=== PATIENT | male | born 1980 | race Hispanic/Latino ===

== ENCOUNTER 2017-10-09 03:27 | Emergency (ER) | payer OTHER, SELFPAY ==
[2017-10-09 03:42] VITALS: BMI 28.8
--- NOTE | 2017-10-09 04:03 | ED PDOC ---
Arrival/HPI - General Chief Complaint: Back Pain Time Seen by Provider: 10/09/17 03:28 Historian: Patient - History of Present Illness Narrative History of Present Illness (Text): 10/09/17 03:54 37 year old male, whose past medical history includes chronic neck and lower back pain, presents complaining of chronic back pain that radiates to the shoulder and neck. Patient takes Oxycodone, Methadone, and Morphine which is prescribed to him every 2 weeks. Patient states he fell 3 days ago. pt staets "he was getting out of bed, and "slid into wall" Patient denies any fever, chills, chest pain, shortness of breath, nausea, vomiting, diarrhea, urinary symptoms, headache, dizziness, or any other complaints. 10/09/17 04:52 Symptom Onset: Gradual Symptom Course: Unchanged Activities at Onset: Light Context: Home Past Medical History - Provider Review Nursing Documentation Reviewed: Yes - Tetanus Immunization Tetanus Immunization: Unknown - Cardiac Hx Cardiac Disorders: No - Pulmonary Hx Respiratory Disorders: No - Neurological Hx Neurological Disorder: Yes Other/Comment: NUMBNESS AND TINGLING SENSATION - HEENT Hx HEENT Disorder: No - Renal Hx Renal Disorder: No - Endocrine/Metabolic Hx Endocrine Disorders: No - Hematological/Oncological Hx Blood Disorders: No - Integumentary Hx Dermatological Disorder: No - Musculoskeletal/Rheumatological Hx Arthritis: Yes - Gastrointestinal Hx Gastrointestinal Disorders: Yes Other/Comment: ACID REFLUX - Genitourinary/Gynecological Hx Genitourinary Disorders: No - Psychiatric Hx Psychophysiologic Disorder: Yes Hx Depression: Yes Hx Substance Use: Yes - Surgical History Other/Comment: NECK SURGERY - Anesthesia Hx Anesthesia: Yes - Suicidal Assessment Feels Threatened In Home Enviroment: No Family/Social History - Physician Review Nursing Documentation Reviewed: Yes Family/Social History: No Known Family HX Smoking Status: Heavy Smoker > 10 Cigarettes Daily Hx Alcohol Use: No Hx Substance Use: Yes Allergies/Home Meds Allergies/Adverse Reactions: Allergies erythromycin base Allergy (Verified 10/09/17 03:48) ITCHING duloxetine HCl [From Cymbalta] Adverse Reaction (Verified 10/09/17 03:48) RASH Home Medications: Home Meds Medication Instructions Recorded Confirmed ALPRAZolam [Xanax] 2 mg PO BID 03/10/15 10/09/17 Methadone Hydrochloride [Methadone] 80 mg PO TID 03/10/15 10/09/17 Morphine Sulfate [Ms Contin] 100 mg PO Q12 03/10/15 10/09/17 Oxycodone Hydrochloride [Oxycodone] 30 mg PO Q6 03/10/15 10/09/17 Morphine Sulfate [Alexandra] 100 mg PO BID 12/17/15 10/09/17 Review of Systems - Physician Review All systems were reviewed & negative as marked: Yes - Review of Systems Constitutional: absent: Fevers, Other (Chills) Respiratory: absent: SOB Cardiovascular: absent: Chest Pain Gastrointestinal: absent: Abdominal Pain, Diarrhea, Nausea, Vomiting Genitourinary Male: absent: Dysuria, Frequency, Hematuria Musculoskeletal: Back Pain, Neck Pain, Other (Shoulder pain) Neurological: absent: Headache, Dizziness Physical Exam Vital Signs Reviewed: Yes Vital Signs Temp Pulse Resp BP Pulse Ox 10/09/17 05:16 99.5 F 99 H 17 138/82 99 10/09/17 04:22 99.7 F H 108 H 18 139/71 100 Temperature: Afebrile Blood Pressure: Normal Pulse: Tachycardic Respiratory Rate: Normal Appearance: Positive for: Well-Appearing, Non-Toxic, Comfortable Pain Distress: None Mental Status: Positive for: Alert and Oriented X 3 - Systems Exam Head: Present: Atraumatic, Normocephalic Pupils: Present: PERRL Extroacular Muscles: Present: EOMI Conjunctiva: Present: Normal Mouth: Present: Moist Mucous Membranes Neck: Present: Normal Range of Motion Respiratory/Chest: Present: Clear to Auscultation, Good Air Exchange. No: Respiratory Distress, Accessory Muscle Use Cardiovascular: Present: Regular Rate and Rhythm, Normal S1, S2. No: Murmurs Abdomen: No: Tenderness, Distention, Peritoneal Signs Back: Present: Normal Inspection, Paraspinal Tenderness, Other (healed scar to midline back). No: Midline Tenderness Upper Extremity: Present: Normal Inspection. No: Cyanosis, Edema Lower Extremity: Present: Normal Inspection. No: Edema Neurological: Present: GCS=15, CN II-XII Intact, Speech Normal, Other ((+)left leg weakness, (+)baseline) Skin: Present: Warm, Dry, Normal Color. No: Rashes Psychiatric: Present: Alert, Oriented x 3, Normal Insight, Normal Concentration Medical Decision Making ED Course and Treatment: 10/09/17 03:50 Impression: 37 year old male presents complaining of chronic back pain that radiates to the shoulders and neck. ?fall, minimal injury, no indication for any imaging, as pt states "he slid into wall" Plan: -- Toradol -- Reassess and disposition Prior Visits: Notes and results from previous visits were reviewed. Progress Notes: njrx reviewd: numours narcotic rx. pt treated with toradol im. noted low grade temp. pt denies any complaints, cough, sore throat, cardiopulm, abdominal pain, n/v/d, urinary changes. declines any eval for low grade temp. advised strict return precautions. pt reports ho of chronic leg paralysis. 10/09/17 04:53 10/04/2017 1 10/04/2017 OXYCODONE HCL 30 MG TABLET 60.0 15 MA MERRITT [id number] JOSEY ([id number]) 0 180.0 MME Private [place] 10/04/2017 1 10/04/2017 METHADONE HCL 10 MG TABLET 120.0 15 MA MERRITT [id number] JOSEY ([id number]) 0 240.0 MME [place] 10/04/2017 1 09/22/2017 DEXTROAMP-AMPHETAMIN 20 MG TAB 60.0 30 PA HRI [id number] JOSEY ([phone]) 0 Private Pay [place] 10/04/2017 1 09/22/2017 DIAZEPAM 10 MG TABLET 60.0 30 PA HRI [id number] JOSEY ([phone]) 0 Private Pay [place] 09/20/2017 1 09/20/2017 OXYCODONE HCL 30 MG TABLET 60.0 15 MA MERRITT [id number] JOSEY ([id number]) 0 180.0 MME [place] 09/20/2017 1 09/20/2017 METHADONE HCL 10 MG TABLET 120.0 15 MA MERRITT [id number] JOSEY ([id number]) 0 240.0 MME [place] 09/06/2017 1 09/06/2017 DIAZEPAM 10 MG TABLET 60.0 30 PA HRI [id number] JOSEY ([phone]) 0 Private Pay [place] 09/06/2017 1 09/06/2017 DEXTROAMP-AMPHETAMIN 20 MG TAB 60.0 30 PA HRI [id number] JOSEY ([phone]) 0 Private Pay [place] 08/22/2017 1 08/22/2017 OXYCODONE HCL 30 MG TABLET 84.0 21 MA MERRITT [id number] JOSEY ([phone]) 0 180.0 [facility] [place] 08/22/2017 1 08/22/2017 METHADONE HCL 10 MG TABLET 168.0 21 MA MERRITT [id number] JOSEY ([phone]) 0 240.0 MME [place] 08/16/2017 1 08/16/2017 OXYCODONE HCL 30 MG TABLET 60.0 15 MA MERRITT [id number] JOSEY ([phone]) 0 180.0 MME [place] 08/16/2017 1 08/16/2017 METHADONE HCL 10 MG TABLET 120.0 15 MA MERRITT [id number] JOSEY ([phone]) 0 240.0 MME [place] 08/12/2017 1 08/12/2017 DEXTROAMP-AMPHETAMIN 20 MG TAB 60.0 30 PA HRI [id number] JOSEY ([phone]) 0 Private Pay [place] 08/12/2017 1 08/12/2017 DIAZEPAM 10 MG TABLET 60.0 30 PA HRI [id number] JOSEY ([phone]) 0 Private Pay [place] 08/02/2017 1 08/02/2017 OXYCODONE HCL 30 MG TABLET 60.0 15 MA MERRITT [id number] JOSEY ([phone]) 0 180.0 MME [place] 08/02/2017 1 08/02/2017 METHADONE HCL 10 MG TABLET 120.0 15 MA MERRITT [id number] JOSEY ([phone]) 0 240.0 MME [place] 06/28/2017 1 06/28/2017 DEXTROAMP-AMPHETAMIN 20 MG TAB 60.0 30 PA HRI [id number] JOSEY ([phone]) 0 Private Pay [place] 06/21/2017 1 06/21/2017 MORPHINE SULF ER 60 MG TABLET 30.0 15 MA MERRITT [id number] JOSEY ([id number]) 0 120.0 MME Private [place] 06/21/2017 1 06/21/2017 OXYCODONE HCL 30 MG TABLET 60.0 15 MA MERRITT [id number] JOSEY ([phone]) 0 180.0 MME Private [place] 06/21/2017 1 06/21/2017 METHADONE HCL 10 MG TABLET 120.0 15 MA MERRITT [id number] JOSEY ([phone]) 0 240.0 MME Private [place] 10/09/17 05:08 10/09/17 06:44 - Medication Orders Current Medication Orders: Discontinued Medications Ketorolac Tromethamine (Toradol) 30 mg IM STAT STA Stop: 10/09/17 03:54 Last Admin: 10/09/17 04:07 Dose: 30 mg MAR Pain Assessment Document 10/09/17 04:07 IT (Rec: 10/09/17 04:07 IT [id number]) Pain Reassessment Is this a pain reassessment? No Sleep Is patient sleeping during reassessment? No Presence of Pain Presence of Pain Yes Pain Scale Used Pain Scale Used Numeric IM Administration Charges Document 10/09/17 04:07 IT (Rec: 10/09/17 04:07 IT [id number]) Injection Site MAR Injection Site Right Deltoid Charges for Administration # of IM Administrations 1 - Scribe Statement The provider has reviewed the documentation as recorded by the Francheska Sousa Provider Scribe Attestation: All medical record entries made by the Scribe were at my direction and personally dictated by me. I have reviewed the chart and agree that the record accurately reflects my personal performance of the history, physical exam, medical decision making, and the department course for this patient. I have also personally directed, reviewed, and agree with the discharge instructions and disposition. Disposition/Present on Arrival - Present on Arrival Any Indicators Present on Arrival: No History of DVT/PE: No History of Uncontrolled Diabetes: No Urinary Catheter: No History of Decub. Ulcer: No History Surgical Site Infection Following: None - Disposition Have Diagnosis and Disposition been Completed?: Yes Diagnosis: Back pain Disposition: HOME/ ROUTINE Disposition Time: 04:00 Condition: STABLE Discharge Instructions (ExitCare): Upper Back Pain Additional Instructions: return to er with worsening symptoms or concenrs. Referrals: [facility] [Outside] - Follow up with primary [facility] [Outside] - Follow up with primary Forms: [employer] (Japanese)
[2017-10-09 05:17] VITALS: BP 138/82; PULSE 99; RESP 17; TEMP 99.5; O2SAT 99
== END 2017-10-09 05:17 | disposition home or self-care (01) ==
LOC: ED 03:27
DX: M54.5 Low back pain (principal); F17.210 Nicotine dependence, cigarettes, uncomplicated
CPT/HCPCS: 96372; 99282; J1885

== ENCOUNTER 2017-11-05 23:30 | Inpatient (IN) | payer MEDICAID, OTHER ==
[2017-11-05 23:37] VITALS: BMI 32.5
[2017-11-06] MEDS ORDERED: Sodium Chloride 0.9% 1,000 ML IV STA
[2017-11-06 00:17] LABS: BASO # 0.02 K/mm3 (0.0-2.0); BASO % 0.3 % (0.0-3.0); EOS % 0.3 % (1.5-5.0); GRAN # 5.1 (1.4-6.5); GRAN % 68.3 % (50.0-68.0); HEMOGLOBIN 14.1 g/dL (14.0-18.0); LYMPH # 1.8 (1.2-3.4); LYMPH % 23.6 % (22.0-35.0); MEAN CELL VOLUME 83.5 fl (80.0-105.0); MEAN CORPUSCULAR HEMOGLOBIN 28.4 pg (25.0-35.0); MEAN PLATELET VOLUME 9.2 fl (7.0-11.0); MONO # 0.6 (0.1-0.6); MONO % 7.5 % (1.0-6.0); RBC 4.97 10^6/uL (3.5-6.1); RED CELL DISTRIBUTION WIDTH 13.6 % (11.5-14.5); WHITE BLOOD COUNT 7.5 10^3/ul (4.5-11.0)
[2017-11-06 00:25] LABS: BLOOD UREA NITROGEN 12 mg/dL (7-21); CALCIUM 10.5 mg/dL (8.4-10.5); GFR NON-AFRICAN AMERICAN > 60
--- NOTE | 2017-11-06 00:32 | ED PDOC ---
Arrival/HPI - General Chief Complaint: Psychiatric Evaluation Time Seen by Provider: 11/05/17 23:36 Historian: Patient - History of Present Illness Narrative History of Present Illness (Text): 11/06/17 00:00 37 year old male, whose past medical history includes chronic neck and lower back pain, presents to the emergency department complaining of visual hallucinations for the past few days. As per mother, patient is "talking out of his head". Patient is oriented x3 but will say things like "Look over there she' s behind you. Look out she's about to hurt you" or be found talking to his clothes on the floor. Patient denies taking any drugs, any illicit drug use, or any alcohol use. Patient is taking Methadone. Mother states he has degenerative disc disease and had back surgery several months ago and still having back pain and left leg weakness. Patient is complaining of headache, but denies any fever , chills, chest pain, shortness of breath, nausea, vomiting, diarrhea, urinary symptoms, neck pain, dizziness, suicidal/homicidal Ideation, auditory hallucinations, or any other complaints. PMD: Dr. Gasca Time/Duration: Other (few days) Symptom Onset: Sudden Symptom Course: Unchanged Activities at Onset: Light Context: Home Past Medical History - Provider Review Nursing Documentation Reviewed: Yes - Tetanus Immunization Tetanus Immunization: Unknown - Cardiac Hx Cardiac Disorders: No - Pulmonary Hx Respiratory Disorders: No - Neurological Hx Neurological Disorder: Yes Other/Comment: NUMBNESS AND TINGLING SENSATION - HEENT Hx HEENT Disorder: No - Renal Hx Renal Disorder: No - Endocrine/Metabolic Hx Endocrine Disorders: No - Hematological/Oncological Hx Blood Disorders: No - Integumentary Hx Dermatological Disorder: No - Musculoskeletal/Rheumatological Hx Arthritis: Yes - Gastrointestinal Hx Gastrointestinal Disorders: Yes Other/Comment: ACID REFLUX - Genitourinary/Gynecological Hx Genitourinary Disorders: No - Psychiatric Hx Psychophysiologic Disorder: Yes Hx Depression: Yes Hx Substance Use: Yes - Surgical History Other/Comment: NECK SURGERY - Anesthesia Hx Anesthesia: Yes - Suicidal Assessment Feels Threatened In Home Enviroment: No Family/Social History - Physician Review Nursing Documentation Reviewed: Yes Family/Social History: No Known Family HX Smoking Status: Heavy Smoker > 10 Cigarettes Daily Hx Alcohol Use: No Hx Substance Use: Yes Allergies/Home Meds Allergies/Adverse Reactions: Allergies erythromycin base Allergy (Verified 11/05/17 23:35) ITCHING duloxetine HCl [From Cymbalta] Adverse Reaction (Verified 11/05/17 23:35) RASH Home Medications: Home Meds Medication Instructions Recorded Confirmed ALPRAZolam [Xanax] 2 mg PO BID 03/10/15 11/05/17 Methadone Hydrochloride [Methadone] 80 mg PO TID 03/10/15 11/05/17 Morphine Sulfate [Ms Contin] 100 mg PO Q12 03/10/15 11/05/17 Oxycodone Hydrochloride [Oxycodone] 30 mg PO Q6 03/10/15 11/05/17 Morphine Sulfate [Alexandra] 100 mg PO BID 12/17/15 11/05/17 Review of Systems - Physician Review All systems were reviewed & negative as marked: Yes - Review of Systems Constitutional: absent: Fevers, Other (Chills) Respiratory: absent: SOB Cardiovascular: absent: Chest Pain Gastrointestinal: absent: Abdominal Pain, Diarrhea, Nausea, Vomiting Genitourinary Male: absent: Dysuria, Frequency, Hematuria Musculoskeletal: Back Pain. absent: Neck Pain Neurological: Headache, Other (Left leg weakness). absent: Dizziness Psychiatric: Other ((+) visual hallucinations (+) auditory hallucinations). absent: Suicidal Ideation (homicidal ideation) Physical Exam Vital Signs Reviewed: Yes Vital Signs Temp Pulse Resp BP Pulse Ox 11/06/17 18:10 97.2 F L 95 H 20 144/100 H 98 11/06/17 16:10 98 F 98 H 20 138/95 H 96 11/06/17 13:50 98 F 96 H 20 144/96 H 97 11/06/17 11:45 100 H 20 138/100 H 96 11/06/17 10:00 106 H 20 142/96 H 96 11/06/17 07:22 98.2 F 104 H 18 138/100 H 98 11/06/17 06:54 99 H 18 142/100 H 99 11/06/17 05:30 103 H 18 98 11/06/17 03:30 105 H 18 97 11/06/17 01:30 106 H 18 98 11/05/17 23:45 98.6 F 11/05/17 23:41 135 H 16 158/127 H 99 Temperature: Afebrile Blood Pressure: Hypertensive Pulse: Tachycardic Respiratory Rate: Normal Appearance: Positive for: Well-Appearing, Non-Toxic, Comfortable Pain Distress: None Mental Status: Positive for: Alert and Oriented X 3 (bu does say nonsense things ) - Systems Exam Head: Present: Atraumatic, Normocephalic Pupils: Present: PERRL Extroacular Muscles: Present: EOMI Conjunctiva: Present: Normal Mouth: Present: Moist Mucous Membranes Neck: Present: Normal Range of Motion Respiratory/Chest: Present: Clear to Auscultation, Good Air Exchange. No: Respiratory Distress, Accessory Muscle Use Cardiovascular: Present: Tachycardic. No: Murmurs Abdomen: Present: Tenderness (mild diffuse tenderness). No: Distention, Peritoneal Signs Back: Present: Normal Inspection, Other (Well healed surgical scar at the midline thorasic spine with no surrounding signs of infection) Upper Extremity: Present: Normal Inspection, Other (5/5 strength ). No: Cyanosis, Edema Lower Extremity: Present: Normal Inspection, Other (4/5 strength on left leg). No: Edema Neurological: Present: GCS=15, CN II-XII Intact, Speech Normal Skin: Present: Warm, Dry, Normal Color. No: Rashes Psychiatric: Present: Alert, Oriented x 3, Normal Insight, Normal Concentration Medical Decision Making ED Course and Treatment: 11/06/17 00:00 Impression: 37 year old male presents for evaluation of visual hallucinations that began a few days ago. Plan: -- CT Head w/o contrast -- Labs -- IV Fluids -- EKG -- Reassess and disposition Prior Visits: Notes and results from previous visits were reviewed. Progress Notes: EKG shows Sinus tachycardia at 131 BPM with QRS normal, QTC normal, Normal axis. Interpreted by me. 11/06/17 04:57 PES seen and evaluated patient. Patient will be screened in [address] head done and was unremarkable. - Lab Interpretations Lab Results: 11/06/17 00:00 11/06/17 00:00 Lab Results 11/06/17 03:00: Urine Color Yellow, Urine Appearance Clear, Urine pH 6.0, Ur Specific [place] 1.020, Urine Protein Negative, Urine Glucose (UA) Negative, Urine Ketones Trace H, Urine Blood Negative, Urine Nitrate Negative, Urine Bilirubin Negative, Urine Urobilinogen 0.2, Ur Leukocyte Esterase Negative 11/06/17 03:00: Urine Opiates Screen Positive H, Urine Methadone Screen Positive H, Ur Barbiturates Screen Negative, Ur Phencyclidine Scrn Negative, Ur Amphetamines Screen Negative, U Benzodiazepines Scrn Positive H, U Oth Cocaine Metabols Negative, U Cannabinoids Screen Negative 11/06/17 00:00: Alcohol, Quantitative < 10 11/06/17 00:00: Sodium 142, Potassium 3.4 L, Chloride 93 L, Carbon Dioxide 31, Anion Gap 21 H, BUN 12, Creatinine 0.7 L, Est GFR ( Amer) > 60, Est GFR ( Non-Af Amer) > 60, Random Glucose 105, Calcium 10.5 11/06/17 00:00: WBC 7.5, RBC 4.97, Hgb 14.1, Hct 41.5 L, MCV 83.5, MCH 28.4, MCHC 34.0, RDW 13.6, Plt Count 275, MPV 9.2, Gran % 68.3 H, Lymph % (Auto) 23.6 , [place] % (Auto) 7.5 H, Eos % (Auto) 0.3 L, Baso % (Auto) 0.3, Gran # 5.10, Lymph # (Auto) 1.8, [place] # (Auto) 0.6, Eos # (Auto) 0.0, Baso # (Auto) 0.02 I have reviewed the lab results: Yes - RAD Interpretation Narrative RAD Interpretations (Text): CT Head Without Intravenous Contrast EXAM DATE/TIME: 11/06/2017 12:00 AM CLINICAL HISTORY: 37 years old, male; Signs and symptoms; Altered mental status/memory loss; Patient HX: AMS TECHNIQUE: Axial computed tomography images of the head/brain without intravenous contrast. All CT scans at this facility use at least one of these dose optimization techniques: automated exposure control; mA and/or kV adjustment per patient size (includes targeted exams where dose is matched to clinical indication); or iterative reconstruction. Coronal and sagittal reformatted images were created and reviewed. COMPARISON: No relevant prior studies available. FINDINGS: Brain: Normal. No hemorrhage. No significant white matter disease. No edema. Ventricles: Normal. No ventriculomegaly. Bones/joints: Normal. No acute fracture. Sinuses: There is trace mucoperiosteal thickening in the maxillary sinuses, consistent with chronic sinusitis. Mastoid air cells: Normal as visualized. No mastoid effusion. Soft tissues: Normal. IMPRESSION: No evidence of an acute intracranial abnormality. Thank you for allowing us to participate in the care of your patient. Dictated and Authenticated by: Misa Anderson MD 11/06/2017 6:26 AM Eastern Time ([place] & [place]) Radiology Orders: 11/06/17 00:00 HEAD W/O CONTRAST [CT] Stat - EKG Interpretation Interpreted by ED Physician: Yes Type: 12 lead EKG - Medication Orders Current Medication Orders: Docusate Sodium (Colace) 100 mg PO BID BOBBY Last Admin: 11/06/17 18:24 Dose: Haloperidol Lactate (Haldol) 2 mg IVP Q6 PRN; Protocol PRN Reason: Agitation Lorazepam (Ativan) 2 mg IVP Q4H PRN; Protocol PRN Reason: Anxiety Last Admin: 11/06/17 18:04 Dose: 2 mg IVP Administration Document 11/06/17 18:04 SRE (Rec: 11/06/17 18:05 SRE [id number]) Charges for Administration # of IVP Administrations 1 Polyethylene Glycol (Miralax) 17 gm PO BID BOBBY Discontinued Medications Docusate Sodium (Colace) 100 mg PO STAT STA Stop: 11/06/17 17:38 Last Admin: 11/06/17 18:05 Dose: 100 mg Last Bowel Movement Document 11/06/17 18:05 SRE (Rec: 11/06/17 18:05 SRE [id number]) Last Bowel Movement Last Bowel Movement 11/04/17 Haloperidol Lactate (Haldol) 3 mg IM STAT STA PRN Reason: Protocol Stop: 11/06/17 07:41 Last Admin: 11/06/17 08:16 Dose: 3 mg IM Administration Charges Document 11/06/17 08:16 SRE (Rec: 11/06/17 08:16 SRE [id number]) Injection Site MAR Injection Site Left Deltoid Charges for Administration # of IM Administrations 1 Sodium Chloride (Sodium Chloride 0.9%) 1,000 mls @ 999 mls/hr IV .Q1H1M STA Stop: 11/06/17 01:00 Last Admin: 11/06/17 00:10 Dose: 999 mls/hr eMAR Start Stop Document 11/06/17 00:10 JOL (Rec: 11/06/17 03:08 JOL [id number]) Intravenous Solution Start Date 11/06/17 Start Time 00:10 End Date 11/06/17 End time 01:11 Total Infusion Time 61 Ketorolac Tromethamine (Toradol) 30 mg IVP STAT STA Stop: 11/06/17 04:49 Last Admin: 11/06/17 04:59 Dose: 30 mg MAR Pain Assessment Document 11/06/17 04:59 JOL (Rec: 11/06/17 04:59 JOL [id number]) Pain Reassessment Is this a pain reassessment? No Sleep Is patient sleeping during reassessment? No Presence of Pain Presence of Pain Yes Pain Scale Used Pain Scale Used Numeric Location Pain Location Body Site Back Description Pain Behavior Moaning Crying Irritability Restlessness Facial Grimacing Screaming Aggravating Factors ADL's Changing Position IVP Administration Document 11/06/17 04:59 JOL (Rec: 11/06/17 04:59 JOL [id number]) Charges for Administration # of IVP Administrations 1 Lorazepam (Ativan) 2 mg IVP ONCE ONE PRN Reason: Protocol Stop: 11/06/17 01:20 Last Admin: 11/06/17 01:05 Dose: 2 mg IVP Administration Document 11/06/17 01:05 JOL (Rec: 11/06/17 03:07 [id number]) Charges for Administration # of IVP Administrations 1 Lorazepam (Ativan) 1 mg IM ONCE ONE PRN Reason: Protocol Stop: 11/06/17 07:41 Last Admin: 11/06/17 08:15 Dose: 1 mg IM Administration Charges Document 11/06/17 08:15 SRE (Rec: 11/06/17 08:16 SRE [id number]) Injection Site MAR Injection Site Right Gluteus Az Charges for Administration # of IM Administrations 1 Polyethylene Glycol (Miralax) 17 gm PO STAT STA Stop: 11/06/17 17:38 Last Admin: 11/06/17 19:00 Dose: 17 gm Potassium Chloride (K-Dur 20 Meq Er Tab) 40 meq PO STAT STA Stop: 11/06/17 17:42 Last Admin: 11/06/17 18:05 Dose: 40 meq - Transfer of Care Patient signed out to Dr:: Imm Other: Pending psych screen - Scribe Statement The provider has reviewed the documentation as recorded by the Scribe Arielle Sousa Provider Scribe Attestation: All medical record entries made by the Scribe were at my direction and personally dictated by me. I have reviewed the chart and agree that the record accurately reflects my personal performance of the history, physical exam, medical decision making, and the department course for this patient. I have also personally directed, reviewed, and agree with the discharge instructions and disposition. Disposition/Present on Arrival - Present on Arrival Any Indicators Present on Arrival: No History of DVT/PE: No History of Uncontrolled Diabetes: No Urinary Catheter: No History of Decub. Ulcer: No History Surgical Site Infection Following: None - Disposition Have Diagnosis and Disposition been Completed?: Yes Diagnosis: Altered mental status Disposition: HOSPITALIZED Disposition Time: 07:00 (Signed out due to shift change) Patient Problems: Current Active Problems Problem Status Onset Altered mental status Acute Condition: FAIR
[2017-11-06 03:32] LABS: URINE BILIRUBIN NEGATIVE (NEGATIVE); URINE BLOOD NEGATIVE (NEGATIVE); URINE GLUCOSE (UA) NEGATIVE (NEGATIVE); URINE LEUKOCYTE ESTERASE NEGATIVE Leu/uL (NEGATIVE); URINE PROTEIN NEGATIVE mg/dL (<30 mg/dL); URINE UROBILINOGEN 0.2 E.U./dL (<1 E.U./dL)
[2017-11-06 03:34] LABS: BARBITURATES, UR NEGATIVE (NEGATIVE); BENZODIAZEPINES, UR POSITIVE (NEGATIVE); OPIATES, UR POSITIVE (NEGATIVE); PHENCYCLIDINE, UR NEGATIVE (NEGATIVE)
[2017-11-06 06:11] LABS: URINE APPEARANCE CLEAR (CLEAR); URINE COLOR YELLOW (YELLOW)
--- NOTE | 2017-11-06 08:23 | CT ---
Date of service: 11/06/2017 PROCEDURE: CT HEAD WITHOUT CONTRAST. HISTORY: altered mental status COMPARISON: None available. TECHNIQUE: Axial computed tomography images were obtained through the head/brain without intravenous contrast. Radiation dose: Total exam DLP = 1083.02 mGy-cm. This CT exam was performed using one or more of the following dose reduction techniques: Automated exposure control, adjustment of the mA and/or kV according to patient size, and/or use of iterative reconstruction technique. FINDINGS: HEMORRHAGE: No intracranial hemorrhage. BRAIN: No mass effect or edema. No atrophy or chronic microvascular ischemic changes. VENTRICLES: No hydrocephalus. CALVARIUM: Unremarkable. PARANASAL SINUSES: Trace mucoperiosteal thickening of the maxillary sinuses consistent with chronic sinusitis. MASTOID AIR CELLS: Unremarkable as visualized. No inflammatory changes. OTHER FINDINGS: None. IMPRESSION: No acute intracranial pathology identified. Preliminary impression was provided by virtual radiologic.
--- NOTE | 2017-11-06 16:26 | ED PDOC ---
Physical Exam - Physical Exam Narrative Physical Exam (Text): Signed out to me at change of shift pending psych eval. Psych and [facility] screen[place] evaluated patient and recommending medical admission for altered mental status. Vital Signs Temp Pulse Resp BP Pulse Ox 11/06/17 16:10 98 F 98 H 20 138/95 H 96 11/06/17 13:50 98 F 96 H 20 144/96 H 97 11/06/17 11:45 100 H 20 138/100 H 96 11/06/17 10:00 106 H 20 142/96 H 96 11/06/17 07:22 98.2 F 104 H 18 138/100 H 98 11/06/17 06:54 99 H 18 142/100 H 99 11/06/17 05:30 103 H 18 98 11/06/17 03:30 105 H 18 97 11/06/17 01:30 106 H 18 98 11/05/17 23:45 98.6 F 11/05/17 23:41 135 H 16 158/127 H 99 Medical Decision Making - Lab Interpretations Lab Results: 11/06/17 00:00 11/06/17 00:00 Lab Results 11/06/17 03:00: Urine Color Yellow, Urine Appearance Clear, Urine pH 6.0, Ur Specific Hallam 1.020, Urine Protein Negative, Urine Glucose (UA) Negative, Urine Ketones Trace H, Urine Blood Negative, Urine Nitrate Negative, Urine Bilirubin Negative, Urine Urobilinogen 0.2, Ur Leukocyte Esterase Negative 11/06/17 03:00: Urine Opiates Screen Positive H, Urine Methadone Screen Positive H, Ur Barbiturates Screen Negative, Ur Phencyclidine Scrn Negative, Ur Amphetamines Screen Negative, U Benzodiazepines Scrn Positive H, U Oth Cocaine Metabols Negative, U Cannabinoids Screen Negative 11/06/17 00:00: Alcohol, Quantitative < 10 11/06/17 00:00: Sodium 142, Potassium 3.4 L, Chloride 93 L, Carbon Dioxide 31, Anion Gap 21 H, BUN 12, Creatinine 0.7 L, Est GFR ( Amer) > 60, Est GFR ( Non-Af Amer) > 60, Random Glucose 105, Calcium 10.5 11/06/17 00:00: WBC 7.5, RBC 4.97, Hgb 14.1, Hct 41.5 L, MCV 83.5, MCH 28.4, MCHC 34.0, RDW 13.6, Plt Count 275, MPV 9.2, Gran % 68.3 H, Lymph % (Auto) 23.6 , [place] % (Auto) 7.5 H, Eos % (Auto) 0.3 L, Baso % (Auto) 0.3, Gran # 5.10, Lymph # (Auto) 1.8, [place] # (Auto) 0.6, Eos # (Auto) 0.0, Baso # (Auto) 0.02 - RAD Interpretation Radiology Orders: 11/06/17 00:00 HEAD W/O CONTRAST [CT] Stat - Medication Orders Current Medication Orders: Discontinued Medications Haloperidol Lactate (Haldol) 3 mg IM STAT STA PRN Reason: Protocol Stop: 11/06/17 07:41 Last Admin: 11/06/17 08:16 Dose: 3 mg IM Administration Charges Document 11/06/17 08:16 SRE (Rec: 11/06/17 08:16 SRE [id number]) Injection Site MAR Injection Site Left Deltoid Charges for Administration # of IM Administrations 1 Sodium Chloride (Sodium Chloride 0.9%) 1,000 mls @ 999 mls/hr IV .Q1H1M STA Stop: 11/06/17 01:00 Last Admin: 11/06/17 00:10 Dose: 999 mls/hr eMAR Start Stop Document 11/06/17 00:10 JOL (Rec: 11/06/17 03:08 [facility] [id number] Intravenous Solution Start Date 11/06/17 Start Time 00:10 End Date 11/06/17 End time 01:11 Total Infusion Time 61 Ketorolac Tromethamine (Toradol) 30 mg IVP STAT STA Stop: 11/06/17 04:49 Last Admin: 11/06/17 04:59 Dose: 30 mg MAR Pain Assessment Document 11/06/17 04:59 JOL (Rec: 11/06/17 04:59 JOL [facility] [id number]) Pain Reassessment Is this a pain reassessment? No Sleep Is patient sleeping during reassessment? No Presence of Pain Presence of Pain Yes Pain Scale Used Pain Scale Used Numeric Location Pain Location Body Site Back Description Pain Behavior Moaning Crying Irritability Restlessness Facial Grimacing Screaming Aggravating Factors ADL's Changing Position IVP Administration Document 11/06/17 04:59 JOL (Rec: 11/06/17 04:59 JOL [facility] [id number]) Charges for Administration # of IVP Administrations 1 Lorazepam (Ativan) 2 mg IVP ONCE ONE PRN Reason: Protocol Stop: 11/06/17 01:20 Last Admin: 11/06/17 01:05 Dose: 2 mg IVP Administration Document 11/06/17 01:05 JOL (Rec: 11/06/17 03:07 JOL [facility] [id number]) Charges for Administration # of IVP Administrations 1 Lorazepam (Ativan) 1 mg IM ONCE ONE PRN Reason: Protocol Stop: 11/06/17 07:41 Last Admin: 11/06/17 08:15 Dose: 1 mg IM Administration Charges Document 11/06/17 08:15 SRE (Rec: 11/06/17 08:16 SRE [id number]) Injection Site MAR Injection Site Right Gluteus Az Charges for Administration # of IM Administrations 1 Disposition/Present on Arrival - Present on Arrival Any Indicators Present on Arrival: No History of DVT/PE: No History of Uncontrolled Diabetes: No Urinary Catheter: No History of Decub. Ulcer: No History Surgical Site Infection Following: None - Disposition Have Diagnosis and Disposition been Completed?: Yes Diagnosis: Altered mental status Disposition: HOSPITALIZED Disposition Time: 16:26 Patient Plan: Admission Condition: FAIR Referrals: Butch Gasca MD [Primary Care Provider] - Follow up with primary Forms: goBramble (German)
[2017-11-06] MEDS ORDERED: POLYETHYLENE GLYCOL 3350 17 GM/Dose PACKET PO STA (17:37)
[2017-11-06] MEDS ORDERED: Potassium Chloride 20 mEq ER Tab PO STA (17:41)
--- NOTE | 2017-11-06 18:16 | CP.PCM.HP ---
<Butch Pittman - Last Filed: 11/06/17 19:50> History of Present Illness - History of Present Illness History of Present Illness: Butch Pittman PGY2 IM H&P for Dr. Clinton cc: visual hallucinations Mr. Haro is a 37 year old male with a PMH of cervical radiculopathy w/ herniated disc, cervical spondylosis w/ myelopathy, thoracic spondylosis and depression who was brought in to the ED accompanied with his mother for a 2 week intermittent period of agitation, visual hallucinations, screaming, and "acting weird." HPI was offered by the mother, as patient is altered. She states that for the past 2 weeks, he's had intermittent periods of screaming, agitation and visual hallucinations where he talks to people not there. Per mother, he sits in his room and minimally ambulates with assistance of rollator ; she also states that his room has been smelling of urine lately. She admits there's a chance that he took more or less of his medications. She states that he takes Oxycodone and Ms Contin from Dr. Lopez (pain MD) in [place] and no longer takes Xanax (which he used to take for his depression). 12-pt ROS could not be obtained due to AMS. In ED, patient was screened by [facility] [place], but was not accepted, and they recommended medical admission. Patient was given Ativan and Haldol in ED. When seen, he is not agitated and is alert but not oriented. The patient admits to seeing dogs around him. PMH: as above PSH: anterior cervical discectomy and fusion of C6-C7 (03/2015). Partial vertebrectomy of C6-C7, discectomy of C6-C7 and interbody fusion of C6-C7 w/ PEEK and bone, plating and instrucmention from C6-7 (03/2015). And T2-4 thoracic laminectomy w/ posterolateral fusion (12/2015) Meds: needs to be checked Allergies: Erythromycin SHx: per mother, former heavy tobacco smoker, currently uses vaporizer; denies EtOH and recreational drugs. 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, former shipyard work Present on Admission - Present on Admission Any Indicators Present on Admission: No Review of Systems - Review of Systems All systems: reviewed and no additional remarkable complaints except (as per HPI ) Past Patient History - Tetanus Immunizations Tetanus Immunization: Unknown - Past Medical History & Family History Past Medical History?: Yes - Past Social History Smoking Status: Heavy Smoker > 10 Cigarettes Daily Alcohol: None Drugs: Denies Home Situation {Lives}: With Family - CARDIAC Hx Cardiac Disorders: No - PULMONARY Hx Respiratory Disorders: No - NEUROLOGICAL Hx Neurological Disorder: Yes (cervical and thoracic radiculopathy) - HEENT Hx HEENT Problems: No - RENAL Hx Chronic Kidney Disease: No - ENDOCRINE/METABOLIC Hx Endocrine Disorders: No - HEMATOLOGICAL/ONCOLOGICAL Hx Blood Disorders: No - INTEGUMENTARY Hx Dermatological Problems: No - MUSCULOSKELETAL/RHEUMATOLOGICAL Hx Arthritis: Yes - GASTROINTESTINAL Hx Gastrointestinal Disorders: No Other/Comment: ACID REFLUX - GENITOURINARY/GYNECOLOGICAL Hx Genitourinary Disorders: No - PSYCHIATRIC Hx Psychophysiologic Disorder: Yes Hx Depression: Yes Hx Substance Use: Yes - SURGICAL HISTORY Hx Orthopedic Surgery: Yes (3 orthopedic sxs noted in HPI) - ANESTHESIA Hx Anesthesia: Yes Meds Allergies/Adverse Reactions: Allergies Allergy/AdvReac Type Severity Reaction Status Date / Time erythromycin base Allergy ITCHING Verified 11/05/17 23:35 duloxetine HCl AdvReac RASH Verified 11/05/17 23:35 [From Cymbalta] Physical Exam - Constitutional Appears: Non-toxic, No Acute Distress, Unkempt, Confused - Head Exam Head Exam: ATRAUMATIC, NORMAL INSPECTION - Eye Exam Eye Exam: Normal appearance. absent: PERRL Pupil Exam: Mydriatic - ENT Exam ENT Exam: Mucous Membranes Dry - Neck Exam Neck exam: Positive for: Normal Inspection, Tenderness. Negative for: Meningismus - Respiratory Exam Respiratory Exam: NORMAL BREATHING PATTERN. absent: Rales, Rhonchi, Wheezes - Cardiovascular Exam Cardiovascular Exam: RRR, +S1, +S2 - GI/Abdominal Exam GI & Abdominal Exam: Guarding, Hypoactive Bowel Sounds, Soft, Tenderness. absent: Rebound, Rigid - Extremities Exam Additional comments: multiple bites on right leg and scrotal area - Back Exam Back exam: absent: NORMAL INSPECTION (midline thoracic scar) - Neurological Exam Neurological exam: Altered Additional comments: not oriented to place or time - Expanded Neurological Exam Expanded Cranial nerves: Nystagmus: Normal, Tongue Deviation: Normal Neuro motor strength exam: Left Upper Extremity: 5, Right Upper Extremity: 5, Left Lower Extremity: 4, Right Lower Extremity: 5 - Psychiatric Exam Psychiatric exam: Normal Mood - Skin Skin Exam: Warm Results - Vital Signs Recent Vital Signs: Last Vital Signs Temp 98 F 11/06/17 16:10 Pulse 98 H 11/06/17 16:10 Resp 20 11/06/17 16:10 BP 138/95 H 11/06/17 16:10 Pulse Ox 96 11/06/17 16:10 - Labs Result Diagrams: 11/06/17 00:00 11/06/17 18:03 Assessment & Plan - Assessment and Plan (Free Text) Assessment: 37 year old male with a PMH of cervical radiculopathy w/ herniated disc, cervical spondylosis w/ myelopathy, thoracic spondylosis and depression who was brought in to the ED accompanied with his mother for a 2 week worsening delerium , likely 2/2 polypharmacy with multiple opioid medications. will need to rule out infectious or metabolic causes. Plan: 1. Acute delerium - TSH ordered - drug screen was positive for opiates, methadone and benzos; these are his prescribed meds - Ativan and Haldol PRN - holding home pain meds to avoid over-medication - fall risk - Neurology consulted, recs appreciated - Psych consulted, recs appreciated - CXR ordered - blood and urine cultures ordered - bladder scan ordered 2. Constipation - abdominal XR ordered to r/o obstruction - coalce and miralax ordered - monitor for BMs 3. Hypokalemia - repleted 3. PPX - pepcid for GI ppx - SCDs for DVT ppx Case was reviewed and discussed with attending, Dr. Clinton <Denia Clinton - Last Filed: 11/07/17 11:49> Results - Vital Signs Recent Vital Signs: Last Vital Signs Temp 98.2 F 11/06/17 22:00 Pulse 105 H 11/06/17 22:00 Resp 20 11/06/17 22:00 BP 135/94 H 11/06/17 22:00 Pulse Ox 100 11/06/17 22:00 - Labs Result Diagrams: 11/07/17 06:30 11/07/17 06:30 Labs: Laboratory Results - last 24 hr 11/06/17 11/06/17 11/07/17 18:03 18:03 06:30 WBC 6.6 RBC 4.69 Hgb 12.9 L Hct 39.7 L MCV 84.6 MCH 27.5 MCHC 32.5 RDW 13.9 Plt Count 247 MPV 9.3 Sodium 141 Potassium 3.3 L Chloride 95 L Carbon Dioxide 32 Anion Gap 17 BUN 9 Creatinine 0.6 L Est GFR ( Amer) > 60 Est GFR (Non-Af Amer) > 60 Random Glucose 98 Calcium 9.7 Phosphorus 4.1 Magnesium 2.0 Total Bilirubin 0.4 AST 24 ALT 22 Alkaline Phosphatase 58 Total Protein 8.1 Albumin 4.1 Globulin 4.0 Albumin/Globulin Ratio 1.0 L Free T4 TSH 3rd Generation 0.42 L 11/07/17 11/07/17 06:30 06:30 WBC RBC Hgb Hct MCV MCH MCHC RDW Plt Count MPV Sodium 145 Potassium 3.8 Chloride 99 Carbon Dioxide 29 Anion Gap 21 H BUN 8 Creatinine 0.6 L Est GFR ( Amer) > 60 Est GFR (Non-Af Amer) > 60 Random Glucose 95 Calcium 9.9 Phosphorus 4.1 Magnesium 2.1 Total Bilirubin 0.6 AST 25 ALT 20 Alkaline Phosphatase 59 Total Protein 8.5 H Albumin 4.3 Globulin 4.3 Albumin/Globulin Ratio 1.0 L Free T4 2.66 H TSH 3rd Generation 0.45 L Attending/Attestation - Attestation I have personally seen and examined this patient.: Yes I have fully participated in the care of the patient.: Yes I have reviewed all pertinent clinical information: Yes Notes (Text): Patient seen and examined by me at 5:15PM with resident 11/06/17. Case including HPI, physical exam, and assessment and plan discussed with resident. Agree with above with following additions/corrections. Patient is a 37 year old male with past medical history that is significant for cervical radiculopathy with herniated disc, cervical spondylosis with myelopathy , thoracic spondylosis, and depression that presented to the emergency room with visual hallucinations. Patient altered and history taken from mother. Per mother, patient has been "acting weird" for the past 2 weeks. She states that he has been having hallucinations. She states he has progressively been getting worse over the past 2 weeks. She is unsure if he has been taking his chronic pain medications appropriately. She is unsure if he has taken too many or if he has not been taking the correct dose and may be withdrawing. Mother was unable to provide any other history. Unable to obtain review of systems from patient as patient is altered and hallucinating. Patient appears to be having conversations with people that are not present. Family History: Mom is alive and has chronic back pain and disc issues. Unsure of father's history. Physical exam: General: Awake and alert lying in bed in no acute distress HEENT: Normocephalic atraumatic. Pupils equal reactive. No scleral icterus. Oropharynx is pink. Positive dry mucous membranes. Poor dentition. No pharyngeal erythema or exudate appreciated. Neck is supple. Hearing grossly intact. Ears and nose externally unremarkable Cardiovascular: Normal rhythm. Normal S1, S2. No murmurs, rubs, or gallops appreciated Pulmonary: Normal respiratory effort. No rhonchi, rales or wheezing appreciated. Gastrointestinal: Soft, nondistended. Positive generalized abdominal tenderness. Positive bowel sounds all 4 quadrants, no guarding. Musculoskeletal: Moves all extremities, no calf tenderness, no edema appreciated. Central nervous system: Awake and alert. Hallucinating. Dermatologic: Skin warm and dry, positive healing wounds on right thigh. Positive well healed scar on back. Assessment and plan: Patient is a 37 year old male with past medical history that is significant for cervical radiculopathy with herniated disc, cervical spondylosis with myelopathy, thoracic spondylosis, and depression that presented to the emergency room with visual hallucinations. 1. Acute delirium. Likely secondary to chronic pain medication use. DIRECTOR BUSINESS DEVELOPMENT checked. Patient regularly uses oxycodone and methadone. Rule out infection. UA negative. Will check blood cultures and chest xray. Drug screen positive for opiates, methadone, and benzos. Neurology consulted, follow up recommendations. Psychiatry consulted, follow up recommendations. [place] [facility] [place] did not meet criteria for involuntary psychiatric commitment. Head CT per radiologist showed no acute intracranial pathology. Placed on ativan and haldol prn. Pain medications held for now. 2. Constipation. Will get abdominal xray. Placed on colace and miralax. Patient on chronic pain medications. Monitor for bowel movements 3. Hypokalemia. Replete potassium. Follow up repeat labs in AM. 4. Chronic pain. Patient's pain medications held for now as patient is acutely altered. Case was discussed in detail with the patient's mother at bedside regarding current diagnosis and treatment plan.
[2017-11-06 18:35] LABS: ALBUMIN 4.1 g/dL (3.0-4.8); ALT/SGPT 22 U/L (7-56); AST/SGOT 24 U/L (17-59); BLOOD UREA NITROGEN 9 mg/dL (7-21); CALCIUM 9.7 mg/dL (8.4-10.5); GFR NON-AFRICAN AMERICAN > 60
[2017-11-06] MEDS: POLYETHYLENE GLYCOL 3350 17 GM/Dose PACKET PO SCH (19:11)
--- NOTE | 2017-11-07 05:33 | CARD ---
APPROVED REPORT Date of service: 11/05/2017 EKG Measurement Heart [id number] <Conclusion> Sinus tachycardia RSR' or QR pattern in V1 suggests right ventricular conduction delay ST & T wave abnormality, consider anterior ischemia Abnormal ECG
[2017-11-07 07:22] LABS: HEMOGLOBIN 12.9 g/dL (14.0-18.0); MEAN CELL VOLUME 84.6 fl (80.0-105.0); MEAN CORPUSCULAR HEMOGLOBIN 27.5 pg (25.0-35.0); MEAN CORPUSCULAR HGB CONC 32.5 g/dl (31.0-37.0); MEAN PLATELET VOLUME 9.3 fl (7.0-11.0); RBC 4.69 10^6/uL (3.5-6.1); RED CELL DISTRIBUTION WIDTH 13.9 % (11.5-14.5); WHITE BLOOD COUNT 6.6 10^3/ul (4.5-11.0)
[2017-11-07 07:51] LABS: ALBUMIN 4.3 g/dL (3.0-4.8); ALT/SGPT 20 U/L (7-56); AST/SGOT 25 U/L (17-59); BLOOD UREA NITROGEN 8 mg/dL (7-21); CALCIUM 9.9 mg/dL (8.4-10.5); GFR NON-AFRICAN AMERICAN > 60
[2017-11-07 07:53] LABS: FREE T4 2.66 ng/dL (0.78-2.19)
[2017-11-07] MEDS: POLYETHYLENE GLYCOL 3350 17 GM/Dose PACKET PO SCH ×2 (09:34→17:16)
[2017-11-07] MEDS: Nystatin 100,000 Units/gm Topical Pow(15 gm) TOP SCH ×2 (11:00→17:13)
--- NOTE | 2017-11-07 16:07 | CP.PCM.PN ---
<RubinVeronica eldridgebrett - Last Filed: 11/07/17 15:57> Subjective - Date & Time of Evaluation Date of Evaluation: 11/07/17 Time of Evaluation: 15:57 - Subjective Subjective: Scott Cedeno, PGY-1 Progress Note for Hospitalist Service Patient seen and examined at bedside this morning. No acute events overnight. Currently receiving 1:1 sitter. Continues to be altered and does not respond to questioning appropriately. Offers no new complaints at this time. Objective - Vital Signs/Intake and Output Vital Signs (last 24 hours): Temp Pulse Resp BP Pulse Ox 97.7 F 119 H 18 176/116 H 97 11/07/17 15:31 11/07/17 15:31 11/07/17 15:31 11/07/17 15:31 11/07/17 15:31 - Medications Medications: Current Medications Docusate Sodium (Colace) 100 mg PO BID [facility] Last Admin: 11/07/17 09:34 Dose: 100 mg Famotidine (Pepcid) 20 mg PO 1000 [facility] Last Admin: 11/07/17 09:34 Dose: 20 mg Haloperidol Lactate (Haldol) 4 mg IM Q6 PRN; Protocol PRN Reason: Agitation Lorazepam (Ativan) 1 mg PO Q8 [facility] PRN Reason: Protocol Last Admin: 11/07/17 14:34 Dose: 1 mg Lorazepam (Ativan) 1 mg PO Q6H PRN; Protocol PRN Reason: Agitation Nystatin (Nystop Topical Powder) 0 gm TOP BID [facility] Ondansetron HCl (Zofran Inj) 4 mg IVP Q4H PRN PRN Reason: Nausea/Vomiting Polyethylene Glycol (Miralax) 17 gm PO BID [facility] Last Admin: 11/07/17 09:34 Dose: 17 gm Quetiapine Fumarate (Seroquel) 25 mg PO BID [facility] PRN Reason: Protocol Quetiapine Fumarate (Seroquel) 50 mg PO HS [facility] PRN Reason: Protocol - Labs Labs: 11/07/17 06:30 11/07/17 06:30 - Constitutional Appears: No Acute Distress - Head Exam Head Exam: ATRAUMATIC, NORMOCEPHALIC - Eye Exam Eye Exam: EOMI Pupil Exam: PERRL - Respiratory Exam Respiratory Exam: Clear to Ausculation Bilateral. absent: Respiratory Distress - Cardiovascular Exam Cardiovascular Exam: REGULAR RHYTHM, +S1, +S2 - GI/Abdominal Exam GI & Abdominal Exam: Normal Bowel Sounds. absent: Guarding, Rigid - Extremities Exam Extremities Exam: Normal Inspection. absent: Calf Tenderness - Back Exam Additional comments: surgical midline cervical/thoracic scar noted on back - Neurological Exam Neurological Exam: Alert, Altered, Awake. absent: Oriented x3 - Skin Skin Exam: Normal Color, Warm Assessment and Plan - Assessment and Plan (Free Text) Assessment: 37 year old male with a PMH of cervical radiculopathy w/ herniated disc, cervical spondylosis w/ myelopathy, thoracic spondylosis and depression under hospital management for acute delirium. Currently suspect delirium 2/2 to chronic opiate usage. Will monitor for mental changes. Agitation improved from yesterday but continues to be altered. Currently on 1:1 sitter. Plan: Acute delerium -consider opiate etiology. Chronic back pain with multiple cervical/thoracic laminectomies with long chain beamer opiate use -R/O infectious vs metabolic -WBC WNL and electrolytes WNL at this time -Elevated T4 with decreased TSH; suspect hyperthyroidism. Not previously diagnosed -drug screen in ED was positive for opiates, methadone and benzos; meds are confirmed as being prescribed -holding home pain meds to avoid further worsening of delirium -moderate fall risk precautions -blood and urine cultures pending -bladder scan pending -Head CT on 11/06: no acute intracranial pathology -CXR pending final read -on seroquel, ativan -haloperidol prn -PT eval -Neurology on consult, Dr. Pretty -Psych on consult, Dr. Lynne Constipation -abdominal xray ordered to rule out obstruction; pending final read -continue coalce and miralax -patient altered, does not admit to abdominal pain at this time -last bowel movement on 11/06 at 18:05 -regular diet Hypokalemia -repleted on 11/06 -3.8 today WNL PPX with SCD and pepcid Patient seen and discussed with attending, Dr. Greer <Jomar Greer - Last Filed: 11/08/17 07:37> Objective - Vital Signs/Intake and Output Vital Signs (last 24 hours): Temp Pulse Resp BP Pulse Ox 98.3 F 97 H 20 164/113 H 97 11/08/17 06:00 11/08/17 06:00 11/08/17 06:00 11/08/17 06:00 11/08/17 06:00 - Medications Medications: Current Medications Docusate Sodium (Colace Liquid) 100 mg PO TID [facility] Famotidine (Pepcid) 20 mg PO 1000 [facility] Last Admin: 11/07/17 09:34 Dose: 20 mg Haloperidol Lactate (Haldol) 4 mg IM Q6 PRN; Protocol PRN Reason: Agitation Lorazepam (Ativan) 1 mg PO Q8 [facility] PRN Reason: Protocol Last Admin: 11/08/17 05:34 Dose: 1 mg Lorazepam (Ativan) 1 mg PO Q6H PRN; Protocol PRN Reason: Agitation Nystatin (Nystop Topical Powder) 0 gm TOP BID [facility] Last Admin: 11/07/17 17:13 Dose: 1 applic Ondansetron HCl (Zofran Inj) 4 mg IVP Q4H PRN PRN Reason: Nausea/Vomiting Polyethylene Glycol (Miralax) 17 gm PO BID [facility] Last Admin: 11/07/17 17:16 Dose: 17 gm Propranolol HCl (Inderal) 10 mg PO TID [facility] Quetiapine Fumarate (Seroquel) 25 mg PO BID [facility] PRN Reason: Protocol Last Admin: 11/07/17 17:11 Dose: 25 mg Quetiapine Fumarate (Seroquel) 50 mg PO HS [facility] PRN Reason: Protocol Last Admin: 11/07/17 21:47 Dose: 50 mg - Labs Labs: 11/07/17 06:30 11/07/17 06:30 Attending/Attestation - Attestation I have personally seen and examined this patient.: Yes I have fully participated in the care of the patient.: Yes I have reviewed all pertinent clinical information, including history, physical exam and plan: Yes Notes (Text): 11/08/17 07:23 Attending note; Patient seen and examined with resident. Patient is alert and awake. Not able to answer questions. Patient talks incoherently at times. Not able to get any history. One-to-one by the bedside. Not in any acute distress. Had breakfast this morning. No nausea or vomiting noted. Moving his upper extremities well. Patient is a 37 year old male with past medical history that is significant for cervical radiculopathy with herniated disc, cervical spondylosis with myelopathy , thoracic spondylosis, and depression/anxiety presented to the emergency room with visual hallucinations. 1. Acute delirium. Polypharmacy Likely secondary to chronic pain medication use. FIBERGLASS CONTAINER WINDING OPERATOR checked. Patient regularly uses oxycodone and methadone. Most likely mental status changes secondary to polypharmacy and psychiatric issues. Infectious cause is less likely. UA negative. Will check blood cultures. Chest x-ray preliminarily did not show any acute infiltrate. Drug screen positive for opiates, methadone, and benzos. Neurology evaluation requested.Head CT per radiologist showed no acute intracranial pathology. Psychiatry evaluation appreciated. Started on Ativan and Haldol. [place] [facility] [place] and did not meet criteria for involuntary psychiatric commitment. 2. Constipation. Placed on colace and miralax. Mostly secondary to chronic pain medications. Monitor for bowel movements. Patient is tolerating diet. No nausea or vomiting noted. 3. mild hyperthyroidism; will start propranolol. case discussed with psychiatrist in detail. Continue one-to-one. Patient needs close psychiatric follow-up as outpatient. Upon discharge patient will follow up with PMD .
--- NOTE | 2017-11-07 17:09 | CP.PCM.CON ---
History of Present Illness - History of Present Illness History of Present Illness: Neurology Consultation Note: Mr. Haro is a 37-year-old man with a past medical history of cervical radiculopathy w/ herniated disc, cervical spondylosis w/ myelopathy, thoracic spondylosis and depression, who is on multiple opiates and benzos, and was brought in to the ED accompanied with his mother for a 2 week intermittent period of agitation, visual hallucinations, screaming, and "acting weird." Urine toxicology was positive for methadone, opiates and benzos. Neurology was consulted for altered mental status. CT scan of the head did not show any concerning findings. Review of Systems - Review of Systems All systems: reviewed and no additional remarkable complaints except Past Patient History - Tetanus Immunizations Tetanus Immunization: Unknown - Past Medical History & Family History Past Medical History?: Yes - Past Social History Smoking Status: Never Smoked - CARDIAC Hx Cardiac Disorders: No - PULMONARY Hx Respiratory Disorders: No - NEUROLOGICAL Hx Neurological Disorder: Yes (cervical and thoracic radiculopathy) - HEENT Hx HEENT Problems: No - RENAL Hx Chronic Kidney Disease: No - ENDOCRINE/METABOLIC Hx Endocrine Disorders: No - HEMATOLOGICAL/ONCOLOGICAL Hx Blood Disorders: No - INTEGUMENTARY Hx Dermatological Problems: No - MUSCULOSKELETAL/RHEUMATOLOGICAL Hx Falls: No - GASTROINTESTINAL Hx Gastrointestinal Disorders: No Hx Gastroesophageal Reflux: Yes Other/Comment: ACID REFLUX - GENITOURINARY/GYNECOLOGICAL Hx Genitourinary Disorders: No - PSYCHIATRIC Hx Psychophysiologic Disorder: Yes Hx Depression: Yes Hx Substance Use: No - SURGICAL HISTORY Hx Orthopedic Surgery: Yes (3 orthopedic sxs noted in HPI) - ANESTHESIA Hx Anesthesia: Yes Meds Allergies/Adverse Reactions: Allergies Allergy/AdvReac Type Severity Reaction Status Date / Time erythromycin base Allergy ITCHING Verified 11/05/17 23:35 duloxetine HCl AdvReac RASH Verified 11/05/17 23:35 [From Cymbalta] - Medications Medications: Current Medications Docusate Sodium (Colace) 100 mg PO BID [facility] Last Admin: 11/07/17 09:34 Dose: 100 mg Famotidine (Pepcid) 20 mg PO 1000 [facility] Last Admin: 11/07/17 09:34 Dose: 20 mg Haloperidol Lactate (Haldol) 4 mg IM Q6 PRN; Protocol PRN Reason: Agitation Lorazepam (Ativan) 1 mg PO Q8 [facility] PRN Reason: Protocol Last Admin: 11/07/17 14:34 Dose: 1 mg Lorazepam (Ativan) 1 mg PO Q6H PRN; Protocol PRN Reason: Agitation Nystatin (Nystop Topical Powder) 0 gm TOP BID [facility] Ondansetron HCl (Zofran Inj) 4 mg IVP Q4H PRN PRN Reason: Nausea/Vomiting Polyethylene Glycol (Miralax) 17 gm PO BID [facility] Last Admin: 11/07/17 09:34 Dose: 17 gm Quetiapine Fumarate (Seroquel) 25 mg PO BID [facility] PRN Reason: Protocol Quetiapine Fumarate (Seroquel) 50 mg PO HS [facility] PRN Reason: Protocol Physical Exam - Neurological Exam Neurological exam: Alert, Altered, CN II-XII Intact, Normal Gait, Reflexes Normal Additional comments: No focal weakness or sensory changes. Confused, but follows commands intermittently. Results - Vital Signs Recent Vital Signs: Last Vital Signs Temp 97.7 F 11/07/17 15:31 Pulse 119 H 11/07/17 15:31 Resp 18 11/07/17 15:31 BP 176/116 H 11/07/17 15:31 Pulse Ox 97 11/07/17 15:31 - Labs Result Diagrams: 11/07/17 06:30 11/07/17 06:30 Labs: Laboratory Results - last 24 hr 11/06/17 11/06/17 11/07/17 18:03 18:03 06:30 WBC 6.6 RBC 4.69 Hgb 12.9 L Hct 39.7 L MCV 84.6 MCH 27.5 MCHC 32.5 RDW 13.9 Plt Count 247 MPV 9.3 Sodium 141 Potassium 3.3 L Chloride 95 L Carbon Dioxide 32 Anion Gap 17 BUN 9 Creatinine 0.6 L Est GFR ( Amer) > 60 Est GFR (Non-Af Amer) > 60 Random Glucose 98 Calcium 9.7 Phosphorus 4.1 Magnesium 2.0 Total Bilirubin 0.4 AST 24 ALT 22 Alkaline Phosphatase 58 Total Protein 8.1 Albumin 4.1 Globulin 4.0 Albumin/Globulin Ratio 1.0 L Free T4 TSH 3rd Generation 0.42 L 11/07/17 11/07/17 06:30 06:30 WBC RBC Hgb Hct MCV MCH MCHC RDW Plt Count MPV Sodium 145 Potassium 3.8 Chloride 99 Carbon Dioxide 29 Anion Gap 21 H BUN 8 Creatinine 0.6 L Est GFR ( Amer) > 60 Est GFR (Non-Af Amer) > 60 Random Glucose 95 Calcium 9.9 Phosphorus 4.1 Magnesium 2.1 Total Bilirubin 0.6 AST 25 ALT 20 Alkaline Phosphatase 59 Total Protein 8.5 H Albumin 4.3 Globulin 4.3 Albumin/Globulin Ratio 1.0 L Free T4 2.66 H TSH 3rd Generation 0.45 L Assessment & Plan (1) Toxic metabolic encephalopathy Assessment and Plan: Likely due to polypharmacy and combination of opiates and benzos which have a long half life. Pain management consultation is recommended as is psychiatric evaluation. Since the symptoms have been ongoing for several weeks and CT scan of the head is normal. The underlying cause is unlikely to be intracranial. Meningoencephalitis is also unlikely when there is no white count or fever. Status: Acute
--- NOTE | 2017-11-07 22:42 | CON ---
Copied To: Petey Lynne MD Attending MD: Petey Lynne MD DATE: 11/07/2017 HISTORY OF PRESENT ILLNESS: Patient is an [place]- 37-year-old male with a recent psychiatric history of depression and anxiety, no psychiatric hospitalizations or suicide attempts, who is brought in by his mother, Enma Haro, to the ER on Tuesday morning, as patient has become increasingly disorganized and bizarre over the past 2 to 3 weeks. I have to refer to ER report as well as inpatient H and P, as patient is a very poor historian due to his disorganized thought process. First it is worth noting that patient is prescribed opiates by his pain management doctor who is Dr. Barney Lopez, phone #[phone]. Review of [facility] indicates that patient was prescribed on 11/01/2017 oxycodone 30 mg tablets of quantity of 60 tablets as was methadone 10 mg tablets of quantity of 120 tablets. This is supposed to be a 15-day supply. Patient was given the supply just 14 days prior on 10/18/2017 as well as 10/04/2017. Patient was also filled a prescription by Dr. Chavez for Adderall 20 mg b.i.d. and Valium 10 mg b.i.d. He was given 60 tablets of each medications at that time and also started on Wellbutrin. Patient's mother in the ER indicated that patient has been increasingly disorganized, delusional, and bizarre since Adderall, valium and Wellbutrin were started for him by Dr. Chavez on 10/04/2017. Though this occurred approximately once a month ago. Patient's mother had taken away patient's prescriptions by Dr. Chavez, as she felt that they had contributed to his disorganization. Nonetheless, patient was still illogical and nonsensical intermittently in the weeks following. Notes indicate that patient would intermittently be nonsensical and irrelevant; however, would return back to normal and coherent. Mother felt alarmed however on Tuesday, as patient was actively hallucinating with tactile visual auditory hallucinations during my assessing him, and was generally incoherent thereafter. She was brought into the ER to be evaluated. It is worth noting that the patient's UDS was only positive for benzodiazepines, opiates, and methadone. It is also worth noting that patient's mother indicated that she took away patient's prescription provided by Dr. Chavez. Hence, his UDS should not have been positive for benzos, unless they were given in the ER prior to obtaining UDS. I interviewed patient at bedside in the ER as well as on the medical floor and he continues to appear completely psychotic, hallucinating, mildly agitated and illogical with very acute periods of incoherency. [facility] was called for screening; however, did not accept patient in the ER for involuntary transfer because patient was considered to be medical in nature. Patient still cannot have a productive interview with this provider. He does not know where he is. He does not know the current month of the year. He can answer few questions regarding his history; however, he is a very poor historian and requires continued monitoring until the etiology of the current symptoms can be determined. PSYCHIATRIC HISTORY: Patient recently followed up with Dr. Chavez on 09/22/2017 and was prescribed Adderall 20 mg p.o. b.i.d. and Valium 10 mg p.o. b.i.d. as well as Wellbutrin. These medications were filled on 09/24/2017. Patient has no history of suicide attempts; however, patient did indicate to his mother that he wanted to kill himself and asked for a gun because of suicidal thoughts prior to meeting with Dr. Chavez. Patient initially wanted to see Dr. Chavez because of depression secondary to neck pain and nonstop headaches. Family at that time had removed the gun from patient's possession, and patient no longer has access to it. SOCIAL HISTORY: Patient indicates that he is not . He has no children. He used to work. He also indicated that he graduated high school and college; however, he could not tell me which college he went to. He started rambling nonsensically, could not tell me what his major is, but rambling nonsensically. Patient indicates that he lives with his mother. Throughout the course of our conversation, patient was actively hallucinating, changes thoughts, feeling people burning him, etc. etc. Off note, patient has been provided with methadone 10 mg tablets 120 of these tablets to be taken in the course of 15 days and oxycodone 30 mg tablets of quantity of 60 of these tablets to be taken in 15 days by his pain management doctor, Dr. Lopez. CURRENT MEDICATIONS: Include Haldol 4 mg IM every 6 p.r.n., and 2 mg IV every 4 p.r.n. and 1 mg IV every 6 p.r.n. IMPRESSION: Delirium, unknown etiology. Patient clearly is dealing with polypharmacy here and further to other process going on, which might be contributing to delirium, and medicine will have to work that up. Major depressive disorder by history, anxiety disorder by history. RECOMMENDATIONS: 1. I will continue Haldol and Ativan p.r.n. 2. I will also put Seroquel standing to help with patient's hallucinations and agitation and lability on the unit, as well as disorganization. 3. Psychiatry will continue to follow the patient daily. Patient will be next seen by Dr. Issa on 11/08/2017. Lastly, it is worth noting that although mother indicated that patient has seen Dr. Chavez for depression and was prescribed Adderall, Wellbutrin and Valium recently, which she felt contributed to his psychosis, it is worth noting that the patient has been prescribed Ritalin by Dr. Chavez since at least 03/2017, and Adderall since 05/2017, Valium as well, and patient clearly has been on a combination of amphetamines, benzos and high doses of opiates at least in the last 6 months. Petey Lynne MD
[2017-11-08 07:26] LABS: MEAN CELL VOLUME 85.2 fl (80.0-105.0); MEAN CORPUSCULAR HEMOGLOBIN 28.3 pg (25.0-35.0); MEAN CORPUSCULAR HGB CONC 33.2 g/dl (31.0-37.0); MEAN PLATELET VOLUME 9.3 fl (7.0-11.0); RBC 4.59 10^6/uL (3.5-6.1); WHITE BLOOD COUNT 9.9 10^3/ul (4.5-11.0)
[2017-11-08 07:59] LABS: ALB/GLOB RATIO 1.1 (1.1-1.8); ALBUMIN 4.2 g/dL (3.0-4.8); ALT/SGPT 23 U/L (7-56); AST/SGOT 19 U/L (17-59); BLOOD UREA NITROGEN 10 mg/dL (7-21); CALCIUM 9.6 mg/dL (8.4-10.5); GFR NON-AFRICAN AMERICAN > 60
--- NOTE | 2017-11-08 09:11 | CP.PCM.PN ---
<Mercedes Dubon - Last Filed: 11/08/17 14:41> Subjective - Date & Time of Evaluation Date of Evaluation: 11/08/17 Time of Evaluation: 10:30 - Subjective Subjective: PGY-1 Mercedes Dubon D.O. Neurology progress note for Dr. Pretty's service: Patient is seen and examined this morning. He is sleeping and able to be aroused. He is oriented x2 (not to place, states we're in a club). He is able to follow simple commands. He frequently needs to be asked questions more than once before providing an answer. No gross motor deficits noted. He is complaining of neck and back pain, which is chronic. He denies MINOR. Patient is re-examined this afternoon. He is more awake and readily answers questions and follows commands. He is alert and now oriented x3. Objective - Vital Signs/Intake and Output Vital Signs (last 24 hours): Temp Pulse Resp BP Pulse Ox 98.3 F 97 H 20 164/113 H 97 11/08/17 08:28 11/08/17 08:28 11/08/17 08:28 11/08/17 08:28 11/08/17 08:28 - Medications Medications: Current Medications Docusate Sodium (Colace Liquid) 100 mg PO TID [facility] Famotidine (Pepcid) 20 mg PO 1000 [facility] Last Admin: 11/07/17 09:34 Dose: 20 mg Haloperidol Lactate (Haldol) 4 mg IM Q6 PRN; Protocol PRN Reason: Agitation Potassium Chloride (Potassium Chloride 10 Meq/100 Ml) 10 meq in 100 mls @ 50 mls/hr IVPB ONCE ONE Stop: 11/08/17 10:28 Lorazepam (Ativan) 1 mg PO Q8 [facility] PRN Reason: Protocol Last Admin: 11/08/17 05:34 Dose: 1 mg Lorazepam (Ativan) 1 mg PO Q6H PRN; Protocol PRN Reason: Agitation Nystatin (Nystop Topical Powder) 0 gm TOP BID [facility] Last Admin: 11/07/17 17:13 Dose: 1 applic Ondansetron HCl (Zofran Inj) 4 mg IVP Q4H PRN PRN Reason: Nausea/Vomiting Polyethylene Glycol (Miralax) 17 gm PO BID [facility] Last Admin: 11/07/17 17:16 Dose: 17 gm Propranolol HCl (Inderal) 10 mg PO TID [facility] Quetiapine Fumarate (Seroquel) 25 mg PO BID [facility] PRN Reason: Protocol Last Admin: 11/07/17 17:11 Dose: 25 mg Quetiapine Fumarate (Seroquel) 50 mg PO HS [facility] PRN Reason: Protocol Last Admin: 11/07/17 21:47 Dose: 50 mg - Labs Labs: 11/08/17 07:00 11/08/17 07:00 - Constitutional Appears: Non-toxic, No Acute Distress - Head Exam Head Exam: ATRAUMATIC, NORMAL INSPECTION, NORMOCEPHALIC - Eye Exam Eye Exam: EOMI, Normal appearance, PERRL - ENT Exam ENT Exam: Mucous Membranes Moist, Normal Exam - Neck Exam Neck Exam: Normal Inspection - Respiratory Exam Respiratory Exam: NORMAL BREATHING PATTERN - Cardiovascular Exam Cardiovascular Exam: REGULAR RHYTHM, +S1, +S2 - Rectal Exam Rectal Exam: Deferred - Extremities Exam Extremities Exam: Normal Inspection - Neurological Exam Neurological Exam: Alert, Awake, CN II-XII Intact, Oriented x3 Neuro motor strength exam: Left Upper Extremity: 5, Right Upper Extremity: 5, Left Lower Extremity: 5, Right Lower Extremity: 5 Additional comments: mental status improving - Psychiatric Exam Psychiatric exam: Flat Affect - Skin Skin Exam: Dry, Normal Color, Warm Assessment and Plan - Assessment and Plan (Free Text) Assessment: Patient is a 37 yo male with a history of depression and multiple back surgeries who was brought in by his mother for agitation and reported visual hallucinations. Patient is reportedly taking oxycodone, Vicodin, methadone, Fioricet, and Valium, which were all positive in UDS. Also recently discontinued Adderall and Wellbutrin. CT head negative for acute pathology. Suspect symptoms due to polypharmacy and/or psychiatric disorder. Plan: AMS, improving-suspect 2/2 polypharmacy and/or psychiatric disorder ( schizophrenia spectrum, drug-induced psychosis, etc.), patient improving with discontinuation of multiple drugs - 1:1 observation and fall precautions - CT head: no acute pathology - UDS positive for benzo, opiates, methadone (pt reported has Rx for all 3) - BAL <10 - UA negative - TSH 0.45 and T4 2.66- recommend correcting hyperthyroidism - Correct electrolyte abnormalities as needed - Recommend discontinuation of unnecessary drugs, especailly psychotropic agents (ie. stimulants, benzos, opiates) - Currently on Ativan 1 mg PO TID, Seroquel 25 mg PO BID and 50 mg PO QHS, propranolol 10 mg PO TID - Haldol and Ativan PRN for agitation - Recommend psychiatry and pain management consults Case discussed with attending, Dr. Pretty. <Emir Pretty - Last Filed: 11/19/17 13:29> Objective - Vital Signs/Intake and Output Vital Signs (last 24 hours): Temp Pulse Resp BP Pulse Ox 99.4 F 100 H 20 140/92 H 98 11/19/17 06:00 11/19/17 09:18 11/19/17 06:00 11/19/17 09:19 11/19/17 06:00 Intake and Output: 11/19/17 11/19/17 06:59 18:59 Intake Total 240 Output Total 1100 Balance -860 - Medications Medications: Current Medications Acetaminophen (Tylenol 325mg Tab) 650 mg PO Q4H PRN PRN Reason: Fever >100.4 F Last Admin: 11/19/17 04:58 Dose: 650 mg Amlodipine Besylate (Norvasc) 10 mg PO DAILY [facility] Last Admin: 11/19/17 09:19 Dose: 10 mg Docusate Sodium (Colace Liquid) 100 mg PO TID [facility] Last Admin: 11/19/17 09:17 Dose: 100 mg Doxycycline Hyclate (Doryx) 100 mg PO Q12 [facility] PRN Reason: Protocol Stop: 11/24/17 22:01 Last Admin: 11/19/17 09:19 Dose: 100 mg Enoxaparin Sodium (Lovenox) 40 mg SC DAILY [facility] PRN Reason: Protocol Last Admin: 11/19/17 09:18 Dose: 40 mg Famotidine (Pepcid) 20 mg PO 1000 [facility] Last Admin: 11/19/17 09:19 Dose: 20 mg Haloperidol Lactate (Haldol) 4 mg IM Q6 PRN; Protocol PRN Reason: Agitation Meropenem (Merrem Iv 1 Gm Premix) 50 mls @ 100 mls/hr IVPB Q8 [facility] PRN Reason: Protocol Stop: 11/24/17 22:01 Last Admin: 11/19/17 04:59 Dose: 100 mls/hr Vancomycin HCl (Vancomycin 1gm) 1 gm in 250 mls @ 167 mls/hr IVPB Q12H [facility] PRN Reason: Protocol Stop: 11/24/17 20:31 Last Admin: 11/19/17 09:17 Dose: 167 mls/hr Acyclovir 750 mg/ Sodium (Chloride) 100 mls @ 100 mls/hr IV Q8 [facility] PRN Reason: Protocol Stop: 11/24/17 22:01 Last Admin: 11/19/17 08:04 Dose: 100 mls/hr Sodium Chloride (Sodium Chloride 0.9%) 1,000 mls @ 100 mls/hr IV .Q10H [facility] Stop: 11/20/17 07:59 Ibuprofen (Motrin Tab) 400 mg PO Q6H PRN PRN Reason: Pain, moderate (4-7) Last Admin: 11/19/17 04:58 Dose: 400 mg Lisinopril (Zestril) 20 mg PO BID [facility] Last Admin: 11/19/17 09:19 Dose: 20 mg Lorazepam (Ativan) 1 mg PO Q6H PRN; Protocol PRN Reason: Agitation Last Admin: 11/12/17 18:13 Dose: 1 mg Lorazepam (Ativan) 1 mg PO Q12 [facility] PRN Reason: Protocol Last Admin: 11/19/17 09:19 Dose: 1 mg Methimazole (Tapazole) 10 mg PO TID [facility] Last Admin: 11/19/17 09:17 Dose: 10 mg Nystatin (Nystop Topical Powder) 0 gm TOP BID [facility] Last Admin: 11/19/17 09:20 Dose: 1 applic Ondansetron HCl (Zofran Inj) 4 mg IVP Q4H PRN PRN Reason: Nausea/Vomiting Last Admin: 11/18/17 20:08 Dose: 4 mg Oxycodone HCl (Oxycodone Immediate Release Tab) 30 mg PO Q6 [facility] Last Admin: 11/19/17 09:18 Dose: 30 mg Polyethylene Glycol (Miralax) 17 gm PO BID PRN PRN Reason: Constipation Last Admin: 11/18/17 11:59 Dose: 17 gm Propranolol HCl (Inderal) 10 mg PO TID [facility] Last Admin: 11/19/17 09:18 Dose: 10 mg Quetiapine Fumarate (Seroquel) 12.5 mg PO [facility] PRN; Protocol PRN Reason: disorganized thoughts/psychosi - Labs Labs: 11/19/17 07:00 11/19/17 07:00 Assessment and Plan (1) Toxic metabolic encephalopathy Status: Acute Attending/Attestation - Attestation I have personally seen and examined this patient.: Yes I have fully participated in the care of the patient.: Yes I have reviewed all pertinent clinical information, including history, physical exam and plan: Yes Notes (Text): 11/19/17 13:28 On my exam, the patient's neurological and mental status are improved. I agree with the remaining assessment and plan.
[2017-11-08] MEDS: POLYETHYLENE GLYCOL 3350 17 GM/Dose PACKET PO SCH ×2 (11:15→18:09)
--- NOTE | 2017-11-08 12:59 | RAD ---
Date of service: 11/07/2017 PROCEDURE: CHEST RADIOGRAPH, 1 VIEW HISTORY: r/o pneumonia COMPARISON: None available FINDINGS: LUNGS: Clear. PLEURA: No pneumothorax or pleural fluid seen. CARDIOVASCULAR: Normal. OSSEOUS STRUCTURES: No significant abnormalities. VISUALIZED UPPER ABDOMEN: Normal. OTHER FINDINGS: None. IMPRESSION: No active disease.
--- NOTE | 2017-11-08 13:05 | RAD ---
Date of service: 11/07/2017 HISTORY: constipation, r/o obstruction COMPARISON: No prior. FINDINGS: BOWEL: No evidence of bowel obstruction. There is moderate retained feces in the descending and rectosigmoid colon. Possible constipation. The no other abnormal bowel loops are identified. No masses or abnormal calcifications. No hepatic or splenic enlargement. BONES: Normal. OTHER FINDINGS: None. IMPRESSION: Mild retained feces. Otherwise unremarkable.
--- NOTE | 2017-11-08 16:10 | CP.PCM.PN ---
<Scott Cedeno - Last Filed: 11/08/17 16:07> Subjective - Date & Time of Evaluation Date of Evaluation: 11/08/17 Time of Evaluation: 16:07 - Subjective Subjective: Scott Cedeno, PGY-1 Progress Note for Hospitalist Service Patient seen and examined at bedside this morning. No acute events reported overnight. Patient continues to be altered upon examination but appears less agitated today. Offers no new complaints at this time. Objective - Vital Signs/Intake and Output Vital Signs (last 24 hours): Temp Pulse Resp BP Pulse Ox 99 F 82 18 161/115 H 98 11/08/17 14:00 11/08/17 14:35 11/08/17 14:00 11/08/17 14:35 11/08/17 14:00 - Medications Medications: Current Medications Docusate Sodium (Colace Liquid) 100 mg PO TID [facility] Last Admin: 11/08/17 14:38 Dose: Not Given Famotidine (Pepcid) 20 mg PO 1000 [facility] Last Admin: 11/08/17 11:14 Dose: 20 mg Haloperidol Lactate (Haldol) 4 mg IM Q6 PRN; Protocol PRN Reason: Agitation Lisinopril (Zestril) 5 mg PO DAILY [facility] Lorazepam (Ativan) 1 mg PO Q8 [facility] PRN Reason: Protocol Last Admin: 11/08/17 14:39 Dose: Not Given Lorazepam (Ativan) 1 mg PO Q6H PRN; Protocol PRN Reason: Agitation Nystatin (Nystop Topical Powder) 0 gm TOP BID [facility] Last Admin: 11/07/17 17:13 Dose: 1 applic Ondansetron HCl (Zofran Inj) 4 mg IVP Q4H PRN PRN Reason: Nausea/Vomiting Polyethylene Glycol (Miralax) 17 gm PO BID [facility] Last Admin: 11/08/17 11:15 Dose: 17 gm Propranolol HCl (Inderal) 10 mg PO TID [facility] Last Admin: 11/08/17 14:35 Dose: 10 mg Quetiapine Fumarate (Seroquel) 25 mg PO BID [facility] PRN Reason: Protocol Last Admin: 11/08/17 11:14 Dose: Not Given Quetiapine Fumarate (Seroquel) 50 mg PO HS [facility] PRN Reason: Protocol Last Admin: 11/07/17 21:47 Dose: 50 mg - Labs Labs: 11/08/17 07:00 11/08/17 07:00 - Constitutional Appears: No Acute Distress - Head Exam Head Exam: ATRAUMATIC, NORMAL INSPECTION - Eye Exam Eye Exam: EOMI Pupil Exam: PERRL - Respiratory Exam Respiratory Exam: Clear to Ausculation Bilateral. absent: Respiratory Distress - Cardiovascular Exam Cardiovascular Exam: REGULAR RHYTHM, +S1, +S2 - GI/Abdominal Exam GI & Abdominal Exam: Normal Bowel Sounds. absent: Firm, Guarding - Extremities Exam Extremities Exam: Normal Inspection. absent: Calf Tenderness - Back Exam Additional comments: surgical midline cervical/thoracic scar noted on back - Neurological Exam Neurological Exam: Alert, Altered. absent: Oriented x3 - Skin Skin Exam: Normal Color, Warm Assessment and Plan - Assessment and Plan (Free Text) Assessment: 37 year old male with a PMH of cervical radiculopathy w/ herniated disc, cervical spondylosis w/ myelopathy, thoracic spondylosis and depression under hospital management for acute delirium. Currently suspect delirium 2/2 to chronic opiate usage. Patient's behavioral status is improving; is alert to person and year. Currently on 1:1 sitter. Patient seen previously by Dr. Rosa. 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 Pain consultation is recommended. Unlikely intracranial or meningoencephalitis process -per psych, continue haldol and ativan prn. Continue seroquel for agitation -history of chronic back pain with multiple cervical/thoracic laminectomies with penitentiary opiate use -unlikely infectious metabolic etiology at this time given afebrile, WBC WNL and electrolytes WNL -drug screen in ED was positive for opiates, methadone and benzos; meds are confirmed as being prescribed -holding home pain meds to avoid further worsening of delirium -moderate fall risk precautions -urine culture shows multiple species, possible contamination -blood culture negative after one day -Head CT on 11/06: no acute intracranial pathology -on seroquel, ativan prn, haloperidol prn -PT eval -1:1 sitter -Neurology on consult, Dr. Pretty -Psych on consult, Dr. Lynne Possible Hyperthyroidism -Elevated T4 with decreased TSH; suspect hyperthyroidism; not previously diagnosed -on propranolol 10mg TID -Endo on consult, Dr. Mccauley Hypertension -elevated blood pressure today, most recent of 161/115 -lisinopril 5mg -will monitor Constipation -abdominal xray shows mild retained feces -will continue coalce and miralax at this time -patient altered, denies abdominal pain -regular diet Hypokalemia -3.5 today -will monitor PPX with SCD and pepcid Patient seen and discussed with attending, Dr. Greer <Jomar Greer - Last Filed: 11/09/17 14:58> Objective - Vital Signs/Intake and Output Vital Signs (last 24 hours): Temp Pulse Resp BP Pulse Ox 98.6 F 85 20 163/121 H 96 11/09/17 06:00 11/09/17 06:22 11/09/17 06:00 11/09/17 06:22 11/09/17 06:00 Intake and Output: 11/09/17 11/09/17 06:59 18:59 Intake Total 240 Balance 240 - Medications Medications: Current Medications Docusate Sodium (Colace Liquid) 100 mg PO TID [facility] Last Admin: 11/09/17 10:43 Dose: Not Given Famotidine (Pepcid) 20 mg PO 1000 [facility] Last Admin: 11/09/17 10:45 Dose: 20 mg Haloperidol Lactate (Haldol) 4 mg IM Q6 PRN; Protocol PRN Reason: Agitation Lisinopril (Zestril) 10 mg PO DAILY [facility] Lorazepam (Ativan) 1 mg PO Q8 [facility] PRN Reason: Protocol Last Admin: 11/09/17 06:23 Dose: Not Given Lorazepam (Ativan) 1 mg PO Q6H PRN; Protocol PRN Reason: Agitation Methimazole (Tapazole) 5 mg PO BID [facility] Nystatin (Nystop Topical Powder) 0 gm TOP BID [facility] Last Admin: 11/09/17 10:45 Dose: 1 applic Ondansetron HCl (Zofran Inj) 4 mg IVP Q4H PRN PRN Reason: Nausea/Vomiting Polyethylene Glycol (Miralax) 17 gm PO BID [facility] Last Admin: 11/09/17 10:44 Dose: Not Given Propranolol HCl (Inderal) 10 mg PO TID [facility] Last Admin: 11/09/17 10:44 Dose: 10 mg Quetiapine Fumarate (Seroquel) 25 mg PO BID [facility] PRN Reason: Protocol Last Admin: 11/09/17 10:45 Dose: 25 mg Quetiapine Fumarate (Seroquel) 50 mg PO HS [facility] PRN Reason: Protocol Last Admin: 11/08/17 22:56 Dose: Not Given - Labs Labs: 11/08/17 07:00 11/09/17 06:15 Attending/Attestation - Attestation I have personally seen and examined this patient.: Yes I have fully participated in the care of the patient.: Yes I have reviewed all pertinent clinical information, including history, physical exam and plan: Yes Notes (Text): 11/09/17 14:55 Attending note; Patient seen and examined with resident. Patient is alert and awake. able to answer a few questions. the patient knows he lives in [place] with his mother. Patient is a 37 year old male with past medical history that is significant for cervical radiculopathy with herniated disc, cervical spondylosis with myelopathy , thoracic spondylosis, and depression/anxiety presented to the emergency room with confusion and hallucinations. 1. Acute delirium. Polypharmacy Likely secondary to chronic pain medication use. MACHINE PACKER checked. Patient regularly uses oxycodone and methadone. Most likely mental status changes secondary to polypharmacy and psychiatric issues. Infectious cause is less likely. UA negative. urine culture, blood culture is negative. Chest x-ray preliminarily did not show any acute infiltrate. Drug screen positive for opiates, methadone, and benzos. Neurology evaluation appreciated. Head CT is negative for acute intracranial pathology. Psychiatry evaluation appreciated. Started on Ativan and Haldol. Patient screened by [facility] in the ER and did not meet criteria for involuntary psychiatric commitment. 2. Constipation. Placed on colace and miralax.had one bowel movement today. Mostly secondary to chronic pain medications. Patient is tolerating diet. No nausea or vomiting noted. 3. mild hyperthyroidism; will start propranolol. endocrinology evaluation requested. case discussed with psychiatrist in detail. Continue one-to-one. Patient needs close psychiatric follow-up as outpatient. Upon discharge patient will follow up with PMD . 11/09/17 14:57 11/09/17 14:58
[2017-11-08] MEDS: Nystatin 100,000 Units/gm Topical Pow(15 gm) TOP SCH ×2 (16:19→17:54)
--- NOTE | 2017-11-08 20:49 | PN ---
Copied To: Taylor Issa MD Attending MD: Taylor Issa MD DATE: 11/08/2017 FOLLOWUP NOTE SUBJECTIVE: The patient was seen and examined, discussed with the medical team, Dr. Greer as well as nursing staff. Dr. Lynne's notes are reviewed as well. Shortly, the patient is a 37-year-old male with recent psychiatric history of depression and anxiety. No history of psychiatric admissions in the past. The patient obviously had polypharmacy. The patient was on painkillers including oxycodone as well as methadone. The patient was recently prescribed Adderall as well as Valium as well as Wellbutrin. Since 10/2017, the patient was progressively worsening in his mental status, was confused, disoriented as well as bizarre. Dr. Lynne has impression that the patient had delirium of unknown etiology. The patient also had polypharmacy, it might be contributing to delirium. As per history, the patient had major depressive disorder as well as anxiety disorder. This repairer typewriter attempted to speak to the patient, but the patient was falling asleep. The patient appears to be a very poor and unreliable historian due to his mental status. As per nursing report, the patient is not having any agitation or aggression, but at the same time, the patient is very lethargic. This repairer typewriter reviewed vital signs. Temperature is 98.3, pulse is 82, blood pressure is very elevated at 161/115, respirations are 20, oxygen saturation is 97. Medications are reviewed. The patient is on Colace liquid, Pepcid. The patient is on Ativan 1 mg every 8 hours as scheduled, but dose was held because of lethargy. The patient is on Inderal, MiraLax, Zofran, Seroquel 25 mg twice a day as well as 50 mg at the nighttime was initiated by Dr. Lynne, I agree with that. Labs were reviewed. Hemoglobin and hematocrit 13 and 39.1. Chemistry reviewed. Potassium 3.5, creatinine 0.7, T4 is 2.66 and TSH is 0.45. Urinalysis showed ketone trace. Toxicology showed opioids, methadone as well as benzodiazepines. Microbiology: No growth. For short interaction, this repairer typewriter attempted to ask what pharmacy the patient is filling medications, the patient opened his eyes, the patient said [facility]. This repairer typewriter Googled the name of the pharmacy, but there is no such pharmacy listed. The patient also said that [facility], but obviously, the patient is confused and this statement is very questionable. MENTAL STATUS EXAMINATION: As this repairer typewriter described above, the patient is lethargic, was able to open his eyes, but falling back asleep. A very poor and unreliable historian. As per history, the patient was confused, disoriented, and bizarre. Insight and judgment seemed to be very limited to impaired. Impulses are not predictable. IMPRESSION: I agree with Dr. Lynne, polypharmacy as well as delirium were of unknown etiology, most likely it is a combination of thyroid problems as well as polypharmacy as well as hypertension, most likely it is a combination of the multiple factors. PLAN: Continue Seroquel. Continue current medication and management. I discussed with Dr. Greer. We will follow up on this patient. If the patient meets criteria for psych admission, we will definitely do offer admission. Thank you very much for letting me participate in the care of your patient. Should you have any questions, give me a call back. Taylor Issa MD
[2017-11-09 07:30] LABS: FREE T4 2.17 ng/dL (0.78-2.19); T4 13.8 ug/dL (5.5-11.0)
[2017-11-09 07:36] LABS: ALB/GLOB RATIO 1.1 (1.1-1.8); ALBUMIN 4.3 g/dL (3.0-4.8); ALT/SGPT 25 U/L (7-56); AST/SGOT 24 U/L (17-59); BLOOD UREA NITROGEN 11 mg/dL (7-21); CALCIUM 9.7 mg/dL (8.4-10.5); GFR NON-AFRICAN AMERICAN > 60
--- NOTE | 2017-11-09 08:08 | CON ---
Copied To: Ashley Mccauley MD Attending MD: Ashley Mccauley MD DATE: 11/08/2017 ENDOCRINOLOGY CONSULT LOCATION: In room 567. HISTORY OF PRESENT ILLNESS: This is a 37-year-old male with known history of anxiety and depression and also chronic pain syndrome, on heavy dosing of narcotic analgesics on the outpatient who presented here with altered mental status and progressively worsening agitation and verbal and physical behavioral changes with visual hallucination and is being referred now for evaluation of abnormal thyroid function studies. PAST MEDICAL HISTORY: History of multiple cervical and vertebral procedures to include a prior anterior cervical diskectomy and fusion followed by another partial vertebrectomy in C6 and C7 with subsequent fusion procedures and plate insertion in the same area. She also had a subsequent thoracic laminectomy with posterolateral fusion also in 2016. She has significant history of cervical and thoracic disc herniations with cervical spondylosis with myelopathy as noted. She also has chronic anxiety and depression with underlying schizoaffective disorder. FAMILY HISTORY: Positive for hypertension and heart disease. SOCIAL HISTORY: The patient has nicotine dependence with chronic chemical dependence, on narcotic analgesics for pain relief. REVIEW OF SYSTEMS: As mentioned above. History was taken from the mother. He has had recent bouts of generalized body weakness with hypersomnolence and lethargy interspersed with agitation and behavioral changes. Also admits to occasional precordial chest pain with episodic shortness of breath. His oral intake has been variable with nausea, dyspepsia and habitual constipation. PHYSICAL EXAMINATION: GENERAL: This is an average built male in no apparent distress. VITAL SIGNS: With a blood pressure of 140/80, pulse of 70 beats per minute and regular, temperature 98, respirations 20, height is 6 feet, weight is 240 pounds. HEENT: Head is normocephalic. Eyes anicteric with pink conjunctivae. Funduscopy is not possible at this time. Ears, nose and throat otherwise normal. NECK: Supple. Thyroid gland is normal in size. No carotid bruits or cervical adenopathy. CARDIOPULMONARY: Some adynamic precordium. S1, S2 is rapid and regular. LUNGS: Clear to auscultation. ABDOMEN: Flat, soft with positive bowel sounds. EXTREMITIES: No peripheral edema. Pulses are +2 bilaterally. LABORATORY DATA: His thyroid studies showed a free T4 of 2.66 with a TSH of 0.45. Chemistries: BUN of 10, sodium 142, potassium 3.5, chloride 98, CO2 29, glucose 112 and creatinine 0.7. ASSESSMENT: This is a 37-year-old male presenting here with altered mental status, agitation and behavioral disturbances with also concomitant abnormal thyroid studies and the possibility of subclinical hyperthyroidism with superimposed acute sick euthyroid syndrome has to be excluded at this time. PLAN OF MANAGEMENT: We will obtain a comprehensive thyroid hormonal profile to include a thyroxine or total T4 level which will determine the degree of hyperthyroidism if at all present. We will obtain serial chemistries and supplement accordingly as needed. We will also obtain a thyroid stimulating immunoglobulin to confirm and/or indicate the presence of thyroid autoimmunity. We will follow and advise accordingly as needed. We will hold off thyroid pharmacotherapy pending the repeat thyroid studies to make sure we are not missing any subclinical hyperthyroxinemia as noted thereof. We will follow. Ashley Mccauley MD
--- NOTE | 2017-11-09 09:14 | CP.PCM.PN ---
Subjective - Date & Time of Evaluation Date of Evaluation: 11/09/17 Time of Evaluation: 10:45 - Subjective Subjective: PGY-1 Mercedes Dubon D.O. Neurology progress note for Dr. Levy's service: Patient is seen and examined this morning. Patient is asleep. He is easily awoken and more responsive to questioning than yesterday. He is oriented x3. He is complaining of a MINOR and being hungry and tired. He speaks with his eyes closed through most of the exam. Objective - Vital Signs/Intake and Output Vital Signs (last 24 hours): Temp Pulse Resp BP Pulse Ox 98.6 F 85 20 163/121 H 96 11/09/17 06:00 11/09/17 06:22 11/09/17 06:00 11/09/17 06:22 11/09/17 06:00 Intake and Output: 11/09/17 11/09/17 06:59 18:59 Intake Total 240 Balance 240 - Medications Medications: Current Medications Docusate Sodium (Colace Liquid) 100 mg PO TID [facility] Last Admin: 11/08/17 18:10 Dose: Not Given Famotidine (Pepcid) 20 mg PO 1000 [facility] Last Admin: 11/08/17 11:14 Dose: 20 mg Haloperidol Lactate (Haldol) 4 mg IM Q6 PRN; Protocol PRN Reason: Agitation Lisinopril (Zestril) 5 mg PO DAILY [facility] Last Admin: 11/09/17 06:22 Dose: 5 mg Lorazepam (Ativan) 1 mg PO Q8 [facility] PRN Reason: Protocol Last Admin: 11/09/17 06:23 Dose: Not Given Lorazepam (Ativan) 1 mg PO Q6H PRN; Protocol PRN Reason: Agitation Nystatin (Nystop Topical Powder) 0 gm TOP BID [facility] Last Admin: 11/08/17 17:54 Dose: 1 applic Ondansetron HCl (Zofran Inj) 4 mg IVP Q4H PRN PRN Reason: Nausea/Vomiting Polyethylene Glycol (Miralax) 17 gm PO BID [facility] Last Admin: 11/08/17 18:09 Dose: 17 gm Propranolol HCl (Inderal) 10 mg PO TID [facility] Last Admin: 11/08/17 18:09 Dose: 10 mg Quetiapine Fumarate (Seroquel) 25 mg PO BID [facility] PRN Reason: Protocol Last Admin: 11/08/17 18:10 Dose: Not Given Quetiapine Fumarate (Seroquel) 50 mg PO HS [facility] PRN Reason: Protocol Last Admin: 11/08/17 22:56 Dose: Not Given - Labs Labs: 11/08/17 07:00 11/09/17 06:15 - Constitutional Appears: Non-toxic, No Acute Distress - Head Exam Head Exam: ATRAUMATIC, NORMAL INSPECTION, NORMOCEPHALIC - Eye Exam Eye Exam: EOMI, Normal appearance - ENT Exam ENT Exam: Mucous Membranes Moist - Neck Exam Neck Exam: Normal Inspection - Respiratory Exam Respiratory Exam: NORMAL BREATHING PATTERN - Rectal Exam Rectal Exam: Deferred - Neurological Exam Neurological Exam: Alert, Awake, CN II-XII Intact, Oriented x3 Neuro motor strength exam: Left Upper Extremity: 5, Right Upper Extremity: 5, Left Lower Extremity: 5, Right Lower Extremity: 5 - Psychiatric Exam Psychiatric exam: Flat Affect - Skin Skin Exam: Dry, Normal Color, Warm Assessment and Plan - Assessment and Plan (Free Text) Assessment: Patient is a 37 yo male with a history of depression and multiple back surgeries who was brought in by his mother for agitation and reported visual hallucinations. Patient is reportedly taking oxycodone, Vicodin, methadone, Fioricet, and Valium, which were all positive in UDS. Also recently discontinued Adderall and Wellbutrin. CT head negative for acute pathology. Suspect symptoms due to polypharmacy and/or hyperthyroidism and/or psychiatric disorder. Plan: AMS, improving-suspect 2/2 polypharmacy +/- thyroid dysfunction +/- psychiatric disorder (schizophrenia spectrum, drug-induced psychosis, etc.), patient improving with discontinuation of multiple drugs - 1:1 observation and fall precautions - CT head: no acute pathology - UDS positive for benzo, opiates, methadone (pt reported has Rx for all 3) - BAL <10 - UA negative - Correct electrolyte abnormalities as needed - Recommend discontinuation of unnecessary drugs, especially psychotropic agents (ie. stimulants, benzos, opiates) - Currently on Ativan 1 mg PO TID, Seroquel 25 mg PO BID and 50 mg PO QHS, propranolol 10 mg PO TID - Haldol and Ativan PRN for agitation- not required during this admission - Psychiatry consulted- addition of Seroquel - Recommend pain management consult - PT/OT- rec FREDRICK Hyperthyroidism- not on treatment - Management per primary team and endocrinology - TSH low (0.08), thyroxine elevated (13.8) Neurology will sign off case at this time. Please re-consult if necessary. Case discussed with attending, Dr. Levy.
[2017-11-09] MEDS: POLYETHYLENE GLYCOL 3350 17 GM/Dose PACKET PO SCH ×2 (10:44→18:23)
[2017-11-09] MEDS: Nystatin 100,000 Units/gm Topical Pow(15 gm) TOP SCH ×2 (10:45→18:23)
--- NOTE | 2017-11-09 14:08 | CP.PCM.PN ---
<Scott Cedeno - Last Filed: 11/09/17 14:05> Subjective - Date & Time of Evaluation Date of Evaluation: 11/09/17 Time of Evaluation: 14:05 - Subjective Subjective: Scott Cedeno, PGY-1 Progress Note for Hospitalist Service Patient seen and examined at bedside this morning. No acute events overnight. Offers no new complaints at this time. Mentation is improved from yesterday, responds to questions. Objective - Vital Signs/Intake and Output Vital Signs (last 24 hours): Temp Pulse Resp BP Pulse Ox 98.6 F 85 20 163/121 H 96 11/09/17 06:00 11/09/17 06:22 11/09/17 06:00 11/09/17 06:22 11/09/17 06:00 Intake and Output: 11/09/17 11/09/17 06:59 18:59 Intake Total 240 Balance 240 - Medications Medications: Current Medications Docusate Sodium (Colace Liquid) 100 mg PO TID [facility] Last Admin: 11/09/17 10:43 Dose: Not Given Famotidine (Pepcid) 20 mg PO 1000 [facility] Last Admin: 11/09/17 10:45 Dose: 20 mg Haloperidol Lactate (Haldol) 4 mg IM Q6 PRN; Protocol PRN Reason: Agitation Lisinopril (Zestril) 5 mg PO DAILY [facility] Last Admin: 11/09/17 10:43 Dose: Not Given Lorazepam (Ativan) 1 mg PO Q8 [facility] PRN Reason: Protocol Last Admin: 11/09/17 06:23 Dose: Not Given Lorazepam (Ativan) 1 mg PO Q6H PRN; Protocol PRN Reason: Agitation Methimazole (Tapazole) 5 mg PO BID [facility] Nystatin (Nystop Topical Powder) 0 gm TOP BID [facility] Last Admin: 11/09/17 10:45 Dose: 1 applic Ondansetron HCl (Zofran Inj) 4 mg IVP Q4H PRN PRN Reason: Nausea/Vomiting Polyethylene Glycol (Miralax) 17 gm PO BID [facility] Last Admin: 11/09/17 10:44 Dose: Not Given Propranolol HCl (Inderal) 10 mg PO TID [facility] Last Admin: 11/09/17 10:44 Dose: 10 mg Quetiapine Fumarate (Seroquel) 25 mg PO BID [facility] PRN Reason: Protocol Last Admin: 11/09/17 10:45 Dose: 25 mg Quetiapine Fumarate (Seroquel) 50 mg PO HS [facility] PRN Reason: Protocol Last Admin: 11/08/17 22:56 Dose: Not Given - Labs Labs: 11/08/17 07:00 11/09/17 06:15 - Constitutional Appears: No Acute Distress - Head Exam Head Exam: ATRAUMATIC, NORMAL INSPECTION - Eye Exam Eye Exam: EOMI Pupil Exam: PERRL - Respiratory Exam Respiratory Exam: Clear to Ausculation Bilateral. absent: Respiratory Distress - Cardiovascular Exam Cardiovascular Exam: REGULAR RHYTHM, +S1, +S2 - GI/Abdominal Exam GI & Abdominal Exam: Normal Bowel Sounds. absent: Firm, Guarding - Extremities Exam Extremities Exam: Normal Inspection. absent: Calf Tenderness Additional comments: right leg circular erythematous lesions noted - Neurological Exam Neurological Exam: Alert, Altered Neuro motor strength exam: Left Lower Extremity: 3, Right Lower Extremity: 5 - Skin Skin Exam: Normal Color, Warm Assessment and Plan - Assessment and Plan (Free Text) Assessment: 37 year old male with a PMH of cervical radiculopathy w/ herniated disc, cervical spondylosis w/ myelopathy, thoracic spondylosis and depression under hospital management for acute delirium. Currently suspect delirium 2/2 to chronic opiate usage. Patient's mentation is improved today. Is responding to questions appropriately. Currently on 1:1 sitter. Patient seen previously by Dr. Rosa. Increased lisinopril to 10mg. Plan: Acute delerium from skilled nursing opiate use -mentation is improving today, will continue to monitor mental status -per neurology, AMS likely 2/2 opiates, benzos which have extended half life. Pain consultation is recommended. Unlikely intracranial or meningoencephalitis process -per psych, continue haldol and ativan prn. Not needed overnight -Continue seroquel for agitation -history of chronic back pain with multiple cervical/thoracic laminectomies with intermediate project manager opiate use -unlikely infectious metabolic etiology at this time given afebrile, WBC WNL and electrolytes WNL -drug screen in ED was positive for opiates, methadone and benzos; meds are confirmed as being prescribed -holding home pain meds to avoid further worsening of delirium -moderate fall risk precautions -urine culture shows multiple species, possible contamination -blood culture negative after one day -Head CT on 11/06: no acute intracranial pathology -on seroquel, ativan prn, haloperidol prn -PT eval -currently on AVASYS -Neurology on consult, Dr. Pretty -Psych on consult, Dr. Lynne Possible Hyperthyroidism -Elevated T4 with decreased TSH; suspect hyperthyroidism; not previously diagnosed -on propranolol 10mg TID -per endo, thyroid antibodies are pending -Endo on consult, Dr. Mccauley Hypertension -elevated blood pressure today, most recent of 163/121 -increased lisinopril to 10mg, propanolol 10mg TID -will monitor Constipation -abdominal xray shows mild retained feces -will continue coalce liquid and miralax at this time -patient continues to be altered, denies abdominal pain -regular diet Hypokalemia -3.8 today WNL -will monitor PPX with SCD and pepcid Patient seen and discussed with attending, Dr. Greer <Jomar Greer - Last Filed: 11/09/17 15:02> Objective - Vital Signs/Intake and Output Vital Signs (last 24 hours): Temp Pulse Resp BP Pulse Ox 98.6 F 85 20 163/121 H 96 11/09/17 06:00 11/09/17 06:22 11/09/17 06:00 11/09/17 06:22 11/09/17 06:00 Intake and Output: 11/09/17 11/09/17 06:59 18:59 Intake Total 240 Balance 240 - Medications Medications: Current Medications Docusate Sodium (Colace Liquid) 100 mg PO TID [facility] Last Admin: 11/09/17 10:43 Dose: Not Given Famotidine (Pepcid) 20 mg PO 1000 [facility] Last Admin: 11/09/17 10:45 Dose: 20 mg Haloperidol Lactate (Haldol) 4 mg IM Q6 PRN; Protocol PRN Reason: Agitation Lisinopril (Zestril) 10 mg PO DAILY [facility] Lorazepam (Ativan) 1 mg PO Q8 [facility] PRN Reason: Protocol Last Admin: 11/09/17 06:23 Dose: Not Given Lorazepam (Ativan) 1 mg PO Q6H PRN; Protocol PRN Reason: Agitation Methimazole (Tapazole) 5 mg PO BID [facility] Nystatin (Nystop Topical Powder) 0 gm TOP BID [facility] Last Admin: 11/09/17 10:45 Dose: 1 applic Ondansetron HCl (Zofran Inj) 4 mg IVP Q4H PRN PRN Reason: Nausea/Vomiting Polyethylene Glycol (Miralax) 17 gm PO BID [facility] Last Admin: 11/09/17 10:44 Dose: Not Given Propranolol HCl (Inderal) 10 mg PO TID [facility] Last Admin: 11/09/17 10:44 Dose: 10 mg Quetiapine Fumarate (Seroquel) 25 mg PO BID [facility] PRN Reason: Protocol Last Admin: 11/09/17 10:45 Dose: 25 mg Quetiapine Fumarate (Seroquel) 50 mg PO HS [facility] PRN Reason: Protocol Last Admin: 11/08/17 22:56 Dose: Not Given - Labs Labs: 11/08/17 07:00 11/09/17 06:15 Attending/Attestation - Attestation I have personally seen and examined this patient.: Yes I have fully participated in the care of the patient.: Yes I have reviewed all pertinent clinical information, including history, physical exam and plan: Yes Notes (Text): 11/09/17 14:59 Attending note; Patient seen and examined with resident. Patient is alert and awake. does not want to answer questions. Trying to rest. the patient knows he lives in [place] with his mother. not in any acute distress. Still with episodes of confusion. Patient is a 37 year old male with past medical history that is significant for cervical radiculopathy with herniated disc, cervical spondylosis with myelopathy , thoracic spondylosis, and depression/anxiety presented to the emergency room with confusion and hallucinations. 1. Acute delirium. Polypharmacy. slowly resolving. Likely secondary to chronic pain medication use. Patient regularly uses oxycodone and methadone. Most likely mental status changes secondary to polypharmacy and psychiatric issues. No infectious cause identified. UA negative. urine culture, blood culture is negative. Chest x-ray preliminarily did not show any acute infiltrate. Drug screen positive for opiates, methadone, and benzos. Neurology evaluation appreciated. Head CT is negative for acute intracranial pathology. Psychiatry evaluation appreciated. Started on Ativan, Seroquel and Haldol. 2. Constipation. Resolved. on colace and miralax.had one bowel movement yesterday. Mostly secondary to chronic pain medications. Patient is tolerating diet. No nausea or vomiting noted. 3. mild hyperthyroidism; will start propranolol. endocrinology evaluation appreciated. Started on methimazole. 4. Hypertension; continue lisinopril. PT evaluation appreciated. Subacute rehabilitation versus home recommended. Patient has poor motivation to do physical therapy. 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 Upon discharge patient will follow up with PMD .
--- NOTE | 2017-11-09 15:48 | PN ---
Copied To: Ashley Mccauley MD Attending MD: Ashley Mccauley MD DATE: 11/09/2017 ENDOCRINOLOGY FOLLOWUP NOTE LOCATION: In room 567. SUBJECTIVE: This is a 37-year-old male with recent admission for behavioral disturbances and now being followed closely for metabolic management. LABORATORY DATA: His repeat thyroid studies today shows T4 of 13.8 mcg/dL with a TSH of 0.08 and a free T4 of 2.17. His chemistry shows a BUN of 11. Sodium 136, potassium 3.8, chloride 95, CO2 of 28. Glucose 111. Creatinine 0.7. ASSESSMENT: This is a 37-year-old male with early hyperthyroidism noted not only clinically, but also biochemically with elevated thyroxine values and suppressed TSH as noted and most likely related to underlying autoimmune thyroiditis. Ashley Mccauley MD
[2017-11-09] MEDS: methIMAzole 5 MG TAB PO SCH (18:25)
--- NOTE | 2017-11-10 02:42 | PN ---
Copied To: Taylor Issa MD Attending MD: Taylor Issa MD DATE: 11/09/2017 SUBJECTIVE: The patient was seen initially by Dr. Lynne, this scientific technical writer took over. The patient obviously is in delirium stage due to polypharmacy and due to medical issues. The patient still has elevated blood pressure. This scientific technical writer attempted to speak to the patient. The patient appears to be very confused. He does not know where he is. The patient was keep repeating, "I am in dipping, I am in dipping". The patient then pointed something on the floor. This scientific technical writer to help him and had difficulty to express what he is seeing, obviously appears to be psychotic and responding to internal stimuli. As per nursing staff, the patient does not have any aggressive or agitated behavior, but the patient appears to be very confused and lethargic. Vital signs seems to be stable. Temperature 98.6, pulse is 85, blood pressure 163/121, respirations 20 and oxygen saturation is 96. Medications reviewed. The patient is on Colace liquid, but the patient refused to take Pepcid. Haldol is as needed for agitation; the patient was not agitated, did not require any IMs. There is still Ativan p.r.n.; the patient did not require that. Ativan 1 mg p.o. every 8 hours scheduled. The patient is on methimazole, nystatin, Zofran, MiraLax, Inderal, Seroquel 25 mg twice a day, 2 doses were held because the patient was lethargic, also evening dose of Seroquel will be on hold because the patient was lethargic. This scientific technical writer checked the lab work, seems to be within normal limits, but hemoglobin is 13, 39.1 hematocrit. Chemistry reviewed. T4 is 13.8, TSH is 0.08. Urinalysis showed ketone trace. Toxicology positive for opiate, methadone as well as benzodiazepines. Microbiology, no growth in the in the blood. Urine showed multiple species most likely contamination. The patient was seen by downstream biomanufacturing technician, Dr. Mccauley. As per Dr. Mccauley's evaluation, the patient with early hyperthyroidism noted not only clinically but also biochemically with elevated thyroxine value and suppressed TSH is noted and most likely related to underlying autoimmune thyroiditis. MENTAL STATUS EXAMINATION: Not possible to have meaningful conversation because of the mental status. The patient appeared to be internally preoccupied, actively hallucinating during the interview. The patient does not know where he is, alternating with falling asleep and lethargy. Insight and judgment seems to be very poor. Impulses are unpredictable. IMPRESSION: Most likely, the patient has multifactorial delirium, polypharmacy as well as substance abuse as well as medical issues and the hyperthyroidism. PLAN: Continue current management. Continue current medications. P.r.n. medications are in the computer. Meds were confirmed by Dr. Lynne. We will follow up and advise accordingly. Discussed with Dr. Greer today. Should you have any questions, give me a call back. Taylor Issa MD
[2017-11-10 07:52] LABS: BASO # 0.01 K/mm3 (0.0-2.0); BASO % 0.1 % (0.0-3.0); EOS % 0.2 % (1.5-5.0); GRAN # 7.92 (1.4-6.5); GRAN % 70.9 % (50.0-68.0); HEMOGLOBIN 13.1 g/dL (14.0-18.0); LYMPH # 2.5 (1.2-3.4); LYMPH % 22.3 % (22.0-35.0); MEAN CELL VOLUME 83.8 fl (80.0-105.0); MEAN CORPUSCULAR HEMOGLOBIN 27.9 pg (25.0-35.0); MEAN CORPUSCULAR HGB CONC 33.3 g/dl (31.0-37.0); MEAN PLATELET VOLUME 9.5 fl (7.0-11.0); MONO # 0.7 (0.1-0.6); MONO % 6.5 % (1.0-6.0); RBC 4.69 10^6/uL (3.5-6.1); RED CELL DISTRIBUTION WIDTH 13.8 % (11.5-14.5); WHITE BLOOD COUNT 11.2 10^3/ul (4.5-11.0)
[2017-11-10 08:07] LABS: ALBUMIN 4.2 g/dL (3.0-4.8); ALT/SGPT 30 U/L (7-56); AST/SGOT 30 U/L (17-59); BLOOD UREA NITROGEN 13 mg/dL (7-21); CALCIUM 9.7 mg/dL (8.4-10.5); GFR NON-AFRICAN AMERICAN > 60
[2017-11-10 08:36] LABS: T4 12.7 ug/dL (5.5-11.0)
[2017-11-10] MEDS: POLYETHYLENE GLYCOL 3350 17 GM/Dose PACKET PO SCH ×2 (10:02→17:36)
[2017-11-10] MEDS: Nystatin 100,000 Units/gm Topical Pow(15 gm) TOP SCH ×2 (10:02→17:39)
[2017-11-10] MEDS: methIMAzole 5 MG TAB PO SCH ×2 (10:03→17:40)
--- NOTE | 2017-11-10 13:35 | PN ---
DATE: 11/10/2017 FOLLOWUP NOTE SUBJECTIVE: Shortly, the patient is 37-year-old male, history of questionable polysubstance abuse and dependence. The patient was admitted on the medical site status post altered mental status. The patient has episodes of confusion and the patient does not make sense. The patient was seen by this engineering technical writer and Dr. Lynne since the time of admission. Please see initial note for more detailed information on 11/07. Since that time, the patient has episodes of lethargy. The patient is confused, not able to participate in interview. Today, the patient was saying to call his parents and be harsh on them because he wants have them up. The patient also has episodes of visual hallucinations. The patient moaning something incoherently. PHYSICAL EXAMINATION: VITAL SIGNS: Seems to be stable, but the patient still has elevated blood pressure. Yesterday, the patient had spike of fever, low grade 100.4. Today, pulse is 96, blood pressure 160/110, respirations 18, oxygen saturation is 97%. MEDICATIONS: Reviewed. The patient is on Ativan 1 mg every 6 hours schedule, MiraLax, Inderal, Seroquel 25 mg twice a day and 50 mg at the nighttime. LABORATORY DATA: Reviewed. The patient has leukocytosis today at 11.2, hemoglobin 13, hematocrit 39.3. Chemistry reviewed. The patient has hyperthyroidism, also was seen by toy parts former supervisor. Urinalysis was positive for opiates, methadone, and benzodiazepines, obviously polypharmacy. MENTAL STATUS EXAMINATION: As this engineering technical writer described above, the patient has episodes of confusion, very lethargic, has episodes of visual hallucinations, moaning something, and the patient is still in hyperactive delirium stage. IMPRESSION: Polypharmacy and delirium due to multiple drugs as well as the medical issues. PLAN: Continue current management. Seroquel as ordered. We will follow up and advise accordingly. Thank you very much for letting me participate in care of your patient. Taylor Issa MD
--- NOTE | 2017-11-10 15:09 | CP.PCM.PN ---
<Scott Cedeno - Last Filed: 11/10/17 14:56> Subjective - Date & Time of Evaluation Date of Evaluation: 11/10/17 Time of Evaluation: 14:56 - Subjective Subjective: Scott Cedeno, PGY-1 Progress Note for Hospitalist Service Patient seen and examined at bedside this morning. No acute events noted overnight. Offers no new complaints today. Patient continues to be lethargic and altered. May consider decreasing seroquel and ativan. Objective - Vital Signs/Intake and Output Vital Signs (last 24 hours): Temp Pulse Resp BP Pulse Ox 98.9 F 96 H 18 163/112 H 97 11/10/17 06:00 11/10/17 06:00 11/10/17 06:00 11/10/17 14:55 11/10/17 06:00 - Medications Medications: Current Medications Docusate Sodium (Colace Liquid) 100 mg PO TID [facility] Last Admin: 11/10/17 14:54 Dose: 100 mg Famotidine (Pepcid) 20 mg PO 1000 [facility] Last Admin: 11/10/17 10:02 Dose: 20 mg Haloperidol Lactate (Haldol) 4 mg IM Q6 PRN; Protocol PRN Reason: Agitation Lisinopril (Zestril) 10 mg PO DAILY [facility] Last Admin: 11/10/17 10:03 Dose: 10 mg Lorazepam (Ativan) 1 mg PO Q8 [facility] PRN Reason: Protocol Last Admin: 11/10/17 14:55 Dose: Not Given Lorazepam (Ativan) 1 mg PO Q6H PRN; Protocol PRN Reason: Agitation Methimazole (Tapazole) 5 mg PO BID [facility] Last Admin: 11/10/17 10:03 Dose: 5 mg Nystatin (Nystop Topical Powder) 0 gm TOP BID [facility] Last Admin: 11/10/17 10:02 Dose: 1 applic Ondansetron HCl (Zofran Inj) 4 mg IVP Q4H PRN PRN Reason: Nausea/Vomiting Polyethylene Glycol (Miralax) 17 gm PO BID [facility] Last Admin: 11/10/17 10:02 Dose: 17 gm Propranolol HCl (Inderal) 10 mg PO TID [facility] Last Admin: 11/10/17 14:55 Dose: 10 mg Quetiapine Fumarate (Seroquel) 25 mg PO BID [facility] PRN Reason: Protocol Last Admin: 11/10/17 10:02 Dose: 25 mg Quetiapine Fumarate (Seroquel) 50 mg PO HS [facility] PRN Reason: Protocol Last Admin: 11/09/17 21:56 Dose: 50 mg - Labs Labs: 11/10/17 07:30 11/10/17 07:00 - Constitutional Appears: Confused - Head Exam Head Exam: ATRAUMATIC, NORMAL INSPECTION - Eye Exam Eye Exam: EOMI Pupil Exam: PERRL - Respiratory Exam Respiratory Exam: Clear to Ausculation Bilateral. absent: Respiratory Distress - Cardiovascular Exam Cardiovascular Exam: REGULAR RHYTHM, +S1, +S2 - GI/Abdominal Exam GI & Abdominal Exam: Normal Bowel Sounds. absent: Guarding, Rigid - Extremities Exam Extremities Exam: Normal Inspection. absent: Calf Tenderness - Neurological Exam Neurological Exam: Alert, Altered Neuro motor strength exam: Left Lower Extremity: 3, Right Lower Extremity: 5 - Skin Skin Exam: Normal Color, Warm Assessment and Plan - Assessment and Plan (Free Text) Assessment: 37 year old male with a PMH of cervical radiculopathy w/ herniated disc, cervical spondylosis w/ myelopathy, thoracic spondylosis and depression under hospital management for acute delirium. Currently suspect delirium 2/2 to chronic opiate usage. Patient is lethargic and altered today. Alert to time place and person but not time. Plan: Acute delerium from group home opiate use -continues to be lethargic and drowsy; will consider decreasing seroquel and ativan -per neurology, AMS likely 2/2 opiates, benzos which have extended half life. Pain consultation is recommended. Unlikely intracranial or meningoencephalitis process. 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 Lynne Autoimmune thyroiditis -Elevated T4 with decreased TSH -on propranolol and methimazole -Endo on consult, Dr. Mccauley Hypertension -elevated blood pressure today, most recent of 163/112 -lisinopril to 10mg, propanolol 10mg TID, amlodipine 5mg -will monitor Constipation -abdominal xray shows mild retained feces -will continue coalce liquid and miralax at this time -patient continues to be altered, denies abdominal pain -regular diet Hypokalemia -3.9 today WNL -will monitor PPX with SCD and pepcid Patient seen and discussed with attending, Dr. Greer <Jomar Greer - Last Filed: 11/11/17 08:48> Objective - Vital Signs/Intake and Output Vital Signs (last 24 hours): Temp Pulse Resp BP Pulse Ox 98.2 F 93 H 20 141/99 H 97 11/11/17 06:00 11/11/17 06:00 11/11/17 06:00 11/11/17 06:00 11/11/17 06:00 Intake and Output: 11/11/17 11/11/17 06:59 18:59 Intake Total 240 Balance 240 - Medications Medications: Current Medications Amlodipine Besylate (Norvasc) 5 mg PO DAILY [facility] Last Admin: 11/10/17 17:36 Dose: 5 mg Docusate Sodium (Colace Liquid) 100 mg PO TID [facility] Last Admin: 11/10/17 17:35 Dose: 100 mg Famotidine (Pepcid) 20 mg PO 1000 [facility] Last Admin: 11/10/17 10:02 Dose: 20 mg Haloperidol Lactate (Haldol) 4 mg IM Q6 PRN; Protocol PRN Reason: Agitation Lisinopril (Zestril) 10 mg PO DAILY [facility] Last Admin: 11/10/17 10:03 Dose: 10 mg Lorazepam (Ativan) 1 mg PO Q8 [facility] PRN Reason: Protocol Last Admin: 11/10/17 14:55 Dose: Not Given Lorazepam (Ativan) 1 mg PO Q6H PRN; Protocol PRN Reason: Agitation Methimazole (Tapazole) 5 mg PO BID [facility] Last Admin: 11/10/17 17:40 Dose: 5 mg Nystatin (Nystop Topical Powder) 0 gm TOP BID [facility] Last Admin: 11/10/17 17:39 Dose: 1 applic Ondansetron HCl (Zofran Inj) 4 mg IVP Q4H PRN PRN Reason: Nausea/Vomiting Polyethylene Glycol (Miralax) 17 gm PO BID [facility] Last Admin: 11/10/17 17:36 Dose: 17 gm Propranolol HCl (Inderal) 10 mg PO TID [facility] Last Admin: 11/10/17 17:35 Dose: 10 mg Quetiapine Fumarate (Seroquel) 25 mg PO BID [facility] PRN Reason: Protocol Last Admin: 11/10/17 19:03 Dose: Not Given Quetiapine Fumarate (Seroquel) 50 mg PO HS [facility] PRN Reason: Protocol Last Admin: 11/10/17 21:30 Dose: 50 mg - Labs Labs: 11/11/17 06:30 11/11/17 06:30 Attending/Attestation - Attestation I have personally seen and examined this patient.: Yes I have fully participated in the care of the patient.: Yes I have reviewed all pertinent clinical information, including history, physical exam and plan: Yes Notes (Text): 11/11/17 08:46 Attending note; Patient seen and examined with resident. Patient is alert and awake. able to answer only few questions. the patient knows he lives in [place] with his mother. not in any acute distress. on AVYS monitor system. Needs assistance with meals. Patient is a 37 year old male with past medical history that is significant for cervical radiculopathy with herniated disc, cervical spondylosis with myelopathy , thoracic spondylosis, and depression/anxiety presented to the emergency room with confusion and hallucinations. 1. Acute delirium. Polypharmacy. slowly resolving. Likely secondary to chronic pain medication use. Patient regularly uses oxycodone and methadone. Most likely mental status changes secondary to polypharmacy and psychiatric issues. No infectious cause identified. UA negative. urine culture, blood culture is negative. Chest x-ray preliminarily did not show any acute infiltrate. Drug screen positive for opiates, methadone, and benzos. Neurology evaluation appreciated. Head CT is negative for acute intracranial pathology. Psychiatry evaluation appreciated. Started on Ativan, Seroquel and Haldol. Adjust medications per psychiatrist. 2.hyperthyroidism; will start propranolol. endocrinology evaluation appreciated. Started on methimazole. 4. Hypertension; continue lisinopril and Norvasc. Continue propranolol. Tachycardia is resolving. PT evaluation appreciated. Subacute rehabilitation versus home recommended. Patient has poor motivation to do physical therapy. 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 Upon discharge patient will follow up with PMD .
--- NOTE | 2017-11-10 18:09 | PN ---
DATE: 11/10/2017 ENDO FOLLOWUP NOTE LOCATION: In room 567. SUBJECTIVE: This is a 37-year-old male with recent behavioral disturbances with underlying anxiety and depression and recent opioid dependence and is now being followed closely for metabolic management. His latest chemistry showed a BUN of 13, sodium 137, potassium 3.9, chloride 95, CO2 of 29, glucose 113 and creatinine 0.7. His latest thyroid study showed a T4 of 12.7 with a TSH of 0.22. So at this time, we will continue his low-dose medical therapy with Tapazole to be given as 5 mg b.i.d. after meals as ordered. We will obtain serial thyroid studies and titrate his dose regimen accordingly. We will follow. Ashley Mccauley MD
[2017-11-11 07:18] LABS: BASO # 0.01 K/mm3 (0.0-2.0); BASO % 0.1 % (0.0-3.0); GRAN # 10.24 (1.4-6.5); GRAN % 77.5 % (50.0-68.0); HEMOGLOBIN 13.9 g/dL (14.0-18.0); LYMPH # 2.1 (1.2-3.4); LYMPH % 15.8 % (22.0-35.0); MEAN CELL VOLUME 84.3 fl (80.0-105.0); MEAN CORPUSCULAR HEMOGLOBIN 28.7 pg (25.0-35.0); MEAN PLATELET VOLUME 9.8 fl (7.0-11.0); MONO # 0.9 (0.1-0.6); MONO % 6.6 % (1.0-6.0); RBC 4.85 10^6/uL (3.5-6.1); RED CELL DISTRIBUTION WIDTH 13.8 % (11.5-14.5); WHITE BLOOD COUNT 13.2 10^3/ul (4.5-11.0)
[2017-11-11 07:34] LABS: ALBUMIN 4.3 g/dL (3.0-4.8); ALT/SGPT 46 U/L (7-56); AST/SGOT 36 U/L (17-59); BLOOD UREA NITROGEN 14 mg/dL (7-21); CALCIUM 9.6 mg/dL (8.4-10.5); GFR NON-AFRICAN AMERICAN > 60
[2017-11-11] MEDS: methIMAzole 5 MG TAB PO SCH ×2 (09:07→19:08)
[2017-11-11] MEDS: POLYETHYLENE GLYCOL 3350 17 GM/Dose PACKET PO SCH ×2 (09:09→19:08)
[2017-11-11] MEDS: Nystatin 100,000 Units/gm Topical Pow(15 gm) TOP SCH ×2 (09:11→19:08)
--- NOTE | 2017-11-11 13:34 | CP.PCM.PN ---
<Scott Cedeno - Last Filed: 11/11/17 17:43> Subjective - Date & Time of Evaluation Date of Evaluation: 11/11/17 Time of Evaluation: 13:30 - Subjective Subjective: Scott Cedeno, PGY-1 Progress Note for Hospitalist Service Patient seen and examined at bedside this morning. No acute events noted overnight. Patient is responding to questions and interaction is improved from yesterday. P.T working with patient. Offers no new complaints today. Objective - Vital Signs/Intake and Output Vital Signs (last 24 hours): Temp Pulse Resp BP Pulse Ox 98.2 F 93 H 20 144/98 H 97 11/11/17 06:00 11/11/17 06:00 11/11/17 06:00 11/11/17 09:09 11/11/17 06:00 Intake and Output: 11/11/17 11/11/17 06:59 18:59 Intake Total 240 Balance 240 - Medications Medications: Current Medications Amlodipine Besylate (Norvasc) 5 mg PO DAILY [facility] Last Admin: 11/11/17 09:09 Dose: 5 mg Docusate Sodium (Colace Liquid) 100 mg PO TID [facility] Last Admin: 11/11/17 09:09 Dose: 100 mg Famotidine (Pepcid) 20 mg PO 1000 [facility] Last Admin: 11/11/17 09:06 Dose: 20 mg Haloperidol Lactate (Haldol) 4 mg IM Q6 PRN; Protocol PRN Reason: Agitation Lisinopril (Zestril) 10 mg PO DAILY [facility] Last Admin: 11/11/17 09:07 Dose: 10 mg Lorazepam (Ativan) 1 mg PO Q8 [facility] PRN Reason: Protocol Last Admin: 11/11/17 13:03 Dose: Not Given Lorazepam (Ativan) 1 mg PO Q6H PRN; Protocol PRN Reason: Agitation Last Admin: 11/11/17 09:07 Dose: 1 mg Methimazole (Tapazole) 5 mg PO BID [facility] Last Admin: 11/11/17 09:07 Dose: 5 mg Nystatin (Nystop Topical Powder) 0 gm TOP BID [facility] Last Admin: 11/11/17 09:11 Dose: 1 applic Ondansetron HCl (Zofran Inj) 4 mg IVP Q4H PRN PRN Reason: Nausea/Vomiting Polyethylene Glycol (Miralax) 17 gm PO BID [facility] Last Admin: 11/11/17 09:09 Dose: 17 gm Propranolol HCl (Inderal) 10 mg PO TID [facility] Last Admin: 11/11/17 09:08 Dose: 10 mg Quetiapine Fumarate (Seroquel) 25 mg PO BID [facility] PRN Reason: Protocol Last Admin: 11/11/17 09:08 Dose: 25 mg Quetiapine Fumarate (Seroquel) 50 mg PO HS [facility] PRN Reason: Protocol Last Admin: 11/10/17 21:30 Dose: 50 mg - Labs Labs: 11/11/17 06:30 11/11/17 06:30 - Constitutional Appears: No Acute Distress - Head Exam Head Exam: ATRAUMATIC, NORMAL INSPECTION - Eye Exam Eye Exam: EOMI Pupil Exam: PERRL - ENT Exam ENT Exam: Mucous Membranes Moist - Respiratory Exam Respiratory Exam: Clear to Ausculation Bilateral. absent: Respiratory Distress - Cardiovascular Exam Cardiovascular Exam: REGULAR RHYTHM, +S1, +S2 - GI/Abdominal Exam GI & Abdominal Exam: Normal Bowel Sounds. absent: Guarding, Rigid - Extremities Exam Extremities Exam: Normal Inspection. absent: Calf Tenderness - Back Exam Additional comments: surgical scar note on midline from previous cervical/thoracic laminectomies - Neurological Exam Neurological Exam: Alert, Altered, Awake Neuro motor strength exam: Left Lower Extremity: 4, Right Lower Extremity: 5 - Skin Skin Exam: Normal Color, Warm Assessment and Plan - Assessment and Plan (Free Text) Assessment: 37 year old male with a PMH of cervical radiculopathy w/ herniated disc, cervical spondylosis w/ myelopathy, thoracic spondylosis and depression under hospital management for acute delirium. Currently suspect delirium 2/2 to chronic opiate usage. Patient is responding to questions and communicating in complete sentences. Improving mentation. Awaiting P.T. recommendations - patient has difficulty with ambulating. May need subacute rehab. Plan: Delirium- improving -P.T attempted to help patient out of bed today, patient has difficulty with standing up -patient is altered but has improving behavorial status. Responding to questions. -will discuss with psych if psych meds need to be adjusted -per neurology, AMS likely 2/2 opiates, benzos which have extended half life. Pain consultation is recommended. Unlikely intracranial or meningoencephalitis process. Neuro signed off case -per psych, will continue to observe with medical managements -history of chronic back pain with multiple cervical/thoracic laminectomies with retirement opiate use -unlikely infectious metabolic etiology at this time given afebrile, WBC WNL and electrolytes WNL -drug screen in ED was positive for opiates, methadone and benzos; meds are confirmed as being prescribed -holding pain meds to avoid further worsening of delirium -fall risk precautions -urine culture shows multiple species, possible contamination -blood culture negative thus far -Head CT on 11/06: no acute intracranial pathology -on seroquel, ativan prn, haloperidol prn -currently on AVASYS -Psych on consult, Dr. Lynne Autoimmune thyroiditis -Elevated T4 with decreased TSH -on propranolol and methimazole -Endo on consult, Dr. Mccauley Hypokalemia -3.3 today, repleted -will monitor Hypertension - resolved -most recent of -continue lisinopril to 10mg, propanolol 10mg TID, amlodipine 5mg -will monitor Constipation -abdominal xray shows mild retained feces -will continue coalce liquid and miralax -patient continues to be altered, denies abdominal pain at this time -regular diet PPX with SCD and pepcid Patient seen and discussed with attending, Dr. Greer <Jomar Greer - Last Filed: 11/12/17 13:32> Objective - Vital Signs/Intake and Output Vital Signs (last 24 hours): Temp Pulse Resp BP Pulse Ox 98.2 F 105 H 18 142/100 H 95 11/12/17 07:44 11/12/17 07:44 11/12/17 07:44 11/12/17 09:57 11/12/17 07:44 Intake and Output: 11/12/17 11/12/17 06:59 18:59 Intake Total 0 Balance 0 - Medications Medications: Current Medications Amlodipine Besylate (Norvasc) 5 mg PO DAILY [facility] Last Admin: 11/12/17 09:57 Dose: 5 mg Docusate Sodium (Colace Liquid) 100 mg PO TID [facility] Last Admin: 11/12/17 09:59 Dose: 100 mg Enoxaparin Sodium (Lovenox) 40 mg SC DAILY [facility] PRN Reason: Protocol Famotidine (Pepcid) 20 mg PO 1000 [facility] Last Admin: 11/12/17 09:56 Dose: 20 mg Haloperidol Lactate (Haldol) 4 mg IM Q6 PRN; Protocol PRN Reason: Agitation Lisinopril (Zestril) 10 mg PO DAILY [facility] Last Admin: 11/12/17 09:57 Dose: 10 mg Lorazepam (Ativan) 1 mg PO Q6H PRN; Protocol PRN Reason: Agitation Last Admin: 11/11/17 09:07 Dose: 1 mg Lorazepam (Ativan) 1 mg PO Q12 [facility] PRN Reason: Protocol Last Admin: 11/12/17 09:59 Dose: Not Given Methimazole (Tapazole) 5 mg PO BID [facility] Last Admin: 11/12/17 09:57 Dose: 5 mg Nystatin (Nystop Topical Powder) 0 gm TOP BID [facility] Last Admin: 11/12/17 10:00 Dose: 1 applic Ondansetron HCl (Zofran Inj) 4 mg IVP Q4H PRN PRN Reason: Nausea/Vomiting Polyethylene Glycol (Miralax) 17 gm PO BID [facility] Last Admin: 11/12/17 09:59 Dose: 17 gm Propranolol HCl (Inderal) 10 mg PO TID [facility] Last Admin: 11/12/17 09:57 Dose: 10 mg Quetiapine Fumarate (Seroquel) 25 mg PO HS [facility] PRN Reason: Protocol Last Admin: 11/11/17 22:01 Dose: 25 mg Quetiapine Fumarate (Seroquel) 25 mg PO DAILY [facility] PRN Reason: Protocol - Labs Labs: 11/12/17 07:30 11/12/17 07:30 Attending/Attestation - Attestation I have personally seen and examined this patient.: Yes I have fully participated in the care of the patient.: Yes I have reviewed all pertinent clinical information, including history, physical exam and plan: Yes Notes (Text): 11/12/17 13:28 Attending note; Patient seen and examined with resident. Patient is alert and awake. able to answer only few questions. the patient knows he lives in [place] with his mother. not in any acute distress. on AVYS monitor system. Needs assistance with meals. Patient is a 37 year old male with past medical history that is significant for cervical radiculopathy with herniated disc, cervical spondylosis with myelopathy , thoracic spondylosis, and depression/anxiety presented to the emergency room with confusion and hallucinations. 1. Acute delirium. Polypharmacy.slowly resolving. still with episodes of hallucinations. Most likely mental status changes secondary to polypharmacy and psychiatric issues. No infectious cause identified. UA negative. urine culture, blood culture is negative. Chest x-ray preliminarily did not show any acute infiltrate. Drug screen positive for opiates, methadone, and benzos. Neurology evaluation appreciated. Head CT is negative for acute intracranial pathology. Psychiatry evaluation appreciated. Started on Ativan, Seroquel and Haldol. Adjust medications per psychiatrist. 2.hyperthyroidism; on propranolol and methimazole. endocrinology evaluation appreciated. 3.Hypertension; continue lisinopril , Norvasc and propranolol. PT evaluation appreciated. Subacute rehabilitation versus home recommended. case discussed with mother in detail. Patient has poor motivation to do physical therapy Secondary to fluctuating mental status and agitation. We will follow up with psychiatrist closely. community center worker evaluation appreciated. Upon discharge patient will follow up with PMD . 11/12/17 13:30 11/12/17 13:31
--- NOTE | 2017-11-11 21:11 | PN ---
DATE: 11/11/2017 SUBJECTIVE: The patient was followed up today. The patient presented the same way. The patient is absolutely disorganized, does not make any sense. The patient feels that he is at home. The patient observed playing with his poops. The patient is having episodes of confusion, but there is no agitation. The patient seems to be in hypoactive delirium. No meaningful conversation possible as of now. Vital signs reviewed. Temperature 97.7, pulse is 91, blood pressure 150/105, respiration 26 and saturations 97. Medications reviewed; Norvasc, Colace, Pepcid. The patient is on Haldol 4 mg IM every 6 hours p.r.n., lisinopril, Ativan 1 mg every 6 hours p.r.n., most recent was today. Ativan will be decreased to 1 mg p.o. every 12 hours scheduled. The patient is on methimazole, nystatin, Zofran, MiraLax, Inderal. The patient was on Seroquel 25 mg twice a day and 50 mg at the nighttime, it will be decreased to 25 mg three times a day because patient's primary team is raising concerns about the patient's lethargy. Labs reviewed. The patient still has WBC cells elevated and it is increasing, today is 13.2; hemoglobin is 13.9; hematocrit 40. Chemistry reviewed. Most recent T4 is 12.7, TSH is a 0.22. Urinalysis reviewed. Toxicology reviewed. MENTAL STATUS EXAMINATION: As this repairer typewriter described above. The patient is absolutely confused. The patient does not know where he is. The patient was observed playing with his poops. The patient is grimacing and no meaningful conversation is possible. Insight and judgment seems to be impaired. Impulses are unpredictable. IMPRESSION: Most likely the patient is in hypoactive delirium stage due to medical condition. The patient was found to have hyperthyroidism. The patient has polypharmacy. The patient was on multiple pain killers, benzodiazepines. The patient also was prescribed stimulants. PLAN: Decrease dose of Seroquel. Ativan was decreased. The patient has no capacity to sign himself in. The patient is in delirium stage. Dr. Lnyne will follow up on this patient over the weekend. Should you have any questions, give me a call back. Case was discussed in details with Dr. Greer today. Thank you very much. Taylor Issa MD [facility] # [id number]
[2017-11-12 08:20] LABS: BASO # 0.02 K/mm3 (0.0-2.0); BASO % 0.2 % (0.0-3.0); EOS % 0.1 % (1.5-5.0); GRAN # 6.83 (1.4-6.5); GRAN % 65.4 % (50.0-68.0); HEMOGLOBIN 14.5 g/dL (14.0-18.0); LYMPH # 2.8 (1.2-3.4); LYMPH % 26.6 % (22.0-35.0); MEAN CELL VOLUME 83.2 fl (80.0-105.0); MEAN CORPUSCULAR HEMOGLOBIN 28.3 pg (25.0-35.0); MEAN PLATELET VOLUME 9.7 fl (7.0-11.0); MONO # 0.8 (0.1-0.6); MONO % 7.7 % (1.0-6.0); RBC 5.13 10^6/uL (3.5-6.1); RED CELL DISTRIBUTION WIDTH 13.6 % (11.5-14.5); WHITE BLOOD COUNT 10.4 10^3/ul (4.5-11.0)
[2017-11-12 08:34] LABS: ALBUMIN 4.4 g/dL (3.0-4.8); ALT/SGPT 70 U/L (7-56); AST/SGOT 45 U/L (17-59); BLOOD UREA NITROGEN 13 mg/dL (7-21); CALCIUM 9.8 mg/dL (8.4-10.5); GFR NON-AFRICAN AMERICAN > 60
[2017-11-12] MEDS: methIMAzole 5 MG TAB PO SCH ×2 (09:57→18:15)
[2017-11-12] MEDS: POLYETHYLENE GLYCOL 3350 17 GM/Dose PACKET PO SCH ×2 (09:59→18:16)
[2017-11-12] MEDS: Nystatin 100,000 Units/gm Topical Pow(15 gm) TOP SCH ×2 (10:00→18:17)
--- NOTE | 2017-11-12 14:58 | CP.PCM.PN ---
<Alfonzo Mclean - Last Filed: 11/12/17 16:21> Subjective - Date & Time of Evaluation Date of Evaluation: 11/12/17 Time of Evaluation: 07:00 - Subjective Subjective: Alfonzo Mclean PGY1 Medicine Progress Note for Dr. Greer Patient was seen and examined at bedside this morning. Patient is a poor historian, could not obtain an appropriate review of systems. Patient is still lethargic and altered. No acute events overnight. Objective - Vital Signs/Intake and Output Vital Signs (last 24 hours): Temp Pulse Resp BP Pulse Ox 98.2 F 105 H 18 142/100 H 95 11/12/17 07:44 11/12/17 07:44 11/12/17 07:44 11/12/17 09:57 11/12/17 07:44 Intake and Output: 11/12/17 11/12/17 06:59 18:59 Intake Total 0 Balance 0 - Medications Medications: Current Medications Amlodipine Besylate (Norvasc) 10 mg PO DAILY [facility] Docusate Sodium (Colace Liquid) 100 mg PO TID [facility] Last Admin: 11/12/17 09:59 Dose: 100 mg Enoxaparin Sodium (Lovenox) 40 mg SC DAILY [facility] PRN Reason: Protocol Famotidine (Pepcid) 20 mg PO 1000 [facility] Last Admin: 11/12/17 09:56 Dose: 20 mg Haloperidol Lactate (Haldol) 4 mg IM Q6 PRN; Protocol PRN Reason: Agitation Lisinopril (Zestril) 10 mg PO DAILY [facility] Last Admin: 11/12/17 09:57 Dose: 10 mg Lorazepam (Ativan) 1 mg PO Q6H PRN; Protocol PRN Reason: Agitation Last Admin: 11/11/17 09:07 Dose: 1 mg Lorazepam (Ativan) 1 mg PO Q12 [facility] PRN Reason: Protocol Last Admin: 11/12/17 09:59 Dose: Not Given Methimazole (Tapazole) 5 mg PO BID [facility] Last Admin: 11/12/17 09:57 Dose: 5 mg Nystatin (Nystop Topical Powder) 0 gm TOP BID [facility] Last Admin: 11/12/17 10:00 Dose: 1 applic Ondansetron HCl (Zofran Inj) 4 mg IVP Q4H PRN PRN Reason: Nausea/Vomiting Polyethylene Glycol (Miralax) 17 gm PO BID [facility] Last Admin: 11/12/17 09:59 Dose: 17 gm Propranolol HCl (Inderal) 10 mg PO TID [facility] Last Admin: 11/12/17 09:57 Dose: 10 mg Quetiapine Fumarate (Seroquel) 25 mg PO HS [facility] PRN Reason: Protocol Last Admin: 11/11/17 22:01 Dose: 25 mg Quetiapine Fumarate (Seroquel) 25 mg PO DAILY [facility] PRN Reason: Protocol - Labs Labs: 11/12/17 07:30 11/12/17 07:30 - Head Exam Head Exam: ATRAUMATIC, NORMAL INSPECTION, NORMOCEPHALIC - Eye Exam Eye Exam: EOMI, PERRL - ENT Exam ENT Exam: Mucous Membranes Moist, Normal Exam - Neck Exam Neck Exam: Full ROM, Normal Inspection. absent: Lymphadenopathy - Respiratory Exam Respiratory Exam: Clear to Ausculation Bilateral, NORMAL BREATHING PATTERN. absent: Rales, Rhonchi, Wheezes - Cardiovascular Exam Cardiovascular Exam: REGULAR RHYTHM, +S1, +S2. absent: Murmur - GI/Abdominal Exam GI & Abdominal Exam: Soft, Normal Bowel Sounds. absent: Tenderness - Neurological Exam Neurological Exam: Alert, Awake. absent: Oriented x3 (AAOx1) - Skin Skin Exam: Dry, Intact, Normal Color, Warm Assessment and Plan - Assessment and Plan (Free Text) Assessment: Patient is a 37 year old male with a PMH of cervical radiculopathy w/ herniated disc, cervical spondylosis w/ myelopathy, thoracic spondylosis and depression under hospital management for acute delirium. Currently suspect delirium 2/2 to chronic opiate usage. Patient is lethargic and altered today. AAOx1 today. Continue to monitor on the floor. Plan: Acute Delerium 2/2 Chronic Opiate Use -continues to be lethargic and drowsy; AAOx1 -AMS likely 2/2 opiates, benzos which have extended half life. -Psych recs appreciated, decrease seroquel dose and decrease ativan dose. Patient lacks capacity. -Blood cx negative x2 -history of chronic back pain with multiple cervical/thoracic laminectomies with terminal clerk opiate use -unlikely infectious metabolic etiology at this time given afebrile, WBC WNL and electrolytes WNL -drug screen in ED was positive for opiates, methadone and benzos; meds are confirmed as being prescribed -holding home pain meds to avoid further worsening of delirium -moderate fall risk precautions -urine culture shows multiple species, possible contamination -blood culture negative thus far -Head CT on 11/06: no acute intracranial pathology -on seroquel, ativan prn, haloperidol prn -per PT, refusing to participate in PT -currently on AVASYS for monitoring -Psych on consult, Dr. Lynne -Neuro signed off case Autoimmune thyroiditis -Elevated T4 with decreased TSH -on propranolol and methimazole -Endo on consult, Dr. Mccauley Hypertension - improving -BP today is 142/100 -c/w lisinopril to 10mg, propanolol 10mg TID, amlodipine 5mg -will monitor Constipation 2/2 Chronic Opiate Use -abdominal xray shows mild retained feces -will continue coalce liquid and miralax at this time -patient continues to be altered, denies abdominal pain -regular diet Hypokalemia - improving -3.5 today -will monitor PPX with Lovenox and pepcid Case was discussed and reviewed with attending, Dr. Greer <Jomar Greer - Last Filed: 11/12/17 18:44> Objective - Vital Signs/Intake and Output Vital Signs (last 24 hours): Temp Pulse Resp BP Pulse Ox 99.2 F 116 H 20 151/106 H 99 11/12/17 14:11 11/12/17 14:11 11/12/17 14:11 11/12/17 18:14 11/12/17 14:11 Intake and Output: 11/12/17 11/12/17 06:59 18:59 Intake Total 0 Balance 0 - Medications Medications: Current Medications Amlodipine Besylate (Norvasc) 10 mg PO DAILY [facility] Docusate Sodium (Colace Liquid) 100 mg PO TID [facility] Last Admin: 11/12/17 18:15 Dose: 100 mg Enoxaparin Sodium (Lovenox) 40 mg SC DAILY [facility] PRN Reason: Protocol Last Admin: 11/12/17 15:33 Dose: 40 mg Famotidine (Pepcid) 20 mg PO 1000 [facility] Last Admin: 11/12/17 09:56 Dose: 20 mg Haloperidol Lactate (Haldol) 4 mg IM Q6 PRN; Protocol PRN Reason: Agitation Lisinopril (Zestril) 10 mg PO DAILY [facility] Last Admin: 11/12/17 09:57 Dose: 10 mg Lorazepam (Ativan) 1 mg PO Q6H PRN; Protocol PRN Reason: Agitation Last Admin: 11/12/17 18:13 Dose: 1 mg Lorazepam (Ativan) 1 mg PO Q12 [facility] PRN Reason: Protocol Last Admin: 11/12/17 09:59 Dose: Not Given Methimazole (Tapazole) 5 mg PO BID [facility] Last Admin: 11/12/17 18:15 Dose: 5 mg Nystatin (Nystop Topical Powder) 0 gm TOP BID [facility] Last Admin: 11/12/17 18:17 Dose: 1 applic Ondansetron HCl (Zofran Inj) 4 mg IVP Q4H PRN PRN Reason: Nausea/Vomiting Polyethylene Glycol (Miralax) 17 gm PO BID [facility] Last Admin: 11/12/17 18:16 Dose: 17 gm Propranolol HCl (Inderal) 10 mg PO TID [facility] Last Admin: 11/12/17 18:14 Dose: 10 mg Quetiapine Fumarate (Seroquel) 25 mg PO HS [facility] PRN Reason: Protocol Last Admin: 11/11/17 22:01 Dose: 25 mg Quetiapine Fumarate (Seroquel) 25 mg PO DAILY [facility] PRN Reason: Protocol - Labs Labs: 11/12/17 07:30 11/12/17 07:30 Attending/Attestation - Attestation I have personally seen and examined this patient.: Yes I have fully participated in the care of the patient.: Yes I have reviewed all pertinent clinical information, including history, physical exam and plan: Yes Notes (Text): 11/12/17 18:42 Attending note; Patient seen and examined with resident. Patient is alert and awake. not in any acute distress. still confused on and off with hallucinations. Patient is a 37 year old male with past medical history that is significant for cervical radiculopathy with herniated disc, cervical spondylosis with myelopathy , thoracic spondylosis, and depression/anxiety presented to the emergency room with confusion and hallucinations. 1. Acute delirium. Polypharmacy.slowly resolving. still with episodes of hallucinations. Most likely mental status changes secondary to polypharmacy and psychiatric issues. No infectious cause identified. UA negative. urine culture, blood culture is negative. Chest x-ray preliminarily did not show any acute infiltrate. Drug screen positive for opiates, methadone, and benzos. Neurology evaluation appreciated. Head CT is negative for acute intracranial pathology. Psychiatry evaluation appreciated. Started on Ativan, Seroquel and Haldol. Adjust medications per psychiatrist. 2.hyperthyroidism; on propranolol and methimazole. endocrinology evaluation appreciated. 3.Hypertension; continue lisinopril , Norvasc and propranolol. PT evaluation appreciated. Subacute rehabilitation versus home recommended. case discussed with mother in detail. Patient has poor motivation to do physical therapy Secondary to fluctuating mental status and agitation. We will follow up with psychiatrist closely. rescue worker evaluation appreciated. Upon discharge patient will follow up with PMD .
[2017-11-12] MEDS: Enoxaparin 40 mg Syringe SC SCH (15:33)
--- NOTE | 2017-11-12 22:25 | CON ---
DATE: 11/12/2017 HISTORY OF PRESENT ILLNESS: The patient is a 37-year-old white male who has been followed by Psychiatry due to likely delirium. I am familiar with patient's presentation and his progress in the unit and I have also reviewed Dr. Issa's notes as well as staff notes. I attempted to interview the patient at bedside this morning, however he is very sedated and would not respond to my questioning, however notes have indicated that patient has been disorganized nonsensical, disoriented and difficult to engage in a meaningful interview. He has been taking his medications. However, he does not have much insight into why he is taking them or his current circumstances. His impulses continue to remain unpredictable. Vital signs reviewed by this provider as well as labs. RELEVANT PSYCHIATRIC MEDICATIONS: Include Haldol 4 mg IM every 6 hours p.r.n. Patient has not received this dose recently, Ativan 1 mg p.o. every 6 hours. This patient is taking one dose yesterday at 09:00 a.m. or 07:00 a.m., 1 mg p.o. every 12 hours scheduled of Ativan, Seroquel 25 mg p.o. b.i.d. and 25 mg at bedtime. IMPRESSION: I agree with Dr. Issa as above. Patient does appear to be delirious and delirium, it can take weeks to resolve even after has been treated. Psychiatry will continue to follow up and monitor his progress at this time. He was sedated at the time of my interview and I will decrease the Seroquel to just 25 mg a.m. and at bedtime hopefully he will be more alert for my visit tomorrow morning. Petey Lynne MD
[2017-11-13 07:56] LABS: BASO # 0.01 K/mm3 (0.0-2.0); BASO % 0.1 % (0.0-3.0); EOS % 0.2 % (1.5-5.0); GRAN # 7.78 (1.4-6.5); GRAN % 65.6 % (50.0-68.0); LYMPH # 3.2 (1.2-3.4); LYMPH % 27.2 % (22.0-35.0); MEAN CELL VOLUME 83.9 fl (80.0-105.0); MEAN CORPUSCULAR HEMOGLOBIN 28.1 pg (25.0-35.0); MEAN CORPUSCULAR HGB CONC 33.5 g/dl (31.0-37.0); MEAN PLATELET VOLUME 9.7 fl (7.0-11.0); MONO # 0.8 (0.1-0.6); MONO % 6.9 % (1.0-6.0); RBC 4.98 10^6/uL (3.5-6.1); RED CELL DISTRIBUTION WIDTH 13.9 % (11.5-14.5); WHITE BLOOD COUNT 11.9 10^3/ul (4.5-11.0)
[2017-11-13 08:27] LABS: ALBUMIN 4.3 g/dL (3.0-4.8); ALT/SGPT 84 U/L (7-56); AST/SGOT 48 U/L (17-59); BLOOD UREA NITROGEN 13 mg/dL (7-21); CALCIUM 9.8 mg/dL (8.4-10.5); GFR NON-AFRICAN AMERICAN > 60
[2017-11-13] MEDS: methIMAzole 5 MG TAB PO SCH ×2 (09:38→17:33)
[2017-11-13] MEDS: Enoxaparin 40 mg Syringe SC SCH (09:40)
[2017-11-13] MEDS: POLYETHYLENE GLYCOL 3350 17 GM/Dose PACKET PO SCH ×2 (09:41→17:32)
[2017-11-13] MEDS: Nystatin 100,000 Units/gm Topical Pow(15 gm) TOP SCH (09:41)
[2017-11-13] MEDS ORDERED: Potassium Chloride 20 mEq ER Tab PO STA (10:43)
--- NOTE | 2017-11-13 11:49 | CP.PCM.PCO ---
Addendum Addendum: Attempted to interview patient again this morning at bedside. He is continues to be sedated and could not be roused despite turning on the lights and repeating his name loudly. Patient did open his eyes a few times but fell back to sleep. I reviewed nursing notes and spoke with nursing. Patient's behavior seems to be less overtly psychotic. There were no reports of active hallucinations on the unit though patient remains disoriented and confused. No agitation noted and he has been complying with medications. I will further decrease Seroquel to 12.5 mg po AMHS to ensure he is more alert for tomorrow's bedside evaluation with Dr. Issa. 11/13/17 11:50
--- NOTE | 2017-11-13 12:21 | CP.PCM.PN ---
<Alfonzo Mclean - Last Filed: 11/13/17 14:12> Subjective - Date & Time of Evaluation Date of Evaluation: 11/13/17 Time of Evaluation: 07:00 - Subjective Subjective: Alfonzo Mclean PGY1 Medicine Progress Note for Dr. Greer Patient was seen and examined at bedside this morning. Patient is a poor historian, could not obtain an appropriate review of systems. Patient is still lethargic and altered. No acute events overnight. Pending evaluation by psych. Patient was febrile overnight, with a Tmax 100.9. Objective - Vital Signs/Intake and Output Vital Signs (last 24 hours): Temp Pulse Resp BP Pulse Ox 98.3 F 93 H 20 130/80 98 11/13/17 06:00 11/13/17 06:00 11/13/17 06:00 11/13/17 09:40 11/13/17 06:00 Intake and Output: 11/13/17 11/13/17 06:59 18:59 Intake Total 540 Balance 540 - Medications Medications: Current Medications Amlodipine Besylate (Norvasc) 10 mg PO DAILY [facility] Last Admin: 11/13/17 09:40 Dose: 10 mg Docusate Sodium (Colace Liquid) 100 mg PO TID [facility] Last Admin: 11/13/17 09:40 Dose: 100 mg Enoxaparin Sodium (Lovenox) 40 mg SC DAILY [facility] PRN Reason: Protocol Last Admin: 11/13/17 09:40 Dose: 40 mg Famotidine (Pepcid) 20 mg PO 1000 [facility] Last Admin: 11/13/17 09:40 Dose: 20 mg Haloperidol Lactate (Haldol) 4 mg IM Q6 PRN; Protocol PRN Reason: Agitation Lisinopril (Zestril) 10 mg PO DAILY [facility] Last Admin: 11/13/17 09:38 Dose: 10 mg Lorazepam (Ativan) 1 mg PO Q6H PRN; Protocol PRN Reason: Agitation Last Admin: 11/12/17 18:13 Dose: 1 mg Lorazepam (Ativan) 1 mg PO Q12 [facility] PRN Reason: Protocol Last Admin: 11/13/17 09:40 Dose: 1 mg Methimazole (Tapazole) 5 mg PO BID [facility] Last Admin: 11/13/17 09:38 Dose: 5 mg Nystatin (Nystop Topical Powder) 0 gm TOP BID [facility] Last Admin: 11/13/17 09:41 Dose: 1 applic Ondansetron HCl (Zofran Inj) 4 mg IVP Q4H PRN PRN Reason: Nausea/Vomiting Polyethylene Glycol (Miralax) 17 gm PO BID [facility] Last Admin: 11/13/17 09:41 Dose: 17 gm Propranolol HCl (Inderal) 10 mg PO TID [facility] Last Admin: 11/13/17 09:39 Dose: 10 mg Quetiapine Fumarate (Seroquel) 12.5 mg PO AMHS [facility] PRN Reason: Protocol - Labs Labs: 11/13/17 07:00 11/13/17 07:00 - Constitutional Appears: Well - Head Exam Head Exam: ATRAUMATIC, NORMAL INSPECTION, NORMOCEPHALIC - Eye Exam Eye Exam: EOMI, Normal appearance, PERRL Pupil Exam: NORMAL ACCOMODATION, PERRL - ENT Exam ENT Exam: Mucous Membranes Moist, Normal Exam - Respiratory Exam Respiratory Exam: Clear to Ausculation Bilateral. absent: Rales, Rhonchi, Wheezes - Cardiovascular Exam Cardiovascular Exam: REGULAR RHYTHM, +S1, +S2. absent: Murmur - GI/Abdominal Exam GI & Abdominal Exam: Soft, Normal Bowel Sounds. absent: Tenderness - Back Exam Back Exam: NORMAL INSPECTION - Neurological Exam Neurological Exam: Awake. absent: Oriented x3 - Skin Skin Exam: Dry, Intact, Normal Color, Warm Assessment and Plan - Assessment and Plan (Free Text) Assessment: Patient is a 37 year old male with a PMH of cervical radiculopathy w/ herniated disc, cervical spondylosis w/ myelopathy, thoracic spondylosis and depression under hospital management for acute delirium. Currently suspect delirium 2/2 to chronic opiate usage. Patient continues to be lethargic and altered. Continue to monitor on the floor. Plan: Acute Delerium 2/2 Chronic Opiate Use -continues to be lethargic and drowsy -AMS likely 2/2 opiates, benzos which have extended half life. -Psych recs appreciated, decrease seroquel dose and decrease ativan dose. Patient lacks capacity. 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 Lynne -Neuro signed off case SIRS criteria met - sepsis rule out -Febrile overnight (Tmax 100.9) -wbc 11.9 -CXR, blood cx, urine cx ordered Hypokalemia -3.2 today -Repleted with Potassium Chloride 40 meq PO -f/u repeat K Hyperthyroidism -c/w propranolol and methimazole -Elevated T4 with decreased TSH -Endo on consult, Dr. Mccauley Constipation 2/2 Chronic Opiate Use -abdominal xray shows mild retained feces -c/w coalce liquid and miralax at this time -patient continues to be altered, denies abdominal pain -regular diet HTN -Normotensive -c/w lisinopril to 10mg, propanolol 10mg TID, amlodipine 5mg -will monitor DVT ppx: Lovenox GI ppx: pepcid Dispo: continue to monitor patient on the floor. Case was discussed and reviewed with attending, Dr. Greer <Jomar Greer - Last Filed: 11/13/17 15:35> Objective - Vital Signs/Intake and Output Vital Signs (last 24 hours): Temp Pulse Resp BP Pulse Ox 98.8 F 102 H 18 130/87 97 11/13/17 15:26 11/13/17 15:26 11/13/17 15:26 11/13/17 15:26 11/13/17 15:26 Intake and Output: 11/13/17 11/13/17 06:59 18:59 Intake Total 540 Balance 540 - Medications Medications: Current Medications Amlodipine Besylate (Norvasc) 10 mg PO DAILY [facility] Last Admin: 11/13/17 09:40 Dose: 10 mg Docusate Sodium (Colace Liquid) 100 mg PO TID [facility] Last Admin: 11/13/17 14:09 Dose: 100 mg Enoxaparin Sodium (Lovenox) 40 mg SC DAILY [facility] PRN Reason: Protocol Last Admin: 11/13/17 09:40 Dose: 40 mg Famotidine (Pepcid) 20 mg PO 1000 [facility] Last Admin: 11/13/17 09:40 Dose: 20 mg Haloperidol Lactate (Haldol) 4 mg IM Q6 PRN; Protocol PRN Reason: Agitation Lisinopril (Zestril) 10 mg PO DAILY [facility] Last Admin: 11/13/17 09:38 Dose: 10 mg Lorazepam (Ativan) 1 mg PO Q6H PRN; Protocol PRN Reason: Agitation Last Admin: 11/12/17 18:13 Dose: 1 mg Lorazepam (Ativan) 1 mg PO Q12 [facility] PRN Reason: Protocol Last Admin: 11/13/17 09:40 Dose: 1 mg Methimazole (Tapazole) 5 mg PO BID [facility] Last Admin: 11/13/17 09:38 Dose: 5 mg Nystatin (Nystop Topical Powder) 0 gm TOP BID [facility] Last Admin: 11/13/17 09:41 Dose: 1 applic Ondansetron HCl (Zofran Inj) 4 mg IVP Q4H PRN PRN Reason: Nausea/Vomiting Polyethylene Glycol (Miralax) 17 gm PO BID [facility] Last Admin: 11/13/17 09:41 Dose: 17 gm Propranolol HCl (Inderal) 10 mg PO TID [facility] Last Admin: 11/13/17 14:09 Dose: 10 mg Quetiapine Fumarate (Seroquel) 12.5 mg PO AMHS [facility] PRN Reason: Protocol - Labs Labs: 11/13/17 07:00 11/13/17 07:00 Attending/Attestation - Attestation I have personally seen and examined this patient.: Yes I have fully participated in the care of the patient.: Yes I have reviewed all pertinent clinical information, including history, physical exam and plan: Yes Notes (Text): Attending note; Patient seen and examined with resident. Patient is alert and awake. patient was sleepy this morning. medication adjusted by psychiatrist. Patient is a 37 year old male with past medical history that is significant for cervical radiculopathy with herniated disc, cervical spondylosis with myelopathy , thoracic spondylosis, and depression/anxiety presented to the emergency room with confusion and hallucinations. 1. Acute delirium. Polypharmacy.slowly resolving. Most likely mental status changes secondary to polypharmacy and psychiatric issues.Psychiatry evaluation appreciated. on Ativan, Seroquel and Haldol. Adjust medications per psychiatrist today. 2.low-grade temperature; repeat chest x-rays negative. Blood culture, urine Culture ordered.No infectious cause identified. previous cultures have been negative. 3.hyperthyroidism; on propranolol and methimazole. endocrinology evaluation appreciated. 4.Hypertension; continue lisinopril , Norvasc and propranolol. PT evaluation appreciated. Subacute rehabilitation versus home recommended. case discussed with mother in detail. Patient has poor motivation to do physical therapy Secondary to fluctuating mental status and agitation. harm reduction worker evaluation appreciated. Upon discharge patient will follow up with PMD .
--- NOTE | 2017-11-13 13:59 | RAD ---
Date of service: 11/13/2017 HISTORY: fever, r/o PNA COMPARISON: Portable chest 11/07/2017. FINDINGS: LUNGS: No active pulmonary disease. PLEURA: No significant pleural effusion identified, no pneumothorax apparent. CARDIOVASCULAR: Normal. OSSEOUS STRUCTURES: No significant abnormalities. VISUALIZED UPPER ABDOMEN: Normal. OTHER FINDINGS: Cervical spinal hardware reiterated incidentally. IMPRESSION: No interval acute cardiopulmonary disease appreciated.
[2017-11-14 06:42] LABS: BASO # 0.01 K/mm3 (0.0-2.0); BASO % 0.1 % (0.0-3.0); EOS % 0.2 % (1.5-5.0); GRAN # 8.62 (1.4-6.5); GRAN % 73.8 % (50.0-68.0); HEMOGLOBIN 14.1 g/dL (14.0-18.0); LYMPH % 17.5 % (22.0-35.0); MEAN CELL VOLUME 83.5 fl (80.0-105.0); MEAN CORPUSCULAR HEMOGLOBIN 28.4 pg (25.0-35.0); MEAN CORPUSCULAR HGB CONC 34.1 g/dl (31.0-37.0); MEAN PLATELET VOLUME 9.7 fl (7.0-11.0); MONO % 8.4 % (1.0-6.0); RBC 4.96 10^6/uL (3.5-6.1); RED CELL DISTRIBUTION WIDTH 13.7 % (11.5-14.5); WHITE BLOOD COUNT 11.7 10^3/ul (4.5-11.0)
[2017-11-14 06:57] LABS: ALBUMIN 4.4 g/dL (3.0-4.8); ALT/SGPT 98 U/L (7-56); AST/SGOT 53 U/L (17-59); BLOOD UREA NITROGEN 12 mg/dL (7-21); CALCIUM 9.6 mg/dL (8.4-10.5); GFR NON-AFRICAN AMERICAN > 60
[2017-11-14 07:43] LABS: T4 17.1 ug/dL (5.5-11.0)
[2017-11-14] MEDS: methIMAzole 5 MG TAB PO SCH ×2 (10:16→18:06)
[2017-11-14] MEDS: POLYETHYLENE GLYCOL 3350 17 GM/Dose PACKET PO SCH ×2 (10:18→18:08)
[2017-11-14] MEDS: Enoxaparin 40 mg Syringe SC SCH (10:18)
[2017-11-14] MEDS: Nystatin 100,000 Units/gm Topical Pow(15 gm) TOP SCH ×2 (10:30→18:34)
--- NOTE | 2017-11-14 12:04 | CP.PCM.PN ---
<Alfonzo Mclean - Last Filed: 11/14/17 17:32> Subjective - Date & Time of Evaluation Date of Evaluation: 11/14/17 Time of Evaluation: 07:00 - Subjective Subjective: Alfonzo Mclean, PGY1 Medicine Progress Note for Dr. Clinton. Patient was seen and examined at bedside this morning. Patient is a poor historian. ROS was not obtained since patient was not answering questions adequately. Patient also appeared to have some hallucinations. No changes overnight. BP was noted to be elevated overnight. SBP ranges in the 130s with highest noted to be 160. Patient No fevers overnight. Objective - Vital Signs/Intake and Output Vital Signs (last 24 hours): Temp Pulse Resp BP Pulse Ox 98.1 F 130 H 20 137/95 H 100 11/14/17 06:00 11/14/17 10:17 11/14/17 06:00 11/14/17 10:17 11/14/17 06:00 Intake and Output: 11/14/17 11/14/17 06:59 18:59 Intake Total 360 Balance 360 - Medications Medications: Current Medications Amlodipine Besylate (Norvasc) 10 mg PO DAILY [facility] Last Admin: 11/14/17 10:17 Dose: Not Given Docusate Sodium (Colace Liquid) 100 mg PO TID [facility] Last Admin: 11/14/17 10:17 Dose: Not Given Enoxaparin Sodium (Lovenox) 40 mg SC DAILY [facility] PRN Reason: Protocol Last Admin: 11/14/17 10:18 Dose: 40 mg Famotidine (Pepcid) 20 mg PO 1000 [facility] Last Admin: 11/14/17 10:16 Dose: Not Given Haloperidol Lactate (Haldol) 4 mg IM Q6 PRN; Protocol PRN Reason: Agitation Ibuprofen (Motrin Tab) 400 mg PO Q6H PRN PRN Reason: Pain, moderate (4-7) Last Admin: 11/13/17 18:40 Dose: 400 mg Lisinopril (Zestril) 10 mg PO BID [facility] Lorazepam (Ativan) 1 mg PO Q6H PRN; Protocol PRN Reason: Agitation Last Admin: 11/12/17 18:13 Dose: 1 mg Lorazepam (Ativan) 1 mg PO Q12 [facility] PRN Reason: Protocol Last Admin: 11/14/17 10:29 Dose: Not Given Methimazole (Tapazole) 5 mg PO BID [facility] Last Admin: 11/14/17 10:16 Dose: Not Given Nystatin (Nystop Topical Powder) 0 gm TOP BID [facility] Last Admin: 11/14/17 10:30 Dose: Not Given Ondansetron HCl (Zofran Inj) 4 mg IVP Q4H PRN PRN Reason: Nausea/Vomiting Polyethylene Glycol (Miralax) 17 gm PO BID [facility] Last Admin: 11/14/17 10:18 Dose: Not Given Propranolol HCl (Inderal) 10 mg PO TID [facility] Last Admin: 11/14/17 10:16 Dose: Not Given Quetiapine Fumarate (Seroquel) 12.5 mg PO AMHS [facility] PRN Reason: Protocol - Labs Labs: 11/14/17 06:15 11/14/17 06:15 - Constitutional Appears: Confused - Head Exam Head Exam: ATRAUMATIC, NORMAL INSPECTION, NORMOCEPHALIC - Eye Exam Eye Exam: EOMI, Normal appearance, PERRL - ENT Exam ENT Exam: Mucous Membranes Moist, Normal Exam - Neck Exam Neck Exam: Full ROM, Normal Inspection. absent: Lymphadenopathy - Respiratory Exam Respiratory Exam: Clear to Ausculation Bilateral, NORMAL BREATHING PATTERN. absent: Rales, Rhonchi, Wheezes - Cardiovascular Exam Cardiovascular Exam: REGULAR RHYTHM, +S1, +S2. absent: Murmur - GI/Abdominal Exam GI & Abdominal Exam: Soft, Normal Bowel Sounds. absent: Tenderness - Extremities Exam Extremities Exam: Full ROM, Normal Capillary Refill, Normal Inspection. absent : Joint Swelling, Pedal Edema - Back Exam Back Exam: NORMAL INSPECTION - Neurological Exam Neurological Exam: Awake. absent: Oriented x3 - Skin Skin Exam: Dry, Intact, Normal Color, Warm Assessment and Plan - Assessment and Plan (Free Text) Assessment: Patient is a 37 year old male with a PMH of cervical radiculopathy w/ herniated disc, cervical spondylosis w/ myelopathy, thoracic spondylosis and depression under hospital management for acute delirium. Currently suspect delirium 2/2 to chronic opiate usage. Patient continues to be lethargic and altered. Continue to monitor on the floor. Plan: Acute Delerium 2/2 Chronic Opiate Use -Patient continues to have episodes of delerium. -AMS likely 2/2 opiates, benzos which have extended half life. -Psych recs appreciated, decrease seroquel dose and decrease ativan dose. Patient lacks capacity. -history of chronic back pain with multiple cervical/thoracic laminectomies with snf opiate use -drug screen in ED was positive for opiates, methadone and benzos; meds are confirmed as being prescribed -moderate fall risk precautions -blood culture negative thus far -Head CT on 11/06: no acute intracranial pathology -currently on AVASYS for monitoring -Psych on consult, Dr. Lynne -Neuro signed off case SIRS criteria met - sepsis rule out -No fevers overnight. -wbc 11.7 -CXR: negative for active cardiopulmonary disease. -f/u blood cx -f/u urine cx -ordered UA HTN -BP elevated 130s SBP with an episode at SBP 160 -adjusted to zestril 20 mg PO BID -c/w propanolol and amlodipine -will monitor Hyperthyroidism -T4 17, TSH .09 on repeat labs (prior T4/TSH was 12.7/.22) -f/u endocrine recommendations -c/w propranolol and methimazole Hypokalemia - resolved -3.7 -Repleted with Potassium Chloride 40 meq PO Constipation / Chronic Opiate Use -abdominal xray shows mild retained feces -c/w coalce liquid and miralax at this time -patient continues to be altered, denies abdominal pain -regular diet DVT ppx: Lovenox GI ppx: pepcid Dispo: continue to monitor patient on the floor. Case was discussed and reviewed with attending, Dr. Clinton. <Denia Clinton - Last Filed: 11/15/17 17:51> Objective - Vital Signs/Intake and Output Vital Signs (last 24 hours): Temp Pulse Resp BP Pulse Ox 101.6 F H 106 H 18 129/91 H 95 11/15/17 15:09 11/15/17 14:00 11/15/17 14:00 11/15/17 14:00 11/15/17 14:00 - Medications Medications: Current Medications Acetaminophen (Tylenol 325mg Tab) 650 mg PO Q4H PRN PRN Reason: Fever >100.4 F Last Admin: 11/15/17 15:09 Dose: 650 mg Amlodipine Besylate (Norvasc) 10 mg PO DAILY [facility] Last Admin: 11/15/17 10:08 Dose: 10 mg Docusate Sodium (Colace Liquid) 100 mg PO TID [facility] Last Admin: 11/15/17 15:10 Dose: 100 mg Enoxaparin Sodium (Lovenox) 40 mg SC DAILY [facility] PRN Reason: Protocol Last Admin: 11/15/17 10:09 Dose: 40 mg Famotidine (Pepcid) 20 mg PO 1000 [facility] Last Admin: 11/15/17 10:08 Dose: 20 mg Haloperidol Lactate (Haldol) 4 mg IM Q6 PRN; Protocol PRN Reason: Agitation Ibuprofen (Motrin Tab) 400 mg PO Q6H PRN PRN Reason: Pain, moderate (4-7) Last Admin: 11/13/17 18:40 Dose: 400 mg Lisinopril (Zestril) 20 mg PO BID [facility] Last Admin: 11/15/17 10:08 Dose: 20 mg Lorazepam (Ativan) 1 mg PO Q6H PRN; Protocol PRN Reason: Agitation Last Admin: 11/12/17 18:13 Dose: 1 mg Lorazepam (Ativan) 1 mg PO Q12 [facility] PRN Reason: Protocol Last Admin: 11/15/17 10:10 Dose: Not Given Methimazole (Tapazole) 5 mg PO BID [facility] Last Admin: 11/15/17 10:10 Dose: 5 mg Nystatin (Nystop Topical Powder) 0 gm TOP BID [facility] Last Admin: 11/14/17 18:34 Dose: Not Given Ondansetron HCl (Zofran Inj) 4 mg IVP Q4H PRN PRN Reason: Nausea/Vomiting Polyethylene Glycol (Miralax) 17 gm PO BID [facility] Last Admin: 11/15/17 10:09 Dose: 17 gm Propranolol HCl (Inderal) 10 mg PO TID [facility] Last Admin: 11/15/17 15:10 Dose: 10 mg Quetiapine Fumarate (Seroquel) 12.5 mg PO [facility] PRN; Protocol PRN Reason: disorganized thoughts/psychosi - Labs Labs: 11/15/17 06:15 11/15/17 06:15 Attending/Attestation - Attestation I have personally seen and examined this patient.: Yes I have fully participated in the care of the patient.: Yes I have reviewed all pertinent clinical information, including history, physical exam and plan: Yes Notes (Text): Patient seen and examined by me at 10:25AM on 11/14/17 with resident. Case including HPI, physical exam, and assessment and plan discussed with resident. Agree with above with following additions/corrections. Patient is a 37 year old male with past medical history that is significant for cervical radiculopathy with herniated disc, cervical spondylosis with myelopathy , thoracic spondylosis, and depression that presented to the emergency room with visual hallucinations. Patient was hallucinations. Patient not answering questions appropriately. Unable to obtain review of systems from patient. Patient is afebrile. No acute issues overnight per patient's nurse. Physical exam: General: Awake and alert lying in bed in no acute distress HEENT: Normocephalic atraumatic. Pupils equal reactive. No scleral icterus. Oropharynx is pink and moist. Poor dentition. Neck is supple. Cardiovascular: Normal rhythm. Normal S1, S2. No murmurs, rubs, or gallops appreciated Pulmonary: Normal respiratory effort. Auscultating anteriorly as patient would not sit up. No rhonchi, rales or wheezing appreciated. Gastrointestinal: Soft, nondistended. Nontender. Positive bowel sounds all 4 quadrants, no guarding. Musculoskeletal: Moves all extremities, no calf tenderness, no edema appreciated. Central nervous system: Awake and alert. Hallucinating. Dermatologic: Skin warm and dry. Positive well healed scar on back. Assessment and plan: Patient is a 37 year old male with past medical history that is significant for cervical radiculopathy with herniated disc, cervical spondylosis with myelopathy, thoracic spondylosis, and depression that presented to the emergency room with visual hallucinations. 1. Acute delirium. Likely secondary to chronic opioid use and polypharmacy. Still with hallucinations. Urine culture with probable contamination. Blood culture with no growth. Repeat urine and blood cultures ordered. Chest x-ray on 11/13/2017 shows no interval cardiopulmonary disease appreciated. Psychiatrist following, recommendations appreciated. Continue scheduled Ativan 1 mg by mouth every 12 hours. Continue Seroquel. Continue Haldol and Ativan and is needed. Continue Avasys monitoring. Continue supportive care. 2. Low-grade temperature. Chest x-ray shows no interval cardiopulmonary disease. Blood and urine cultures pending. Patient one isolated elevated temp. No infectious cause identified thus far. Continue to monitor. 3. Leukocytosis. May be reactive. No signs of infection identified. Continue to monitor. 4. Hyperthyroidism. Endocrinology following, recommendations appreciated. Continue propranolol and methimazole. 5. Essential hypertension. Continue lisinopril, Norvasc, and propanolol. 6. Constipation. Continue Colace and MiraLAX. 7. Hypokalemia. Resolved. Continue to monitor.
--- NOTE | 2017-11-14 12:26 | CP.PCM.PN ---
Subjective - Date & Time of Evaluation Date of Evaluation: 11/14/17 Time of Evaluation: 12:11 - Subjective Subjective: PGY 1 Progress Note for: Dr. Mccauley Pt was seen and examined this morning at bedside. Pt denies any symptoms of tachycardia, tremors, restlessness, diarrhea, palpitations or weight loss. He denies any acute symptoms at this time. Objective - Vital Signs/Intake and Output Vital Signs (last 24 hours): Temp Pulse Resp BP Pulse Ox 98.1 F 130 H 20 137/95 H 100 11/14/17 06:00 11/14/17 10:17 11/14/17 06:00 11/14/17 10:17 11/14/17 06:00 Intake and Output: 11/14/17 11/14/17 06:59 18:59 Intake Total 360 Balance 360 - Medications Medications: Current Medications Amlodipine Besylate (Norvasc) 10 mg PO DAILY [facility] Last Admin: 11/14/17 10:17 Dose: Not Given Docusate Sodium (Colace Liquid) 100 mg PO TID [facility] Last Admin: 11/14/17 10:17 Dose: Not Given Enoxaparin Sodium (Lovenox) 40 mg SC DAILY [facility] PRN Reason: Protocol Last Admin: 11/14/17 10:18 Dose: 40 mg Famotidine (Pepcid) 20 mg PO 1000 [facility] Last Admin: 11/14/17 10:16 Dose: Not Given Haloperidol Lactate (Haldol) 4 mg IM Q6 PRN; Protocol PRN Reason: Agitation Ibuprofen (Motrin Tab) 400 mg PO Q6H PRN PRN Reason: Pain, moderate (4-7) Last Admin: 11/13/17 18:40 Dose: 400 mg Lisinopril (Zestril) 10 mg PO BID [facility] Lorazepam (Ativan) 1 mg PO Q6H PRN; Protocol PRN Reason: Agitation Last Admin: 11/12/17 18:13 Dose: 1 mg Lorazepam (Ativan) 1 mg PO Q12 [facility] PRN Reason: Protocol Last Admin: 11/14/17 10:29 Dose: Not Given Methimazole (Tapazole) 5 mg PO BID [facility] Last Admin: 11/14/17 10:16 Dose: Not Given Nystatin (Nystop Topical Powder) 0 gm TOP BID [facility] Last Admin: 09/10/18 10:30 Dose: Not Given Ondansetron HCl (Zofran Inj) 4 mg IVP Q4H PRN PRN Reason: Nausea/Vomiting Polyethylene Glycol (Miralax) 17 gm PO BID [facility] Last Admin: 11/14/17 10:18 Dose: Not Given Propranolol HCl (Inderal) 10 mg PO TID [facility] Last Admin: 11/14/17 10:16 Dose: Not Given Quetiapine Fumarate (Seroquel) 12.5 mg PO AMHS [facility] PRN Reason: Protocol - Labs Labs: 11/14/17 06:15 11/14/17 06:15 Assessment and Plan - Assessment and Plan (Free Text) Assessment: Pt is a 37 yo M with pmhx of cervical radiculopathy w/herniated disk, cervical spondylosis w/ myelopathy and depression who we are seeing for newly diagnosed hyperthyroidism. Pt is currently on methimazole 5 BID, we will continue the current plan and continue to follow his thyroid studies, titrating the dosage of medication as needed.
--- NOTE | 2017-11-14 19:09 | PN ---
DATE: 11/14/2017 FOLLOWUP NOTE SUBJECTIVE: The patient was followed up today. The patient presented to be sedated. When the patient opened his eyes, talking nonsense. The patient is talking that he is in [place] today. The patient is giving only one-word answers. The patient also presented to be actively hallucinating, responding to internal stimuli. Vital signs seems to be stable. Temperature 97.6, pulse is 111, blood pressure is better controlled 128/89, respirations 20, oxygen saturation is 95. Medications reviewed. The patient is on Norvasc, but the patient was refusing to take Norvasc. The patient is on Colace, Lovenox, Pepcid. The patient refused to take Pepcid. The patient is on Haldol as needed; Motrin; Zestril; Ativan 1 mg p.o. every 6 hours p.r.n., last dose was 11/12/2017; Ativan 1 mg p.o. every 12 hours. The patient was too sedated to get Ativan. The patient is on Tapazole, nystatin, Zofran, MiraLax, propranolol, Seroquel 12.5 mg twice a day, which was decreased by Dr. Lynne, agree with that. Labs reviewed. The patient still has leukocytosis 11.7 today. Chemistry reviewed. T4 today 17.1 and TSH is 0.09, which is low. Microbiology reviewed. No growth. MENTAL STATUS EXAMINATION: The patient presented to be sedated. When wakes up, talks nonsense. The patient is disoriented, things that he is in [place]. Intermittent eye contact. When the patient opened his eyes, he is actively hallucinating and responding to internal stimuli. Thought process is disorganized as well as his speech. Thought content, patient is psychotic, disorganized. Insight and judgment seems to be impaired. Impulses are unpredictable. IMPRESSION: The patient is still in delirium stage. Differential diagnosis is polypharmacy, also the patient has hyperthyroidism. The patient still has leukocytosis as well as multifactorial delirium, but it is hypoactive. PLAN: Continue current medication. Continue current management. The patient does not have a capacity to sign himself into the Psychiatric Inpatient Unit. The patient requires further hospitalization and stabilization, family involvement. Collaterals need to be obtained from the family. Thank you very much for letting me participate in the care of your patient. Taylor Issa MD
[2017-11-15 07:11] LABS: BASO # 0.01 K/mm3 (0.0-2.0); BASO % 0.1 % (0.0-3.0); EOS % 0.1 % (1.5-5.0); GRAN # 10.66 (1.4-6.5); GRAN % 75.4 % (50.0-68.0); HEMOGLOBIN 13.6 g/dL (14.0-18.0); LYMPH # 2.5 (1.2-3.4); LYMPH % 17.4 % (22.0-35.0); MEAN CELL VOLUME 85.1 fl (80.0-105.0); MEAN CORPUSCULAR HEMOGLOBIN 28.2 pg (25.0-35.0); MEAN CORPUSCULAR HGB CONC 33.2 g/dl (31.0-37.0); RBC 4.82 10^6/uL (3.5-6.1); WHITE BLOOD COUNT 14.1 10^3/ul (4.5-11.0)
[2017-11-15 07:12] LABS: ALBUMIN 4.2 g/dL (3.0-4.8); ALT/SGPT 152 U/L (7-56); AST/SGOT 68 U/L (17-59); BLOOD UREA NITROGEN 18 mg/dL (7-21); CALCIUM 9.7 mg/dL (8.4-10.5); GFR NON-AFRICAN AMERICAN > 60
[2017-11-15] MEDS: POLYETHYLENE GLYCOL 3350 17 GM/Dose PACKET PO SCH ×2 (10:09→19:45)
[2017-11-15] MEDS: Enoxaparin 40 mg Syringe SC SCH (10:09)
[2017-11-15] MEDS: methIMAzole 5 MG TAB PO SCH ×2 (10:10→19:45)
[2017-11-15 15:22] LABS: TSI <89 % baseline (<140)
[2017-11-15 16:26] LABS: URINE BILIRUBIN NEGATIVE (NEGATIVE); URINE BLOOD NEGATIVE (NEGATIVE); URINE GLUCOSE (UA) NEGATIVE (NEGATIVE); URINE LEUKOCYTE ESTERASE NEGATIVE Leu/uL (NEGATIVE); URINE PROTEIN TRACE mg/dL (<30 mg/dL)
[2017-11-15 16:27] LABS: URINE APPEARANCE CLEAR (CLEAR); URINE COLOR DARK YELLOW (YELLOW)
[2017-11-15 16:53] LABS: URINE BACTERIA NEG (NEG); URINE RBC 0 - 2 /hpf (0-2); URINE WBC NEGATIVE /hpf (0-6)
[2017-11-15] MEDS: Nystatin 100,000 Units/gm Topical Pow(15 gm) TOP SCH (19:45)
--- NOTE | 2017-11-15 20:28 | CARD ---
APPROVED REPORT Date of service: 11/15/2017 EKG Measurement Heart [id number] ID [id number] <Conclusion> Sinus tachycardia Nonspecific ST abnormality Abnormal ECG
--- NOTE | 2017-11-15 21:38 | CP.PCM.PN ---
<Alfonzo Mclean - Last Filed: 11/15/17 21:31> Subjective - Date & Time of Evaluation Date of Evaluation: 11/15/17 Time of Evaluation: 07:00 - Subjective Subjective: Alfonzo Mclean PGY1 Medicine Progress Note for Dr. Clinton Patient seen and examined at bedside this morning. Patient is AAOx2 to person and time. Patient is lethargic at times and not answering to ROS questions appropriately. No overnight changes. Vital signs stable. Objective - Vital Signs/Intake and Output Vital Signs (last 24 hours): Temp Pulse Resp BP Pulse Ox 98.7 F 94 H 18 115/76 95 11/15/17 16:30 11/15/17 18:00 11/15/17 14:00 11/15/17 18:00 11/15/17 14:00 - Medications Medications: Current Medications Acetaminophen (Tylenol 325mg Tab) 650 mg PO Q4H PRN PRN Reason: Fever >100.4 F Last Admin: 11/15/17 15:09 Dose: 650 mg Amlodipine Besylate (Norvasc) 10 mg PO DAILY [facility] Last Admin: 11/15/17 10:08 Dose: 10 mg Docusate Sodium (Colace Liquid) 100 mg PO TID [facility] Last Admin: 11/15/17 19:45 Dose: Not Given Doxycycline Hyclate (Doryx) 100 mg PO Q12 [facility] PRN Reason: Protocol Stop: 11/24/17 22:01 Enoxaparin Sodium (Lovenox) 40 mg SC DAILY [facility] PRN Reason: Protocol Last Admin: 11/15/17 10:09 Dose: 40 mg Famotidine (Pepcid) 20 mg PO 1000 [facility] Last Admin: 11/15/17 10:08 Dose: 20 mg Haloperidol Lactate (Haldol) 4 mg IM Q6 PRN; Protocol PRN Reason: Agitation Meropenem (Merrem Iv 1 Gm Premix) 50 mls @ 100 mls/hr IVPB Q8 [facility] PRN Reason: Protocol Stop: 11/24/17 22:01 Vancomycin HCl (Vancomycin 1gm) 1 gm in 250 mls @ 167 mls/hr IVPB Q12H [facility] PRN Reason: Protocol Stop: 11/24/17 20:31 Acyclovir 750 mg/ Sodium (Chloride) 100 mls @ 100 mls/hr IV Q8 [facility] PRN Reason: Protocol Stop: 11/24/17 22:01 Ibuprofen (Motrin Tab) 400 mg PO Q6H PRN PRN Reason: Pain, moderate (4-7) Last Admin: 11/13/17 18:40 Dose: 400 mg Lisinopril (Zestril) 20 mg PO BID [facility] Last Admin: 11/15/17 10:08 Dose: 20 mg Lorazepam (Ativan) 1 mg PO Q6H PRN; Protocol PRN Reason: Agitation Last Admin: 11/12/17 18:13 Dose: 1 mg Lorazepam (Ativan) 1 mg PO Q12 [facility] PRN Reason: Protocol Last Admin: 11/15/17 10:10 Dose: Not Given Methimazole (Tapazole) 5 mg PO BID [facility] Last Admin: 11/15/17 19:45 Dose: 5 mg Nystatin (Nystop Topical Powder) 0 gm TOP BID [facility] Last Admin: 11/15/17 19:45 Dose: 1 applic Ondansetron HCl (Zofran Inj) 4 mg IVP Q4H PRN PRN Reason: Nausea/Vomiting Polyethylene Glycol (Miralax) 17 gm PO BID [facility] Last Admin: 11/15/17 19:45 Dose: Not Given Propranolol HCl (Inderal) 10 mg PO TID [facility] Last Admin: 11/15/17 19:45 Dose: 10 mg Quetiapine Fumarate (Seroquel) 12.5 mg PO [facility] PRN; Protocol PRN Reason: disorganized thoughts/psychosi - Labs Labs: 11/15/17 06:15 11/15/17 06:15 - Constitutional Appears: Confused - Head Exam Head Exam: ATRAUMATIC, NORMAL INSPECTION, NORMOCEPHALIC - Eye Exam Eye Exam: EOMI, Normal appearance, PERRL - ENT Exam ENT Exam: Mucous Membranes Moist, Normal Exam - Neck Exam Neck Exam: Full ROM, Normal Inspection. absent: Lymphadenopathy - Respiratory Exam Respiratory Exam: Clear to Ausculation Bilateral, NORMAL BREATHING PATTERN. absent: Rales, Rhonchi, Wheezes - Cardiovascular Exam Cardiovascular Exam: REGULAR RHYTHM, +S1, +S2. absent: Murmur - GI/Abdominal Exam GI & Abdominal Exam: Soft, Normal Bowel Sounds. absent: Tenderness - Extremities Exam Extremities Exam: Full ROM, Normal Capillary Refill, Normal Inspection. absent : Joint Swelling, Pedal Edema - Skin Skin Exam: Dry, Intact, Normal Color, Warm Assessment and Plan - Assessment and Plan (Free Text) Assessment: Patient is a 37 year old male with a PMH of cervical radiculopathy w/ herniated disc, cervical spondylosis w/ myelopathy, thoracic spondylosis and depression under hospital management for acute delirium. Currently suspect delirium 2/2 to chronic opiate usage. Patient continues to be lethargic and altered. Continue to monitor on the floor. Plan: Acute Delerium 2/2 Chronic Opiate Use -Patient continues to have episodes of delerium. -AMS likely 2/2 opiates, benzos which have extended half life. -Psych recs appreciated, decrease seroquel dose and decrease ativan dose. Patient lacks capacity. -history of chronic back pain with multiple cervical/thoracic laminectomies with exterminator termite opiate use -drug screen in ED was positive for opiates, methadone and benzos; meds are confirmed as being prescribed -moderate fall risk precautions -blood culture negative thus far -Head CT on 11/06: no acute intracranial pathology -currently on AVASYS for monitoring -Psych on consult, Dr. Lynne -Neuro signed off case Transaminitis - AST/ALT trending upwards; 68/152 - continue to monitor SIRS criteria met - sepsis rule out -wbc 14.1 today from 11.7 with tachycardia -ordered ekg -Blood cx negative x1 -Straight cath to obtain Urine Cx and UA -No fevers overnight. -CXR: negative for active cardiopulmonary disease. HTN -BP normotensive -adjusted to zestril 20 mg PO BID -c/w propanolol and amlodipine -will monitor Hyperthyroidism -T4 17, TSH .09 on repeat labs (prior T4/TSH was 12.7/.22) -f/u endocrine recommendations -c/w propranolol and methimazole Hypokalemia - resolved -3.7 -Repleted with Potassium Chloride 40 meq PO Constipation 2/2 Chronic Opiate Use -abdominal xray shows mild retained feces -c/w coalce liquid and miralax at this time -patient continues to be altered, denies abdominal pain -regular diet DVT ppx: Lovenox GI ppx: pepcid Dispo: continue to monitor patient on the floor. Case was discussed and reviewed with attending, Dr. Clinton. <Denia Clinton - Last Filed: 11/16/17 17:00> Objective - Vital Signs/Intake and Output Vital Signs (last 24 hours): Temp Pulse Resp BP Pulse Ox 97.4 F L 97 H 20 142/90 99 11/16/17 06:00 11/16/17 13:51 11/16/17 06:00 11/16/17 13:51 11/16/17 06:00 Intake and Output: 11/16/17 11/16/17 06:59 18:59 Intake Total 120 Balance 120 - Medications Medications: Current Medications Acetaminophen (Tylenol 325mg Tab) 650 mg PO Q4H PRN PRN Reason: Fever >100.4 F Last Admin: 11/15/17 15:09 Dose: 650 mg Amlodipine Besylate (Norvasc) 10 mg PO DAILY [facility] Last Admin: 11/16/17 10:31 Dose: 10 mg Docusate Sodium (Colace Liquid) 100 mg PO TID [facility] Last Admin: 11/16/17 13:51 Dose: 100 mg Doxycycline Hyclate (Doryx) 100 mg PO Q12 [facility] PRN Reason: Protocol Stop: 11/24/17 22:01 Last Admin: 11/16/17 10:30 Dose: 100 mg Enoxaparin Sodium (Lovenox) 40 mg SC DAILY [facility] PRN Reason: Protocol Last Admin: 11/16/17 10:31 Dose: 40 mg Famotidine (Pepcid) 20 mg PO 1000 [facility] Last Admin: 11/16/17 10:31 Dose: 20 mg Haloperidol Lactate (Haldol) 4 mg IM Q6 PRN; Protocol PRN Reason: Agitation Meropenem (Merrem Iv 1 Gm Premix) 50 mls @ 100 mls/hr IVPB Q8 [facility] PRN Reason: Protocol Stop: 11/24/17 22:01 Last Admin: 11/16/17 13:51 Dose: 100 mls/hr Vancomycin HCl (Vancomycin 1gm) 1 gm in 250 mls @ 167 mls/hr IVPB Q12H [facility] PRN Reason: Protocol Stop: 11/24/17 20:31 Last Admin: 11/16/17 08:24 Dose: 167 mls/hr Acyclovir 750 mg/ Sodium (Chloride) 100 mls @ 100 mls/hr IV Q8 [facility] PRN Reason: Protocol Stop: 11/24/17 22:01 Last Admin: 11/16/17 13:29 Dose: 100 mls/hr Ibuprofen (Motrin Tab) 400 mg PO Q6H PRN PRN Reason: Pain, moderate (4-7) Last Admin: 11/13/17 18:40 Dose: 400 mg Lisinopril (Zestril) 20 mg PO BID [facility] Last Admin: 11/16/17 10:34 Dose: 20 mg Lorazepam (Ativan) 1 mg PO Q6H PRN; Protocol PRN Reason: Agitation Last Admin: 11/12/17 18:13 Dose: 1 mg Lorazepam (Ativan) 1 mg PO Q12 [facility] PRN Reason: Protocol Last Admin: 11/16/17 10:29 Dose: 1 mg Methimazole (Tapazole) 10 mg PO TID [facility] Last Admin: 11/16/17 13:53 Dose: 10 mg Nystatin (Nystop Topical Powder) 0 gm TOP BID [facility] Last Admin: 11/16/17 10:36 Dose: 1 applic Ondansetron HCl (Zofran Inj) 4 mg IVP Q4H PRN PRN Reason: Nausea/Vomiting Oxycodone/Acetaminophen (Percocet 5/325 Mg Tab) 1 tab PO Q6H PRN PRN Reason: Pain, severe (8-10) Stop: 11/19/17 16:58 Polyethylene Glycol (Miralax) 17 gm PO BID PRN PRN Reason: Constipation Propranolol HCl (Inderal) 10 mg PO TID [facility] Last Admin: 11/16/17 13:51 Dose: 10 mg Quetiapine Fumarate (Seroquel) 12.5 mg PO [facility] PRN; Protocol PRN Reason: disorganized thoughts/psychosi - Labs Labs: 11/16/17 06:30 11/16/17 06:30 Attending/Attestation - Attestation I have personally seen and examined this patient.: Yes I have fully participated in the care of the patient.: Yes I have reviewed all pertinent clinical information, including history, physical exam and plan: Yes Notes (Text): Patient seen and examined by me at 11:25AM with resident on 11/15/17 . Case including HPI, physical exam, and assessment and plan discussed with resident. Agree with above with following additions/corrections. Patient is a 37 year old male with past medical history that is significant for cervical radiculopathy with herniated disc, cervical spondylosis with myelopathy , thoracic spondylosis, and depression that presented to the emergency room with visual hallucinations. Patient is AAOx2 today. Patient still not answering all questions appropriately. Patient states that he is feeling ok. Denies any pain. No chest pain. No shortness of breath. No nausea, vomiting, or abdominal pain. Patient did have a bowel movement. Unable to obtain any other review of systems from patient. No acute issues overnight per patient's nurse. Physical exam: General: Awake and alert sitting up in bed in no acute distress HEENT: Normocephalic atraumatic. Pupils equal reactive. No scleral icterus. Oropharynx is pink and moist. Poor dentition. Neck is supple. Cardiovascular: Normal rhythm. Normal S1, S2. No murmurs, rubs, or gallops appreciated Pulmonary: Normal respiratory effort. No rhonchi, rales or wheezing appreciated. Gastrointestinal: Soft, nondistended. Mild generalized tenderness with deep palpation. Positive bowel sounds all 4 quadrants, no guarding. Musculoskeletal: Moves all extremities, no calf tenderness, no edema appreciated. Central nervous system: Awake and alert. Oriented x2 today. Dermatologic: Skin warm and dry. Positive well healed scar on back. Assessment and plan: Patient is a 37 year old male with past medical history that is significant for cervical radiculopathy with herniated disc, cervical spondylosis with myelopathy, thoracic spondylosis, and depression that presented to the emergency room with visual hallucinations. 1. Fever. Unclear etiology. Blood cultures negative. Urinalysis negative for infection. Chest xray with no active disease. Will order CT abd/pelvis to rule out infection. Will order bilateral lower extremity venous dopplers to rule out DVT. Will consult ID. 2. Acute delirium. Likely secondary to chronic opioid use and polypharmacy. May be secondary to unlcear underlying infection. Waxes and wanes. Urinalysis negative for infection. Blood culture with no growth. Repeat urine and blood cultures with no growth. Chest x-ray on 11/13/2017 shows no interval cardiopulmonary disease appreciated. Psychiatrist following, recommendations appreciated. Continue scheduled Ativan 1 mg by mouth every 12 hours. Continue Seroquel. Continue Haldol and Ativan and is needed. Continue Avasys monitoring. Continue supportive care. Follow up CT abd/pelvis. 3. Leukocytosis. May be reactive vs possible underlying infection. Follow up CT abd/pelvis. ID consulted, follow up recommendations. Continue to monitor. 4. Hyperthyroidism. Endocrinology following, recommendations appreciated. Continue propranolol and methimazole. 5. Essential hypertension. Continue lisinopril, Norvasc, and propanolol. 6. Constipation. Continue Colace and MiraLAX. Patient is having bowel movement. 7. Hypokalemia. Resolved. Continue to monitor.
[2017-11-15] MEDS: Vancomycin 1gm in NS 250ml 1 GM/250 ML BAG IVPB SCH (23:25)
[2017-11-15] MEDS: Meropenem IV 1 gm in NS 50 ML IVPB SCH (23:25)
[2017-11-16] MEDS: Meropenem IV 1 gm in NS 50 ML IVPB SCH ×3 (05:49→21:26)
[2017-11-16] MEDS ORDERED: Barium Sulfate Susp 2.1% w/v, 2.0% w/w 450 mL Bottle PO ONE (06:29)
[2017-11-16 07:12] LABS: BASO # 0.01 K/mm3 (0.0-2.0); BASO % 0.1 % (0.0-3.0); EOS % 0.1 % (1.5-5.0); GRAN # 11.35 (1.4-6.5); GRAN % 75.9 % (50.0-68.0); HEMOGLOBIN 13.2 g/dL (14.0-18.0); LYMPH # 2.4 (1.2-3.4); LYMPH % 16.1 % (22.0-35.0); MEAN CELL VOLUME 85.2 fl (80.0-105.0); MEAN CORPUSCULAR HEMOGLOBIN 28.3 pg (25.0-35.0); MEAN CORPUSCULAR HGB CONC 33.2 g/dl (31.0-37.0); MEAN PLATELET VOLUME 10.3 fl (7.0-11.0); MONO # 1.2 (0.1-0.6); MONO % 7.8 % (1.0-6.0); RBC 4.66 10^6/uL (3.5-6.1); WHITE BLOOD COUNT 14.9 10^3/ul (4.5-11.0)
[2017-11-16 07:21] LABS: ALBUMIN 4.1 g/dL (3.0-4.8); ALT/SGPT 180 U/L (7-56); AST/SGOT 67 U/L (17-59); BLOOD UREA NITROGEN 17 mg/dL (7-21); CALCIUM 9.4 mg/dL (8.4-10.5); GFR NON-AFRICAN AMERICAN > 60
--- NOTE | 2017-11-16 07:41 | CON ---
DATE: 11/15/2017 LOCATION: The patient is seen in room 563, bed 1. CHIEF COMPLAINT: Infectious Disease consultation requested because of a fever. HISTORY OF PRESENT ILLNESS: This is a 37-year-old male with the history of gastroesophageal reflux disease and orthopedic surgeries in the past, history of back pain, cervical and thoracic radiculopathy and history of depression who was admitted through the emergency room on 11/06/2017 and was seen by in the emergency room who stated the patient was confused and patient's mother had stated the patient had been confused and been hallucinating, this was on the 2nd. Patient had been afebrile. On the 11/09/2017, patient had a temperature of 100.4 and again on 11/12/2017, patient had temperature of 100.9, today had temperature of 101.6. Infectious Disease consultation requested. Patient has been noted throughout the notes that the patient had been confused on and off. At this time, he knows who he is, he knows he is in the hospital, although he cannot name the hospital. He states he has been having headaches. He did have the headaches at home. He has been having headaches on along, it is the matter of fact on admission in the emergency room. He had told ER staff that he was having headaches. He had a CAT scan of the head on the admission, which was reported to be negative, read by Dr. Ailyn Mccrary. He denies any chest pain, shortness of breath or cough. No abdominal pain or diarrhea although he is sitting in a pool of stool, watery diarrhea at this time and again his mental status is to be questioned. PAST MEDICAL HISTORY: As stated with cervical radiculopathy, herniated disc myelopathy, depression. PAST SURGICAL HISTORY: Significant for orthopedic surgery. ALLERGIES: PATIENT IS ALLERGIC TO ERYTHROMYCIN, AND DULOXETINE. PHYSICAL EXAMINATION: GENERAL: He is in bed, appearing disheveled, confused. VITAL SIGNS: Temperature of 101.6, blood pressure is 129/90, heart rate of 106, respiratory rate of 20. Patient is oxygenating well on room air. HEENT: Unremarkable. NECK: Supple. LUNGS: Have decreased breath sounds. HEART: Normal S1, S2. ABDOMEN: Soft, nontender. LABORATORY EXAMINATION: Reveals a white count of 11,900, hemoglobin of 14, patient's white count was up to 13,000. Chemistries reveals a BUN of 18, creatinine of 0.8. Urinalysis is noted. Toxicology reveals the patient's opiates screen is positive, methadone screen is positive, benzodiazepine screen is positive. Microbiology reveals the blood cultures are negative. Urine cultures, mixed organism. DIAGNOSTIC DATA: Imaging shows the patient had a chest x-ray on the 9 and no active disease. Patient also had chest x-ray on the 3rd, day after admission, which was reported as no active disease. Patient had abdominal x-rays, which reveals retained feces, as the patient had complained of constipation. Patient had a CAT scan of the head, which was negative. Consultations are reviewed. Dr. Levy, neurologist who saw the patient on the 11/09/2017 and states that the patient is a 37-year-old with history of depression, multiple neck surgeries, brought in by his mother because of agitation, reported visual hallucination, taken oxycodone, methadone and with negative CAT scan, had suspect symptoms to polypharmacy, hyperthyroidism, psychiatric disorder and acute change in mental status. Recommend to stop the polypharmacy in Dr. Levy's note and Neurology signed off at that time, that was on the 11/09/2017. Patient did have a temperature of 100.4 on 11/09/2017. Dr. Vazquez's note is reviewed. Dr. Lynne's note is reviewed. ASSESSMENT AND PLAN: This is a 37-year-old male with cervical adenopathy and herniated disc, admitted with change in mental status, has been having intermittent fevers, intermittent leukocytosis and confusion, #1 is systemic inflammatory response syndrome, must rule out central nervous system causes such as herpes encephalitis and viral meningitis. I doubt viral meningitis, however; and must rule out aspiration pneumonia versus gastrointestinal pathology with elevated liver function tests. We will start the patient on vancomycin, meropenem, acyclovir and doxycycline. Pending repeat blood cultures, urine cultures, sputum cultures, stool for Clostridium difficile. We will request an human immunodeficiency virus fourth generation and the patient was a polysubstance abuse, hepatitis panel. Recommend an MRI of the head. I also recommend a spinal tap and CAT scan of the chest and abdomen and pelvis. We will make further recommendations upon the availability of MRI of the head and spinal tap evaluation. We will make further recommendations. Arias Aviles MD [facility] # [id number]
--- NOTE | 2017-11-16 08:17 | PN ---
DATE: 11/15/2017 SUBJECTIVE: The patient was followed up. The patient still presents to be disorganized. The patient is lethargic, was able to open his eyes, but close them back again. The patient was not having meaningful conversation today. No improvement with the patient's presentation. PHYSICAL EXAMINATION: VITAL SIGNS: Seems to be stable, but temperature is low grade fever of 101, pulse is 108, blood pressure 117/64, respirations 18, oxygen saturation is 96%. MEDICATIONS: Reviewed. In regards of the psychotropic medications, this designer/writer will hold Seroquel and we will give medication only as needed for psychosis. LABORATORY DATA: Labs reviewed. WBC cells climbing up 14.1 today. Coagulation reviewed. Chemistry reviewed. Toxicology reviewed. In regards of the chemistry, T4 is 17.1 and TSH is 0.09. MENTAL STATUS EXAMINATION: Was not able to assess. The patient is very confused, opening his eyes and closing them back again, mumbling something incoherently. IMPRESSION: Most likely, the patient is in hypoactive delirium. PLAN: Continue current management. This designer/writer switched Seroquel to as-needed only. We will follow up on this patient every other day. Should you have any questions, give me a call back. Thank you very much. Taylor Issa MD
[2017-11-16] MEDS: Vancomycin 1gm in NS 250ml 1 GM/250 ML BAG IVPB SCH ×2 (08:24→23:16)
--- NOTE | 2017-11-16 09:05 | CP.PCM.PN ---
<Alfonzo Mclean - Last Filed: 11/16/17 14:33> Subjective - Date & Time of Evaluation Date of Evaluation: 11/16/17 Time of Evaluation: 07:00 - Subjective Subjective: Alfonzo Mclean PGY1 Medicine Progress Note for Dr. Clinton Patient was seen and examined at bedside this morning. Patient was AAOx2 (person , time). Patient has ongoing pain in the abdomen. He is a poor historian, could not obtain an appropriate ROS. No fevers overnight. Last fever (Temp 101.6) was yesterday afternoon at 3 pm. As per nursing staff, patient had large bowel movement yesterday. Objective - Vital Signs/Intake and Output Vital Signs (last 24 hours): Temp Pulse Resp BP Pulse Ox 97.6 F 81 20 120/78 97 11/15/17 22:37 11/15/17 22:37 11/15/17 22:37 11/15/17 22:37 11/15/17 22:37 Intake and Output: 11/16/17 11/16/17 06:59 18:59 Intake Total 120 Balance 120 - Medications Medications: Current Medications Acetaminophen (Tylenol 325mg Tab) 650 mg PO Q4H PRN PRN Reason: Fever >100.4 F Last Admin: 11/15/17 15:09 Dose: 650 mg Amlodipine Besylate (Norvasc) 10 mg PO DAILY [facility] Last Admin: 11/15/17 10:08 Dose: 10 mg Docusate Sodium (Colace Liquid) 100 mg PO TID [facility] Last Admin: 11/15/17 19:45 Dose: Not Given Doxycycline Hyclate (Doryx) 100 mg PO Q12 [facility] PRN Reason: Protocol Stop: 11/24/17 22:01 Last Admin: 11/15/17 23:25 Dose: Not Given Enoxaparin Sodium (Lovenox) 40 mg SC DAILY [facility] PRN Reason: Protocol Last Admin: 11/15/17 10:09 Dose: 40 mg Famotidine (Pepcid) 20 mg PO 1000 [facility] Last Admin: 11/15/17 10:08 Dose: 20 mg Haloperidol Lactate (Haldol) 4 mg IM Q6 PRN; Protocol PRN Reason: Agitation Meropenem (Merrem Iv 1 Gm Premix) 50 mls @ 100 mls/hr IVPB Q8 [facility] PRN Reason: Protocol Stop: 11/24/17 22:01 Last Admin: 11/16/17 05:49 Dose: 100 mls/hr Vancomycin HCl (Vancomycin 1gm) 1 gm in 250 mls @ 167 mls/hr IVPB Q12H [facility] PRN Reason: Protocol Stop: 11/24/17 20:31 Last Admin: 11/16/17 08:24 Dose: 167 mls/hr Acyclovir 750 mg/ Sodium (Chloride) 100 mls @ 100 mls/hr IV Q8 [facility] PRN Reason: Protocol Stop: 11/24/17 22:01 Last Admin: 11/16/17 05:45 Dose: 100 mls/hr Ibuprofen (Motrin Tab) 400 mg PO Q6H PRN PRN Reason: Pain, moderate (4-7) Last Admin: 11/13/17 18:40 Dose: 400 mg Lisinopril (Zestril) 20 mg PO BID [facility] Last Admin: 11/15/17 10:08 Dose: 20 mg Lorazepam (Ativan) 1 mg PO Q6H PRN; Protocol PRN Reason: Agitation Last Admin: 11/12/17 18:13 Dose: 1 mg Lorazepam (Ativan) 1 mg PO Q12 [facility] PRN Reason: Protocol Last Admin: 11/15/17 23:25 Dose: Not Given Methimazole (Tapazole) 10 mg PO TID [facility] Nystatin (Nystop Topical Powder) 0 gm TOP BID [facility] Last Admin: 11/15/17 19:45 Dose: 1 applic Ondansetron HCl (Zofran Inj) 4 mg IVP Q4H PRN PRN Reason: Nausea/Vomiting Polyethylene Glycol (Miralax) 17 gm PO BID [facility] Last Admin: 11/15/17 19:45 Dose: Not Given Propranolol HCl (Inderal) 10 mg PO TID [facility] Last Admin: 11/15/17 19:45 Dose: 10 mg Quetiapine Fumarate (Seroquel) 12.5 mg PO [facility] PRN; Protocol PRN Reason: disorganized thoughts/psychosi - Labs Labs: 11/16/17 06:30 11/16/17 06:30 - Constitutional Appears: Well, No Acute Distress, Confused - Head Exam Head Exam: ATRAUMATIC, NORMAL INSPECTION, NORMOCEPHALIC - Eye Exam Eye Exam: EOMI, Normal appearance, PERRL Pupil Exam: NORMAL ACCOMODATION, PERRL - ENT Exam ENT Exam: Mucous Membranes Moist, Normal Exam - Neck Exam Neck Exam: Full ROM, Normal Inspection. absent: Lymphadenopathy - Respiratory Exam Respiratory Exam: Clear to Ausculation Bilateral, NORMAL BREATHING PATTERN. absent: Rales, Rhonchi, Wheezes - Cardiovascular Exam Cardiovascular Exam: Tachycardia, +S1, +S2. absent: Murmur - GI/Abdominal Exam GI & Abdominal Exam: Soft, Tenderness (Tenderness to deep palpation of abdomen. ), Normal Bowel Sounds. absent: Guarding, Rigid - Extremities Exam Extremities Exam: Full ROM, Normal Capillary Refill, Normal Inspection. absent : Joint Swelling, Pedal Edema - Neurological Exam Neurological Exam: Alert, Awake. absent: Oriented x3 (Oriented x2 (person and time)) - Skin Skin Exam: Dry, Intact, Normal Color, Warm Assessment and Plan - Assessment and Plan (Free Text) Assessment: Patient is a 37 year old male with a PMHx of cervical radiculopathy w/ herniated disc, cervical spondylosis w/ myelopathy, thoracic spondylosis and depression under hospital management for acute delirium. Currently suspect delirium 2/2 to chronic opiate usage. Patient continues to be lethargic and altered. Continue to monitor on the floor. Plan: Acute Delerium 2/2 Chronic Opiate Use -f/u Brain MRI -AAOx2; spoke to mother, she says that patient is not at his baseline mental status. -Psych recs appreciated. Patient lacks capacity. -AMS likely 2/2 opiates, benzos which have extended half life. -history of chronic back pain with multiple cervical/thoracic laminectomies with penitentiary opiate use -moderate fall risk precautions -blood culture negative thus far -Head CT on 11/06: no acute intracranial pathology -currently on AVASYS for monitoring -Neuro signed off case SIRS criteria met - sepsis rule out -CT Chest/Abd/Pelvis (11/16): no acute intra-abdominal or intra-thoracic findings. Disc degeneration with large osteophytes throughout spine. -Afebrile overnight; as of now, there is still no suspected source -wbc 14.9 today from 14.1 yesterday -US Lower Extremity: prelim reading is negative for DVT -D-dimer negative -Blood cx negative x2 -UA negative -f/u urine cx -EKG (11/15): sinus tachycardia. HR 110. No T wave abnormalities. -CXR (11/13): negative for active cardiopulmonary disease. Transaminitis - AST/ALT trending upwards; 67/180 from 68/152 - continue to monitor HTN -BP normotensive -adjusted to zestril 20 mg PO BID -c/w propanolol and amlodipine -will monitor Hyperthyroidism -Endocrine recs appreciated. -T4 17, TSH .09 on repeat labs (prior T4/TSH was 12.7/.22) -c/w propranolol and methimazole Constipation 2/2 Chronic Opiate Use -Large bowel movement yesterday -c/w coalce and mirilax -regular diet Hypokalemia - resolved -3.7 -Repleted with Potassium Chloride 40 meq PO DVT ppx: Lovenox GI ppx: pepcid Dispo: continue to monitor patient on the floor. Case was discussed and reviewed with attending, Dr. Clinton. <Denia Clinton R - Last Filed: 11/18/17 07:47> Objective - Vital Signs/Intake and Output Vital Signs (last 24 hours): Temp Pulse Resp BP Pulse Ox 100.1 F H 84 20 110/68 96 11/18/17 05:45 11/17/17 23:12 11/17/17 23:12 11/17/17 23:12 11/17/17 23:12 - Medications Medications: Current Medications Acetaminophen (Tylenol 325mg Tab) 650 mg PO Q4H PRN PRN Reason: Fever >100.4 F Last Admin: 11/18/17 05:45 Dose: 650 mg Amlodipine Besylate (Norvasc) 10 mg PO DAILY [facility] Last Admin: 11/17/17 10:33 Dose: 10 mg Docusate Sodium (Colace Liquid) 100 mg PO TID [facility] Last Admin: 11/17/17 18:16 Dose: 100 mg Doxycycline Hyclate (Doryx) 100 mg PO Q12 [facility] PRN Reason: Protocol Stop: 11/24/17 22:01 Last Admin: 11/17/17 21:49 Dose: 100 mg Enoxaparin Sodium (Lovenox) 40 mg SC DAILY [facility] PRN Reason: Protocol Last Admin: 11/17/17 10:32 Dose: 40 mg Famotidine (Pepcid) 20 mg PO 1000 [facility] Last Admin: 11/17/17 10:33 Dose: 20 mg Haloperidol Lactate (Haldol) 4 mg IM Q6 PRN; Protocol PRN Reason: Agitation Meropenem (Merrem Iv 1 Gm Premix) 50 mls @ 100 mls/hr IVPB Q8 [facility] PRN Reason: Protocol Stop: 11/24/17 22:01 Last Admin: 11/18/17 05:05 Dose: 100 mls/hr Vancomycin HCl (Vancomycin 1gm) 1 gm in 250 mls @ 167 mls/hr IVPB Q12H [facility] PRN Reason: Protocol Stop: 11/24/17 20:31 Last Admin: 11/17/17 21:00 Dose: 167 mls/hr Acyclovir 750 mg/ Sodium (Chloride) 100 mls @ 100 mls/hr IV Q8 [facility] PRN Reason: Protocol Stop: 11/24/17 22:01 Last Admin: 11/18/17 05:05 Dose: 100 mls/hr Ibuprofen (Motrin Tab) 400 mg PO Q6H PRN PRN Reason: Pain, moderate (4-7) Last Admin: 11/13/17 18:40 Dose: 400 mg Lisinopril (Zestril) 20 mg PO BID [facility] Last Admin: 11/17/17 18:20 Dose: 20 mg Lorazepam (Ativan) 1 mg PO Q6H PRN; Protocol PRN Reason: Agitation Last Admin: 11/12/17 18:13 Dose: 1 mg Lorazepam (Ativan) 1 mg PO Q12 [facility] PRN Reason: Protocol Last Admin: 11/17/17 21:53 Dose: 1 mg Methimazole (Tapazole) 10 mg PO TID [facility] Last Admin: 11/17/17 18:20 Dose: 10 mg Nystatin (Nystop Topical Powder) 0 gm TOP BID [facility] Last Admin: 11/17/17 10:34 Dose: 1 applic Ondansetron HCl (Zofran Inj) 4 mg IVP Q4H PRN PRN Reason: Nausea/Vomiting Last Admin: 11/17/17 22:23 Dose: 4 mg Oxycodone HCl (Oxycodone Immediate Release Tab) 30 mg PO Q6 [facility] Last Admin: 11/18/17 05:45 Dose: 30 mg Polyethylene Glycol (Miralax) 17 gm PO BID PRN PRN Reason: Constipation Propranolol HCl (Inderal) 10 mg PO TID [facility] Last Admin: 11/17/17 18:18 Dose: 10 mg Quetiapine Fumarate (Seroquel) 12.5 mg PO [facility] PRN; Protocol PRN Reason: disorganized thoughts/psychosi - Labs Labs: 11/18/17 06:15 11/18/17 06:15 Attending/Attestation - Attestation I have personally seen and examined this patient.: Yes I have fully participated in the care of the patient.: Yes I have reviewed all pertinent clinical information, including history, physical exam and plan: Yes Notes (Text): Patient seen and examined by me at 11:30AM with resident on 11/16/17 . Case including HPI, physical exam, and assessment and plan discussed with resident. Agree with above with following additions/corrections. Patient is a 37 year old male with past medical history that is significant for cervical radiculopathy with herniated disc, cervical spondylosis with myelopathy , thoracic spondylosis, and depression that presented to the emergency room with visual hallucinations. Patient is alert and awake. Patient only answers some questions. Patient states that he is feeling ok. Denies any pain. No chest pain. No shortness of breath. No nausea, vomiting, or abdominal pain. Unable to obtain any other review of systems from patient. No acute issues overnight per patient's nurse. Patient is afebrile and having bowel movements. Physical exam: General: Awake and alert sitting up in bed in no acute distress HEENT: Normocephalic atraumatic. Pupils equal reactive. No scleral icterus. Oropharynx is pink and moist. Poor dentition. Neck is supple. Cardiovascular: Normal rhythm. Normal S1, S2. No murmurs, rubs, or gallops appreciated Pulmonary: Normal respiratory effort. No rhonchi, rales or wheezing appreciated. Gastrointestinal: Soft, nondistended. Mild generalized tenderness with deep palpation. Positive bowel sounds all 4 quadrants, no guarding. Musculoskeletal: Moves all extremities, no calf tenderness, no edema appreciated. Central nervous system: Awake and alert. Oriented x2 today. Dermatologic: Skin warm and dry. Positive well healed scar on back. Assessment and plan: Patient is a 37 year old male with past medical history that is significant for cervical radiculopathy with herniated disc, cervical spondylosis with myelopathy, thoracic spondylosis, and depression that presented to the emergency room with visual hallucinations. 1. Fever. Unclear etiology. Blood cultures negative. Urinalysis negative for infection. Chest xray with no active disease. CT chest/abd/pelvis per radiologist shows no acute intra-abdominal or intrathoracic findings; disc degeneration with large osteophytes projecting posteriorly throughout the spine ; the largest osteophyte is seen in the lower cervical spine. MRI brain pending. ID following, recommendations appreciated. Will likely need spinal tap. Patient on vancomycin, meropenem, and acyclovir. Currently afebrile. 2. Acute delirium. Likely secondary to chronic opioid use and polypharmacy. May be secondary to unlcear underlying infection. Waxes and wanes. Urinalysis negative for infection. Blood culture with no growth. Repeat urine and blood cultures with no growth. Chest x-ray on 11/13/2017 shows no interval cardiopulmonary disease appreciated. Psychiatrist following, recommendations appreciated. Continue scheduled Ativan 1 mg by mouth every 12 hours. Continue Seroquel. Continue Haldol and Ativan and is needed. Continue Avasys monitoring. Continue supportive care. CT chest/abdomen/pelvis as above. 3. Leukocytosis. May be reactive vs possible underlying infection. CT chest/ abdomen/pelvis as above. ID consulted, recommendations appreciated. Continue to monitor. 4. Hyperthyroidism. Endocrinology following, recommendations appreciated. Continue propranolol and methimazole. 5. Essential hypertension. Continue lisinopril, Norvasc, and propanolol. 6. Constipation. Continue Colace and MiraLAX. Patient is having bowel movements. 7. Hypokalemia. Resolved. Continue to monitor.
[2017-11-16] MEDS: Enoxaparin 40 mg Syringe SC SCH (10:31)
[2017-11-16] MEDS: POLYETHYLENE GLYCOL 3350 17 GM/Dose PACKET PO SCH (10:31)
[2017-11-16] MEDS: methIMAzole 5 MG TAB PO SCH ×3 (10:32→17:32)
[2017-11-16] MEDS: Nystatin 100,000 Units/gm Topical Pow(15 gm) TOP SCH ×3 (10:35→17:34)
--- NOTE | 2017-11-16 10:47 | CP.PCM.PN ---
Subjective - Date & Time of Evaluation Date of Evaluation: 11/16/17 Time of Evaluation: 10:44 - Subjective Subjective: PGY 1 Progress Note for: Dr. Mccauley Pt was seen and examined this morning at bedside. Pt is a poor historian but at this time he continues to deny symptoms of tachycardia, tremors, restlessness, diarrhea, palpitations or weight loss. He denies any acute complaints at this time. Objective - Vital Signs/Intake and Output Vital Signs (last 24 hours): Temp Pulse Resp BP Pulse Ox 97.4 F L 98 H 20 143/92 H 99 11/16/17 06:00 11/16/17 10:34 11/16/17 06:00 11/16/17 10:34 11/16/17 06:00 Intake and Output: 11/16/17 11/16/17 06:59 18:59 Intake Total 120 Balance 120 - Medications Medications: Current Medications Acetaminophen (Tylenol 325mg Tab) 650 mg PO Q4H PRN PRN Reason: Fever >100.4 F Last Admin: 11/15/17 15:09 Dose: 650 mg Amlodipine Besylate (Norvasc) 10 mg PO DAILY [facility] Last Admin: 11/16/17 10:31 Dose: 10 mg Docusate Sodium (Colace Liquid) 100 mg PO TID [facility] Last Admin: 11/16/17 10:30 Dose: 100 mg Doxycycline Hyclate (Doryx) 100 mg PO Q12 [facility] PRN Reason: Protocol Stop: 11/24/17 22:01 Last Admin: 11/16/17 10:30 Dose: 100 mg Enoxaparin Sodium (Lovenox) 40 mg SC DAILY [facility] PRN Reason: Protocol Last Admin: 11/16/17 10:31 Dose: 40 mg Famotidine (Pepcid) 20 mg PO 1000 [facility] Last Admin: 11/16/17 10:31 Dose: 20 mg Haloperidol Lactate (Haldol) 4 mg IM Q6 PRN; Protocol PRN Reason: Agitation Meropenem (Merrem Iv 1 Gm Premix) 50 mls @ 100 mls/hr IVPB Q8 [facility] PRN Reason: Protocol Stop: 11/24/17 22:01 Last Admin: 11/16/17 05:49 Dose: 100 mls/hr Vancomycin HCl (Vancomycin 1gm) 1 gm in 250 mls @ 167 mls/hr IVPB Q12H [facility] PRN Reason: Protocol Stop: 11/24/17 20:31 Last Admin: 11/16/17 08:24 Dose: 167 mls/hr Acyclovir 750 mg/ Sodium (Chloride) 100 mls @ 100 mls/hr IV Q8 [facility] PRN Reason: Protocol Stop: 11/24/17 22:01 Last Admin: 11/16/17 05:45 Dose: 100 mls/hr Ibuprofen (Motrin Tab) 400 mg PO Q6H PRN PRN Reason: Pain, moderate (4-7) Last Admin: 11/13/17 18:40 Dose: 400 mg Lisinopril (Zestril) 20 mg PO BID [facility] Last Admin: 11/16/17 10:34 Dose: 20 mg Lorazepam (Ativan) 1 mg PO Q6H PRN; Protocol PRN Reason: Agitation Last Admin: 11/12/17 18:13 Dose: 1 mg Lorazepam (Ativan) 1 mg PO Q12 [facility] PRN Reason: Protocol Last Admin: 11/16/17 10:29 Dose: 1 mg Methimazole (Tapazole) 10 mg PO TID [facility] Last Admin: 11/16/17 10:32 Dose: 10 mg Nystatin (Nystop Topical Powder) 0 gm TOP BID [facility] Last Admin: 11/16/17 10:36 Dose: 1 applic Ondansetron HCl (Zofran Inj) 4 mg IVP Q4H PRN PRN Reason: Nausea/Vomiting Polyethylene Glycol (Miralax) 17 gm PO BID [facility] Last Admin: 11/16/17 10:31 Dose: 17 gm Propranolol HCl (Inderal) 10 mg PO TID [facility] Last Admin: 11/16/17 10:30 Dose: 10 mg Quetiapine Fumarate (Seroquel) 12.5 mg PO [facility] PRN; Protocol PRN Reason: disorganized thoughts/psychosi - Labs Labs: 11/16/17 06:30 11/16/17 06:30 - Constitutional Appears: Well, Non-toxic, No Acute Distress - Head Exam Head Exam: ATRAUMATIC, NORMAL INSPECTION, NORMOCEPHALIC - Eye Exam Eye Exam: EOMI, Normal appearance - ENT Exam ENT Exam: Mucous Membranes Moist - Respiratory Exam Respiratory Exam: Clear to Ausculation Bilateral, NORMAL BREATHING PATTERN. absent: Accessory Muscle Use, Rales, Wheezes, Respiratory Distress - Cardiovascular Exam Cardiovascular Exam: Tachycardia (HR 102), REGULAR RHYTHM, +S1, +S2. absent: Gallop, Rubs - GI/Abdominal Exam GI & Abdominal Exam: Soft, Normal Bowel Sounds. absent: Firm, Guarding, Rigid, Tenderness - Extremities Exam Extremities Exam: Normal Capillary Refill, Normal Inspection. absent: Joint Swelling, Tenderness - Psychiatric Exam Psychiatric exam: Agitated - Skin Skin Exam: Dry, Intact, Normal Color, Warm Assessment and Plan - Assessment and Plan (Free Text) Assessment: Pt is a 37 yo M with pmhx of Cervical radiculopathy w/herniated disk, cervical spondylosis w/ myelopahty and depression who we are seeing for newly diagnosed hyperthyroidism. Pt was changed to methimazole 10 TID. - Will assess T4 and TSH in AM to follow progress of hyperthyroidism - Will need to be followed up outpt to continue to titrate and tailor methimazole treatment - Will continue to follow. Discussed with Dr. Garrick Logan PGY1
[2017-11-16 12:30] LABS: HEPATITIS B SURFACE AG Negative (NEGATIVE)
[2017-11-16 12:36] LABS: HEPATITIS A IGM NEGATIVE (NEGATIVE); HEPATITIS B CORE AB NEGATIVE (NEGATIVE)
[2017-11-16 12:47] LABS: HEPATITIS C ANTIBODY NEGATIVE (NEGATIVE)
--- NOTE | 2017-11-16 13:56 | CT ---
Date of service: 11/16/2017 PROCEDURE: CT Chest, Abdomen and Pelvis with intravenous contrast HISTORY: abdominal pain, fever COMPARISON: None available. TECHNIQUE: IV dose administered: 150 cc of Omni 350 Radiation dose: Total exam DLP = 1228 mGy-cm. This CT exam was performed using one or more of the following dose reduction techniques: Automated exposure control, adjustment of the mA and/or kV according to patient size, and/or use of iterative reconstruction technique. FINDINGS: CT CHEST WITH CONTRAST: LUNGS: Clear. No nodule, mass or consolidation. MEDIASTINUM: Unremarkable. Normal caliber aorta and pulmonary arterial trunk. No aortic dissection. Normal size heart. LYMPH NODES: Unremarkable. PLEURA: Unremarkable. No pneumothorax. No pleural fluid. BONES: There is a large right-sided posterior osteophyte in the lower cervical spine the narrows the spinal canal. Additional osteophytes are seen throughout the thoracic spine which narrow the canal. OTHER FINDINGS: None. CT ABDOMEN AND PELVIS: LIVER: Unremarkable. No gross lesion or ductal dilatation. GALLBLADDER AND BILE DUCTS: There is contraction of the gallbladder. PANCREAS: Unremarkable. No gross lesion or ductal dilatation. SPLEEN: Unremarkable. ADRENALS: Unremarkable. No mass. KIDNEYS AND URETERS: Unremarkable. No hydronephrosis. No solid mass. VASCULATURE: Unremarkable. No aortic aneurysm. BOWEL: Unremarkable. No obstruction. No gross mural thickening. APPENDIX: Normal appendix. PERITONEUM: Unremarkable. No free fluid. No free air. LYMPH NODES: Unremarkable. No enlarged lymph nodes. BLADDER: Unremarkable. REPRODUCTIVE: Unremarkable. BONES: No acute fracture. OTHER FINDINGS: None. IMPRESSION: No acute intra-abdominal or intrathoracic findings. Disc degeneration with large osteophytes projecting posteriorly throughout the spine. The largest osteophyte is seen in the lower cervical spine.
--- NOTE | 2017-11-16 16:52 | US ---
HISTORY: Leg pain and swelling. Evaluate for DVT PHYSICIAN(S): Vinny Han MD. TECHNIQUE: Duplex sonography and color-flow Doppler with graded compression were used to evaluate the deep venous systems of both lower extremities. FINDINGS: The visualized deep venous systems of both lower extremities are sonographically normal and compressible. Normal wave forms and augmentation are seen. There is no sonographic evidence for deep venous thrombosis in the visualized segments of both lower extremities. IMPRESSION: No sonographic evidence for deep venous thrombosis in the visualized segments of both lower extremities.
[2017-11-16] MEDS ORDERED: Oxycodone/Acetaminophen 5/325 mg Tab PO PRN (16:57)
--- NOTE | 2017-11-16 17:24 | CP.PCM.PN ---
Subjective - Date & Time of Evaluation Date of Evaluation: 11/16/17 Time of Evaluation: 12:05 - Subjective Subjective: Patient is comfortable in bed, no fevers. Objective - Vital Signs/Intake and Output Vital Signs (last 24 hours): Temp Pulse Resp BP Pulse Ox 97.4 F L 97 H 20 142/90 99 11/16/17 06:00 11/16/17 13:51 11/16/17 06:00 11/16/17 13:51 11/16/17 06:00 Intake and Output: 11/16/17 11/16/17 06:59 18:59 Intake Total 120 Balance 120 - Medications Medications: Current Medications Acetaminophen (Tylenol 325mg Tab) 650 mg PO Q4H PRN PRN Reason: Fever >100.4 F Last Admin: 11/15/17 15:09 Dose: 650 mg Amlodipine Besylate (Norvasc) 10 mg PO DAILY [facility] Last Admin: 11/16/17 10:31 Dose: 10 mg Docusate Sodium (Colace Liquid) 100 mg PO TID [facility] Last Admin: 11/16/17 13:51 Dose: 100 mg Doxycycline Hyclate (Doryx) 100 mg PO Q12 [facility] PRN Reason: Protocol Stop: 11/24/17 22:01 Last Admin: 11/16/17 10:30 Dose: 100 mg Enoxaparin Sodium (Lovenox) 40 mg SC DAILY [facility] PRN Reason: Protocol Last Admin: 11/16/17 10:31 Dose: 40 mg Famotidine (Pepcid) 20 mg PO 1000 [facility] Last Admin: 11/16/17 10:31 Dose: 20 mg Haloperidol Lactate (Haldol) 4 mg IM Q6 PRN; Protocol PRN Reason: Agitation Meropenem (Merrem Iv 1 Gm Premix) 50 mls @ 100 mls/hr IVPB Q8 [facility] PRN Reason: Protocol Stop: 11/24/17 22:01 Last Admin: 11/16/17 13:51 Dose: 100 mls/hr Vancomycin HCl (Vancomycin 1gm) 1 gm in 250 mls @ 167 mls/hr IVPB Q12H [facility] PRN Reason: Protocol Stop: 11/24/17 20:31 Last Admin: 11/16/17 08:24 Dose: 167 mls/hr Acyclovir 750 mg/ Sodium (Chloride) 100 mls @ 100 mls/hr IV Q8 [facility] PRN Reason: Protocol Stop: 11/24/17 22:01 Last Admin: 11/16/17 13:29 Dose: 100 mls/hr Ibuprofen (Motrin Tab) 400 mg PO Q6H PRN PRN Reason: Pain, moderate (4-7) Last Admin: 11/13/17 18:40 Dose: 400 mg Lisinopril (Zestril) 20 mg PO BID [facility] Last Admin: 11/16/17 10:34 Dose: 20 mg Lorazepam (Ativan) 1 mg PO Q6H PRN; Protocol PRN Reason: Agitation Last Admin: 11/12/17 18:13 Dose: 1 mg Lorazepam (Ativan) 1 mg PO Q12 [facility] PRN Reason: Protocol Last Admin: 11/16/17 10:29 Dose: 1 mg Methimazole (Tapazole) 10 mg PO TID [facility] Last Admin: 11/16/17 13:53 Dose: 10 mg Nystatin (Nystop Topical Powder) 0 gm TOP BID [facility] Last Admin: 11/16/17 10:36 Dose: 1 applic Ondansetron HCl (Zofran Inj) 4 mg IVP Q4H PRN PRN Reason: Nausea/Vomiting Oxycodone/Acetaminophen (Percocet 5/325 Mg Tab) 1 tab PO Q6H PRN PRN Reason: Pain, severe (8-10) Stop: 11/19/17 16:58 Polyethylene Glycol (Miralax) 17 gm PO BID PRN PRN Reason: Constipation Propranolol HCl (Inderal) 10 mg PO TID [facility] Last Admin: 11/16/17 13:51 Dose: 10 mg Quetiapine Fumarate (Seroquel) 12.5 mg PO [facility] PRN; Protocol PRN Reason: disorganized thoughts/psychosi - Labs Labs: 11/16/17 06:30 11/16/17 06:30 - Constitutional Appears: Chronically Ill - Head Exam Head Exam: NORMAL INSPECTION - Respiratory Exam Respiratory Exam: Decreased Breath Sounds - Cardiovascular Exam Cardiovascular Exam: +S1, +S2 - GI/Abdominal Exam GI & Abdominal Exam: Soft. absent: Tenderness Assessment and Plan - Assessment and Plan (Free Text) Plan: Assessment severe sepsis with thrombocytopenia due to Enterococcus right sided pyelonephritis seizure disorder CAD HTN COPD significant smoking S/P hernia repair Plan continue Zosyn and will monitor clinically
--- NOTE | 2017-11-16 20:09 | PN ---
DATE: 11/16/2017 SUBJECTIVE: Shortly, the patient was admitted on the medical staff side for evaluation of change in mental status. Urine drug screen was positive for methadone as well as benzodiazepines as well as opioids, but opioids, methadone and benzodiazepines were prescribed to this patient by pain management doctor, Dr. Lopez. The patient still is in delirium stage, not able to provide any history. Yesterday, the patient-s mother Sophie Haro gave a call and asked this newspaper writer to call her back, phone number is [phone]. Collateral information would be crucial for in this case. This newspaper writer called her back. As per mother, the patient had no history of mental illness. The patient had back surgery in 05/2017. The surgery went back not so well. The patient had leakage of his spinal fluid and that is why the patient had surgery again. Surgery was performed by Dr. Humphrey Foster. Since that time, the patient became absolutely disabled. The patient had difficulty to ambulate, had chronic back pain. The patient was seen Dr. Lopez for medication management. The patient was prescribed Cymbalta, methadone and oxycodone. The patient was compliant with the medications and filling medication in [facility]. The patient became depressed after the surgery and after the patient became disabled. For a while, the patient started to see Dr. Blade Rosa, who prescribed the patient Wellbutrin as well as Adderall. The patient's mother said, she did not feel comfortable to give the patient Wellbutrin and Adderall and it was discontinued 2 weeks prior to this hospitalization. The patient never been diagnosed with any mental illness. The patient never been admitted to the psychiatric inpatient unit. The patient never tried to kill himself in the past. The patient-s mother expressed her highest concerns that the patient is not on any pain medication as of now. This newspaper writer passed the message to the medical team, discussed with Dr. Clinton; most likely, the patient will be placed on small dose of pain killers. This newspaper writer reviewed vital signs. Vital signs seems to be stable. Temperature 97; pulse is 97, which is mildly elevated; blood pressure 142/90. Medications reviewed. Tylenol, Norvasc, Colace, the patient is on doxycycline, Lovenox, Pepcid, Haldol as needed, Motrin, Zestril, Ativan 1 mg p.o. every 12 hours schedule, meropenem, the patient also is on Tapazole, nystatin, Zofran, MiraLax, Seroquel only as needed and vancomycin. Labs reviewed. Hematology showed leukocytosis, WBC cells is 14.9. Chemistry reviewed. Urinalysis reviewed. Toxicology reviewed. MENTAL STATUS EXAMINATION: The patient presented to be drowsy. The patient has difficulty to sustain attention. No eye contact. The patient is moaning something. The patient was not able to provide any history, not able to tell how he feels. Thought process cannot be evaluated because of patient's condition. Thought content, the patient has episodes of confusion; hallucinations, which is visual hallucinations, which is related to the medical issues and delirium stage what the patient is currently in. Insight and judgment seems to be impaired as of now. Impulses are unpredictable. IMPRESSION: Most likely, the patient has hypoactive delirium, polypharmacy. The patient also has questionable infection. PLAN: Please see above. The patient never been diagnosed with depression. The patient never diagnosed with any mental illness, most likely the patient is in delirium stage. Seroquel only as needed, Haldol only as needed. Discussed with mother today. This newspaper writer also discussed with the primary team, advised to start pain medication, because the patient has long history of back problems and surgeries. Dr. Preston will follow up on this patient tomorrow. Should you have any questions, give me a call back. Thank you very much for letting me participate in care of your patient. Taylor Issa MD
[2017-11-17 04:18] LABS: PH,URINE 6.5 (4.7-8.0); URINE BILIRUBIN NEGATIVE (NEGATIVE); URINE BLOOD NEGATIVE (NEGATIVE); URINE GLUCOSE (UA) NEGATIVE (NEGATIVE); URINE LEUKOCYTE ESTERASE NEGATIVE Leu/uL (NEGATIVE); URINE PROTEIN TRACE mg/dL (<30 mg/dL)
[2017-11-17 04:29] LABS: URINE APPEARANCE CLEAR (CLEAR); URINE COLOR YELLOW (YELLOW)
[2017-11-17 04:31] LABS: URINE BACTERIA RARE (NEG); URINE RBC 0 - 2 /hpf (0-2); URINE WBC 0 - 2 /hpf (0-6)
[2017-11-17] MEDS: Meropenem IV 1 gm in NS 50 ML IVPB SCH ×3 (05:33→21:49)
[2017-11-17 06:48] LABS: BASO # 0.02 K/mm3 (0.0-2.0); BASO % 0.2 % (0.0-3.0); EOS % 0.1 % (1.5-5.0); GRAN # 8.05 (1.4-6.5); GRAN % 67.9 % (50.0-68.0); HEMOGLOBIN 12.3 g/dL (14.0-18.0); LYMPH # 2.6 (1.2-3.4); LYMPH % 22.3 % (22.0-35.0); MEAN CELL VOLUME 84.9 fl (80.0-105.0); MEAN CORPUSCULAR HEMOGLOBIN 27.7 pg (25.0-35.0); MEAN CORPUSCULAR HGB CONC 32.6 g/dl (31.0-37.0); MEAN PLATELET VOLUME 9.8 fl (7.0-11.0); MONO # 1.1 (0.1-0.6); MONO % 9.5 % (1.0-6.0); RBC 4.44 10^6/uL (3.5-6.1); RED CELL DISTRIBUTION WIDTH 13.8 % (11.5-14.5); WHITE BLOOD COUNT 11.8 10^3/ul (4.5-11.0)
[2017-11-17 07:16] LABS: ALBUMIN 3.6 g/dL (3.0-4.8); ALT/SGPT 180 U/L (7-56); AST/SGOT 56 U/L (17-59); BLOOD UREA NITROGEN 12 mg/dL (7-21); CALCIUM 8.9 mg/dL (8.4-10.5); GFR NON-AFRICAN AMERICAN > 60
[2017-11-17] MEDS: Vancomycin 1gm in NS 250ml 1 GM/250 ML BAG IVPB SCH ×2 (07:55→21:00)
[2017-11-17] MEDS: Enoxaparin 40 mg Syringe SC SCH (10:32)
[2017-11-17] MEDS: methIMAzole 5 MG TAB PO SCH ×3 (10:33→18:20)
[2017-11-17] MEDS: Nystatin 100,000 Units/gm Topical Pow(15 gm) TOP SCH (10:34)
[2017-11-17] MEDS ORDERED: Oxycodone/Acetaminophen 5/325 mg Tab PO SCH (11:30)
[2017-11-17] MEDS: oxyCODONE 30 mg Immediate Release Tab PO SCH ×2 (12:22→18:19)
[2017-11-17] MEDS ORDERED: Gadodiamide 287 MG/ML VIAL (20ML) IV ONE (13:05)
--- NOTE | 2017-11-17 13:43 | MRI ---
Date of service: 11/17/2017 PROCEDURE: MRI BRAIN WITH AND WITHOUT CONTRAST HISTORY: r/o herpes encephalitis COMPARISON: None available. TECHNIQUE: Multiplanar, multisequence MR images of the brain were obtained with and without intravenous contrast enhancement. 20 cc of Omniscan FINDINGS: HEMORRHAGE: None DWI: No evidence of an acute or early subacute infarction. BRAIN PARENCHYMA: No mass,mass effect or edema. No atrophy or chronic microvascular ischemic changes. ENHANCEMENT: No abnormal intracranial enhancement. VENTRICLES: Unremarkable. No hydrocephalus. CRANIUM: Unremarkable. ORBITS: Grossly unremarkable. PARANASAL SINUSES/MASTOIDS: Clear VASCULAR SYSTEM: Skull base flow voids intact. OTHER FINDINGS: None . IMPRESSION: Unremarkable pre and post contrast enhanced MRI of the brain. No evidence of herpes encephalitis
--- NOTE | 2017-11-17 15:56 | PN ---
DATE: 11/17/2017 SUBJECTIVE: The patient is seen earlier this morning in room 563, bed 2. The patient remains confused and his temperature is in a downward trend now and he has been afebrile. PHYSICAL EXAMINATION: VITAL SIGNS: On exam, temperature is 98, blood pressure is 140/90, respiratory rate of 18, heart rate of 97. HEENT: Examination of HEENT is unremarkable. NECK: Supple. LUNGS: Have decreased breath sounds. HEART: Normal S1, S2. ABDOMEN: Soft, nontender. LABORATORY DATA: Laboratory examination reveals a white count of 11,800, hemoglobin of 12. D-dimer is noted. Chemistries reveals a BUN of 12, creatinine of 0.6. Urinalysis is noted. Methadone is positive. Microbiology reveals the repeat blood cultures, urine cultures are negative. Initial blood and urine cultures are negative. The serology reveals the patient's hepatitis profile is negative. HIV is negative. Review of orders reveals the patient to be on meropenem, vancomycin, acyclovir, doxycycline. The patient had a CAT scan of the chest and abdomen, which reveals lungs have no nodules. No consolidation. No masses. No infiltrates. No acute intra-abdominal or intrathoracic findings on the CT of the abdomen. The patient had an MRI of the brain, read by Dr. Reginald Richardson. No evidence of herpes encephalitis, with and without contrast. Unremarkable MRI and ultrasound of the lower extremities. ASSESSMENT AND PLAN: A 37-year-old male seen earlier today. He is still confused with severe sepsis, thrombocytopenia, Enterococcus, right-sided pyelonephritis, seizure disorder, coronary artery disease, hypertension and currently change in mental status. On doxycycline, meropenem, vancomycin, acyclovir. The patient with change in mental status and intermittent leukocytosis and confusions with systemic inflammatory response syndrome. Negative MRI of the head. Negative CAT scan of the chest for pneumonia. Negative CAT scan of the abdomen. Etiology of fever is not clear. Discussed with primary team regarding the need for a spinal tap. We will follow closely with you. The patient did not have Enterococcus. All cultures have been negative. Arias Aviles MD
--- NOTE | 2017-11-17 16:35 | CP.PCM.PN ---
<Alfonzo Mclean - Last Filed: 11/17/17 17:10> Subjective - Date & Time of Evaluation Date of Evaluation: 11/17/17 Time of Evaluation: 07:00 - Subjective Subjective: Alfonzo Mclean PGY1 Medicine Progress Note for Dr. Clinton Patient was seen and examined at bedside this morning. Patient was complaining of abdominal pain. Otherwise, a full 12 point ROS was not obtained since patient was not answering questions appropriately. No overnight changes, no fevers overnight. AAOx2. Patient was later examined during rounds and mentioned that he is still in pain and takes morphine for pain control. Objective - Vital Signs/Intake and Output Vital Signs (last 24 hours): Temp Pulse Resp BP Pulse Ox 98.4 F 119 H 18 119/79 96 11/17/17 06:00 11/17/17 13:53 11/17/17 06:00 11/17/17 13:53 11/17/17 06:00 Intake and Output: 11/17/17 11/17/17 06:59 18:59 Intake Total 540 Output Total 700 Balance -160 - Medications Medications: Current Medications Acetaminophen (Tylenol 325mg Tab) 650 mg PO Q4H PRN PRN Reason: Fever >100.4 F Last Admin: 11/15/17 15:09 Dose: 650 mg Amlodipine Besylate (Norvasc) 10 mg PO DAILY [facility] Last Admin: 11/17/17 10:33 Dose: 10 mg Docusate Sodium (Colace Liquid) 100 mg PO TID [facility] Last Admin: 11/17/17 13:00 Dose: 100 mg Doxycycline Hyclate (Doryx) 100 mg PO Q12 [facility] PRN Reason: Protocol Stop: 11/24/17 22:01 Last Admin: 11/17/17 10:32 Dose: 100 mg Enoxaparin Sodium (Lovenox) 40 mg SC DAILY [facility] PRN Reason: Protocol Last Admin: 11/17/17 10:32 Dose: 40 mg Famotidine (Pepcid) 20 mg PO 1000 [facility] Last Admin: 11/17/17 10:33 Dose: 20 mg Haloperidol Lactate (Haldol) 4 mg IM Q6 PRN; Protocol PRN Reason: Agitation Meropenem (Merrem Iv 1 Gm Premix) 50 mls @ 100 mls/hr IVPB Q8 [facility] PRN Reason: Protocol Stop: 11/24/17 22:01 Last Admin: 11/17/17 13:27 Dose: 100 mls/hr Vancomycin HCl (Vancomycin 1gm) 1 gm in 250 mls @ 167 mls/hr IVPB Q12H [facility] PRN Reason: Protocol Stop: 11/24/17 20:31 Last Admin: 11/17/17 07:55 Dose: 167 mls/hr Acyclovir 750 mg/ Sodium (Chloride) 100 mls @ 100 mls/hr IV Q8 [facility] PRN Reason: Protocol Stop: 11/24/17 22:01 Last Admin: 11/17/17 13:54 Dose: 100 mls/hr Ibuprofen (Motrin Tab) 400 mg PO Q6H PRN PRN Reason: Pain, moderate (4-7) Last Admin: 11/13/17 18:40 Dose: 400 mg Lisinopril (Zestril) 20 mg PO BID [facility] Last Admin: 11/17/17 10:34 Dose: 20 mg Lorazepam (Ativan) 1 mg PO Q6H PRN; Protocol PRN Reason: Agitation Last Admin: 11/12/17 18:13 Dose: 1 mg Lorazepam (Ativan) 1 mg PO Q12 [facility] PRN Reason: Protocol Last Admin: 11/17/17 10:31 Dose: 1 mg Methimazole (Tapazole) 10 mg PO TID [facility] Last Admin: 11/17/17 13:54 Dose: 10 mg Nystatin (Nystop Topical Powder) 0 gm TOP BID [facility] Last Admin: 11/17/17 10:34 Dose: 1 applic Ondansetron HCl (Zofran Inj) 4 mg IVP Q4H PRN PRN Reason: Nausea/Vomiting Oxycodone HCl (Oxycodone Immediate Release Tab) 30 mg PO Q6 [facility] Last Admin: 11/17/17 12:22 Dose: 30 mg Polyethylene Glycol (Miralax) 17 gm PO BID PRN PRN Reason: Constipation Propranolol HCl (Inderal) 10 mg PO TID [facility] Last Admin: 11/17/17 13:53 Dose: 10 mg Quetiapine Fumarate (Seroquel) 12.5 mg PO [facility] PRN; Protocol PRN Reason: disorganized thoughts/psychosi - Labs Labs: 11/17/17 06:15 11/17/17 06:15 - Constitutional Appears: No Acute Distress, Confused - Head Exam Head Exam: ATRAUMATIC, NORMAL INSPECTION, NORMOCEPHALIC - Eye Exam Eye Exam: EOMI, Normal appearance, PERRL - ENT Exam ENT Exam: Mucous Membranes Moist, Normal Exam - Respiratory Exam Respiratory Exam: Clear to Ausculation Bilateral, NORMAL BREATHING PATTERN. absent: Rales, Rhonchi, Wheezes - Cardiovascular Exam Cardiovascular Exam: REGULAR RHYTHM, +S1, +S2. absent: Murmur - GI/Abdominal Exam GI & Abdominal Exam: Soft, Tenderness (Tenderness to deep palpation of abdomen. ). absent: Guarding, Rigid - Extremities Exam Extremities Exam: Full ROM, Normal Capillary Refill, Normal Inspection. absent : Joint Swelling, Pedal Edema, Tenderness - Neurological Exam Neurological Exam: Alert, Awake. absent: Oriented x3 (AAOx2.) - Skin Skin Exam: Dry, Intact, Normal Color, Warm Assessment and Plan - Assessment and Plan (Free Text) Assessment: Patient is a 37 year old male with a PMHx of cervical radiculopathy w/ herniated disc, cervical spondylosis w/ myelopathy, thoracic spondylosis and depression under hospital management for acute delirium. Currently suspect delirium 2/2 to chronic opiate usage. Patient continues to be lethargic and altered. Continue to monitor on the floor. Plan: Acute Delerium 2/2 Chronic Opiate Use -Reconsult Neurology; may need to consider possible Spinal Tap. -Percocet q6 prn for pain control -AAOx2 today; patient mentioned that morphine controls his pain -Psych recs appreciated. Patient lacks capacity. -AMS likely 2/2 opiates, benzos which have extended half life. -history of chronic back pain with multiple cervical/thoracic laminectomies with longwall headgate operator opiate use -moderate fall risk precautions -blood culture negative thus far -Head CT on 11/06: no acute intracranial pathology -currently on AVASYS for monitoring -Neuro signed off case. Plan to reconsult. Transaminitis - AST/ALT 56/180 -CT Chest/Abd/Pelvis (11/16): no acute intra-abdominal or intra-thoracic findings. Disc degeneration with large osteophytes throughout spine. - continue to monitor SIRS criteria met -wbc 11.8 today and afebrile overnight (does not meet sepsis criteria; no source ) -CT Chest/Abd/Pelvis (11/16): no acute findings -US Lower Extremity: prelim reading is negative for DVT -D-dimer negative -Blood cx negative x2 -UA negative -EKG (11/15): sinus tachycardia. HR 110. No T wave abnormalities. -CXR (11/13): negative for active cardiopulmonary disease. HTN -BP normotensive -c/w zestril, propanolol and amlodipine -will monitor Hyperthyroidism -Endocrine recs appreciated. -T4 17, TSH .09 on repeat labs (prior T4/TSH was 12.7/.22) -c/w propranolol and methimazole Constipation 2/2 Chronic Opiate Use -Large bowel movement yesterday -c/w coalce and mirilax -regular diet DVT ppx: Lovenox GI ppx: pepcid Dispo: continue to monitor patient on the floor. Case was discussed and reviewed with attending, Dr. Clinton. <Denia Clinton R - Last Filed: 11/18/17 17:35> Objective - Vital Signs/Intake and Output Vital Signs (last 24 hours): Temp Pulse Resp BP Pulse Ox 101 F H 107 H 20 130/86 100 11/18/17 15:32 11/18/17 15:31 11/18/17 14:00 11/18/17 15:31 11/18/17 14:00 - Medications Medications: Current Medications Acetaminophen (Tylenol 325mg Tab) 650 mg PO Q4H PRN PRN Reason: Fever >100.4 F Last Admin: 11/18/17 15:33 Dose: 650 mg Amlodipine Besylate (Norvasc) 10 mg PO DAILY [facility] Last Admin: 11/18/17 12:05 Dose: 10 mg Docusate Sodium (Colace Liquid) 100 mg PO TID [facility] Last Admin: 11/18/17 12:00 Dose: 100 mg Doxycycline Hyclate (Doryx) 100 mg PO Q12 [facility] PRN Reason: Protocol Stop: 11/24/17 22:01 Last Admin: 11/18/17 12:06 Dose: 100 mg Enoxaparin Sodium (Lovenox) 40 mg SC DAILY [facility] PRN Reason: Protocol Last Admin: 11/18/17 12:00 Dose: 40 mg Famotidine (Pepcid) 20 mg PO 1000 [facility] Last Admin: 11/18/17 12:06 Dose: 20 mg Haloperidol Lactate (Haldol) 4 mg IM Q6 PRN; Protocol PRN Reason: Agitation Meropenem (Merrem Iv 1 Gm Premix) 50 mls @ 100 mls/hr IVPB Q8 [facility] PRN Reason: Protocol Stop: 11/24/17 22:01 Last Admin: 11/18/17 15:29 Dose: 100 mls/hr Vancomycin HCl (Vancomycin 1gm) 1 gm in 250 mls @ 167 mls/hr IVPB Q12H [facility] PRN Reason: Protocol Stop: 11/24/17 20:31 Last Admin: 11/18/17 12:07 Dose: 167 mls/hr Acyclovir 750 mg/ Sodium (Chloride) 100 mls @ 100 mls/hr IV Q8 [facility] PRN Reason: Protocol Stop: 11/24/17 22:01 Last Admin: 11/18/17 16:13 Dose: 100 mls/hr Ibuprofen (Motrin Tab) 400 mg PO Q6H PRN PRN Reason: Pain, moderate (4-7) Last Admin: 11/18/17 15:32 Dose: 400 mg Lisinopril (Zestril) 20 mg PO BID [facility] Last Admin: 11/18/17 12:01 Dose: 20 mg Lorazepam (Ativan) 1 mg PO Q6H PRN; Protocol PRN Reason: Agitation Last Admin: 11/12/17 18:13 Dose: 1 mg Lorazepam (Ativan) 1 mg PO Q12 [facility] PRN Reason: Protocol Last Admin: 11/18/17 13:08 Dose: 1 mg Methimazole (Tapazole) 10 mg PO TID [facility] Last Admin: 11/18/17 15:31 Dose: 10 mg Nystatin (Nystop Topical Powder) 0 gm TOP BID [facility] Last Admin: 11/18/17 11:37 Dose: 1 applic Ondansetron HCl (Zofran Inj) 4 mg IVP Q4H PRN PRN Reason: Nausea/Vomiting Last Admin: 11/17/17 22:23 Dose: 4 mg Oxycodone HCl (Oxycodone Immediate Release Tab) 30 mg PO Q6 [facility] Last Admin: 11/18/17 12:04 Dose: 30 mg Polyethylene Glycol (Miralax) 17 gm PO BID PRN PRN Reason: Constipation Last Admin: 11/18/17 11:59 Dose: 17 gm Propranolol HCl (Inderal) 10 mg PO TID [facility] Last Admin: 11/18/17 15:31 Dose: 10 mg Quetiapine Fumarate (Seroquel) 12.5 mg PO [facility] PRN; Protocol PRN Reason: disorganized thoughts/psychosi - Labs Labs: 11/18/17 06:15 11/18/17 06:15 Attending/Attestation - Attestation I have personally seen and examined this patient.: Yes I have fully participated in the care of the patient.: Yes I have reviewed all pertinent clinical information, including history, physical exam and plan: Yes Notes (Text): Patient seen and examined by me at 11:15AM with resident on 11/17/17 . Case including HPI, physical exam, and assessment and plan discussed with resident. Agree with above with following additions/corrections. Patient is a 37 year old male with past medical history that is significant for cervical radiculopathy with herniated disc, cervical spondylosis with myelopathy , thoracic spondylosis, and depression that presented to the emergency room with visual hallucinations. Patient is alert and awake. Patient answering a few more questions today. States that he is having neck pain. States percocet does not help him for pain and morphine does. He is denying abdominal pain but has tenderness when palpated. No chest pain or shortness of breath. No nausea or vomiting. Unable to obtain any other review of systems from patient. No acute issues overnight per patient's nurse. Patient is afebrile and having bowel movements. Physical exam: General: Awake and alert sitting up in bed in no acute distress HEENT: Normocephalic atraumatic. Pupils equal reactive. No scleral icterus. Oropharynx is pink and moist. Poor dentition. Neck is supple. Cardiovascular: Normal rhythm. Normal S1, S2. No murmurs, rubs, or gallops appreciated Pulmonary: Normal respiratory effort. No rhonchi, rales or wheezing appreciated. Gastrointestinal: Soft, nondistended. Mild generalized tenderness with deep palpation. Positive bowel sounds all 4 quadrants, no guarding. Musculoskeletal: Moves all extremities, no calf tenderness, no edema appreciated. Central nervous system: Awake and alert. Oriented x2. Dermatologic: Skin warm and dry. Positive well healed scar on back. Assessment and plan: Patient is a 37 year old male with past medical history that is significant for cervical radiculopathy with herniated disc, cervical spondylosis with myelopathy, thoracic spondylosis, and depression that presented to the emergency room with visual hallucinations. 1. Fever. Unclear etiology. Afebrile today. Blood cultures negative. Urinalysis negative for infection. Chest xray with no active disease. CT chest/abd/pelvis per radiologist shows no acute intra-abdominal or intrathoracic findings; disc degeneration with large osteophytes projecting posteriorly throughout the spine ; the largest osteophyte is seen in the lower cervical spine. MRI brain pending. ID following, recommendations appreciated. Neurology re-consulted for possible spinal tap. Patient on vancomycin, meropenem, and acyclovir. Currently afebrile. 2. Acute delirium. Likely secondary to chronic opioid use and polypharmacy. May be secondary to unlcear underlying infection. Waxes and wanes. May also have withdrawal. Will restart on patients hoe oxycodone. Urinalysis negative for infection. Blood culture with no growth. Repeat urine and blood cultures with no growth. Chest x-ray on 11/13/2017 shows no interval cardiopulmonary disease appreciated. Psychiatrist following, recommendations appreciated. Continue scheduled Ativan 1 mg by mouth every 12 hours. Continue Seroquel. Continue Haldol and Ativan and as needed. Continue Avasys monitoring. Continue supportive care. CT chest/abdomen/pelvis as above. 3. Leukocytosis. May be reactive vs possible underlying infection. Downtrended. CT chest/abdomen/pelvis as above. ID consulted, recommendations appreciated. Continue to monitor. 4. Hyperthyroidism. Endocrinology following, recommendations appreciated. Continue propranolol and methimazole. 5. Essential hypertension. Continue lisinopril, Norvasc, and propanolol. 6. Constipation. Continue Colace and Miralax. Patient is having bowel movements. 7. Hypokalemia. Resolved. Continue to monitor.
[2017-11-18] MEDS: oxyCODONE 30 mg Immediate Release Tab PO SCH ×4 (00:35→18:30)
[2017-11-18] MEDS: Meropenem IV 1 gm in NS 50 ML IVPB SCH ×3 (05:05→21:39)
[2017-11-18 07:03] LABS: BASO # 0.01 K/mm3 (0.0-2.0); BASO % 0.1 % (0.0-3.0); EOS % 0.2 % (1.5-5.0); GRAN # 8.79 (1.4-6.5); GRAN % 74.3 % (50.0-68.0); HEMOGLOBIN 11.1 g/dL (14.0-18.0); LYMPH # 2.4 (1.2-3.4); LYMPH % 20.7 % (22.0-35.0); MEAN CELL VOLUME 84.9 fl (80.0-105.0); MEAN CORPUSCULAR HEMOGLOBIN 27.4 pg (25.0-35.0); MEAN CORPUSCULAR HGB CONC 32.3 g/dl (31.0-37.0); MEAN PLATELET VOLUME 9.6 fl (7.0-11.0); MONO # 0.6 (0.1-0.6); MONO % 4.7 % (1.0-6.0); RBC 4.05 10^6/uL (3.5-6.1); RED CELL DISTRIBUTION WIDTH 13.6 % (11.5-14.5); WHITE BLOOD COUNT 11.8 10^3/ul (4.5-11.0)
[2017-11-18 07:19] LABS: ALBUMIN 3.4 g/dL (3.0-4.8); ALT/SGPT 158 U/L (7-56); AST/SGOT 49 U/L (17-59); BLOOD UREA NITROGEN 10 mg/dL (7-21); CALCIUM 8.6 mg/dL (8.4-10.5); GFR NON-AFRICAN AMERICAN > 60
[2017-11-18] MEDS: Nystatin 100,000 Units/gm Topical Pow(15 gm) TOP SCH ×2 (11:37→18:31)
[2017-11-18] MEDS: POLYETHYLENE GLYCOL 3350 17 GM/Dose PACKET PO PRN (11:59)
[2017-11-18] MEDS: Enoxaparin 40 mg Syringe SC SCH (12:00)
[2017-11-18] MEDS: methIMAzole 5 MG TAB PO SCH ×3 (12:05→18:29)
[2017-11-18] MEDS: Vancomycin 1gm in NS 250ml 1 GM/250 ML BAG IVPB SCH ×2 (12:07→20:08)
--- NOTE | 2017-11-18 12:31 | PN ---
DATE: 11/18/2017 SUBJECTIVE: Shortly, the patient is a 37-year-old male with multiple medical issues including multiple back surgeries, most recent was in May. The patient was on multiple pain killers including oxycodone as well as methadone. The patient was admitted on the medical side for evaluation of altered mental status. All pain medications were discontinued. Also psychotropic medication, such as Seroquel was started for episodes of confusion. This scientific technical writer was involved into the patient care for altered mental status, episodes of hallucinations and delirium stage. After obtaining collateral information from the patient's mother who is actively involved into the patient care, the patient was on pain medication for years as well as on methadone for his chronic pain. Mother is reported that the patient has never been diagnosed with major depressive disorder, never been admitted to the Psychiatric Inpatient Unit and never been on any psychotropic medication besides Wellbutrin as well as stimulants which was prescribed for short period of time by Dr. Blade Rosa. This scientific technical writer had prolonged conversation with Dr. Clinton the day before yesterday, it was recommended to resume pain medications from this scientific technical writer's impression, the patient was in delirium stage due to combination of the factors, possible withdrawal from the opioids as well as medical issues. Percocet was started four times a day. This scientific technical writer was off yesterday. Today, this scientific technical writer is following up on this patient. The patient presented much better. The patient presented to be alert and oriented. He knows that he is in the hospital. The patient was able to hold the conversation. No episodes of hallucinations. Thought process is more coherent and goal directed. Thought content, the patient has transient confusion, but much better. The patient denied thoughts of killing himself or others. The patient denied any mood symptoms and reported that he feels much better, but complained on the pain. Impulses are well controlled. This scientific technical writer reviewed vital signs. The patient still has low-grade fever, blood pressure is better controlled. In regards of the medications, this scientific technical writer gave Seroquel only as needed. Pain medication was started by medical team. The patient is on antibiotics and these current medication set seems to be improving the patient's mental status. IMPRESSION: Most likely multifactorial delirium. This scientific technical writer could not exclude that the patient was withdrawing from the opioids as well. Please see medical team as well as this scientific technical writer's previous notes for more detailed information. PLAN: Continue pain medication, but the patient reported that Percocet was never working for him. The patient was on methadone as well as on oxycodone. This scientific technical writer was advised for the medical team to call to the Pharmacy and confirm doses or ask for Pain Management consultation. So far, the patient is improving. Mood described as not bad. Affect was more reactive and mood congruent. Delirium is clearing. The patient is off psychotropic medications, only as needed. Continue current management. There is no need for Psychiatry to follow up on this patient because the patient is improving already. In case if the patient's mental status is acutely changed, please do not hesitate to give a call and reconsult. So far, the patient is improving. The patient is not on any imminent danger to self or others. This scientific technical writer will sign off. Should you have any questions, give me a call back. Thank you very much. Taylor Issa MD
--- NOTE | 2017-11-18 16:44 | CP.PCM.PN ---
Subjective - Date & Time of Evaluation Date of Evaluation: 11/18/17 Time of Evaluation: 13:45 - Subjective Subjective: Comfortable but still having occasional headache, still having intermittent fevers, no diarrhea, no nausea. Objective - Vital Signs/Intake and Output Vital Signs (last 24 hours): Temp Pulse Resp BP Pulse Ox 100.1 F H 124 H 20 121/80 98 11/18/17 06:00 11/18/17 12:06 11/18/17 06:00 11/18/17 12:06 11/18/17 06:00 - Medications Medications: Current Medications Acetaminophen (Tylenol 325mg Tab) 650 mg PO Q4H PRN PRN Reason: Fever >100.4 F Last Admin: 11/18/17 05:45 Dose: 650 mg Amlodipine Besylate (Norvasc) 10 mg PO DAILY [facility] Last Admin: 11/18/17 12:05 Dose: 10 mg Docusate Sodium (Colace Liquid) 100 mg PO TID [facility] Last Admin: 11/18/17 12:00 Dose: 100 mg Doxycycline Hyclate (Doryx) 100 mg PO Q12 [facility] PRN Reason: Protocol Stop: 11/24/17 22:01 Last Admin: 11/18/17 12:06 Dose: 100 mg Enoxaparin Sodium (Lovenox) 40 mg SC DAILY [facility] PRN Reason: Protocol Last Admin: 11/18/17 12:00 Dose: 40 mg Famotidine (Pepcid) 20 mg PO 1000 [facility] Last Admin: 11/18/17 12:06 Dose: 20 mg Haloperidol Lactate (Haldol) 4 mg IM Q6 PRN; Protocol PRN Reason: Agitation Meropenem (Merrem Iv 1 Gm Premix) 50 mls @ 100 mls/hr IVPB Q8 [facility] PRN Reason: Protocol Stop: 11/24/17 22:01 Last Admin: 11/18/17 05:05 Dose: 100 mls/hr Vancomycin HCl (Vancomycin 1gm) 1 gm in 250 mls @ 167 mls/hr IVPB Q12H [facility] PRN Reason: Protocol Stop: 11/24/17 20:31 Last Admin: 11/18/17 12:07 Dose: 167 mls/hr Acyclovir 750 mg/ Sodium (Chloride) 100 mls @ 100 mls/hr IV Q8 [facility] PRN Reason: Protocol Stop: 11/24/17 22:01 Last Admin: 11/18/17 05:05 Dose: 100 mls/hr Ibuprofen (Motrin Tab) 400 mg PO Q6H PRN PRN Reason: Pain, moderate (4-7) Last Admin: 11/13/17 18:40 Dose: 400 mg Lisinopril (Zestril) 20 mg PO BID [facility] Last Admin: 11/18/17 12:01 Dose: 20 mg Lorazepam (Ativan) 1 mg PO Q6H PRN; Protocol PRN Reason: Agitation Last Admin: 11/12/17 18:13 Dose: 1 mg Lorazepam (Ativan) 1 mg PO Q12 [facility] PRN Reason: Protocol Last Admin: 11/17/17 21:53 Dose: 1 mg Methimazole (Tapazole) 10 mg PO TID [facility] Last Admin: 11/18/17 12:05 Dose: 10 mg Nystatin (Nystop Topical Powder) 0 gm TOP BID [facility] Last Admin: 11/17/17 10:34 Dose: 1 applic Ondansetron HCl (Zofran Inj) 4 mg IVP Q4H PRN PRN Reason: Nausea/Vomiting Last Admin: 11/17/17 22:23 Dose: 4 mg Oxycodone HCl (Oxycodone Immediate Release Tab) 30 mg PO Q6 [facility] Last Admin: 11/18/17 12:04 Dose: 30 mg Polyethylene Glycol (Miralax) 17 gm PO BID PRN PRN Reason: Constipation Last Admin: 11/18/17 11:59 Dose: 17 gm Propranolol HCl (Inderal) 10 mg PO TID [facility] Last Admin: 11/18/17 12:06 Dose: 10 mg Quetiapine Fumarate (Seroquel) 12.5 mg PO [facility] PRN; Protocol PRN Reason: disorganized thoughts/psychosi - Labs Labs: 11/18/17 06:15 11/18/17 06:15 - Constitutional Appears: Chronically Ill - Head Exam Head Exam: NORMAL INSPECTION - ENT Exam ENT Exam: Mucous Membranes Moist - Neck Exam Neck Exam: absent: Meningismus - Respiratory Exam Respiratory Exam: Decreased Breath Sounds - Cardiovascular Exam Cardiovascular Exam: +S1, +S2 - GI/Abdominal Exam GI & Abdominal Exam: Soft. absent: Tenderness Assessment and Plan - Assessment and Plan (Free Text) Plan: Assessment headache, fever need to rule out meningitis GERD cervical radiculopathy lumbar herniated disc depression Plan MRI brain is negative, will continue Vancomycin, Merrem, Doxycycline and Acyclovir will recommend spinal tap and will await results - Neurology has been consulted will continue to monitor clinically
--- NOTE | 2017-11-18 20:05 | CP.PCM.PN ---
<Alfonzo Mclean - Last Filed: 11/18/17 20:01> Subjective - Date & Time of Evaluation Date of Evaluation: 11/18/17 Time of Evaluation: 07:00 - Subjective Subjective: Alfonzo Mclean PGY1 Medicine Progress Note for Dr. Clinton Patient was seen and examined at bedside this morning. Patient's mental status significantly improved today. He was AAOx3 to person, place, time. Patient said he has neck pain and some pain in his abdomen. He denies cp, sob, n/v/d. No fevers overnight, however, a few minutes prior to interview the patient's temperature was 100.1, as per nurse. Otherwise, vital signs stable. A full 12 point ROS was conducted and unremarkable except as stated above. Objective - Vital Signs/Intake and Output Vital Signs (last 24 hours): Temp Pulse Resp BP Pulse Ox 99.0 F 86 20 130/86 100 11/18/17 16:33 11/18/17 18:30 11/18/17 14:00 11/18/17 18:30 11/18/17 14:00 - Medications Medications: Current Medications Acetaminophen (Tylenol 325mg Tab) 650 mg PO Q4H PRN PRN Reason: Fever >100.4 F Last Admin: 11/18/17 15:33 Dose: 650 mg Amlodipine Besylate (Norvasc) 10 mg PO DAILY [facility] Last Admin: 11/18/17 12:05 Dose: 10 mg Docusate Sodium (Colace Liquid) 100 mg PO TID [facility] Last Admin: 11/18/17 18:29 Dose: 100 mg Doxycycline Hyclate (Doryx) 100 mg PO Q12 [facility] PRN Reason: Protocol Stop: 11/24/17 22:01 Last Admin: 11/18/17 12:06 Dose: 100 mg Enoxaparin Sodium (Lovenox) 40 mg SC DAILY [facility] PRN Reason: Protocol Last Admin: 11/18/17 12:00 Dose: 40 mg Famotidine (Pepcid) 20 mg PO 1000 [facility] Last Admin: 11/18/17 12:06 Dose: 20 mg Haloperidol Lactate (Haldol) 4 mg IM Q6 PRN; Protocol PRN Reason: Agitation Meropenem (Merrem Iv 1 Gm Premix) 50 mls @ 100 mls/hr IVPB Q8 [facility] PRN Reason: Protocol Stop: 11/24/17 22:01 Last Admin: 11/18/17 15:29 Dose: 100 mls/hr Vancomycin HCl (Vancomycin 1gm) 1 gm in 250 mls @ 167 mls/hr IVPB Q12H [facility] PRN Reason: Protocol Stop: 11/24/17 20:31 Last Admin: 11/18/17 12:07 Dose: 167 mls/hr Acyclovir 750 mg/ Sodium (Chloride) 100 mls @ 100 mls/hr IV Q8 [facility] PRN Reason: Protocol Stop: 11/24/17 22:01 Last Admin: 11/18/17 16:13 Dose: 100 mls/hr Ibuprofen (Motrin Tab) 400 mg PO Q6H PRN PRN Reason: Pain, moderate (4-7) Last Admin: 11/18/17 15:32 Dose: 400 mg Lisinopril (Zestril) 20 mg PO BID [facility] Last Admin: 11/18/17 18:29 Dose: 20 mg Lorazepam (Ativan) 1 mg PO Q6H PRN; Protocol PRN Reason: Agitation Last Admin: 11/12/17 18:13 Dose: 1 mg Lorazepam (Ativan) 1 mg PO Q12 [facility] PRN Reason: Protocol Last Admin: 11/18/17 13:08 Dose: 1 mg Methimazole (Tapazole) 10 mg PO TID [facility] Last Admin: 11/18/17 18:29 Dose: 10 mg Nystatin (Nystop Topical Powder) 0 gm TOP BID [facility] Last Admin: 11/18/17 18:31 Dose: 1 applic Ondansetron HCl (Zofran Inj) 4 mg IVP Q4H PRN PRN Reason: Nausea/Vomiting Last Admin: 11/17/17 22:23 Dose: 4 mg Oxycodone HCl (Oxycodone Immediate Release Tab) 30 mg PO Q6 [facility] Last Admin: 11/18/17 18:30 Dose: 30 mg Polyethylene Glycol (Miralax) 17 gm PO BID PRN PRN Reason: Constipation Last Admin: 11/18/17 11:59 Dose: 17 gm Propranolol HCl (Inderal) 10 mg PO TID [facility] Last Admin: 11/18/17 18:30 Dose: 10 mg Quetiapine Fumarate (Seroquel) 12.5 mg PO [facility] PRN; Protocol PRN Reason: disorganized thoughts/psychosi - Labs Labs: 11/18/17 06:15 11/18/17 06:15 - Constitutional Appears: No Acute Distress - Head Exam Head Exam: ATRAUMATIC, NORMAL INSPECTION, NORMOCEPHALIC - Eye Exam Eye Exam: EOMI, Normal appearance, PERRL - ENT Exam ENT Exam: Mucous Membranes Moist, Normal Exam - Neck Exam Neck Exam: Full ROM, Normal Inspection. absent: Lymphadenopathy Additional comments: NO nuchal rigidity noted on exam - Respiratory Exam Respiratory Exam: Clear to Ausculation Bilateral, NORMAL BREATHING PATTERN. absent: Rales, Rhonchi, Wheezes - Cardiovascular Exam Cardiovascular Exam: REGULAR RHYTHM, +S1, +S2. absent: Murmur - GI/Abdominal Exam GI & Abdominal Exam: Soft, Tenderness (Mild tendernesst to deep palpation of abdomen), Normal Bowel Sounds - Extremities Exam Extremities Exam: Full ROM, Normal Capillary Refill, Normal Inspection. absent : Joint Swelling, Pedal Edema - Back Exam Additional comments: Multiple lamenectomy scars noted. - Neurological Exam Neurological Exam: Alert, Awake, Oriented x3 Neuro motor strength exam: Left Upper Extremity: 5, Right Upper Extremity: 5, Left Lower Extremity: 4, Right Lower Extremity: 4 - Skin Skin Exam: Dry, Intact, Normal Color, Warm Assessment and Plan - Assessment and Plan (Free Text) Assessment: Patient is a 37 year old male with a PMHx of cervical radiculopathy w/ herniated disc, cervical spondylosis w/ myelopathy, thoracic spondylosis and depression under hospital management for acute delirium. Currently suspect delirium 2/2 to chronic opiate usage. Patient's delirium has improved. Continue to monitor on the floor. Plan: Acute Delerium 2/2 Chronic Opiate Use - improving -As per neurology, patient may need spinal tap tomorrow. -c/w Percocet q6 prn for pain control -AAOx3 on exam today -Psych recs appreciated. Patient lacks capacity. -AMS likely 2/2 opiates, benzos which have extended half life. -history of chronic back pain with multiple cervical/thoracic laminectomies with senior living opiate use -moderate fall risk precautions -blood culture negative thus far -Head CT on 11/06: no acute intracranial pathology -currently on AVASYS for monitoring -Neuro signed off case. Plan to reconsult. Transaminitis -AST/ALT 49/158 downtrending from 56/180 -CT Chest/Abd/Pelvis (11/16): no acute intra-abdominal or intra-thoracic findings. Disc degeneration with large osteophytes throughout spine. -continue to monitor SIRS criteria met -ID recs apprecaited; c/w doxy, gilma, vanco, and acyclovir -Brain MRI: no evidence of herpes encephalitis -No leukocytosis -CT Chest/Abd/Pelvis (11/16): no acute findings -Blood cx negative x2 -UA negative HTN -BP normotensive -c/w zestril, propanolol and amlodipine -will monitor Hyperthyroidism -Endocrine recs appreciated. -T4 17, TSH .09 on repeat labs (prior T4/TSH was 12.7/.22) -c/w propranolol and methimazole Constipation 2/2 Chronic Opiate Use -Large bowel movement yesterday -c/w coalce and mirilax -regular diet DVT ppx: Lovenox GI ppx: pepcid Dispo: continue to monitor patient on the floor. Improved mental status. Case was discussed and reviewed with attending, Dr. Clinton. <Denia Clinton R - Last Filed: 11/19/17 14:50> Objective - Vital Signs/Intake and Output Vital Signs (last 24 hours): Temp Pulse Resp BP Pulse Ox 99.4 F 100 H 20 140/92 H 98 11/19/17 06:00 11/19/17 09:18 11/19/17 06:00 11/19/17 09:19 11/19/17 06:00 Intake and Output: 11/19/17 11/19/17 06:59 18:59 Intake Total 240 Output Total 1100 Balance -860 - Medications Medications: Current Medications Acetaminophen (Tylenol 325mg Tab) 650 mg PO Q4H PRN PRN Reason: Fever >100.4 F Last Admin: 11/19/17 04:58 Dose: 650 mg Amlodipine Besylate (Norvasc) 10 mg PO DAILY [facility] Last Admin: 11/19/17 09:19 Dose: 10 mg Docusate Sodium (Colace Liquid) 100 mg PO TID [facility] Last Admin: 11/19/17 09:17 Dose: 100 mg Doxycycline Hyclate (Doryx) 100 mg PO Q12 [facility] PRN Reason: Protocol Stop: 09/20/18 22:01 Last Admin: 11/19/17 09:19 Dose: 100 mg Enoxaparin Sodium (Lovenox) 40 mg SC DAILY [facility] PRN Reason: Protocol Last Admin: 11/19/17 09:18 Dose: 40 mg Famotidine (Pepcid) 20 mg PO 1000 [facility] Last Admin: 11/19/17 09:19 Dose: 20 mg Haloperidol Lactate (Haldol) 4 mg IM Q6 PRN; Protocol PRN Reason: Agitation Meropenem (Merrem Iv 1 Gm Premix) 50 mls @ 100 mls/hr IVPB Q8 [facility] PRN Reason: Protocol Stop: 11/24/17 22:01 Last Admin: 11/19/17 04:59 Dose: 100 mls/hr Vancomycin HCl (Vancomycin 1gm) 1 gm in 250 mls @ 167 mls/hr IVPB Q12H [facility] PRN Reason: Protocol Stop: 11/24/17 20:31 Last Admin: 11/19/17 09:17 Dose: 167 mls/hr Acyclovir 750 mg/ Sodium (Chloride) 100 mls @ 100 mls/hr IV Q8 [facility] PRN Reason: Protocol Stop: 11/24/17 22:01 Last Admin: 11/19/17 08:04 Dose: 100 mls/hr Sodium Chloride (Sodium Chloride 0.9%) 1,000 mls @ 100 mls/hr IV .Q10H [facility] Stop: 11/20/17 07:59 Ibuprofen (Motrin Tab) 400 mg PO Q6H PRN PRN Reason: Pain, moderate (4-7) Last Admin: 11/19/17 04:58 Dose: 400 mg Lisinopril (Zestril) 20 mg PO BID [facility] Last Admin: 11/19/17 09:19 Dose: 20 mg Lorazepam (Ativan) 1 mg PO Q6H PRN; Protocol PRN Reason: Agitation Last Admin: 11/12/17 18:13 Dose: 1 mg Lorazepam (Ativan) 1 mg PO Q12 [facility] PRN Reason: Protocol Last Admin: 11/19/17 09:19 Dose: 1 mg Methimazole (Tapazole) 10 mg PO TID [facility] Last Admin: 11/19/17 09:17 Dose: 10 mg Nystatin (Nystop Topical Powder) 0 gm TOP BID [facility] Last Admin: 11/19/17 09:20 Dose: 1 applic Ondansetron HCl (Zofran Inj) 4 mg IVP Q4H PRN PRN Reason: Nausea/Vomiting Last Admin: 11/18/17 20:08 Dose: 4 mg Oxycodone HCl (Oxycodone Immediate Release Tab) 30 mg PO Q6 [facility] Last Admin: 11/19/17 09:18 Dose: 30 mg Polyethylene Glycol (Miralax) 17 gm PO BID PRN PRN Reason: Constipation Last Admin: 11/18/17 11:59 Dose: 17 gm Propranolol HCl (Inderal) 10 mg PO TID [facility] Last Admin: 11/19/17 09:18 Dose: 10 mg Quetiapine Fumarate (Seroquel) 12.5 mg PO [facility] PRN; Protocol PRN Reason: disorganized thoughts/psychosi - Labs Labs: 11/19/17 07:00 11/19/17 07:00 Attending/Attestation - Attestation I have personally seen and examined this patient.: Yes I have fully participated in the care of the patient.: Yes I have reviewed all pertinent clinical information, including history, physical exam and plan: Yes Notes (Text): Patient seen and examined by me at 11:10AM with resident on 11/18/17 . Case including HPI, physical exam, and assessment and plan discussed with resident. Agree with above with following additions/corrections. Patient is a 37 year old male with past medical history that is significant for cervical radiculopathy with herniated disc, cervical spondylosis with myelopathy , thoracic spondylosis, and depression that presented to the emergency room with visual hallucinations. Patient is more lucid today. Continues to complain of neck pain. Oriented to self and place. Also complains of headache. No chest pain or shortness of breath. No nausea or vomiting. No abdominal pain. No dizziness. No dysuria. No acute issues overnight per patient's nurse. Patient is afebrile and having bowel movements. Physical exam: General: Awake and alert sitting up in bed in no acute distress HEENT: Normocephalic atraumatic. Pupils equal reactive. No scleral icterus. Oropharynx is pink and moist. Poor dentition. Neck is supple. Cardiovascular: Normal rhythm. Normal S1, S2. No murmurs, rubs, or gallops appreciated Pulmonary: Normal respiratory effort. No rhonchi, rales or wheezing appreciated. Gastrointestinal: Soft, nondistended. Mild generalized tenderness with deep palpation. Positive bowel sounds all 4 quadrants, no guarding. Musculoskeletal: Moves all extremities, no calf tenderness, no edema appreciated. Central nervous system: Awake and alert. Oriented x2. Dermatologic: Skin warm and dry. Positive well healed scar on back. Assessment and plan: Patient is a 37 year old male with past medical history that is significant for cervical radiculopathy with herniated disc, cervical spondylosis with myelopathy, thoracic spondylosis, and depression that presented to the emergency room with visual hallucinations. 1. Fever. Unclear etiology. Febrile. Blood cultures negative. Urinalysis negative for infection. Chest xray with no active disease. CT chest/abd/pelvis per radiologist shows no acute intra-abdominal or intrathoracic findings; disc degeneration with large osteophytes projecting posteriorly throughout the spine ; the largest osteophyte is seen in the lower cervical spine. MRI brain per radiologist shows unremarkable pre-and postcontrast enhanced MRI of the brain; no evidence of herpes encephalitis. ID following, recommendations appreciated. Neurology following, pending spinal tap. Continue vancomycin, meropenem, and acyclovir. 2. Acute delirium. Likely secondary to chronic opioid use and polypharmacy. May be secondary to unlcear underlying infection. Waxes and wanes. May also have withdrawal. Improved with oxycodone. Urinalysis negative for infection. Blood culture with no growth. Repeat urine and blood cultures with no growth. Chest x-ray on 11/13/2017 shows no interval cardiopulmonary disease appreciated. Psychiatrist following, recommendations appreciated. Continue scheduled Ativan 1 mg by mouth every 12 hours. Continue Seroquel. Continue Haldol and Ativan and as needed. Continue Avasys monitoring. Continue supportive care. CT chest/abdomen/pelvis as above. 3. Leukocytosis. May be reactive vs possible underlying infection. Stable. CT chest/abdomen/pelvis as above. ID consulted, recommendations appreciated. Continue to monitor. 4. Hyperthyroidism. Endocrinology following, recommendations appreciated. Continue propranolol and methimazole. 5. Essential hypertension. Continue lisinopril, Norvasc, and propanolol. 6. Constipation. Continue Colace and Miralax. Patient is having bowel movements. 7. Hypokalemia. Resolved. Continue to monitor. Case discussed in detail with the patient regarding current diagnosis and treatment plan
[2017-11-19] MEDS: oxyCODONE 30 mg Immediate Release Tab PO SCH ×4 (00:07→18:03)
[2017-11-19] MEDS: Meropenem IV 1 gm in NS 50 ML IVPB SCH ×3 (04:59→22:01)
[2017-11-19 08:12] LABS: BASO # 0.01 K/mm3 (0.0-2.0); BASO % 0.1 % (0.0-3.0); EOS # 0.1 (0.0-0.7); EOS % 0.5 % (1.5-5.0); GRAN # 8.5 (1.4-6.5); GRAN % 81.7 % (50.0-68.0); LYMPH # 1.3 (1.2-3.4); LYMPH % 12.5 % (22.0-35.0); MEAN CELL VOLUME 85.4 fl (80.0-105.0); MEAN CORPUSCULAR HEMOGLOBIN 27.7 pg (25.0-35.0); MEAN CORPUSCULAR HGB CONC 32.4 g/dl (31.0-37.0); MEAN PLATELET VOLUME 9.9 fl (7.0-11.0); MONO # 0.5 (0.1-0.6); MONO % 5.2 % (1.0-6.0); RBC 3.97 10^6/uL (3.5-6.1); RED CELL DISTRIBUTION WIDTH 13.7 % (11.5-14.5); WHITE BLOOD COUNT 10.4 10^3/ul (4.5-11.0)
[2017-11-19 08:21] LABS: ALBUMIN 3.4 g/dL (3.0-4.8); ALT/SGPT 135 U/L (7-56); AST/SGOT 38 U/L (17-59); BLOOD UREA NITROGEN 12 mg/dL (7-21); CALCIUM 8.9 mg/dL (8.4-10.5); GFR NON-AFRICAN AMERICAN > 60
[2017-11-19] MEDS: Vancomycin 1gm in NS 250ml 1 GM/250 ML BAG IVPB SCH ×2 (09:17→22:23)
[2017-11-19] MEDS: methIMAzole 5 MG TAB PO SCH ×3 (09:17→18:03)
[2017-11-19] MEDS: Enoxaparin 40 mg Syringe SC SCH (09:18)
[2017-11-19] MEDS: Nystatin 100,000 Units/gm Topical Pow(15 gm) TOP SCH ×2 (09:20→18:06)
[2017-11-19] MEDS ORDERED: Iohexol 350 MG/100 ML VIAL ONE (12:20)
--- NOTE | 2017-11-19 13:34 | PN ---
DATE: 11/19/2017 SUBJECTIVE: The patient is in bed, in no acute distress, nontoxic. PHYSICAL EXAMINATION: VITAL SIGNS: On exam, temperature is 99, T-max is 102.8, respiratory rate of 20, heart rate of 111. HEENT: Examination of HEENT is unremarkable. NECK: Supple. LUNGS: Have decreased breath sounds. HEART: Normal S1, S2. ABDOMEN: Soft. LABORATORY DATA: Laboratory examination reveals a white count of 10,000. Coagulation is noted. Chemistries are noted. Urinalysis is noted. Serology is negative. HIV is negative. Microbiology reveals the urine cultures negative. Blood cultures are negative. ASSESSMENT AND PLAN: A 37-year-old male with headaches, fever, gastroesophageal reflux disease. depression. Continues to have fever. Awaiting for a spinal tap and leukocytosis improved. Negative MRI. Etiology of the fever is unclear with negative CAT scan of the chest, negative CAT scan of the abdomen and negative cultures. We will follow closely with you. Case discussed with PMD regarding the spinal tap. Arias Aviles MD
--- NOTE | 2017-11-19 14:16 | CP.PCM.PN ---
<Norma Mccartney - Last Filed: 11/19/17 14:17> Subjective - Date & Time of Evaluation Date of Evaluation: 11/19/17 Time of Evaluation: 14:13 - Subjective Subjective: Norma Mccartney PGY2 Medicine Progress Note for Dr. Denia Clinton Patient was seen and examined at bedside this morning. Patient's mental status has significantly improved today. He was AAOx3 to person, place, time. Patient complains of neck pain and some pain in his abdomen. Patient's 102.8 overnight. He denies chest pain, nausea, vomiting, or fever. He is not hallucinating at the time of my examination. Objective - Vital Signs/Intake and Output Vital Signs (last 24 hours): Temp Pulse Resp BP Pulse Ox 99.4 F 100 H 20 140/92 H 98 11/19/17 06:00 11/19/17 09:18 11/19/17 06:00 11/19/17 09:19 11/19/17 06:00 Intake and Output: 11/19/17 11/19/17 06:59 18:59 Intake Total 240 Output Total 1100 Balance -860 - Medications Medications: Current Medications Acetaminophen (Tylenol 325mg Tab) 650 mg PO Q4H PRN PRN Reason: Fever >100.4 F Last Admin: 11/19/17 04:58 Dose: 650 mg Amlodipine Besylate (Norvasc) 10 mg PO DAILY [facility] Last Admin: 11/19/17 09:19 Dose: 10 mg Docusate Sodium (Colace Liquid) 100 mg PO TID [facility] Last Admin: 11/19/17 09:17 Dose: 100 mg Doxycycline Hyclate (Doryx) 100 mg PO Q12 [facility] PRN Reason: Protocol Stop: 11/24/17 22:01 Last Admin: 11/19/17 09:19 Dose: 100 mg Enoxaparin Sodium (Lovenox) 40 mg SC DAILY [facility] PRN Reason: Protocol Last Admin: 11/19/17 09:18 Dose: 40 mg Famotidine (Pepcid) 20 mg PO 1000 [facility] Last Admin: 11/19/17 09:19 Dose: 20 mg Haloperidol Lactate (Haldol) 4 mg IM Q6 PRN; Protocol PRN Reason: Agitation Meropenem (Merrem Iv 1 Gm Premix) 50 mls @ 100 mls/hr IVPB Q8 [facility] PRN Reason: Protocol Stop: 11/24/17 22:01 Last Admin: 11/19/17 04:59 Dose: 100 mls/hr Vancomycin HCl (Vancomycin 1gm) 1 gm in 250 mls @ 167 mls/hr IVPB Q12H [facility] PRN Reason: Protocol Stop: 11/24/17 20:31 Last Admin: 11/19/17 09:17 Dose: 167 mls/hr Acyclovir 750 mg/ Sodium (Chloride) 100 mls @ 100 mls/hr IV Q8 [facility] PRN Reason: Protocol Stop: 11/24/17 22:01 Last Admin: 11/19/17 08:04 Dose: 100 mls/hr Sodium Chloride (Sodium Chloride 0.9%) 1,000 mls @ 100 mls/hr IV .Q10H [facility] Stop: 11/20/17 07:59 Ibuprofen (Motrin Tab) 400 mg PO Q6H PRN PRN Reason: Pain, moderate (4-7) Last Admin: 11/19/17 04:58 Dose: 400 mg Lisinopril (Zestril) 20 mg PO BID [facility] Last Admin: 11/19/17 09:19 Dose: 20 mg Lorazepam (Ativan) 1 mg PO Q6H PRN; Protocol PRN Reason: Agitation Last Admin: 11/12/17 18:13 Dose: 1 mg Lorazepam (Ativan) 1 mg PO Q12 [facility] PRN Reason: Protocol Last Admin: 11/19/17 09:19 Dose: 1 mg Methimazole (Tapazole) 10 mg PO TID [facility] Last Admin: 11/19/17 09:17 Dose: 10 mg Nystatin (Nystop Topical Powder) 0 gm TOP BID [facility] Last Admin: 11/19/17 09:20 Dose: 1 applic Ondansetron HCl (Zofran Inj) 4 mg IVP Q4H PRN PRN Reason: Nausea/Vomiting Last Admin: 11/18/17 20:08 Dose: 4 mg Oxycodone HCl (Oxycodone Immediate Release Tab) 30 mg PO Q6 [facility] Last Admin: 11/19/17 09:18 Dose: 30 mg Polyethylene Glycol (Miralax) 17 gm PO BID PRN PRN Reason: Constipation Last Admin: 11/18/17 11:59 Dose: 17 gm Propranolol HCl (Inderal) 10 mg PO TID [facility] Last Admin: 11/19/17 09:18 Dose: 10 mg Quetiapine Fumarate (Seroquel) 12.5 mg PO [facility] PRN; Protocol PRN Reason: disorganized thoughts/psychosi - Labs Labs: 11/19/17 07:00 11/19/17 07:00 - Constitutional Appears: Non-toxic - Head Exam Head Exam: ATRAUMATIC, NORMOCEPHALIC - Eye Exam Eye Exam: EOMI, Normal appearance - ENT Exam ENT Exam: Mucous Membranes Dry - Neck Exam Neck Exam: Normal Inspection - Respiratory Exam Respiratory Exam: Clear to Ausculation Bilateral, NORMAL BREATHING PATTERN. absent: Accessory Muscle Use - Cardiovascular Exam Cardiovascular Exam: Tachycardia, +S1, +S2 - GI/Abdominal Exam GI & Abdominal Exam: Soft, Normal Bowel Sounds - Extremities Exam Extremities Exam: absent: Calf Tenderness - Back Exam Back Exam: absent: CVA tenderness (L), CVA tenderness (R) Additional comments: post-surgical changes noted - Neurological Exam Neurological Exam: Awake, Oriented x3 - Psychiatric Exam Psychiatric exam: Normal Affect, Normal Mood - Skin Skin Exam: Dry, Intact, Normal Color, Warm Assessment and Plan - Assessment and Plan (Free Text) Assessment: Patient is a 37 year old male with a PMHx of cervical radiculopathy w/ herniated disc, cervical spondylosis w/ myelopathy, thoracic spondylosis and depression under hospital management for acute delirium. Currently suspect delirium 2/2 to chronic opiate usage. Patient's delirium has improved. Continue to monitor on the floor. Neurology on board. Patient refused LP today. Computed tomography of cervical, thoracic, and lumbar spine with contrast ordered and the patient was put on NS to avoid kidney injury. Plan: Acute Delerium 2/2 Chronic Opiate Use - improving -As per neurology, patient may need spinal tap tomorrow. -c/w Percocet q6 prn for pain control -AAOx3 on exam today -Psych recs appreciated. Patient lacks capacity. -AMS likely 2/2 opiates, benzos which have extended half life. -history of chronic back pain with multiple cervical/thoracic laminectomies with butcher meat opiate use -moderate fall risk precautions -blood culture negative thus far -Head CT on 11/06: no acute intracranial pathology -currently on AVASYS for monitoring -Neuro signed off case. Plan to reconsult. Transaminitis -CT Chest/Abd/Pelvis (11/16): no acute intra-abdominal or intra-thoracic findings. Disc degeneration with large osteophytes throughout spine. -continue to monitor SIRS criteria met -ID recs apprecaited; c/w doxy, gilma, vanco, and acyclovir -Brain MRI: no evidence of herpes encephalitis -No leukocytosis -CT Chest/Abd/Pelvis (11/16): no acute findings -Blood cx negative x2 -UA negative - HTN -BP normotensive -c/w zestril, propanolol and amlodipine -will monitor Hyperthyroidism -Endocrine recs appreciated. -T4 17, TSH .09 on repeat labs (prior T4/TSH was 12.7/.22) -c/w propranolol and methimazole Constipation 2/2 Chronic Opiate Use -Large bowel movement yesterday -c/w coalce and mirilax -regular diet DVT ppx: Lovenox GI ppx: pepcid Dispo: continue to monitor patient on the floor. Improved mental status. Case was discussed and reviewed with attending, Dr. Clinton. <Denia Clinton R - Last Filed: 11/19/17 15:10> Objective - Vital Signs/Intake and Output Vital Signs (last 24 hours): Temp Pulse Resp BP Pulse Ox 99.8 F H 107 H 17 122/83 97 11/19/17 14:00 11/19/17 14:00 11/19/17 14:00 11/19/17 14:00 11/19/17 14:00 Intake and Output: 11/19/17 11/19/17 06:59 18:59 Intake Total 240 Output Total 1100 Balance -860 - Medications Medications: Current Medications Acetaminophen (Tylenol 325mg Tab) 650 mg PO Q4H PRN PRN Reason: Fever >100.4 F Last Admin: 11/19/17 04:58 Dose: 650 mg Amlodipine Besylate (Norvasc) 10 mg PO DAILY [facility] Last Admin: 11/19/17 09:19 Dose: 10 mg Docusate Sodium (Colace Liquid) 100 mg PO TID [facility] Last Admin: 11/19/17 14:44 Dose: Not Given Doxycycline Hyclate (Doryx) 100 mg PO Q12 [facility] PRN Reason: Protocol Stop: 11/24/17 22:01 Last Admin: 11/19/17 09:19 Dose: 100 mg Enoxaparin Sodium (Lovenox) 40 mg SC DAILY [facility] PRN Reason: Protocol Last Admin: 11/19/17 09:18 Dose: 40 mg Famotidine (Pepcid) 20 mg PO 1000 [facility] Last Admin: 11/19/17 09:19 Dose: 20 mg Haloperidol Lactate (Haldol) 4 mg IM Q6 PRN; Protocol PRN Reason: Agitation Meropenem (Merrem Iv 1 Gm Premix) 50 mls @ 100 mls/hr IVPB Q8 [facility] PRN Reason: Protocol Stop: 11/24/17 22:01 Last Admin: 11/19/17 14:43 Dose: 100 mls/hr Vancomycin HCl (Vancomycin 1gm) 1 gm in 250 mls @ 167 mls/hr IVPB Q12H [facility] PRN Reason: Protocol Stop: 11/24/17 20:31 Last Admin: 11/19/17 09:17 Dose: 167 mls/hr Acyclovir 750 mg/ Sodium (Chloride) 100 mls @ 100 mls/hr IV Q8 [facility] PRN Reason: Protocol Stop: 11/24/17 22:01 Last Admin: 11/19/17 14:42 Dose: 100 mls/hr Sodium Chloride (Sodium Chloride 0.9%) 1,000 mls @ 100 mls/hr IV .Q10H [facility] Stop: 11/20/17 07:59 Ibuprofen (Motrin Tab) 400 mg PO Q6H PRN PRN Reason: Pain, moderate (4-7) Last Admin: 11/19/17 04:58 Dose: 400 mg Lisinopril (Zestril) 20 mg PO BID [facility] Last Admin: 11/19/17 09:19 Dose: 20 mg Lorazepam (Ativan) 1 mg PO Q6H PRN; Protocol PRN Reason: Agitation Last Admin: 11/12/17 18:13 Dose: 1 mg Lorazepam (Ativan) 1 mg PO Q12 [facility] PRN Reason: Protocol Last Admin: 11/19/17 09:19 Dose: 1 mg Methimazole (Tapazole) 10 mg PO TID [facility] Last Admin: 11/19/17 14:43 Dose: 10 mg Nystatin (Nystop Topical Powder) 0 gm TOP BID [facility] Last Admin: 11/19/17 09:20 Dose: 1 applic Ondansetron HCl (Zofran Inj) 4 mg IVP Q4H PRN PRN Reason: Nausea/Vomiting Last Admin: 11/18/17 20:08 Dose: 4 mg Oxycodone HCl (Oxycodone Immediate Release Tab) 30 mg PO Q6 [facility] Last Admin: 11/19/17 14:43 Dose: 30 mg Polyethylene Glycol (Miralax) 17 gm PO BID PRN PRN Reason: Constipation Last Admin: 11/18/17 11:59 Dose: 17 gm Propranolol HCl (Inderal) 10 mg PO TID [facility] Last Admin: 11/19/17 14:43 Dose: 10 mg Quetiapine Fumarate (Seroquel) 12.5 mg PO [facility] PRN; Protocol PRN Reason: disorganized thoughts/psychosi - Labs Labs: 11/19/17 07:00 11/19/17 07:00 Attending/Attestation - Attestation I have personally seen and examined this patient.: Yes I have fully participated in the care of the patient.: Yes I have reviewed all pertinent clinical information, including history, physical exam and plan: Yes Notes (Text): Patient seen and examined by me at 10:30 AM with resident. Case including HPI, physical exam, and assessment and plan discussed with resident. Agree with above with following additions/corrections. Patient is a 37 year old male with past medical history that is significant for cervical radiculopathy with herniated disc, cervical spondylosis with myelopathy , thoracic spondylosis, and depression that presented to the emergency room with visual hallucinations. Patient is awake and alert and answering questions. Oriented to self and place, not time. Still with neck pain and headache. Patient states he has had epidurals in the past and finds them to be to painful. Lumbar puncture discussed with patient, he is refusing. No chest pain or shortness of breath. No nausea or vomiting. No abdominal pain. No dizziness. No dysuria. No acute issues overnight per patient's nurse. Patient is having bowel movements. Patient is again febrile. Physical exam: General: Awake and alert sitting up in bed in no acute distress HEENT: Normocephalic atraumatic. Pupils equal reactive. No scleral icterus. Oropharynx is pink and moist. Poor dentition. Neck is supple. Cardiovascular: Normal rhythm. Normal S1, S2. No murmurs, rubs, or gallops appreciated Pulmonary: Normal respiratory effort. No rhonchi, rales or wheezing appreciated. Gastrointestinal: Soft, nondistended. Mild generalized tenderness with deep palpation. Positive bowel sounds all 4 quadrants, no guarding. Musculoskeletal: Moves all extremities, no calf tenderness, no edema appreciated. Positive cervical spine tenderness. Central nervous system: Awake and alert. Oriented x2. Dermatologic: Skin warm and dry. Positive well healed scar on back. Assessment and plan: Patient is a 37 year old male with past medical history that is significant for cervical radiculopathy with herniated disc, cervical spondylosis with myelopathy, thoracic spondylosis, and depression that presented to the emergency room with visual hallucinations. 1. Fever. Unclear etiology. Continues to have intermittent fevers. ID following , recommendations appreciated. Neurology following, patient now refusing spinal tap. Will get CT of cervical/thoracic/lumbar spine to rule out any other source of infection. Continue vancomycin, meropenem, and acyclovir. Blood cultures negative. Urinalysis negative for infection. Chest xray with no active disease. CT chest/abd/pelvis per radiologist shows no acute intra-abdominal or intrathoracic findings; disc degeneration with large osteophytes projecting posteriorly throughout the spine; the largest osteophyte is seen in the lower cervical spine. MRI brain per radiologist shows unremarkable pre-and postcontrast enhanced MRI of the brain; no evidence of herpes encephalitis. 2. Acute delirium. Likely secondary to chronic opioid use and polypharmacy. May be secondary to unlcear underlying infection. Waxes and wanes. May also have withdrawal. Continues to improve with restarting of oxycodone. Urinalysis negative for infection. Blood culture with no growth. Repeat urine and blood cultures with no growth. Chest x-ray on 11/13/2017 shows no interval cardiopulmonary disease appreciated. Psychiatrist following, recommendations appreciated. Continue scheduled Ativan 1 mg by mouth every 12 hours. Continue Seroquel. Continue Haldol and Ativan and as needed. Continue Avasys monitoring. Continue supportive care. CT chest/abdomen/pelvis as above. 3. Leukocytosis. May be reactive vs possible underlying infection. Resolved today. CT chest/abdomen/pelvis as above. ID consulted, recommendations appreciated. Continue to monitor. 4. Hyperthyroidism. Endocrinology following, recommendations appreciated. Continue propranolol and methimazole. 5. Essential hypertension. Continue lisinopril, Norvasc, and propanolol. 6. Constipation. Continue Colace and Miralax. Patient is having bowel movements. 7. Hypokalemia. Resolved. Continue to monitor. Case discussed in detail with the patient regarding current diagnosis and treatment plan
[2017-11-19] MEDS ORDERED: Bisacodyl 5mg EC Tab PO ONE (15:48)
--- NOTE | 2017-11-19 16:13 | CT ---
Date of service: 11/19/2017 PROCEDURE: CT Lumbar Spine without contrast HISTORY: r/o abscess, fever COMPARISON: None available. TECHNIQUE: Axial computed tomography images were obtained of the lumbar spine without the use of intravenous contrast. Coronal and sagittal reformatted images were created and reviewed. Radiation dose: Total exam DLP = 1928 mGy-cm. This CT exam was performed using one or more of the following dose reduction techniques: Automated exposure control, adjustment of the mA and/or kV according to patient size, and/or use of iterative reconstruction technique. FINDINGS: VERTEBRAE: Unremarkable. No fracture. Normal alignment. DISCS/SPINAL CANAL/NEURAL FORAMINA: L1-2: Unremarkable. L2-3: Unremarkable. L3-4: There is a moderate size central osteophyte at L3-4 measuring 8 x 13 mm. Mild central stenosis L4-5: Small central osteophyte at L4-5 without stenosis L5-S1: Unremarkable. PARASPINAL SOFT TISSUES: Unremarkable. OTHER FINDINGS: None. IMPRESSION: Central osteophytes at L3-4 and L4-5. No evidence of discitis or osteomyelitis. No evidence of abscess
[2017-11-19] MEDS: Sodium Chloride 0.9% 1,000 ML IV SCH (16:20)
--- NOTE | 2017-11-19 16:28 | CT ---
Date of service: 11/19/2017 PROCEDURE: CT Thoracic Spine with contrast HISTORY: fever, hx of surgery, r/o infection COMPARISON: None available. TECHNIQUE: Axial computed tomography images were obtained of the thoracic spine were obtained, following administration of intravenous iodinated contrast. Coronal and sagittal reformatted images were created and reviewed. Intravenous contrast dose: 100 cc of Omni 350 Radiation dose: Total exam DLP = 1305 mGy-cm. This CT exam was performed using one or more of the following dose reduction techniques: Automated exposure control, adjustment of the mA and/or kV according to patient size, and/or use of iterative reconstruction technique. FINDINGS: VERTEBRAE: Unremarkable. No fracture. Normal alignment. DISCS/SPINAL CANAL/NEURAL FORAMINA: Multiple posterior osteophytes are seen throughout the thoracic spine. The largest osteophytes are seen at T4-5 and T5-6 as well as T9-10. There is mild to moderate stenosis at these levels. There is no evidence of disc space infection or osteomyelitis. PARASPINAL SOFT TISSUES: Unremarkable. ENHANCEMENT: No abnormal enhancement. OTHER FINDINGS: Unremarkable. IMPRESSION: Multiple posterior osteophytes are seen throughout the thoracic spine. The largest osteophytes are seen at T4-5 and T5-6 as well as T9-10. There is mild to moderate stenosis at these levels. There is no evidence of disc space infection or osteomyelitis.
--- NOTE | 2017-11-19 16:36 | CT ---
Date of service: 11/19/2017 PROCEDURE: CT Cervical Spine with contrast HISTORY: rule out abscess COMPARISON: None available. TECHNIQUE: Axial computed tomography images were obtained of the cervical spine without the use of intravenous contrast. Coronal and sagittal reformatted images were created and reviewed. 100 cc of Omni 350 Radiation dose: Total exam DLP = 820 mGy-cm. This CT exam was performed using one or more of the following dose reduction techniques: Automated exposure control, adjustment of the mA and/or kV according to patient size, and/or use of iterative reconstruction technique. FINDINGS: VERTEBRAE: No fracture. Normal alignment. No destructive bony lesion. DISCS/SPINAL CANAL/NEURAL FORAMINA: There is a large uncovertebral osteophyte on the right side at C4-5 producing severe foraminal stenosis. There is also moderate to severe stenosis on the left and moderate central stenosis. There is a pattern of heavy ossification of the posterior longitudinal ligament consistent with OPAL. There is a large central osteophyte at C5-6. There is a large right-sided paracentral osteophyte at C6-7. There has been previous fusion at C6-7. A smaller osteophyte is seen to the right of midline at C7-T1. PARASPINAL SOFT TISSUES: Unremarkable. OTHER FINDINGS: None. IMPRESSION: Large central osteophytes and opacification of the longitudinal ligament in the lower cervical spine with severe spinal stenosis. No evidence of abscess or osteomyelitis
[2017-11-20] MEDS: oxyCODONE 30 mg Immediate Release Tab PO SCH ×4 (01:05→17:18)
[2017-11-20] MEDS: Meropenem IV 1 gm in NS 50 ML IVPB SCH ×3 (06:12→21:38)
[2017-11-20] MEDS: Sodium Chloride 0.9% 1,000 ML IV SCH (06:36)
[2017-11-20 07:29] LABS: ALBUMIN 3.2 g/dL (3.0-4.8); ALT/SGPT 119 U/L (7-56); AST/SGOT 34 U/L (17-59); BLOOD UREA NITROGEN 9 mg/dL (7-21); GFR NON-AFRICAN AMERICAN > 60
--- NOTE | 2017-11-20 09:58 | CP.PCM.PN ---
<Norma Mccartney - Last Filed: 11/20/17 13:50> Subjective - Date & Time of Evaluation Date of Evaluation: 11/20/17 Time of Evaluation: 09:58 - Subjective Subjective: Norma Mccartney, PGY2 Medicine Progress Note for Dr. Denia Clinton Patient was seen and examined at bedside this morning. Patient's mental status has significantly improved and he shows no signs of hallucinations. He was AAOx3 to person, place, time. He was resting comfortably at the time of examination. He was afebrile overnight. He denies chest pain, nausea, vomiting, or fever. Nurse reports he passed a BM on Tuesday. Objective - Vital Signs/Intake and Output Vital Signs (last 24 hours): Temp Pulse Resp BP Pulse Ox 98.6 F 100 H 18 131/87 96 11/20/17 06:00 11/20/17 06:00 11/20/17 06:00 11/20/17 06:00 11/20/17 06:00 Intake and Output: 11/20/17 11/20/17 06:59 18:59 Intake Total 1200 Output Total 1500 Balance -300 - Medications Medications: Current Medications Acetaminophen (Tylenol 325mg Tab) 650 mg PO Q4H PRN PRN Reason: Fever >100.4 F Last Admin: 11/19/17 04:58 Dose: 650 mg Amlodipine Besylate (Norvasc) 10 mg PO DAILY [facility] Last Admin: 11/19/17 09:19 Dose: 10 mg Docusate Sodium (Colace) 100 mg PO TID [facility] Last Admin: 11/19/17 18:02 Dose: 100 mg Doxycycline Hyclate (Doryx) 100 mg PO Q12 [facility] PRN Reason: Protocol Stop: 11/24/17 22:01 Last Admin: 11/19/17 22:02 Dose: 100 mg Enoxaparin Sodium (Lovenox) 40 mg SC DAILY [facility] PRN Reason: Protocol Last Admin: 11/19/17 09:18 Dose: 40 mg Famotidine (Pepcid) 20 mg PO 1000 [facility] Last Admin: 11/19/17 09:19 Dose: 20 mg Haloperidol Lactate (Haldol) 4 mg IM Q6 PRN; Protocol PRN Reason: Agitation Meropenem (Merrem Iv 1 Gm Premix) 50 mls @ 100 mls/hr IVPB Q8 [facility] PRN Reason: Protocol Stop: 11/24/17 22:01 Last Admin: 11/20/17 06:12 Dose: 100 mls/hr Vancomycin HCl (Vancomycin 1gm) 1 gm in 250 mls @ 167 mls/hr IVPB Q12H [facility] PRN Reason: Protocol Stop: 11/24/17 20:31 Last Admin: 11/19/17 22:23 Dose: 167 mls/hr Acyclovir 750 mg/ Sodium (Chloride) 100 mls @ 100 mls/hr IV Q8 [facility] PRN Reason: Protocol Stop: 11/24/17 22:01 Last Admin: 11/20/17 06:18 Dose: 100 mls/hr Ibuprofen (Motrin Tab) 400 mg PO Q6H PRN PRN Reason: Pain, moderate (4-7) Last Admin: 11/19/17 04:58 Dose: 400 mg Lisinopril (Zestril) 20 mg PO BID [facility] Last Admin: 11/19/17 18:02 Dose: 20 mg Lorazepam (Ativan) 1 mg PO Q6H PRN; Protocol PRN Reason: Agitation Last Admin: 11/12/17 18:13 Dose: 1 mg Lorazepam (Ativan) 1 mg PO Q12 [facility] PRN Reason: Protocol Last Admin: 11/19/17 22:01 Dose: 1 mg Methimazole (Tapazole) 10 mg PO TID [facility] Last Admin: 11/19/17 18:03 Dose: 10 mg Nystatin (Nystop Topical Powder) 0 gm TOP BID [facility] Last Admin: 11/19/17 18:06 Dose: 1 applic Ondansetron HCl (Zofran Inj) 4 mg IVP Q4H PRN PRN Reason: Nausea/Vomiting Last Admin: 11/18/17 20:08 Dose: 4 mg Oxycodone HCl (Oxycodone Immediate Release Tab) 30 mg PO Q6 [facility] Last Admin: 11/20/17 06:16 Dose: 30 mg Polyethylene Glycol (Miralax) 17 gm PO BID PRN PRN Reason: Constipation Last Admin: 11/18/17 11:59 Dose: 17 gm Propranolol HCl (Inderal) 10 mg PO TID [facility] Last Admin: 11/19/17 18:02 Dose: 10 mg Quetiapine Fumarate (Seroquel) 12.5 mg PO [facility] PRN; Protocol PRN Reason: disorganized thoughts/psychosi - Labs Labs: 11/19/17 07:00 11/20/17 06:30 - Constitutional Appears: Non-toxic, No Acute Distress - Head Exam Head Exam: ATRAUMATIC, NORMOCEPHALIC - Eye Exam Eye Exam: EOMI, Normal appearance - ENT Exam ENT Exam: Mucous Membranes Dry - Respiratory Exam Respiratory Exam: Clear to Ausculation Bilateral. absent: Accessory Muscle Use - Cardiovascular Exam Cardiovascular Exam: RRR, +S1, +S2 - GI/Abdominal Exam GI & Abdominal Exam: Soft, Normal Bowel Sounds - Extremities Exam Extremities Exam: Normal Inspection. absent: Calf Tenderness - Neurological Exam Neurological Exam: Alert, Oriented x3 Additional comments: sleepy but arousable - Psychiatric Exam Psychiatric exam: Normal Affect, Normal Mood - Skin Skin Exam: Dry, Intact, Normal Color, Warm Assessment and Plan - Assessment and Plan (Free Text) Assessment: Patient is a 37 year old male with a PMHx of cervical radiculopathy w/ herniated disc, cervical spondylosis w/ myelopathy, thoracic spondylosis and depression under hospital management for acute delirium. Currently suspect delirium 2/2 to chronic opiate usage. Patient's delirium has improved. Continue to monitor on the floor. Neurology on board. Patient refused LP today. Computed tomography of cervical, thoracic, and lumbar spine with contrast showed osteophytes/chronic changes but no evidence of abscess or infection. Neurology and ID following. Patient mental status has improved Acute Delerium 2/2 Chronic Opiate Use - improving -As per neurology, patient may need spinal tap tomorrow. -c/w Percocet q6 prn for pain control -AAOx3 on exam today -Psych recs appreciated. Patient lacks capacity. -AMS likely 2/2 opiates, benzos which have extended half life. 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 Disc degeneration with large osteophytes throughout spine. -continue to monitor SIRS criteria met -ID recs apprecaited; c/w doxy, gilma, vanco, and acyclovir -Brain MRI: no evidence of herpes encephalitis -No leukocytosis -CT Chest/Abd/Pelvis (11/16): no acute findings -Blood cx negative x2 -UA negative - HTN -BP normotensive -c/w zestril, propanolol and amlodipine -will monitor Hyperthyroidism -Endocrine recs appreciated. -T4 17, TSH .09 on repeat labs (prior T4/TSH was 12.7/.22) -c/w propranolol and methimazole Constipation 2/2 Chronic Opiate Use -Large bowel movement yesterday -c/w coalce and mirilax -regular diet DVT ppx: Lovenox GI ppx: pepcid Dispo: continue to monitor patient on the floor. Improved mental status. Case was discussed and reviewed with attending, Dr. Clinton. <Denia Clinton R - Last Filed: 11/24/17 12:10> Objective - Vital Signs/Intake and Output Vital Signs (last 24 hours): Temp Pulse Resp BP Pulse Ox 98.7 F 106 H 20 132/87 98 11/24/17 06:00 11/24/17 11:26 11/24/17 06:00 11/24/17 11:26 11/24/17 06:00 Intake and Output: 11/24/17 11/24/17 06:59 18:59 Intake Total 480 Output Total 200 Balance 280 - Medications Medications: Current Medications Acetaminophen (Tylenol 325mg Tab) 650 mg PO Q4H PRN PRN Reason: Fever >100.4 F Last Admin: 11/23/17 18:10 Dose: 650 mg Amlodipine Besylate (Norvasc) 10 mg PO DAILY [facility] Last Admin: 11/24/17 11:23 Dose: 10 mg Docusate Sodium (Colace) 100 mg PO TID [facility] Last Admin: 11/24/17 11:25 Dose: 100 mg Enoxaparin Sodium (Lovenox) 40 mg SC DAILY [facility] PRN Reason: Protocol Last Admin: 11/24/17 11:26 Dose: 40 mg Famotidine (Pepcid) 20 mg PO 1000 [facility] Last Admin: 11/24/17 11:25 Dose: 20 mg Haloperidol Lactate (Haldol) 4 mg IM Q6 PRN; Protocol PRN Reason: Agitation Ibuprofen (Motrin Tab) 400 mg PO Q6H PRN PRN Reason: Pain, moderate (4-7) Last Admin: 11/19/17 04:58 Dose: 400 mg Lisinopril (Zestril) 20 mg PO BID [facility] Last Admin: 11/24/17 11:25 Dose: 20 mg Lorazepam (Ativan) 1 mg PO Q6H PRN; Protocol PRN Reason: Agitation Last Admin: 11/21/17 16:06 Dose: 1 mg Lorazepam (Ativan) 1 mg PO Q12 [facility] PRN Reason: Protocol Last Admin: 11/24/17 11:25 Dose: 1 mg Methimazole (Tapazole) 10 mg PO TID [facility] Last Admin: 11/24/17 11:24 Dose: 10 mg Nystatin (Nystop Topical Powder) 0 gm TOP BID [facility] Last Admin: 11/24/17 11:29 Dose: 1 applic Oxycodone HCl (Oxycodone Immediate Release Tab) 30 mg PO Q6 [facility] Last Admin: 11/24/17 05:07 Dose: 30 mg Polyethylene Glycol (Miralax) 17 gm PO BID PRN PRN Reason: Constipation Last Admin: 11/24/17 11:22 Dose: 17 gm Propranolol HCl (Inderal) 20 mg PO TID [facility] Last Admin: 11/24/17 11:26 Dose: 20 mg Quetiapine Fumarate (Seroquel) 12.5 mg PO [facility] PRN; Protocol PRN Reason: disorganized thoughts/psychosi - Labs Labs: 11/24/17 06:20 11/24/17 06:20 Attending/Attestation - Attestation I have personally seen and examined this patient.: Yes I have fully participated in the care of the patient.: Yes I have reviewed all pertinent clinical information, including history, physical exam and plan: Yes Notes (Text): Patient seen and examined by me at 10:40 AM with resident 11/20/17. Case including HPI, physical exam, and assessment and plan discussed with resident. Agree with above with following additions/corrections. Patient is a 37 year old male with past medical history that is significant for cervical radiculopathy with herniated disc, cervical spondylosis with myelopathy , thoracic spondylosis, and depression that presented to the emergency room with visual hallucinations. Patient states he is feeling ok. He is currently denying any pain. Currently denying neck pain. Lumbar puncture again discussed with patient, he is adamantly refusing. No chest pain or shortness of breath. No nausea or vomiting. No abdominal pain. No dizziness. No dysuria. No acute issues overnight per patient's nurse. Per nurse, last bowel movement was 11/18/17. Patient afebrile today. Physical exam: General: Awake and alert sitting up in bed in no acute distress HEENT: Normocephalic atraumatic. Pupils equal reactive. No scleral icterus. Oropharynx is pink and moist. Poor dentition. Neck is supple. Cardiovascular: Normal rhythm. Normal S1, S2. No murmurs, rubs, or gallops appreciated Pulmonary: Normal respiratory effort. No rhonchi, rales or wheezing appreciated. Gastrointestinal: Soft, nondistended. Mild generalized tenderness with deep palpation. Positive bowel sounds all 4 quadrants, no guarding. Musculoskeletal: Moves all extremities, no calf tenderness, no edema appreciated. Positive cervical spine tenderness. Central nervous system: Awake and alert. Oriented x2. Dermatologic: Skin warm and dry. Positive well healed scar on back. Assessment and plan: Patient is a 37 year old male with past medical history that is significant for cervical radiculopathy with herniated disc, cervical spondylosis with myelopathy, thoracic spondylosis, and depression that presented to the emergency room with visual hallucinations. 1. Fever. Unclear etiology. Continues to have intermittent fevers. ID following , recommendations appreciated. Neurology following, patient now refusing spinal tap. Continue vancomycin, meropenem, and acyclovir. Blood cultures negative. Urinalysis negative for infection. CT cervical spine per radiologist shows large central osteophytes and opacification of the longitudinal ligament in the lower cervical spine with severe spinal stenosis, no evidence of abscess or osteomyelitis. CT thoracic spine shows multiple posterior osteophytes seen throughout the thoracic spine, largest osteophytes are seen at T4-T5 T5-T6 as well as T9-T10, mild to moderate stenosis at these levels, no evidence of disc space infection or osteomyelitis. CT lumbar spine per radiologist shows central osteophytes L3-L4 and L4-L5, no evidence of discitis or osteomyelitis, no evidence of abscess. Chest xray with no active disease. Will consult neurosurgery, follow up recommendations. CT chest/abd/pelvis per radiologist shows no acute intra-abdominal or intrathoracic findings; disc degeneration with large osteophytes projecting posteriorly throughout the spine; the largest osteophyte is seen in the lower cervical spine. MRI brain per radiologist shows unremarkable pre-and postcontrast enhanced MRI of the brain; no evidence of herpes encephalitis. 2. Acute delirium. Likely secondary to chronic opioid use and polypharmacy. May be secondary to unlcear underlying infection. Waxes and wanes. May also have withdrawal. Continues to improve with the restart of oxycodone. Urinalysis negative for infection. Blood culture with no growth. Repeat urine and blood cultures with no growth. Chest x-ray on 11/13/2017 shows no interval cardiopulmonary disease appreciated. Psychiatrist following, recommendations appreciated. Continue scheduled Ativan 1 mg by mouth every 12 hours. Continue Seroquel. Continue Haldol and Ativan and as needed. Continue Avasys monitoring. Continue supportive care. 3. Leukocytosis. May be reactive vs possible underlying infection. Resolved. ID consulted, recommendations appreciated. Continue to monitor. 4. Hyperthyroidism. Endocrinology following, recommendations appreciated. Continue propranolol and methimazole. 5. Essential hypertension. Continue lisinopril, Norvasc, and propanolol. 6. Constipation. Continue Colace and Miralax. Monitor for bowel movement. 7. Hypokalemia. Resolved. Continue to monitor. Case discussed in detail with the patient regarding current diagnosis and treatment plan
[2017-11-20] MEDS: Vancomycin 1gm in NS 250ml 1 GM/250 ML BAG IVPB SCH ×2 (10:33→20:50)
[2017-11-20] MEDS: Enoxaparin 40 mg Syringe SC SCH (10:34)
[2017-11-20] MEDS: POLYETHYLENE GLYCOL 3350 17 GM/Dose PACKET PO PRN (10:34)
[2017-11-20] MEDS: Nystatin 100,000 Units/gm Topical Pow(15 gm) TOP SCH ×2 (10:37→18:11)
[2017-11-20] MEDS: methIMAzole 5 MG TAB PO SCH ×3 (11:01→17:18)
--- NOTE | 2017-11-20 15:15 | PN ---
DATE: 11/20/2017 SUBJECTIVE: The patient is in bed, in no acute distress, afebrile now for almost 24 hours. PHYSICAL EXAMINATION: VITAL SIGNS: On exam, temperature is 98, blood pressure is 130/80, respiratory rate of 20, heart rate of 100. HEENT: Examination of HEENT is unremarkable. NECK: Supple. LUNGS: Have decreased breath sounds. HEART: Normal S1, S2. ABDOMEN: Soft. LABORATORY DATA: Laboratory examination reveals the white count is down to 10,000. Chemistries are noted. Procalcitonin is 0.05. Urinalysis is noted. Toxicology is reviewed. Benzodiazepines noted. Serology: HIV is negative and hepatitis is negative. Microbiology reveals the blood cultures and urine cultures are negative. The patient had a CAT scan of the lumbar spine, thoracic spine and cervical spine. No evidence of diskitis or osteomyelitis. No evidence of abscess on the lumbar spine and the thoracic spine. Mild to moderate stenosis. No evidence of disk space or osteomyelitis infection in cervical spine with unremarkable for any abscess or osteomyelitis. Microbiology reveals all the cultures are negative. Review of orders reveals the patient to be on doxycycline, meropenem, vancomycin and acyclovir. ASSESSMENT AND PLAN: A 37-year-old male who is confused, fevers. Negative CAT scan of the spine. Negative CAT scan of the chest. Negative CAT scan of the abdomen. Negative MRI of the head. Leukocytosis is resolved. Confusion and fevers have not been explained. I am awaiting for a spinal tap. Arias Aviles MD
[2017-11-21] MEDS: Meropenem IV 1 gm in NS 50 ML IVPB SCH ×3 (05:01→22:47)
[2017-11-21] MEDS: oxyCODONE 30 mg Immediate Release Tab PO SCH ×5 (05:02→18:31)
[2017-11-21 07:35] LABS: FREE T4 1.85 ng/dL (0.78-2.19); T4 13.5 ug/dL (5.5-11.0)
--- NOTE | 2017-11-21 08:32 | CP.PCM.PN ---
<VicenteEvie mckeon - Last Filed: 11/21/17 15:04> Subjective - Date & Time of Evaluation Date of Evaluation: 11/21/17 Time of Evaluation: 08:32 - Subjective Subjective: [id number] ID Progress note for Dr. Rosario Patient seen and examined at bedside. Patient was ao x 3 but drowsy. He complained of a 4/10 frontal headache and neck pain. He had a low grade temp overnight 100.3F. Patient reported he was also having abdominal discomfort and a decreased appetite but denied any nausea, vomiting, changes in bowel/bladder habits. He is bedbound at home and has a paralyzed LLE but could not explain for how long or why. Other ROS negative unless otherwise stated. Objective - Vital Signs/Intake and Output Vital Signs (last 24 hours): Temp Pulse Resp BP Pulse Ox 98.9 F 117 H 20 131/86 96 11/21/17 07:54 11/21/17 07:54 11/21/17 07:54 11/21/17 07:54 11/21/17 07:54 Intake and Output: 11/21/17 11/21/17 06:59 18:59 Intake Total 600 Output Total 450 Balance 150 - Medications Medications: Current Medications Acetaminophen (Tylenol 325mg Tab) 650 mg PO Q4H PRN PRN Reason: Fever >100.4 F Last Admin: 11/20/17 17:37 Dose: 650 mg Amlodipine Besylate (Norvasc) 10 mg PO DAILY [facility] Last Admin: 11/20/17 10:35 Dose: 10 mg Docusate Sodium (Colace) 100 mg PO TID [facility] Last Admin: 11/20/17 17:17 Dose: 100 mg Doxycycline Hyclate (Doryx) 100 mg PO Q12 [facility] PRN Reason: Protocol Stop: 11/24/17 22:01 Last Admin: 11/20/17 21:39 Dose: 100 mg Enoxaparin Sodium (Lovenox) 40 mg SC DAILY [facility] PRN Reason: Protocol Last Admin: 11/20/17 10:34 Dose: 40 mg Famotidine (Pepcid) 20 mg PO 1000 [facility] Last Admin: 11/20/17 10:34 Dose: 20 mg Haloperidol Lactate (Haldol) 4 mg IM Q6 PRN; Protocol PRN Reason: Agitation Meropenem (Merrem Iv 1 Gm Premix) 50 mls @ 100 mls/hr IVPB Q8 [facility] PRN Reason: Protocol Stop: 11/24/17 22:01 Last Admin: 11/21/17 05:01 Dose: 100 mls/hr Vancomycin HCl (Vancomycin 1gm) 1 gm in 250 mls @ 167 mls/hr IVPB Q12H [facility] PRN Reason: Protocol Stop: 11/24/17 20:31 Last Admin: 11/20/17 20:50 Dose: 167 mls/hr Acyclovir 750 mg/ Sodium (Chloride) 100 mls @ 100 mls/hr IV Q8 [facility] PRN Reason: Protocol Stop: 11/24/17 22:01 Last Admin: 11/21/17 05:02 Dose: 100 mls/hr Ibuprofen (Motrin Tab) 400 mg PO Q6H PRN PRN Reason: Pain, moderate (4-7) Last Admin: 11/19/17 04:58 Dose: 400 mg Lisinopril (Zestril) 20 mg PO BID [facility] Last Admin: 11/20/17 17:18 Dose: 20 mg Lorazepam (Ativan) 1 mg PO Q6H PRN; Protocol PRN Reason: Agitation Last Admin: 11/12/17 18:13 Dose: 1 mg Lorazepam (Ativan) 1 mg PO Q12 [facility] PRN Reason: Protocol Last Admin: 11/20/17 10:34 Dose: 1 mg Methimazole (Tapazole) 10 mg PO TID [facility] Last Admin: 11/20/17 17:18 Dose: 10 mg Nystatin (Nystop Topical Powder) 0 gm TOP BID [facility] Last Admin: 11/20/17 18:11 Dose: 1 applic Ondansetron HCl (Zofran Inj) 4 mg IVP Q4H PRN PRN Reason: Nausea/Vomiting Last Admin: 11/18/17 20:08 Dose: 4 mg Oxycodone HCl (Oxycodone Immediate Release Tab) 30 mg PO Q6 [facility] Last Admin: 11/21/17 05:15 Dose: 30 mg Polyethylene Glycol (Miralax) 17 gm PO BID PRN PRN Reason: Constipation Last Admin: 11/20/17 10:34 Dose: 17 gm Propranolol HCl (Inderal) 10 mg PO TID [facility] Last Admin: 11/20/17 17:18 Dose: 10 mg Quetiapine Fumarate (Seroquel) 12.5 mg PO [facility] PRN; Protocol PRN Reason: disorganized thoughts/psychosi - Labs Labs: 11/19/17 07:00 11/20/17 06:30 - Constitutional Appears: Non-toxic, Unkempt, Chronically Ill - Head Exam Head Exam: ATRAUMATIC, NORMOCEPHALIC - Eye Exam Eye Exam: EOMI, Normal appearance. absent: Conjunctival injection, Scleral icterus - ENT Exam ENT Exam: Mucous Membranes Dry - Neck Exam Additional comments: decreased neck flexion secondary to pain - Respiratory Exam Respiratory Exam: NORMAL BREATHING PATTERN. absent: Accessory Muscle Use, Respiratory Distress - Cardiovascular Exam Cardiovascular Exam: +S1, +S2 - GI/Abdominal Exam GI & Abdominal Exam: Soft, Normal Bowel Sounds. absent: Firm, Guarding - Rectal Exam Rectal Exam: Deferred - Extremities Exam Extremities Exam: absent: Pedal Edema - Neurological Exam Neurological Exam: Alert, Awake, Oriented x3 - Psychiatric Exam Psychiatric exam: Flat Affect - Skin Skin Exam: Dry, Intact Assessment and Plan - Assessment and Plan (Free Text) Assessment: 37 yo male PMHx cervical radiculopathy w/ herniated disc, cervical spondylosis w / myelopathy, thoracic spondylosis and depression under hospital management for acute delirium. ID consulted for fever of unknown origin Plan: -concern for viral meningits vs drug fever -continue Abx regimen Vancomycin, Merrem, Doxycycline, and Acyclovir -f/u neuro reccs -MRI brain: unremarkable -dopplers negative 11/15 f/u dopplers ordered 11/21 -f/u blood cultures x 2 ordered 11/21 blood cultures x 2 on 11/15 and 11/07 and blood culture x 1 on 11/13 negative urine culture 11/06, 11/15, and 11/17 negative -suspect delirium 2/2 to chronic opiate use -CT cervical/thoracic/lumbar has no evidence of abscess/infx process -CT Chest/Abd/Pelvis 11/16: no acute intra-abdominal or intra-thoracic findings. Disc degeneration with large osteophytes throughout spine -continue management as per primary Discussed with Dr. Abraham Zhang PGY3 <Gonzalo Rosario - Last Filed: 11/21/17 15:50> Objective - Vital Signs/Intake and Output Vital Signs (last 24 hours): Temp Pulse Resp BP Pulse Ox 98 F 137 H 20 153/104 H 99 11/21/17 14:24 11/21/17 15:27 11/21/17 14:24 11/21/17 15:27 11/21/17 14:24 Intake and Output: 11/21/17 11/21/17 06:59 18:59 Intake Total 600 720 Output Total 450 200 Balance 150 520 - Medications Medications: Current Medications Acetaminophen (Tylenol 325mg Tab) 650 mg PO Q4H PRN PRN Reason: Fever >100.4 F Last Admin: 11/20/17 17:37 Dose: 650 mg Amlodipine Besylate (Norvasc) 10 mg PO DAILY [facility] Last Admin: 11/21/17 11:54 Dose: Not Given Docusate Sodium (Colace) 100 mg PO TID [facility] Last Admin: 11/21/17 15:28 Dose: 100 mg Doxycycline Hyclate (Doryx) 100 mg PO Q12 [facility] PRN Reason: Protocol Stop: 11/24/17 22:01 Last Admin: 11/21/17 11:53 Dose: Not Given Enoxaparin Sodium (Lovenox) 40 mg SC DAILY [facility] PRN Reason: Protocol Last Admin: 11/21/17 11:43 Dose: 40 mg Famotidine (Pepcid) 20 mg PO 1000 [facility] Last Admin: 11/21/17 11:54 Dose: Not Given Haloperidol Lactate (Haldol) 4 mg IM Q6 PRN; Protocol PRN Reason: Agitation Meropenem (Merrem Iv 1 Gm Premix) 50 mls @ 100 mls/hr IVPB Q8 [facility] PRN Reason: Protocol Stop: 11/24/17 22:01 Last Admin: 11/21/17 05:01 Dose: 100 mls/hr Vancomycin HCl (Vancomycin 1gm) 1 gm in 250 mls @ 167 mls/hr IVPB Q12H [facility] PRN Reason: Protocol Stop: 11/24/17 20:31 Last Admin: 11/21/17 11:45 Dose: 167 mls/hr Acyclovir 750 mg/ Sodium (Chloride) 100 mls @ 100 mls/hr IV Q8 [facility] PRN Reason: Protocol Stop: 11/24/17 22:01 Last Admin: 11/21/17 15:40 Dose: 100 mls/hr Ibuprofen (Motrin Tab) 400 mg PO Q6H PRN PRN Reason: Pain, moderate (4-7) Last Admin: 11/19/17 04:58 Dose: 400 mg Lisinopril (Zestril) 20 mg PO BID [facility] Last Admin: 11/21/17 11:55 Dose: Not Given Lorazepam (Ativan) 1 mg PO Q6H PRN; Protocol PRN Reason: Agitation Last Admin: 11/12/17 18:13 Dose: 1 mg Lorazepam (Ativan) 1 mg PO Q12 [facility] PRN Reason: Protocol Last Admin: 11/21/17 11:43 Dose: 1 mg Methimazole (Tapazole) 10 mg PO TID [facility] Last Admin: 11/21/17 15:27 Dose: 10 mg Nystatin (Nystop Topical Powder) 0 gm TOP BID [facility] Last Admin: 11/21/17 11:54 Dose: Not Given Ondansetron HCl (Zofran Inj) 4 mg IVP Q4H PRN PRN Reason: Nausea/Vomiting Last Admin: 11/18/17 20:08 Dose: 4 mg Oxycodone HCl (Oxycodone Immediate Release Tab) 30 mg PO Q6 [facility] Last Admin: 11/21/17 14:39 Dose: 30 mg Polyethylene Glycol (Miralax) 17 gm PO BID PRN PRN Reason: Constipation Last Admin: 11/20/17 10:34 Dose: 17 gm Propranolol HCl (Inderal) 10 mg PO TID [facility] Last Admin: 11/21/17 15:27 Dose: 10 mg Quetiapine Fumarate (Seroquel) 12.5 mg PO [facility] PRN; Protocol PRN Reason: disorganized thoughts/psychosi - Labs Labs: 11/19/17 07:00 11/20/17 06:30 Assessment and Plan - Assessment and Plan (Free Text) Plan: Infectious diseases attending physician addendum Patient discussed with ophthalmic medical assistant. I have reviewed the pertinent clinical information. I agree with the above findings, assessment and plan and in addition: Assessment headache, fever need to rule out meningitis GERD cervical radiculopathy lumbar herniated disc depression Plan MRI brain is negative, will continue Vancomycin, Merrem, Doxycycline and Acyclovir for now and repeat cultures will recommend spinal tap and will await results - Neurology has been re- consulted will get doppler U/S as well of lower extremities will continue to monitor clinically
[2017-11-21] MEDS: Enoxaparin 40 mg Syringe SC SCH (11:43)
[2017-11-21] MEDS: Vancomycin 1gm in NS 250ml 1 GM/250 ML BAG IVPB SCH ×2 (11:45→20:46)
[2017-11-21] MEDS: Nystatin 100,000 Units/gm Topical Pow(15 gm) TOP SCH ×2 (11:54→18:34)
[2017-11-21] MEDS: methIMAzole 5 MG TAB PO SCH ×3 (11:55→18:32)
--- NOTE | 2017-11-21 17:47 | CP.PCM.PN ---
<Alfonzo Mclean - Last Filed: 11/21/17 17:44> Subjective - Date & Time of Evaluation Date of Evaluation: 11/21/17 Time of Evaluation: 07:00 - Subjective Subjective: Alfonzo Mclean PGY1 Medicine Progress Note for Dr. Greer Patient was seen and examined at bedside this morning. Patient is still c/o neck pain. Denies chest pain, sob, n/v/d. Patient is now at his baseline mental status. No fevers overnight. No overnight changes. A full 12 point ROS was conducted and unremarkable except as stated above. Objective - Vital Signs/Intake and Output Vital Signs (last 24 hours): Temp Pulse Resp BP Pulse Ox 98 F 116 H 20 140/101 H 95 11/21/17 14:24 11/21/17 16:35 11/21/17 14:24 11/21/17 16:35 11/21/17 16:35 Intake and Output: 11/21/17 11/21/17 06:59 18:59 Intake Total 600 720 Output Total 450 200 Balance 150 520 - Medications Medications: Current Medications Acetaminophen (Tylenol 325mg Tab) 650 mg PO Q4H PRN PRN Reason: Fever >100.4 F Last Admin: 11/20/17 17:37 Dose: 650 mg Amlodipine Besylate (Norvasc) 10 mg PO DAILY [facility] Last Admin: 11/21/17 11:54 Dose: Not Given Docusate Sodium (Colace) 100 mg PO TID [facility] Last Admin: 11/21/17 15:28 Dose: 100 mg Doxycycline Hyclate (Doryx) 100 mg PO Q12 [facility] PRN Reason: Protocol Stop: 11/24/17 22:01 Last Admin: 11/21/17 11:53 Dose: Not Given Enoxaparin Sodium (Lovenox) 40 mg SC DAILY [facility] PRN Reason: Protocol Last Admin: 11/21/17 11:43 Dose: 40 mg Famotidine (Pepcid) 20 mg PO 1000 [facility] Last Admin: 11/21/17 11:54 Dose: Not Given Haloperidol Lactate (Haldol) 4 mg IM Q6 PRN; Protocol PRN Reason: Agitation Meropenem (Merrem Iv 1 Gm Premix) 50 mls @ 100 mls/hr IVPB Q8 [facility] PRN Reason: Protocol Stop: 11/24/17 22:01 Last Admin: 11/21/17 15:53 Dose: 100 mls/hr Vancomycin HCl (Vancomycin 1gm) 1 gm in 250 mls @ 167 mls/hr IVPB Q12H [facility] PRN Reason: Protocol Stop: 11/24/17 20:31 Last Admin: 11/21/17 11:45 Dose: 167 mls/hr Acyclovir 750 mg/ Sodium (Chloride) 100 mls @ 100 mls/hr IV Q8 [facility] PRN Reason: Protocol Stop: 11/24/17 22:01 Last Admin: 11/21/17 15:40 Dose: 100 mls/hr Ibuprofen (Motrin Tab) 400 mg PO Q6H PRN PRN Reason: Pain, moderate (4-7) Last Admin: 11/19/17 04:58 Dose: 400 mg Lisinopril (Zestril) 20 mg PO BID [facility] Last Admin: 11/21/17 11:55 Dose: Not Given Lorazepam (Ativan) 1 mg PO Q6H PRN; Protocol PRN Reason: Agitation Last Admin: 11/21/17 16:06 Dose: 1 mg Lorazepam (Ativan) 1 mg PO Q12 [facility] PRN Reason: Protocol Last Admin: 11/21/17 11:43 Dose: 1 mg Methimazole (Tapazole) 10 mg PO TID [facility] Last Admin: 11/21/17 15:27 Dose: 10 mg Nystatin (Nystop Topical Powder) 0 gm TOP BID [facility] Last Admin: 11/21/17 11:54 Dose: Not Given Ondansetron HCl (Zofran Inj) 4 mg IVP Q4H PRN PRN Reason: Nausea/Vomiting Last Admin: 11/18/17 20:08 Dose: 4 mg Oxycodone HCl (Oxycodone Immediate Release Tab) 30 mg PO Q6 [facility] Last Admin: 11/21/17 14:39 Dose: 30 mg Polyethylene Glycol (Miralax) 17 gm PO BID PRN PRN Reason: Constipation Last Admin: 11/20/17 10:34 Dose: 17 gm Propranolol HCl (Inderal) 10 mg PO TID [facility] Last Admin: 11/21/17 15:27 Dose: 10 mg Quetiapine Fumarate (Seroquel) 12.5 mg PO [facility] PRN; Protocol PRN Reason: disorganized thoughts/psychosi - Labs Labs: 11/19/17 07:00 11/20/17 06:30 - Constitutional Appears: No Acute Distress - Head Exam Head Exam: ATRAUMATIC, NORMAL INSPECTION, NORMOCEPHALIC - Eye Exam Eye Exam: EOMI, Normal appearance, PERRL Pupil Exam: NORMAL ACCOMODATION, PERRL - ENT Exam ENT Exam: Mucous Membranes Moist, Normal Exam - Neck Exam Neck Exam: Full ROM - Respiratory Exam Respiratory Exam: Clear to Ausculation Bilateral, NORMAL BREATHING PATTERN. absent: Rales, Rhonchi, Wheezes - Cardiovascular Exam Cardiovascular Exam: REGULAR RHYTHM, +S1, +S2. absent: Murmur - GI/Abdominal Exam GI & Abdominal Exam: Soft, Normal Bowel Sounds. absent: Tenderness - Extremities Exam Extremities Exam: Normal Capillary Refill. absent: Joint Swelling, Pedal Edema Additional comments: Atrophy noted at the lower extremities due to increased immobility. - Back Exam Back Exam: NORMAL INSPECTION - Neurological Exam Neurological Exam: Alert, Awake, Oriented x3 Neuro motor strength exam: Left Upper Extremity: 5, Right Upper Extremity: 5, Left Lower Extremity: 4, Right Lower Extremity: 4 - Skin Skin Exam: Dry, Intact, Normal Color, Warm Assessment and Plan - Assessment and Plan (Free Text) Assessment: Patient is a 37 year old male with a PMHx of cervical radiculopathy w/ herniated disc, cervical spondylosis w/ myelopathy, thoracic spondylosis and depression under hospital management for acute delirium. Currently suspect delirium 2/2 to chronic opiate usage. Patient's delirium has improved. Continue to monitor on the floor. Plan: Acute Delerium 2/2 Chronic Opiate Use - improved -Patient refused lumbar puncture. -c/w Percocet q6 prn for pain control -AAOx3 on exam (baseline mental status) -Psych recs appreciated. Patient lacks capacity. -AMS likely 2/2 opiates, benzos which have extended half life. -history of chronic back pain with multiple cervical/thoracic laminectomies with chcf opiate use -moderate fall risk precautions -blood culture negative thus far -Head CT on 11/06: no acute intracranial pathology -currently on AVASYS for monitoring -Neuro signed off case. Recs appreciated. Transaminitis -CT Chest/Abd/Pelvis (11/16): no acute intra-abdominal or intra-thoracic findings. Disc degeneration with large osteophytes throughout spine. -continue to monitor SIRS criteria met -ID recs apprecaited; c/w doxy, gilma, vanco, and acyclovir -Brain MRI: no evidence of herpes encephalitis -No leukocytosis -CT Chest/Abd/Pelvis (11/16): no acute findings -Blood cx negative x2 -UA negative HTN -BP normotensive -c/w zestril, propanolol and amlodipine -will monitor Hyperthyroidism -Endocrine recs appreciated. -T4 17, TSH .09 on repeat labs (prior T4/TSH was 12.7/.22) -c/w propranolol and methimazole Constipation 2/2 Chronic Opiate Use -Large bowel movement yesterday -c/w coalce and mirilax -regular diet DVT ppx: Lovenox GI ppx: pepcid PT: Please get the patient out of bed. Dispo: continue to monitor patient on the floor. Improved mental status. Patient needs physical therapy. Case was discussed and reviewed with Attending Physician, Dr. Greer. <Jomar Greer - Last Filed: 11/22/17 19:04> Objective - Vital Signs/Intake and Output Vital Signs (last 24 hours): Temp Pulse Resp BP Pulse Ox 99.2 F 101 H 20 139/94 H 100 11/22/17 14:00 11/22/17 14:00 11/22/17 14:00 11/22/17 14:00 11/22/17 14:00 Intake and Output: 11/22/17 11/22/17 06:59 18:59 Intake Total 240 720 Output Total 300 Balance 240 420 - Medications Medications: Current Medications Acetaminophen (Tylenol 325mg Tab) 650 mg PO Q4H PRN PRN Reason: Fever >100.4 F Last Admin: 11/20/17 17:37 Dose: 650 mg Amlodipine Besylate (Norvasc) 10 mg PO DAILY [facility] Last Admin: 11/22/17 10:36 Dose: 10 mg Docusate Sodium (Colace) 100 mg PO TID [facility] Last Admin: 11/22/17 13:03 Dose: Not Given Enoxaparin Sodium (Lovenox) 40 mg SC DAILY [facility] PRN Reason: Protocol Last Admin: 11/22/17 10:36 Dose: 40 mg Famotidine (Pepcid) 20 mg PO 1000 [facility] Last Admin: 11/22/17 10:37 Dose: 20 mg Haloperidol Lactate (Haldol) 4 mg IM Q6 PRN; Protocol PRN Reason: Agitation Ibuprofen (Motrin Tab) 400 mg PO Q6H PRN PRN Reason: Pain, moderate (4-7) Last Admin: 11/19/17 04:58 Dose: 400 mg Lisinopril (Zestril) 20 mg PO BID [facility] Last Admin: 11/22/17 10:36 Dose: 20 mg Lorazepam (Ativan) 1 mg PO Q6H PRN; Protocol PRN Reason: Agitation Last Admin: 11/21/17 16:06 Dose: 1 mg Lorazepam (Ativan) 1 mg PO Q12 [facility] PRN Reason: Protocol Last Admin: 11/22/17 10:36 Dose: 1 mg Methimazole (Tapazole) 10 mg PO TID [facility] Last Admin: 11/22/17 18:00 Dose: 10 mg Nystatin (Nystop Topical Powder) 0 gm TOP BID [facility] Last Admin: 11/22/17 18:01 Dose: Not Given Oxycodone HCl (Oxycodone Immediate Release Tab) 30 mg PO Q6 [facility] Last Admin: 11/22/17 18:00 Dose: 30 mg Polyethylene Glycol (Miralax) 17 gm PO BID PRN PRN Reason: Constipation Last Admin: 11/20/17 10:34 Dose: 17 gm Propranolol HCl (Inderal) 20 mg PO TID [facility] Last Admin: 11/22/17 18:00 Dose: 20 mg Quetiapine Fumarate (Seroquel) 12.5 mg PO [facility] PRN; Protocol PRN Reason: disorganized thoughts/psychosi - Labs Labs: 11/22/17 08:00 11/22/17 08:00 Attending/Attestation - Attestation I have personally seen and examined this patient.: Yes I have fully participated in the care of the patient.: Yes I have reviewed all pertinent clinical information, including history, physical exam and plan: Yes Notes (Text): 11/22/17 18:57 attending note; Patient seen and examined with resident. Patient is a 37 year old male with past medical history that is significant for cervical radiculopathy with herniated disc, cervical spondylosis with myelopathy , thoracic spondylosis, and depression that presented to the emergency room with visual hallucinations. 1. Fever; patient has low-grade temperature. patient is more alert and awake. Oriented to place and time. Patient refused spinal tap multiple times. Less likely meningitis. Neurology evaluation appreciated. CT of cervical/thoracic/lumbar spine is Negative for osteomyelitis. Treated with IVvancomycin, meropenem, and acyclovir. Blood cultures negative. Urinalysis negative for infection. Chest xray with no active disease. CT chest/abd/pelvis per radiologist shows no acute intra- abdominal or intrathoracic findings; disc degeneration with large osteophytes projecting posteriorly throughout the spine; the largest osteophyte is seen in the lower cervical spine. MRI brain shows unremarkable pre-and postcontrast enhanced MRI of the brain; no evidence of herpes encephalitis. we will follow-up with infectious disease. 2. Acute delirium. Likely secondary to chronic opioid use and polypharmacy. Continues to improve with restarting of oxycodone. psychiatric evaluation appreciated. Continue Ativan 1 mg by mouth every 12 hours. Continue Haldol and Ativan and as needed. 3. Leukocytosis. resolved. CT chest/abdomen/pelvis is negative. 4. Hyperthyroidism. Endocrinology following, recommendations appreciated. Continue propranolol and methimazole. 5. Essential hypertension. Continue lisinopril, Norvasc, and propanolol. 6. Constipation. Continue Colace and Miralax. Patient is having bowel movements. Case discussed in detail with the patient regarding current diagnosis and treatment plan 11/22/17 19:03 11/22/17 19:04
--- NOTE | 2017-11-21 18:24 | US ---
HISTORY: Leg pain and swelling. Evaluate for DVT PHYSICIAN(S): Vinny Han MD. TECHNIQUE: Duplex sonography and color-flow Doppler with graded compression were used to evaluate the deep venous systems of both lower extremities. The exam is limited by body habitus andedema FINDINGS: The visualized deep venous systems of both lower extremities are sonographically normal and compressible. Normal wave forms and augmentation are seen. There is no sonographic evidence for deep venous thrombosis in the visualized segments of both lower extremities. IMPRESSION: No sonographic evidence for deep venous thrombosis in the visualized segments of both lower extremities.
[2017-11-22] MEDS: oxyCODONE 30 mg Immediate Release Tab PO SCH ×5 (00:11→23:46)
[2017-11-22] MEDS: Meropenem IV 1 gm in NS 50 ML IVPB SCH (05:23)
[2017-11-22 08:23] LABS: HEMOGLOBIN 11.9 g/dL (14.0-18.0); MEAN CELL VOLUME 84.8 fl (80.0-105.0); MEAN CORPUSCULAR HEMOGLOBIN 27.7 pg (25.0-35.0); MEAN CORPUSCULAR HGB CONC 32.7 g/dl (31.0-37.0); MEAN PLATELET VOLUME 9.2 fl (7.0-11.0); RBC 4.29 10^6/uL (3.5-6.1); RED CELL DISTRIBUTION WIDTH 13.5 % (11.5-14.5); WHITE BLOOD COUNT 7.6 10^3/ul (4.5-11.0)
[2017-11-22] MEDS: Vancomycin 1gm in NS 250ml 1 GM/250 ML BAG IVPB SCH (08:27)
[2017-11-22 08:38] LABS: ALBUMIN 3.8 g/dL (3.0-4.8); ALT/SGPT 127 U/L (7-56); AST/SGOT 36 U/L (17-59); BLOOD UREA NITROGEN 8 mg/dL (7-21); CALCIUM 9.5 mg/dL (8.4-10.5); GFR NON-AFRICAN AMERICAN > 60
[2017-11-22] MEDS: Enoxaparin 40 mg Syringe SC SCH (10:36)
[2017-11-22] MEDS: methIMAzole 5 MG TAB PO SCH ×3 (10:37→18:00)
[2017-11-22] MEDS: Nystatin 100,000 Units/gm Topical Pow(15 gm) TOP SCH ×2 (12:01→18:01)
--- NOTE | 2017-11-22 13:28 | CP.PCM.PN ---
Subjective - Date & Time of Evaluation Date of Evaluation: 11/22/17 Time of Evaluation: 13:25 - Subjective Subjective: PGY 1 Progress Note for: Dr. Mccauley Pt was seen and examined this morning at bedside. Pt denies any acute overnight events. He also denies any palpitations, chest pain, agitation, restlessness, weight loss, diarrhea, or heat intolerance at this time. He denies any other acute complaints. Objective - Vital Signs/Intake and Output Vital Signs (last 24 hours): Temp Pulse Resp BP Pulse Ox 98 F 100 H 20 120/60 96 11/22/17 06:00 11/22/17 06:00 11/22/17 06:00 11/22/17 10:36 11/22/17 06:00 Intake and Output: 11/22/17 11/22/17 06:59 18:59 Intake Total 240 Balance 240 - Medications Medications: Current Medications Acetaminophen (Tylenol 325mg Tab) 650 mg PO Q4H PRN PRN Reason: Fever >100.4 F Last Admin: 11/20/17 17:37 Dose: 650 mg Amlodipine Besylate (Norvasc) 10 mg PO DAILY [facility] Last Admin: 11/22/17 10:36 Dose: 10 mg Docusate Sodium (Colace) 100 mg PO TID [facility] Last Admin: 11/22/17 13:03 Dose: Not Given Enoxaparin Sodium (Lovenox) 40 mg SC DAILY [facility] PRN Reason: Protocol Last Admin: 11/22/17 10:36 Dose: 40 mg Famotidine (Pepcid) 20 mg PO 1000 [facility] Last Admin: 11/22/17 10:37 Dose: 20 mg Haloperidol Lactate (Haldol) 4 mg IM Q6 PRN; Protocol PRN Reason: Agitation Ibuprofen (Motrin Tab) 400 mg PO Q6H PRN PRN Reason: Pain, moderate (4-7) Last Admin: 11/19/17 04:58 Dose: 400 mg Lisinopril (Zestril) 20 mg PO BID [facility] Last Admin: 11/22/17 10:36 Dose: 20 mg Lorazepam (Ativan) 1 mg PO Q6H PRN; Protocol PRN Reason: Agitation Last Admin: 11/21/17 16:06 Dose: 1 mg Lorazepam (Ativan) 1 mg PO Q12 [facility] PRN Reason: Protocol Last Admin: 11/22/17 10:36 Dose: 1 mg Methimazole (Tapazole) 10 mg PO TID [facility] Last Admin: 11/22/17 13:04 Dose: 10 mg Nystatin (Nystop Topical Powder) 0 gm TOP BID [facility] Last Admin: 11/22/17 12:01 Dose: Not Given Oxycodone HCl (Oxycodone Immediate Release Tab) 30 mg PO Q6 [facility] Last Admin: 11/22/17 13:04 Dose: 30 mg Polyethylene Glycol (Miralax) 17 gm PO BID PRN PRN Reason: Constipation Last Admin: 11/20/17 10:34 Dose: 17 gm Propranolol HCl (Inderal) 20 mg PO TID [facility] Last Admin: 11/22/17 13:04 Dose: 20 mg Quetiapine Fumarate (Seroquel) 12.5 mg PO [facility] PRN; Protocol PRN Reason: disorganized thoughts/psychosi - Labs Labs: 11/22/17 08:00 11/22/17 08:00 - Constitutional Appears: Well, Non-toxic, No Acute Distress - Head Exam Head Exam: ATRAUMATIC, NORMAL INSPECTION, NORMOCEPHALIC - Eye Exam Eye Exam: EOMI, Normal appearance Pupil Exam: NORMAL ACCOMODATION - ENT Exam ENT Exam: Mucous Membranes Moist - Respiratory Exam Respiratory Exam: Clear to Ausculation Bilateral, NORMAL BREATHING PATTERN. absent: Accessory Muscle Use, Rhonchi, Wheezes, Respiratory Distress - Cardiovascular Exam Cardiovascular Exam: Tachycardia (HR I noted to be at 102. ), REGULAR RHYTHM, + S1, +S2. absent: Gallop, Rubs - GI/Abdominal Exam GI & Abdominal Exam: Soft, Normal Bowel Sounds. absent: Guarding, Rigid, Tenderness - Extremities Exam Extremities Exam: Normal Inspection. absent: Pedal Edema - Neurological Exam Neurological Exam: Alert, Awake, Oriented x3 - Psychiatric Exam Psychiatric exam: Normal Affect, Normal Mood - Skin Skin Exam: Dry, Intact, Normal Color, Warm Assessment and Plan - Assessment and Plan (Free Text) Assessment: Pt is a 37 yo M with pmhx of Cervical radiculopathy w/herniated disk, cervical spondylosis w/ myelopahty and depression who we are seeing for newly diagnosed hyperthyroidism. Pt is currently on methimazole 10 TID, and propanolol 10 TID. - Recent T4 and TSH labs have been showing improvement and appropriate response to the medication regiment that the pt is currently on - Can be D/Christiano on methimazole 10mg PO QD - Will need to be followed up as a outpt to continue to titrate and monitor hyperthyroidism - Can repeat T4 and TSH in 1 month with outpt doctor to help monitor treatment efficacy - Will continue to follow. Discussed with Dr. Garrick Logan PGY 1
--- NOTE | 2017-11-22 15:13 | CP.PCM.PN ---
<Alfonzo Mclean - Last Filed: 11/22/17 15:20> Subjective - Date & Time of Evaluation Date of Evaluation: 11/22/17 Time of Evaluation: 07:00 - Subjective Subjective: Alfonzo Mclean, PGY1 Medicine Progress Note for Dr. Greer Patient was seen and examined at bedside this morning. No fevers overnight. No overnight changes. Vital signs stable. Patient is AAOx3. Still complains of neck pain but it has improved. Denies cp, sob, abdominal pain, n/v/d. Patient claims to have been seen by Physical Therapy but there was no record on the EMR. PT will be re-consulted. Patient encouraged to get out of bed; he has worsening muscle atrophy. A full 12 point ROS was conducted and unremarkable except as stated above. Objective - Vital Signs/Intake and Output Vital Signs (last 24 hours): Temp Pulse Resp BP Pulse Ox 99.2 F 100 H 20 139/94 H 100 11/22/17 14:00 11/22/17 06:00 11/22/17 14:00 11/22/17 14:00 11/22/17 14:00 Intake and Output: 11/22/17 11/22/17 06:59 18:59 Intake Total 240 720 Output Total 300 Balance 240 420 - Medications Medications: Current Medications Acetaminophen (Tylenol 325mg Tab) 650 mg PO Q4H PRN PRN Reason: Fever >100.4 F Last Admin: 11/20/17 17:37 Dose: 650 mg Amlodipine Besylate (Norvasc) 10 mg PO DAILY [facility] Last Admin: 11/22/17 10:36 Dose: 10 mg Docusate Sodium (Colace) 100 mg PO TID [facility] Last Admin: 11/22/17 13:03 Dose: Not Given Enoxaparin Sodium (Lovenox) 40 mg SC DAILY [facility] PRN Reason: Protocol Last Admin: 11/22/17 10:36 Dose: 40 mg Famotidine (Pepcid) 20 mg PO 1000 [facility] Last Admin: 11/22/17 10:37 Dose: 20 mg Haloperidol Lactate (Haldol) 4 mg IM Q6 PRN; Protocol PRN Reason: Agitation Ibuprofen (Motrin Tab) 400 mg PO Q6H PRN PRN Reason: Pain, moderate (4-7) Last Admin: 11/19/17 04:58 Dose: 400 mg Lisinopril (Zestril) 20 mg PO BID [facility] Last Admin: 11/22/17 10:36 Dose: 20 mg Lorazepam (Ativan) 1 mg PO Q6H PRN; Protocol PRN Reason: Agitation Last Admin: 11/21/17 16:06 Dose: 1 mg Lorazepam (Ativan) 1 mg PO Q12 [facility] PRN Reason: Protocol Last Admin: 11/22/17 10:36 Dose: 1 mg Methimazole (Tapazole) 10 mg PO TID [facility] Last Admin: 11/22/17 13:04 Dose: 10 mg Nystatin (Nystop Topical Powder) 0 gm TOP BID [facility] Last Admin: 11/22/17 12:01 Dose: Not Given Oxycodone HCl (Oxycodone Immediate Release Tab) 30 mg PO Q6 [facility] Last Admin: 11/22/17 13:04 Dose: 30 mg Polyethylene Glycol (Miralax) 17 gm PO BID PRN PRN Reason: Constipation Last Admin: 11/20/17 10:34 Dose: 17 gm Propranolol HCl (Inderal) 20 mg PO TID [facility] Last Admin: 11/22/17 13:04 Dose: 20 mg Quetiapine Fumarate (Seroquel) 12.5 mg PO [facility] PRN; Protocol PRN Reason: disorganized thoughts/psychosi - Labs Labs: 11/22/17 08:00 11/22/17 08:00 - Constitutional Appears: No Acute Distress - Head Exam Head Exam: ATRAUMATIC, NORMAL INSPECTION, NORMOCEPHALIC - Eye Exam Eye Exam: EOMI, Normal appearance, PERRL Pupil Exam: NORMAL ACCOMODATION, PERRL - ENT Exam ENT Exam: Mucous Membranes Moist, Normal Exam - Neck Exam Neck Exam: Full ROM, Normal Inspection. absent: Lymphadenopathy - Respiratory Exam Respiratory Exam: Clear to Ausculation Bilateral, NORMAL BREATHING PATTERN. absent: Rales, Rhonchi, Wheezes - Cardiovascular Exam Cardiovascular Exam: REGULAR RHYTHM, +S1, +S2. absent: Murmur - GI/Abdominal Exam GI & Abdominal Exam: Soft, Normal Bowel Sounds. absent: Tenderness - Extremities Exam Extremities Exam: Full ROM, Normal Capillary Refill, Normal Inspection. absent : Joint Swelling, Pedal Edema - Back Exam Back Exam: NORMAL INSPECTION - Neurological Exam Neurological Exam: Alert, Awake, Oriented x3 Neuro motor strength exam: Left Upper Extremity: 5, Right Upper Extremity: 5, Left Lower Extremity: 4, Right Lower Extremity: 4 - Skin Skin Exam: Dry, Intact, Normal Color, Warm Assessment and Plan - Assessment and Plan (Free Text) Assessment: Patient is a 37 year old male with a PMHx of cervical radiculopathy w/ herniated disc, cervical spondylosis w/ myelopathy, thoracic spondylosis and depression under hospital management for acute delirium. Currently suspect delirium 2/2 to chronic opiate usage. Patient's delirium has improved and he is now at baseline mental status. Continue to monitor on the floor. Plan: Acute Delerium 2/2 Chronic Opiate Use - improved -Patient refused lumbar puncture. As per neuro, patient may not need LP since he has low suspicion for meningitis. -c/w Percocet q6 prn for pain control -AAOx3 on exam (baseline mental status) -Psych recs appreciated. Patient lacks capacity. -AMS likely 2/2 opiates, benzos which have extended half life. -history of chronic back pain with multiple cervical/thoracic laminectomies with intermodal customer service opiate use -moderate fall risk precautions -blood culture negative thus far -Head CT on 11/06: no acute intracranial pathology -currently on [facility]ASYS for monitoring -Neuro signed off case. Recs appreciated. Transaminitis -AST/ALT is 36/127 today -CT Chest/Abd/Pelvis (11/16): no acute intra-abdominal or intra-thoracic findings. Disc degeneration with large osteophytes throughout spine. -continue to monitor SIRS criteria met - no source of infection -As per ID, recommended removal of peripheral line as it may be a site of infection. Patient may be switched to PO meds. -ID recs appreciated. No antibiotics at this time. -Brain MRI: no evidence of herpes encephalitis -No leukocytosis -CT Chest/Abd/Pelvis (11/16): no acute findings -Blood Cx negative x2 -UA negative -UCx negative HTN -BP normotensive -c/w zestril, propanolol and amlodipine -will monitor Hyperthyroidism -Endocrine recs appreciated. -T4 17, TSH .09 on repeat labs (prior T4/TSH was 12.7/.22) -c/w propranolol and methimazole Constipation 2/2 Chronic Opiate Use -Large bowel movement yesterday -c/w coalce and mirilax -regular diet DVT ppx: Lovenox GI ppx: pepcid PT: Reconsulted. Please get the patient out of bed. Dispo: continue to monitor patient on the floor. Pending physical therapy. Case was discussed and reviewed with Attending Physician, Dr. Greer. <Jomar Greer - Last Filed: 11/24/17 16:59> Objective - Vital Signs/Intake and Output Vital Signs (last 24 hours): Temp Pulse Resp BP Pulse Ox 100.8 F H 113 H 20 117/79 97 11/24/17 14:00 11/24/17 15:09 11/24/17 14:00 11/24/17 15:09 11/24/17 14:00 Intake and Output: 11/24/17 11/24/17 06:59 18:59 Intake Total 480 Output Total 200 Balance 280 - Medications Medications: Current Medications Acetaminophen (Tylenol 325mg Tab) 650 mg PO Q4H PRN PRN Reason: Fever >100.4 F Last Admin: 11/23/17 18:10 Dose: 650 mg Amlodipine Besylate (Norvasc) 10 mg PO DAILY [facility] Last Admin: 11/24/17 11:23 Dose: 10 mg Docusate Sodium (Colace) 100 mg PO TID [facility] Last Admin: 11/24/17 15:10 Dose: 100 mg Enoxaparin Sodium (Lovenox) 40 mg SC DAILY [facility] PRN Reason: Protocol Last Admin: 11/24/17 11:26 Dose: 40 mg Famotidine (Pepcid) 20 mg PO 1000 [facility] Last Admin: 11/24/17 11:25 Dose: 20 mg Haloperidol Lactate (Haldol) 4 mg IM Q6 PRN; Protocol PRN Reason: Agitation Ibuprofen (Motrin Tab) 400 mg PO Q6H PRN PRN Reason: Pain, moderate (4-7) Last Admin: 11/19/17 04:58 Dose: 400 mg Lisinopril (Zestril) 20 mg PO BID [facility] Last Admin: 11/24/17 11:25 Dose: 20 mg Lorazepam (Ativan) 1 mg PO Q6H PRN; Protocol PRN Reason: Agitation Last Admin: 11/21/17 16:06 Dose: 1 mg Lorazepam (Ativan) 1 mg PO Q12 [facility] PRN Reason: Protocol Last Admin: 11/24/17 11:25 Dose: 1 mg Methimazole (Tapazole) 10 mg PO TID [facility] Last Admin: 11/24/17 15:12 Dose: 10 mg Nystatin (Nystop Topical Powder) 0 gm TOP BID [facility] Last Admin: 11/24/17 11:29 Dose: 1 applic Oxycodone HCl (Oxycodone Immediate Release Tab) 30 mg PO Q6 [facility] Last Admin: 11/24/17 12:39 Dose: 30 mg Polyethylene Glycol (Miralax) 17 gm PO BID PRN PRN Reason: Constipation Last Admin: 11/24/17 11:22 Dose: 17 gm Propranolol HCl (Inderal) 20 mg PO TID [facility] Last Admin: 11/24/17 15:09 Dose: 20 mg Quetiapine Fumarate (Seroquel) 12.5 mg PO [facility] PRN; Protocol PRN Reason: disorganized thoughts/psychosi - Labs Labs: 11/24/17 06:20 11/24/17 06:20 Attending/Attestation - Attestation I have personally seen and examined this patient.: Yes I have fully participated in the care of the patient.: Yes I have reviewed all pertinent clinical information, including history, physical exam and plan: Yes Notes (Text): 11/24/17 16:56 attending note; Patient seen and examined with resident. Patient is a 37 year old male with past medical history that is significant for cervical radiculopathy with herniated disc, cervical spondylosis with myelopathy , thoracic spondylosis, and depression that presented to the emergency room with visual hallucinations. 1. Fever; resolved. secondary to right hand phlebitis. Improved significantly. patient is more alert and awake. Oriented to place and time. Right upper extremity ultrasound ordered. Patient refused spinal tap multiple times. Less likely meningitis. Neurology evaluation appreciated. CT of cervical/thoracic/lumbar spine is Negative for osteomyelitis. Treated with IVvancomycin, meropenem, and acyclovir. Currently off antibiotics. Blood, urine culture is negative. Chest xray with no active disease. CT chest/ abd/pelvisshows no acute intra-abdominal or intrathoracic findings; disc degeneration with large osteophytes projecting posteriorly throughout the spine ; the largest osteophyte is seen in the lower cervical spine. MRI brain shows unremarkable pre-and postcontrast enhanced MRI of the brain; no evidence of herpes encephalitis. we will follow-up with infectious disease. 2. Acute delirium. Likely secondary to chronic opioid use and polypharmacy. Continues to improve with restarting of oxycodone. psychiatric evaluation appreciated. Continue Ativan 1 mg every 12 hours. Continue Haldol and Ativan and as needed. 3. Leukocytosis. resolved. CT chest/abdomen/pelvis is negative. 4. Hyperthyroidism. Endocrinology following, recommendations appreciated. Continue propranolol and methimazole. 5. Essential hypertension. Continue lisinopril, Norvasc, and propanolol. Physical therapy evaluation requested. Patient is currently agreeing to do therapy. Case discussed in detail with the patient regarding current diagnosis and treatment plan 11/24/17 16:58
--- NOTE | 2017-11-22 15:48 | PN ---
DATE: 11/22/2017 ENDO FOLLOWUP NOTE LOCATION: In room 563. SUBJECTIVE: This is a 37-year-old male with recent overt hyperthyroidism, currently tolerating the higher dose of medical therapy as given. His dizziness and generalized weakness have subsided at this time. The repeat chemistry showed a BUN of 8, sodium 138, potassium 3.9, chloride 97, CO2 of 31, glucose 131 and creatinine 0.4. His repeat thyroid study showed a T4 or thyroxine level of 13.5 mcg/dL with a TSH of 0.17. So at this time, we will continue the Tapazole given at a higher dose of 10 mg p.o. t.i.d. after meals as ordered. I would continue the same dose regimen when inpatient at this time. However, upon discharge, I would recommend a lower dosing of Tapazole given as 10 mg once daily as ordered. We will obtain serial chemistries and supplement accordingly as needed. We will follow. Ashley Mccauley MD
--- NOTE | 2017-11-22 18:27 | PN ---
DATE: 11/22/2017 SUBJECTIVE: The patient is in bed, in no acute distress, nontoxic. PHYSICAL EXAMINATION: VITAL SIGNS: Temperature is 99, blood pressure is 130/90, respiratory rate of 16. HEENT: Examination of HEENT is unremarkable. NECK: Supple. LUNGS: Have decreased breath sounds. HEART: Normal S1, S2. ABDOMEN: Soft, nontender. LABORATORY DATA: Laboratory examination reveals a white count of 7.6, hemoglobin of 11. The chemistries are noted. Urinalysis is noted. Microbiology reveals the blood cultures are negative. Urine cultures are negative. ASSESSMENT AND PLAN: A 37-year-old male who is seen earlier this morning. Actually, today, the patient's mental status, he knows who he is, he knows his name, he knows where he is. He denies any headaches at this point. He knows what year it is. The patient who has intermittent fevers. On his right hand where the IV site was, there is edema and few blisters. IV site was removed. I believe that maybe the cause of his fevers. I recommended removing all his IVs. We will discontinue the antibiotics and follow. His white count is normalized. We will discontinue the antibiotics and follow. Follow the fever curve. I recommended discontinuation of the IV to minimize development of the IV site infection. I think the last fever was from his right hand. Arias Aviles MD
--- NOTE | 2017-11-23 00:03 | CP.PCM.PN ---
<Alen Arroyo - Last Filed: 11/22/17 23:56> Subjective - Date & Time of Evaluation Date of Evaluation: 11/22/17 Time of Evaluation: 14:00 - Subjective Subjective: PGY-2 neurology progress note for Dr Pretty No acute events noted overnight. Patient stated he has pain in his neck and back. Patient is now at his baseline mental status. He is bedbound at home and has a paralyzed LLE but could not explain for how long or why. Other ROS negative unless otherwise stated. Objective - Vital Signs/Intake and Output Vital Signs (last 24 hours): Temp Pulse Resp BP Pulse Ox 103 F H 104 H 20 151/80 H 96 11/22/17 22:09 11/22/17 22:09 11/22/17 22:09 11/22/17 22:09 11/22/17 22:09 Intake and Output: 11/22/17 11/23/17 18:59 06:59 Intake Total 720 240 Output Total 300 Balance 420 240 - Medications Medications: Current Medications Acetaminophen (Tylenol 325mg Tab) 650 mg PO Q4H PRN PRN Reason: Fever >100.4 F Last Admin: 11/22/17 21:52 Dose: 650 mg Amlodipine Besylate (Norvasc) 10 mg PO DAILY [facility] Last Admin: 11/22/17 10:36 Dose: 10 mg Docusate Sodium (Colace) 100 mg PO TID [facility] Last Admin: 11/22/17 13:03 Dose: Not Given Enoxaparin Sodium (Lovenox) 40 mg SC DAILY [facility] PRN Reason: Protocol Last Admin: 11/22/17 10:36 Dose: 40 mg Famotidine (Pepcid) 20 mg PO 1000 [facility] Last Admin: 11/22/17 10:37 Dose: 20 mg Haloperidol Lactate (Haldol) 4 mg IM Q6 PRN; Protocol PRN Reason: Agitation Ibuprofen (Motrin Tab) 400 mg PO Q6H PRN PRN Reason: Pain, moderate (4-7) Last Admin: 11/19/17 04:58 Dose: 400 mg Lisinopril (Zestril) 20 mg PO BID [facility] Last Admin: 11/22/17 10:36 Dose: 20 mg Lorazepam (Ativan) 1 mg PO Q6H PRN; Protocol PRN Reason: Agitation Last Admin: 11/21/17 16:06 Dose: 1 mg Lorazepam (Ativan) 1 mg PO Q12 [facility] PRN Reason: Protocol Last Admin: 11/22/17 21:52 Dose: 1 mg Methimazole (Tapazole) 10 mg PO TID [facility] Last Admin: 11/22/17 18:00 Dose: 10 mg Nystatin (Nystop Topical Powder) 0 gm TOP BID [facility] Last Admin: 11/22/17 18:01 Dose: Not Given Oxycodone HCl (Oxycodone Immediate Release Tab) 30 mg PO Q6 [facility] Last Admin: 11/22/17 23:46 Dose: 30 mg Polyethylene Glycol (Miralax) 17 gm PO BID PRN PRN Reason: Constipation Last Admin: 11/20/17 10:34 Dose: 17 gm Propranolol HCl (Inderal) 20 mg PO TID [facility] Last Admin: 11/22/17 18:00 Dose: 20 mg Quetiapine Fumarate (Seroquel) 12.5 mg PO [facility] PRN; Protocol PRN Reason: disorganized thoughts/psychosi - Labs Labs: 11/22/17 08:00 11/22/17 08:00 Assessment and Plan - Assessment and Plan (Free Text) Plan: Patient is a 37 yo male with a history of depression and multiple back surgeries who was brought in by his mother for agitation and reported visual hallucinations. Patient is reportedly taking oxycodone, Vicodin, methadone, Fioricet, and Valium, which were all positive in [facility]. Also recently discontinued Adderall and Wellbutrin. CT head negative for acute pathology. Suspect symptoms due to polypharmacy and/or psychiatric disorder. Acute Delerium 2/2 Chronic Opiate Use - improved - 2/2 polypharmacy and/or psychiatric disorder (schizophrenia spectrum, drug- induced psychosis, etc.), patient improving with discontinuation of multiple drugs - Will consider ketamine (which can reset NMDA receptors for pain) and IV methadone - both can help patient with opioid dependency - Recommend discontinuation of unnecessary drugs, especially psychotropic agents (ie. stimulants, benzos, opiates) - Fever likely 2/2 to drug fever - Currently on ativan 1mg po q12h and 1mg po q6h prn - Currently on haldol 4mg im q6h prn for agitation - Continue propranolol 20mg po tid - Recommend psychiatry and pain management consults - Patient refuses lumbar puncture and LP in this patient might not be possible due to spinal fusion Case discussed with attending, Dr. Pretty. <Emir Pretty - Last Filed: 11/24/17 17:31> Objective - Vital Signs/Intake and Output Vital Signs (last 24 hours): Temp Pulse Resp BP Pulse Ox 100.8 F H 113 H 20 117/79 97 11/24/17 14:00 11/24/17 15:09 11/24/17 14:00 11/24/17 15:09 11/24/17 14:00 Intake and Output: 11/24/17 11/24/17 06:59 18:59 Intake Total 480 Output Total 200 Balance 280 - Medications Medications: Current Medications Acetaminophen (Tylenol 325mg Tab) 650 mg PO Q4H PRN PRN Reason: Fever >100.4 F Last Admin: 11/23/17 18:10 Dose: 650 mg Amlodipine Besylate (Norvasc) 10 mg PO DAILY [facility] Last Admin: 11/24/17 11:23 Dose: 10 mg Docusate Sodium (Colace) 100 mg PO TID [facility] Last Admin: 11/24/17 15:10 Dose: 100 mg Enoxaparin Sodium (Lovenox) 40 mg SC DAILY [facility] PRN Reason: Protocol Last Admin: 11/24/17 11:26 Dose: 40 mg Famotidine (Pepcid) 20 mg PO 1000 [facility] Last Admin: 11/24/17 11:25 Dose: 20 mg Haloperidol Lactate (Haldol) 4 mg IM Q6 PRN; Protocol PRN Reason: Agitation Ibuprofen (Motrin Tab) 400 mg PO Q6H PRN PRN Reason: Pain, moderate (4-7) Last Admin: 11/19/17 04:58 Dose: 400 mg Lisinopril (Zestril) 20 mg PO BID [facility] Last Admin: 11/24/17 11:25 Dose: 20 mg Lorazepam (Ativan) 1 mg PO Q6H PRN; Protocol PRN Reason: Agitation Last Admin: 11/21/17 16:06 Dose: 1 mg Lorazepam (Ativan) 1 mg PO Q12 [facility] PRN Reason: Protocol Last Admin: 11/24/17 11:25 Dose: 1 mg Methimazole (Tapazole) 10 mg PO TID [facility] Last Admin: 11/24/17 15:12 Dose: 10 mg Nystatin (Nystop Topical Powder) 0 gm TOP BID [facility] Last Admin: 11/24/17 11:29 Dose: 1 applic Oxycodone HCl (Oxycodone Immediate Release Tab) 30 mg PO Q6 [facility] Last Admin: 11/24/17 12:39 Dose: 30 mg Polyethylene Glycol (Miralax) 17 gm PO BID PRN PRN Reason: Constipation Last Admin: 11/24/17 11:22 Dose: 17 gm Propranolol HCl (Inderal) 20 mg PO TID [facility] Last Admin: 11/24/17 15:09 Dose: 20 mg Quetiapine Fumarate (Seroquel) 12.5 mg PO [facility] PRN; Protocol PRN Reason: disorganized thoughts/psychosi - Labs Labs: 11/24/17 06:20 11/24/17 06:20 Assessment and Plan (1) Toxic metabolic encephalopathy Status: Acute Attending/Attestation - Attestation I have personally seen and examined this patient.: Yes I have fully participated in the care of the patient.: Yes I have reviewed all pertinent clinical information, including history, physical exam and plan: Yes Notes (Text): 11/24/17 17:31 I agree with the assessment and plan. The patient continues to exhibit psychiatric and behavioral changes. He is unlikely to have encephalitis.
[2017-11-23] MEDS: oxyCODONE 30 mg Immediate Release Tab PO SCH ×2 (05:28→15:53)
[2017-11-23 07:07] LABS: HEMOGLOBIN 11.3 g/dL (14.0-18.0); MEAN CELL VOLUME 85.7 fl (80.0-105.0); MEAN CORPUSCULAR HEMOGLOBIN 27.9 pg (25.0-35.0); MEAN CORPUSCULAR HGB CONC 32.6 g/dl (31.0-37.0); RBC 4.05 10^6/uL (3.5-6.1); RED CELL DISTRIBUTION WIDTH 13.6 % (11.5-14.5); WHITE BLOOD COUNT 9.5 10^3/ul (4.5-11.0)
[2017-11-23 07:32] LABS: ALBUMIN 3.7 g/dL (3.0-4.8); ALT/SGPT 117 U/L (7-56); AST/SGOT 39 U/L (17-59); BLOOD UREA NITROGEN 13 mg/dL (7-21); CALCIUM 9.5 mg/dL (8.4-10.5); GFR NON-AFRICAN AMERICAN > 60
--- NOTE | 2017-11-23 08:10 | CP.PCM.PN ---
<Evie Zhang - Last Filed: 11/23/17 11:12> Subjective - Date & Time of Evaluation Date of Evaluation: 11/23/17 Time of Evaluation: 08:20 - Subjective Subjective: [id number] ID Progress note for Dr. Rosario Patient seen and examined at bedside. Nursing reported patient's mentation had improved and he had no acute events overnight. Patient was ao x 3 but not cooperative with interview. He Objective - Vital Signs/Intake and Output Vital Signs (last 24 hours): Temp Pulse Resp BP Pulse Ox 98.6 F 100 H 20 149/90 97 11/23/17 06:00 11/23/17 06:00 11/23/17 06:00 11/23/17 06:00 11/23/17 06:00 Intake and Output: 11/23/17 11/23/17 06:59 18:59 Intake Total 240 Balance 240 - Medications Medications: Current Medications Acetaminophen (Tylenol 325mg Tab) 650 mg PO Q4H PRN PRN Reason: Fever >100.4 F Last Admin: 11/22/17 21:52 Dose: 650 mg Amlodipine Besylate (Norvasc) 10 mg PO DAILY [facility] Last Admin: 11/22/17 10:36 Dose: 10 mg Docusate Sodium (Colace) 100 mg PO TID [facility] Last Admin: 11/22/17 13:03 Dose: Not Given Enoxaparin Sodium (Lovenox) 40 mg SC DAILY [facility] PRN Reason: Protocol Last Admin: 11/22/17 10:36 Dose: 40 mg Famotidine (Pepcid) 20 mg PO 1000 [facility] Last Admin: 11/22/17 10:37 Dose: 20 mg Haloperidol Lactate (Haldol) 4 mg IM Q6 PRN; Protocol PRN Reason: Agitation Ibuprofen (Motrin Tab) 400 mg PO Q6H PRN PRN Reason: Pain, moderate (4-7) Last Admin: 11/19/17 04:58 Dose: 400 mg Lisinopril (Zestril) 20 mg PO BID [facility] Last Admin: 11/22/17 10:36 Dose: 20 mg Lorazepam (Ativan) 1 mg PO Q6H PRN; Protocol PRN Reason: Agitation Last Admin: 11/21/17 16:06 Dose: 1 mg Lorazepam (Ativan) 1 mg PO Q12 [facility] PRN Reason: Protocol Last Admin: 11/22/17 21:52 Dose: 1 mg Methimazole (Tapazole) 10 mg PO TID [facility] Last Admin: 11/22/17 18:00 Dose: 10 mg Nystatin (Nystop Topical Powder) 0 gm TOP BID [facility] Last Admin: 11/22/17 18:01 Dose: Not Given Oxycodone HCl (Oxycodone Immediate Release Tab) 30 mg PO Q6 [facility] Last Admin: 11/23/17 05:28 Dose: 30 mg Polyethylene Glycol (Miralax) 17 gm PO BID PRN PRN Reason: Constipation Last Admin: 11/20/17 10:34 Dose: 17 gm Propranolol HCl (Inderal) 20 mg PO TID [facility] Last Admin: 11/22/17 18:00 Dose: 20 mg Quetiapine Fumarate (Seroquel) 12.5 mg PO [facility] PRN; Protocol PRN Reason: disorganized thoughts/psychosi - Labs Labs: 11/23/17 06:30 11/23/17 06:30 Assessment and Plan - Assessment and Plan (Free Text) Assessment: 37 yo male PMHx cervical radiculopathy w/ herniated disc, cervical spondylosis w / myelopathy, thoracic spondylosis and depression under hospital management for acute delirium. ID consulted for fever of unknown origin Plan: -MRI brain: unremarkable -dopplers negative 11/15 f/u dopplers ordered 11/21 -f/u blood cultures x 2 ordered 11/21 blood cultures x 2 on 11/15 and 11/07 and blood culture x 1 on 11/13 negative urine culture 11/06, 11/15, and 11/17 negative -suspect delirium 2/2 to chronic opiate use -CT cervical/thoracic/lumbar has no evidence of abscess/infx process -CT Chest/Abd/Pelvis 11/16: no acute intra-abdominal or intra-thoracic findings. Disc degeneration with large osteophytes throughout spine -continue management as per primary Discussed with Dr. Abraham Zhang PGY3 <Gonzalo Rosario - Last Filed: 11/23/17 14:36> Objective - Vital Signs/Intake and Output Vital Signs (last 24 hours): Temp Pulse Resp BP Pulse Ox 98.6 F 100 H 20 149/90 97 11/23/17 06:00 11/23/17 06:00 11/23/17 06:00 11/23/17 09:06 11/23/17 06:00 Intake and Output: 11/23/17 11/23/17 06:59 18:59 Intake Total 240 Balance 240 - Medications Medications: Current Medications Acetaminophen (Tylenol 325mg Tab) 650 mg PO Q4H PRN PRN Reason: Fever >100.4 F Last Admin: 11/22/17 21:52 Dose: 650 mg Amlodipine Besylate (Norvasc) 10 mg PO DAILY [facility] Last Admin: 11/23/17 09:06 Dose: 10 mg Docusate Sodium (Colace) 100 mg PO TID [facility] Last Admin: 11/23/17 09:05 Dose: 100 mg Enoxaparin Sodium (Lovenox) 40 mg SC DAILY [facility] PRN Reason: Protocol Last Admin: 11/23/17 09:17 Dose: Not Given Famotidine (Pepcid) 20 mg PO 1000 [facility] Last Admin: 11/23/17 09:07 Dose: 20 mg Haloperidol Lactate (Haldol) 4 mg IM Q6 PRN; Protocol PRN Reason: Agitation Ibuprofen (Motrin Tab) 400 mg PO Q6H PRN PRN Reason: Pain, moderate (4-7) Last Admin: 11/19/17 04:58 Dose: 400 mg Lisinopril (Zestril) 20 mg PO BID [facility] Last Admin: 11/23/17 09:07 Dose: 20 mg Lorazepam (Ativan) 1 mg PO Q6H PRN; Protocol PRN Reason: Agitation Last Admin: 11/21/17 16:06 Dose: 1 mg Lorazepam (Ativan) 1 mg PO Q12 [facility] PRN Reason: Protocol Last Admin: 11/23/17 09:07 Dose: 1 mg Methimazole (Tapazole) 10 mg PO TID [facility] Last Admin: 11/23/17 09:05 Dose: 10 mg Nystatin (Nystop Topical Powder) 0 gm TOP BID [facility] Last Admin: 11/22/17 18:01 Dose: Not Given Oxycodone HCl (Oxycodone Immediate Release Tab) 30 mg PO Q6 [facility] Last Admin: 11/23/17 05:28 Dose: 30 mg Polyethylene Glycol (Miralax) 17 gm PO BID PRN PRN Reason: Constipation Last Admin: 11/20/17 10:34 Dose: 17 gm Propranolol HCl (Inderal) 20 mg PO TID [facility] Last Admin: 11/23/17 09:07 Dose: 20 mg Quetiapine Fumarate (Seroquel) 12.5 mg PO [facility] PRN; Protocol PRN Reason: disorganized thoughts/psychosi - Labs Labs: 11/23/17 06:30 11/23/17 06:30 Assessment and Plan - Assessment and Plan (Free Text) Plan: Infectious diseases attending physician addendum Patient discussed with medical device assembler. I have reviewed the pertinent clinical information. I agree with the above findings, assessment and plan and in addition: Assessment headache, resolved fevers might be due to superficial thrombophlebitis from peripheral IV line and hyperthyroidism GERD cervical radiculopathy lumbar herniated disc depression Plan MRI brain is negative doppler U/S as well of lower extremities are negative peripheral IV line has been removed will continue to monitor off antibiotics patient had apparent fever last night but did not have other symptoms associated with it - will continue to monitor temperatures and will repeat septic work up if fever recurs will continue to monitor clinically
[2017-11-23] MEDS: methIMAzole 5 MG TAB PO SCH ×2 (09:05→15:53)
[2017-11-23] MEDS: Enoxaparin 40 mg Syringe SC SCH ×2 (09:05→09:17)
[2017-11-23] MEDS: Nystatin 100,000 Units/gm Topical Pow(15 gm) TOP SCH ×2 (10:00→18:12)
--- NOTE | 2017-11-23 15:41 | CP.PCM.PN ---
<Alfonzo Mclean - Last Filed: 11/23/17 15:37> Subjective - Date & Time of Evaluation Date of Evaluation: 11/23/17 Time of Evaluation: 07:00 - Subjective Subjective: Alfonzo Mclean, PGY1 Medicine Progress Note for Dr. Greer Patient was seen and examined at bedside this morning. Patient spiked a fever ( Tmax 103) last night at 10 pm. Patient is currently at a temp of 98.4 this morning. Today, patient denied subjective fever, chills, chest pain, shortness of breath, n/v/d. No other overnight changes. A full 12 point ROS was conducted and unremarkable except as stated above. Objective - Vital Signs/Intake and Output Vital Signs (last 24 hours): Temp Pulse Resp BP Pulse Ox 99.5 F 116 H 20 135/65 98 11/23/17 14:00 11/23/17 14:00 11/23/17 14:00 11/23/17 14:00 11/23/17 14:00 Intake and Output: 11/23/17 11/23/17 06:59 18:59 Intake Total 240 Balance 240 - Medications Medications: Current Medications Acetaminophen (Tylenol 325mg Tab) 650 mg PO Q4H PRN PRN Reason: Fever >100.4 F Last Admin: 11/22/17 21:52 Dose: 650 mg Amlodipine Besylate (Norvasc) 10 mg PO DAILY [facility] Last Admin: 11/23/17 09:06 Dose: 10 mg Docusate Sodium (Colace) 100 mg PO TID [facility] Last Admin: 11/23/17 09:05 Dose: 100 mg Enoxaparin Sodium (Lovenox) 40 mg SC DAILY [facility] PRN Reason: Protocol Last Admin: 11/23/17 09:17 Dose: Not Given Famotidine (Pepcid) 20 mg PO 1000 [facility] Last Admin: 11/23/17 09:07 Dose: 20 mg Haloperidol Lactate (Haldol) 4 mg IM Q6 PRN; Protocol PRN Reason: Agitation Ibuprofen (Motrin Tab) 400 mg PO Q6H PRN PRN Reason: Pain, moderate (4-7) Last Admin: 11/19/17 04:58 Dose: 400 mg Lisinopril (Zestril) 20 mg PO BID [facility] Last Admin: 11/23/17 09:07 Dose: 20 mg Lorazepam (Ativan) 1 mg PO Q6H PRN; Protocol PRN Reason: Agitation Last Admin: 11/21/17 16:06 Dose: 1 mg Lorazepam (Ativan) 1 mg PO Q12 [facility] PRN Reason: Protocol Last Admin: 11/23/17 09:07 Dose: 1 mg Methimazole (Tapazole) 10 mg PO TID [facility] Last Admin: 11/23/17 09:05 Dose: 10 mg Nystatin (Nystop Topical Powder) 0 gm TOP BID [facility] Last Admin: 11/22/17 18:01 Dose: Not Given Oxycodone HCl (Oxycodone Immediate Release Tab) 30 mg PO Q6 [facility] Last Admin: 11/23/17 05:28 Dose: 30 mg Polyethylene Glycol (Miralax) 17 gm PO BID PRN PRN Reason: Constipation Last Admin: 11/20/17 10:34 Dose: 17 gm Propranolol HCl (Inderal) 20 mg PO TID [facility] Last Admin: 11/23/17 09:07 Dose: 20 mg Quetiapine Fumarate (Seroquel) 12.5 mg PO [facility] PRN; Protocol PRN Reason: disorganized thoughts/psychosi - Labs Labs: 11/23/17 06:30 11/23/17 06:30 - Constitutional Appears: No Acute Distress - Head Exam Head Exam: ATRAUMATIC, NORMAL INSPECTION, NORMOCEPHALIC - Eye Exam Eye Exam: EOMI, Normal appearance, PERRL Pupil Exam: NORMAL ACCOMODATION, PERRL - ENT Exam ENT Exam: Mucous Membranes Moist, Normal Exam - Neck Exam Neck Exam: Full ROM Additional comments: No nuchal rigidity. - Respiratory Exam Respiratory Exam: Clear to Ausculation Bilateral, NORMAL BREATHING PATTERN. absent: Rales, Rhonchi, Wheezes - Cardiovascular Exam Cardiovascular Exam: REGULAR RHYTHM, +S1, +S2. absent: Murmur - GI/Abdominal Exam GI & Abdominal Exam: Soft, Normal Bowel Sounds. absent: Tenderness - Extremities Exam Extremities Exam: absent: Full ROM, Tenderness Additional comments: Significant muscle atrophy of the lower ext. Blisters on the right upper hand due to IV insertions. - Neurological Exam Neurological Exam: Alert, Awake, Oriented x3 Neuro motor strength exam: Left Upper Extremity: 5, Right Upper Extremity: 5, Left Lower Extremity: 4, Right Lower Extremity: 4 - Psychiatric Exam Psychiatric exam: Normal Mood - Skin Skin Exam: Dry, Intact, Normal Color, Warm Assessment and Plan - Assessment and Plan (Free Text) Assessment: Patient is a 37 year old male with a PMHx of cervical radiculopathy w/ herniated disc, cervical spondylosis w/ myelopathy, thoracic spondylosis and depression under hospital management for acute delirium. Currently suspect delirium 2/2 to chronic opiate usage. Patient's delirium has improved and he is now at baseline mental status. Continue to monitor on the floor. Patient has mod -severe muscle atrophy due to prolonged hospital stay, requires physical therapy. Plan: Fevers of undetermined origin -Currently afebrile on interview -Tmax 103 on 11/22 overnight; f/u repeat blood cx -Spoke to ID, fevers may also be associated with patients hyperthyroidism -Blistering noted at the upper extremities, f/u venous doppler of upper ext -As per ID, recommended removal of peripheral line as it may be a site of infection. Patient is switched to PO meds. -Currently, patient has no source of infection -Brain MRI: no evidence of herpes encephalitis -No leukocytosis -CT Chest/Abd/Pelvis (11/16): no acute findings -Blood Cx negative x2 -UA negative -UCx negative Muscle Atrophy - Lower extremity weakness related to bed immobility and multiple spinal surgeries - Physical Therapy was re-consulted. Please get the patient out of bed. - Encourage patient to get out of bed Acute Delerium 2/2 Chronic Opiate Use - improved -Psych re-consulted, f/u recs. Possible depression and underlying mood disorder. -Patient refused lumbar puncture. As per neuro, patient may not need LP since he has low suspicion for meningitis. -AAOx3 on exam (baseline mental status) -c/w Percocet q6 prn for pain control -AMS likely 2/2 opiates, benzos which have extended half life. -history of chronic back pain with multiple cervical/thoracic laminectomies with group home opiate use -moderate fall risk precautions -blood culture negative thus far -Head CT on 11/06: no acute intracranial pathology -currently on [facility]AS[facility] for monitoring -Neuro signed off case. Recs appreciated. Transaminitis -AST/ALT is 36/127 (11/22) -CT Chest/Abd/Pelvis (11/16): no acute intra-abdominal or intra-thoracic findings. Disc degeneration with large osteophytes throughout spine. -continue to monitor Hyperthyroidism -Endocrine recs appreciated. -T4 17, TSH .09 on repeat labs (prior T4/TSH was 12.7/.22) -c/w propranolol and methimazole HTN -BP normotensive -c/w zestril, propanolol and amlodipine -will monitor Constipation 2/2 Chronic Opiate Use - resolved -Normal bowel movements -c/w coalce and mirilax -regular diet DVT ppx: Lovenox GI ppx: pepcid Dispo: continue to monitor patient on the floor. Pending physical therapy. Case was discussed and reviewed with Dr. Greer. <Jomar Greer - Last Filed: 11/24/17 17:01> Objective - Vital Signs/Intake and Output Vital Signs (last 24 hours): Temp Pulse Resp BP Pulse Ox 100.8 F H 113 H 20 117/79 97 11/24/17 14:00 11/24/17 15:09 11/24/17 14:00 11/24/17 15:09 11/24/17 14:00 Intake and Output: 11/24/17 11/24/17 06:59 18:59 Intake Total 480 Output Total 200 Balance 280 - Medications Medications: Current Medications Acetaminophen (Tylenol 325mg Tab) 650 mg PO Q4H PRN PRN Reason: Fever >100.4 F Last Admin: 11/23/17 18:10 Dose: 650 mg Amlodipine Besylate (Norvasc) 10 mg PO DAILY [facility] Last Admin: 11/24/17 11:23 Dose: 10 mg Docusate Sodium (Colace) 100 mg PO TID [facility] Last Admin: 11/24/17 15:10 Dose: 100 mg Enoxaparin Sodium (Lovenox) 40 mg SC DAILY [facility] PRN Reason: Protocol Last Admin: 11/24/17 11:26 Dose: 40 mg Famotidine (Pepcid) 20 mg PO 1000 [facility] Last Admin: 11/24/17 11:25 Dose: 20 mg Haloperidol Lactate (Haldol) 4 mg IM Q6 PRN; Protocol PRN Reason: Agitation Ibuprofen (Motrin Tab) 400 mg PO Q6H PRN PRN Reason: Pain, moderate (4-7) Last Admin: 11/19/17 04:58 Dose: 400 mg Lisinopril (Zestril) 20 mg PO BID [facility] Last Admin: 11/24/17 11:25 Dose: 20 mg Lorazepam (Ativan) 1 mg PO Q6H PRN; Protocol PRN Reason: Agitation Last Admin: 11/21/17 16:06 Dose: 1 mg Lorazepam (Ativan) 1 mg PO Q12 [facility] PRN Reason: Protocol Last Admin: 11/24/17 11:25 Dose: 1 mg Methimazole (Tapazole) 10 mg PO TID [facility] Last Admin: 11/24/17 15:12 Dose: 10 mg Nystatin (Nystop Topical Powder) 0 gm TOP BID [facility] Last Admin: 11/24/17 11:29 Dose: 1 applic Oxycodone HCl (Oxycodone Immediate Release Tab) 30 mg PO Q6 [facility] Last Admin: 11/24/17 12:39 Dose: 30 mg Polyethylene Glycol (Miralax) 17 gm PO BID PRN PRN Reason: Constipation Last Admin: 11/24/17 11:22 Dose: 17 gm Propranolol HCl (Inderal) 20 mg PO TID [facility] Last Admin: 11/24/17 15:09 Dose: 20 mg Quetiapine Fumarate (Seroquel) 12.5 mg PO [facility] PRN; Protocol PRN Reason: disorganized thoughts/psychosi - Labs Labs: 11/24/17 06:20 11/24/17 06:20 Attending/Attestation - Attestation I have personally seen and examined this patient.: Yes I have fully participated in the care of the patient.: Yes I have reviewed all pertinent clinical information, including history, physical exam and plan: Yes Notes (Text): 11/24/17 16:59 attending note; Patient seen and examined with resident. Patient is a 37 year old male with past medical history that is significant for cervical radiculopathy with herniated disc, cervical spondylosis with myelopathy , thoracic spondylosis, and depression that presented to the emergency room with visual hallucinations. 1. Fever; resolved. secondary to right hand phlebitis. Improved significantly. patient is more alert and awake. Oriented to place and time. Right upper extremity ultrasound ordered. Currently patient has no peripheral IV. Patient refused spinal tap multiple times. Less likely meningitis. Neurology evaluation appreciated. CT of cervical/thoracic/lumbar spine is Negative for osteomyelitis. Treated with IVvancomycin, meropenem, and acyclovir. Currently off antibiotics. Repeat blood culture is negative. Blood, urine culture is negative. Chest xray with no active disease. CT chest/ abd/pelvisshows no acute intra-abdominal or intrathoracic findings; disc degeneration with large osteophytes projecting posteriorly throughout the spine ; the largest osteophyte is seen in the lower cervical spine. MRI brain shows unremarkable pre-and postcontrast enhanced MRI of the brain; no evidence of herpes encephalitis. we will follow-up with infectious disease. 2. Acute delirium. Likely secondary to chronic opioid use and polypharmacy. Continues to improve with restarting of oxycodone. psychiatric evaluation appreciated. Continue Ativan 1 mg every 12 hours. Continue Haldol and Ativan and as needed. 3. Leukocytosis. resolved. CT chest/abdomen/pelvis is negative. 4. Hyperthyroidism. Endocrinology following, recommendations appreciated. Continue propranolol and methimazole. 5. Essential hypertension. Continue lisinopril, Norvasc, and propanolol. Physical therapy evaluation requested. Patient is currently agreeing to do therapy. Case discussed in detail with the patient regarding current diagnosis and treatment plan
--- NOTE | 2017-11-23 15:59 | PN ---
DATE: 11/23/2017 ENDO FOLLOWUP NOTE LOCATION: In room 563. SUBJECTIVE: This is a 37-year-old male with recent overt hyperthyroidism, currently tolerating the high-dose medical therapy as given. His repeat chemistry showed a BUN of 13, sodium 132, potassium 3.6, chloride 92, CO2 of 34, glucose 120 and creatinine 0.4. The repeat thyroid study showed a T4 of 13.5 with a TSH of 0.17. So at this time, we will continue the Tapazole given as 10 mg p.o. t.i.d. after meals as ordered. We will obtain serial thyroid studies and titrate his dose regimen accordingly. We will also obtain serial chemistries and supplement accordingly as needed. We will follow. Ashley Mccauley MD
--- NOTE | 2017-11-23 19:48 | US ---
HISTORY: Arm pain and swelling. Evaluate for deep venous thrombosis. PHYSICIAN(S): Vinny Han MD. FINDINGS: The exam is limited. The visualized internal jugular veins are sonographically normal and compressible. No evidence of obstruction or thrombus this is seen. The visualized segments of the subclavian veins are patent with normal waveforms. No sonographic evidence of obstruction or thrombosis is seen. The visualized deep venous systems of both upper extremities proximally are sonographically normal and compressible. IMPRESSION: 1. No sonographic evidence for deep venous thrombosis in the visualized segments of both upper strategies.
[2017-11-24] MEDS: oxyCODONE 30 mg Immediate Release Tab PO SCH ×4 (05:07→23:52)
[2017-11-24 07:06] LABS: HEMOGLOBIN 12.8 g/dL (14.0-18.0); MEAN CELL VOLUME 85.8 fl (80.0-105.0); MEAN CORPUSCULAR HEMOGLOBIN 28.3 pg (25.0-35.0); MEAN PLATELET VOLUME 9.1 fl (7.0-11.0); RBC 4.52 10^6/uL (3.5-6.1); RED CELL DISTRIBUTION WIDTH 14.1 % (11.5-14.5)
[2017-11-24 07:18] LABS: ALT/SGPT 108 U/L (7-56); AST/SGOT 39 U/L (17-59); BLOOD UREA NITROGEN 14 mg/dL (7-21); CALCIUM 9.4 mg/dL (8.4-10.5); GFR NON-AFRICAN AMERICAN > 60
--- NOTE | 2017-11-24 08:14 | CP.PCM.PN ---
<Porter Zhangima - Last Filed: 11/24/17 11:16> Subjective - Date & Time of Evaluation Date of Evaluation: 11/24/17 Time of Evaluation: 09:11 - Subjective Subjective: [id number] ID Progress note for Dr. Rsoario Patient seen and examined at bedside. Nursing reported no acute events overnight. Patient was afebrile overnight and VSS. Patient's mentation has improved and is at baseline. He is AO x 3 but uncooperative with interview. Complete ROS unobtainable Objective - Vital Signs/Intake and Output Vital Signs (last 24 hours): Temp Pulse Resp BP Pulse Ox 98.7 F 106 H 20 133/87 133 H 11/24/17 06:00 11/24/17 06:00 11/24/17 06:00 11/24/17 06:00 11/24/17 06:00 Intake and Output: 11/24/17 11/24/17 06:59 18:59 Intake Total 480 Output Total 200 Balance 280 - Medications Medications: Current Medications Acetaminophen (Tylenol 325mg Tab) 650 mg PO Q4H PRN PRN Reason: Fever >100.4 F Last Admin: 11/23/17 18:10 Dose: 650 mg Amlodipine Besylate (Norvasc) 10 mg PO DAILY [facility] Last Admin: 11/23/17 09:06 Dose: 10 mg Docusate Sodium (Colace) 100 mg PO TID [facility] Last Admin: 11/23/17 18:11 Dose: 100 mg Enoxaparin Sodium (Lovenox) 40 mg SC DAILY [facility] PRN Reason: Protocol Last Admin: 11/23/17 09:17 Dose: Not Given Famotidine (Pepcid) 20 mg PO 1000 [facility] Last Admin: 11/23/17 09:07 Dose: 20 mg Haloperidol Lactate (Haldol) 4 mg IM Q6 PRN; Protocol PRN Reason: Agitation Ibuprofen (Motrin Tab) 400 mg PO Q6H PRN PRN Reason: Pain, moderate (4-7) Last Admin: 11/19/17 04:58 Dose: 400 mg Lisinopril (Zestril) 20 mg PO BID [facility] Last Admin: 11/23/17 18:11 Dose: 20 mg Lorazepam (Ativan) 1 mg PO Q6H PRN; Protocol PRN Reason: Agitation Last Admin: 11/21/17 16:06 Dose: 1 mg Lorazepam (Ativan) 1 mg PO Q12 [facility] PRN Reason: Protocol Last Admin: 11/23/17 21:43 Dose: 1 mg Methimazole (Tapazole) 10 mg PO TID [facility] Last Admin: 11/23/17 15:53 Dose: 10 mg Nystatin (Nystop Topical Powder) 0 gm TOP BID [facility] Last Admin: 11/23/17 18:12 Dose: Not Given Oxycodone HCl (Oxycodone Immediate Release Tab) 30 mg PO Q6 [facility] Last Admin: 11/24/17 05:07 Dose: 30 mg Polyethylene Glycol (Miralax) 17 gm PO BID PRN PRN Reason: Constipation Last Admin: 11/20/17 10:34 Dose: 17 gm Propranolol HCl (Inderal) 20 mg PO TID [facility] Last Admin: 11/23/17 18:11 Dose: 20 mg Quetiapine Fumarate (Seroquel) 12.5 mg PO [facility] PRN; Protocol PRN Reason: disorganized thoughts/psychosi - Labs Labs: 11/24/17 06:20 11/24/17 06:20 - Constitutional Appears: No Acute Distress, Chronically Ill - Head Exam Head Exam: ATRAUMATIC, NORMOCEPHALIC - Eye Exam Eye Exam: EOMI, Normal appearance. absent: Conjunctival injection, Scleral icterus - ENT Exam ENT Exam: Mucous Membranes Moist - Neck Exam Additional comments: decreased cervical flexion - Respiratory Exam Respiratory Exam: NORMAL BREATHING PATTERN. absent: Accessory Muscle Use, Rales , Rhonchi, Wheezes, Respiratory Distress - Cardiovascular Exam Cardiovascular Exam: Tachycardia, +S1, +S2 - GI/Abdominal Exam GI & Abdominal Exam: Soft, Normal Bowel Sounds. absent: Firm, Guarding, Rigid, Tenderness - Rectal Exam Rectal Exam: Deferred - Extremities Exam Extremities Exam: absent: Pedal Edema Additional comments: atrophy LE b/l - Neurological Exam Neurological Exam: Alert, Awake, Oriented x3 - Psychiatric Exam Psychiatric exam: Flat Affect - Skin Skin Exam: Dry, Intact Assessment and Plan - Assessment and Plan (Free Text) Assessment: 37 yo male PMHx cervical radiculopathy w/ herniated disc, cervical spondylosis w / myelopathy, thoracic spondylosis and depression under hospital management for acute delirium. ID consulted for fever of unknown origin Plan: -leukocytosis resolved -Hep panel and HIV negative -peripheral lines removed and patient on PO medications -elevated temp and tachycardia likely secondary to hyperthyroidism -MRI brain: unremarkable -dopplers negative 11/15 repeat dopplers b/l UE and LE negative 11/21 -Blood cultures x 2 on 11/21 prelim negative blood cultures x 2 on 11/15 and 11/07 and blood culture x 1 on 11/13 negative urine culture 11/06, 11/15, and 11/17 negative MRSA nares negative 11/22 -CT cervical/thoracic/lumbar has no evidence of abscess/infx process -CT Chest/Abd/Pelvis 11/16: no acute intra-abdominal or intra-thoracic findings. Disc degeneration with large osteophytes throughout spine -refusing spinal tap -continue to monitor off antibiotics -continue management as per primary Discussed with Dr. Abraham Zhang PGY3 <Gonzalo Rosario - Last Filed: 11/24/17 17:26> Objective - Vital Signs/Intake and Output Vital Signs (last 24 hours): Temp Pulse Resp BP Pulse Ox 100.8 F H 113 H 20 117/79 97 11/24/17 14:00 11/24/17 15:09 11/24/17 14:00 11/24/17 15:09 11/24/17 14:00 Intake and Output: 11/24/17 11/24/17 06:59 18:59 Intake Total 480 Output Total 200 Balance 280 - Medications Medications: Current Medications Acetaminophen (Tylenol 325mg Tab) 650 mg PO Q4H PRN PRN Reason: Fever >100.4 F Last Admin: 11/23/17 18:10 Dose: 650 mg Amlodipine Besylate (Norvasc) 10 mg PO DAILY [facility] Last Admin: 11/24/17 11:23 Dose: 10 mg Docusate Sodium (Colace) 100 mg PO TID [facility] Last Admin: 11/24/17 15:10 Dose: 100 mg Enoxaparin Sodium (Lovenox) 40 mg SC DAILY [facility] PRN Reason: Protocol Last Admin: 11/24/17 11:26 Dose: 40 mg Famotidine (Pepcid) 20 mg PO 1000 [facility] Last Admin: 11/24/17 11:25 Dose: 20 mg Haloperidol Lactate (Haldol) 4 mg IM Q6 PRN; Protocol PRN Reason: Agitation Ibuprofen (Motrin Tab) 400 mg PO Q6H PRN PRN Reason: Pain, moderate (4-7) Last Admin: 11/19/17 04:58 Dose: 400 mg Lisinopril (Zestril) 20 mg PO BID [facility] Last Admin: 11/24/17 11:25 Dose: 20 mg Lorazepam (Ativan) 1 mg PO Q6H PRN; Protocol PRN Reason: Agitation Last Admin: 11/21/17 16:06 Dose: 1 mg Lorazepam (Ativan) 1 mg PO Q12 [facility] PRN Reason: Protocol Last Admin: 11/24/17 11:25 Dose: 1 mg Methimazole (Tapazole) 10 mg PO TID [facility] Last Admin: 11/24/17 15:12 Dose: 10 mg Nystatin (Nystop Topical Powder) 0 gm TOP BID [facility] Last Admin: 11/24/17 11:29 Dose: 1 applic Oxycodone HCl (Oxycodone Immediate Release Tab) 30 mg PO Q6 [facility] Last Admin: 11/24/17 12:39 Dose: 30 mg Polyethylene Glycol (Miralax) 17 gm PO BID PRN PRN Reason: Constipation Last Admin: 11/24/17 11:22 Dose: 17 gm Propranolol HCl (Inderal) 20 mg PO TID [facility] Last Admin: 11/24/17 15:09 Dose: 20 mg Quetiapine Fumarate (Seroquel) 12.5 mg PO [facility] PRN; Protocol PRN Reason: disorganized thoughts/psychosi - Labs Labs: 11/24/17 06:20 11/24/17 06:20 Assessment and Plan - Assessment and Plan (Free Text) Plan: Infectious diseases attending physician addendum Patient discussed with medical research associate. I have reviewed the pertinent clinical information. I agree with the above findings, assessment and plan and in addition: Assessment headache, resolved fevers might be due to superficial thrombophlebitis from peripheral IV line and hyperthyroidism, currently resolved GERD cervical radiculopathy lumbar herniated disc depression Plan MRI brain is negative doppler U/S as well of lower extremities are negative peripheral IV line has been removed will continue to monitor off antibiotics will continue to monitor clinically
[2017-11-24] MEDS ORDERED: Potassium Chloride 40 mEq/30 ml LIQ UD PO ONE (11:20)
[2017-11-24] MEDS: POLYETHYLENE GLYCOL 3350 17 GM/Dose PACKET PO PRN (11:22)
[2017-11-24] MEDS: methIMAzole 5 MG TAB PO SCH ×3 (11:24→18:41)
[2017-11-24] MEDS: Enoxaparin 40 mg Syringe SC SCH (11:26)
[2017-11-24] MEDS: Nystatin 100,000 Units/gm Topical Pow(15 gm) TOP SCH ×2 (11:29→18:42)
--- NOTE | 2017-11-24 16:12 | CP.PCM.PN ---
<Alfonzo Mclean - Last Filed: 11/24/17 16:09> Subjective - Date & Time of Evaluation Date of Evaluation: 11/24/17 Time of Evaluation: 07:00 - Subjective Subjective: Alfonzo Mclean, PGY1 Medicine Progress Note for Dr. Greer Patient was seen and examined at bedside this morning. Patient was seen receiving therapy with PT during time of interview, sitting out of bed. Patient mentioned that he would be more comfortable if his mother was present during PT sessions and she could help him. Medical team was made aware, mother was called later after interview and she said that she will be present early tomorrow morning. Otherwise, patient denied chest pain, sob, abdominal pain, n/v/d, bowel /bladder changes. No fevers overnight. Vital signs are stable. A full 12 point ROS was conducted and unremarkable except as stated above. Objective - Vital Signs/Intake and Output Vital Signs (last 24 hours): Temp Pulse Resp BP Pulse Ox 100.8 F H 113 H 20 117/79 97 11/24/17 14:00 11/24/17 15:09 11/24/17 14:00 11/24/17 15:09 11/24/17 14:00 Intake and Output: 11/24/17 11/24/17 06:59 18:59 Intake Total 480 Output Total 200 Balance 280 - Medications Medications: Current Medications Acetaminophen (Tylenol 325mg Tab) 650 mg PO Q4H PRN PRN Reason: Fever >100.4 F Last Admin: 11/23/17 18:10 Dose: 650 mg Amlodipine Besylate (Norvasc) 10 mg PO DAILY [facility] Last Admin: 11/24/17 11:23 Dose: 10 mg Docusate Sodium (Colace) 100 mg PO TID [facility] Last Admin: 11/24/17 15:10 Dose: 100 mg Enoxaparin Sodium (Lovenox) 40 mg SC DAILY [facility] PRN Reason: Protocol Last Admin: 11/24/17 11:26 Dose: 40 mg Famotidine (Pepcid) 20 mg PO 1000 [facility] Last Admin: 11/24/17 11:25 Dose: 20 mg Haloperidol Lactate (Haldol) 4 mg IM Q6 PRN; Protocol PRN Reason: Agitation Ibuprofen (Motrin Tab) 400 mg PO Q6H PRN PRN Reason: Pain, moderate (4-7) Last Admin: 11/19/17 04:58 Dose: 400 mg Lisinopril (Zestril) 20 mg PO BID [facility] Last Admin: 11/24/17 11:25 Dose: 20 mg Lorazepam (Ativan) 1 mg PO Q6H PRN; Protocol PRN Reason: Agitation Last Admin: 11/21/17 16:06 Dose: 1 mg Lorazepam (Ativan) 1 mg PO Q12 [facility] PRN Reason: Protocol Last Admin: 11/24/17 11:25 Dose: 1 mg Methimazole (Tapazole) 10 mg PO TID [facility] Last Admin: 11/24/17 15:12 Dose: 10 mg Nystatin (Nystop Topical Powder) 0 gm TOP BID [facility] Last Admin: 11/24/17 11:29 Dose: 1 applic Oxycodone HCl (Oxycodone Immediate Release Tab) 30 mg PO Q6 [facility] Last Admin: 11/24/17 12:39 Dose: 30 mg Polyethylene Glycol (Miralax) 17 gm PO BID PRN PRN Reason: Constipation Last Admin: 11/24/17 11:22 Dose: 17 gm Propranolol HCl (Inderal) 20 mg PO TID [facility] Last Admin: 11/24/17 15:09 Dose: 20 mg Quetiapine Fumarate (Seroquel) 12.5 mg PO [facility] PRN; Protocol PRN Reason: disorganized thoughts/psychosi - Labs Labs: 11/24/17 06:20 11/24/17 06:20 - Constitutional Appears: No Acute Distress - Head Exam Head Exam: ATRAUMATIC, NORMAL INSPECTION, NORMOCEPHALIC - Eye Exam Eye Exam: EOMI, Normal appearance, PERRL - ENT Exam ENT Exam: Mucous Membranes Moist, Normal Exam - Neck Exam Neck Exam: Full ROM, Normal Inspection. absent: Lymphadenopathy - Respiratory Exam Respiratory Exam: Clear to Ausculation Bilateral, NORMAL BREATHING PATTERN. absent: Rales, Rhonchi, Wheezes, Respiratory Distress - Cardiovascular Exam Cardiovascular Exam: REGULAR RHYTHM, +S1, +S2. absent: Murmur - GI/Abdominal Exam GI & Abdominal Exam: Soft, Normal Bowel Sounds. absent: Tenderness - Extremities Exam Extremities Exam: Full ROM, Normal Capillary Refill. absent: Joint Swelling, Pedal Edema Additional comments: Muscle atrophy of the bilateral lower extremities. - Neurological Exam Neurological Exam: Alert, Awake, CN II-XII Intact, Oriented x3 Neuro motor strength exam: Left Upper Extremity: 5, Right Upper Extremity: 5, Left Lower Extremity: 4, Right Lower Extremity: 4 - Skin Skin Exam: Dry, Intact, Normal Color, Warm Assessment and Plan - Assessment and Plan (Free Text) Assessment: Patient is a 37 year old male with a PMHx of cervical radiculopathy w/ herniated disc, cervical spondylosis w/ myelopathy, thoracic spondylosis and depression under hospital management for acute delirium. Admitted for delirium 2 /2 to chronic opiate usage, which has resolved and he is now at baseline mental status. Continue to monitor on the floor. Patient has mod-severe muscle atrophy due to prolonged hospital stay, requires physical therapy. Plan: Muscle Atrophy 2/2 Immobility and Multiple Spinal Surgeries - Lower extremity weakness; c/w PT to get patient out of bed - Patient wants mother to be present for PT sessions and to help him with exercises; mother (Sophie) was contacted on 11/24, she will be present tomorrow morning. - Physical Therapy was re-consulted. Fevers of undetermined origin -Currently afebrile with no leukocytosis -Tmax 103 on 11/22 overnight; No infectious source at this time -Spoke to ID, fevers may also be associated with patients hyperthyroidism -Blistering noted at the upper extremities, vnous doppler of upper ext was negative for DVT -Peripheral line was removed. Patient is on PO meds. -Brain MRI: no evidence of herpes encephalitis -CT Chest/Abd/Pelvis (11/16): no acute findings -Blood Cx negative x2 -UA negative -UCx negative Acute Delerium 2/2 Chronic Opiate Use - improved -Psych re-consulted, f/u recs. -AAOx3 on exam (baseline mental status) -Patient refused lumbar puncture. As per neuro, patient may not need LP since he has low suspicion for meningitis. -c/w Percocet q6 prn for pain control -AMS likely 2/2 opiates, benzos which have extended half life. -Hx of chronic back pain with multiple cervical/thoracic laminectomies with termite treater opiate use -Head CT on 11/06: no acute intracranial pathology -Neuro signed off case. Recs appreciated. Transaminitis - improving -AST/ALT is 39/108 -CT Chest/Abd/Pelvis (11/16): no acute intra-abdominal or intra-thoracic findings. Disc degeneration with large osteophytes throughout spine. Hyperthyroidism -c/w propranolol and methimazole -Endocrine recs appreciated. -T4 17, TSH .09 on repeat labs (prior T4/TSH was 12.7/.22) HTN -BP normotensive -c/w zestril, propanolol and amlodipine DVT ppx: Lovenox GI ppx: pepcid Dispo: continue to monitor patient on the floor. Continue with Physical Therapy. Case was discussed and reviewed with Dr. Greer. <Jomar Greer - Last Filed: 11/24/17 17:05> Objective - Vital Signs/Intake and Output Vital Signs (last 24 hours): Temp Pulse Resp BP Pulse Ox 100.8 F H 113 H 20 117/79 97 11/24/17 14:00 11/24/17 15:09 11/24/17 14:00 11/24/17 15:09 11/24/17 14:00 Intake and Output: 11/24/17 11/24/17 06:59 18:59 Intake Total 480 Output Total 200 Balance 280 - Medications Medications: Current Medications Acetaminophen (Tylenol 325mg Tab) 650 mg PO Q4H PRN PRN Reason: Fever >100.4 F Last Admin: 11/23/17 18:10 Dose: 650 mg Amlodipine Besylate (Norvasc) 10 mg PO DAILY [facility] Last Admin: 11/24/17 11:23 Dose: 10 mg Docusate Sodium (Colace) 100 mg PO TID [facility] Last Admin: 11/24/17 15:10 Dose: 100 mg Enoxaparin Sodium (Lovenox) 40 mg SC DAILY [facility] PRN Reason: Protocol Last Admin: 11/24/17 11:26 Dose: 40 mg Famotidine (Pepcid) 20 mg PO 1000 [facility] Last Admin: 11/24/17 11:25 Dose: 20 mg Haloperidol Lactate (Haldol) 4 mg IM Q6 PRN; Protocol PRN Reason: Agitation Ibuprofen (Motrin Tab) 400 mg PO Q6H PRN PRN Reason: Pain, moderate (4-7) Last Admin: 11/19/17 04:58 Dose: 400 mg Lisinopril (Zestril) 20 mg PO BID [facility] Last Admin: 11/24/17 11:25 Dose: 20 mg Lorazepam (Ativan) 1 mg PO Q6H PRN; Protocol PRN Reason: Agitation Last Admin: 11/21/17 16:06 Dose: 1 mg Lorazepam (Ativan) 1 mg PO Q12 [facility] PRN Reason: Protocol Last Admin: 11/24/17 11:25 Dose: 1 mg Methimazole (Tapazole) 10 mg PO TID [facility] Last Admin: 11/24/17 15:12 Dose: 10 mg Nystatin (Nystop Topical Powder) 0 gm TOP BID [facility] Last Admin: 11/24/17 11:29 Dose: 1 applic Oxycodone HCl (Oxycodone Immediate Release Tab) 30 mg PO Q6 [facility] Last Admin: 11/24/17 12:39 Dose: 30 mg Polyethylene Glycol (Miralax) 17 gm PO BID PRN PRN Reason: Constipation Last Admin: 11/24/17 11:22 Dose: 17 gm Propranolol HCl (Inderal) 20 mg PO TID [facility] Last Admin: 11/24/17 15:09 Dose: 20 mg Quetiapine Fumarate (Seroquel) 12.5 mg PO [facility] PRN; Protocol PRN Reason: disorganized thoughts/psychosi - Labs Labs: 11/24/17 06:20 11/24/17 06:20 Attending/Attestation - Attestation I have personally seen and examined this patient.: Yes I have fully participated in the care of the patient.: Yes I have reviewed all pertinent clinical information, including history, physical exam and plan: Yes Notes (Text): 11/24/17 17:01 attending note; Patient seen and examined with resident. Patient is getting physical therapy. Able to sit and stand up with assistance. Patient is a 37 year old male with past medical history that is significant for cervical radiculopathy with herniated disc, cervical spondylosis with myelopathy , thoracic spondylosis, and depression that presented to the emergency room with visual hallucinations. 1. Fever; resolved. secondary to right hand phlebitis. Improved significantly. patient is more alert and awake. Oriented to place and time. Right upper extremity ultrasound is negative for DVT. Currently patient has no peripheral IV. Currently off antibiotics. Blood, urine culture is negative. Chest xray with no active disease. CT chest/ abd/pelvisshows no acute intra-abdominal or intrathoracic findings; disc degeneration with large osteophytes projecting posteriorly throughout the spine ; the largest osteophyte is seen in the lower cervical spine. MRI brain shows unremarkable pre-and postcontrast enhanced MRI of the brain; no evidence of herpes encephalitis. Fever and maybe possibly due to hypothyroidism. 2. Acute delirium. Likely secondary to chronic opioid use and polypharmacy. Continues to improve with restarting of oxycodone. psychiatric evaluation appreciated. 3. Leukocytosis. resolved. CT chest/abdomen/pelvis is negative. 4. Hyperthyroidism. Endocrinology following, recommendations appreciated. Continue propranolol and methimazole. 5. Essential hypertension. Continue lisinopril, Norvasc, and propanolol. Physical therapy evaluation appreciated. Case discussed with patient's mother in detail. Case discussed with case packer and sealer in detail. Patient has no benefits for subacute rehabilitation placement. Patient is educated to do physical therapy. Patient's mother will be present tomorrow to encourage the patient to get PT inhouse. Case discussed in detail with the patient regarding current diagnosis and treatment plan
--- NOTE | 2017-11-24 20:52 | PN ---
DATE: 11/24/2017 SUBJECTIVE: Medical team asked this chief underwriter to reconsult. This chief underwriter evaluated the patient in the past. Sign off on 11/18/2017 because the patient was improving. This chief underwriter's impression was that the patient had delirium. The patient was not participating in physical therapy. Had episodes of confusion, that is why medical team called for reconsult because of possible depressive symptoms which contributed to the patient's presentation. The patient was delirious, the patient is very poor and unreliable historian, laying down with eyes closed and moaning. The patient answers were not related to the questions which was asked. The patient was saying that he always feels depressed, but denied any thoughts of killing himself. The patient then became mute and did not want to continue the interview. VITAL SIGNS: Seems to be stable, but the patient had a fever of 100.8 today and pulse is 113, blood pressure 117/79, respiration 20, oxygen saturation is 97. MEDICATIONS: Reviewed. The patient is on Tylenol, Norvasc, Colace, Lovenox, Pepcid, Haldol 4 mg IM every 6 hours p.r.n. for agitation. The patient did not get any of the Haldol, lisinopril, Ativan 1 mg p.o. every 6 hours p.r.n. Most recent was on 11/21/2017, Ativan 1 mg every 12 hours schedule. The patient is on Tapazole, nystatin, oxycodone, MiraLax, Inderal, Seroquel 12.5 mg as needed. The patient did not require that. LABORATORY DATA: Reviewed from today. Hemoglobin 12.8, hematocrit 38.8. Coagulation reviewed. Chemistry reviewed. The patient had potassium 3.4. Urinalysis reviewed. TSH most recent was 13.5 on 11/21/2017. Serology was negative. MENTAL STATUS EXAMINATION: This chief underwriter described above. The patient has episodes of confusion. The patient was laying down and moaning. "Mood always feel depressed." Affect was flat and not reactive. Thought process, concrete. Sometimes it is circumstantial. Thought content, the patient denied any thoughts of killing himself, but presented to be confused at times and has episodes of change in mental status. Insight and judgment seems to be very limited to impaired. Impulses are well controlled as of now. IMPRESSION: Most likely the patient is in delirium stage, which is related to the medical issues, chronic back pain. As per history, the patient has polypharmacy. The patient's TSH level was elevated. Also could contribute to the patient's presentation. At the same time, as per family report, the patient has history of major depressive disorder versus mood disorder due to general medical condition after back surgery. PLAN: Continue current management. Continue current medications. This chief underwriter would like to advise medical team to ask for reconsult for endocrinology. From this chief underwriter's impression, medical issues come first and the patient's presentation is not consistent with major depressive disorder. Most likely the patient has delirium, rule out mood disorder due to general medical condition or delirium stage. Family should be involved. Please see this chief underwriter's previous notes for more detailed information. This chief underwriter can follow up on this patient every other day. Should you have any questions give me a call back. Thank you very much for letting me participate in the care of your patient. Taylor Issa MD [facility]
[2017-11-25] MEDS: oxyCODONE 30 mg Immediate Release Tab PO SCH ×5 (05:28→20:03)
[2017-11-25 07:11] LABS: HEMOGLOBIN 11.8 g/dL (14.0-18.0); MEAN CELL VOLUME 87.5 fl (80.0-105.0); MEAN CORPUSCULAR HEMOGLOBIN 27.9 pg (25.0-35.0); MEAN CORPUSCULAR HGB CONC 31.9 g/dl (31.0-37.0); MEAN PLATELET VOLUME 8.9 fl (7.0-11.0); RBC 4.23 10^6/uL (3.5-6.1); RED CELL DISTRIBUTION WIDTH 14.5 % (11.5-14.5); WHITE BLOOD COUNT 8.9 10^3/ul (4.5-11.0)
[2017-11-25 07:32] LABS: ALBUMIN 3.8 g/dL (3.0-4.8); ALT/SGPT 91 U/L (7-56); AST/SGOT 30 U/L (17-59); BLOOD UREA NITROGEN 12 mg/dL (7-21); CALCIUM 9.8 mg/dL (8.4-10.5); GFR NON-AFRICAN AMERICAN > 60
[2017-11-25 07:37] LABS: FREE T4 2.04 ng/dL (0.78-2.19); T4 11.9 ug/dL (5.5-11.0)
--- NOTE | 2017-11-25 08:03 | CP.PCM.PN ---
<Evie Zhang - Last Filed: 11/25/17 14:27> Subjective - Date & Time of Evaluation Date of Evaluation: 11/25/17 Time of Evaluation: 08:20 - Subjective Subjective: [id number] ID Progress note for Dr. Rosario Patient seen and examined at bedside. Nursing reported patient had low grade temp 100.8F overnight. Patient was also delirious as per nursing and grabbing things in the air. This AM he was uncooperative with interview and exam. Objective - Vital Signs/Intake and Output Vital Signs (last 24 hours): Temp Pulse Resp BP Pulse Ox 99.3 F 105 H 18 132/76 96 11/24/17 22:58 11/24/17 22:58 11/24/17 22:58 11/24/17 22:58 11/24/17 22:58 Intake and Output: 11/25/17 11/25/17 06:59 18:59 Intake Total 360 Balance 360 - Medications Medications: Current Medications Acetaminophen (Tylenol 325mg Tab) 650 mg PO Q4H PRN PRN Reason: Fever >100.4 F Last Admin: 11/23/17 18:10 Dose: 650 mg Amlodipine Besylate (Norvasc) 10 mg PO DAILY [facility] Last Admin: 11/24/17 11:23 Dose: 10 mg Docusate Sodium (Colace) 100 mg PO TID [facility] Last Admin: 11/24/17 18:38 Dose: 100 mg Enoxaparin Sodium (Lovenox) 40 mg SC DAILY [facility] PRN Reason: Protocol Last Admin: 11/24/17 11:26 Dose: 40 mg Famotidine (Pepcid) 20 mg PO 1000 [facility] Last Admin: 11/24/17 11:25 Dose: 20 mg Haloperidol Lactate (Haldol) 4 mg IM Q6 PRN; Protocol PRN Reason: Agitation Ibuprofen (Motrin Tab) 400 mg PO Q6H PRN PRN Reason: Pain, moderate (4-7) Last Admin: 11/19/17 04:58 Dose: 400 mg Lisinopril (Zestril) 20 mg PO BID [facility] Last Admin: 11/24/17 18:43 Dose: 20 mg Lorazepam (Ativan) 1 mg PO Q6H PRN; Protocol PRN Reason: Agitation Last Admin: 11/21/17 16:06 Dose: 1 mg Lorazepam (Ativan) 1 mg PO Q12 [facility] PRN Reason: Protocol Last Admin: 11/24/17 21:45 Dose: 1 mg Methimazole (Tapazole) 10 mg PO TID [facility] Last Admin: 11/24/17 18:41 Dose: 10 mg Nystatin (Nystop Topical Powder) 0 gm TOP BID [facility] Last Admin: 11/24/17 18:42 Dose: 1 applic Oxycodone HCl (Oxycodone Immediate Release Tab) 30 mg PO Q6 [facility] Last Admin: 11/25/17 05:33 Dose: Not Given Polyethylene Glycol (Miralax) 17 gm PO BID PRN PRN Reason: Constipation Last Admin: 11/24/17 11:22 Dose: 17 gm Propranolol HCl (Inderal) 20 mg PO TID [facility] Last Admin: 11/24/17 18:44 Dose: 20 mg Quetiapine Fumarate (Seroquel) 12.5 mg PO [facility] PRN; Protocol PRN Reason: disorganized thoughts/psychosi - Labs Labs: 11/25/17 06:30 11/25/17 06:30 - Constitutional Appears: No Acute Distress, Chronically Ill - Head Exam Head Exam: ATRAUMATIC, NORMAL INSPECTION, NORMOCEPHALIC - Eye Exam Eye Exam: Normal appearance. absent: Conjunctival injection, Scleral icterus - ENT Exam ENT Exam: Mucous Membranes Moist - Respiratory Exam Respiratory Exam: NORMAL BREATHING PATTERN. absent: Accessory Muscle Use, Respiratory Distress - Cardiovascular Exam Cardiovascular Exam: Tachycardia, +S1, +S2 - GI/Abdominal Exam GI & Abdominal Exam: Soft. absent: Tenderness - Rectal Exam Rectal Exam: Deferred - Extremities Exam Additional comments: atrophy LE b/l - Neurological Exam Neurological Exam: Alert, Awake - Psychiatric Exam Psychiatric exam: Flat Affect - Skin Skin Exam: Dry, Intact Assessment and Plan - Assessment and Plan (Free Text) Assessment: 37 yo male PMHx cervical radiculopathy w/ herniated disc, cervical spondylosis w / myelopathy, thoracic spondylosis and depression under hospital management for acute delirium. ID consulted for fever of unknown origin Plan: -MRI brain: unremarkable -dopplers negative LE 11/15 negative dopplers LE 11/21 negative dopplers UE 11/23 -prelim negative blood cultures x 2 blood cultures x 2 on 11/15 and 11/07 and blood culture x 1 on 11/13 negative urine culture 11/06, 11/15, and 11/17 negative -suspect delirium 2/2 to chronic opiate use -CT cervical/thoracic/lumbar has no evidence of abscess/infx process -CT Chest/Abd/Pelvis 11/16: no acute intra-abdominal or intra-thoracic findings. Disc degeneration with large osteophytes throughout spine -if patient has another temp > 100.4F nursing instructed to do following septic workup at the time of temp: CBC, blood cx, urine cx, sputum cx, procal, CXR -continue management as per primary Discussed with Dr. Abraham Zhang PGY3 <Gonzalo Rosario - Last Filed: 11/25/17 15:58> Objective - Vital Signs/Intake and Output Vital Signs (last 24 hours): Temp Pulse Resp BP Pulse Ox 98.7 F 118 H 20 152/112 H 100 11/25/17 14:00 11/25/17 14:55 11/25/17 14:00 11/25/17 14:55 11/25/17 14:00 Intake and Output: 11/25/17 11/25/17 06:59 18:59 Intake Total 360 Balance 360 - Medications Medications: Current Medications Acetaminophen (Tylenol 325mg Tab) 650 mg PO Q4H PRN PRN Reason: Fever >100.4 F Last Admin: 11/23/17 18:10 Dose: 650 mg Amlodipine Besylate (Norvasc) 10 mg PO DAILY [facility] Last Admin: 11/25/17 10:58 Dose: 10 mg Docusate Sodium (Colace) 100 mg PO TID [facility] Last Admin: 11/25/17 14:55 Dose: 100 mg Enoxaparin Sodium (Lovenox) 40 mg SC DAILY [facility] PRN Reason: Protocol Last Admin: 11/25/17 10:58 Dose: 40 mg Famotidine (Pepcid) 20 mg PO 1000 [facility] Last Admin: 11/25/17 11:01 Dose: 20 mg Haloperidol Lactate (Haldol) 4 mg IM Q6 PRN; Protocol PRN Reason: Agitation Ibuprofen (Motrin Tab) 400 mg PO Q6H PRN PRN Reason: Pain, moderate (4-7) Last Admin: 11/19/17 04:58 Dose: 400 mg Lisinopril (Zestril) 20 mg PO BID [facility] Last Admin: 11/25/17 10:59 Dose: 20 mg Lorazepam (Ativan) 1 mg PO Q6H PRN; Protocol PRN Reason: Agitation Last Admin: 11/21/17 16:06 Dose: 1 mg Lorazepam (Ativan) 1 mg PO Q12 [facility] PRN Reason: Protocol Last Admin: 11/25/17 11:01 Dose: 1 mg Methimazole (Tapazole) 10 mg PO TID [facility] Last Admin: 11/25/17 14:55 Dose: 10 mg Nystatin (Nystop Topical Powder) 0 gm TOP BID [facility] Last Admin: 11/25/17 15:14 Dose: 1 applic Oxycodone HCl (Oxycodone Immediate Release Tab) 30 mg PO Q6 [facility] Last Admin: 11/25/17 15:13 Dose: 30 mg Polyethylene Glycol (Miralax) 17 gm PO BID PRN PRN Reason: Constipation Last Admin: 11/25/17 10:57 Dose: 17 gm Propranolol HCl (Inderal) 20 mg PO TID [facility] Last Admin: 11/25/17 14:55 Dose: 20 mg Quetiapine Fumarate (Seroquel) 12.5 mg PO [facility] PRN; Protocol PRN Reason: disorganized thoughts/psychosi - Labs Labs: 11/25/17 06:30 11/25/17 06:30 Assessment and Plan - Assessment and Plan (Free Text) Plan: Infectious diseases attending physician addendum Patient discussed with medical reimbursement manager. I have reviewed the pertinent clinical information. I agree with the above findings, assessment and plan and in addition: Assessment headache, resolved fevers might be due to superficial thrombophlebitis from peripheral IV line and hyperthyroidism probable delirium from medication use GERD cervical radiculopathy lumbar herniated disc depression Plan MRI brain is negative doppler U/S as well of lower extremities are negative peripheral IV line has been removed will continue to monitor off antibiotics - patient had low grade fever and will monitor and repeat septic work up if it recurs will continue to monitor clinically follow up further recommendations of Neurology and Psych
[2017-11-25] MEDS: POLYETHYLENE GLYCOL 3350 17 GM/Dose PACKET PO PRN (10:57)
[2017-11-25] MEDS: Enoxaparin 40 mg Syringe SC SCH (10:58)
[2017-11-25] MEDS: methIMAzole 5 MG TAB PO SCH ×3 (11:01→18:20)
--- NOTE | 2017-11-25 14:22 | CP.PCM.PN ---
<Alfonzo Mclean - Last Filed: 11/25/17 14:17> Subjective - Date & Time of Evaluation Date of Evaluation: 11/25/17 Time of Evaluation: 07:00 - Subjective Subjective: Alfonzo Mclean, PGY1 Medicine Progress Note for Dr. Greer Patient was seen and examined at bedside this morning. Patient said that his mother came by earlier to drop off food for him and to help him with getting out of bed. However, his mother was not present at bedside during time of interview. Nursing staff informed me that no family member was present at bedside for the patient. Otherwise, patient spiked a fever at 2 pm yesterday, Tmax 100.8. Patient is currently afebrile overnight. He denies cp, sob, abdominal pain, n/v/d. Again, the patient was stressed the importance of continuing with PT; patient verbalized understanding. A full 12 point ROS was conducted and unremarkable except as stated above. Objective - Vital Signs/Intake and Output Vital Signs (last 24 hours): Temp Pulse Resp BP Pulse Ox 98.2 F 100 H 20 137/80 100 11/25/17 06:00 11/25/17 11:00 11/25/17 06:00 11/25/17 11:00 11/25/17 06:00 Intake and Output: 11/25/17 11/25/17 06:59 18:59 Intake Total 360 Balance 360 - Medications Medications: Current Medications Acetaminophen (Tylenol 325mg Tab) 650 mg PO Q4H PRN PRN Reason: Fever >100.4 F Last Admin: 11/23/17 18:10 Dose: 650 mg Amlodipine Besylate (Norvasc) 10 mg PO DAILY [facility] Last Admin: 11/25/17 10:58 Dose: 10 mg Docusate Sodium (Colace) 100 mg PO TID [facility] Last Admin: 11/25/17 10:59 Dose: 100 mg Enoxaparin Sodium (Lovenox) 40 mg SC DAILY [facility] PRN Reason: Protocol Last Admin: 11/25/17 10:58 Dose: 40 mg Famotidine (Pepcid) 20 mg PO 1000 [facility] Last Admin: 11/25/17 11:01 Dose: 20 mg Haloperidol Lactate (Haldol) 4 mg IM Q6 PRN; Protocol PRN Reason: Agitation Ibuprofen (Motrin Tab) 400 mg PO Q6H PRN PRN Reason: Pain, moderate (4-7) Last Admin: 11/19/17 04:58 Dose: 400 mg Lisinopril (Zestril) 20 mg PO BID [facility] Last Admin: 11/25/17 10:59 Dose: 20 mg Lorazepam (Ativan) 1 mg PO Q6H PRN; Protocol PRN Reason: Agitation Last Admin: 11/21/17 16:06 Dose: 1 mg Lorazepam (Ativan) 1 mg PO Q12 [facility] PRN Reason: Protocol Last Admin: 11/25/17 11:01 Dose: 1 mg Methimazole (Tapazole) 10 mg PO TID [facility] Last Admin: 11/25/17 11:01 Dose: 10 mg Nystatin (Nystop Topical Powder) 0 gm TOP BID [facility] Last Admin: 11/24/17 18:42 Dose: 1 applic Oxycodone HCl (Oxycodone Immediate Release Tab) 30 mg PO Q6 [facility] Last Admin: 11/25/17 05:33 Dose: Not Given Polyethylene Glycol (Miralax) 17 gm PO BID PRN PRN Reason: Constipation Last Admin: 11/25/17 10:57 Dose: 17 gm Propranolol HCl (Inderal) 20 mg PO TID [facility] Last Admin: 11/25/17 11:00 Dose: 20 mg Quetiapine Fumarate (Seroquel) 12.5 mg PO [facility] PRN; Protocol PRN Reason: disorganized thoughts/psychosi - Labs Labs: 11/25/17 06:30 11/25/17 06:30 - Constitutional Appears: No Acute Distress - Head Exam Head Exam: ATRAUMATIC - Eye Exam Eye Exam: EOMI, Normal appearance, PERRL - ENT Exam ENT Exam: Mucous Membranes Moist, Normal Exam - Neck Exam Neck Exam: Full ROM, Normal Inspection. absent: Lymphadenopathy - Respiratory Exam Respiratory Exam: Clear to Ausculation Bilateral, NORMAL BREATHING PATTERN. absent: Rhonchi, Wheezes, Respiratory Distress - Cardiovascular Exam Cardiovascular Exam: REGULAR RHYTHM, +S1, +S2. absent: Murmur - GI/Abdominal Exam GI & Abdominal Exam: Soft, Normal Bowel Sounds. absent: Tenderness - Extremities Exam Extremities Exam: Full ROM, Normal Capillary Refill. absent: Joint Swelling, Pedal Edema - Neurological Exam Neurological Exam: Alert, Awake, Oriented x3 Neuro motor strength exam: Left Upper Extremity: 5, Right Upper Extremity: 5, Left Lower Extremity: 4, Right Lower Extremity: 4 - Psychiatric Exam Psychiatric exam: Normal Mood. absent: Agitated - Skin Skin Exam: Dry, Intact, Normal Color, Warm Assessment and Plan - Assessment and Plan (Free Text) Assessment: Patient is a 37 year old male with a PMHx of cervical radiculopathy w/ herniated disc, cervical spondylosis w/ myelopathy, thoracic spondylosis and depression under hospital management for acute delirium. Admitted for delirium 2 /2 to chronic opiate usage, which has resolved and he is now at baseline mental status. Patient has spiked fevers during hospital course possibly due to R-hand phlebitis versus hyperthyroidism. Also, patient has mod-severe muscle atrophy due to prolonged hospital stay, requiring physical therapy. Plan: Fevers Possibly due to R-hand Phlebitis vs Hyperthyroidism -Last fever on 11/24: Temp 100.8 -Informed nursing staff (as per ID recommendations) to obtain Blood Cx, UCx, Sputum Cx, CXR, and prolactin for any fever at 100.4 or greater -R-hand phlebitis was noted on physical exam, may be possible source of fevers -Spoke to ID, fevers may also be associated with patients hyperthyroidism -Peripheral line was removed. Patient is on PO meds. -Brain MRI: no evidence of herpes encephalitis -CT Chest/Abd/Pelvis (11/16): no acute findings -Blood Cx negative x2, UA negative, UCx negative Muscle Atrophy 2/2 Immobility and Multiple Spinal Surgeries - Lower extremity weakness; c/w PT to get patient out of bed - Patient's mother (Sophie) was not present for PT sessions this morning. Will follow up to see if she is present tomorrow. - Consider family meeting with patient's mother - Physical Therapy was re-consulted. Acute Delerium 2/2 Chronic Opiate Use - improved -Psych re-consulted, recs appreciated. Plan is to c/w current management. History is not consistent with depression. -AAOx3 on exam (baseline mental status) -Patient refused lumbar puncture. As per neuro, patient may not need LP since he has low suspicion for meningitis. -c/w Percocet q6 prn for pain control -AMS likely 2/2 opiates, benzos which have extended half life. -Hx of chronic back pain with multiple cervical/thoracic laminectomies with extermination supervisor opiate use -Neuro signed off case. Recs appreciated. Transaminitis - improving -AST/ALT is 30/ -CT Chest/Abd/Pelvis (11/16): no acute intra-abdominal or intra-thoracic findings. Disc degeneration with large osteophytes throughout spine. Hyperthyroidism -c/w propranolol and methimazole -Endocrine recs appreciated. -T4 17, TSH .09 on repeat labs (prior T4/TSH was 12.7/.22) HTN -BP normotensive -c/w zestril, propanolol and amlodipine DVT ppx: Lovenox GI ppx: pepcid Dispo: continue to monitor patient on the floor. Continue with Physical Therapy. Consider family meeting with patient's mother. Case was discussed and reviewed with Dr. Greer. <Jomar Greer - Last Filed: 11/26/17 14:38> Objective - Vital Signs/Intake and Output Vital Signs (last 24 hours): Temp Pulse Resp BP Pulse Ox 98.4 F 116 H 20 124/61 97 11/25/17 22:09 11/26/17 11:01 11/25/17 22:00 11/26/17 11:02 11/25/17 22:00 Intake and Output: 11/26/17 11/26/17 06:59 18:59 Intake Total 240 Balance 240 - Medications Medications: Current Medications Acetaminophen (Tylenol 325mg Tab) 650 mg PO Q4H PRN PRN Reason: Fever >100.4 F Last Admin: 11/25/17 21:09 Dose: 650 mg Amlodipine Besylate (Norvasc) 10 mg PO DAILY [facility] Last Admin: 11/26/17 11:02 Dose: 10 mg Docusate Sodium (Colace) 100 mg PO TID [facility] Last Admin: 11/26/17 10:54 Dose: 100 mg Enoxaparin Sodium (Lovenox) 40 mg SC DAILY [facility] PRN Reason: Protocol Last Admin: 11/26/17 10:52 Dose: 40 mg Famotidine (Pepcid) 20 mg PO 1000 [facility] Last Admin: 11/26/17 10:53 Dose: 20 mg Haloperidol Lactate (Haldol) 4 mg IM Q6 PRN; Protocol PRN Reason: Agitation Meropenem (Merrem Iv 1 Gm Premix) 50 mls @ 100 mls/hr IVPB Q8 [facility] PRN Reason: Protocol Last Admin: 11/26/17 13:56 Dose: 100 mls/hr Vancomycin HCl (Vancomycin 1gm) 1 gm in 250 mls @ 167 mls/hr IVPB Q12H [facility] PRN Reason: Protocol Last Admin: 11/26/17 11:03 Dose: 167 mls/hr Ibuprofen (Motrin Tab) 400 mg PO Q6H PRN PRN Reason: Pain, moderate (4-7) Last Admin: 11/19/17 04:58 Dose: 400 mg Lisinopril (Zestril) 20 mg PO BID [facility] Last Admin: 11/26/17 11:01 Dose: 20 mg Lorazepam (Ativan) 1 mg PO Q6H PRN; Protocol PRN Reason: Agitation Last Admin: 11/21/17 16:06 Dose: 1 mg Lorazepam (Ativan) 1 mg PO Q12 [facility] PRN Reason: Protocol Last Admin: 11/26/17 10:53 Dose: 1 mg Methimazole (Tapazole) 10 mg PO TID [facility] Last Admin: 11/26/17 10:54 Dose: 10 mg Nystatin (Nystop Topical Powder) 0 gm TOP BID [facility] Last Admin: 11/26/17 11:07 Dose: 1 applic Oxycodone HCl (Oxycodone Immediate Release Tab) 30 mg PO Q6 [facility] Last Admin: 11/26/17 13:54 Dose: 30 mg Polyethylene Glycol (Miralax) 17 gm PO BID PRN PRN Reason: Constipation Last Admin: 11/26/17 10:51 Dose: 17 gm Propranolol HCl (Inderal) 20 mg PO TID [facility] Last Admin: 11/26/17 11:01 Dose: 20 mg Risperidone (Risperdal Tab) 0.5 mg PO BID [facility] PRN Reason: Protocol Last Admin: 11/26/17 10:53 Dose: 0.5 mg Risperidone (Risperdal Tab) 0.5 mg PO HS [facility] PRN Reason: Protocol Last Admin: 11/25/17 23:14 Dose: 0.5 mg - Labs Labs: 11/26/17 06:00 11/26/17 06:00 Attending/Attestation - Attestation I have personally seen and examined this patient.: Yes I have fully participated in the care of the patient.: Yes I have reviewed all pertinent clinical information, including history, physical exam and plan: Yes Notes (Text): 11/26/17 14:34 attending note; Patient seen and examined with resident. Patient is alert and awake. Nursing staff stated that episodes of confusion. Tolerating diet. No diarrhea noted. Low-grade temperature yesterday. Currently fever free. Patient is a 37 year old male with past medical history that is significant for cervical radiculopathy with herniated disc, cervical spondylosis with myelopathy , thoracic spondylosis, and depression that presented to the emergency room with visual hallucinations. 1. Fever; resolved. secondary to right hand phlebitis. Improved significantly. patient is more alert and awake. Oriented to place and time. Right upper extremity ultrasound is negative for DVT. Currently patient has no peripheral IV. Currently off antibiotics. Blood, urine culture is negative. Chest xray with no active disease. CT chest/ abd/pelvisshows no acute intra-abdominal or intrathoracic findings; disc degeneration with large osteophytes projecting posteriorly throughout the spine ; the largest osteophyte is seen in the lower cervical spine. MRI brain shows unremarkable pre-and postcontrast enhanced MRI of the brain; no evidence of herpes encephalitis. Fever and maybe possibly due to hypothyroidism. Monitor for fevers. We will do pancultures if patient spikes again. 2. Acute delirium. Likely secondary to chronic opioid use and polypharmacy. Continues to improve with restarting of oxycodone. psychiatric evaluation appreciated. Episodes of delirium. 3. Leukocytosis. resolved. CT chest/abdomen/pelvis is negative. 4. Hyperthyroidism. Endocrinology following, recommendations appreciated. Continue propranolol and methimazole. 5. Essential hypertension. Continue lisinopril, Norvasc, and propanolol. Case discussed with rehabilitation caseworker in detail. Patient has no benefits for subacute rehabilitation placement. Case discussed in detail with the patient regarding current diagnosis and treatment plan. 11/26/17 14:37
[2017-11-25] MEDS: Nystatin 100,000 Units/gm Topical Pow(15 gm) TOP SCH ×2 (15:14→18:27)
--- NOTE | 2017-11-25 17:43 | CP.PCM.PCO ---
Addendum Addendum: 11/25/17 17:42 GIOVANNI Santiago approached this sba underwriter, reported pt had episode that pt was catching something in the air, visual hallucinations are most of the times related to the delirium. risperdal po started
[2017-11-25] MEDS: Meropenem IV 1 gm in NS 50 ML IVPB SCH (23:12)
[2017-11-25] MEDS: Vancomycin 1gm in NS 250ml 1 GM/250 ML BAG IVPB SCH (23:13)
[2017-11-26] MEDS: oxyCODONE 30 mg Immediate Release Tab PO SCH ×4 (00:01→18:25)
[2017-11-26 07:16] LABS: HEMOGLOBIN 11.2 g/dL (14.0-18.0); MEAN CELL VOLUME 87.9 fl (80.0-105.0); MEAN CORPUSCULAR HEMOGLOBIN 28.3 pg (25.0-35.0); MEAN CORPUSCULAR HGB CONC 32.2 g/dl (31.0-37.0); MEAN PLATELET VOLUME 8.9 fl (7.0-11.0); RBC 3.96 10^6/uL (3.5-6.1); RED CELL DISTRIBUTION WIDTH 14.7 % (11.5-14.5); WHITE BLOOD COUNT 11.7 10^3/ul (4.5-11.0)
[2017-11-26 07:34] LABS: ALB/GLOB RATIO 0.9 (1.1-1.8); ALBUMIN 3.6 g/dL (3.0-4.8); ALT/SGPT 91 U/L (7-56); AST/SGOT 32 U/L (17-59); BLOOD UREA NITROGEN 16 mg/dL (7-21); CALCIUM 9.5 mg/dL (8.4-10.5); GFR NON-AFRICAN AMERICAN > 60
[2017-11-26 09:49] LABS: URINE BILIRUBIN NEGATIVE (NEGATIVE); URINE BLOOD NEGATIVE (NEGATIVE); URINE GLUCOSE (UA) NEGATIVE (NEGATIVE); URINE LEUKOCYTE ESTERASE NEGATIVE Leu/uL (NEGATIVE); URINE PROTEIN TRACE mg/dL (<30 mg/dL)
[2017-11-26 09:53] LABS: URINE APPEARANCE CLEAR (CLEAR); URINE COLOR YELLOW (YELLOW)
[2017-11-26 09:56] LABS: URINE EPITHELIAL CELLS 0 - 2 /hpf (0-5); URINE RBC 0 - 2 /hpf (0-2); URINE WBC 0 - 2 /hpf (0-6)
[2017-11-26] MEDS: POLYETHYLENE GLYCOL 3350 17 GM/Dose PACKET PO PRN (10:51)
[2017-11-26] MEDS: Enoxaparin 40 mg Syringe SC SCH (10:52)
[2017-11-26] MEDS: methIMAzole 5 MG TAB PO SCH ×3 (10:54→18:21)
[2017-11-26] MEDS: Vancomycin 1gm in NS 250ml 1 GM/250 ML BAG IVPB SCH ×2 (11:03→22:46)
[2017-11-26] MEDS: Nystatin 100,000 Units/gm Topical Pow(15 gm) TOP SCH ×2 (11:07→18:23)
--- NOTE | 2017-11-26 12:46 | CP.PCM.PN ---
<Alfonzo Mclean - Last Filed: 11/26/17 15:26> Subjective - Date & Time of Evaluation Date of Evaluation: 11/26/17 Time of Evaluation: 07:00 - Subjective Subjective: Alfonzo Mclean, PGY1 Medicine Progress Note for Dr. Greer Patient was seen and examined at bedside this morning. Last night patient had a temp of Tmax 103. It was documented and nursing staff obtained a septic workup. This morning patient was afebrile. Last night, nursing staff noted that patient may be having some visual hallucinations. Psych recommended starting risperdal. This morning during interview, patient is AAOx3 to person, place, and time. He is at his baseline mental status. Patient's mother was not present during time of interview. Patient denies cp, sob, abdominal pain, n/v/d. Patient still has weakness in his legs due to his muscle atrophy and was encouraged to continue participating with physical therapy. A full 12 point ROS was conducted and unremarkable except as stated above. Objective - Vital Signs/Intake and Output Vital Signs (last 24 hours): Temp Pulse Resp BP Pulse Ox 98.4 F 116 H 20 124/61 97 11/25/17 22:09 11/26/17 11:01 11/25/17 22:00 11/26/17 11:02 11/25/17 22:00 Intake and Output: 11/26/17 11/26/17 06:59 18:59 Intake Total 240 Balance 240 - Medications Medications: Current Medications Acetaminophen (Tylenol 325mg Tab) 650 mg PO Q4H PRN PRN Reason: Fever >100.4 F Last Admin: 11/25/17 21:09 Dose: 650 mg Amlodipine Besylate (Norvasc) 10 mg PO DAILY [facility] Last Admin: 11/26/17 11:02 Dose: 10 mg Docusate Sodium (Colace) 100 mg PO TID [facility] Last Admin: 11/26/17 10:54 Dose: 100 mg Enoxaparin Sodium (Lovenox) 40 mg SC DAILY [facility] PRN Reason: Protocol Last Admin: 11/26/17 10:52 Dose: 40 mg Famotidine (Pepcid) 20 mg PO 1000 [facility] Last Admin: 11/26/17 10:53 Dose: 20 mg Haloperidol Lactate (Haldol) 4 mg IM Q6 PRN; Protocol PRN Reason: Agitation Meropenem (Merrem Iv 1 Gm Premix) 50 mls @ 100 mls/hr IVPB Q8 [facility] PRN Reason: Protocol Last Admin: 11/25/17 23:12 Dose: 100 mls/hr Vancomycin HCl (Vancomycin 1gm) 1 gm in 250 mls @ 167 mls/hr IVPB Q12H [facility] PRN Reason: Protocol Last Admin: 11/26/17 11:03 Dose: 167 mls/hr Ibuprofen (Motrin Tab) 400 mg PO Q6H PRN PRN Reason: Pain, moderate (4-7) Last Admin: 11/19/17 04:58 Dose: 400 mg Lisinopril (Zestril) 20 mg PO BID [facility] Last Admin: 11/26/17 11:01 Dose: 20 mg Lorazepam (Ativan) 1 mg PO Q6H PRN; Protocol PRN Reason: Agitation Last Admin: 11/21/17 16:06 Dose: 1 mg Lorazepam (Ativan) 1 mg PO Q12 [facility] PRN Reason: Protocol Last Admin: 11/26/17 10:53 Dose: 1 mg Methimazole (Tapazole) 10 mg PO TID [facility] Last Admin: 11/26/17 10:54 Dose: 10 mg Nystatin (Nystop Topical Powder) 0 gm TOP BID [facility] Last Admin: 11/26/17 11:07 Dose: 1 applic Oxycodone HCl (Oxycodone Immediate Release Tab) 30 mg PO Q6 [facility] Last Admin: 11/26/17 06:00 Dose: 30 mg Polyethylene Glycol (Miralax) 17 gm PO BID PRN PRN Reason: Constipation Last Admin: 11/26/17 10:51 Dose: 17 gm Propranolol HCl (Inderal) 20 mg PO TID [facility] Last Admin: 11/26/17 11:01 Dose: 20 mg Risperidone (Risperdal Tab) 0.5 mg PO BID [facility] PRN Reason: Protocol Last Admin: 11/26/17 10:53 Dose: 0.5 mg Risperidone (Risperdal Tab) 0.5 mg PO HS [facility] PRN Reason: Protocol Last Admin: 11/25/17 23:14 Dose: 0.5 mg - Labs Labs: 11/26/17 06:00 11/26/17 06:00 - Constitutional Appears: No Acute Distress - Head Exam Head Exam: ATRAUMATIC, NORMAL INSPECTION, NORMOCEPHALIC - Eye Exam Eye Exam: EOMI, Normal appearance, PERRL - ENT Exam ENT Exam: Mucous Membranes Moist, Normal Exam, TM's Normal Bilaterally Additional comments: No drainage noted from ears. - Neck Exam Neck Exam: Full ROM, Normal Inspection. absent: Lymphadenopathy - Respiratory Exam Respiratory Exam: Clear to Ausculation Bilateral, NORMAL BREATHING PATTERN. absent: Decreased Breath Sounds, Rales, Rhonchi, Wheezes, Respiratory Distress - Cardiovascular Exam Cardiovascular Exam: REGULAR RHYTHM, +S1, +S2. absent: Murmur - GI/Abdominal Exam GI & Abdominal Exam: Soft, Normal Bowel Sounds. absent: Tenderness - Extremities Exam Extremities Exam: Full ROM, Normal Capillary Refill, Normal Inspection. absent : Joint Swelling, Pedal Edema - Back Exam Back Exam: NORMAL INSPECTION - Neurological Exam Neurological Exam: Alert, Awake, Oriented x3 Neuro motor strength exam: Left Upper Extremity: 5, Right Upper Extremity: 5, Left Lower Extremity: 4, Right Lower Extremity: 4 - Psychiatric Exam Psychiatric exam: Normal Affect, Normal Mood - Skin Skin Exam: Dry, Intact, Normal Color, Warm Assessment and Plan - Assessment and Plan (Free Text) Assessment: Patient is a 37 year old male with a PMHx of cervical radiculopathy w/ herniated disc, cervical spondylosis w/ myelopathy, thoracic spondylosis and depression under hospital management for acute delirium. Admitted for delirium 2 /2 to chronic opiate usage, which has resolved and he is now at baseline mental status. Patient has spiked fevers during hospital course possibly due to R-hand phlebitis versus hyperthyroidism. Also, patient has mod-severe muscle atrophy due to prolonged hospital stay, requiring physical therapy. Plan: Fevers Possibly due to R-hand Phlebitis vs Hyperthyroidism -Last fever on 11/25: Temp 103. Afebrile this morning. -ID started patient on gilma and vanco -Please f/u Blood Cx, UCx, Sputum Cx, CXR, and prolactin for any fever at 100.4 or greater. Nursing staff made aware. -Brain MR (913): no evidence of herpes encephalitis -CT Chest/Abd/Pelvis (11/16): no acute findings -Blood Cx negative x2, UA negative, UCx negative Muscle Atrophy 2/2 Immobility and Multiple Spinal Surgeries - c/w PT - Patient is making progress but but still has weakness - Consider family meeting with patient's mother and to encourage patient to ambulate and participate with PT Acute Delerium 2/2 Chronic Opiate Use - improved -AAOx3 on exam (baseline mental status) -As per psych, not consistent with depression. Risperdal started by psych. -Patient refused lumbar puncture. As per neuro, patient may not need LP. Due to multiple spinal surgeries, LP may also be difficult. -c/w Percocet q6 prn for pain control -AMS likely 2/2 opiates, benzos which have extended half life. -Hx of chronic back pain with multiple cervical/thoracic laminectomies with assisted opiate use -Neuro signed off case. Recs appreciated. Hyperthyroidism -c/w propranolol and methimazole -Endocrine recs appreciated. -T4 11.9, TSH 0.42 Transaminitis - improving -AST/ALT is 32/91 HTN -BP normotensive -c/w zestril, propanolol and amlodipine DVT ppx: Lovenox GI ppx: pepcid Dispo: continue to monitor patient on the floor. Continue with Physical Therapy. Consider family meeting with patient's mother. Case was discussed and reviewed with Dr. Greer. <Jomar Greer - Last Filed: 11/27/17 17:39> Objective - Vital Signs/Intake and Output Vital Signs (last 24 hours): Temp Pulse Resp BP Pulse Ox 98.6 F 91 H 16 105/72 95 11/27/17 15:47 11/27/17 15:47 11/27/17 15:47 11/27/17 15:47 11/27/17 15:47 Intake and Output: 11/27/17 11/27/17 06:59 18:59 Intake Total 480 100 Output Total 0 Balance 480 100 - Medications Medications: Current Medications Acetaminophen (Tylenol 325mg Tab) 650 mg PO Q4H PRN PRN Reason: Fever >100.4 F Last Admin: 11/25/17 21:09 Dose: 650 mg Amlodipine Besylate (Norvasc) 10 mg PO DAILY [facility] Last Admin: 11/26/17 11:02 Dose: 10 mg Docusate Sodium (Colace) 100 mg PO TID [facility] Last Admin: 11/27/17 15:11 Dose: 100 mg Enoxaparin Sodium (Lovenox) 40 mg SC DAILY [facility] PRN Reason: Protocol Last Admin: 11/27/17 11:25 Dose: 40 mg Famotidine (Pepcid) 20 mg PO 1000 [facility] Last Admin: 11/27/17 11:29 Dose: 20 mg Meropenem (Merrem Iv 1 Gm Premix) 50 mls @ 100 mls/hr IVPB Q8 [facility] PRN Reason: Protocol Last Admin: 11/27/17 15:10 Dose: 100 mls/hr Vancomycin HCl (Vancomycin 1gm) 1 gm in 250 mls @ 167 mls/hr IVPB Q12H [facility] PRN Reason: Protocol Last Admin: 11/27/17 11:25 Dose: 167 mls/hr Ibuprofen (Motrin Tab) 400 mg PO Q6H PRN PRN Reason: Pain, moderate (4-7) Last Admin: 11/19/17 04:58 Dose: 400 mg Lisinopril (Zestril) 20 mg PO BID [facility] Last Admin: 11/26/17 18:22 Dose: 20 mg Lorazepam (Ativan) 1 mg PO Q6H PRN; Protocol PRN Reason: Agitation Last Admin: 11/21/17 16:06 Dose: 1 mg Methimazole (Tapazole) 10 mg PO DAILY [facility] Last Admin: 11/27/17 11:27 Dose: 10 mg Nystatin (Nystop Topical Powder) 0 gm TOP BID [facility] Last Admin: 11/27/17 11:30 Dose: 1 applic Oxycodone HCl (Oxycodone Immediate Release Tab) 30 mg PO Q6 PRN PRN Reason: Pain, severe (8-10) Last Admin: 11/27/17 11:31 Dose: 30 mg Polyethylene Glycol (Miralax) 17 gm PO BID PRN PRN Reason: Constipation Last Admin: 11/26/17 10:51 Dose: 17 gm Propranolol HCl (Inderal) 20 mg PO TID [facility] Last Admin: 11/27/17 15:11 Dose: 20 mg Risperidone (Risperdal Tab) 0.5 mg PO BID [facility] PRN Reason: Protocol Last Admin: 11/27/17 11:27 Dose: 0.5 mg Risperidone (Risperdal Tab) 0.5 mg PO HS [facility] PRN Reason: Protocol Last Admin: 11/26/17 21:35 Dose: 0.5 mg - Labs Labs: 11/27/17 06:00 11/27/17 06:00 Attending/Attestation - Attestation I have personally seen and examined this patient.: Yes I have fully participated in the care of the patient.: Yes I have reviewed all pertinent clinical information, including history, physical exam and plan: Yes Notes (Text): 11/27/17 17:36 attending note; Patient seen and examined with resident. Patient is alert and awake. able to answer questions correctly. Complaining of left lower extremity pain. Patient had MAXIMUM TEMPERATURE of 103 last night .Currently fever free. Patient is a 37 year old male with past medical history that is significant for cervical radiculopathy with herniated disc, cervical spondylosis with myelopathy , thoracic spondylosis, and depression that presented to the emergency room with visual hallucinations. 1. Fever; resolved. secondary to right hand phlebitis. Improved significantly. patient is more alert and awake. Oriented to place and time. Right upper extremity ultrasound is negative for DVT. Started on IV vancomycin and meropenem. ID evaluation appreciated. Repeat chest x-ray negative. Repeat blood culture, urine culture, sputum culture negative. Fever and maybe possibly due to hyperthyroidism/ Drug fever. 2. Acute delirium. resolving. Likely secondary to chronic opioid use and polypharmacy. Continues to improve with restarting of oxycodone. psychiatric evaluation appreciated. 3. Hyperthyroidism. Endocrinology following, recommendations appreciated. Continue propranolol and methimazole. 4. Essential hypertension. Continue lisinopril, Norvasc, and propanolol. Case discussed in detail with the patient regarding current diagnosis and treatment plan. 11/27/17 17:37 11/27/17 17:38
--- NOTE | 2017-11-26 13:00 | RAD ---
Date of service: 11/25/2017 HISTORY: rule out pneumonia COMPARISON: 11/13/2017 FINDINGS: LUNGS: No active pulmonary disease. PLEURA: No significant pleural effusion identified, no pneumothorax apparent. CARDIOVASCULAR: Normal. OSSEOUS STRUCTURES: No significant abnormalities. VISUALIZED UPPER ABDOMEN: Normal. OTHER FINDINGS: None. IMPRESSION: No active disease.
[2017-11-26] MEDS: Meropenem IV 1 gm in NS 50 ML IVPB SCH ×3 (13:56→22:55)
--- NOTE | 2017-11-26 14:48 | PN ---
DATE: 11/26/2017 SUBJECTIVE: The patient is in bed in no acute distress, nontoxic. PHYSICAL EXAMINATION: VITAL SIGNS: Temperature is 98, blood pressure is 120/60, respiratory rate of 18. HEENT: Examination is unremarkable. NECK: Supple. HEART: Normal S1, S2. LUNGS: Have decreased breath sounds. ABDOMEN: Soft. DATA: Laboratory examination reveals a white count of 11,700, hemoglobin of 11. Chemistry reveals a BUN of 16, creatinine of 0.5. Urinalysis is noted and serology is negative. Microbiology is reviewed. ASSESSMENT AND PLAN: This is a 37-year-old male seen earlier in 3, bed 2 with cervical adenopathy, herniated disk, cervical spondylosis, myelopathy, currently with temperature of 103, tachycardia with SIRS, systemic inflammatory response syndrome, repeat culture is pending with meropenem day #2 and vancomycin day #2. This patient has never had a spinal tap. Arias Aviles MD
--- NOTE | 2017-11-26 17:07 | PN ---
DATE: 11/26/2017 SUBJECTIVE: Yesterday, the patient had spike of fever 103. The patient was very confused, had visual hallucinations. This advertising copywriter advised to have delirium workup. Discussed with attending Dr. Greer. This advertising copywriter initiated Risperdal yesterday. The patient was followed up today. Patient presented more alert, was able to hold conversation for few minutes and after that, the patient had fallen asleep, but there is some improvement to compare with yesterday. As per nursing report, the patient was having waxing and waning presentation most likely which correlates with diagnosis of delirium. VITAL SIGNS: Reviewed today is temperature 98.4, pulse is 116, blood pressure 124/61. MEDICATIONS: Reviewed. Tylenol, Norvasc, Colace, Lovenox, Pepcid, Haldol as needed. The patient did not get any of the Haldol. The patient is on Motrin, lisinopril, Ativan, meropenem, methimazole. nystatin, oxycodone, MiraLax, Inderal, Risperdal 25 mg twice a day and 0.5 mg at the nighttime and vancomycin. LABORATORY DTA: Reviewed. Most recent was from today. WBC cells 1.7. Chemistry reviewed. Labs reviewed. MENTAL STATUS EXAMINATION: The patient presents with waxing and waning mental status, intermittent eye contact. Speech was incoherent at times. The patient knows that he is in the hospital, but does not know what is the name of the hospital. The patient at times confabulates. Mood described not bad. Affect was constricted. Thought process concrete, at times circumstantial. Thought content, the patient has episodes of hallucinations, which majority of time is visual, when this advertising copywriter asked what hallucinations he has, the patient replied "stupid shit". The patient was not able to elaborate further. Insight and judgment limited. Impulses are unpredictable. IMPRESSION: Delirium stage. This advertising copywriter is not sure about the etiology. The patient has chronic back pain, history of being on multiple pain medications as well as psychotropic medications for depression. PLAN: Continue current management. Continue current medications. Delirium workup was suggested, but it is up to the medical team. We will follow up on this patient every other day. This advertising copywriter initiated Risperdal for the patient, will continue that. Should you have any questions, give me a call back. Thank you very much. Taylor Issa MD
[2017-11-27] MEDS: oxyCODONE 30 mg Immediate Release Tab PO SCH ×2 (00:03→05:37)
[2017-11-27] MEDS ORDERED: Metoprolol 1 mg/ml Inj IVP ONE (00:58)
[2017-11-27] MEDS: Meropenem IV 1 gm in NS 50 ML IVPB SCH ×3 (05:38→21:52)
[2017-11-27 06:54] LABS: HEMOGLOBIN 10.2 g/dL (14.0-18.0); MEAN CELL VOLUME 88.8 fl (80.0-105.0); MEAN CORPUSCULAR HEMOGLOBIN 27.8 pg (25.0-35.0); MEAN CORPUSCULAR HGB CONC 31.3 g/dl (31.0-37.0); MEAN PLATELET VOLUME 8.8 fl (7.0-11.0); RBC 3.67 10^6/uL (3.5-6.1); RED CELL DISTRIBUTION WIDTH 14.9 % (11.5-14.5); WHITE BLOOD COUNT 7.9 10^3/ul (4.5-11.0)
[2017-11-27 07:17] LABS: ALB/GLOB RATIO 0.9 (1.1-1.8); ALBUMIN 3.1 g/dL (3.0-4.8); ALT/SGPT 79 U/L (7-56); AST/SGOT 31 U/L (17-59); BLOOD UREA NITROGEN 11 mg/dL (7-21); CALCIUM 8.9 mg/dL (8.4-10.5); GFR NON-AFRICAN AMERICAN > 60
[2017-11-27] MEDS: Enoxaparin 40 mg Syringe SC SCH (11:25)
[2017-11-27] MEDS: Vancomycin 1gm in NS 250ml 1 GM/250 ML BAG IVPB SCH ×2 (11:25→22:51)
[2017-11-27] MEDS: methIMAzole 5 MG TAB PO SCH (11:27)
[2017-11-27] MEDS: Nystatin 100,000 Units/gm Topical Pow(15 gm) TOP SCH ×2 (11:30→18:15)
[2017-11-27] MEDS: oxyCODONE 30 mg Immediate Release Tab PO PRN ×2 (11:31→21:57)
--- NOTE | 2017-11-27 12:48 | CP.PCM.PN ---
<Alfonzo Mclean - Last Filed: 11/27/17 12:38> Subjective - Date & Time of Evaluation Date of Evaluation: 11/27/17 Time of Evaluation: 08:00 - Subjective Subjective: Alfonzo Mclean PGY1 Medicine Progress Note for Dr. Greer Patient was seen and examined at bedside this morning. No fevers overnight. Last night, patient was having difficulty voiding (383 cc residual volume on bladder scan) and nursing staff was told to straight cath; however, patient's mother was present at the time and encouraged the patient to successfully void. Yesterday afternoon, patient's blood pressure was also lower than usual (SBP 90s ), however, BP normalized afterwards. Today, vital signs are stable. Patient is at baseline mental status. Denies cp, sob, abdominal pain, n/v/d, dysuria. A full 12 point ROS was conducted and unremarkable except as stated above. Objective - Vital Signs/Intake and Output Vital Signs (last 24 hours): Temp Pulse Resp BP Pulse Ox 98.8 F 111 H 18 116/74 97 11/27/17 08:02 11/27/17 11:26 11/27/17 08:02 11/27/17 11:26 11/27/17 08:02 Intake and Output: 11/27/17 11/27/17 06:59 18:59 Intake Total 480 0 Output Total 0 Balance 480 0 - Medications Medications: Current Medications Acetaminophen (Tylenol 325mg Tab) 650 mg PO Q4H PRN PRN Reason: Fever >100.4 F Last Admin: 11/25/17 21:09 Dose: 650 mg Amlodipine Besylate (Norvasc) 10 mg PO DAILY [facility] Last Admin: 11/26/17 11:02 Dose: 10 mg Docusate Sodium (Colace) 100 mg PO TID [facility] Last Admin: 11/27/17 11:26 Dose: 100 mg Enoxaparin Sodium (Lovenox) 40 mg SC DAILY [facility] PRN Reason: Protocol Last Admin: 11/27/17 11:25 Dose: 40 mg Famotidine (Pepcid) 20 mg PO 1000 [facility] Last Admin: 11/27/17 11:29 Dose: 20 mg Haloperidol Lactate (Haldol) 4 mg IM Q6 PRN; Protocol PRN Reason: Agitation Meropenem (Merrem Iv 1 Gm Premix) 50 mls @ 100 mls/hr IVPB Q8 [facility] PRN Reason: Protocol Last Admin: 11/27/17 05:38 Dose: 100 mls/hr Vancomycin HCl (Vancomycin 1gm) 1 gm in 250 mls @ 167 mls/hr IVPB Q12H [facility] PRN Reason: Protocol Last Admin: 11/27/17 11:25 Dose: 167 mls/hr Ibuprofen (Motrin Tab) 400 mg PO Q6H PRN PRN Reason: Pain, moderate (4-7) Last Admin: 11/19/17 04:58 Dose: 400 mg Lisinopril (Zestril) 20 mg PO BID [facility] Last Admin: 11/26/17 18:22 Dose: 20 mg Lorazepam (Ativan) 1 mg PO Q6H PRN; Protocol PRN Reason: Agitation Last Admin: 11/21/17 16:06 Dose: 1 mg Methimazole (Tapazole) 10 mg PO DAILY [facility] Last Admin: 11/27/17 11:27 Dose: 10 mg Nystatin (Nystop Topical Powder) 0 gm TOP BID [facility] Last Admin: 11/27/17 11:30 Dose: 1 applic Oxycodone HCl (Oxycodone Immediate Release Tab) 30 mg PO Q6 PRN PRN Reason: Pain, severe (8-10) Last Admin: 11/27/17 11:31 Dose: 30 mg Polyethylene Glycol (Miralax) 17 gm PO BID PRN PRN Reason: Constipation Last Admin: 11/26/17 10:51 Dose: 17 gm Propranolol HCl (Inderal) 20 mg PO TID [facility] Last Admin: 11/27/17 11:26 Dose: 20 mg Risperidone (Risperdal Tab) 0.5 mg PO BID [facility] PRN Reason: Protocol Last Admin: 11/27/17 11:27 Dose: 0.5 mg Risperidone (Risperdal Tab) 0.5 mg PO HS [facility] PRN Reason: Protocol Last Admin: 11/26/17 21:35 Dose: 0.5 mg - Labs Labs: 11/27/17 06:00 11/27/17 06:00 - Constitutional Appears: No Acute Distress - Head Exam Head Exam: ATRAUMATIC, NORMAL INSPECTION, NORMOCEPHALIC - Eye Exam Eye Exam: EOMI, Normal appearance, PERRL Pupil Exam: NORMAL ACCOMODATION, PERRL - ENT Exam ENT Exam: Mucous Membranes Moist, Normal Exam - Neck Exam Neck Exam: Full ROM, Normal Inspection. absent: Lymphadenopathy - Respiratory Exam Respiratory Exam: Clear to Ausculation Bilateral, NORMAL BREATHING PATTERN. absent: Rales, Rhonchi, Wheezes - Cardiovascular Exam Cardiovascular Exam: REGULAR RHYTHM, +S1, +S2. absent: Murmur - GI/Abdominal Exam GI & Abdominal Exam: Soft, Tenderness (Mild tenderness to deep palpation of abdmen. Unchanged from prior exam. ), Normal Bowel Sounds. absent: Rigid - Extremities Exam Extremities Exam: Normal Capillary Refill. absent: Joint Swelling, Pedal Edema - Back Exam Back Exam: NORMAL INSPECTION - Neurological Exam Neurological Exam: Alert, Awake, Oriented x3 Neuro motor strength exam: Left Upper Extremity: 5, Right Upper Extremity: 5, Left Lower Extremity: 4, Right Lower Extremity: 4 - Psychiatric Exam Psychiatric exam: Normal Affect, Normal Mood - Skin Skin Exam: Dry, Intact, Normal Color, Warm Assessment and Plan - Assessment and Plan (Free Text) Assessment: Patient is a 37 year old male with a PMHx of cervical radiculopathy w/ herniated disc, cervical spondylosis w/ myelopathy, thoracic spondylosis and depression under hospital management for acute delirium. Admitted for delirium 2 /2 to chronic opiate usage, which has resolved and he is now at baseline mental status. Patient has spiked fevers during hospital course possibly due to R-hand phlebitis versus hyperthyroidism. Also, patient has mod-severe muscle atrophy due to prolonged hospital stay, requiring physical therapy. Plan: Fevers Possibly due to R-hand Phlebitis vs Hyperthyroidism -Currently afebrile (Last fever was on 11/25 with Tmax 103) -UCx negative; UA negative -Sputum Cx negative -Blood Cx negative x2 -RPR negative -Procal negative -c/w gilma and vanco -CXR (11/25): no active disease -ID consulted, recs appreciated. Muscle Atrophy 2/2 Immobility and Multiple Spinal Surgeries - c/w PT - Patient is making progress but but still has weakness - Consider family meeting with patient's mother and to encourage patient to ambulate and participate with PT Episode of Hypotension - asymptomatic; resolved -Currently normotensive -SBP noted to be in 90s; patient asymptomatic -Hold [facility] for now Acute Delerium 2/2 Chronic Opiate Use - improved -AAOx3 on exam (baseline mental status) -switched to oxycodone prn -As per psych, not consistent with depression. Risperdal started by psych. -Patient refused lumbar puncture. As per neuro, patient may not need LP. Due to multiple spinal surgeries, LP may also be difficult. -AMS likely 2/2 opiates, benzos which have extended half life. -Hx of chronic back pain with multiple cervical/thoracic laminectomies with fpc opiate use -Neuro signed off case. Recs appreciated. Hyperthyroidism -c/w propranolol and methimazole -Endocrine recs appreciated. -T4 11.9, TSH 0.42 Transaminitis - improving -AST/ALT is 31/79 (downtrending) DVT ppx: Lovenox GI ppx: pepcid Dispo: continue to monitor patient on the floor. Continue with Physical Therapy. Consider family meeting with patient's mother. Case was discussed and reviewed with Dr. Greer. <Jomar Greer - Last Filed: 11/27/17 17:40> Objective - Vital Signs/Intake and Output Vital Signs (last 24 hours): Temp Pulse Resp BP Pulse Ox 98.6 F 91 H 16 105/72 95 11/27/17 15:47 11/27/17 15:47 11/27/17 15:47 11/27/17 15:47 11/27/17 15:47 Intake and Output: 11/27/17 11/27/17 06:59 18:59 Intake Total 480 100 Output Total 0 Balance 480 100 - Medications Medications: Current Medications Acetaminophen (Tylenol 325mg Tab) 650 mg PO Q4H PRN PRN Reason: Fever >100.4 F Last Admin: 11/25/17 21:09 Dose: 650 mg Amlodipine Besylate (Norvasc) 10 mg PO DAILY [facility] Last Admin: 11/26/17 11:02 Dose: 10 mg Docusate Sodium (Colace) 100 mg PO TID [facility] Last Admin: 11/27/17 15:11 Dose: 100 mg Enoxaparin Sodium (Lovenox) 40 mg SC DAILY [facility] PRN Reason: Protocol Last Admin: 11/27/17 11:25 Dose: 40 mg Famotidine (Pepcid) 20 mg PO 1000 [facility] Last Admin: 11/27/17 11:29 Dose: 20 mg Meropenem (Merrem Iv 1 Gm Premix) 50 mls @ 100 mls/hr IVPB Q8 [facility] PRN Reason: Protocol Last Admin: 11/27/17 15:10 Dose: 100 mls/hr Vancomycin HCl (Vancomycin 1gm) 1 gm in 250 mls @ 167 mls/hr IVPB Q12H [facility] PRN Reason: Protocol Last Admin: 11/27/17 11:25 Dose: 167 mls/hr Ibuprofen (Motrin Tab) 400 mg PO Q6H PRN PRN Reason: Pain, moderate (4-7) Last Admin: 11/19/17 04:58 Dose: 400 mg Lisinopril (Zestril) 20 mg PO BID [facility] Last Admin: 11/26/17 18:22 Dose: 20 mg Lorazepam (Ativan) 1 mg PO Q6H PRN; Protocol PRN Reason: Agitation Last Admin: 11/21/17 16:06 Dose: 1 mg Methimazole (Tapazole) 10 mg PO DAILY [facility] Last Admin: 11/27/17 11:27 Dose: 10 mg Nystatin (Nystop Topical Powder) 0 gm TOP BID [facility] Last Admin: 11/27/17 11:30 Dose: 1 applic Oxycodone HCl (Oxycodone Immediate Release Tab) 30 mg PO Q6 PRN PRN Reason: Pain, severe (8-10) Last Admin: 11/27/17 11:31 Dose: 30 mg Polyethylene Glycol (Miralax) 17 gm PO BID PRN PRN Reason: Constipation Last Admin: 11/26/17 10:51 Dose: 17 gm Propranolol HCl (Inderal) 20 mg PO TID [facility] Last Admin: 11/27/17 15:11 Dose: 20 mg Risperidone (Risperdal Tab) 0.5 mg PO BID [facility] PRN Reason: Protocol Last Admin: 11/27/17 11:27 Dose: 0.5 mg Risperidone (Risperdal Tab) 0.5 mg PO HS [facility] PRN Reason: Protocol Last Admin: 11/26/17 21:35 Dose: 0.5 mg - Labs Labs: 11/27/17 06:00 11/27/17 06:00 Attending/Attestation - Attestation I have personally seen and examined this patient.: Yes I have fully participated in the care of the patient.: Yes I have reviewed all pertinent clinical information, including history, physical exam and plan: Yes Notes (Text): 11/27/17 17:40 attending note; Patient seen and examined with resident and ID attending. Patient is alert and awake. able to answer questions correctly. Patient is afebrile and nontoxic. Patient is a 37 year old male with past medical history that is significant for cervical radiculopathy with herniated disc, cervical spondylosis with myelopathy , thoracic spondylosis, and depression that presented to the emergency room with visual hallucinations. 1. Fever; resolved. secondary to right hand phlebitis. Improved significantly. patient is more alert and awake. Oriented to place and time. Right upper extremity ultrasound is negative for DVT. Started on IV vancomycin and meropenem. ID evaluation appreciated. Repeat chest x-ray negative. Repeat blood culture, urine culture, sputum culture negative. Fever and maybe possibly due to hyperthyroidism/ Drug fever. 2. Acute delirium. resolving. Likely secondary to chronic opioid use and polypharmacy. Continues to improve with restarting of oxycodone. psychiatric evaluation appreciated. 3. Hyperthyroidism. Endocrinology following, recommendations appreciated. Continue propranolol and methimazole. 4. Essential hypertension. Continue lisinopril, Norvasc, and propanolol. Will discuss with case packer and sealer for discharge planning. Case discussed in detail with the patient regarding current diagnosis and treatment plan.
--- NOTE | 2017-11-27 17:43 | PN ---
DATE: 11/27/2017 SUBJECTIVE: The patient seen early this morning. He is awake and alert. He appears to be at baseline. He did have a temperature of 103 on 11/25/2017. Currently, he has been afebrile. PHYSICAL EXAMINATION: VITAL SIGNS: On exam, temperature is 98, blood pressure is 106/70, respiratory rate of 18. HEENT: Examination of HEENT is unremarkable. NECK: Supple. LUNGS: Have decreased breath sounds. HEART: Normal S1, S2. ABDOMEN: Soft, nontender. LABORATORY DATA: Laboratory examination reveals a white count of 7.9, hemoglobin of 10, platelets of 274. The patient's chemistries are noted. T4 is 11.9. Urinalysis is noted and toxicology is noted. Serology is reviewed. Microbiology reveals the urine cultures negative. Sputum culture is negative. All blood cultures have been negative. Currently, the patient is on meropenem and vancomycin. note is reviewed from yesterday. Unable to open this morning's note. The patient has been in the hospital since 11/05/2017. ASSESSMENT AND PLAN: A 37-year-old male who had a long hospital stay with cervical adenopathy, herniated disk, cervical spondylitis, myelopathy, did have systemic inflammatory response syndrome, on day #3 of vancomycin and meropenem at this point. The patient by definition has fever of unknown origin and has since been had significant workup in the hospital over a week. Had CAT scans, which were negative. Spinal tap has not been done. Bone marrow has not been done. CAT scan of the chest is negative. CAT scan of the abdomen is negative. Drug fever is a possibility. We will also order an echocardiogram to rule out endocarditis, culture negative endocarditis, although no real clinical evidence other than the intermittent fever and if the fever persists, will need a bone marrow aspiration and cultures and spinal tap is although at this point most likely will be negative. We will order an echocardiogram in this patient with persistent fever intermittently and on and off since admission. A vasculitis workup should be done, sedimentation rate and C-reactive protein, procalcitonin and JACI screen. Case discussed with primary medical doctor this morning. Sedimentation rate, C-reactive protein, procalcitonin, JACI workup. Arias Aviles MD [facility] # [id number]
[2017-11-28] MEDS: oxyCODONE 30 mg Immediate Release Tab PO PRN ×3 (03:35→23:53)
[2017-11-28] MEDS: Meropenem IV 1 gm in NS 50 ML IVPB SCH ×3 (05:46→21:30)
[2017-11-28 07:02] LABS: HEMOGLOBIN 10.4 g/dL (14.0-18.0); MEAN CELL VOLUME 86.5 fl (80.0-105.0); MEAN CORPUSCULAR HGB CONC 32.4 g/dl (31.0-37.0); MEAN PLATELET VOLUME 8.8 fl (7.0-11.0); RBC 3.71 10^6/uL (3.5-6.1); RED CELL DISTRIBUTION WIDTH 14.2 % (11.5-14.5); WHITE BLOOD COUNT 9.8 10^3/ul (4.5-11.0)
[2017-11-28 07:16] LABS: ALB/GLOB RATIO 0.9 (1.1-1.8); ALBUMIN 3.4 g/dL (3.0-4.8); ALT/SGPT 91 U/L (7-56); AST/SGOT 37 U/L (17-59); BLOOD UREA NITROGEN 9 mg/dL (7-21); CALCIUM 8.8 mg/dL (8.4-10.5); GFR NON-AFRICAN AMERICAN > 60
[2017-11-28] MEDS ORDERED: Potassium Chloride 20 mEq ER Tab PO ONE (08:55)
[2017-11-28] MEDS: methIMAzole 5 MG TAB PO SCH (09:39)
[2017-11-28] MEDS: Enoxaparin 40 mg Syringe SC SCH (09:39)
[2017-11-28] MEDS: Vancomycin 1gm in NS 250ml 1 GM/250 ML BAG IVPB SCH ×2 (09:39→22:12)
[2017-11-28] MEDS: Nystatin 100,000 Units/gm Topical Pow(15 gm) TOP SCH ×2 (10:00→17:59)
--- NOTE | 2017-11-28 10:29 | CP.PCM.PN ---
<Shira Jara - Last Filed: 11/28/17 13:33> Subjective - Date & Time of Evaluation Date of Evaluation: 11/28/17 Time of Evaluation: 09:15 - Subjective Subjective: PGY-3 ID progress note for Dr Rosario No overnight acute events. Patient remains afebrile since 11/25/17. Patient appears disheveled. Denies nausea, vomiting or diarrhea. no fever or chills. Objective - Vital Signs/Intake and Output Vital Signs (last 24 hours): Temp Pulse Resp BP Pulse Ox 98.3 F 97 H 18 150/99 H 98 11/27/17 21:19 11/27/17 21:19 11/27/17 21:19 11/28/17 09:40 11/27/17 21:19 Intake and Output: 11/28/17 11/28/17 06:59 18:59 Intake Total 240 Balance 240 - Medications Medications: Current Medications Acetaminophen (Tylenol 325mg Tab) 650 mg PO Q4H PRN PRN Reason: Fever >100.4 F Last Admin: 11/25/17 21:09 Dose: 650 mg Amlodipine Besylate (Norvasc) 10 mg PO DAILY [facility] Last Admin: 11/26/17 11:02 Dose: 10 mg Docusate Sodium (Colace) 100 mg PO TID [facility] Last Admin: 11/28/17 09:39 Dose: 100 mg Enoxaparin Sodium (Lovenox) 40 mg SC DAILY [facility] PRN Reason: Protocol Last Admin: 11/28/17 09:39 Dose: 40 mg Famotidine (Pepcid) 20 mg PO 1000 [facility] Last Admin: 11/28/17 09:39 Dose: 20 mg Meropenem (Merrem Iv 1 Gm Premix) 50 mls @ 100 mls/hr IVPB Q8 [facility] PRN Reason: Protocol Last Admin: 11/28/17 05:46 Dose: 100 mls/hr Vancomycin HCl (Vancomycin 1gm) 1 gm in 250 mls @ 167 mls/hr IVPB Q12H [facility] PRN Reason: Protocol Last Admin: 11/28/17 09:39 Dose: 167 mls/hr Ibuprofen (Motrin Tab) 400 mg PO Q6H PRN PRN Reason: Pain, moderate (4-7) Last Admin: 11/19/17 04:58 Dose: 400 mg Lisinopril (Zestril) 20 mg PO BID [facility] Last Admin: 11/26/17 18:22 Dose: 20 mg Lorazepam (Ativan) 1 mg PO Q6H PRN; Protocol PRN Reason: Agitation Last Admin: 11/28/17 05:53 Dose: 1 mg Methimazole (Tapazole) 10 mg PO DAILY [facility] Last Admin: 11/28/17 09:39 Dose: 10 mg Nystatin (Nystop Topical Powder) 0 gm TOP BID [facility] Last Admin: 11/27/17 18:15 Dose: 1 applic Oxycodone HCl (Oxycodone Immediate Release Tab) 30 mg PO Q6 PRN PRN Reason: Pain, severe (8-10) Last Admin: 11/28/17 09:40 Dose: 30 mg Polyethylene Glycol (Miralax) 17 gm PO BID PRN PRN Reason: Constipation Last Admin: 11/26/17 10:51 Dose: 17 gm Propranolol HCl (Inderal) 20 mg PO TID [facility] Last Admin: 11/28/17 09:40 Dose: 20 mg Risperidone (Risperdal Tab) 0.5 mg PO BID [facility] PRN Reason: Protocol Last Admin: 11/28/17 09:40 Dose: 0.5 mg Risperidone (Risperdal Tab) 0.5 mg PO HS [facility] PRN Reason: Protocol Last Admin: 11/26/17 21:35 Dose: 0.5 mg - Labs Labs: 11/28/17 06:30 11/28/17 06:30 - Constitutional Appears: No Acute Distress, Older Than Stated Age - Head Exam Head Exam: NORMAL INSPECTION - Eye Exam Eye Exam: Normal appearance - ENT Exam ENT Exam: Mucous Membranes Moist - Respiratory Exam Respiratory Exam: Clear to Ausculation Bilateral, NORMAL BREATHING PATTERN. absent: Rales, Rhonchi, Wheezes, Respiratory Distress, Stridor - Cardiovascular Exam Cardiovascular Exam: REGULAR RHYTHM, RRR, +S1, +S2. absent: Murmur - GI/Abdominal Exam GI & Abdominal Exam: Soft, Normal Bowel Sounds. absent: Distended, Firm, Guarding, Rigid, Tenderness - Neurological Exam Neurological Exam: Awake, Oriented x3 - Psychiatric Exam Psychiatric exam: Depressed, Flat Affect - Skin Skin Exam: Diaphoretic, Warm Additional comments: + multiple scratches on the right forearm and right thigh Assessment and Plan - Assessment and Plan (Free Text) Assessment: 37 y/o with SIRS - possibly fever of unknown origin, sepsis was ruled out, no fever since Hyperthyroidism Delirium- resolved Depression Transaminitis Herniated disc cervical spondylosis Myelopathy Plan: On merrem day# 3. No leukocytosis, multiple blood cultures, and urine cultures with no growth with low procal, thus less likely bacterial infection. HIV negative, normal hep panel, and negative RPR. Echo ordered to rule out endocarditis. Autoimmune work up including lupus, and ANCA sent. MRI of the brain was done and ruled out herpes encephalitis CT chest abdomen and pelvis with no intra-abdominal infections or adenopathies noted. mental status improved, and no fever for almost 4 days. If fever returns, repeat septic work up, and perform lumbar puncture and bone bone biopsy. Continue medical and psych management as per primary and psych. Patient seen, examined and case discussed with Dr. Rosario. <Gonzalo Rosario - Last Filed: 11/28/17 22:31> Objective - Vital Signs/Intake and Output Vital Signs (last 24 hours): Temp Pulse Resp BP Pulse Ox 98.6 F 94 H 20 123/89 96 11/28/17 14:00 11/28/17 17:58 11/28/17 14:00 11/28/17 17:58 11/28/17 14:00 Intake and Output: 11/28/17 11/29/17 18:59 06:59 Intake Total 400 Output Total 0 Balance 400 - Medications Medications: Current Medications Amlodipine Besylate (Norvasc) 10 mg PO DAILY [facility] Last Admin: 11/26/17 11:02 Dose: 10 mg Docusate Sodium (Colace) 100 mg PO TID [facility] Last Admin: 11/28/17 17:58 Dose: 100 mg Enoxaparin Sodium (Lovenox) 40 mg SC DAILY [facility] PRN Reason: Protocol Last Admin: 11/28/17 09:39 Dose: 40 mg Famotidine (Pepcid) 20 mg PO 1000 [facility] Last Admin: 11/28/17 09:39 Dose: 20 mg Meropenem (Merrem Iv 1 Gm Premix) 50 mls @ 100 mls/hr IVPB Q8 [facility] PRN Reason: Protocol Last Admin: 11/28/17 21:30 Dose: 100 mls/hr Vancomycin HCl (Vancomycin 1gm) 1 gm in 250 mls @ 167 mls/hr IVPB Q12H [facility] PRN Reason: Protocol Last Admin: 11/28/17 22:12 Dose: 167 mls/hr Ibuprofen (Motrin Tab) 600 mg PO Q6H PRN PRN Reason: mild pain or fever >100.4 Lisinopril (Zestril) 20 mg PO BID [facility] Last Admin: 11/26/17 18:22 Dose: 20 mg Lorazepam (Ativan) 0.5 mg IVP BID PRN; Protocol PRN Reason: Agitation Methimazole (Tapazole) 10 mg PO DAILY [facility] Last Admin: 11/28/17 09:39 Dose: 10 mg Nystatin (Nystop Topical Powder) 0 gm TOP BID [facility] Last Admin: 11/28/17 17:59 Dose: 1 applic Oxycodone HCl (Oxycodone Immediate Release Tab) 30 mg PO Q6 PRN PRN Reason: Pain, severe (8-10) Last Admin: 11/28/17 09:40 Dose: 30 mg Polyethylene Glycol (Miralax) 17 gm PO BID PRN PRN Reason: Constipation Last Admin: 11/26/17 10:51 Dose: 17 gm Propranolol HCl (Inderal) 20 mg PO TID [facility] Last Admin: 11/28/17 17:58 Dose: 20 mg Risperidone (Risperdal Tab) 0.5 mg PO BID [facility] PRN Reason: Protocol Last Admin: 11/28/17 17:59 Dose: 0.5 mg Risperidone (Risperdal Tab) 0.5 mg PO HS [facility] PRN Reason: Protocol Last Admin: 11/28/17 21:30 Dose: 0.5 mg - Labs Labs: 11/28/17 06:30 11/28/17 06:30 Assessment and Plan - Assessment and Plan (Free Text) Plan: Infectious diseases attending physician addendum Patient discussed with medical sales associate. I have reviewed the pertinent clinical information. I agree with the above findings, assessment and plan and in addition: Assessment headache, resolved fevers might be due to superficial thrombophlebitis from peripheral IV line and hyperthyroidism, might be fever of unknown origin probable delirium from medication use GERD cervical radiculopathy lumbar herniated disc depression Plan MRI brain is negative doppler U/S as well of lower extremities are negative peripheral IV line has been removed will continue Merrem and Vancomycin - repeat cultures have been negative, and if patient develops fever again, should consider bone marrow biopsy and lumbar puncture follow up further recommendations of Neurology and Psych
--- NOTE | 2017-11-28 13:46 | CP.PCM.PN ---
<Mercedes Dubon - Last Filed: 11/28/17 13:42> Subjective - Date & Time of Evaluation Date of Evaluation: 11/28/17 Time of Evaluation: 10:45 - Subjective Subjective: PGY-1 Mercedes Dubon D.O. medicine progress note for Dr. Clinton's service: Patient was seen and examined this morning. No over night events reported. Patient is not in acute distress. His only complaint is chronic back pain. He is awake, alert, and oriented x3. When asked if he will work with PT today, patient responds "I guess." He is still not consenting to a lumbar puncture. Patient speaks with his eyes closed for most of the conversation. Objective - Vital Signs/Intake and Output Vital Signs (last 24 hours): Temp Pulse Resp BP Pulse Ox 98.6 F 90 20 150/99 H 98 11/28/17 06:00 11/28/17 06:00 11/28/17 06:00 11/28/17 09:40 11/28/17 06:00 Intake and Output: 11/28/17 11/28/17 06:59 18:59 Intake Total 240 Balance 240 - Medications Medications: Current Medications Acetaminophen (Tylenol 325mg Tab) 650 mg PO Q4H PRN PRN Reason: Fever >100.4 F Last Admin: 11/25/17 21:09 Dose: 650 mg Amlodipine Besylate (Norvasc) 10 mg PO DAILY [facility] Last Admin: 11/26/17 11:02 Dose: 10 mg Docusate Sodium (Colace) 100 mg PO TID [facility] Last Admin: 11/28/17 09:39 Dose: 100 mg Enoxaparin Sodium (Lovenox) 40 mg SC DAILY [facility] PRN Reason: Protocol Last Admin: 11/28/17 09:39 Dose: 40 mg Famotidine (Pepcid) 20 mg PO 1000 [facility] Last Admin: 11/28/17 09:39 Dose: 20 mg Meropenem (Merrem Iv 1 Gm Premix) 50 mls @ 100 mls/hr IVPB Q8 [facility] PRN Reason: Protocol Last Admin: 11/28/17 05:46 Dose: 100 mls/hr Vancomycin HCl (Vancomycin 1gm) 1 gm in 250 mls @ 167 mls/hr IVPB Q12H [facility] PRN Reason: Protocol Last Admin: 11/28/17 09:39 Dose: 167 mls/hr Ibuprofen (Motrin Tab) 400 mg PO Q6H PRN PRN Reason: Pain, moderate (4-7) Last Admin: 11/19/17 04:58 Dose: 400 mg Lisinopril (Zestril) 20 mg PO BID [facility] Last Admin: 11/26/17 18:22 Dose: 20 mg Lorazepam (Ativan) 1 mg PO Q6H PRN; Protocol PRN Reason: Agitation Last Admin: 11/28/17 05:53 Dose: 1 mg Methimazole (Tapazole) 10 mg PO DAILY [facility] Last Admin: 11/28/17 09:39 Dose: 10 mg Nystatin (Nystop Topical Powder) 0 gm TOP BID [facility] Last Admin: 11/27/17 18:15 Dose: 1 applic Oxycodone HCl (Oxycodone Immediate Release Tab) 30 mg PO Q6 PRN PRN Reason: Pain, severe (8-10) Last Admin: 11/28/17 09:40 Dose: 30 mg Polyethylene Glycol (Miralax) 17 gm PO BID PRN PRN Reason: Constipation Last Admin: 11/26/17 10:51 Dose: 17 gm Propranolol HCl (Inderal) 20 mg PO TID [facility] Last Admin: 11/28/17 09:40 Dose: 20 mg Risperidone (Risperdal Tab) 0.5 mg PO BID [facility] PRN Reason: Protocol Last Admin: 11/28/17 09:40 Dose: 0.5 mg Risperidone (Risperdal Tab) 0.5 mg PO HS [facility] PRN Reason: Protocol Last Admin: 11/26/17 21:35 Dose: 0.5 mg - Labs Labs: 11/28/17 06:30 11/28/17 06:30 - Constitutional Appears: Non-toxic, No Acute Distress, Unkempt - Head Exam Head Exam: ATRAUMATIC, NORMAL INSPECTION - Eye Exam Eye Exam: EOMI, Normal appearance - ENT Exam ENT Exam: Mucous Membranes Moist, Normal Exam - Neck Exam Neck Exam: Tenderness - Respiratory Exam Respiratory Exam: Clear to Ausculation Bilateral, NORMAL BREATHING PATTERN - Cardiovascular Exam Cardiovascular Exam: Tachycardia, REGULAR RHYTHM, +S1, +S2. absent: Murmur - GI/Abdominal Exam GI & Abdominal Exam: Soft, Tenderness (mild, improved), Normal Bowel Sounds - Rectal Exam Rectal Exam: Deferred - Extremities Exam Extremities Exam: absent: Pedal Edema, Tenderness Additional comments: muscle atrophy of b/l LEs - Back Exam Back Exam: tenderness Additional comments: midline vertical surgical scar, well-healed - Neurological Exam Neurological Exam: Alert, Awake, CN II-XII Intact, Oriented x3. absent: Normal Gait - Psychiatric Exam Psychiatric exam: Flat Affect - Skin Skin Exam: Dry, Intact, Normal Color, Warm Assessment and Plan - Assessment and Plan (Free Text) Assessment: Patient is a 37 year old male with a PMH of cervical radiculopathy w/ herniated disc, cervical spondylosis w/ myelopathy, thoracic spondylosis s/p extensive spinal surgeries, and depression vs schizophrenia spectrum under hospital management for AMS. Admitted for delirium 2/2 to polypharmacy, including chronic multiple opiates usage, which has resolved and he is now at baseline mental status. Patient has spiked fevers during hospital course possible due to hyperthyroidism; ruled out infectious causes except patient not consenting to LP. Also, patient has mod-severe muscle atrophy due to prolonged hospital stay, requiring physical therapy. 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 - Last fever was on 11/25 103 F - Will obtain rectal temperature for future oral temperatures >100.4 - Urine Cx negative (11/26) - Sputum Cx negative (11/25) - Blood Cx negative x2 (11/25) - LE Dopplers (11/23): no DVT - CXR (11/25): no active disease - RPR negative - Procal <0.05 - No leukocytosis - Echo pending- r/o endocarditis - Lupus panel pending - Motrin 600 mg PO Q6H PRN - Meropenem 1 g IV Q8H (started 11/25) - Vancomycin 1 g IV Q12H (started 11/25) - ID consulted (Abraham) Muscle atrophy- 2/2 Immobility and Multiple Spinal Surgeries - Encourage OOB to chair with assistance - PT- poor progress, patient putting in minimal effort - Discussed with patient's mother to encourage patient to ambulate and participate with PT Chronic back pain - Motrin 600 mg PO Q6H PRN - Oxycodone 30 mg PO Q6H PRN - Colace 100 mg PO TID - Miralax 17 g PO BID PRN - Encourage OOB to chair - PT- poor progress, patient putting in minimal effort AMS, resolved- delirium due to polypharmacy/multiple opiates, underlying psychiatric disorder (schizophrenia spectrum vs depression) - Discontinued opiates, benzos, stimulants - Only restarted oxycodone 30 mg PO Q6H PRN - Risperdal 0.5 mg PO BID, 0.5 mg PO QHS - Ativan 0.5 mg PO BID PRN agitation- taper - Neurology consulted (Sukhwinder)- signed off, pt refused LP - Psychiatry consulted (Taylor)- add Risperdal Hyperthyroidism - 11/25 T4 11.9, TSH 0.42 - Propranolol 20 mg PO TID - Methimazole 10 mg PO daily - Endocrinology consulted (Cam) HTN- presently well controlled - Propranolol 20 mg PO TID - Lisinopril 20 mg PO BID - Norvasc 10 mg PO daily Transaminitis, stable- AST 37, ALT 91 - Monitor daily - Avoid hepatotoxic medications IVF: not indicated Diet: regular GI ppx: Pepcid 20 mg PO daily VTE ppx: Lovenox 40 mg SC daily Code status: full code Dispo: Continue with Physical Therapy- rec FREDRICK. F/u work-up for fevers. Case discussed with attending, Dr. Clinton. <Denia Clinton R - Last Filed: 11/29/17 17:03> Objective - Vital Signs/Intake and Output Vital Signs (last 24 hours): Temp Pulse Resp BP Pulse Ox 98.8 F 148 H 20 151/101 H 97 11/29/17 06:00 11/29/17 13:00 11/29/17 06:00 11/29/17 13:00 11/29/17 06:00 Intake and Output: 11/29/17 11/29/17 06:59 18:59 Intake Total 400 240 Output Total 0 Balance 400 240 - Medications Medications: Current Medications Amlodipine Besylate (Norvasc) 10 mg PO DAILY [facility] Last Admin: 11/26/17 11:02 Dose: 10 mg Docusate Sodium (Colace) 100 mg PO TID [facility] Last Admin: 11/29/17 14:37 Dose: Not Given Enoxaparin Sodium (Lovenox) 40 mg SC DAILY [facility]; Protocol Last Admin: 11/29/17 10:16 Dose: 40 mg Famotidine (Pepcid) 20 mg PO 1000 [facility] Last Admin: 11/29/17 10:17 Dose: 20 mg Meropenem (Merrem Iv 1 Gm Premix) 50 mls @ 100 mls/hr IVPB Q8 [facility]; Protocol Last Admin: 11/28/17 21:30 Dose: 100 mls/hr Vancomycin HCl (Vancomycin 1gm) 1 gm in 250 mls @ 167 mls/hr IVPB Q12H [facility]; Protocol Last Admin: 11/29/17 10:16 Dose: 167 mls/hr Ibuprofen (Motrin Tab) 600 mg PO Q6H PRN PRN Reason: mild pain or fever >100.4 Lisinopril (Zestril) 20 mg PO BID [facility] Last Admin: 11/26/17 18:22 Dose: 20 mg Methimazole (Tapazole) 10 mg PO DAILY [facility] Last Admin: 11/29/17 10:17 Dose: 10 mg Nystatin (Nystop Topical Powder) 0 gm TOP BID [facility] Last Admin: 11/29/17 10:17 Dose: 1 applic Oxycodone HCl (Oxycodone Immediate Release Tab) 30 mg PO Q6 PRN PRN Reason: Pain, severe (8-10) Last Admin: 11/29/17 10:17 Dose: 30 mg Propranolol HCl (Inderal) 20 mg PO TID [facility] Last Admin: 11/29/17 14:38 Dose: Not Given Risperidone (Risperdal Tab) 0.5 mg PO BID [facility]; Protocol Last Admin: 11/29/17 10:17 Dose: 0.5 mg Risperidone (Risperdal Tab) 0.5 mg PO HS [facility]; Protocol Last Admin: 11/28/17 21:30 Dose: 0.5 mg - Labs Labs: 11/29/17 06:20 11/29/17 06:20 Attending/Attestation - Attestation I have personally seen and examined this patient.: Yes I have fully participated in the care of the patient.: Yes I have reviewed all pertinent clinical information, including history, physical exam and plan: Yes Notes (Text): Patient seen and examined by me at 12:15 PM with resident 11/28/17. Case in cluding HPI, physical exam, and assessment and plan discussed with resident. Agree with above with following additions/corrections. Patient is a 37 year old male with past medical history that is significant for cervical radiculopathy with herniated disc, cervical spondylosis with myelopathy, thoracic spondylosis, and depression that presented to the emergency room with visual hallucinations. Patient states he is feeling ok. Complains of neck and back pain. Discussed lumbar puncture with patient. She is adamantly refusing. Patient is denying any nausea, vomiting, or abdominal pain. No chest pain or shortness of breath. No headaches or dizziness. Patient is afebrile today. Patient is having bowel movements. Physical exam: General: Awake and alert sitting up in bed in no acute distress HEENT: Normocephalic atraumatic. Pupils equal reactive. No scleral icterus. Oropharynx is pink and moist. Poor dentition. Neck is supple. Cardiovascular: Normal rhythm. Normal S1, S2. No murmurs, rubs, or gallops appreciated Pulmonary: Normal respiratory effort. No rhonchi, rales or wheezing appreciated. Gastrointestinal: Soft, nondistended. Nontender. Positive bowel sounds all 4 quadrants, no guarding. Musculoskeletal: Moves all extremities, no calf tenderness, no edema appreciated. Positive cervical spine tenderness. Central nervous system: Awake and alert. Oriented x2. Dermatologic: Skin warm and dry. Positive well healed scar on back. Assessment and plan: Patient is a 37 year old male with past medical history that is significant for cervical radiculopathy with herniated disc, cervical spondylosis with myelopathy, thoracic spondylosis, and depression that presented to the emergency room with visual hallucinations. 1. Fever. Unclear etiology. Continues to have intermittent fevers. ID following, recommendations appreciated. Continue vancomycin, meropenem, and acyclovir. Blood cultures with no growth. Urine cultures with no growth. Patient refusing lumbar puncture. MRI brain negative for infection. CT abdomen/pelvis/chest negative for infection. Upper and lower extremity venous Dopplers negative for DVT. Chest x-ray negative for infection. RPR nonreactive. Leukocytosis resolved. May be secondary to hyperthyroidism. 2. Acute delirium. Likely secondary to chronic opioid use and polypharmacy. May be secondary to unlcear underlying infection. Waxes and wanes. Improved. Co ntinue Ativan as needed. Continue Risperdal. Continue oxycodone. 3. Leukocytosis. Resolved. Continue to monitor. 4. Hyperthyroidism. Endocrinology following, recommendations appreciated. Continue propranolol and methimazole. 5. Essential hypertension. Continue lisinopril, Norvasc, and propanolol. 6. Constipation. Continue Colace and Miralax. 7. Hypokalemia. We'll replace. Follow up repeat labs in a.m. Case discussed in detail with the patient regarding current diagnosis and treatment plan.
--- NOTE | 2017-11-28 21:02 | PN ---
Copied To: Taylor Issa MD Attending MD: Taylor Issa MD DATE: 11/28/2017 FOLLOWUP NOTE SUBJECTIVE: The patient was followed up today. There is no change to the patient's presentation. Last time, the patient had fever that was on . Discussed with Dr. Clinton today. There is no source of infection. The patient refused to have spinal tap. Besides that, there is no agitation, no aggression, no aggressive behavior. PHYSICAL EXAMINATION: VITAL SIGNS: Reviewed today. The patient's temperature is 98.6, blood pressure 113/75, respirations 20, oxygen saturation of 96%. MEDICATIONS: Reviewed. Norvasc, Colace, Lovenox, Pepcid, Motrin, Zestril, Ativan p.r.n., meropenem, Tapazole, nystatin, oxycodone, MiraLax, Inderal, Risperdal, and vancomycin. LABORATORY DATA: Reviewed. Most recent was from today. Hemoglobin and hematocrit 10.4 and 32.1. ESR 18 which is elevated. MENTAL STATUS EXAMINATION: The patient appears to be sleepy, easily arousable, no agitation or aggression. The patient reports feeling better. Affect was flat. No eye contact. Speech was underproductive, low volume. Mood described as depressed. Affect was flat. Thought process concrete. Thought content: The patient denied visual, auditory, or tactile hallucinations, but the patient has episodes of visual hallucinations, catching something in the ear. Insight and judgment seem to be limited. Impulses are well controlled. IMPRESSION: Most likely, the patient had delirium stage. The patient is slowly improving. PLAN: Continue current management. Continue current medication. Ativan will be tapered down. Risperdal should be continued. Medical team is not sure what causing the patient to have spike of fever. Physical therapy recommended. Meanwhile, there is no acute psychosis. This television script writer will see the patient every other day or as needed. The patient not in any imminent danger to self or others. Should you have any questions, give me a call back. Taylor Issa MD [facility] # [phone]
--- NOTE | 2017-11-29 06:19 | CP.PCM.PN ---
<Mercedes Dubon - Last Filed: 11/29/17 18:40> Subjective - Date & Time of Evaluation Date of Evaluation: 11/29/17 Time of Evaluation: 07:20 - Subjective Subjective: PGY-1 Mercedes Dubon D.O. medicine progress note for Dr. Clinton's service: Patient was seen and examined this morning. Nursing reports that patient was retaining fluid yesterday and was straight cathed. Later in the night, the patient was incontinent of urine. Patient denied pain. He did not respond when asked about PT. Patient was re-examined in the afternoon when he was noted to have increased HR in the 160s. Patient was staring at the ceiling. He was able to be re-directed with raised voice and shaking of his arm. When asked what patient was looking at, he responded "that." When asked how many people were in the room, he responded, "a lot" (note only the patient and this automatic typewriter inspector were in the room). He was able to respond to other questions fairly appropriately with one word answers, but he would go back to staring at the ceiling. EKG demonstrated sinus tachycardia. CTA did not show large PE. Patient was give a total of 15 mg Lopressor IVP to decrease HR. Rectal temperature was 102.7. Patient was transferred to remote telemetry. Objective - Vital Signs/Intake and Output Vital Signs (last 24 hours): Temp Pulse Resp BP Pulse Ox 98.6 F 94 H 20 123/89 96 11/28/17 14:00 11/28/17 17:58 11/28/17 14:00 11/28/17 17:58 11/28/17 14:00 Intake and Output: 11/28/17 11/29/17 18:59 06:59 Intake Total 400 Output Total 0 Balance 400 - Medications Medications: Current Medications Amlodipine Besylate (Norvasc) 10 mg PO DAILY [facility] Last Admin: 11/26/17 11:02 Dose: 10 mg Docusate Sodium (Colace) 100 mg PO TID [facility] Last Admin: 11/28/17 17:58 Dose: 100 mg Enoxaparin Sodium (Lovenox) 40 mg SC DAILY [facility]; Protocol Last Admin: 11/28/17 09:39 Dose: 40 mg Famotidine (Pepcid) 20 mg PO 1000 [facility] Last Admin: 11/28/17 09:39 Dose: 20 mg Meropenem (Merrem Iv 1 Gm Premix) 50 mls @ 100 mls/hr IVPB Q8 [facility]; Protocol Last Admin: 11/28/17 21:30 Dose: 100 mls/hr Vancomycin HCl (Vancomycin 1gm) 1 gm in 250 mls @ 167 mls/hr IVPB Q12H [facility], [facility]; Protocol Last Admin: 11/28/17 22:12 Dose: 167 mls/hr Ibuprofen (Motrin Tab) 600 mg PO Q6H PRN PRN Reason: mild pain or fever >100.4 Lisinopril (Zestril) 20 mg PO BID [facility] Last Admin: 11/26/17 18:22 Dose: 20 mg Lorazepam (Ativan) 0.5 mg IVP BID PRN; Protocol PRN Reason: Agitation Methimazole (Tapazole) 10 mg PO DAILY [facility] Last Admin: 11/28/17 09:39 Dose: 10 mg Nystatin (Nystop Topical Powder) 0 gm TOP BID [facility] Last Admin: 11/28/17 17:59 Dose: 1 applic Oxycodone HCl (Oxycodone Immediate Release Tab) 30 mg PO Q6 PRN PRN Reason: Pain, severe (8-10) Last Admin: 11/28/17 23:53 Dose: 30 mg Polyethylene Glycol (Miralax) 17 gm PO BID PRN PRN Reason: Constipation Last Admin: 11/26/17 10:51 Dose: 17 gm Propranolol HCl (Inderal) 20 mg PO TID [facility] Last Admin: 11/28/17 17:58 Dose: 20 mg Risperidone (Risperdal Tab) 0.5 mg PO BID [facility]; Protocol Last Admin: 11/28/17 17:59 Dose: 0.5 mg Risperidone (Risperdal Tab) 0.5 mg PO HS [facility]; Protocol Last Admin: 11/28/17 21:30 Dose: 0.5 mg - Labs Labs: 11/28/17 06:30 11/28/17 06:30 - Constitutional Appears: No Acute Distress, Unkempt, Confused - Head Exam Head Exam: ATRAUMATIC, NORMAL INSPECTION - Eye Exam Eye Exam: EOMI, Normal appearance, PERRL - ENT Exam ENT Exam: Mucous Membranes Moist, Normal Exam - Neck Exam Neck Exam: Normal Inspection - Respiratory Exam Respiratory Exam: Clear to Ausculation Bilateral, NORMAL BREATHING PATTERN - Cardiovascular Exam Cardiovascular Exam: Tachycardia, REGULAR RHYTHM - GI/Abdominal Exam GI & Abdominal Exam: Soft, Normal Bowel Sounds. absent: Tenderness - Rectal Exam Rectal Exam: Deferred - Extremities Exam Additional comments: muscle atrophy of b/l LEs - Back Exam Additional comments: midline vertical surgical scar, well-healed - Neurological Exam Neurological Exam: Alert, Awake, Oriented x3 - Psychiatric Exam Psychiatric exam: Flat Affect - Skin Skin Exam: Dry, Intact, Normal Color, Warm Assessment and Plan - Assessment and Plan (Free Text) Assessment: Patient is a 37 year old male with a PMH of cervical radiculopathy w/ herniated disc, cervical spondylosis w/ myelopathy, thoracic spondylosis s/p extensive spinal surgeries, and depression vs schizophrenia spectrum under hospital [facility] for [facility]. Admitted for delirium 2/2 to polypharmacy, including chronic multiple opiates usage, which has resolved and he is now at baseline mental status. Patient has spiked fevers during hospital course possible due to hyperthyroidism; ruled out infectious causes except patient not consenting to LP. Also, patient has mod-severe muscle atrophy due to prolonged hospital stay, requiring physical therapy. Patient developed increased sinus tachycardia and was transferred to [facility] on 11/29. Will repeat sepsis work-up and thyroid studies. Patient also noted to intermittently have auditory and visual hallucinations- observed to be responding to internal stimuli. Plan: Fevers- suspect 2/2 hyperthyroidism vs central vs [employer]IST[employer] GENER[employer]GER infection/meningitis - Last fever was on 11/25 103 F - Will obtain rectal temperature for future oral temperatures >100.4 - Urine Cx negative (11/26) - Sputum Cx negative (11/25) - Blood Cx negative x2 (11/25) - LE Dopplers (11/23): no DVT - CXR (11/25): no active disease - RPR negative - HIV negative - Procal <0.05 - No leukocytosis - Echo: no vegetations seen but limited study with poor visualization - Lupus panel pending - Motrin 600 mg PO Q6H PRN - Meropenem 1 g IV Q8H (started 11/25) - Vancomycin 1 g IV Q12H (started 11/25) - ID consulted (Abraham) Delirium, intermittent- initially suspected 2/2 to polypharmacy/multiple opiates, underlying psychiatric disorder (schizophrenia spectrum vs depression), patient continues to intermittently hallucinate, so cause is likely multifactorial (thyroid, fevers) - Discontinued opiates, benzos, stimulants - Only restarted oxycodone 30 mg PO Q6H PRN - Risperdal 0.5 mg PO BID, 0.5 mg PO QHS - Discontinued Ativan - Neurology consulted (Sukhwinder)- signed off, pt refused LP - Psychiatry consulted (Taylor)- add Risperdal Sinus tachycardia- 2/2 to hyperthyroidism, fevers - 11/29 HR 160s- given Lopressor 5 mg IVP x3, improved to 110s - EKG: no ST changes - CTA: Cannot rule out segmental/subsegmental pulmonary artery embolism. No large central pulmonary embolism. - Monitor on remote telemetry Hyperthyroidism - 11/25 T4 11.9, TSH 0.42 - Propranolol 20 mg PO TID - Methimazole 10 mg PO daily - Endocrinology consulted (Garrick) Muscle atrophy- 2/2 Immobility and Multiple Spinal Surgeries - Encourage OOB to chair with assistance - PT- poor progress, patient putting in minimal effort - Discussed with patient's mother to encourage patient to ambulate and participate with PT Chronic back pain - Motrin 600 mg PO Q6H PRN - Oxycodone 30 mg PO Q6H PRN - Colace 100 mg PO TID - Miralax 17 g PO BID PRN - Encourage OOB to chair - PT- poor progress, patient putting in minimal effort HTN- presently well controlled - Propranolol 20 mg PO TID - Lisinopril 20 mg PO BID - Norvasc 10 mg PO daily Transaminitis, stable- AST 37, ALT 91 - Monitor daily - Avoid hepatotoxic medications IVF: not indicated Diet: regular GI ppx: Pepcid 20 mg PO daily VTE ppx: Lovenox 40 mg SC daily Code status: full code Dispo: Continue with Physical Therapy- rec FREDRICK. F/u work-up for fevers. Case discussed with attending, Dr. Clinton. <Denia Clinton - Last Filed: 11/30/17 15:49> Objective - Vital Signs/Intake and Output Vital Signs (last 24 hours): Temp Pulse Resp BP Pulse Ox 97.8 F 115 H 19 137/99 H 97 11/30/17 08:04 11/30/17 10:53 11/30/17 08:04 11/30/17 10:53 11/30/17 08:04 Intake and Output: 11/30/17 11/30/17 06:59 18:59 Intake Total 690 Output Total 825 Balance -135 - Medications Medications: Current Medications Amlodipine Besylate (Norvasc) 10 mg PO DAILY [facility] Last Admin: 11/30/17 10:53 Dose: 10 mg Docusate Sodium (Colace) 100 mg PO TID [facility] Last Admin: 11/30/17 15:17 Dose: Not Given Enoxaparin Sodium (Lovenox) 110 mg SC Q12 [facility]; Protocol Famotidine (Pepcid) 20 mg PO 1000 BOBBY Last Admin: 11/30/17 10:51 Dose: 20 mg Meropenem (Merrem Iv 1 Gm Premix) 50 mls @ 100 mls/hr IVPB Q8 [facility]; Protocol Last Admin: 11/30/17 15:18 Dose: Not Given Vancomycin HCl (Vancomycin 1gm) 1 gm in 250 mls @ 167 mls/hr IVPB Q12H [facility]; Protocol Last Admin: 11/30/17 10:53 Dose: 167 mls/hr Ibuprofen (Motrin Tab) 600 mg PO Q6H PRN PRN Reason: mild pain or fever >100.4 Lisinopril (Zestril) 20 mg PO BID [facility] Last Admin: 11/30/17 10:53 Dose: 20 mg Methimazole (Tapazole) 10 mg PO DAILY [facility] Last Admin: 11/30/17 10:51 Dose: 10 mg Nystatin (Nystop Topical Powder) 0 gm TOP BID [facility] Last Admin: 11/30/17 10:54 Dose: 1 applic Oxycodone HCl (Oxycodone Immediate Release Tab) 30 mg PO Q6 PRN PRN Reason: Pain, severe (8-10) Last Admin: 11/30/17 05:28 Dose: 30 mg Propranolol HCl (Inderal) 20 mg PO TID [facility] Last Admin: 11/30/17 15:18 Dose: Not Given Risperidone (Risperdal Tab) 0.5 mg PO BID [facility]; Protocol Last Admin: 11/30/17 10:52 Dose: 0.5 mg Risperidone (Risperdal Tab) 0.5 mg PO HS [facility]; Protocol Last Admin: 11/29/17 21:08 Dose: 0.5 mg - Labs Labs: 11/30/17 06:00 11/30/17 06:00 Attending/Attestation - Attestation I have personally seen and examined this patient.: Yes I have fully participated in the care of the patient.: Yes I have reviewed all pertinent clinical information, including history, physical exam and plan: Yes Notes (Text): Patient seen and examined by me at 2:40 PM with resident 11/29/17. Case including HPI, physical exam, and assessment and plan discussed with resident. Agree with above with following additions/corrections. Patient is a 37 year old male with past medical history that is significant for cervical radiculopathy with herniated disc, cervical spondylosis with myelopathy, thoracic spondylosis, and depression that presented to the emergency room with visual hallucinations. Patient states he is feeling ok. Patient is not answering to many questions today. Appears to be hallucinating. Not answering questions appropriately. Patie nt found to be febrile and tachycardic Physical exam: General: Awake and alert sitting up in bed in no acute distress HEENT: Normocephalic atraumatic. Pupils equal reactive. No scleral icterus. Oropharynx is pink and moist. Poor dentition. Neck is supple. Cardiovascular: Tachycardic S1, S2. No murmurs, rubs, or gallops appreciated Pulmonary: Normal respiratory effort. No rhonchi, rales or wheezing appreciated. Gastrointestinal: Soft, nondistended. Nontender. Positive bowel sounds all 4 quadrants, no guarding. Musculoskeletal: Moves all extremities, no calf tenderness, no edema appreciated. Positive cervical spine tenderness. Central nervous system: Awake and alert. Confused, hallucinating Dermatologic: Skin warm and dry. Positive well healed scar on back. Assessment and plan: Patient is a 37 year old male with past medical history that is significant for cervical radiculopathy with herniated disc, cervical spondylosis with myelopathy, thoracic spondylosis, and depression that presented to the emergency room with visual hallucinations. 1. Fever. Unclear etiology. Continues to have intermittent fevers. ID following, recommendations appreciated. Will hathaway culture again. Continue vancomycin and meropenem. Blood cultures with no growth. Urine cultures with no growth. Patient refusing lumbar puncture. MRI brain negative for infection. CT abdomen/pelvis/chest negative for infection. Upper and lower extremity venous Dopplers negative for DVT. Chest x-ray negative for infection. RPR nonreactive. Leukocytosis resolved. May be secondary to hyperthyroidism. 2. Tachycarida. Likely secondary to fever. Follow up CTA chest. Follow up serial troponins. Transfer to telemetry. 3. Acute delirium. Likely secondary to chronic opioid use and polypharmacy. May be secondary to unlcear underlying infection. Waxes and wanes. Continue Ativan as needed. Continue Risperdal. Continue oxycodone. 4. Leukocytosis. Resolved. Continue to monitor. 5. Hyperthyroidism. Endocrinology following, recommendations appreciated. Continue propranolol and methimazole. 6. Essential hypertension. Continue lisinopril, Norvasc, and propanolol. 7. Constipation. Continue Colace and Miralax. 8. Hypokalemia. Resolved. Continue to monitor. Case discussed in detail with the patient regarding current diagnosis and treatment plan.
--- NOTE | 2017-11-29 06:52 | CP.PCM.PN ---
<Shira Jara - Last Filed: 11/29/17 15:19> Subjective - Date & Time of Evaluation Date of Evaluation: 11/29/17 Time of Evaluation: 09:00 - Subjective Subjective: PGY-3 ID resident progress note for Dr Rosario. Patient remains stable. No fever overnight. Patient became more confused this afternoon, HR os 160, CT angio was done and could not rule out PE. Rectal TEMP was 102.8, repeat sepsis work up was sent. Objective - Vital Signs/Intake and Output Vital Signs (last 24 hours): Temp Pulse Resp BP Pulse Ox 98.6 F 94 H 20 123/89 96 11/28/17 14:00 11/28/17 17:58 11/28/17 14:00 11/28/17 17:58 11/28/17 14:00 Intake and Output: 11/28/17 11/29/17 18:59 06:59 Intake Total 400 Output Total 0 Balance 400 - Medications Medications: Current Medications Amlodipine Besylate (Norvasc) 10 mg PO DAILY [facility] Last Admin: 11/26/17 11:02 Dose: 10 mg Docusate Sodium (Colace) 100 mg PO TID [facility] Last Admin: 11/28/17 17:58 Dose: 100 mg Enoxaparin Sodium (Lovenox) 40 mg SC DAILY [facility]; Protocol Last Admin: 11/28/17 09:39 Dose: 40 mg Famotidine (Pepcid) 20 mg PO 1000 BOBBY Last Admin: 11/28/17 09:39 Dose: 20 mg Meropenem (Merrem Iv 1 Gm Premix) 50 mls @ 100 mls/hr IVPB Q8 [facility]; Protocol Last Admin: 11/28/17 21:30 Dose: 100 mls/hr Vancomycin HCl (Vancomycin 1gm) 1 gm in 250 mls @ 167 mls/hr IVPB Q12H [facility]; Protocol Last Admin: 11/28/17 22:12 Dose: 167 mls/hr Ibuprofen (Motrin Tab) 600 mg PO Q6H PRN PRN Reason: mild pain or fever >100.4 Lisinopril (Zestril) 20 mg PO BID [facility] Last Admin: 11/26/17 18:22 Dose: 20 mg Lorazepam (Ativan) 0.5 mg IVP BID PRN; Protocol PRN Reason: Agitation Methimazole (Tapazole) 10 mg PO DAILY [facility] Last Admin: 11/28/17 09:39 Dose: 10 mg Nystatin (Nystop Topical Powder) 0 gm TOP BID [facility] Last Admin: 11/28/17 17:59 Dose: 1 applic Oxycodone HCl (Oxycodone Immediate Release Tab) 30 mg PO Q6 PRN PRN Reason: Pain, severe (8-10) Last Admin: 11/28/17 23:53 Dose: 30 mg Polyethylene Glycol (Miralax) 17 gm PO BID PRN PRN Reason: Constipation Last Admin: 11/26/17 10:51 Dose: 17 gm Propranolol HCl (Inderal) 20 mg PO TID [facility] Last Admin: 11/28/17 17:58 Dose: 20 mg Risperidone (Risperdal Tab) 0.5 mg PO BID [facility]; Protocol Last Admin: 11/28/17 17:59 Dose: 0.5 mg Risperidone (Risperdal Tab) 0.5 mg PO HS [facility]; Protocol Last Admin: 11/28/17 21:30 Dose: 0.5 mg - Labs Labs: 11/28/17 06:30 11/28/17 06:30 - Constitutional Appears: In Acute Distress (mild distress), Older Than Stated Age, Confused, Chronically Ill - Head Exam Head Exam: ATRAUMATIC, NORMAL INSPECTION, NORMOCEPHALIC - Eye Exam Eye Exam: Normal appearance - ENT Exam ENT Exam: Mucous Membranes Moist - Neck Exam Neck Exam: Normal Inspection, Tenderness - Respiratory Exam Respiratory Exam: Clear to Ausculation Bilateral, NORMAL BREATHING PATTERN. absent: Rales, Rhonchi, Wheezes, Respiratory Distress, Stridor - Cardiovascular Exam Cardiovascular Exam: Tachycardia, +S1, +S2. absent: Gallop, Rubs, Murmur - GI/Abdominal Exam GI & Abdominal Exam: Soft, Normal Bowel Sounds. absent: Distended, Firm, Guarding, Rigid, Tenderness - Extremities Exam Extremities Exam: Normal Inspection. absent: Pedal Edema - Neurological Exam Neurological Exam: Awake Additional comments: Waxing and waning mental status, at times incoherent. - Psychiatric Exam Psychiatric exam: Anxious - Skin Skin Exam: Normal Color, Warm Additional comments: brusing on the left upper extremity and right thigh. Assessment and Plan - Assessment and Plan (Free Text) Assessment: 37 y/o with: SIRS - possibly fever of unknown origin, sepsis was ruled out, tmax of 102.8, this evening autoimmune work up pending including vasculitis, and lupus, quatiferon gold sent, CT angio done to rule out PE, DVT ruled out, HIV was ruled out with 4th generation test, DVT ruled out. Hyperthyroidism and drug fever are another possibilities. Controlled substance use including opiate, methadone and benzo Delirium- resolved Depression Transaminitis Herniated disc cervical spondylosis Myelopathy Plan: Patient with tmax of 102.8, sepsis work up sent including blood and urine cultures. Patient was also tachycardeic, thus CT angio was done, however cannot rule out PE. On merrem and vancomycin day# 4. No leukocytosis, multiple blood cultures, and urine cultures with no growth with low procal, thus less likely bacterial infection. HIV negative, normal hep panel, and negative RPR. Echo ordered to rule out endocarditis, pending. Autoimmune work up including lupus, and ANCA sent. Quantiferon gold sent to rule pe MRI of the brain was done and ruled out herpes encephalitis CT chest abdomen and pelvis with no intra-abdominal infections or adenopathies noted. No history of indwelling hardwares, no recent surgery, Discussed with the medical team, patient need to undergo lumbar puncture to rule out other causes of encephalitis and Bone marrow biopsy to rule out hematologic malignancies. Patient seen, examined and case discussed with Dr. Rosario. <Gonzalo Rosario - Last Filed: 11/29/17 20:38> Objective - Vital Signs/Intake and Output Vital Signs (last 24 hours): Temp Pulse Resp BP Pulse Ox 97.8 F 145 H 19 154/105 H 97 11/29/17 17:03 11/29/17 19:28 11/29/17 17:03 11/29/17 18:40 11/29/17 17:03 Intake and Output: 11/29/17 11/30/17 18:59 06:59 Intake Total 240 120 Output Total 200 Balance 240 -80 - Medications Medications: Current Medications Amlodipine Besylate (Norvasc) 10 mg PO DAILY [facility] Last Admin: 11/26/17 11:02 Dose: 10 mg Docusate Sodium (Colace) 100 mg PO TID [facility] Last Admin: 11/29/17 18:40 Dose: 100 mg Enoxaparin Sodium (Lovenox) 40 mg SC DAILY [facility]; Protocol Last Admin: 11/29/17 10:16 Dose: 40 mg Famotidine (Pepcid) 20 mg PO 1000 [facility]OBBY Last Admin: 11/29/17 10:17 Dose: 20 mg Meropenem (Merrem Iv 1 Gm Premix) 50 mls @ 100 mls/hr IVPB Q8 [facility]; Protocol Last Admin: 11/28/17 21:30 Dose: 100 mls/hr Vancomycin HCl (Vancomycin 1gm) 1 gm in 250 mls @ 167 mls/hr IVPB Q12H [facility]; Protocol Last Admin: 11/29/17 10:16 Dose: 167 mls/hr Ibuprofen (Motrin Tab) 600 mg PO Q6H PRN PRN Reason: mild pain or fever >100.4 Lisinopril (Zestril) 20 mg PO BID [facility] Last Admin: 11/26/17 18:22 Dose: 20 mg Methimazole (Tapazole) 10 mg PO DAILY [facility] Last Admin: 11/29/17 10:17 Dose: 10 mg Nystatin (Nystop Topical Powder) 0 gm TOP BID [facility] Last Admin: 11/29/17 18:35 Dose: 1 applic Oxycodone HCl (Oxycodone Immediate Release Tab) 30 mg PO Q6 PRN PRN Reason: Pain, severe (8-10) Last Admin: 11/29/17 10:17 Dose: 30 mg Propranolol HCl (Inderal) 20 mg PO TID [facility] Last Admin: 11/29/17 18:40 Dose: 20 mg Risperidone (Risperdal Tab) 0.5 mg PO BID [facility]; Protocol Last Admin: 11/29/17 18:40 Dose: 0.5 mg Risperidone (Risperdal Tab) 0.5 mg PO HS [facility]; Protocol Last Admin: 11/28/17 21:30 Dose: 0.5 mg - Labs Labs: 11/29/17 06:20 11/29/17 06:20 Assessment and Plan - Assessment and Plan (Free Text) Plan: Infectious diseases attending physician addendum Patient discussed with medical cost consultant. I have reviewed the pertinent clinical information. I agree with the above findings, assessment and plan and in a ddition: Assessment fever of unknown origin hyperthyroidism probable delirium from medication use GERD cervical radiculopathy lumbar herniated disc depression Plan MRI brain is negative doppler U/S as well of lower extremities are negative peripheral IV line has been removed will continue Merrem and Vancomycin - repeat cultures have been negative - recommend bone marrow biopsy and lumbar puncture follow up Quantiferon TB test follow up further recommendations of Neurology and Psych
[2017-11-29 06:59] LABS: BASO # 0.01 K/mm3 (0.0-2.0); BASO % 0.1 % (0.0-3.0); EOS % 0.1 % (1.5-5.0); GRAN # 6.34 (1.4-6.5); GRAN % 77.7 % (50.0-68.0); LYMPH # 1.2 (1.2-3.4); MEAN CELL VOLUME 89.3 fl (80.0-105.0); MEAN CORPUSCULAR HEMOGLOBIN 28.1 pg (25.0-35.0); MEAN CORPUSCULAR HGB CONC 31.5 g/dl (31.0-37.0); MEAN PLATELET VOLUME 8.8 fl (7.0-11.0); MONO # 0.6 (0.1-0.6); MONO % 7.1 % (1.0-6.0); RBC 3.91 10^6/uL (3.5-6.1); WHITE BLOOD COUNT 8.2 10^3/ul (4.5-11.0)
[2017-11-29 07:14] LABS: ALB/GLOB RATIO 0.9 (1.1-1.8); ALBUMIN 3.5 g/dL (3.0-4.8); ALT/SGPT 83 U/L (7-56); AST/SGOT 33 U/L (17-59); BLOOD UREA NITROGEN 13 mg/dL (7-21); CALCIUM 9.1 mg/dL (8.4-10.5); GFR NON-AFRICAN AMERICAN > 60
[2017-11-29] MEDS: Enoxaparin 40 mg Syringe SC SCH (10:16)
[2017-11-29] MEDS: Vancomycin 1gm in NS 250ml 1 GM/250 ML BAG IVPB SCH ×2 (10:16→21:09)
[2017-11-29] MEDS: Nystatin 100,000 Units/gm Topical Pow(15 gm) TOP SCH ×2 (10:17→18:35)
[2017-11-29] MEDS: oxyCODONE 30 mg Immediate Release Tab PO PRN (10:17)
[2017-11-29] MEDS: methIMAzole 5 MG TAB PO SCH (10:17)
[2017-11-29] MEDS ORDERED: Metoprolol 1 mg/ml Inj IVP STA ×2 (12:29→14:55)
[2017-11-29] MEDS ORDERED: Iohexol 350 MG/100 ML VIAL ONE (12:48)
[2017-11-29] MEDS: Metoprolol 1 mg/ml Inj IVP ONE ×2 (13:00→14:38)
--- NOTE | 2017-11-29 13:34 | CARD ---
APPROVED REPORT Date of service: 11/29/2017 EKG Measurement Heart [id number] [id number] <Conclusion> Sinus tachycardia with short NH PRWP, probably due to lead positioning. Prolonged QTc
[2017-11-29 14:24] LABS: PH,URINE 8.5 (4.7-8.0); URINE BILIRUBIN NEGATIVE (NEGATIVE); URINE BLOOD NEGATIVE (NEGATIVE); URINE GLUCOSE (UA) NEGATIVE (NEGATIVE); URINE LEUKOCYTE ESTERASE NEGATIVE Leu/uL (NEGATIVE); URINE PROTEIN 30 mg/dL (<30 mg/dL)
[2017-11-29 14:28] LABS: URINE APPEARANCE SL CLOUDY (CLEAR); URINE COLOR YELLOW (YELLOW)
--- NOTE | 2017-11-29 14:28 | CT ---
Date of service: 11/29/2017 PROCEDURE: CT Chest with contrast (Pulmonary Angiogram) HISTORY: Tachy; R/O PE COMPARISON: 11/16/2017 TECHNIQUE: Axial computed tomography images were obtained of the chest in the pulmonary arterial phase of enhancement. Coronal and sagittal reformatted images were created and reviewed. Intravenous contrast dose: 100 mL Omnipaque 350 Radiation dose: Total exam DLP = 549.65 mGy-cm. This CT exam was performed using one or more of the following dose reduction techniques: Automated exposure control, adjustment of the mA and/or kV according to patient size, and/or use of iterative reconstruction technique. FINDINGS: PULMONARY ARTERIES: Technically limited examination. Poor venous access peripherally. Limited injection flow rate. Poor opacification of segmental/subsegmental pulmonary artery branches. No large central pulmonary embolus identified. AORTA: No acute findings. No thoracic aortic aneurysm. LUNGS: Unremarkable. No nodule, mass or pulmonary consolidation. PLEURAL SPACES: Unremarkable. No effusion or pneumothorax. HEART: Unremarkable. No cardiomegaly. No significant pericardial effusion. LYMPH NODES: No lymphadenopathy. BONES, CHEST WALL: No fracture. Incidentally noted bilateral gynecomastia. OTHER FINDINGS: Unremarkable. IMPRESSION: Technically limited examination. Cannot rule out segmental/subsegmental pulmonary artery embolism. No large central pulmonary embolism. Incidentally noted bilateral gynecomastia.
[2017-11-29 14:37] LABS: URINE BACTERIA MANY (NEG); URINE RBC 0 - 2 /hpf (0-2); URINE WBC 0 - 2 /hpf (0-6)
[2017-11-29 14:38] LABS: URINE AMORPHOUS SEDIMENT MODERATE; URINE EPITHELIAL CELLS 0 - 2 /hpf (0-5)
[2017-11-29 16:08] LABS: VENOUS BLOOD GAS BASE EXCESS 8.1 mmol/L (0.0-2.0); VENOUS BLOOD GAS PO2 83 mm/Hg (30-55); VENOUS BLOOD PH 7.58 (7.32-7.43)
--- NOTE | 2017-11-29 18:00 | CARD ---
APPROVED REPORT Date of service: 11/29/2017 EXAM: Two-dimensional and M-mode echocardiogram with Doppler and color Doppler. INDICATION FUO/PERSISTENT FEVER 2D DIMENSIONS Left Atrium (2D)4.0 (1.6-4.0cm)IVSd1.1 (0.7-1.1cm) LVDd3.8 (3.9-5.9cm)PWd1.1 (0.7-1.1cm) LVDs2.6 (2.5-4.0cm)FS (%) 30.3 % LVEF (%)58.4 (>50%) M-Mode DIMENSIONS Aortic Root3.20 (2.2-3.7cm)Aortic Cusp Exc.2.00 (1.5-2.0cm) Aortic Valve AoV Peak Tmlyqlyz091.0cm/Uzair Peak GR.11mmHg Mitral Valve E/A ratio0.0 TDI E/Lateral E'0.0E/Medial E'0.0 Pulmonary Valve PV Peak Jgywlmvq247.0cm/sPV Peak Grad.9mmHg Tricuspid Valve TR Peak [id number] [id number] Peak Gr.9mmHg [id number] LEFT VENTRICLE The left ventricle is normal size. There is normal left ventricular wall thickness. The left ventricular function is normal. The left ventricular ejection fraction is within the normal range. There is normal LV segmental wall motion. RIGHT VENTRICLE The right ventricle is normal size. The right ventricular systolic function is normal. ATRIA The left atrium size is normal. The right atrium size is normal. The interatrial septum is intact with no evidence for an atrial septal defect. AORTIC VALVE The aortic valve is thickened but opens well. MITRAL VALVE The mitral valve is normal in structure. TRICUSPID VALVE The tricuspid valve is normal in structure. There is mild tricuspid regurgitation. PULMONIC VALVE The pulmonic valve is not well visualized. GREAT VESSELS The aortic root is normal in size. The IVC is normal in size and collapses >50% with inspiration. PERICARDIAL EFFUSION There is no pleural effusion. There is no pericardial effusion. <Conclusion> Technically limited study. Chamber sizes are within normal limits. Normal LV systolic function. Mild TR. No vegetations seen, but not all valves optimally visualized. If suspicion for endocarditis is high, consider [facility] imaging.
[2017-11-29] MEDS: Meropenem IV 1 gm in NS 50 ML IVPB SCH (21:08)
[2017-11-30] MEDS: Meropenem IV 1 gm in NS 50 ML IVPB SCH ×3 (05:15→21:35)
[2017-11-30] MEDS: oxyCODONE 30 mg Immediate Release Tab PO PRN ×3 (05:28→22:17)
[2017-11-30 06:40] LABS: BASO # 0.01 K/mm3 (0.0-2.0); BASO % 0.1 % (0.0-3.0); EOS % 0.1 % (1.5-5.0); GRAN # 5.51 (1.4-6.5); HEMOGLOBIN 10.4 g/dL (14.0-18.0); LYMPH # 1.4 (1.2-3.4); LYMPH % 18.7 % (22.0-35.0); MEAN CELL VOLUME 89.2 fl (80.0-105.0); MEAN CORPUSCULAR HEMOGLOBIN 28.2 pg (25.0-35.0); MEAN CORPUSCULAR HGB CONC 31.6 g/dl (31.0-37.0); MEAN PLATELET VOLUME 8.8 fl (7.0-11.0); MONO # 0.5 (0.1-0.6); MONO % 7.1 % (1.0-6.0); RBC 3.69 10^6/uL (3.5-6.1); RED CELL DISTRIBUTION WIDTH 15.2 % (11.5-14.5); WHITE BLOOD COUNT 7.5 10^3/ul (4.5-11.0)
[2017-11-30 06:53] LABS: ALB/GLOB RATIO 0.9 (1.1-1.8); ALBUMIN 3.4 g/dL (3.0-4.8); ALT/SGPT 79 U/L (7-56); AST/SGOT 24 U/L (17-59); BLOOD UREA NITROGEN 14 mg/dL (7-21); CALCIUM 9.3 mg/dL (8.4-10.5); GFR NON-AFRICAN AMERICAN > 60
[2017-11-30 07:00] LABS: FREE T4 1.68 ng/dL (0.78-2.19); T4 10.6 ug/dL (5.5-11.0)
--- NOTE | 2017-11-30 08:25 | CP.PCM.PN ---
<Mercedes Dubon - Last Filed: 11/30/17 17:13> Subjective - Date & Time of Evaluation Date of Evaluation: 11/30/17 Time of Evaluation: 07:30 - Subjective Subjective: PGY-1 Mercedes Dubon D.O. medicine progress note for Dr. Clinton's service: Patient was seen and examined this morning. Patient is much more alert. He does not recall what occurred yesterday. He makes good contact. He is now consenting to a lumbar puncture to investigate why he is continuing to become febrile. He would like more information before consenting to a bone marrow biopsy. Objective - Vital Signs/Intake and Output Vital Signs (last 24 hours): Temp Pulse Resp BP Pulse Ox 98.7 F 113 H 20 138/96 H 96 11/30/17 00:00 11/30/17 05:52 11/30/17 00:00 11/30/17 00:00 11/30/17 00:00 Intake and Output: 11/30/17 11/30/17 06:59 18:59 Intake Total 690 Output Total 825 Balance -135 - Medications Medications: Current Medications Amlodipine Besylate (Norvasc) 10 mg PO DAILY [facility] Last Admin: 11/26/17 11:02 Dose: 10 mg Docusate Sodium (Colace) 100 mg PO TID [facility] Last Admin: 11/29/17 18:40 Dose: 100 mg Enoxaparin Sodium (Lovenox) 40 mg SC DAILY [facility]; Protocol Last Admin: 11/29/17 10:16 Dose: 40 mg Famotidine (Pepcid) 20 mg PO 1000 [facility] Last Admin: 11/29/17 10:17 Dose: 20 mg Meropenem (Merrem Iv 1 Gm Premix) 50 mls @ 100 mls/hr IVPB Q8 [facility]; Protocol Last Admin: 11/30/17 05:15 Dose: 100 mls/hr Vancomycin HCl (Vancomycin 1gm) 1 gm in 250 mls @ 167 mls/hr IVPB Q12H [facility]; Protocol Last Admin: 11/29/17 21:09 Dose: 167 mls/hr Ibuprofen (Motrin Tab) 600 mg PO Q6H PRN PRN Reason: mild pain or fever >100.4 Lisinopril (Zestril) 20 mg PO BID [facility] Last Admin: 11/26/17 18:22 Dose: 20 mg Methimazole (Tapazole) 10 mg PO DAILY [facility] Last Admin: 11/29/17 10:17 Dose: 10 mg Nystatin (Nystop Topical Powder) 0 gm TOP BID [facility] Last Admin: 11/29/17 18:35 Dose: 1 applic Oxycodone HCl (Oxycodone Immediate Release Tab) 30 mg PO Q6 PRN PRN Reason: Pain, severe (8-10) Last Admin: 11/30/17 05:28 Dose: 30 mg Propranolol HCl (Inderal) 20 mg PO TID [facility] Last Admin: 11/29/17 18:40 Dose: 20 mg Risperidone (Risperdal Tab) 0.5 mg PO BID [facility]; Protocol Last Admin: 11/29/17 18:40 Dose: 0.5 mg Risperidone (Risperdal Tab) 0.5 mg PO HS [facility]; Protocol Last Admin: 11/29/17 21:08 Dose: 0.5 mg - Labs Labs: 11/30/17 06:00 11/30/17 06:00 - Constitutional Appears: Non-toxic, No Acute Distress - Head Exam Head Exam: ATRAUMATIC, NORMAL INSPECTION - Eye Exam Eye Exam: EOMI, Normal appearance - ENT Exam ENT Exam: Mucous Membranes Moist, Normal Exam - Neck Exam Neck Exam: Normal Inspection, Tenderness - Respiratory Exam Respiratory Exam: Clear to Ausculation Bilateral, NORMAL BREATHING PATTERN Additional comments: 2L O2 via NC - Cardiovascular Exam Cardiovascular Exam: Tachycardia, REGULAR RHYTHM, +S1, +S2. absent: Murmur - GI/Abdominal Exam GI & Abdominal Exam: Soft, Normal Bowel Sounds. absent: Tenderness - Rectal Exam Rectal Exam: Deferred - Extremities Exam Extremities Exam: absent: Pedal Edema Additional comments: atrophied - Back Exam Back Exam: paraspinal tenderness Additional comments: well-healed vertical midline surgical scar - Neurological Exam Neurological Exam: Alert, Awake, CN II-XII Intact, Oriented x3. absent: Normal Gait - Psychiatric Exam Psychiatric exam: Flat Affect, Normal Mood - Skin Skin Exam: Dry, Intact, Normal Color, Warm Assessment and Plan - Assessment and Plan (Free Text) Assessment: Patient is a 37 year old male with a PMH of cervical radiculopathy w/ herniated disc, cervical spondylosis w/ myelopathy, thoracic spondylosis s/p extensive spinal surgeries, and depression vs schizophrenia spectrum under hospital [facility] for AMS. Admitted for delirium 2/2 to polypharmacy, including chronic multiple opiates usage, which has resolved and he is now at baseline mental status. Patient has spiked fevers during hospital course possible due to hyperthyroidism; ruled out infectious causes except patient not consenting to LP. Also, patient has mod-severe muscle atrophy due to prolonged hospital stay, requiring physical therapy. Patient developed increased sinus tachycardia and was transferred to remote [facility] on 11/29. Will repeat sepsis work-up and thyroid studies. Patient also noted to intermittently have auditory and visual hallucinations- observed to be responding to internal stimuli. Patient seems to have a blank stare and become altered with each fever. His mental status resolves when afebrile. Plan: Fevers- suspect 2/2 hyperthyroidism vs central vs [employer] infection/meningitis - Last fever was on 11/29 102.7 F - Will obtain rectal temperature for future oral temperatures >100.4 - Urine Cx negative (11/26) - Sputum Cx negative (11/25) - Blood Cx negative x2 (11/25) - LE Dopplers (11/23): no DVT - CXR (11/25): no active disease - RPR negative - HIV negative - JACI negative - TB quantiferon negative - Procal <0.05 - No leukocytosis - Echo: EF 58%, no vegetations seen but limited study with poor visualization of valves - Motrin 600 mg PO Q6H PRN - Meropenem 1 g IV Q8H (started 11/25) - Vancomycin 1 g IV Q12H (started 11/25) - ID consulted (Abraham) - Hematology/oncology consulted (Rachel) Delirium, intermittent- initially suspected 2/2 to polypharmacy/multiple opiates, underlying psychiatric disorder (schizophrenia spectrum vs depression), patient continues to intermittently hallucinate, so cause is likely multifactorial (thyroid, fevers) - Discontinued opiates, benzos, stimulants - Only restarted oxycodone 30 mg PO Q6H PRN - Risperdal 0.5 mg PO BID, 0.5 mg PO QHS - Discontinued Ativan - Neurology consulted (Sukhwinder/Cam)- will attempt LP tomorrow - Psychiatry consulted (Taylor)- added scheduled Risperdal Sinus tachycardia- 2/2 to hyperthyroidism, fevers, ?PE - 11/29 HR 160s- given Lopressor 5 mg IVP x3, improved to 110s - EKG: no ST changes - CTA chest: Cannot rule out segmental/subsegmental pulmonary artery embolism. No large central pulmonary embolism. - V/Q scan: no PE - Monitor on remote telemetry - [facility] Hyperthyroidism - Propranolol 20 mg PO TID - Methimazole 10 mg PO daily - Endocrinology consulted ([facility]) Muscle atrophy- 2/2 Immobility and Multiple Spinal Surgeries - Encourage OOB to chair with assistance - PT- poor progress, patient putting in minimal effort - Discussed with patient's mother to encourage patient to ambulate and participate with PT Chronic back pain- s/p multiple back surgeries in 2016 - Motrin 600 mg PO Q6H PRN - Oxycodone 30 mg PO Q6H PRN - Colace 100 mg PO TID - Miralax 17 g PO BID PRN - Encourage OOB to chair - PT- poor progress, patient putting in minimal effort HTN- presently well controlled - Propranolol 20 mg PO TID - Lisinopril 20 mg PO BID - Norvasc 10 mg PO daily Transaminitis, stable - Monitor daily - Avoid hepatotoxic medications IVF: not indicated Diet: regular GI ppx: Pepcid 20 mg PO daily VTE ppx: Lovenox 40 mg SC daily Code status: full code Dispo: Continue with Physical Therapy- rec FREDRICK. Continue work-up for fevers. Case discussed with attending, Dr. Clinton. <Denia Clinton - Last Filed: 12/01/17 16:17> Objective - Vital Signs/Intake and Output Vital Signs (last 24 hours): Temp Pulse Resp BP Pulse Ox 100.4 F H 99 H 22 139/93 H 96 12/01/17 06:00 12/01/17 14:59 12/01/17 06:00 12/01/17 14:59 12/01/17 06:00 Intake and Output: 12/01/17 12/01/17 06:59 18:59 Intake Total 240 Output Total 700 Balance -460 - Medications Medications: Current Medications Amlodipine Besylate (Norvasc) 10 mg PO DAILY [facility] Last Admin: 12/01/17 09:33 Dose: 10 mg Docusate Sodium (Colace) 100 mg PO TID [facility] Last Admin: 12/01/17 15:00 Dose: Not Given Enoxaparin Sodium (Lovenox) 40 mg SC DAILY [facility]; Protocol Last Admin: 12/01/17 09:32 Dose: 40 mg Famotidine (Pepcid) 20 mg PO 1000 [facility] Last Admin: 12/01/17 09:33 Dose: 20 mg Meropenem (Merrem Iv 1 Gm Premix) 50 mls @ 100 mls/hr IVPB Q8 [facility]; Protocol Last Admin: 12/01/17 15:01 Dose: 100 mls/hr Vancomycin HCl (Vancomycin 1gm) 1 gm in 250 mls @ 167 mls/hr IVPB Q12H [facility]; Protocol Last Admin: 12/01/17 09:35 Dose: 167 mls/hr Ibuprofen (Motrin Tab) 600 mg PO Q6H PRN PRN Reason: mild pain or fever >100.4 Last Admin: 12/01/17 05:49 Dose: 600 mg Lisinopril (Zestril) 20 mg PO BID [facility] Last Admin: 12/01/17 09:33 Dose: 20 mg Methimazole (Tapazole) 10 mg PO DAILY [facility] Last Admin: 12/01/17 09:33 Dose: 10 mg Nystatin (Nystop Topical Powder) 0 gm TOP BID [facility] Last Admin: 11/30/17 19:10 Dose: Not Given Oxycodone HCl (Oxycodone Immediate Release Tab) 30 mg PO Q6 PRN PRN Reason: Pain, severe (8-10) Last Admin: 12/01/17 03:44 Dose: 30 mg Propranolol HCl (Inderal) 20 mg PO TID [facility] Last Admin: 12/01/17 14:59 Dose: 20 mg Risperidone (Risperdal Tab) 0.5 mg PO BID [facility]; Protocol Last Admin: 12/01/17 09:33 Dose: 0.5 mg Risperidone (Risperdal Tab) 0.5 mg PO HS [facility]; Protocol Last Admin: 11/30/17 21:35 Dose: 0.5 mg - Labs Labs: 12/01/17 07:00 12/01/17 07:00 Attending/Attestation - Attestation I have personally seen and examined this patient.: Yes I have fully participated in the care of the patient.: Yes I have reviewed all pertinent clinical information, including history, physical exam and plan: Yes Notes (Text): Patient seen and examined by me at 10:50AM with resident 11/30/17. Case including HPI, physical exam, and assessment and plan discussed with resident. Agree with above with following additions/corrections. Patient is a 37 year old male with past medical history that is significant for cervical radiculopathy with herniated disc, cervical spondylosis with myelopathy, thoracic spondylosis, and depression that presented to the emergency room with visual hallucinations. Patient states he is feeling ok. Patient is more awake and alert today. States he is having pain but is unable to state where pain is. Patient is agreeing to lumbar puncture. Afebrile so far today. Denies any chest pain or shortness of breath. No headaches or dizziness. No dysuria. No nausea, vomiting, or abdominal pain. Physical exam: General: Awake and alert sitting up in bed in no acute distress HEENT: Normocephalic atraumatic. Pupils equal reactive. No scleral icterus. Oropharynx is pink and moist. Poor dentition. Neck is supple. Cardiovascular: Tachycardic S1, S2. No murmurs, rubs, or gallops appreciated Pulmonary: Normal respiratory effort. No rhonchi, rales or wheezing appreciated. Gastrointestinal: Soft, nondistended. Nontender. Positive bowel sounds all 4 quadrants, no guarding. Musculoskeletal: Moves all extremities, no calf tenderness, no edema appreciated. Positive cervical spine tenderness. Central nervous system: Awake and alert. Oriented x2. Dermatologic: Skin warm and dry. Positive well healed scar on back. Assessment and plan: Patient is a 37 year old male with past medical history that is significant for cervical radiculopathy with herniated disc, cervical spondylosis with myelopathy, thoracic spondylosis, and depression that presented to the emergency room with visual hallucinations. 1. Fever. Unclear etiology. Has intermittent fevers. ID following, recommendations appreciated. UA with no infection. Continue vancomycin and meropenem. Blood cultures with no growth. Urine cultures with no growth. Patient now agreeing to spinal tap, will discuss with neurology. MRI brain negative for infection. CT abdomen/pelvis/chest negative for infection. Upper and lower extremity venous Dopplers negative for DVT. Chest x-ray negative for infection. RPR nonreactive. Leukocytosis resolved. 2. Tachycarida. Likely secondary to fever and hyperthyroidism. CTA chest per radiologist shows technically limited examination, cannot rule out segmental/subsegmental pulmonary artery embolism, no large central pulmonary embolism, incidentally noted bilateral gynecomastia. Troponins is within normal limits. Cardiology consulted, recommendations appreciated. Patient placed on therapeutic Lovenox for now. Follow-up VQ scan. 3. Sinus positive on bus driver/monitor. Cardiology consulted, recommendations appreciated. 2-D echo per mud boss shows technically limited study, chamber sizes are within normal limits, normal LV systolic function, mild TR, no vegetations seen but not all valves optimally visualized. Continue to monitor on telemetry. 4. Acute delirium. Appears to be secondary to fevers. Waxes and wanes. Continue Ativan as needed. Continue Risperdal. Continue oxycodone. 5. Leukocytosis. Resolved. Continue to monitor. 6. Hyperthyroidism. Endocrinology following, recommendations appreciated. Continue propranolol and methimazole. 7. Essential hypertension. Continue lisinopril, Norvasc, and propanolol. 8. Constipation. Continue Colace and Miralax. 9. Hypokalemia. Resolved. Continue to monitor. Case discussed in detail with the patient regarding current diagnosis and treatment plan.
[2017-11-30 09:23] LABS: IRON 46 ug/dL (45-180)
[2017-11-30 09:33] LABS: % IRON SATURATION 16 % (20-55); TOTAL IRON BINDING CAPACITY 281 ug/dL (261-462)
[2017-11-30 10:23] LABS: ARTERIAL BLOOD GAS HCO3 31.9 mmol/L (21-28); ARTERIAL BLOOD GAS HEMOGLOBIN 10.6 g/dL (11.7-17.4); ARTERIAL BLOOD GAS O2 CAPACITY 14.8 mL/dl (16-24); ARTERIAL BLOOD GAS O2 CONTENT 14.7 ML/dl (15-23); ARTERIAL BLOOD GAS O2 SAT 99.4 % (95-98); ARTERIAL BLOOD GAS PCO2 40 mm/Hg (35-45); ARTERIAL BLOOD GAS PH 7.51 (7.35-7.45); ARTERIAL BLOOD GAS TCO2 33.1 mmol.L (22-28)
[2017-11-30] MEDS: Enoxaparin 40 mg Syringe SC SCH (10:51)
[2017-11-30] MEDS: methIMAzole 5 MG TAB PO SCH (10:51)
[2017-11-30] MEDS: Vancomycin 1gm in NS 250ml 1 GM/250 ML BAG IVPB SCH ×2 (10:53→21:36)
[2017-11-30] MEDS: Nystatin 100,000 Units/gm Topical Pow(15 gm) TOP SCH ×2 (10:54→19:10)
--- NOTE | 2017-11-30 13:03 | CON ---
DATE: 11/30/2017HISTORY OF PRESENT ILLNESS: The patient is a 37-year-old male, who has a history of chronic low back pain, status post spinal surgery in the past, who lives with his mother, who was brought in because of visual hallucinations. The patient was on methadone and drug screen was positive for methadone, opiates and benzodiazepines. Today, the patient was noted to be in sinus tachycardia and had 2, then another 2 second pauses. The patient denies any chest pain or palpitation or dizziness. SOCIAL HISTORY: Former smoker. He lives with his mom. MEDICATIONS: Colace 100 mg t.i.d., Inderal 20 mg t.i.d., Lovenox 40 mg subcutaneously once a day, meropenem 1 g intravenously every 8 hours, ibuprofen 600 mg every 6 hours p.r.n. for moderate pain, Norvasc 10 mg once a day, Lasix 20 mg once a day, oxycodone 30 mg p.o. every 6 hours p.r.n., ,vancomycin 1 g intravenously every 12 hours, Zestril 20 mg twice a day, Tapazole 10 mg once a day. PAST MEDICAL HISTORY: Chronic low back pain and lower spinal surgery. Hyperthyroidism. PHYSICAL EXAMINATION: GENERAL: The patient is a young middle-aged male, who is sedated, does not appear to be in any distress. VITAL SIGNS: Blood pressure , heart rate 115, temperature 97.8, respirations 19. HEENT: Normocephalic. CHEST: Clear. HEART: S1 and S2 regular. EXTREMITIES: No edema. LABORATORY DATA: Today's hemoglobin and hematocrit 10.4 and 32.9. White count and platelet count are within normal limit. Today's SMA-7 is within normal limits except for glucose of 113 and creatinine 0.4. Troponin less than 0.01. Sodium 137, potassium 4.9, chloride 108, CO2 of 20, glucose 126, BUN 3. TSH level is 0.15, which is below normal. JACI screen is negative. Yesterday's EKG revealed sinus tachycardia with short [place] interval at rate of 155. Prolonged QTc interval. Echocardiography study revealed normal chamber size, normal left ventricular systolic function. No vegetation seen. Chest CT angio, technically limited study. Cannot rule out segmental/subsegmental pulmonary emboli. No large central pulmonary embolus. Venous Doppler of lower extremity was done twice on 11/21/2017 and 11/23/2017 and was negative. Brain MRI, unremarkable pre and post contrast enhanced MRI of the brain. ASSESSMENT: 1. Sinus tachycardia. 2. Questionable pulmonary embolism. 3. Altered mental status on admission. 4. Hyperthyroidism. RECOMMENDATIONS: Continue current Colace, Inderal, subcutaneous Lovenox, IV meropenem, Norvasc 10 mg once a day, Pepcid 20 mg once a day, Tapazole 10 mg once a day, vancomycin 1 g intravenously every 12 hours, Zestril 20 mg twice a day. We can either repeat CT angio study or ventilation perfusion scan and start the patient on therapeutic regimen of subcutaneous Lovenox if there is no contraindication. Stiven Sierra MD
[2017-11-30 13:08] LABS: FOLATE 6.1 ng/mL
--- NOTE | 2017-11-30 15:36 | NM ---
Date of service: 11/30/2017 COMPARISON: 11/29/2017. CT pulmonary angiogram. 11/25/2017 single-view chest TECHNIQUE: 30.0 mCi technetium 99-m DTPA aerosol. 2.3 mCI technetium 99-m MAA administered intravenously. FINDINGS: VENTILATION COMPONENT: Normal. PERFUSION COMPONENT: Normal. IMPRESSION: Negative ventilation perfusion scan for pulmonary embolism.
[2017-11-30] MEDS ORDERED: Enoxaparin 120 mg Syringe SC SCH (22:00)
--- NOTE | 2017-12-01 00:30 | PN ---
DATE: 11/30/2017 SUBJECTIVE: Patient seen earlier this morning. PHYSICAL EXAMINATION: VITAL SIGNS: His temperature is 97, his last temperature was 103 on ; the blood pressure is 125/80; respiratory rate 20. HEENT: Unremarkable. NECK: Supple. LUNGS: Have decreased breath sounds. HEART: Normal S1 and S2. ABDOMEN: Soft. LABORATORY EXAMINATION: Reveals a white count of 7.5, BUN of 14, creatinine of 0.4. Urinalysis is noted and microbiology is noted. Immunology is noted. JACI screen is negative and serology is negative. Microbiology, no growth. Review of orders reveals the patient to be on meropenem and vancomycin. ASSESSMENT AND PLAN: This is a 37-year-old male with systemic inflammatory response syndrome, fever of unknown origin, workup in progress. Autoimmune workup pending. Delirium is resolved; depression. Currently on vancomycin and meropenem. We will follow with final culture results. Patient also had a lung scan today, nuclear scan, which is negative for pulmonary embolism. Had a CT of the chest yesterday. We will follow with you. Arias Aviles MD
[2017-12-01 01:21] LABS: ANCA SCREEN NEGATIVE (NEGATIVE)
[2017-12-01] MEDS: oxyCODONE 30 mg Immediate Release Tab PO PRN (03:44)
[2017-12-01] MEDS: Meropenem IV 1 gm in NS 50 ML IVPB SCH ×4 (05:50→21:41)
[2017-12-01] MEDS ORDERED: Labetalol 5 mg/ml Inj 20ML IV ONE (06:00)
[2017-12-01 07:30] LABS: BASO # 0.01 K/mm3 (0.0-2.0); BASO % 0.1 % (0.0-3.0); GRAN # 8.1 (1.4-6.5); GRAN % 77.3 % (50.0-68.0); HEMOGLOBIN 10.2 g/dL (14.0-18.0); LYMPH # 1.4 (1.2-3.4); LYMPH % 13.2 % (22.0-35.0); MEAN CELL VOLUME 88.4 fl (80.0-105.0); MEAN CORPUSCULAR HEMOGLOBIN 28.3 pg (25.0-35.0); MEAN PLATELET VOLUME 8.7 fl (7.0-11.0); MONO % 9.4 % (1.0-6.0); RBC 3.61 10^6/uL (3.5-6.1); RED CELL DISTRIBUTION WIDTH 14.9 % (11.5-14.5); WHITE BLOOD COUNT 10.5 10^3/ul (4.5-11.0)
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
[2017-12-01 07:41] LABS: ALB/GLOB RATIO 0.9 (1.1-1.8); ALBUMIN 3.3 g/dL (3.0-4.8); ALT/SGPT 69 U/L (7-56); AST/SGOT 22 U/L (17-59); BLOOD UREA NITROGEN 12 mg/dL (7-21); CALCIUM 8.8 mg/dL (8.4-10.5); GFR NON-AFRICAN AMERICAN > 60
[2017-12-01] MEDS ORDERED: Potassium Chloride 20 mEq ER Tab PO ONE (08:00)
[2017-12-01] MEDS: Enoxaparin 40 mg Syringe SC SCH (09:32)
[2017-12-01] MEDS: methIMAzole 5 MG TAB PO SCH (09:33)
[2017-12-01] MEDS: Vancomycin 1gm in NS 250ml 1 GM/250 ML BAG IVPB SCH ×2 (09:35→21:41)
--- NOTE | 2017-12-01 11:06 | CP.PCM.CON ---
<Butch Pittman - Last Filed: 12/01/17 20:11> History of Present Illness - History of Present Illness History of Present Illness: Butch Pittman PGY2 Heme/Onc Consult Note for Dr. Ramos Mr. Haro is a 37 year old male with a PMH of cervical radiculopathy w/ sheldon iated disc, cervical spondylosis w/ myelopathy, thoracic spondylosis and depression who was admitted for acute delerium and visual hallucinations. Since time of admission, the patient has remained altered, which could be his baseline, but with episodes of spiking fevers. Infectious causes have been ruled out by the ID team, and further workup is pending to rule out rheumatoid and neurologic causes. Patient has been on antibiotics since time of admission, but blood and urine cultures have been negative multiple times. Heme/Onc is consulted for a bone marrow biopsy. 12-pt ROS was attempted but limited due to patient's inappropriate answers, the following information was obtained from chart. PMH: as above PSH: anterior cervical discectomy and fusion of C6-C7 (03/2015). Partial vertebrectomy of C6-C7, discectomy of C6-C7 and interbody fusion of C6-C7 w/ PEEK and bone, plating and instrucmention from C6-7 (03/2015). And T2-4 thoracic laminectomy w/ posterolateral fusion (12/2015) Meds: as per MAR Allergies: Erythromycin SHx: per natanael, former heavy tobacco smoker, currently uses vaporizer; denies EtOH and recreational drugs. 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, former shipyard work Review of Systems - Review of Systems Systems not reviewed;Unavailable: Altered Mental Status Past Patient History - Tetanus Immunizations Tetanus Immunization: Unknown - Past Medical History & Family History Past Medical History?: Yes - Past Social History Smoking Status: Never Smoked Alcohol: None Drugs: Opiates, Prescription medications Home Situation {Lives}: With Family - CARDIAC Hx Cardiac Disorders: No - PULMONARY Hx Respiratory Disorders: No - NEUROLOGICAL Hx Neurological Disorder: Yes (cervical and thoracic radiculopathy) - HEENT Hx HEENT Problems: No - RENAL Hx Chronic Kidney Disease: No - ENDOCRINE/METABOLIC Hx Endocrine Disorders: No - HEMATOLOGICAL/ONCOLOGICAL Hx Blood Disorders: No - INTEGUMENTARY Hx Dermatological Problems: No - MUSCULOSKELETAL/RHEUMATOLOGICAL Hx Back Pain: Yes Hx Degenerative Joint Disease: Yes Hx Falls: No Hx Herniated Disk: Yes - GASTROINTESTINAL Hx Gastrointestinal Disorders: No Hx Gastroesophageal Reflux: Yes Other/Comment: ACID REFLUX - GENITOURINARY/GYNECOLOGICAL Hx Genitourinary Disorders: No - PSYCHIATRIC Hx Psychophysiologic Disorder: Yes Hx Depression: Yes Hx Substance Use: No - SURGICAL HISTORY Hx Orthopedic Surgery: Yes (3 orthopedic sxs noted in HPI) - ANESTHESIA Hx Anesthesia: Yes Meds Allergies/Adverse Reactions: Allergies Allergy/AdvReac Type Severity Reaction Status Date / Time erythromycin base Allergy ITCHING Verified 11/05/17 23:35 duloxetine HCl AdvReac RASH Verified 11/05/17 23:35 [From Cymbalta] - Medications Medications: Current Medications Amlodipine Besylate (Norvasc) 10 mg PO DAILY [facility] Last Admin: 12/01/17 09:33 Dose: 10 mg Docusate Sodium (Colace) 100 mg PO TID [facility] Last Admin: 12/01/17 09:31 Dose: 100 mg Enoxaparin Sodium (Lovenox) 40 mg SC DAILY [facility]; Protocol Last Admin: 12/01/17 09:32 Dose: 40 mg Famotidine (Pepcid) 20 mg PO 1000 [facility] Last Admin: 12/01/17 09:33 Dose: 20 mg Meropenem (Merrem Iv 1 Gm Premix) 50 mls @ 100 mls/hr IVPB Q8 [facility]; Protocol Last Admin: 12/01/17 05:50 Dose: 100 mls/hr Vancomycin HCl (Vancomycin 1gm) 1 gm in 250 mls @ 167 mls/hr IVPB Q12H [facility]; Protocol Last Admin: 12/01/17 09:35 Dose: 167 mls/hr Ibuprofen (Motrin Tab) 600 mg PO Q6H PRN PRN Reason: mild pain or fever >100.4 Last Admin: 12/01/17 05:49 Dose: 600 mg Lisinopril (Zestril) 20 mg PO BID [facility] Last Admin: 12/01/17 09:33 Dose: 20 mg Methimazole (Tapazole) 10 mg PO DAILY [facility] Last Admin: 12/01/17 09:33 Dose: 10 mg Nystatin (Nystop Topical Powder) 0 gm TOP BID [facility] Last Admin: 11/30/17 19:10 Dose: Not Given Oxycodone HCl (Oxycodone Immediate Release Tab) 30 mg PO Q6 PRN PRN Reason: Pain, severe (8-10) Last Admin: 12/01/17 03:44 Dose: 30 mg Propranolol HCl (Inderal) 20 mg PO TID [facility] Last Admin: 12/01/17 09:32 Dose: 20 mg Risperidone (Risperdal Tab) 0.5 mg PO BID [facility]; Protocol Last Admin: 12/01/17 09:33 Dose: 0.5 mg Risperidone (Risperdal Tab) 0.5 mg PO HS [facility]; Protocol Last Admin: 11/30/17 21:35 Dose: 0.5 mg Physical Exam - Constitutional Appears: Non-toxic, No Acute Distress, Unkempt - Head Exam Head Exam: ATRAUMATIC, NORMAL INSPECTION - Eye Exam Eye Exam: Nystagmus (both vertical and horizontal ) - ENT Exam ENT Exam: Mucous Membranes Moist - Neck Exam Neck exam: Positive for: Normal Inspection - Respiratory Exam Respiratory Exam: NORMAL BREATHING PATTERN. absent: Rales, Rhonchi, Wheezes - Cardiovascular Exam Cardiovascular Exam: Tachycardia, +S1, +S2 - GI/Abdominal Exam GI & Abdominal Exam: Normal Bowel Sounds, Soft. absent: Distended, Tenderness - Extremities Exam Extremities exam: Positive for: normal inspection. Negative for: pedal edema - Back Exam Back exam: NORMAL INSPECTION - Neurological Exam Neurological exam: Altered, CN II-XII Intact - Skin Skin Exam: Normal Color, Warm Results - Vital Signs Recent Vital Signs: Last Vital Signs Temp 100.4 F H 12/01/17 06:00 Pulse 102 H 12/01/17 09:32 Resp 22 12/01/17 06:00 BP 139/93 H 12/01/17 09:33 Pulse Ox 96 12/01/17 06:00 - Labs Result Diagrams: 12/01/17 07:00 12/01/17 07:00 Labs: Laboratory Results - last 24 hr 11/28/17 11/28/17 11/30/17 12:04 12:30 06:00 WBC RBC Hgb Hct MCV MCH MCHC RDW Plt Count MPV Gran % Lymph % (Auto) Upton % (Auto) Eos % (Auto) Baso % (Auto) Gran # Lymph # (Auto) [place]pton # (Auto) Eos # (Auto) Baso # (Auto) Sodium Potassium Chloride Carbon Dioxide Anion Gap BUN Creatinine Est GFR ( Amer) Est GFR (Non-Af Amer) Random Glucose Calcium Phosphorus Magnesium Transferrin Ferritin Total Bilirubin AST ALT Alkaline Phosphatase Total Protein Albumin Globulin Albumin/Globulin Ratio Vitamin B12 Folate Free T3 pg/mL ANCA Screen Negative c-ANCA Titer TNP Proteinase 3 (PR3) <1.0 p-ANCA Titer TNP Atypical p-ANCA Titer TNP Myeloperoxidase Ab <1.0 Lyme Disease Screen <0.90 TB Test (QFT) Nil 0.09 TB Test Mitogen - Nil 3.55 TB Test TB - Nil <0.00 TB Test (QFT) Negative 11/30/17 11/30/17 11/30/17 06:00 08:37 08:37 WBC RBC Hgb Hct MCV MCH MCHC RDW Plt Count MPV Gran % Lymph % (Auto) Upton % (Auto) Eos % (Auto) Baso % (Auto) Gran # Lymph # (Auto) [place]pton # (Auto) Eos # (Auto) Baso # (Auto) Sodium Potassium Chloride Carbon Dioxide Anion Gap BUN Creatinine Est GFR ( Amer) Est GFR (Non-Af Amer) Random Glucose Calcium Phosphorus Magnesium Transferrin 202.43 L Ferritin 154.0 Total Bilirubin AST ALT Alkaline Phosphatase Total Protein Albumin Globulin Albumin/Globulin Ratio Vitamin B12 438 Folate 6.1 Free T3 pg/mL 2.56 L ANCA Screen c-ANCA Titer Proteinase 3 (PR3) p-ANCA Titer Atypical p-ANCA Titer Myeloperoxidase Ab Lyme Disease Screen TB Test (QFT) Nil TB Test Mitogen - Nil TB Test TB - Nil TB Test (QFT) 12/01/17 12/01/17 07:00 07:00 WBC 10.5 D RBC 3.61 Hgb 10.2 L Hct 31.9 L MCV 88.4 MCH 28.3 MCHC 32.0 RDW 14.9 H Plt Count 257 MPV 8.7 Gran % 77.3 H Lymph % (Auto) 13.2 L Upton % (Auto) 9.4 H Eos % (Auto) 0.0 L Baso % (Auto) 0.1 Gran # 8.10 H Lymph # (Auto) 1.4 Upton # (Auto) 1.0 H Eos # (Auto) 0.0 Baso # (Auto) 0.01 Sodium 136 Potassium 3.4 L Chloride 97 L Carbon Dioxide 29 Anion Gap 14 BUN 12 Creatinine 0.4 L Est GFR ( Amer) > 60 Est GFR (Non-Af Amer) > 60 Random Glucose 126 H Calcium 8.8 Phosphorus 3.6 Magnesium 1.9 Transferrin Ferritin Total Bilirubin 0.3 AST 22 ALT 69 H Alkaline Phosphatase 59 Total Protein 6.8 Albumin 3.3 Globulin 3.5 Albumin/Globulin Ratio 0.9 L Vitamin B12 Folate Free T3 pg/mL ANCA Screen c-ANCA Titer Proteinase 3 (PR3) p-ANCA Titer Atypical p-ANCA Titer Myeloperoxidase Ab Lyme Disease Screen TB Test (QFT) Nil TB Test Mitogen - Nil TB Test TB - Nil TB Test (QFT) Assessment & Plan - Assessment and Plan (Free Text) Assessment: 37 year old male with a PMH of cervical radiculopathy w/ herniated disc, cervical spondylosis w/ myelopathy, thoracic spondylosis and depression admitted for acute delerium, found to have episodes of spiking fevers. Infectious, metabolic, rheumatologic, neurologic and psych causes are being worked up by medical team and specialists. Heme/Onc consulted for bone marrow biopsy to investigate fever of unknown origin to r/o possibly malignancy. Plan: - Bone marrow biopsy planned for Tuesday12/05/17 in the afternoon - On Tuesday, patient can have normal breakfast and lunch then be switched to [facility] - Continue to medically optimize patient - Will continue to follow patient while in hospital - Further recs per Dr. Ramos Case was reviewed and discussed with attending, Dr. Rachel Pittman PGY2 <Silvia Ramos P - Last Filed: 12/01/17 23:02> Meds - Medications Medications: Current Medications Amlodipine Besylate (Norvasc) 10 mg PO DAILY [facility] Last Admin: 12/01/17 09:33 Dose: 10 mg Docusate Sodium (Colace) 100 mg PO BID [facility] Enoxaparin Sodium (Lovenox) 40 mg SC DAILY [facility]; Protocol Last Admin: 12/01/17 09:32 Dose: 40 mg Famotidine (Pepcid) 20 mg PO 1000 [facility] Last Admin: 12/01/17 09:33 Dose: 20 mg Meropenem (Merrem Iv 1 Gm Premix) 50 mls @ 100 mls/hr IVPB Q8 [facility]; Protocol Last Admin: 12/01/17 21:41 Dose: 100 mls/hr Vancomycin HCl (Vancomycin 1gm) 1 gm in 250 mls @ 167 mls/hr IVPB Q12H [facility]; P rotocol Last Admin: 12/01/17 21:41 Dose: 167 mls/hr Ibuprofen (Motrin Tab) 600 mg PO Q6H PRN PRN Reason: mild pain or fever >100.4 Last Admin: 12/01/17 05:49 Dose: 600 mg Lisinopril (Zestril) 20 mg PO BID [facility] Last Admin: 12/01/17 17:57 Dose: 20 mg Methimazole (Tapazole) 10 mg PO DAILY [facility] Last Admin: 12/01/17 09:33 Dose: 10 mg Nystatin (Nystop Topical Powder) 0 gm TOP BID [facility] Last Admin: 11/30/17 19:10 Dose: Not Given Oxycodone HCl (Oxycodone Immediate Release Tab) 30 mg PO Q6 PRN PRN Reason: Pain, severe (8-10) Last Admin: 12/01/17 03:44 Dose: 30 mg Propranolol HCl (Inderal) 20 mg PO TID [facility] Last Admin: 12/01/17 17:58 Dose: 20 mg Risperidone (Risperdal Tab) 0.5 mg PO BID [facility]; Protocol Last Admin: 12/01/17 17:57 Dose: 0.5 mg Risperidone (Risperdal Tab) 0.5 mg PO HS [facility]; Protocol Last Admin: 12/01/17 21:42 Dose: 0.5 mg Results - Vital Signs Recent Vital Signs: Last Vital Signs Temp 98.2 F 12/01/17 17:41 Pulse 91 H 12/01/17 18:00 Resp 19 12/01/17 17:41 BP 120/79 12/01/17 17:57 Pulse Ox 95 12/01/17 17:41 - Labs Result Diagrams: 12/01/17 07:00 12/01/17 07:00 Labs: Laboratory Results - last 24 hr 11/28/17 11/30/17 12/01/17 12:30 06:00 07:00 WBC 10.5 D RBC 3.61 Hgb 10.2 L Hct 31.9 L MCV 88.4 MCH 28.3 MCHC 32.0 RDW 14.9 H Plt Count 257 MPV 8.7 Gran % 77.3 H Lymph % (Auto) 13.2 L Upton % (Auto) 9.4 H Eos % (Auto) 0.0 L Baso % (Auto) 0.1 Gran # 8.10 H Lymph # (Auto) 1.4 Upton # (Auto) 1.0 H Eos # (Auto) 0.0 Baso # (Auto) 0.01 Sodium Potassium Chloride Carbon Dioxide Anion Gap BUN Creatinine Est GFR ( Amer) Est GFR (Non-Af Amer) Random Glucose Calcium Phosphorus Magnesium Total Bilirubin AST ALT Alkaline Phosphatase Total Protein Albumin Globulin Albumin/Globulin Ratio ANCA Screen Negative Proteinase 3 (PR3) <1.0 Myeloperoxidase Ab <1.0 Lyme Disease Screen <0.90 Lyme IgG 18 kDa Band Nonreactive Lyme IgG 23 kDa Band Nonreactive Lyme IgG 28 kDa Band Nonreactive Lyme IgG 30 kDa Band Nonreactive Lyme IgG 39 kDa Band Nonreactive Lyme IgG 41 kDa Band Nonreactive Lyme IgG 45 kDa Band Nonreactive Lyme IgG 58 kDa Band Nonreactive Lyme IgG 66 kDa Band Reactive H Lyme IgG 93 kDa Band Nonreactive Lyme IgG W Blot Interp Negative Lyme IgM 23 kDa Band Nonreactive Lyme IgM 39 kDa Band Nonreactive Lyme IgM 41 kDa Band Nonreactive Lyme IgM W Blot Interp Negative CMV IgG Ab <0.60 CMV IgM Ab <30.00 12/01/17 07:00 WBC RBC Hgb Hct MCV MCH MCHC RDW Plt Count MPV Gran % Lymph % (Auto) [place] % (Auto) Eos % (Auto) Baso % (Auto) Gran # Lymph # (Auto) [place]pton # (Auto) Eos # (Auto) Baso # (Auto) Sodium 136 Potassium 3.4 L Chloride 97 L Carbon Dioxide 29 Anion Gap 14 BUN 12 Creatinine 0.4 L Est GFR ( Amer) > 60 Est GFR (Non-Af Amer) > 60 Random Glucose 126 H Calcium 8.8 Phosphorus 3.6 Magnesium 1.9 Total Bilirubin 0.3 AST 22 ALT 69 H Alkaline Phosphatase 59 Total Protein 6.8 Albumin 3.3 Globulin 3.5 Albumin/Globulin Ratio 0.9 L ANCA Screen Proteinase 3 (PR3) Myeloperoxidase Ab Lyme Disease Screen Lyme IgG 18 kDa Band Lyme IgG 23 kDa Band Lyme IgG 28 kDa Band Lyme IgG 30 kDa Band Lyme IgG 39 kDa Band Lyme IgG 41 kDa Band Lyme IgG 45 kDa Band Lyme IgG 58 kDa Band Lyme IgG 66 kDa Band Lyme IgG 93 kDa Band Lyme IgG W Blot Interp Lyme IgM 23 kDa Band Lyme IgM 39 kDa Band Lyme IgM 41 kDa Band Lyme IgM W Blot Interp CMV IgG Ab CMV IgM Ab Attending/Attestation - Attestation I have personally seen and examined this patient.: Yes I have fully participated in the care of the patient.: Yes I have reviewed all pertinent clinical information: Yes
[2017-12-01 11:29] LABS: 23 KD (IGG) BAND Nonreactive
--- NOTE | 2017-12-01 23:33 | PN ---
DATE: 12/01/2017 SUBJECTIVE: Patient denies any chest pain. He was able to have his breakfast today. PHYSICAL EXAMINATION: VITAL SIGNS: Blood pressure 120/79, heart rate 95, temperature 98.2, respirations 19. HEENT: Normocephalic. CHEST: Clear. HEART: S1 and S2 regular. EXTREMITIES: Trace edema. DIAGNOSTIC DATA: A ventilation perfusion lung scan revealed negative V/Q scan for pulmonary embolism. LABORATORY DATA: Sodium 136, potassium 3.4, chloride 97, CO2 29, glucose 126, BUN 12, creatinine 0.4. ASSESSMENT: 1. Sinus tachycardia. 2. Hyperthyroidism. 3. Hypokalemia. 4. Chronic low back pain. RECOMMENDATIONS: Continue Inderal 20 mg three times a day, Lovenox 40 mg subcutaneous once a day, IV meropenem at 1 g every 8 hours, Norvasc at 10 mg once a day, methimazole at 10 mg daily, Zestril 20 mg twice a day. Stiven Sierra MD
--- NOTE | 2017-12-02 01:49 | PN ---
DATE: 12/01/2017 SUBJECTIVE: The patient was seen in bed in room 376. Continuing to have fevers. PHYSICAL EXAMINATION: VITAL SIGNS: Temperature is 98, T-max is 100.4, blood pressure is 120/70, respiratory rate of 18, heart rate of 95. HEENT: Examination of HEENT is unremarkable. NECK: Supple. LUNGS: Have decreased breath sounds. HEART: Normal S1 and S2. ABDOMEN: Soft. LABORATORY DATA: Laboratory examination reveals a white count of 10, hemoglobin of 10. BUN of 12, creatinine of 0.4. Microbiology reveals the blood culture is negative. ASSESSMENT AND PLAN: This is a 37-year-old male with systemic inflammatory response syndrome, fever of unknown origin workup in progress, autoimmune, and currently on vancomycin and meropenem. The patient most likely will need a bone marrow aspiration and biopsy as part of workup of fever of unknown origin workup, and possibly a spinal tap. We will follow with you. Arias Aviles MD
[2017-12-02] MEDS: oxyCODONE 30 mg Immediate Release Tab PO PRN ×2 (04:10→16:39)
--- NOTE | 2017-12-02 06:21 | CP.PCM.PN ---
<Mercedes Dubon - Last Filed: 12/02/17 15:25> Subjective - Date & Time of Evaluation Date of Evaluation: 12/02/17 Time of Evaluation: 07:00 - Subjective Subjective: PGY-1 Mercedes Dubon D.O. medicine progress note for Dr. Clinton's service: Patient was seen and examined this morning. He is awake and alert. No fevers over night. Patient is oriented to person and situation. He thinks we are in [facility]. He verbalizes he has pain throughout his back. He make eye contact and is speaking in coherent sentences. He is agreeable to LP and bone marrow biopsy for fever work-up. Objective - Vital Signs/Intake and Output Vital Signs (last 24 hours): Temp Pulse Resp BP Pulse Ox 98.2 F 105 H 19 120/79 95 12/01/17 17:41 12/02/17 06:00 12/01/17 17:41 12/01/17 17:57 12/01/17 17:41 Intake and Output: 12/01/17 12/02/17 18:59 06:59 Intake Total 900 Output Total 1650 Balance -750 - Medications Medications: Current Medications Amlodipine Besylate (Norvasc) 10 mg PO DAILY [facility] Last Admin: 12/01/17 09:33 Dose: 10 mg Docusate Sodium (Colace) 100 mg PO BID [facility] Enoxaparin Sodium (Lovenox) 40 mg SC DAILY [facility]; Protocol Last Admin: 12/01/17 09:32 Dose: 40 mg Famotidine (Pepcid) 20 mg PO 1000 [facility] Last Admin: 12/01/17 09:33 Dose: 20 mg Meropenem (Merrem Iv 1 Gm Premix) 50 mls @ 100 mls/hr IVPB Q8 [facility]; Protocol Last Admin: 12/01/17 21:41 Dose: 100 mls/hr Vancomycin HCl (Vancomycin 1gm) 1 gm in 250 mls @ 167 mls/hr IVPB Q12H [facility]; P rotocol Last Admin: 12/01/17 21:41 Dose: 167 mls/hr Ibuprofen (Motrin Tab) 600 mg PO Q6H PRN PRN Reason: mild pain or fever >100.4 Last Admin: 12/01/17 05:49 Dose: 600 mg Lisinopril (Zestril) 20 mg PO BID [facility] Last Admin: 12/01/17 17:57 Dose: 20 mg Methimazole (Tapazole) 10 mg PO DAILY [facility] Last Admin: 12/01/17 09:33 Dose: 10 mg Nystatin (Nystop Topical Powder) 0 gm TOP BID [facility] Last Admin: 11/30/17 19:10 Dose: Not Given Oxycodone HCl (Oxycodone Immediate Release Tab) 30 mg PO Q6 PRN PRN Reason: Pain, severe (8-10) Last Admin: 12/02/17 04:10 Dose: 30 mg Propranolol HCl (Inderal) 20 mg PO TID [facility] Last Admin: 12/01/17 17:58 Dose: 20 mg Risperidone (Risperdal Tab) 0.5 mg PO BID [facility]; Protocol Last Admin: 12/01/17 17:57 Dose: 0.5 mg Risperidone (Risperdal Tab) 0.5 mg PO HS [facility]; Protocol Last Admin: 12/01/17 21:42 Dose: 0.5 mg - Labs Labs: 12/01/17 07:00 12/01/17 07:00 - Constitutional Appears: Non-toxic, No Acute Distress, Unkempt - Head Exam Head Exam: ATRAUMATIC, NORMAL INSPECTION - Eye Exam Eye Exam: EOMI, Normal appearance - ENT Exam ENT Exam: Mucous Membranes Moist, Normal Exam - Neck Exam Neck Exam: Normal Inspection - Respiratory Exam Respiratory Exam: Clear to Ausculation Bilateral, NORMAL BREATHING PATTERN. a bsent: Respiratory Distress - Cardiovascular Exam Cardiovascular Exam: Tachycardia, +S1, +S2. absent: Murmur - GI/Abdominal Exam GI & Abdominal Exam: Soft, Normal Bowel Sounds. absent: Tenderness - Rectal Exam Rectal Exam: Deferred - Neurological Exam Neurological Exam: Alert, Awake, CN II-XII Intact. absent: Normal Gait - Psychiatric Exam Psychiatric exam: Flat Affect - Skin Skin Exam: Dry, Intact, Normal Color, Warm Assessment and Plan - Assessment and Plan (Free Text) Assessment: Patient is a 37 year old male with a PMH of cervical radiculopathy w/ herniated disc, cervical spondylosis w/ myelopathy, thoracic spondylosis s/p extensive spinal surgeries, and depression vs schizophrenia spectrum under hospital management for AMS. Admitted for delirium 2/2 to polypharmacy, including chronic multiple opiates usage, which has resolved and he is now at baseline mental status. Patient has spiked fevers during hospital course possible due to hyperthyroidism; ruled out infectious causes except patient not consenting to LP. Also, patient has mod-severe muscle atrophy due to prolonged hospital stay, requiring physical therapy. Patient developed increased sinus tachycardia and was transferred to remote [facility] on 11/29. Will repeat sepsis work-up and thyroid studies. Patient also noted to intermittently have auditory and visual hallucinations- observed to be responding to internal stimuli. Patient seems to have a blank stare and become altered with each fever. His mental status resolve s when afebrile. Plan: Fevers- suspect 2/2 hyperthyroidism vs central vs [employer] infection/meningitis - Last fever was on 12/01 100.4 F, Tmax 103 - Will obtain rectal temperature for future oral temperatures >100.4 - Urine Cx negative (11/29) - Sputum Cx negative (11/25) - Blood Cx negative x2 (11/29) - LE Dopplers (11/23): no DVT - CXR (11/25): no active disease - RPR, HIV, JACI, TB panel, CMV negative - Lyme IgG 66 kDa band reactive- nonspecific - Procal <0.05 - No leukocytosis - Echo: EF 58%, no vegetations seen but limited study with poor visualization of valves - Motrin 600 mg PO Q6H PRN - Discontinue Meropenem - Start Cefepime 1 g IV Q12H (started 12/02) - Vancomycin 1 g IV Q12H (started 11/25) - ID consulted (Abraham) - Hematology/oncology consulted (Rachel)- bone marrow Bx on Tuesday 12/05 Delirium vs Encephalopathy, intermittent- initially suspected 2/2 to polypharmacy/multiple opiates, underlying psychiatric disorder (schizophrenia spectrum vs depression), patient continues to intermittently hallucinate and become disoriented, so cause is likely multifactorial (thyroid, fevers) - MRI w/ and w/o contrast 11/17: unremarkable, no evidence of herpes encephalitis - Discontinued opiates, benzos, stimulants - Only restarted oxycodone 30 mg PO Q6H PRN - Risperdal 0.5 mg PO BID, 0.5 mg PO QHS - Video EEG- seizure activity seen - Start Depakote 1000 mg PO BID - Neurology consulted (Sukhwinder/Cam)- video EEG, will attempt LP Sunday 12/03 - Psychiatry consulted (Taylor)- added scheduled Risperdal Sinus tachycardia- 2/2 to hyperthyroidism, fevers - 11/29 HR 160s- given Lopressor 5 mg IVP x3, improved to 110s - EKG: no ST changes - CTA chest: Cannot rule out segmental/subsegmental pulmonary artery embolism. No large central pulmonary embolism. - V/Q scan: no PE - Monitor on remote telemetry - Cardiology consulted (Mariela) Hyperthyroidism - Propranolol 20 mg PO TID - Methimazole 10 mg PO daily - Endocrinology consulted (Garrick) Muscle atrophy- 2/2 Immobility and Multiple Spinal Surgeries - Encourage OOB to chair with assistance - PT- poor progress, patient putting in minimal effort - Discussed with patient's mother to encourage patient to ambulate and participate with PT Chronic back pain- s/p multiple back surgeries in 2016 - Motrin 600 mg PO Q6H PRN - Oxycodone 30 mg PO Q6H PRN - Colace 100 mg PO BID - Miralax 17 g PO BID PRN - Encourage OOB to chair - PT- poor progress, patient putting in minimal effort HTN- presently well controlled (140s/90s) - Propranolol 20 mg PO TID - Lisinopril 20 mg PO BID - Norvasc 10 mg PO daily Anemia- Hgb 14.1 on admission, now 10 - B12, folate wnl - Iron wnl, TIBC wnl, ferritin wnl, %sat low (16), transferrin low (202.43) - F/u FOBT Transaminitis, stable - Monitor daily - Avoid hepatotoxic medications IVF: not indicated Diet: regular GI ppx: Pepcid 20 mg PO daily VTE ppx: Lovenox 40 mg SC daily Code status: full code Dispo: Continue with Physical Therapy- rec FREDRICK. Continue work-up for fevers and AMS. Case discussed with attending, Dr. Clinton. <Denia Clinton - Last Filed: 12/03/17 15:46> Objective - Vital Signs/Intake and Output Vital Signs (last 24 hours): Temp Pulse Resp BP Pulse Ox 99.1 F 88 16 130/84 100 12/03/17 14:50 12/03/17 15:04 12/03/17 15:04 12/03/17 15:04 12/03/17 15:04 Intake and Output: 12/03/17 12/03/17 06:59 18:59 Intake Total 751 2099 Output Total 3000 Balance 751 -750 - Medications Medications: Current Medications Amlodipine Besylate (Norvasc) 10 mg PO DAILY [facility] Last Admin: 12/03/17 09:38 Dose: Not Given Docusate Sodium (Colace) 100 mg PO BID [facility] Last Admin: 12/03/17 09:37 Dose: Not Given Enoxaparin Sodium (Lovenox) 40 mg SC DAILY [facility]; Protocol Last Admin: 12/03/17 09:49 Dose: 40 mg Famotidine (Pepcid) 20 mg IVP DAILY [facility] Last Admin: 12/03/17 11:50 Dose: 20 mg Vancomycin HCl (Vancomycin 1gm) 1 gm in 250 mls @ 167 mls/hr IVPB Q12H [facility]; Pro tocol Last Admin: 12/03/17 11:50 Dose: 167 mls/hr Cefepime HCl (Maxipime 1gm) 1 gm in 100 mls @ 100 mls/hr IVPB Q12 [facility]; Protocol Last Admin: 12/03/17 09:37 Dose: Not Given Sodium Chloride (Sodium Chloride 0.9%) 1,000 mls @ 100 mls/hr IV .Q10H [facility] Last Admin: 12/02/17 22:00 Dose: 100 mls/hr NOREPINEPHRINE BIT/0.9 % NACL (Levophed 4 Mg/ 250 Ml Ns Premixed) 4 mg in 250 mls @ 112.5 mls/hr IV .Q2H14M PRN; Protocol PRN Reason: TITRATE PER MD ORDER Last Admin: 12/03/17 12:25 Dose: 17 mcg/min, 63.75 mls/hr Cefepime HCl (Maxipime 2gm) 2 gm in 100 mls @ 100 mls/hr IVPB Q8 [facility]; Protocol Stop: 12/08/17 07:46 Last Admin: 12/03/17 13:57 Dose: 100 mls/hr Ampicillin Sodium/Sulbactam (Sodium 3 gm/ Sodium Chloride) 100 mls @ 200 mls/hr IVPB Q6 [facility]; Protocol Last Admin: 12/03/17 13:58 Dose: 200 mls/hr Acyclovir 10 mg/ Sodium (Chloride) 100 mls @ 100 mls/hr IV Q8 [facility]; Protocol Last Admin: 12/03/17 13:57 Dose: 100 mls/hr Ibuprofen (Motrin Tab) 600 mg PO Q6H PRN PRN Reason: mild pain or fever >100.4 Last Admin: 12/01/17 05:49 Dose: 600 mg Lisinopril (Zestril) 20 mg PO BID [facility] Last Admin: 12/03/17 10:00 Dose: Not Given Methimazole (Tapazole) 10 mg PO DAILY [facility] Last Admin: 12/03/17 11:52 Dose: 10 mg Nystatin (Nystop Topical Powder) 0 gm TOP BID [facility] Last Admin: 12/03/17 10:06 Dose: 1 applic Oseltamivir Phosphate (Tamiflu Cap) 75 mg PO BID [facility]; Protocol Stop: 12/08/17 07:57 Last Admin: 12/03/17 11:51 Dose: 75 mg Risperidone (Risperdal Tab) 0.5 mg PO BID [facility]; Protocol Last Admin: 12/03/17 10:30 Dose: Not Given Risperidone (Risperdal Tab) 0.5 mg PO HS [facility]; Protocol Last Admin: 12/02/17 21:50 Dose: Not Given Valproate Sodium (Depakene Oral Soln) 600 mg PO TID [facility] Last Admin: 12/03/17 13:57 Dose: 600 mg Valproate Sodium (Depakene Oral Soln) 600 mg PO ONCE [facility] Last Admin: 12/03/17 10:35 Dose: 600 mg - Labs Labs: 12/03/17 05:00 12/03/17 05:00 Attending/Attestation - Attestation I have personally seen and examined this patient.: Yes I have fully participated in the care of the patient.: Yes I have reviewed all pertinent clinical information, including history, physical exam and plan: Yes Notes (Text): Patient seen and examined by me at 11:55AM with resident 12/02/17. Case including HPI, physical exam, and assessment and plan discussed with resident. Agree with above with following additions/corrections. Patient is a 37 year old male with past medical history that is significant for cervical radiculopathy with herniated disc, cervical spondylosis with myelopathy, thoracic spondylosis, and depression that presented to the emergency room with visual hallucinations. Patient with some confusion. States he feels ok but has pain. He states he does not know where the pain is. Patient afebrile since yesterday morning. Patient is denying any nausea, vomiting, or abdominal pain. He denies any chest pain or shortness of breath. No headaches or dizziness. Physical exam: General: Awake and alert lying in bed in no acute distress HEENT: Normocephalic atraumatic. Pupils equal reactive. No scleral icterus. Oropharynx is pink and moist. Poor dentition. Neck is supple. Cardiovascular: Tachycardic S1, S2. No murmurs, rubs, or gallops appreciated Pulmonary: Normal respiratory effort. No rhonchi, rales or wheezing appreciated. Gastrointestinal: Soft, nondistended. Nontender. Positive bowel sounds all 4 quadrants, no guarding. Musculoskeletal: Moves all extremities, no calf tenderness, no edema appreciated. Central nervous system: Awake and alert. Dermatologic: Skin warm and dry. Positive well healed scar on back. Assessment and plan: Patient is a 37 year old male with past medical history that is significant for cervical radiculopathy with herniated disc, cervical spondylosis with myelopathy, thoracic spondylosis, and depression that presented to the emergency room with visual hallucinations. 1. Fever. Unclear etiology. Continues with intermittent fevers. Last fever yesterday morning. ID following, recommendations appreciated. UA with no infection. Continue vancomycin and meropenem. Blood cultures with no growth. Urine cultures with no growth. Consent not provided my mother for lumbar puncture as mother would like to be here for procedure. Plan for lumbar puncture tomorrow and bone marrow biopsy on 12/05/17. MRI brain negative for infection. CT abdomen/pelvis/chest negative for infection. Upper and lower extremity venous Dopplers negative for DVT. Chest x-ray negative for infection. RPR nonreactive. Leukocytosis resolved. 2. Tachycardia. Likely secondary to fever and hyperthyroidism. CTA chest per radiologist shows technically limited examination, cannot rule out s egmental/subsegmental pulmonary artery embolism, no large central pulmonary embolism, incidentally noted bilateral gynecomastia. Troponins is within normal limits. Cardiology consulted, recommendations appreciated. V/Q low probablity for PE. 3. Sinus positive on edge stripper. Cardiology consulted, recommendations appreciated. 2-D echo per hand mexican food maker shows technically limited study, chamber sizes are within normal limits, normal LV systolic function, mild TR, no vegetations seen but not all valves optimally visualized. Continue to monitor on telemetry. 4. Acute delirium. Appears to be secondary to fevers. Waxes and wanes. Continue Ativan as needed. Continue Risperdal. Continue oxycodone. Patient for lumbar puncture tomorrow. 5. Possible seizure activity. Video EEG per neurologist shows possible subclinical seizures. Patient started on Depakote. 6. Leukocytosis. Resolved. Continue to monitor. 7. Hyperthyroidism. Endocrinology following, recommendations appreciated. Continue propranolol and methimazole. 8. Essential hypertension. Continue lisinopril, Norvasc, and propanolol. 9. Constipation. Continue Colace and Miralax. 10. Hypokalemia. Resolved. Continue to monitor. Case discussed in detail with the patient, neurology, and patient's nurse regarding current diagnosis and treatment plan.
[2017-12-02] MEDS: Meropenem IV 1 gm in NS 50 ML IVPB SCH (06:39)
[2017-12-02 07:16] LABS: EOS % 0.4 % (1.5-5.0); GRAN # 3.54 (1.4-6.5); GRAN % 63.1 % (50.0-68.0); LYMPH # 1.4 (1.2-3.4); LYMPH % 24.5 % (22.0-35.0); MEAN CORPUSCULAR HEMOGLOBIN 28.6 pg (25.0-35.0); MEAN CORPUSCULAR HGB CONC 31.7 g/dl (31.0-37.0); MEAN PLATELET VOLUME 8.8 fl (7.0-11.0); MONO # 0.7 (0.1-0.6); RBC 3.5 10^6/uL (3.5-6.1); RED CELL DISTRIBUTION WIDTH 15.5 % (11.5-14.5); WHITE BLOOD COUNT 5.6 10^3/ul (4.5-11.0)
[2017-12-02 07:34] LABS: ALB/GLOB RATIO 0.9 (1.1-1.8); ALBUMIN 3.2 g/dL (3.0-4.8); ALT/SGPT 59 U/L (7-56); AST/SGOT 48 U/L (17-59); BLOOD UREA NITROGEN 10 mg/dL (7-21); CALCIUM 8.9 mg/dL (8.4-10.5); GFR NON-AFRICAN AMERICAN > 60
--- NOTE | 2017-12-02 08:37 | CP.PCM.PN ---
Addendum entered and electronically signed by Gonzalo Rosario MD 12/03/17 08:05: The patient previously was on IV Acyclovir but MRI brain on 11/17/2017 did not suggest HSV encephalitis (brain MRI done with and without contrast), making HSV encephalitis unlikely. Also awaiting autoimmune work up and may need work up for anti-NMDA receptor encephalitis. Original Note: <Shira Jara - Last Filed: 12/02/17 12:33> Subjective - Date & Time of Evaluation Date of Evaluation: 12/02/17 Time of Evaluation: 09:05 - Subjective Subjective: PGY-3 Resident ID progress note for Dr. Rosario Patient appears more awake and alert this morning. Last fever was yesterday morning, tmax 100.4. Denies abdominal pain, ate breakfast this morning. No nausea, vomiting or diarrhea. Objective - Vital Signs/Intake and Output Vital Signs (last 24 hours): Temp Pulse Resp BP Pulse Ox 98.2 F 105 H 19 120/79 95 12/01/17 17:41 12/02/17 06:00 12/01/17 17:41 12/01/17 17:57 12/01/17 17:41 Intake and Output: 12/02/17 12/02/17 06:59 18:59 Intake Total 900 Output Total 1650 Balance -750 - Medications Medications: Current Medications Amlodipine Besylate (Norvasc) 10 mg PO DAILY [facility] Last Admin: 12/01/17 09:33 Dose: 10 mg Docusate Sodium (Colace) 100 mg PO BID [facility] Enoxaparin Sodium (Lovenox) 40 mg SC DAILY [facility]; Protocol Last Admin: 12/01/17 09:32 Dose: 40 mg Famotidine (Pepcid) 20 mg PO 1000 [facility] Last Admin: 12/01/17 09:33 Dose: 20 mg Meropenem (Merrem Iv 1 Gm Premix) 50 mls @ 100 mls/hr IVPB Q8 [facility]; Protocol Last Admin: 12/02/17 06:39 Dose: 100 mls/hr Vancomycin HCl (Vancomycin 1gm) 1 gm in 250 mls @ 167 mls/hr IVPB Q12H [facility]; Protocol Last Admin: 12/01/17 21:41 Dose: 167 mls/hr Ibuprofen (Motrin Tab) 600 mg PO Q6H PRN PRN Reason: mild pain or fever >100.4 Last Admin: 12/01/17 05:49 Dose: 600 mg Lisinopril (Zestril) 20 mg PO BID [facility] Last Admin: 12/01/17 17:57 Dose: 20 mg Methimazole (Tapazole) 10 mg PO DAILY [facility] Last Admin: 12/01/17 09:33 Dose: 10 mg Nystatin (Nystop Topical Powder) 0 gm TOP BID [facility] Last Admin: 11/30/17 19:10 Dose: Not Given Oxycodone HCl (Oxycodone Immediate Release Tab) 30 mg PO Q6 PRN PRN Reason: Pain, severe (8-10) Last Admin: 12/02/17 04:10 Dose: 30 mg Propranolol HCl (Inderal) 20 mg PO TID [facility] Last Admin: 12/01/17 17:58 Dose: 20 mg Risperidone (Risperdal Tab) 0.5 mg PO BID [facility]; Protocol Last Admin: 12/01/17 17:57 Dose: 0.5 mg Risperidone (Risperdal Tab) 0.5 mg PO HS [facility]; Protocol Last Admin: 12/01/17 21:42 Dose: 0.5 mg - Labs Labs: 12/02/17 06:30 12/02/17 06:30 - Constitutional Appears: No Acute Distress, Older Than Stated Age, Chronically Ill - Head Exam Head Exam: ATRAUMATIC, NORMAL INSPECTION, NORMOCEPHALIC - Eye Exam Eye Exam: Normal appearance - ENT Exam ENT Exam: Mucous Membranes Moist - Neck Exam Neck Exam: Normal Inspection - Respiratory Exam Respiratory Exam: Clear to Ausculation Bilateral, NORMAL BREATHING PATTERN. absent: Rales, Rhonchi, Wheezes, Respiratory Distress, Stridor - Cardiovascular Exam Cardiovascular Exam: Tachycardia, REGULAR RHYTHM, +S1, +S2 - GI/Abdominal Exam GI & Abdominal Exam: Soft, Normal Bowel Sounds. absent: Distended, Firm, Guarding, Rigid, Tenderness - Extremities Exam Extremities Exam: Normal Inspection - Neurological Exam Neurological Exam: Alert, Awake - Psychiatric Exam Psychiatric exam: Flat Affect - Skin Skin Exam: Diaphoretic, Normal Color Additional comments: + Abrasion. Assessment and Plan - Assessment and Plan (Free Text) Assessment: 37 y/o with: SIRS - possibly fever of unknown origin, sepsis was ruled out, tmax of 100.4. Autoimmune work up pending including vasculitis, and lupus, quatiferon gold sent , CT angio done to rule out PE, DVT ruled out, HIV was ruled out with 4th generation test, DVT ruled out. Hyperthyroidism and drug fever are another possibilities. Controlled substance use including opiate, methadone and benzo Delirium- resolved Depression Transaminitis Herniated disc cervical spondylosis Myelopathy Plan: Sepsis ruled out Still tachy, and last fever was yesterday. Patient is being worked up for seizures, on video EEG monitoring R/o emcephalitis- neurology planning to perform Lumbar puncture. Heme onc on board for bone marrow biopsy next week. Patient has been on Merrem and vanco day#8, will stop the merrem due to its risk of lowering seizure treshold. Will start cefepime instead. HIV negative, normal hep panel, and negative RPR. TTE didn't reveal any vegetation. Autoimmune work up including lupus, and ANCA so far negative. TB negative. MRI of the brain was done and ruled out herpes encephalitis CT chest abdomen and pelvis with no intra-abdominal infections or adenopaties noted. No history of indwelling hardwares, no recent surgery. Discussed with neurologist Dr Levy, patient might be having seizures on video EEG, planning to start patient on anti epilectics. Patient seen, examined and case discussed with Dr. Rosario. <Gonzalo Rosario - Last Filed: 12/02/17 18:21> Objective - Vital Signs/Intake and Output Vital Signs (last 24 hours): Temp Pulse Resp BP Pulse Ox 98.6 F 120 H 20 162/98 H 98 12/02/17 17:25 12/02/17 17:25 12/02/17 17:25 12/02/17 17:25 12/02/17 17:25 Intake and Output: 12/02/17 12/02/17 06:59 18:59 Intake Total 900 Output Total 1650 Balance -750 - Medications Medications: Current Medications Amlodipine Besylate (Norvasc) 10 mg PO DAILY [facility] Last Admin: 12/02/17 09:26 Dose: 10 mg Divalproex Sodium (Depakote Dr(*Bid*)) 1,000 mg PO BID [facility] Last Admin: 12/02/17 17:10 Dose: 1,000 mg Docusate Sodium (Colace) 100 mg PO BID [facility] Last Admin: 12/02/17 17:09 Dose: 100 mg Enoxaparin Sodium (Lovenox) 40 mg SC DAILY [facility]; Protocol Last Admin: 12/02/17 09:26 Dose: 40 mg Famotidine (Pepcid) 20 mg PO 1000 [facility] Last Admin: 12/02/17 09:27 Dose: 20 mg Vancomycin HCl (Vancomycin 1gm) 1 gm in 250 mls @ 167 mls/hr IVPB Q12H [facility]; Protocol Last Admin: 12/02/17 09:28 Dose: 167 mls/hr Cefepime HCl (Maxipime 1gm) 1 gm in 100 mls @ 100 mls/hr IVPB Q12 [facility]; Protocol Ibuprofen (Motrin Tab) 600 mg PO Q6H PRN PRN Reason: mild pain or fever >100.4 Last Admin: 12/01/17 05:49 Dose: 600 mg Lisinopril (Zestril) 20 mg PO BID [facility] Last Admin: 12/02/17 17:11 Dose: 20 mg Methimazole (Tapazole) 10 mg PO DAILY [facility] Last Admin: 12/02/17 09:27 Dose: 10 mg Nystatin (Nystop Topical Powder) 0 gm TOP BID [facility] Last Admin: 12/02/17 17:15 Dose: 1 applic Oxycodone HCl (Oxycodone Immediate Release Tab) 30 mg PO Q6 PRN PRN Reason: Pain, severe (8-10) Last Admin: 12/02/17 16:39 Dose: 30 mg Propranolol HCl (Inderal) 20 mg PO TID [facility] Last Admin: 12/02/17 17:10 Dose: 20 mg Risperidone (Risperdal Tab) 0.5 mg PO BID [facility]; Protocol Last Admin: 12/02/17 17:10 Dose: 0.5 mg Risperidone (Risperdal Tab) 0.5 mg PO HS [facility]; Protocol Last Admin: 12/01/17 21:42 Dose: 0.5 mg - Labs Labs: 12/02/17 06:30 12/02/17 06:30 Assessment and Plan - Assessment and Plan (Free Text) Plan: Infectious diseases attending physician addendum Patient discussed with medical insurance coding specialist. I have reviewed the pertinent clinical information. I agree with the above findings, assessment and plan and in addition: Assessment headache, resolved fever of unknown origin probable delirium from medication use R/O encephalitis GERD cervical radiculopathy lumbar herniated disc depression Plan MRI brain is negative will continue Vancomycin and change Merrem to Cefepime (because of suggestion that he might have seizures) - repeat cultures have been negative discussed with Dr. Levy (Neurology) - EEG reviewed and it suggests seizures - we agree that patient will need LP for further testing and we are awaiting consent - will need cell count, protein, VDRL, HSV PCR, CMV PCR, Enterovirus PCR, WNV IgM
[2017-12-02] MEDS: Enoxaparin 40 mg Syringe SC SCH (09:26)
[2017-12-02] MEDS: methIMAzole 5 MG TAB PO SCH (09:27)
[2017-12-02] MEDS: Vancomycin 1gm in NS 250ml 1 GM/250 ML BAG IVPB SCH ×2 (09:28→22:00)
[2017-12-02] MEDS: Nystatin 100,000 Units/gm Topical Pow(15 gm) TOP SCH ×2 (09:31→17:15)
[2017-12-02] MEDS ORDERED: Divalproex 500 mg DR(BID formulation) PO STA (12:11)
--- NOTE | 2017-12-02 14:30 | PN ---
DATE: 12/02/2017 SUBJECTIVE: The patient denies any chest pain. PHYSICAL EXAMINATION VITAL SIGNS: Blood pressure 143/97, heart rate 109, temperature 98.1, respirations 20. HEENT: Normocephalic. CHEST: Diminished breath sounds over the bases. HEART: S1, S2 regular. EXTREMITIES: No edema. LABORATORY DATA: Hemoglobin and hematocrit 10 and 31.5. White count and platelet count are within normal limit. SMA-7: Sodium 137, potassium 3.7, chloride 97, CO2 34, glucose 100. BUN 10, creatinine 0.4. ASSESSMENT: 1. Sinus tachycardia. 2. Hyperthyroidism. 3. Chronic low back pain. 4. hypokalemia. RECOMMENDATIONS: Continue Inderal 20 mg t.i.d., Lovenox 40 mg subcutaneously once a day, IV meropenem at 1 g every 8 hours, Norvasc 10 mg once a day,Tapazole 10 mg once a day, vancomycin 1 g intravenously every 12 hours, Zestril 20 mg twice a day. Stiven Sierra MD
--- NOTE | 2017-12-02 16:00 | CP.PCM.PN ---
Subjective - Date & Time of Evaluation Date of Evaluation: 12/02/17 Time of Evaluation: 15:59 - Subjective Subjective: Amy Kimball, PGY2, Neurology Progress Note for Dr Levy: Patient seen and examined at bedside. No acute events overnight. Patient awake, alert, oriented to self only. Reports back pain, states that he is okay to get an LP today as he wants to get better. Denies headache, nausea, vomiting, abdominal pain. ROS limited due to patient's condition. Objective - Vital Signs/Intake and Output Vital Signs (last 24 hours): Temp Pulse Resp BP Pulse Ox 98.1 F 109 H 20 143/97 H 93 L 12/02/17 06:00 12/02/17 09:28 12/02/17 06:00 12/02/17 09:28 12/02/17 06:00 Intake and Output: 12/02/17 12/02/17 06:59 18:59 Intake Total 900 Output Total 1650 Balance -750 - Medications Medications: Current Medications Amlodipine Besylate (Norvasc) 10 mg PO DAILY [facility] Last Admin: 12/02/17 09:26 Dose: 10 mg Divalproex Sodium (Depakote Dr(*Bid*)) 1,000 mg PO BID [facility] Docusate Sodium (Colace) 100 mg PO BID [facility] Last Admin: 12/02/17 09:25 Dose: 100 mg Enoxaparin Sodium (Lovenox) 40 mg SC DAILY [facility]; Protocol Last Admin: 12/02/17 09:26 Dose: 40 mg Famotidine (Pepcid) 20 mg PO 1000 [facility] Last Admin: 12/02/17 09:27 Dose: 20 mg Vancomycin HCl (Vancomycin 1gm) 1 gm in 250 mls @ 167 mls/hr IVPB Q12H [facility]; Protocol Last Admin: 12/02/17 09:28 Dose: 167 mls/hr Cefepime HCl (Maxipime 1gm) 1 gm in 100 mls @ 100 mls/hr IVPB Q12 [facility]; Protocol Ibuprofen (Motrin Tab) 600 mg PO Q6H PRN PRN Reason: mild pain or fever >100.4 Last Admin: 12/01/17 05:49 Dose: 600 mg Lisinopril (Zestril) 20 mg PO BID [facility] Last Admin: 12/02/17 09:28 Dose: 20 mg Methimazole (Tapazole) 10 mg PO DAILY [facility] Last Admin: 12/02/17 09:27 Dose: 10 mg Nystatin (Nystop Topical Powder) 0 gm TOP BID [facility] Last Admin: 12/02/17 09:31 Dose: 1 applic Oxycodone HCl (Oxycodone Immediate Release Tab) 30 mg PO Q6 PRN PRN Reason: Pain, severe (8-10) Last Admin: 12/02/17 04:10 Dose: 30 mg Propranolol HCl (Inderal) 20 mg PO TID [facility] Last Admin: 12/02/17 14:18 Dose: 20 mg Risperidone (Risperdal Tab) 0.5 mg PO BID [facility]; Protocol Last Admin: 12/02/17 09:27 Dose: 0.5 mg Risperidone (Risperdal Tab) 0.5 mg PO HS [facility]; Protocol Last Admin: 12/01/17 21:42 Dose: 0.5 mg - Labs Labs: 12/02/17 06:30 12/02/17 06:30 - Constitutional Appears: Older Than Stated Age, Confused, Chronically Ill - Head Exam Head Exam: ATRAUMATIC, NORMOCEPHALIC - Eye Exam Eye Exam: EOMI, Nystagmus, PERRL. absent: Conjunctival injection, Scleral icterus Pupil Exam: PERRL. absent: Fixed, Irregular, Unequal - ENT Exam ENT Exam: Mucous Membranes Moist - Neck Exam Additional comments: multiple cervical surgeries in the past, unable to bend neck. - Respiratory Exam Respiratory Exam: Clear to Ausculation Bilateral, NORMAL BREATHING PATTERN. absent: Accessory Muscle Use, Rhonchi, Wheezes, Stridor - Cardiovascular Exam Cardiovascular Exam: RRR, +S1, +S2. absent: Murmur - GI/Abdominal Exam GI & Abdominal Exam: Soft, Normal Bowel Sounds. absent: Guarding, Tenderness, Organomegaly - Extremities Exam Extremities Exam: Normal Inspection. absent: Calf Tenderness, Pedal Edema - Back Exam Additional comments: multiple scars noted in the back - Neurological Exam Neurological Exam: Alert, Awake. absent: Normal Gait, Oriented x3 Neuro motor strength exam: Left Upper Extremity: 3 (likely limited due to being uncooperative with exam), Right Upper Extremity: 3, Left Lower Extremity: 2/1 (decreased strength (baseline as per mom)), Right Lower Extremity: 2/1 Additional comments: Slowed movements - Psychiatric Exam Psychiatric exam: Flat Affect - Skin Skin Exam: Warm Assessment and Plan - Assessment and Plan (Free Text) Assessment: 37 year old male with a PMH of cervical radiculopathy w/ herniated disc, cervical spondylosis w/ myelopathy, thoracic spondylosis and depression, presents for acute delirium, found to have episodes of spiking fevers: - Patient initially refused lumbar puncture. Today, discussed it with patient and his mother over the phone. They are consenting to the procedure. However, mother wants to be present during the LP (states that she cannot come in today before 2 PM). Therefore, unable to perform LP today. Will attempt tomorrow. - EEG showed epilleptiform activity - Patient scheduled for bone marrow biopsy on Tuesday12/05/17. - Started on Depakote 1000 mg PO BID - neuro checks, seizure precautions Case reviewed and discussed with Dr Levy.
[2017-12-02] MEDS: Divalproex 500 mg DR(BID formulation) PO SCH (17:10)
[2017-12-02] MEDS ORDERED: Naloxone 0.4 mg/ml Inj (Adult) ONE ×2 (18:37→18:42)
[2017-12-02] MEDS ORDERED: Naloxone 0.4 mg/ml Inj (Adult) IVP ONE (18:40)
[2017-12-02] MEDS ORDERED: levETIRAcetam 1000mg/100ml NS 100 ML IV ONE (19:25)
--- NOTE | 2017-12-02 19:26 | PCM.RRT ---
<Addy Brown - Last Filed: 12/02/17 19:27> [employer] Nurse Assessment - Situation Date: 12/02/17 Time [employer] was called: 18:33 [employer] Responder Arrival Time: 06:33 [employer] Location:: [address] [place] [address] Room Number: [id number] [employer] Reason for Call: Change in Mental Status [employer] Called By: RN - IV IV Inserted during [employer]ERCIAL [employer]ING [employer]TAIN?: No - Respiratory Oxygen Delivery Method: Nasal Cannula @L/min Oxygen Flow Rate: 3 Received Nebulizer Treatments:: No - Medication Medications Administered During [employer]: Narcan 0.4 Push. Narcan 0.4 Push. Tylenol 650 Suppository - Diagnostic Test Ordered CT Scan: Yes CPR started during COMMERCIAL SHR[employer]ING [employer]TAIN?: No - Vital Signs Vital Sign: Rapid Response Vital Sign Blood Pressure 165/117 Pulse Rate 115 Respiratory Rate 17 Temperature 102.8 F - Finger Stick Blood Glucose Finger Stick Blood Glucose: 163 - Sepsis Screen Part 1 Sepsis Screen Part 1: Temperature over 100.6F - Time [employer] Ended Time [employer] Ended: 18:44 - Vital Signs at end of [employer] Vital Signs at end of [employer]: Rapid Response End Vital Sign Blood Pressure 167/125 - Recommendations Notifications: Attending Physician, Family or Designated Caregiver I.Reason for [employer] - A) Acute Change in Patient: (Select all that apply): Acute change in mental status - Neurological Status (Select all that apply): absent: Alert, Responsive, Oriented, Verbal, Follows Commands, Disoriented, Confused, Lethargic, Aggressive, Weakness Other (Please specify): Patient is non responsive; AMS; possible delirium due to infection - Respiratory Oxygen Delivery Method: Nasal Cannula @L/min Oxygen Flow Rate: 3 - Constitutional Appears: Non-toxic, No Acute Distress - Head Head Exam: NORMAL INSPECTION, NORMOCEPHALIC - Eyes Eye Exam: Normal appearance. absent: Nystagmus, PERRL, Scleral icterus - Respiratory Exam Respiratory Exam: Clear to Ausculation Bilateral, NORMAL BREATHING PATTERN - Cardiovascular Exam Cardiovascular Exam: Tachycardia, REGULAR RHYTHM, +S1, +S2 - GI/Abdominal Exam GI & Abdominal Exam: Soft, Normal Bowel Sounds. absent: Distended, Firm, Guarding, Tenderness - Neurological Exam Neurological Exam: absent: Alert, Awake - Extremities Exam Extremities Exam: Normal Inspection. absent: Calf Tenderness, Pedal Edema Plan - Assessment of Findings&Treatment Plan Rapid Response was called for patient due to acute change in mental status. Patient was nonresponsive during examination. Multiple sternal rubs were performed with patient moaning at times however patient was never verbal. Temperature recorded orally was 100.6 but rectal temperature was 102. Patient had received oxycodone at 4:45. Patient was given 2 rounds of narcan and tylenol 650mg rectally. Patient was then transported to have a head CT. Patient was transferred to ICU for further workup. Neuro was consulted for possible seizure. Patient had video EEG that showed positive seizure activity. Patient will be started on Keppra as per neurology. CBC/CMP labs are ordered for possible electrolyte imbalance. Video EEG will be ordered to rule seizures. <Denia Clinton R - Last Filed: 12/03/17 16:13> [employer] Nurse Assessment - Vital Signs Vital Sign: Rapid Response Vital Sign Blood Pressure 165/117 Pulse Rate 115 Respiratory Rate 17 Temperature 102.8 F - Vital Signs at end of [employer] Vital Signs at end of [employer]: Rapid Response End Vital Sign Blood Pressure 167/125 Attending/Attestation - Attestation I have personally seen and examined this patient.: Yes I have fully participated in the care of the patient.: Yes I have reviewed all pertinent clinical information, including history, physical exam and plan: Yes Notes (Text): Patient seen and examined by me at 6:34PM-8PM with resident 12/02/17. Above discussed with resident. Agree with above with following additions/corrections. Rapid Response was called at 6:33PM for patient having change in mental status. Mother was at bedside. Per mother, patient did speak to her earlier. He then became "flushed" in the face and mother notified nurse. Patient did moan to painful stimuli. Patient had received oxycodone prior. Narcan was given for opiod reversal. Patient did open eyes and move around a little after receiving narcan. Patient was then taken to head CT and was taken to ICU from there. Patient was found to have temp 102.2 and was initially given rectal tylenol. Patient was tachycardic in 110s in ICU (patient's baseline). There was a question of possible seizure at that time. Patient was then given ativan and Keppra per neurologist. Patient resting comfortably. Physical exam: General:Lying in bed in no acute distress HEENT: Normocephalic atraumatic. Pupils sluggish. No scleral icterus. Cardiovascular: Tachycardic S1, S2. No murmurs, rubs, or gallops appreciated Pulmonary: Normal respiratory effort. No rhonchi, rales or wheezing appreciated. Gastrointestinal: Soft, nondistended. Positive bowel sounds all 4 quadrants, no guarding. Central nervous system: Moans to painful stimuli. Lethargic.
[2017-12-02 19:44] LABS: EOS % 0.1 % (1.5-5.0); GRAN # 9.64 (1.4-6.5); GRAN % 85.4 % (50.0-68.0); HEMOGLOBIN 11.2 g/dL (14.0-18.0); LYMPH # 0.9 (1.2-3.4); LYMPH % 7.5 % (22.0-35.0); MEAN CELL VOLUME 86.4 fl (80.0-105.0); MEAN CORPUSCULAR HEMOGLOBIN 29.3 pg (25.0-35.0); MEAN CORPUSCULAR HGB CONC 33.9 g/dl (31.0-37.0); MEAN PLATELET VOLUME 8.7 fl (7.0-11.0); MONO # 0.8 (0.1-0.6); RBC 3.82 10^6/uL (3.5-6.1); WHITE BLOOD COUNT 11.3 10^3/ul (4.5-11.0)
[2017-12-02 19:58] LABS: ALB/GLOB RATIO 0.9 (1.1-1.8); ALBUMIN 3.6 g/dL (3.0-4.8); ALT/SGPT 55 U/L (7-56); AST/SGOT 37 U/L (17-59); BLOOD UREA NITROGEN 12 mg/dL (7-21); CALCIUM 8.5 mg/dL (8.4-10.5); GFR NON-AFRICAN AMERICAN > 60
[2017-12-02 20:03] LABS: ARTERIAL BLOOD GAS HCO3 26.5 mmol/L (21-28); ARTERIAL BLOOD GAS HEMOGLOBIN 10.8 g/dL (11.7-17.4); ARTERIAL BLOOD GAS O2 CAPACITY 15.1 mL/dl (16-24); ARTERIAL BLOOD GAS O2 SAT 99.6 % (95-98); ARTERIAL BLOOD GAS PCO2 34 mm/Hg (35-45); ARTERIAL BLOOD GAS TCO2 27.5 mmol.L (22-28)
[2017-12-02] MEDS ORDERED: Valproate 1,000 MG in Sodium Chloride 0.9% 100 ML IVPB STA (20:14)
--- NOTE | 2017-12-02 20:16 | CP.PCM.PN ---
Subjective - Date & Time of Evaluation Date of Evaluation: 12/01/17 Time of Evaluation: 14:00 - Subjective Subjective: Patient reconsulted for lP and possible meningtis. Chart reviewed and history noted . Mr. Haro appears to be quite encephalopathic, and tangential, not able to answer proverbs, and name or repeat. However, he was able to name 10 animals in the zoo after some prodding. EEG: THus far has been just intermittent generalized slowing. On exam awake but confused, motor: 4/5 bilaterally, sensory: not accurate Gait not tested. dysarthria. Objective - Vital Signs/Intake and Output Vital Signs (last 24 hours): Temp Pulse Resp BP Pulse Ox 98.6 F 118 H 20 162/98 H 98 12/02/17 17:25 12/02/17 18:00 12/02/17 17:25 12/02/17 17:25 12/02/17 17:25 Intake and Output: 12/02/17 12/03/17 18:59 06:59 Intake Total 1110 Output Total 1100 Balance 10 - Medications Medications: Current Medications Amlodipine Besylate (Norvasc) 10 mg PO DAILY [facility] Last Admin: 12/02/17 09:26 Dose: 10 mg Divalproex Sodium (Depakote Dr(*Bid*)) 1,000 mg PO BID [facility] Last Admin: 12/02/17 17:10 Dose: 1,000 mg Docusate Sodium (Colace) 100 mg PO BID [facility] Last Admin: 12/02/17 17:09 Dose: 100 mg Enoxaparin Sodium (Lovenox) 40 mg SC DAILY [facility]; Protocol Last Admin: 12/02/17 09:26 Dose: 40 mg Famotidine (Pepcid) 20 mg PO 1000 [facility] Last Admin: 12/02/17 09:27 Dose: 20 mg Vancomycin HCl (Vancomycin 1gm) 1 gm in 250 mls @ 167 mls/hr IVPB Q12H [facility]; Protocol Last Admin: 12/02/17 09:28 Dose: 167 mls/hr Cefepime HCl (Maxipime 1gm) 1 gm in 100 mls @ 100 mls/hr IVPB Q12 [facility]; Protocol Valproate Sodium 1,000 mg/ (Sodium Chloride) 110 mls @ 100 mls/hr IVPB Q8 [facility] Ibuprofen (Motrin Tab) 600 mg PO Q6H PRN PRN Reason: mild pain or fever >100.4 Last Admin: 12/01/17 05:49 Dose: 600 mg Lisinopril (Zestril) 20 mg PO BID [facility] Last Admin: 12/02/17 17:11 Dose: 20 mg Methimazole (Tapazole) 10 mg PO DAILY [facility] Last Admin: 12/02/17 09:27 Dose: 10 mg Nystatin (Nystop Topical Powder) 0 gm TOP BID [facility] Last Admin: 12/02/17 17:15 Dose: 1 applic Oxycodone HCl (Oxycodone Immediate Release Tab) 30 mg PO Q6 PRN PRN Reason: Pain, severe (8-10) Last Admin: 12/02/17 16:39 Dose: 30 mg Propranolol HCl (Inderal) 20 mg PO TID [facility] Last Admin: 12/02/17 17:10 Dose: 20 mg Risperidone (Risperdal Tab) 0.5 mg PO BID [facility]; Protocol Last Admin: 12/02/17 17:10 Dose: 0.5 mg Risperidone (Risperdal Tab) 0.5 mg PO HS [facility]; Protocol Last Admin: 12/01/17 21:42 Dose: 0.5 mg - Labs Labs: 12/02/17 19:17 12/02/17 19:40 Assessment and Plan - Assessment and Plan (Free Text) Assessment: 37 yr old male who may have viral encephalitis, and benefit from video EEG and LP. However, we need consent from mother to perform this, and he is not amenable.
--- NOTE | 2017-12-02 20:16 | CP.PCM.CON ---
<RehanaAmy - Last Filed: 12/02/17 23:34> History of Present Illness - History of Present Illness History of Present Illness: Amy Kimball, PGY2, ICU Consult Note for Dr Rossi: Reason for consult: seizure activity, status epilepticus 37 year old male with PMH of cervical radiculopathy w/ herniated disc, cervical spondylosis w/ myelopathy, thoracic spondylosis and depression, initially a dmitted to [facility] for acute onset of delirium, visual hallucinations. Patient remains altered through the admission, and was also spiking fevers of 102F. Patient had initially refused lumbar puncture. EEG obtained showed epilleptiform activity. Patient was started on Depakote today 1000 mg PO BID. Patient got morning dose of Depakote 1000 mg so far. Rapid response was called on the patient at 7:19 PM, where patient was unresponsive, eyes rolled back. Patient is on Oxycodone 30 mg PO q6 in the hospital. Patient was given 2 doses of narcan 0.4 mg IV, with some response - eye movement and some hand movements. He was noted to be febrile 102.8 rectal temp, HR 110s. Patient was taken down to CAT scan for a head CT, patient then dropped his HR to 60s with a sinus pause, with eyes rolled backwards again, diaphoretic, with mild accessory muscle use. Patient then taken to ICU for further monitoring. Dr Levy (neurology) consulted. Given Ativan 2 mg IVx1, Keppra 1000 mg IV, Valproic acid 1000 mg IV x1 with cessation of seizure episode. 12 point ROS unobtainable due to patient's condition. PMH: as above PSH: anterior cervical discectomy and fusion of C6-C7 (03/2015). Partial vertebrectomy of C6-C7, discectomy of C6-C7 and interbody fusion of C6-C7 w/ PEEK and bone, plating and instrucmention from C6-7 (03/2015). And T2-4 thoracic laminectomy w/ posterolateral fusion (12/2015) Meds: as per MAY Allergies: Erythromycin SHx: per natanael, former heavy tobacco smoker, currently uses vaporizer; denies EtOH and recreational drugs. 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, former shipyard work Review of Systems - Review of Systems Systems not reviewed;Unavailable: Altered Mental Status Past Patient History - Tetanus Immunizations Tetanus Immunization: Unknown - Past Medical History & Family History Past Medical History?: Yes - Past Social History Smoking Status: Never Smoked Alcohol: None Drugs: Opiates, Prescription medications Home Situation {Lives}: With Family - CARDIAC Hx Cardiac Disorders: No - PULMONARY Hx Respiratory Disorders: No - NEUROLOGICAL Hx Neurological Disorder: Yes (cervical and thoracic radiculopathy) - HEENT Hx HEENT Problems: No - RENAL Hx Chronic Kidney Disease: No - ENDOCRINE/METABOLIC Hx Endocrine Disorders: No - HEMATOLOGICAL/ONCOLOGICAL Hx Blood Disorders: No - INTEGUMENTARY Hx Dermatological Problems: No - MUSCULOSKELETAL/RHEUMATOLOGICAL Hx Back Pain: Yes Hx Degenerative Joint Disease: Yes Hx Falls: No Hx Herniated Disk: Yes - GASTROINTESTINAL Hx Gastrointestinal Disorders: No Hx Gastroesophageal Reflux: Yes Other/Comment: ACID REFLUX - GENITOURINARY/GYNECOLOGICAL Hx Genitourinary Disorders: No - PSYCHIATRIC Hx Psychophysiologic Disorder: Yes Hx Depression: Yes Hx Substance Use: No - SURGICAL HISTORY Hx Orthopedic Surgery: Yes (3 orthopedic sxs noted in HPI) - ANESTHESIA Hx Anesthesia: Yes Meds Allergies/Adverse Reactions: Allergies Allergy/AdvReac Type Severity Reaction Status Date / Time erythromycin base Allergy ITCHING Verified 11/05/17 23:35 duloxetine HCl AdvReac RASH Verified 11/05/17 23:35 [From Cymbalta] - Medications Medications: Current Medications Amlodipine Besylate (Norvasc) 10 mg PO DAILY [facility] Last Admin: 12/02/17 09:26 Dose: 10 mg Divalproex Sodium (Depakote Dr(*Bid*)) 1,000 mg PO BID [facility] Last Admin: 12/02/17 17:10 Dose: 1,000 mg Docusate Sodium (Colace) 100 mg PO BID [facility] Last Admin: 12/02/17 17:09 Dose: 100 mg Enoxaparin Sodium (Lovenox) 40 mg SC DAILY [facility]; Protocol Last Admin: 12/02/17 09:26 Dose: 40 mg Famotidine (Pepcid) 20 mg PO 1000 [facility] Last Admin: 12/02/17 09:27 Dose: 20 mg Vancomycin HCl (Vancomycin 1gm) 1 gm in 250 mls @ 167 mls/hr IVPB Q12H [facility]; Protocol Last Admin: 12/02/17 09:28 Dose: 167 mls/hr Cefepime HCl (Maxipime 1gm) 1 gm in 100 mls @ 100 mls/hr IVPB Q12 [facility]; Protocol Sodium Chloride (Sodium Chloride 0.9%) 1,000 mls @ 100 mls/hr IV .Q10H [facility] Valproate Sodium 1,000 mg/ (Sodium Chloride) 110 mls @ 100 mls/hr IVPB STAT STA Stop: 12/02/17 21:18 Ibuprofen (Motrin Tab) 600 mg PO Q6H PRN PRN Reason: mild pain or fever >100.4 Last Admin: 12/01/17 05:49 Dose: 600 mg Lisinopril (Zestril) 20 mg PO BID [facility] Last Admin: 12/02/17 17:11 Dose: 20 mg Methimazole (Tapazole) 10 mg PO DAILY [facility] Last Admin: 12/02/17 09:27 Dose: 10 mg Nystatin (Nystop Topical Powder) 0 gm TOP BID [facility] Last Admin: 12/02/17 17:15 Dose: 1 applic Oxycodone HCl (Oxycodone Immediate Release Tab) 30 mg PO Q6 PRN PRN Reason: Pain, severe (8-10) Last Admin: 12/02/17 16:39 Dose: 30 mg Propranolol HCl (Inderal) 20 mg PO TID [facility] Last Admin: 12/02/17 17:10 Dose: 20 mg Risperidone (Risperdal Tab) 0.5 mg PO BID [facility]; Protocol Last Admin: 12/02/17 17:10 Dose: 0.5 mg Risperidone (Risperdal Tab) 0.5 mg PO HS [facility]; Protocol Last Admin: 12/01/17 21:42 Dose: 0.5 mg Physical Exam - Constitutional Appears: Toxic Additional comments: eyes rolled back - Head Exam Head Exam: ATRAUMATIC, NORMOCEPHALIC - Eye Exam Additional comments: pupils equal b/l, minimally reactive, + corneal reflex - ENT Exam ENT Exam: Mucous Membranes Moist - Respiratory Exam Respiratory Exam: Clear to Auscultation Bilateral, NORMAL BREATHING PATTERN. absent: Rhonchi, Wheezes, Stridor - Cardiovascular Exam Cardiovascular Exam: Tachycardia, +S1, +S2 - GI/Abdominal Exam GI & Abdominal Exam: Normal Bowel Sounds, Soft. absent: Distended, Organomegaly, Tenderness - Extremities Exam Extremities exam: Positive for: normal inspection. Negative for: calf tend erness, pedal edema - Back Exam Back exam: NORMAL INSPECTION - Neurological Exam Neurological exam: Altered - Skin Skin Exam: Diaphoretic, Normal Color, Warm Results - Vital Signs Recent Vital Signs: Last Vital Signs Temp 98.6 F 12/02/17 17:25 Pulse 118 H 12/02/17 18:00 Resp 20 12/02/17 17:25 BP 162/98 H 12/02/17 17:25 Pulse Ox 98 12/02/17 17:25 - Labs Result Diagrams: 12/02/17 19:17 12/02/17 19:40 Labs: Laboratory Results - last 24 hr 12/02/17 12/02/17 12/02/17 06:30 06:30 18:33 WBC 5.6 D RBC 3.50 Hgb 10.0 L Hct 31.5 L MCV 90.0 MCH 28.6 MCHC 31.7 RDW 15.5 H Plt Count 216 MPV 8.8 Gran % 63.1 Lymph % (Auto) 24.5 Hardy % (Auto) 12.0 H Eos % (Auto) 0.4 L Baso % (Auto) 0.0 Gran # 3.54 Lymph # (Auto) 1.4 Hardy # (Auto) 0.7 H Eos # (Auto) 0.0 Baso # (Auto) 0.00 Sodium 137 Potassium 3.7 Chloride 97 L Carbon Dioxide 34 H Anion Gap 10 BUN 10 Creatinine 0.4 L Est GFR ( Amer) > 60 Est GFR (Non-Af Amer) > 60 POC Glucose (mg/dL) 163 H Random Glucose 100 Calcium 8.9 Phosphorus 4.2 Magnesium 2.1 Total Bilirubin 0.3 AST 48 ALT 59 H Alkaline Phosphatase 58 Total Protein 7.0 Albumin 3.2 Globulin 3.8 Albumin/Globulin Ratio 0.9 L 12/02/17 12/02/17 12/02/17 19:13 19:17 19:40 WBC 11.3 H D RBC 3.82 Hgb 11.2 L Hct 33.0 L MCV 86.4 D MCH 29.3 MCHC 33.9 RDW 15.0 H Plt Count 300 MPV 8.7 Gran % 85.4 H Lymph % (Auto) 7.5 L Hardy % (Auto) 7.0 H Eos % (Auto) 0.1 L Baso % (Auto) 0.0 Gran # 9.64 H Lymph # (Auto) 0.9 L Hardy # (Auto) 0.8 H Eos # (Auto) 0.0 Baso # (Auto) 0.00 Sodium 131 L Potassium 3.8 Chloride 95 L Carbon Dioxide 25 Anion Gap 15 BUN 12 Creatinine 0.4 L Est GFR ( Amer) > 60 Est GFR (Non-Af Amer) > 60 POC Glucose (mg/dL) 139 H Random Glucose 142 H Calcium 8.5 Phosphorus 2.5 Magnesium 1.9 Total Bilirubin 0.5 AST 37 ALT 55 Alkaline Phosphatase 61 Total Protein 7.4 Albumin 3.6 Globulin 3.8 Albumin/Globulin Ratio 0.9 L Assessment & Plan - Assessment and Plan (Free Text) Assessment: 37 year old male with PMH of cervical radiculopathy w/ herniated disc, cervical spondylosis w/ myelopathy, thoracic spondylosis and depression, initially presented to [facility] for acute delirium, admitted to ICU for concern for status epilepticus: Neurology: - responds to sternal rub, + corneal reflexed present b/l - EEG showed epilleptiform activity - Given 2 mg Ativan IV, keppra 1000 mg IV, Depakote 1000 mg IV x1 time doses durin - Started on Depakote 1000 mg PO BID - neuro checks, seizure precautions, aspiration precautions - CT head neg for acute changes - Will give depakote 1000 mg BID for now - Neurology on board. Will f/u recs Resp: - ABG obtained and reviewed: pH 7.50, pCO2 34, pO2 144. HCO3 26.5 on 32% FiO2 - comfortable on NC. - Monitor Cardio: - HR 90s now. - initial trop negx1, EKG f/u read - BP 167/125, given hydralazine 5 mg IV - Maintain MAP>65, avoid hypertensive episodes GI: NPO for now. Pepcid IV Renal: BUN/Cr 12/0.4. Na 131. Cl 95. Started on NS@ 100/hr. Maintain euvolemia, replace lytes. Endo: BG 142 now. Maintain euglycemia. ID: T 102.8, wbc 11.3. Blood cultures, urine cultures neg so far. PPX: pepcid, lovenox sq Case seen and discussed with Dr Rossi. <Kwame Rossi - Last Filed: 12/03/17 03:52> Meds - Medications Medications: Current Medications Amlodipine Besylate (Norvasc) 10 mg PO DAILY [facility] Last Admin: 12/02/17 09:26 Dose: 10 mg Divalproex Sodium (Depakote Dr(*Bid*)) 1,000 mg PO BID [facility] Last Admin: 12/02/17 17:10 Dose: 1,000 mg Docusate Sodium (Colace) 100 mg PO BID [facility] Last Admin: 12/02/17 17:09 Dose: 100 mg Enoxaparin Sodium (Lovenox) 40 mg SC DAILY [facility]; Protocol Last Admin: 12/02/17 09:26 Dose: 40 mg Famotidine (Pepcid) 20 mg IVP DAILY [facility] Vancomycin HCl (Vancomycin 1gm) 1 gm in 250 mls @ 167 mls/hr IVPB Q12H [facility]; Protocol Last Admin: 12/02/17 22:00 Dose: 167 mls/hr Cefepime HCl (Maxipime 1gm) 1 gm in 100 mls @ 100 mls/hr IVPB Q12 [facility]; Protocol Last Admin: 12/02/17 21:25 Dose: 100 mls/hr Sodium Chloride (Sodium Chloride 0.9%) 1,000 mls @ 100 mls/hr IV .Q10H [facility] Last Admin: 12/02/17 22:00 Dose: 100 mls/hr NOREPINEPHRINE BIT/0.9 % NACL (Levophed 4 Mg/ 250 Ml Ns Premixed) 4 mg in 250 mls @ 112.5 mls/hr IV .Q2H14M PRN; Protocol PRN Reason: TITRATE PER MD ORDER Ibuprofen (Motrin Tab) 600 mg PO Q6H PRN PRN Reason: mild pain or fever >100.4 Last Admin: 12/01/17 05:49 Dose: 600 mg Lisinopril (Zestril) 20 mg PO BID [facility] Last Admin: 12/02/17 17:11 Dose: 20 mg Methimazole (Tapazole) 10 mg PO DAILY [facility] Last Admin: 12/02/17 09:27 Dose: 10 mg Nystatin (Nystop Topical Powder) 0 gm TOP BID [facility] Last Admin: 12/02/17 17:15 Dose: 1 applic Risperidone (Risperdal Tab) 0.5 mg PO BID [facility]; Protocol Last Admin: 12/02/17 17:10 Dose: 0.5 mg Risperidone (Risperdal Tab) 0.5 mg PO HS [facility]; Protocol Last Admin: 12/02/17 21:50 Dose: Not Given Results - Vital Signs Recent Vital Signs: Last Vital Signs Temp 98.6 F 12/03/17 01:20 Pulse 110 H 12/03/17 01:20 Resp 15 12/02/17 22:39 BP 93/53 L 12/03/17 01:06 Pulse Ox 97 12/03/17 01:20 - Labs Result Diagrams: 12/02/17 19:17 12/02/17 19:40 Labs: Laboratory Results - last 24 hr 12/02/17 12/02/17 12/02/17 06:30 06:30 18:33 WBC 5.6 D RBC 3.50 Hgb 10.0 L Hct 31.5 L MCV 90.0 MCH 28.6 MCHC 31.7 RDW 15.5 H Plt Count 216 MPV 8.8 Gran % 63.1 Lymph % (Auto) 24.5 Hardy % (Auto) 12.0 H Eos % (Auto) 0.4 L Baso % (Auto) 0.0 Gran # 3.54 Lymph # (Auto) 1.4 Hardy # (Auto) 0.7 H Eos # (Auto) 0.0 Baso # (Auto) 0.00 D-Dimer, Quantitative pCO2 pO2 HCO3 ABG pH ABG Total CO2 ABG O2 Saturation ABG O2 Content ABG Base Excess ABG Hemoglobin ABG Carboxyhemoglobin POC ABG HHb (Measured) ABG Methemoglobin ABG O2 Capacity Hgb O2 Saturation FiO2 Sodium 137 Potassium 3.7 Chloride 97 L Carbon Dioxide 34 H Anion Gap 10 BUN 10 Creatinine 0.4 L Est GFR ( Amer) > 60 Est GFR (Non-Af Amer) > 60 POC Glucose (mg/dL) 163 H Random Glucose 100 Calcium 8.9 Phosphorus 4.2 Magnesium 2.1 Total Bilirubin 0.3 AST 48 ALT 59 H Alkaline Phosphatase 58 Troponin I Total Protein 7.0 Albumin 3.2 Globulin 3.8 Albumin/Globulin Ratio 0.9 L Valproic Acid 12/02/17 12/02/17 12/02/17 19:13 19:17 19:40 WBC 11.3 H D RBC 3.82 Hgb 11.2 L Hct 33.0 L MCV 86.4 D MCH 29.3 MCHC 33.9 RDW 15.0 H Plt Count 300 MPV 8.7 Gran % 85.4 H Lymph % (Auto) 7.5 L Hardy % (Auto) 7.0 H Eos % (Auto) 0.1 L Baso % (Auto) 0.0 Gran # 9.64 H Lymph # (Auto) 0.9 L Hardy # (Auto) 0.8 H Eos # (Auto) 0.0 Baso # (Auto) 0.00 D-Dimer, Quantitative pCO2 pO2 HCO3 ABG pH ABG Total CO2 ABG O2 Saturation ABG O2 Content ABG Base Excess ABG Hemoglobin ABG Carboxyhemoglobin POC ABG HHb (Measured) ABG Methemoglobin ABG O2 Capacity Hgb O2 Saturation FiO2 Sodium 131 L Potassium 3.8 Chloride 95 L Carbon Dioxide 25 Anion Gap 15 BUN 12 Creatinine 0.4 L Est GFR ( Amer) > 60 Est GFR (Non-Af Amer) > 60 POC Glucose (mg/dL) 139 H Random Glucose 142 H Calcium 8.5 Phosphorus 2.5 Magnesium 1.9 Total Bilirubin 0.5 AST 37 ALT 55 Alkaline Phosphatase 61 Troponin I < 0.01 Total Protein 7.4 Albumin 3.6 Globulin 3.8 Albumin/Globulin Ratio 0.9 L Valproic Acid 12/02/17 12/02/17 12/02/17 20:01 22:09 23:25 WBC RBC Hgb Hct MCV MCH MCHC RDW Plt Count MPV Gran % Lymph % (Auto) Hardy % (Auto) Eos % (Auto) Baso % (Auto) Gran # Lymph # (Auto) Hardy # (Auto) Eos # (Auto) Baso # (Auto) D-Dimer, Quantitative 6102 H pCO2 34 L pO2 144.0 H HCO3 26.5 ABG pH 7.50 H ABG Total CO2 27.5 ABG O2 Saturation 99.6 H ABG O2 Content 15.0 ABG Base Excess 3.4 H ABG Hemoglobin 10.8 L ABG Carboxyhemoglobin 1.6 H POC ABG HHb (Measured) 0.4 ABG Methemoglobin 1.4 ABG O2 Capacity 15.1 L Hgb O2 Saturation 96.6 FiO2 32.0 Sodium Potassium Chloride Carbon Dioxide Anion Gap BUN Creatinine Est GFR ( Amer) Est GFR (Non-Af Amer) POC Glucose (mg/dL) 149 H Random Glucose Calcium Phosphorus Magnesium Total Bilirubin AST ALT Alkaline Phosphatase Troponin I Total Protein Albumin Globulin Albumin/Globulin Ratio Valproic Acid 12/02/17 12/02/17 23:25 23:25 WBC RBC Hgb Hct MCV MCH MCHC RDW Plt Count MPV Gran % Lymph % (Auto) Hardy % (Auto) Eos % (Auto) Baso % (Auto) Gran # Lymph # (Auto) Hardy # (Auto) Eos # (Auto) Baso # (Auto) D-Dimer, Quantitative pCO2 pO2 HCO3 ABG pH ABG Total CO2 ABG O2 Saturation ABG O2 Content ABG Base Excess ABG Hemoglobin ABG Carboxyhemoglobin POC ABG HHb (Measured) ABG Methemoglobin ABG O2 Capacity Hgb O2 Saturation FiO2 Sodium Potassium Chloride Carbon Dioxide Anion Gap BUN Creatinine Est GFR ( Amer) Est GFR (Non-Af Amer) POC Glucose (mg/dL) Random Glucose Calcium Phosphorus Magnesium Total Bilirubin AST ALT Alkaline Phosphatase Troponin I < 0.01 Total Protein Albumin Globulin Albumin/Globulin Ratio Valproic Acid 49 L Attending/Attestation - Attestation I have personally seen and examined this patient.: Yes I have fully participated in the care of the patient.: Yes I have reviewed all pertinent clinical information: Yes Notes (Text): 12/03/17 03:52 Agree with above documentation.
[2017-12-02] MEDS: Valproate 1,000 MG in Sodium Chloride 0.9% 100 ML IVPB SCH ×3 (20:25→21:00)
--- NOTE | 2017-12-02 20:30 | PCM.VEEG ---
Video EEG - Procedure Start Date: 12/01/17 Start Time: 19:37 End Date: 12/02/17 End Time: 15:00 Technical Summary: This is a 24 hour video eeg acquired using electrodes placed using the the 10-20 international electrode placement. All electrodes were referenced to A1 A2, and spike detection software was employed. - Interpretation Description of the study: background rhythm: The background was a slow, 6-7 hz background rhythm that at times was not well sustained and admixed with polymorphic delta and theta activity. EEG Finding during wakefulness: 6-7 hz alpha rhythm EEG Finding during sleep: No normal sleep was captured. Interictal non-epileptiform abnormalities: none Ictal epileptiform abnormalities: THere were several events that are interpreted as seizures, starting from the left temporal region, starting as a rhythmic 4 hz delta that becomes admixed with theta and spreads to the right temporal region, and then defervesces. This occurs several times during the record. These are most likely subclinical seizures. - Impression Impression: This is an abnormal awake and sleep 24 hour video eeg. THere are several subclinical electrographic seizures throughout the record and it shows a picture of encephalopathy. Clinical correlation is required. Dr. Van Levy MD, DPN. Epileptology, Neurology
[2017-12-02 21:10] LABS: TROPONIN I < 0.01 ng/mL
[2017-12-02] MEDS: Cefepime 1gm in NS 100ml 1 GM/100 ML BAG IVPB SCH (21:25)
[2017-12-02] MEDS: Sodium Chloride 0.9% 1,000 ML IV SCH (22:00)
[2017-12-02] MEDS ORDERED: NOREPINEPHRINE BIT/0.9 % NACL 4 MG/250 ML BAG IV ONE (22:31)
--- NOTE | 2017-12-02 22:50 | PCM.RRT ---
<ShankarManan - Last Filed: 12/02/17 23:19> CAR SANDER Nurse Assessment - Situation Date: 12/02/17 Time CAR SANDER was called: 18:33 CAR SANDER Responder Arrival Time: 06:33 CAR SANDER Location:: Critical Care Unit Room Number: 128-01 CAR SANDER Reason for Call: Bradycardia CAR SANDER Called By: RN - IV IV Inserted during CAR SANDER?: Yes - Respiratory Oxygen Delivery Method: Nasal Cannula @L/min, Intubated Oxygen Flow Rate: 3 Received Nebulizer Treatments:: No Was the Patient Intubated?: Yes Was the Patient Placed on a Ventilator?: Yes - Ventilator Settings Ventilator Respiratory Rate Settin Ventilator Tidal Volume Settin PEEP: 5 Peak Flow: 17 - Medication Medications Administered During CAR SANDER: Narcan 0.4 Push. Narcan 0.4 Push. Tylenol 650 Suppository - Diagnostic Test Ordered EKG: Yes Chest X-Ray: Yes CT Scan: Yes Other Diagnostic Test Ordered: ECHO - Stat Labs Ordered CAR SANDER Stat Labs Ordered: CBC, BMP, PT/PTT, TROPONIN, LACTIC ACID, ABG CPR started during CAR SANDER?: Yes - Vital Signs Vital Sign: Rapid Response Vital Sign Blood Pressure 165/117 Pulse Rate 115 Respiratory Rate 17 Temperature 102.8 F - Finger Stick Blood Glucose Finger Stick Blood Glucose: 163 - Ja Coma Scale Coma Scale Eye Opening: No response Coma Scale Motor: None Coma Scale Verbal: No response - Sepsis Screen Part 1 Sepsis Screen Part 1: Temperature over 100.6F - Time CAR SANDER Ended Time CAR SANDER Ended: 18:44 - Vital Signs at end of CAR SANDER Vital Signs at end of CAR SANDER: Rapid Response End Vital Sign Blood Pressure 167/125 - Recommendations 5) CAR SANDER Level of Care Recommendations: Remain in current setting (remains in ICU) Notifications: Attending Physician, Family or Designated Caregiver I.Reason for CAR SANDER - A) Acute Change in Patient: (Select all that apply): Acute change in heart rate less than 50 or greater than 120 Subjective: became unresponsive, went into PEA, a code blue was called - Neurological Status (Select all that apply): absent: Follows Commands - Respiratory Oxygen Delivery Method: Intubated Oxygen Flow Rate: 3 - Head Head Exam: ATRAUMATIC, NORMOCEPHALIC - Respiratory Exam Respiratory Exam: Clear to Ausculation Bilateral. absent: Accessory Muscle Use Additional comments: intubated - Cardiovascular Exam Cardiovascular Exam: Tachycardia, +S1, +S2 - GI/Abdominal Exam GI & Abdominal Exam: Soft, Normal Bowel Sounds - Neurological Exam Neurological Exam: Altered Additional exam: pt unresponsive - Extremities Exam Extremities Exam: absent: Pedal Edema Plan - Assessment of Findings&Treatment Plan Pt is a 37 yo male with PMH of back surgeries who presented to the ED with acute delirium. CAR SANDER was called at 7:30PM as pt was unresponsive, found to be seizing, given anti epileptic drugs and transfered to ICU. Code blue #1 At 22:01 pt then had bradycardia, HR 40's given Atropine 0.5 IV x1. Pt had asystole on monitor. ACLS protocol was initiated. After 2 rounds of epi, ROSC but unresponsive, intubated. Code blue #2 At 22:31 pt then had another episode of PEA. ACLS protocol was initiated. After 2 rounds of epi and initiation of levofed gtt, ROSC was achieved, pt still unresponsive. Family at bedside. Cardiology notified, Dr Sierra. <Kwame Rossi - Last Filed: 12/03/17 04:08> CAR SANDER Nurse Assessment - Vital Signs Vital Sign: Rapid Response Vital Sign Blood Pressure 165/117 Pulse Rate 115 Respiratory Rate 17 Temperature 102.8 F - Vital Signs at end of CAR SANDER Vital Signs at end of CAR SANDER: Rapid Response End Vital Sign Blood Pressure 167/125 Attending/Attestation - Attestation I have personally seen and examined this patient.: Yes I have fully participated in the care of the patient.: Yes I have reviewed all pertinent clinical information, including history, physical exam and plan: Yes
[2017-12-02] MEDS: NOREPINEPHRINE BIT/0.9 % NACL 4 MG/250 ML BAG IV PRN (23:30)
--- NOTE | 2017-12-02 23:48 | CP.PCM.PN ---
<Amy Kimball - Last Filed: 12/03/17 00:04> Subjective - Date & Time of Evaluation Date of Evaluation: 12/02/17 Time of Evaluation: 23:42 - Subjective Subjective: Spoke with Dr Sierra after 2 Code Blue. Discussed that patient went into bradycardia, HR 40s, given atropine 0.5 mg IV. Then patient went into PEA, code blue called. Patient's EKG reports communicated. EKG after 1st code blue showed new T wave inversions in Leads II, III, and ST depressions in V2, V3, V4. QTc prolonged at 480 ms. Repeat EKG after 2nd Code blue had no such changes noted, had returned back to his baseline. Less likely cardiac etiology, as per Dr Sierra. Instructed to put an external pacemaker and use atropine for HR<35. Spoke with Dr Levy regarding patient's video EEG. It shows a completely flat line, with very poor prognosis. Will discontinue EEG in the morning, will obtain head CT in AM after EEG is discontinued. Discussed with attending, Dr Rossi. Objective - Vital Signs/Intake and Output Vital Signs (last 24 hours): Temp Pulse Resp BP Pulse Ox 98.6 F 100 H 20 169/102 H 98 12/02/17 17:25 12/02/17 19:40 12/02/17 17:25 12/02/17 19:40 12/02/17 17:25 Intake and Output: 12/02/17 12/03/17 18:59 06:59 Intake Total 1110 Output Total 1100 Balance 10 - Medications Medications: Current Medications Amlodipine Besylate (Norvasc) 10 mg PO DAILY [facility] Last Admin: 12/02/17 09:26 Dose: 10 mg Divalproex Sodium (Depakote Dr(*Bid*)) 1,000 mg PO BID [facility] Last Admin: 12/02/17 17:10 Dose: 1,000 mg Docusate Sodium (Colace) 100 mg PO BID [facility] Last Admin: 12/02/17 17:09 Dose: 100 mg Enoxaparin Sodium (Lovenox) 40 mg SC DAILY [facility]; Protocol Last Admin: 12/02/17 09:26 Dose: 40 mg Famotidine (Pepcid) 20 mg IVP DAILY [facility] Vancomycin HCl (Vancomycin 1gm) 1 gm in 250 mls @ 167 mls/hr IVPB Q12H [facility]; Protocol Last Admin: 12/02/17 22:00 Dose: 167 mls/hr Cefepime HCl (Maxipime 1gm) 1 gm in 100 mls @ 100 mls/hr IVPB Q12 [facility]; Protocol Last Admin: 12/02/17 21:25 Dose: 100 mls/hr Sodium Chloride (Sodium Chloride 0.9%) 1,000 mls @ 100 mls/hr IV .Q10H [facility] Last Admin: 12/02/17 22:00 Dose: 100 mls/hr NOREPINEPHRINE BIT/0.9 % NACL (Levophed 4 Mg/ 250 Ml Ns Premixed) 4 mg in 250 mls @ 112.5 mls/hr IV .Q2H14M PRN; Protocol PRN Reason: TITRATE PER MD ORDER Ibuprofen (Motrin Tab) 600 mg PO Q6H PRN PRN Reason: mild pain or fever >100.4 Last Admin: 12/01/17 05:49 Dose: 600 mg Lisinopril (Zestril) 20 mg PO BID [facility] Last Admin: 12/02/17 17:11 Dose: 20 mg Methimazole (Tapazole) 10 mg PO DAILY [facility] Last Admin: 12/02/17 09:27 Dose: 10 mg Nystatin (Nystop Topical Powder) 0 gm TOP BID [facility] Last Admin: 12/02/17 17:15 Dose: 1 applic Risperidone (Risperdal Tab) 0.5 mg PO BID [facility]; Protocol Last Admin: 12/02/17 17:10 Dose: 0.5 mg Risperidone (Risperdal Tab) 0.5 mg PO HS [facility]; Protocol Last Admin: 12/02/17 21:50 Dose: Not Given - Labs Labs: 12/02/17 19:17 12/02/17 19:40 <Kwame Rossi - Last Filed: 12/03/17 04:02> Objective - Vital Signs/Intake and Output Vital Signs (last 24 hours): Temp Pulse Resp BP Pulse Ox 98.6 F 110 H 15 93/53 L 97 12/03/17 01:20 12/03/17 01:20 12/02/17 22:39 12/03/17 01:06 12/03/17 01:20 Intake and Output: 12/02/17 12/03/17 18:59 06:59 Intake Total 1110 500 Output Total 1100 Balance 10 500 - Medications Medications: Current Medications Amlodipine Besylate (Norvasc) 10 mg PO DAILY [facility] Last Admin: 12/02/17 09:26 Dose: 10 mg Divalproex Sodium (Depakote Dr(*Bid*)) 1,000 mg PO BID [facility] Last Admin: 12/02/17 17:10 Dose: 1,000 mg Docusate Sodium (Colace) 100 mg PO BID [facility] Last Admin: 12/02/17 17:09 Dose: 100 mg Enoxaparin Sodium (Lovenox) 40 mg SC DAILY [facility]; Protocol Last Admin: 12/02/17 09:26 Dose: 40 mg Famotidine (Pepcid) 20 mg IVP DAILY [facility] Vancomycin HCl (Vancomycin 1gm) 1 gm in 250 mls @ 167 mls/hr IVPB Q12H [facility]; Protocol Last Admin: 12/02/17 22:00 Dose: 167 mls/hr Cefepime HCl (Maxipime 1gm) 1 gm in 100 mls @ 100 mls/hr IVPB Q12 [facility]; Protocol Last Admin: 12/02/17 21:25 Dose: 100 mls/hr Sodium Chloride (Sodium Chloride 0.9%) 1,000 mls @ 100 mls/hr IV .Q10H [facility] Last Admin: 12/02/17 22:00 Dose: 100 mls/hr NOREPINEPHRINE BIT/0.9 % NACL (Levophed 4 Mg/ 250 Ml Ns Premixed) 4 mg in 250 mls @ 112.5 mls/hr IV .Q2H14M PRN; Protocol PRN Reason: TITRATE PER MD ORDER Ibuprofen (Motrin Tab) 600 mg PO Q6H PRN PRN Reason: mild pain or fever >100.4 Last Admin: 12/01/17 05:49 Dose: 600 mg Lisinopril (Zestril) 20 mg PO BID [facility] Last Admin: 12/02/17 17:11 Dose: 20 mg Methimazole (Tapazole) 10 mg PO DAILY [facility] Last Admin: 12/02/17 09:27 Dose: 10 mg Nystatin (Nystop Topical Powder) 0 gm TOP BID [facility] Last Admin: 12/02/17 17:15 Dose: 1 applic Risperidone (Risperdal Tab) 0.5 mg PO BID [facility]; Protocol Last Admin: 12/02/17 17:10 Dose: 0.5 mg Risperidone (Risperdal Tab) 0.5 mg PO HS [facility]; Protocol Last Admin: 12/02/17 21:50 Dose: Not Given - Labs Labs: 12/02/17 19:17 12/02/17 19:40 Attending/Attestation - Attestation I have personally seen and examined this patient.: Yes I have fully participated in the care of the patient.: Yes I have reviewed all pertinent clinical information, including history, physical exam and plan: Yes Notes (Text): 12/03/17 03:54 Attended to CODE BLUE promptly. He had bradycardia->asystole. Was intubated with size 7.5 ETT,position was confirmed by direct visualization, CO2 detector, CXR,auscultation. Sinus rhythm, Blood pressure regained. He coded second time, ACLS protocols followed, were successful. He was started on levophed drip. Spoke to , . Spoke to family members after knowing that there was presence of flat line on video EEG. CC time spent was 30 minutes.
[2017-12-03] MEDS: NOREPINEPHRINE BIT/0.9 % NACL 4 MG/250 ML BAG IV PRN ×5 (01:02→23:04)
[2017-12-03] MEDS ORDERED: NOREPINEPHRINE BIT/0.9 % NACL 4 MG/250 ML BAG IV PRN (03:44)
--- NOTE | 2017-12-03 04:05 | PN ---
DATE: 12/02/2017 It was notified by the medical team that the patient arrested twice. The first time the patient was having seizures; however, at that time, he was in sinus risk. Blood pressure was elevated. The patient was taken for CAT scan, and in his way back, the patient became bradycardic, required CPR and IV atropine, and was intubated, admitted to ICU. While the patient on the ventilator, he had another bradyarrhythmic episode that required another resuscitation. The two EKGs that were done post code, the first one revealed sinus risk with ST depression that improved in a subsequent EKG. There was no ventricular tachycardia reported. The patient was briefly hypotensive. Head CT scan report is still pending. EEG report for the study that was performed yesterday revealed an abnormal awake and sleep 24-hour video EEG. There are several subclinical electrographic seizures throughout the report and it shows a picture of encephalopathy. Case was discussed at length with the medical team including Dr. Rossi. The patient will be observed in the ICU on ventilatory support with a standby atropine. An external pacemaker will be applied. EP consult by Dr. Tomi Folye will be obtained as well as a consent from the mother for a possible temporary transvenous pacemaker. In my opinion, the entire bradyarrhythmic events are not primarily cardiac, but they are secondary to other comorbid problems including seizures with subsequent hypoxemia and the possible loading of intravenous Depakote and intravenous Ativan that happened prior to the first bradyarrhythmic arrest and in the meantime, I discontinued Inderal. Stiven Sierra MD
[2017-12-03 04:44] LABS: PH,URINE 7.5 (4.7-8.0); URINE BILIRUBIN NEGATIVE (NEGATIVE); URINE BLOOD NEGATIVE (NEGATIVE); URINE GLUCOSE (UA) NEGATIVE (NEGATIVE); URINE LEUKOCYTE ESTERASE NEGATIVE Leu/uL (NEGATIVE); URINE PROTEIN 30 mg/dL (<30 mg/dL)
[2017-12-03 04:51] LABS: URINE APPEARANCE SLIGHT-CLOUDY (CLEAR)
[2017-12-03 05:04] LABS: URINE AMORPHOUS SEDIMENT MODERATE
[2017-12-03 05:46] LABS: BASO # 0.01 K/mm3 (0.0-2.0); BASO % 0.1 % (0.0-3.0); GRAN # 11.19 (1.4-6.5); GRAN % 79.4 % (50.0-68.0); HEMOGLOBIN 10.8 g/dL (14.0-18.0); LYMPH % 13.8 % (22.0-35.0); MEAN CELL VOLUME 87.9 fl (80.0-105.0); MEAN CORPUSCULAR HEMOGLOBIN 28.3 pg (25.0-35.0); MEAN CORPUSCULAR HGB CONC 32.2 g/dl (31.0-37.0); MEAN PLATELET VOLUME 8.6 fl (7.0-11.0); MONO % 6.7 % (1.0-6.0); RBC 3.81 10^6/uL (3.5-6.1); RED CELL DISTRIBUTION WIDTH 15.5 % (11.5-14.5); WHITE BLOOD COUNT 14.1 10^3/ul (4.5-11.0)
[2017-12-03] MEDS ORDERED: Morphine 2 mg/ml ISec IVP STA (05:48)
[2017-12-03 06:06] LABS: ALB/GLOB RATIO 0.9 (1.1-1.8); ALBUMIN 3.3 g/dL (3.0-4.8); ALT/SGPT 71 U/L (7-56); AST/SGOT 41 U/L (17-59); BLOOD UREA NITROGEN 16 mg/dL (7-21); CALCIUM 9.2 mg/dL (8.4-10.5); GFR NON-AFRICAN AMERICAN > 60
[2017-12-03 06:11] LABS: TROPONIN I 0.04 ng/mL
[2017-12-03 07:41] LABS: ARTERIAL BLOOD GAS HCO3 24.3 mmol/L (21-28); ARTERIAL BLOOD GAS HEMOGLOBIN 9.8 g/dL (11.7-17.4); ARTERIAL BLOOD GAS O2 CAPACITY 13.6 mL/dl (16-24); ARTERIAL BLOOD GAS O2 CONTENT 13.4 ML/dl (15-23); ARTERIAL BLOOD GAS O2 SAT 98.8 % (95-98); ARTERIAL BLOOD GAS PCO2 35 mm/Hg (35-45); ARTERIAL BLOOD GAS PH 7.45 (7.35-7.45); ARTERIAL BLOOD GAS TCO2 25.4 mmol.L (22-28)
[2017-12-03] MEDS: ACYCLOVIR IV SCH ×2 (08:28→13:57)
[2017-12-03] MEDS: SODIUM CHLORIDE 0.9% IV SCH ×2 (08:28→13:57)
[2017-12-03] MEDS: Cefepime IV 2 gm in NS 2 GM/100 ML BAG IVPB SCH ×3 (08:29→22:27)
[2017-12-03] MEDS: Cefepime 1gm in NS 100ml 1 GM/100 ML BAG IVPB SCH (09:37)
[2017-12-03] MEDS: Enoxaparin 40 mg Syringe SC SCH (09:49)
[2017-12-03] MEDS: Divalproex 500 mg DR(BID formulation) PO SCH (09:50)
[2017-12-03] MEDS: Nystatin 100,000 Units/gm Topical Pow(15 gm) TOP SCH ×2 (10:06→17:54)
[2017-12-03] MEDS ORDERED: Valproic Acid 250 mg/5 ml UD Cup PO SCH ×2 (10:15→10:30)
--- NOTE | 2017-12-03 11:39 | CP.PCM.PN ---
Subjective - Date & Time of Evaluation Date of Evaluation: 12/03/17 Time of Evaluation: 10:30 - Subjective Subjective: Noted events overnight. The patient apparently had a seizure episode and the patient went into cardiorespiratory arrest after CT scan of the head was done and was resuscitated. He had another episode, resuscitated and intubated. He is now in the ICU on the ventilator, unresponsive, developed fevers overnight. Objective - Vital Signs/Intake and Output Vital Signs (last 24 hours): Temp Pulse Resp BP Pulse Ox 98.6 F 110 H 15 93/53 L 97 12/03/17 01:20 12/03/17 06:00 12/02/17 22:39 12/03/17 01:06 12/03/17 01:20 Intake and Output: 12/03/17 12/03/17 06:59 18:59 Intake Total 751 1902 Output Total 3000 Balance 751 -1098 - Medications Medications: Current Medications Amlodipine Besylate (Norvasc) 10 mg PO DAILY [facility] Last Admin: 12/02/17 09:26 Dose: 10 mg Divalproex Sodium (Depakote Dr(*Bid*)) 1,000 mg PO BID [facility] Last Admin: 12/02/17 17:10 Dose: 1,000 mg Docusate Sodium (Colace) 100 mg PO BID [facility] Last Admin: 12/02/17 17:09 Dose: 100 mg Enoxaparin Sodium (Lovenox) 40 mg SC DAILY [facility]; Protocol Last Admin: 12/02/17 09:26 Dose: 40 mg Famotidine (Pepcid) 20 mg IVP DAILY [facility] Vancomycin HCl (Vancomycin 1gm) 1 gm in 250 mls @ 167 mls/hr IVPB Q12H [facility]; Protocol Last Admin: 12/02/17 22:00 Dose: 167 mls/hr Cefepime HCl (Maxipime 1gm) 1 gm in 100 mls @ 100 mls/hr IVPB Q12 [facility]; Protocol Last Admin: 12/02/17 21:25 Dose: 100 mls/hr Sodium Chloride (Sodium Chloride 0.9%) 1,000 mls @ 100 mls/hr IV .Q10H [facility] Last Admin: 12/02/17 22:00 Dose: 100 mls/hr NOREPINEPHRINE BIT/0.9 % NACL (Levophed 4 Mg/ 250 Ml Ns Premixed) 4 mg in 250 mls @ 112.5 mls/hr IV .Q2H14M PRN; Protocol PRN Reason: TITRATE PER MD ORDER Last Titration: 12/03/17 08:05 Dose: 9 mcg/min, 33.75 mls/hr Cefepime HCl (Maxipime 2gm) 2 gm in 100 mls @ 100 mls/hr IVPB Q8 [facility]; Protocol Stop: 12/08/17 07:46 Ampicillin Sodium/Sulbactam (Sodium 3 gm/ Sodium Chloride) 100 mls @ 200 mls/hr IVPB Q6 [facility]; Protocol Acyclovir 10 mg/ Sodium (Chloride) 100 mls @ 100 mls/hr IV Q8 [facility]; Protocol Ibuprofen (Motrin Tab) 600 mg PO Q6H PRN PRN Reason: mild pain or fever >100.4 Last Admin: 12/01/17 05:49 Dose: 600 mg Lisinopril (Zestril) 20 mg PO BID [facility] Last Admin: 12/02/17 17:11 Dose: 20 mg Methimazole (Tapazole) 10 mg PO DAILY [facility] Last Admin: 12/02/17 09:27 Dose: 10 mg Nystatin (Nystop Topical Powder) 0 gm TOP BID [facility] Last Admin: 12/02/17 17:15 Dose: 1 applic Oseltamivir Phosphate (Tamiflu Cap) 75 mg PO BID [facility]; Protocol Stop: 12/08/17 07:57 Risperidone (Risperdal Tab) 0.5 mg PO BID [facility]; Protocol Last Admin: 12/02/17 17:10 Dose: 0.5 mg Risperidone (Risperdal Tab) 0.5 mg PO HS [facility]; Protocol Last Admin: 12/02/17 21:50 Dose: Not Given - Labs Labs: 12/03/17 05:00 12/03/17 05:00 - Constitutional Appears: Chronically Ill, Other (intubated, unresponsive) - Head Exam Additional comments: dry dressings over the head are present - ENT Exam Additional comments: ET tube in place - Respiratory Exam Respiratory Exam: Decreased Breath Sounds. absent: Rales - Cardiovascular Exam Cardiovascular Exam: +S1, +S2 - GI/Abdominal Exam GI & Abdominal Exam: Soft. absent: Tenderness Assessment and Plan - Assessment and Plan (Free Text) Plan: Assessment systemic inflammatory response syndrome after cardiorespiratory arrest, now VDRF probably due to seizures, etiology not clear, with fever of unknown origin, unlikely HSV encephalitis given brain MRI 11/17/2017 with contrast did not show temporal lobe lesion or affectation (good sensitivity) and the patient was initially treated empirically for it with Acyclovir; R/O other forms of encephalitis such as autoimmune GERD cervical radiculopathy S/P surgery lumbar herniated disc depression Plan MRI brain with contrast is negative for brain lesions and did not suggest HSV encephalitis; RPR serology is negative will continue Vancomycin and Cefepime - repeat cultures have been negative - we have added Ampicillin because of his current acute status (although it is unlikely Listeria since the presentation is more acute in nature, but given that he is very ill currently, will empirically treat) and we have added Acyclovir again because of the severity of illness (although again it is unlikely as stated above) - we have been treating the patient empirically on antibiotics for meningitis making this unlikely bacterial meningitis (since he has worsened) - repeat blood and urine cx have been sent and will await results; will also get serum Crypt Ag (although fungal disease is less likely since fungal infections are generally very aggressive and as per Dr. Alhaji Clinton, the patient has been having symptoms for more than a month prior to admission) follow up further autoimmune work up discussed with Dr. Levy (Neurology) yesterday - EEG reviewed and it suggests seizures - we have been recommending LP during this admission for further testing - will need cell count, protein, VDRL, HSV PCR (although unlikely), CMV PCR, Enterovirus PCR, WNV IgM, anti-NMDA receptor antibodies - autoimmune disease is in the differential especially since he also has hyperthyroidism - I spoke with Dr. Alhaji Clinton (hospitalist) today who states that the patient, when he was lucid, AAOx3 was refusing lumbar puncture many times - LP was to be attempted this week but logistics apparently precluded the procedure (as per Dr. Clinton) - patient was scheduled for bone marrow biopsy this Tuesday Lyme is also unlikely given that he has no history of travel to wooded areas, was on Doxycycline at the start on this admission and his Lyme serology in the blood is not positive (only showed one band which means this is unlikely Lyme) overall prognosis is poor
[2017-12-03] MEDS: Vancomycin 1gm in NS 250ml 1 GM/250 ML BAG IVPB SCH ×2 (11:50→22:00)
[2017-12-03] MEDS: methIMAzole 5 MG TAB PO SCH (11:52)
--- NOTE | 2017-12-03 12:13 | PN ---
DATE: 12/03/2017 SUBJECTIVE: The patient is unresponsive on the ventilator requiring Levophed to support his blood pressure. The patient has had EEGs and it is shown that there is no brain activities or function. The patient has post code encephalopathy. He is ventilator dependent with FIO2 of 100% and O2 sat is stable. PHYSICAL EXAMINATION: VITAL SIGNS: Note that his temperature is 96.4, his pulse is 84, respirations are 18 and BP is 90/47. SKIN: Warm and dry. HEAD: Atraumatic, normocephalic. Eyes fixed and dilated. Ear, nose and throat seemed to be within normal limits. NECK: His neck is supple. No JVD. No thyroid enlargement or lymph nodes. HEART: Has regular rate and rhythm. Normal S1, S2. LUNGS: Reveal mild rhonchi bilaterally. ABDOMEN: Soft. Decreased bowel sounds. GENITALIA AND RECTAL: Deferred. MUSCULOSKELETAL: No joint deformities. EXTREMITIES: Reveal trace lower extremity edema. NEUROLOGIC: The patient is totally unresponsive on the ventilator. LABORATORY DATA: As far as his laboratories are concerned, his white count is 14.1, hemoglobin is 10.8, hematocrit 33.5 with platelets of 347,000. Arterial blood gas reveals a pH of 7.45, pCO2 of 35, pO2 of 92, that is on 100% FIO2. Sodium is 143, potassium 4, chloride 108, CO2 of 27 with a BUN of 16, creatinine of 0.5 and a glucose of 128. As far as chest x-ray, it is pending. IMPRESSION: The patient initially presented with altered mental status and has a history of cervical radiculopathy with herniated disc, cervical spondylosis with myelopathy and thoracic spondylosis. He also was noted to have depression. The patient was transferred to the Intensive Care Unit with hypotension and bradycardia noted last evening, had code blue called x2 with CPR and at that time was intubated and at present is on ventilator support with O2 saturation of 100%. The patient had possible seizures as well. He has at this point no brain activity and eyes are fixed and dilated with post code encephalopathy. The patient is on Levophed to support his blood pressure and ventilator support with FIO2 of 100%.. As far as our plan, we will continue with ventilator support and we will also continue with Levophed to support his blood pressure. He is getting Depakote as well as cefepime and Pepcid and IV fluids of normal saline. The patient is also getting Tamiflu as well as Unasyn and vancomycin. He is also getting acyclovir. We will continue to support his blood pressure. Note that at this time, the patient's family has refused central line placement and at present he continues to be a full code. We will continue to treat aggressively along with the other consultants and the primary care doctor. Michael Che MD
--- NOTE | 2017-12-03 12:32 | CP.PCM.PN ---
<Angel Mars - Last Filed: 12/03/17 19:12> Subjective - Date & Time of Evaluation Date of Evaluation: 12/03/17 Time of Evaluation: 12:20 - Subjective Subjective: Internal Medicine Progress Note (Hospitalist Service): Virginie PGY2 Patient seen and assessed at bedside in ICU. Patient was noted to have seizure like activity for which an [employer] was called. Patient was then transferred to the ICU for further monitoring. While in the ICU patient had two episodes of PEA for which two Code Blue's were called. Patient was resuscitated and intubated. He is now on the ventilator and unresponsive. Of note, he was also febrile overnight with a Tmax of 102. Further ROS information unobtainable at this time due to patients clinical condition. Objective - Vital Signs/Intake and Output Vital Signs (last 24 hours): Temp Pulse Resp BP Pulse Ox 96.4 F L 86 15 93/39 L 100 12/03/17 09:20 12/03/17 10:00 12/02/17 22:39 12/03/17 10:00 12/03/17 09:20 Intake and Output: 12/03/17 12/03/17 06:59 18:59 Intake Total 751 2043 Output Total 3000 Balance 751 -957 - Medications Medications: Current Medications Amlodipine Besylate (Norvasc) 10 mg PO DAILY [facility] Last Admin: 12/03/17 09:38 Dose: Not Given Docusate Sodium (Colace) 100 mg PO BID [facility] Last Admin: 12/03/17 09:37 Dose: Not Given Enoxaparin Sodium (Lovenox) 40 mg SC DAILY [facility]; Protocol Last Admin: 12/03/17 09:49 Dose: 40 mg Famotidine (Pepcid) 20 mg IVP DAILY [facility] Last Admin: 12/03/17 11:50 Dose: 20 mg Vancomycin HCl (Vancomycin 1gm) 1 gm in 250 mls @ 167 mls/hr IVPB Q12H [facility]; Protocol Last Admin: 12/03/17 11:50 Dose: 167 mls/hr Cefepime HCl (Maxipime 1gm) 1 gm in 100 mls @ 100 mls/hr IVPB Q12 [facility]; Protocol Last Admin: 12/03/17 09:37 Dose: Not Given Sodium Chloride (Sodium Chloride 0.9%) 1,000 mls @ 100 mls/hr IV .Q10H [facility] Last Admin: 12/02/17 22:00 Dose: 100 mls/hr NOREPINEPHRINE BIT/0.9 % NACL (Levophed 4 Mg/ 250 Ml Ns Premixed) 4 mg in 250 mls @ 112.5 mls/hr IV .Q2H14M PRN; Protocol PRN Reason: TITRATE PER MD ORDER Last Titration: 12/03/17 11:35 Dose: 15 mcg/min, 56.25 mls/hr Cefepime HCl (Maxipime 2gm) 2 gm in 100 mls @ 100 mls/hr IVPB Q8 [facility]; Protocol Stop: 12/08/17 07:46 Last Admin: 12/03/17 08:29 Dose: 100 mls/hr Ampicillin Sodium/Sulbactam (Sodium 3 gm/ Sodium Chloride) 100 mls @ 200 mls/hr IVPB Q6 [facility]; Protocol Last Admin: 12/03/17 08:28 Dose: 200 mls/hr Acyclovir 10 mg/ Sodium (Chloride) 100 mls @ 100 mls/hr IV Q8 [facility]; Protocol Last Admin: 12/03/17 08:28 Dose: 100 mls/hr Ibuprofen (Motrin Tab) 600 mg PO Q6H PRN PRN Reason: mild pain or fever >100.4 Last Admin: 12/01/17 05:49 Dose: 600 mg Lisinopril (Zestril) 20 mg PO BID [facility] Last Admin: 12/03/17 10:00 Dose: Not Given Methimazole (Tapazole) 10 mg PO DAILY [facility] Last Admin: 12/03/17 11:52 Dose: 10 mg Nystatin (Nystop Topical Powder) 0 gm TOP BID [facility] Last Admin: 12/03/17 10:06 Dose: 1 applic Oseltamivir Phosphate (Tamiflu Cap) 75 mg PO BID [facility]; Protocol Stop: 12/08/17 07:57 Last Admin: 12/03/17 11:51 Dose: 75 mg Risperidone (Risperdal Tab) 0.5 mg PO BID [facility]; Protocol Last Admin: 12/03/17 10:30 Dose: Not Given Risperidone (Risperdal Tab) 0.5 mg PO HS [facility]; Protocol Last Admin: 12/02/17 21:50 Dose: Not Given Valproate Sodium (Depakene Oral Soln) 600 mg PO TID [facility] Valproate Sodium (Depakene Oral Soln) 600 mg PO ONCE [facility] Last Admin: 12/03/17 10:35 Dose: 600 mg - Labs Labs: 12/03/17 05:00 12/03/17 05:00 - Head Exam Head Exam: ATRAUMATIC, NORMOCEPHALIC - Eye Exam Eye Exam: absent: EOMI, PERRL Pupil Exam: Fixed, Mydriatic. absent: NORMAL ACCOMODATION, PERRL - ENT Exam ENT Exam: Normal External Ear Exam Additional comments: ETT in place - Neck Exam Neck Exam: absent: Lymphadenopathy, Thyromegaly - Respiratory Exam Respiratory Exam: Rhonchi (Mild, diffuse and bilateral). absent: Rales, Wheezes, Stridor, NORMAL BREATHING PATTERN (Mechanical ventilation) - Cardiovascular Exam Cardiovascular Exam: Tachycardia, +S1, +S2 - GI/Abdominal Exam GI & Abdominal Exam: Soft, Hypoactive Bowel Sounds, Normal Bowel Sounds. absent: Distended, Tenderness - Neurological Exam Neurological Exam: absent: Alert, Awake, Oriented x3, Reflexes Normal Additional comments: Unresponsive to tactile, verbal and noxious stimuli Assessment and Plan - Assessment and Plan (Free Text) Assessment: 37 year old male with a past medical history significant for cervical radiculopathy with herniated disc, cervical spondylosis with myelopathy, thoracic spondylosis, and depression that presented with visual hallucinations for one month. Patient is currently intubated on mechanical ventilation after two episode of cardiopulmonary arrest and resuscitation. Plan: 1. Encephalopathy -Video EEG findings reviewed -Brain MRI with and without contrast (11/17) was unremarkable with no evidence of herpes encephalitis -Repeat Brain MRI with and without contrast pending -Echocardiogram showed an EF of 58%, no vegetations seen but limited study with poor visualization of valves -Heme/Oncology, Neurosurgery, Neurology and Psychiatry consulted, all recommendations appreciated 2. Systemic Inflammatory Response Syndrome -Intermittent fevers and tachycardia noted since admission with now new leukoc ytosis -Pancultures negative -Influenza, RPR, HIV, JACI, TB panel, CMV, Lyme serology, and Procalcitonin negative -Continue Acyclovir, Cefepime, Unasyn, Tamiflu, and Vancomycin -ID consulted, all recommendations appreciated 3. Hypotension -S/P two episodes of cardiopulmonary arrest and resuscitation -Continue Levophed -Continue NS at 100mls/hr -Holding all PO antihypertensives -Cardiology and EP consulted, all recommendations appreciated 4. VDRF -Continue mechanical ventilation as ordered -NPO Diet -ICU consulted, all recommendations appreciated 5. History of Seizures -Continue Depakote solution -Neurology consulted, all recommendations appreciated 6. Hyperthyroidism -Continue Tapazole -Endocrinology consulted, all recommendations appreciated 7. HTN -Holding all PO HTN medications at this time GI Prophylaxis: Pepcid DVT Prophylaxis: Lovenox Disposition: Patient is currently full code. Will continue ongoing discussions with patients family regarding patients prognosis and all options. Patient seen and case discussed with attending, Dr. Denia Clinton. <Denia Clinton R - Last Filed: 12/04/17 16:12> Objective - Vital Signs/Intake and Output Vital Signs (last 24 hours): Temp Pulse Resp BP Pulse Ox 96.6 F L 85 16 93/47 L 97 12/04/17 08:45 12/04/17 10:00 12/03/17 15:04 12/04/17 08:45 12/04/17 08:45 Intake and Output: 12/04/17 12/04/17 06:59 18:59 Intake Total 3447 500 Output Total 1500 Balance 1947 500 - Medications Medications: Current Medications Artificial Tears (Artificial Tears Opht Oint) 0 gm OU Q2 PRN PRN Reason: dry eyes Last Admin: 12/04/17 08:06 Dose: 1 applic Docusate Sodium (Colace) 100 mg PO BID [facility] Last Admin: 12/04/17 09:17 Dose: Not Given Enoxaparin Sodium (Lovenox) 40 mg SC DAILY [facility]; Protocol Last Admin: 12/04/17 09:38 Dose: 40 mg Famotidine (Pepcid) 20 mg IVP DAILY [facility] Last Admin: 12/04/17 09:37 Dose: 20 mg Vancomycin HCl (Vancomycin 1gm) 1 gm in 250 mls @ 167 mls/hr IVPB Q12H [facility]; Protocol Last Admin: 12/04/17 09:38 Dose: 167 mls/hr Sodium Chloride (Sodium Chloride 0.9%) 1,000 mls @ 100 mls/hr IV .Q10H [facility] Last Admin: 12/04/17 05:05 Dose: 100 mls/hr NOREPINEPHRINE BIT/0.9 % NACL (Levophed 4 Mg/ 250 Ml Ns Premixed) 4 mg in 250 mls @ 112.5 mls/hr IV .Q2H14M PRN; Protocol PRN Reason: TITRATE PER MD ORDER Last Admin: 12/04/17 14:45 Dose: 21 mcg/min, 78.75 mls/hr Cefepime HCl (Maxipime 2gm) 2 gm in 100 mls @ 100 mls/hr IVPB Q8 [facility]; Protocol Stop: 12/08/17 07:46 Last Admin: 12/04/17 13:20 Dose: 100 mls/hr Ampicillin Sodium/Sulbactam (Sodium 3 gm/ Sodium Chloride) 100 mls @ 200 mls/hr IVPB Q6 [facility]; Protocol Last Admin: 12/04/17 11:30 Dose: 200 mls/hr Acyclovir 1,000 mg/ Sodium (Chloride) 250 mls @ 167 mls/hr IV Q8 [facility]; Protocol Last Admin: 12/04/17 13:21 Dose: 167 mls/hr Vasopressin 20 units/ Sodium (Chloride) 101 mls @ 9.09 mls/hr IV .Q11H7M [facility]; Protocol Last Admin: 12/03/17 21:40 Dose: 0.03 u/min, 9.09 mls/hr Ibuprofen (Motrin Tab) 600 mg PO Q6H PRN PRN Reason: mild pain or fever >100.4 Last Admin: 12/01/17 05:49 Dose: 600 mg Methimazole (Tapazole) 10 mg PO DAILY [facility] Last Admin: 12/04/17 09:37 Dose: 10 mg Nystatin (Nystop Topical Powder) 0 gm TOP BID [facility] Last Admin: 12/04/17 09:40 Dose: 1 applic Oseltamivir Phosphate (Tamiflu Cap) 75 mg PO BID [facility]; Protocol Stop: 12/08/17 07:57 Last Admin: 12/04/17 09:37 Dose: 75 mg Risperidone (Risperdal Tab) 0.5 mg PO BID [facility]; Protocol Last Admin: 12/04/17 09:39 Dose: Not Given Risperidone (Risperdal Tab) 0.5 mg PO HS [facility]; Protocol Last Admin: 12/03/17 21:14 Dose: Not Given Valproate Sodium (Depakene Oral Soln) 600 mg PO TID [facility] Last Admin: 12/04/17 13:22 Dose: 600 mg - Labs Labs: 12/04/17 05:00 12/04/17 05:00 Attending/Attestation - Attestation I have personally seen and examined this patient.: Yes I have fully participated in the care of the patient.: Yes I have reviewed all pertinent clinical information, including history, physical exam and plan: Yes Notes (Text): Patient seen and examined by me at 7:50AM with resident 12/03/17. Case including HPI, physical exam, and assessment and plan discussed with resident. Agree with above with following additions/corrections. Patient is a 37 year old male with past medical history that is significant for cervical radiculopathy with herniated disc, cervical spondylosis with myelopathy, thoracic spondylosis, and depression that presented to the emergency room with visual hallucinations. Overnight events noted. Patient is intubated and unresponsive. No family at bedside. Patient is on pressors. Physical exam: General: Intubated and unresponsive. HEENT: Pupils fixed and dilated. Video EEG in place. Cardiovascular: Normal S1 and S2. No murmurs, rubs, or gallops appreciated Pulmonary: Positive vent sounds throughout Gastrointestinal: Soft, nondistended. Positive bowel sounds all 4 quadrants. Musculoskeletal: No edema appreciated Central Nervous System: Intubated and unresponsive. Dermatologic: Skin warm and dry. Positive well healed scar on back. Assessment and plan: Patient is a 37 year old male with past medical history that is significant for cervical radiculopathy with herniated disc, cervical spondylosis with myelopathy, thoracic spondylosis, and depression that presented to the emergency room with visual hallucinations. 1. Anoxic encephalopathy. S/P code blue x 2. Patient intubated. Patient with no activity on video EEG. Discussed at length with Neuro team and ID team. MRI brain to be done. Continue with pressors. 2. Fever of unknown origin. Febrile yesterday. Now afebrile. ID following, recommendations appreciated. All cultures negative. No signs of infection or cancer on any imaging. Patient has been on antibiotics. Continue with Ampicillin, Acyclovir, Cefepime, and Vancomycin. 3. Tachycardia. Now resolved and patient on pressors. CTA chest per radiologist shows technically limited examination, cannot rule out segmental/subsegmental pulmonary artery embolism, no large central pulmonary embolism, incidentally noted bilateral gynecomastia. Troponins is within normal limits. Cardiology consulted, recommendations appreciated. V/Q low probablity for PE. 5. Possible seizure activity. Video EEG per neurologist showed possible subclinical seizures on 12/02/17. Continue with Depakote. 6. Leukocytosis. Likely reactive. Continue to monitor. 7. Hyperthyroidism. Endocrinology following, recommendations appreciated. Continue propranolol and methimazole. 8. Essential hypertension. Now on pressor. Case discussed in detail with the neurologist, ID, and patient's nurse regarding current diagnosis and treatment plan. Yesterday 12/02/17 after rapid response, case was discussed in detail for approximately 40 minutes with patient's mother, father, and sister. All questions were answered. Case was again discussed with patient's mother, father, and sister this afternoon. All questions were answered. They understand patient's condition is grave.
--- NOTE | 2017-12-03 13:06 | CT ---
Date of service: 12/02/2017 PROCEDURE: CT HEAD WITHOUT CONTRAST. HISTORY: AMS COMPARISON: 11/06/2017. CT head. 11/17/2017 MRI brain TECHNIQUE: Axial computed tomography images were obtained through the head/brain without intravenous contrast. Supplemental Coronal and Sagittal projectections created and reviewed. Radiation dose: Total exam DLP = 1162.45 mGy-cm. This CT exam was performed using one or more of the following dose reduction techniques: Automated exposure control, adjustment of the mA and/or kV according to patient size, and/or use of iterative reconstruction technique. FINDINGS: HEMORRHAGE: No intracranial hemorrhage. BRAIN: No mass effect or edema. No atrophy or chronic microvascular ischemic changes. VENTRICLES: Unremarkable. No hydrocephalus. CALVARIUM: Unremarkable. PARANASAL SINUSES: Unremarkable as visualized. No significant inflammatory changes. MASTOID AIR CELLS: Unremarkable as visualized. No inflammatory changes. OTHER FINDINGS: None. IMPRESSION: No acute intracranial abnormalities. No significant findings to account for the clinical presentation. No significant interval change compared to the prior examination(s). Concordant results (preliminary interpretation) provided by [facility]. Procedure Completed: 18:58 Preliminary Report: Dictated and Authenticated: 19:38. Final Interpretation: 13:04. December 03, 2017.
--- NOTE | 2017-12-03 13:45 | PN ---
DATE: 12/03/2017 FOLLOWUP SUBJECTIVE: The patient is unresponsive. He requiring Levophed infusion at 5 mcg/minute. No reported arrhythmia. PHYSICAL EXAMINATION: VITAL SIGNS: Blood pressure 93/39, heart rate 86, temperature 96.4. The patient is currently in warming blanket. HEENT: No icterus. NECK: No JVD. CHEST: Bilateral rhonchi. HEART: S1 and S2 regular. EXTREMITIES: No edema. LABORATORY DATA: Hemoglobin and hematocrit 10.8 and 33.5, white count 14.1, platelet count 347,000. SMA-7: Sodium 143, potassium 4, chloride 108, CO2 of 27, glucose 128, BUN 16, creatinine 0.5. Total of four troponins were 0.01, 0.01, 0.04 and 0.05. Today's EKG reveals sinus rhythm at rate of 83 with prolonged QT interval. Magnesium level today is 2.3. Yesterday's head CT scan revealed no acute intracranial findings. Today's chest x-ray revealed mild cardiomegaly. ASSESSMENT: 1. Status post . 2. Anoxic encephalopathy. 3. Seizure activity. 4. Hyperthyroidism. 5. Hypotension. RECOMMENDATIONS: Continue current IV acyclovir and IV ampicillin. Continue Depakote at 600 mg t.i.d. via nasogastric tube. Continue Levophed infusion. Continue IV cefepime at 2 g every 8 hours. Discontinue Norvasc. Continue Tapazole at 10 mg once a day, IV vancomycin 1 g intravenously every 12 hours and discontinue Zestril. Overall prognosis is grave. Stiven Sierra MD
[2017-12-03] MEDS: Valproic Acid 250 mg/5 ml UD Cup PO SCH ×2 (13:57→17:42)
--- NOTE | 2017-12-03 14:00 | RAD ---
Date of service: 12/02/2017 HISTORY: intubation, og tube placement COMPARISON: 11/25/2017 FINDINGS: LUNGS: No active pulmonary disease. PLEURA: No significant pleural effusion identified, no pneumothorax apparent. CARDIOVASCULAR: No radiographic findings to suggest acute or significant cardiovascular disease. OSSEOUS STRUCTURES: No significant abnormalities. VISUALIZED UPPER ABDOMEN: Recently placed nasogastric tube identified in satisfactory position in a decompressed stomach. OTHER FINDINGS: None. IMPRESSION: Satisfactory position of nasogastric tube. No active pulmonary disease or significant intrathoracic abnormalities.
--- NOTE | 2017-12-03 14:04 | RAD ---
Date of service: 12/03/2017 HISTORY: Intubated. COMPARISON: December 02, 2017. Study performed 23:44. FINDINGS: LUNGS: No active pulmonary disease. Low lung volumes accentuate pulmonary markings. No discrete infiltrates identified. PLEURA: No significant pleural effusion identified, no pneumothorax apparent. CARDIOVASCULAR: Normal. OSSEOUS STRUCTURES: No significant abnormalities. VISUALIZED UPPER ABDOMEN: Normal. OTHER FINDINGS: Satisfactory position support apparatus including endotracheal tube and recently placed nasogastric tube. IMPRESSION: No active disease. No significant interval change compared to the prior examination(s). Stable position of support apparatus.
[2017-12-03] MEDS ORDERED: Gadodiamide 287 MG/ML VIAL (15ML) IV ONE (15:53)
[2017-12-03] MEDS: Sodium Chloride 0.9% 1,000 ML IV SCH (17:40)
--- NOTE | 2017-12-03 18:27 | MRI ---
Date of service: 12/03/2017 PROCEDURE: MRI BRAIN WITH AND WITHOUT CONTRAST HISTORY: Abnormal video EEG; encephalopathic COMPARISON: Comparison made with prior CT scan brain dated 12/02/2017. TECHNIQUE: Multiplanar, multisequence MR images of the brain were obtained with and without intravenous contrast enhancement. 15 cc Omniscan contrast material injected for this exam FINDINGS: HEMORRHAGE: No acute parenchymal, subarachnoid or extra-axial hemorrhage. DWI: No evidence of an acute or early subacute infarction seen on diffusion imaging. BRAIN PARENCHYMA: Re demonstrated is a curvilinear focus of dark T1 signal in the right frontal lobe that extends from the cortical to near the ventricular surface of the right frontal horn. This lesion exhibits some hemosiderin blooming on gradient echo weighted sequence though no enhancement at this time. This lesion faintly enhanced on the prior exam there does not exhibit contrast enhancement at this time. 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 Note that the possibility thrombosis of venous anomaly not excluded. No additional focal areas of abnormal signal seen throughout the remaining substance of the brain. No evidence to suggest herpes encephalitis. The ventricular and sulcal size are within range of normal for this patient's stated age No enhancing parenchymal nor extra-axial masses or collections. No evidence of unusual meningeal enhancement. No evidence to suggest herpes encephalitis. VENTRICLES: The ventricles appear less dilated compared with prior CT scan and prior MRI. CRANIUM: Unremarkable. ORBITS: Orbits and contents unremarkable. PARANASAL SINUSES/MASTOIDS: Small focal area from polypoid like mucosal thickening within the posterior aspect of the right maxillary antrum felt to be present.. There is of opacification of several left sided mastoid air cells.. VASCULAR SYSTEM: Visualized major vascular flow voids at skull base patent. OTHER FINDINGS: None . IMPRESSION: No enhancing parenchymal nor extra-axial masses or collections seen at this time. There is a curvilinear focus of dark T1 and of very dark T2 seen on gradient echo weighted sequence which is felt to represent a developmental venous anomaly such as a venous angioma however the focus exhibits hemosiderin blooming suggestive of some underlying venous thrombosis. This focus does exhibit mild contrast enhancement on prior study though does not enhance at the present time. There is no evidence of ventricular dilatation when compared to prior CT scan and prior MRI as above. Clinical correlation recommended. No enhancing lesions seen at this time. No evidence to suggest herpes encephalitis. Opacification several left-sided mastoid air cells
[2017-12-04] MEDS ORDERED: Mineral Oil/Petrolatum Opht Oint(3.5 gm) OU PRN (02:59)
--- NOTE | 2017-12-04 03:17 | CP.PCM.PN ---
Subjective - Date & Time of Evaluation Date of Evaluation: 12/03/17 Time of Evaluation: 13:30 - Subjective Subjective: Events overnight noted and patient examined as well VEEG and REEG reviewed and MRI Brain. Patient is off sedation with no brainstem reflexes noted. no dolls eyes, no corneals, no gag. no spontaneous movement no localizing to sternal rub VEEG; shows no normal rhythms. Severely attenuated. Objective - Vital Signs/Intake and Output Vital Signs (last 24 hours): Temp Pulse Resp BP Pulse Ox 96.4 F L 86 15 93/39 L 100 12/03/17 09:20 12/03/17 10:00 12/02/17 22:39 12/03/17 10:00 12/03/17 09:20 Intake and Output: 12/03/17 12/03/17 06:59 18:59 Intake Total 751 2043 Output Total 3000 Balance 751 -437 - Medications Medications: Current Medications Amlodipine Besylate (Norvasc) 10 mg PO DAILY [facility] Last Admin: 12/03/17 09:38 Dose: Not Given Docusate Sodium (Colace) 100 mg PO BID [facility] Last Admin: 12/03/17 09:37 Dose: Not Given Enoxaparin Sodium (Lovenox) 40 mg SC DAILY [facility]; Protocol Last Admin: 12/03/17 09:49 Dose: 40 mg Famotidine (Pepcid) 20 mg IVP DAILY [facility] Last Admin: 12/03/17 11:50 Dose: 20 mg Vancomycin HCl (Vancomycin 1gm) 1 gm in 250 mls @ 167 mls/hr IVPB Q12H [facility]; Protocol Last Admin: 12/03/17 11:50 Dose: 167 mls/hr Cefepime HCl (Maxipime 1gm) 1 gm in 100 mls @ 100 mls/hr IVPB Q12 [facility]; Protocol Last Admin: 12/03/17 09:37 Dose: Not Given Sodium Chloride (Sodium Chloride 0.9%) 1,000 mls @ 100 mls/hr IV .Q10H [facility] Last Admin: 12/02/17 22:00 Dose: 100 mls/hr NOREPINEPHRINE BIT/0.9 % NACL (Levophed 4 Mg/ 250 Ml Ns Premixed) 4 mg in 250 mls @ 112.5 mls/hr IV .Q2H14M PRN; Protocol PRN Reason: TITRATE PER MD ORDER Last Titration: 12/03/17 11:35 Dose: 15 mcg/min, 56.25 mls/hr Cefepime HCl (Maxipime 2gm) 2 gm in 100 mls @ 100 mls/hr IVPB Q8 [facility]; Protocol Stop: 12/08/17 07:46 Last Admin: 12/03/17 08:29 Dose: 100 mls/hr Ampicillin Sodium/Sulbactam (Sodium 3 gm/ Sodium Chloride) 100 mls @ 200 mls/hr IVPB Q6 [facility]; Protocol Last Admin: 12/03/17 08:28 Dose: 200 mls/hr Acyclovir 10 mg/ Sodium (Chloride) 100 mls @ 100 mls/hr IV Q8 [facility]; Protocol Last Admin: 12/03/17 08:28 Dose: 100 mls/hr Ibuprofen (Motrin Tab) 600 mg PO Q6H PRN PRN Reason: mild pain or fever >100.4 Last Admin: 12/01/17 05:49 Dose: 600 mg Lisinopril (Zestril) 20 mg PO BID [facility] Last Admin: 12/03/17 10:00 Dose: Not Given Methimazole (Tapazole) 10 mg PO DAILY [facility] Last Admin: 12/03/17 11:52 Dose: 10 mg Nystatin (Nystop Topical Powder) 0 gm TOP BID [facility] Last Admin: 12/03/17 10:06 Dose: 1 applic Oseltamivir Phosphate (Tamiflu Cap) 75 mg PO BID [facility]; Protocol Stop: 12/08/17 07:57 Last Admin: 12/03/17 11:51 Dose: 75 mg Risperidone (Risperdal Tab) 0.5 mg PO BID [facility]; Protocol Last Admin: 12/03/17 10:30 Dose: Not Given Risperidone (Risperdal Tab) 0.5 mg PO HS [facility]; Protocol Last Admin: 12/02/17 21:50 Dose: Not Given Valproate Sodium (Depakene Oral Soln) 600 mg PO TID [facility] Valproate Sodium (Depakene Oral Soln) 600 mg PO ONCE [facility] Last Admin: 12/03/17 10:35 Dose: 600 mg - Labs Labs: 12/03/17 05:00 12/03/17 05:00 Assessment and Plan - Assessment and Plan (Free Text) Assessment: 37 yr old male now with severe anoxic encephalopathy, poor prognosis. There are no normal rhythms on EEG in last 24 hours, after 2 codes, that most likely resulted in anoxic encephalopathy. Patient was treated for seizures on Tuesday afternoon, and LP was attempted but family requested us to delay procedure as they requested to be bedside. The prior day, on , nov, LP was recommended and advised to patient and family and they were not agreeable at that time. mr. Haro was treated for several weeks with broad spectrum antibiotics for bacterial and viral meningitis, as well as having multiple neuroimaging studies. EEG and MRI did not corroborate findings of bacterial meningiits or herpes encephalitis. Ct abdomen and pelvis has not shown primary carcinoma, or other infectious process. For these reasons, and the cryptogenic nature of his bradycardic episode, bone marrow biopsy as per Dr. Ramos would be advisable. IN addition, we have offered LP to obtains CSF for analysis for possible occult process. At this time, his brain function is minimal. All findings, hospital course and prognosis was discussed with mother Sophie Haro. Thank you Dr. calderon Neurology
[2017-12-04] MEDS: Mineral Oil/Petrolatum Opht Oint(3.5 gm) OU PRN ×3 (03:24→17:27)
[2017-12-04] MEDS: Cefepime IV 2 gm in NS 2 GM/100 ML BAG IVPB SCH ×3 (05:04→21:13)
[2017-12-04] MEDS: Sodium Chloride 0.9% 1,000 ML IV SCH ×2 (05:05→15:35)
[2017-12-04] MEDS: NOREPINEPHRINE BIT/0.9 % NACL 4 MG/250 ML BAG IV PRN ×4 (05:07→18:10)
[2017-12-04 06:18] LABS: BASO # 0.01 K/mm3 (0.0-2.0); BASO % 0.1 % (0.0-3.0); EOS # 0.1 (0.0-0.7); GRAN # 7.19 (1.4-6.5); GRAN % 73.1 % (50.0-68.0); HEMOGLOBIN 9.1 g/dL (14.0-18.0); LYMPH % 20.4 % (22.0-35.0); MEAN CELL VOLUME 90.9 fl (80.0-105.0); MEAN CORPUSCULAR HEMOGLOBIN 28.6 pg (25.0-35.0); MEAN CORPUSCULAR HGB CONC 31.5 g/dl (31.0-37.0); MEAN PLATELET VOLUME 8.6 fl (7.0-11.0); MONO # 0.5 (0.1-0.6); MONO % 5.4 % (1.0-6.0); RBC 3.18 10^6/uL (3.5-6.1); RED CELL DISTRIBUTION WIDTH 16.6 % (11.5-14.5); WHITE BLOOD COUNT 9.8 10^3/ul (4.5-11.0)
[2017-12-04 06:58] LABS: ARTERIAL BLOOD GAS HCO3 22.1 mmol/L (21-28); ARTERIAL BLOOD GAS HEMOGLOBIN 9.7 g/dL (11.7-17.4); ARTERIAL BLOOD GAS O2 CAPACITY 13.5 mL/dl (16-24); ARTERIAL BLOOD GAS O2 CONTENT 13.4 ML/dl (15-23); ARTERIAL BLOOD GAS O2 SAT 99.2 % (95-98); ARTERIAL BLOOD GAS PCO2 34 mm/Hg (35-45); ARTERIAL BLOOD GAS PH 7.42 (7.35-7.45); ARTERIAL BLOOD GAS TCO2 23.1 mmol.L (22-28)
[2017-12-04 07:15] LABS: ALB/GLOB RATIO 0.8 (1.1-1.8); ALBUMIN 2.5 g/dL (3.0-4.8); ALT/SGPT 49 U/L (7-56); AST/SGOT 23 U/L (17-59); BLOOD UREA NITROGEN 18 mg/dL (7-21); CALCIUM 9.1 mg/dL (8.4-10.5); GFR NON-AFRICAN AMERICAN > 60
[2017-12-04] MEDS ORDERED: Potassium Chloride 40 mEq/30 ml LIQ UD NG ONE (07:28)
--- NOTE | 2017-12-04 08:41 | PN ---
DATE: 12/04/2017 PREVENTATIVE MAINTENANCE TECHNICIAN NOTE SUBJECTIVE: The patient is ventilator dependent with FiO2 of 70% and good O2 saturations. We will decrease the FiO2 to 50%. The patient continues to require vasopressin and Levophed to support his blood pressure. MRI was done and Neuro will evaluate the results and explain the results to the family. The patient continues to have no response and eyes continued to be fixed and dilated. PHYSICAL EXAMINATION: VITAL SIGNS: Note that his temperature is 96.4, his pulse is 80, respirations are 18 and BP is 85/39, O2 saturation is 99%. HEENT: Head is atraumatic, normocephalic. Eyes fixed and dilated. NECK: Supple. No JVD. No thyroid enlargement or lymph nodes. HEART: Has regular rate and rhythm. Normal S1, S2. LUNGS: Reveal fairly good breath sounds bilaterally. ABDOMEN: Soft. Decreased bowel sounds. GENITALIA AND RECTAL: Deferred. MUSCULOSKELETAL: No joint deformities. EXTREMITIES: Reveal trace edema. NEUROLOGICALLY: He is totally unresponsive. LABORATORY DATA: As far as his laboratories are concerned, his white count is 9.8, hemoglobin is 9.1, hematocrit 28.9 with platelets of 190,000. Arterial blood gas reveals pH of 7.42, pCO2 of 34, pO2 of 111. The patient's sodium is 150, potassium 2.9, chloride 120 with CO2 of 25, BUN of 18, creatinine of 0.6 and a glucose of 122. The patient's chest x-ray, no significant change and MRI reading will be evaluated by Neuro. IMPRESSION: As far as my impression, patient initially presented with altered mental status and has a history of cervical radiculopathy with herniated discs, cervical spondylosis with myelopathy and thoracic spondylitis. The patient is also known to have history of depression. The patient continues to have hypotension and did have episodes of bradycardia that led to code blue x2 and CPR. At present, the patient is intubated, requiring ventilator support with FiO2 of 70%. The patient had post code encephalopathy and eyes were fixed and dilated. PLAN: We will continue with Levophed and vasopressin to support the blood pressure. MRI will be evaluated by Neuro and explained to patient's family. The patient continues to get Depakote and cefepime as well as Pepcid and IV fluid. He is getting Tamiflu as well as Unasyn and vancomycin along with acyclovir. The patient will get potassium replacement and laboratories will be followed up. We will continue to follow the chest x-ray and an arterial blood gas and continue to decrease the FiO2 as tolerated. Michael Che MD
--- NOTE | 2017-12-04 08:55 | CARD ---
APPROVED REPORT Date of service: 12/03/2017 EKG Measurement Heart [id number] <Conclusion> Normal sinus rhythm RVCD Prolonged QTc
[2017-12-04] MEDS: Valproic Acid 250 mg/5 ml UD Cup PO SCH ×3 (09:37→17:26)
[2017-12-04] MEDS: methIMAzole 5 MG TAB PO SCH (09:37)
[2017-12-04] MEDS: Enoxaparin 40 mg Syringe SC SCH (09:38)
[2017-12-04] MEDS: Vancomycin 1gm in NS 250ml 1 GM/250 ML BAG IVPB SCH ×2 (09:38→21:14)
[2017-12-04] MEDS: Nystatin 100,000 Units/gm Topical Pow(15 gm) TOP SCH ×2 (09:40→17:27)
--- NOTE | 2017-12-04 10:31 | CP.PCM.PN ---
Subjective - Date & Time of Evaluation Date of Evaluation: 12/04/17 Time of Evaluation: 08:45 - Subjective Subjective: Continues to be on the ventilator, now on 2 pressors, no response to stimuli. Currently no fevers. Objective - Vital Signs/Intake and Output Vital Signs (last 24 hours): Temp Pulse Resp BP Pulse Ox 96.4 F L 80 16 85/39 L 99 12/04/17 05:45 12/04/17 05:55 12/03/17 15:04 12/04/17 05:45 12/04/17 05:45 Intake and Output: 12/03/17 12/04/17 18:59 06:59 Intake Total 4092 3447 Output Total 4800 1500 Balance -708 3317 - Medications Medications: Current Medications Amlodipine Besylate (Norvasc) 10 mg PO DAILY [facility] Last Admin: 12/03/17 09:38 Dose: Not Given Artificial Tears (Artificial Tears Opht Oint) 0 gm OU Q2 PRN PRN Reason: dry eyes Last Admin: 12/04/17 03:24 Dose: 1 applic Docusate Sodium (Colace) 100 mg PO BID [facility] Last Admin: 12/03/17 17:07 Dose: Not Given Enoxaparin Sodium (Lovenox) 40 mg SC DAILY [facility]; Protocol Last Admin: 12/03/17 09:49 Dose: 40 mg Famotidine (Pepcid) 20 mg IVP DAILY [facility] Last Admin: 12/03/17 11:50 Dose: 20 mg Vancomycin HCl (Vancomycin 1gm) 1 gm in 250 mls @ 167 mls/hr IVPB Q12H [facility]; Protocol Last Admin: 12/03/17 22:00 Dose: 167 mls/hr Sodium Chloride (Sodium Chloride 0.9%) 1,000 mls @ 100 mls/hr IV .Q10H [facility] Last Admin: 12/04/17 05:05 Dose: 100 mls/hr NOREPINEPHRINE BIT/0.9 % NACL (Levophed 4 Mg/ 250 Ml Ns Premixed) 4 mg in 250 mls @ 112.5 mls/hr IV .Q2H14M PRN; Protocol PRN Reason: TITRATE PER MD ORDER Last Admin: 12/04/17 05:07 Dose: 15 mcg/min, 56.25 mls/hr Cefepime HCl (Maxipime 2gm) 2 gm in 100 mls @ 100 mls/hr IVPB Q8 [facility]; Protocol Stop: 12/08/17 07:46 Last Admin: 12/04/17 05:04 Dose: 100 mls/hr Ampicillin Sodium/Sulbactam (Sodium 3 gm/ Sodium Chloride) 100 mls @ 200 mls/hr IVPB Q6 [facility]; Protocol Last Admin: 12/04/17 05:03 Dose: 200 mls/hr Acyclovir 1,000 mg/ Sodium (Chloride) 250 mls @ 167 mls/hr IV Q8 [facility]; Protocol Last Admin: 12/04/17 05:04 Dose: 167 mls/hr Vasopressin 20 units/ Sodium (Chloride) 101 mls @ 9.09 mls/hr IV .Q11H7M [facility]; Protocol Last Admin: 12/03/17 21:40 Dose: 0.03 u/min, 9.09 mls/hr Ibuprofen (Motrin Tab) 600 mg PO Q6H PRN PRN Reason: mild pain or fever >100.4 Last Admin: 12/01/17 05:49 Dose: 600 mg Lisinopril (Zestril) 20 mg PO BID [facility] Last Admin: 12/03/17 17:44 Dose: Not Given Methimazole (Tapazole) 10 mg PO DAILY [facility] Last Admin: 12/03/17 11:52 Dose: 10 mg Nystatin (Nystop Topical Powder) 0 gm TOP BID [facility] Last Admin: 12/03/17 17:54 Dose: 1 applic Oseltamivir Phosphate (Tamiflu Cap) 75 mg PO BID [facility]; Protocol Stop: 12/08/17 07:57 Last Admin: 12/03/17 17:41 Dose: 75 mg Risperidone (Risperdal Tab) 0.5 mg PO BID [facility]; Protocol Last Admin: 12/03/17 18:22 Dose: Not Given Risperidone (Risperdal Tab) 0.5 mg PO HS [facility]; Protocol Last Admin: 12/03/17 21:14 Dose: Not Given Valproate Sodium (Depakene Oral Soln) 600 mg PO TID [facility] Last Admin: 12/03/17 17:42 Dose: 600 mg - Labs Labs: 12/04/17 05:00 12/03/17 05:00 - Constitutional Appears: Other (intubated, not responsive to stimuli) - ENT Exam Additional comments: ET tube in place - Respiratory Exam Respiratory Exam: Decreased Breath Sounds - Cardiovascular Exam Cardiovascular Exam: +S1, +S2 - GI/Abdominal Exam GI & Abdominal Exam: Soft. absent: Tenderness Assessment and Plan - Assessment and Plan (Free Text) Plan: Assessment systemic inflammatory response syndrome after cardiorespiratory arrest, now VDRF R/O due to seizures, etiology not clear, with fever of unknown origin, unlikely HSV encephalitis given brain MRI 11/17/2017 and 12/03/2017 with contrast that did not show temporal lobe lesion or affectation (good sensitivity, therefore no suggestion of herpes encephalitis) and the patient was initially treated empirically for it with Acyclovir; R/O other forms of encephalitis such as autoimmune GERD cervical radiculopathy S/P surgery lumbar herniated disc depression Plan MRI brain with contrast is negative for brain lesions and did not suggest HSV encephalitis (2 times as outlined above); RPR serology is negative will continue Vancomycin and Cefepime - repeat cultures have been negative - we have added Ampicillin because of his current acute status (although it is unlikely Listeria since the presentation is more acute in nature, but given that he is very ill currently, will empirically treat) and we have added Acyclovir a gain yesterday because of the severity of illness (although again it is unlikely as stated above) - we have been treating the patient empirically on antibiotics for meningitis making this unlikely bacterial meningitis (since he has worsened) - repeat blood and urine cx have been sent and will await results (blood cx negative x 1 day); follow up serum Crypt Ag (although fungal disease is less likely since fungal infections are generally very aggressive and as per Dr. Alhaji Clinton, the patient has been having symptoms for more than a month prior to admission) follow up further autoimmune work up discussed with Dr. Levy (Neurology) yesterday - EEG reviewed and it suggests seizures nut not very specific - we have been recommending LP during this admission for further testing - will need cell count, protein, VDRL, HSV PCR (although unlikely), CMV PCR, Enterovirus PCR, WNV IgM, anti-NMDA receptor a ntibodies - autoimmune disease is in the differential especially since he also has hyperthyroidism - I spoke with Dr. Alhaji Clinton (hospitalist) today who states that the patient, when he was lucid, AAOx3 was refusing lumbar puncture many times - LP was to be attempted this week but consent was not obtained per Dr. Levy - patient was scheduled for bone marrow biopsy tomorrow to look for other etiologies of fever Lyme is also unlikely given that he has no history of travel to wooded areas, was on Doxycycline at the start on this admission and his Lyme serology in the blood is not positive (only showed one band which means this is unlikely Lyme) overall prognosis is grave - I have discussed this with the father and mother of the patient - they do understand that the prognosis is grave and we have treated for possible infection but no proof of infection - also explained that there are many other viruses that may cause encephalitis which have no specific antiviral medicine or cure for them, also many other causes of encephalopathy and encephalitis such as autoimmune diseases
--- NOTE | 2017-12-04 10:36 | RAD ---
Date of service: 12/04/2017 HISTORY: Intubated. COMPARISON: Multiple serial examinations preceding the most recent study: December 03, 2017. FINDINGS: LUNGS: Evolving retrocardiac left lower lobe infiltrate. PLEURA: Left pleural effusion inseparable from left lower lobe infiltrate. CARDIOVASCULAR: No radiographic findings to suggest acute or significant cardiovascular disease. OSSEOUS STRUCTURES: No significant abnormalities. VISUALIZED UPPER ABDOMEN: Normal. OTHER FINDINGS: Stable, satisfactory position ventilatory and nasogastric apparatus. IMPRESSION: Evolving left lower lobe infiltrate/left pleural effusion. Stable position of support apparatus.
[2017-12-04 13:17] LABS: BARBITURATES, UR NEGATIVE (NEGATIVE); BENZODIAZEPINES, UR NEGATIVE (NEGATIVE); OPIATES, UR NEGATIVE (NEGATIVE); PHENCYCLIDINE, UR NEGATIVE (NEGATIVE)
--- NOTE | 2017-12-04 16:24 | CP.PCM.PN ---
<Angel Mars - Last Filed: 12/04/17 16:20> Subjective - Date & Time of Evaluation Date of Evaluation: 12/04/17 Time of Evaluation: 16:20 - Subjective Subjective: Internal Medicine Progress Note (Hospitalist Service): Virginie PGY2 Patient seen and assessed at bedside in ICU. No overnight events noted by nursing staff. Further ROS information unobtainable at this time due to patients clinical condition. Objective - Vital Signs/Intake and Output Vital Signs (last 24 hours): Temp Pulse Resp BP Pulse Ox 96.6 F L 85 16 93/47 L 97 12/04/17 08:45 12/04/17 10:00 12/03/17 15:04 12/04/17 08:45 12/04/17 08:45 Intake and Output: 12/04/17 12/04/17 06:59 18:59 Intake Total 3447 500 Output Total 1500 Balance 1947 500 - Medications Medications: Current Medications Artificial Tears (Artificial Tears Opht Oint) 0 gm OU Q2 PRN PRN Reason: dry eyes Last Admin: 12/04/17 08:06 Dose: 1 applic Docusate Sodium (Colace) 100 mg PO BID [facility] Last Admin: 12/04/17 09:17 Dose: Not Given Enoxaparin Sodium (Lovenox) 40 mg SC DAILY [facility]; Protocol Last Admin: 12/04/17 09:38 Dose: 40 mg Famotidine (Pepcid) 20 mg IVP DAILY [facility] Last Admin: 12/04/17 09:37 Dose: 20 mg Vancomycin HCl (Vancomycin 1gm) 1 gm in 250 mls @ 167 mls/hr IVPB Q12H [facility]; Protocol Last Admin: 12/04/17 09:38 Dose: 167 mls/hr Sodium Chloride (Sodium Chloride 0.9%) 1,000 mls @ 100 mls/hr IV .Q10H [facility] Last Admin: 12/04/17 05:05 Dose: 100 mls/hr NOREPINEPHRINE BIT/0.9 % NACL (Levophed 4 Mg/ 250 Ml Ns Premixed) 4 mg in 250 mls @ 112.5 mls/hr IV .Q2H14M PRN; Protocol PRN Reason: TITRATE PER MD ORDER Last Admin: 12/04/17 14:45 Dose: 21 mcg/min, 78.75 mls/hr Cefepime HCl (Maxipime 2gm) 2 gm in 100 mls @ 100 mls/hr IVPB Q8 [facility]; Protocol Stop: 12/08/17 07:46 Last Admin: 12/04/17 13:20 Dose: 100 mls/hr Ampicillin Sodium/Sulbactam (Sodium 3 gm/ Sodium Chloride) 100 mls @ 200 mls/hr IVPB Q6 [facility]; Protocol Last Admin: 12/04/17 11:30 Dose: 200 mls/hr Acyclovir 1,000 mg/ Sodium (Chloride) 250 mls @ 167 mls/hr IV Q8 [facility]; Protocol Last Admin: 12/04/17 13:21 Dose: 167 mls/hr Vasopressin 20 units/ Sodium (Chloride) 101 mls @ 9.09 mls/hr IV .Q11H7M [facility]; Protocol Last Admin: 12/03/17 21:40 Dose: 0.03 u/min, 9.09 mls/hr Ibuprofen (Motrin Tab) 600 mg PO Q6H PRN PRN Reason: mild pain or fever >100.4 Last Admin: 12/01/17 05:49 Dose: 600 mg Methimazole (Tapazole) 10 mg PO DAILY [facility] Last Admin: 12/04/17 09:37 Dose: 10 mg Nystatin (Nystop Topical Powder) 0 gm TOP BID [facility] Last Admin: 12/04/17 09:40 Dose: 1 applic Oseltamivir Phosphate (Tamiflu Cap) 75 mg PO BID [facility]; Protocol Stop: 12/08/17 07:57 Last Admin: 12/04/17 09:37 Dose: 75 mg Risperidone (Risperdal Tab) 0.5 mg PO BID [facility]; Protocol Last Admin: 12/04/17 09:39 Dose: Not Given Risperidone (Risperdal Tab) 0.5 mg PO HS [facility]; Protocol Last Admin: 12/03/17 21:14 Dose: Not Given Valproate Sodium (Depakene Oral Soln) 600 mg PO TID [facility] Last Admin: 12/04/17 13:22 Dose: 600 mg - Labs Labs: 12/04/17 05:00 12/04/17 05:00 - Constitutional Appears: Other (Unresponsive) - Head Exam Head Exam: ATRAUMATIC, NORMOCEPHALIC - Eye Exam Eye Exam: absent: Conjunctival injection, EOMI, Normal appearance, Nystagmus, Periorbital swelling, Periorbital tenderness, PERRL, Scleral icterus Pupil Exam: Fixed, Mydriatic. absent: Irregular, Miosis, NORMAL ACCOMODATION, PERRL, Unequal Additional comments: Video EEG in place - ENT Exam Additional comments: ETT in place with surrounding soft tissue without clinical signs of infection - Respiratory Exam Additional comments: Mechanical ventilation pattern noted; Ventilator sounds noted throughout - Cardiovascular Exam Cardiovascular Exam: +S1, +S2. absent: Diastolic murmur, Gallop, Rubs, Murmur - GI/Abdominal Exam GI & Abdominal Exam: Soft, Normal Bowel Sounds. absent: Tenderness - Extremities Exam Extremities Exam: absent: Joint Swelling, Pedal Edema - Neurological Exam Additional comments: Intubated and unresponsive - Skin Skin Exam: Dry, Warm Assessment and Plan - Assessment and Plan (Free Text) Assessment: 37 year old male with a past medical history significant for cervical radiculopathy with herniated disc, cervical spondylosis with myelopathy, thoracic spondylosis, and depression that presented with visual hallucinations f or one month. Patient is currently intubated on mechanical ventilation after two episode of cardiopulmonary arrest and resuscitation. Plan: 1. Anoxic Encephalopathy -S/P two code blues and currently intubated and unresponsive -Video EEG showed no brain activity -Repeat Brain MRI with and without contrast showed no enhancing parenchymal nor extra-axial masses or collections, curvilinear focus noted likely representing developmental venous anomaly such as a venous angioma or underlying venous thrombosis, no evidence of ventricular dilatation when compared to prior CT scan and prior MRI, no evidence to suggest herpes encephalitis, and opacification several left-sided mastoid air cells -Brain MRI with and without contrast (11/17) was unremarkable with no evidence of herpes encephalitis -Echocardiogram showed an EF of 58%, no vegetations seen but limited study with poor visualization of valves -Continue Levophed and Vasopressin -Heme/Oncology, Neurosurgery, Neurology and Psychiatry consulted, all recommendations appreciated 2. Fever of Unknown Origin -Pancultures negative -Influenza, RPR, HIV, JACI, TB panel, CMV, Lyme serology, and Procalcitonin negative -Continue Acyclovir, Cefepime, Unasyn, Tamiflu, and Vancomycin -ID consulted, all recommendations appreciated 3. Tachycardia -Resolved -CTA chest per radiologist shows technically limited examination, cannot rule out segmental/subsegmental pulmonary artery embolism, no large central pulmonary embolism, incidentally noted bilateral gynecomastia -V/Q scan showed low probability for PE -Serial troponins within normal limits -Cardiology consulted, all recommendations appreciated 4. History of Seizures -Video EEG per neurologist showed possible subclinical seizures on 12/02/17 -Continue Depakote 5. Leukocytosis -Resolved -Likely secondary to stress 6. Hyperthyroidism -Continue Methimazole -Endocrinology consulted, all recommendations appreciated GI Prophylaxis: Pepcid DVT Prophylaxis: Lovenox Diet: NPO Disposition: Patient is currently full code. Will continue ongoing discussions with patients family regarding patients prognosis and all options. Patient seen and case discussed with attending, Dr. Denia Clinton. <Denia Clinton R - Last Filed: 12/04/17 18:02> Objective - Vital Signs/Intake and Output Vital Signs (last 24 hours): Temp Pulse Resp BP Pulse Ox 98.6 F 95 H 16 97/48 L 99 12/04/17 16:15 12/04/17 16:15 12/03/17 15:04 12/04/17 16:15 12/04/17 16:15 Intake and Output: 12/04/17 12/04/17 06:59 18:59 Intake Total 3447 500 Output Total 1500 Balance 1947 500 - Medications Medications: Current Medications Artificial Tears (Artificial Tears Opht Oint) 0 gm OU Q2 PRN PRN Reason: dry eyes Last Admin: 12/04/17 17:27 Dose: 1 applic Docusate Sodium (Colace) 100 mg PO BID [facility] Last Admin: 12/04/17 17:23 Dose: Not Given Enoxaparin Sodium (Lovenox) 40 mg SC DAILY [facility]; Protocol Last Admin: 12/04/17 09:38 Dose: 40 mg Famotidine (Pepcid) 20 mg IVP DAILY [facility] Last Admin: 12/04/17 09:37 Dose: 20 mg Vancomycin HCl (Vancomycin 1gm) 1 gm in 250 mls @ 167 mls/hr IVPB Q12H [facility]; Protocol Last Admin: 12/04/17 09:38 Dose: 167 mls/hr Sodium Chloride (Sodium Chloride 0.9%) 1,000 mls @ 100 mls/hr IV .Q10H [facility] Last Admin: 12/04/17 15:35 Dose: 100 mls/hr NOREPINEPHRINE BIT/0.9 % NACL (Levophed 4 Mg/ 250 Ml Ns Premixed) 4 mg in 250 mls @ 112.5 mls/hr IV .Q2H14M PRN; Protocol PRN Reason: TITRATE PER MD ORDER Last Admin: 12/04/17 14:45 Dose: 21 mcg/min, 78.75 mls/hr Cefepime HCl (Maxipime 2gm) 2 gm in 100 mls @ 100 mls/hr IVPB Q8 [facility]; Protocol Stop: 12/08/17 07:46 Last Admin: 12/04/17 13:20 Dose: 100 mls/hr Ampicillin Sodium/Sulbactam (Sodium 3 gm/ Sodium Chloride) 100 mls @ 200 mls/hr IVPB Q6 [facility]; Protocol Last Admin: 12/04/17 17:24 Dose: 200 mls/hr Acyclovir 1,000 mg/ Sodium (Chloride) 250 mls @ 167 mls/hr IV Q8 [facility]; Protocol Last Admin: 12/04/17 13:21 Dose: 167 mls/hr Vasopressin 20 units/ Sodium (Chloride) 101 mls @ 9.09 mls/hr IV .Q11H7M [facility]; Protocol Last Admin: 12/03/17 21:40 Dose: 0.03 u/min, 9.09 mls/hr Ibuprofen (Motrin Tab) 600 mg PO Q6H PRN PRN Reason: mild pain or fever >100.4 Last Admin: 12/01/17 05:49 Dose: 600 mg Methimazole (Tapazole) 10 mg PO DAILY [facility] Last Admin: 12/04/17 09:37 Dose: 10 mg Nystatin (Nystop Topical Powder) 0 gm TOP BID [facility] Last Admin: 12/04/17 17:27 Dose: 1 applic Oseltamivir Phosphate (Tamiflu Cap) 75 mg PO BID [facility]; Protocol Stop: 12/08/17 07:57 Last Admin: 12/04/17 17:25 Dose: 75 mg Risperidone (Risperdal Tab) 0.5 mg PO BID [facility]; Protocol Last Admin: 12/04/17 17:23 Dose: Not Given Risperidone (Risperdal Tab) 0.5 mg PO HS [facility]; Protocol Last Admin: 12/03/17 21:14 Dose: Not Given Valproate Sodium (Depakene Oral Soln) 600 mg PO TID [facility] Last Admin: 12/04/17 17:26 Dose: 600 mg - Labs Labs: 12/04/17 05:00 12/04/17 05:00 Attending/Attestation - Attestation I have personally seen and examined this patient.: Yes I have fully participated in the care of the patient.: Yes I have reviewed all pertinent clinical information, including history, physical exam and plan: Yes Notes (Text): Patient seen and examined by me at 8:15 AM with resident 12/03/17. Case including HPI, physical exam, and assessment and plan discussed with resident. Agree with above with following additions/corrections. Patient is a 37 year old male with past medical history that is significant for cervical radiculopathy with herniated disc, cervical spondylosis with myelopathy, thoracic spondylosis, and depression that presented to the emergency room with visual hallucinations. Patient remains is intubated and unresponsive. No family at bedside. Patient remains on pressors. No new issues overnight per nurse. Physical exam: General: Intubated and unresponsive. HEENT: Pupils fixed and dilated. Cardiovascular: Normal S1 and S2. No murmurs, rubs, or gallops appreciated Pulmonary: Positive vent sounds throughout Gastrointestinal: Soft, nondistended. Positive bowel sounds all 4 quadrants. Musculoskeletal: No edema appreciated Central Nervous System: Intubated and unresponsive. Dermatologic: Skin warm and dry. Positive well healed scar on back. Assessment and plan: Patient is a 37 year old male with past medical history that is significant for cervical radiculopathy with herniated disc, cervical spondylosis with myelopathy, thoracic spondylosis, and depression that presented to the emergency room with visual hallucinations. 1. Anoxic encephalopathy. S/P code blue x 2. Patient intubated. Patient with no activity on video EEG. Continue with pressors. MRI brain per radiologist shows no enhancing parenchymal nor extra-axial masses or collections seen at this time; there is a curvilinear focus of dark T1 and of very dark T2 seen on g radient echo weighted sequence which is felt to represent a developmental venous anomaly such as a venous angioma, however the focus exhibits hemosiderin blooming suggestive of some underlying venous thrombosis; this focus does exhibit mild contrast enhancement on prior study done does not enhance at present time; there is no evidence of ventricular dilatation when compared to prior CT scan and prior MRI; no enhancing lesions seen at this time; no evidence to suggest herpes encephalitis; opacification several left sided mastoid air cells. 2. Fever of unknown origin. With periods of hypothermia now. ID following, recommendations appreciated. All cultures negative. No signs of infection or can cer on any imaging. Patient has been on antibiotics. Continue with Ampicillin, Acyclovir, Cefepime, and Vancomycin. Continue with Tamiflu. Discussed at length with mother, does not want Lumbar puncture. 3. Tachycardia. Now resolved and patient on pressors. CTA chest per radiologist shows technically limited examination, cannot rule out segmental/subsegmental pulmonary artery embolism, no large central pulmonary embolism, incidentally noted bilateral gynecomastia. Troponins is within normal limits. Cardiology consulted, recommendations appreciated. V/Q low probablity for PE. 5. Possible seizure activity. Video EEG per neurologist showed possible subclinical seizures on 12/02/17. Continue with Depakote. 6. Leukocytosis. Likely reactive. Resolved Continue to monitor. 7. Hyperthyroidism. Endocrinology following, recommendations appreciated. Continue propranolol and methimazole. 8. Essential hypertension. Now with hypotension and on pressors. Case discussed at length with patient's kind mother Margo Haro from 4PM to 5PM. Mother understands patient's grave condition and is asking patient to be made a DNR. Mother needs more time before withdrawing care. Friends also at bedside. Many stories about patient exchanged by family and friends. All questions answered.
--- NOTE | 2017-12-04 17:41 | PN ---
DATE: 12/04/2017 SUBJECTIVE: The patient is unresponsive and hypotensive, currently on Levophed and vasopressin infusion. No reported bradyarrhythmia. PHYSICAL EXAMINATION: VITAL SIGNS: Blood pressure 93/47, heart rate 84, temperature 96.6, respirations 30. HEENT: No icterus. NECK: No JVD. CHEST: No rales. HEART: S1 and S2 regular. EXTREMITIES: 1+ pitting edema. LABORATORY DATA: Hemoglobin and hematocrit 9.1 and 28.9, white count 9.8, platelet count 190,000. Today's SMA-7: Sodium 150, potassium 2.9, chloride 120, CO2 of 25, glucose 122, BUN 18, creatinine 0.6. Brain MRI, no enhancing parenchymal or extra-axial masses or collection seen at this time. There is a curvilinear focus of dark T1 and of very dark T2 seen on gradient-echo weighted sequence, which is felt to represent development of venous anomaly such as venous angioma; however, the focus exhibits hemosiderin blooming suggestive of some underlying venous thrombosis. This focus does exhibit mild central enhancement on prior study, though does not enhance at the present time. No evidence of ventricular dilatation when compared to prior CT scan and prior MRI. Clinical correlation recommends no enhancing lesions seen at this time. No evidence to suggest herpes encephalitis. Chest x-ray revealed evolving left lower lobe infiltrate/left pleural effusion. ASSESSMENT: 1. Status post bradyarrhythmic arrest. There is no recurrence of sinus bradycardia. 2. Severe anoxic encephalopathy. 3. Hypotension. 4. Hyperthyroidism. RECOMMENDATIONS: Continue current valproate sodium 600 mg t.i.d. Continue IV ampicillin 3 g intravenously every 6 hours, subcutaneous Lovenox 40 mg daily, Tapazole 10 mg daily. Continue IV vancomycin and IV vasopressin. I will discontinue both Norvasc and Zestril. Family refused lumbar tap according to the neurology documentation. Stiven Sierra MD
--- NOTE | 2017-12-05 02:21 | CON ---
DATE: 12/04/2017 INPATIENT ELECTROPHYSIOLOGY CONSULTATION REASON FOR EVALUATION: EP consult is called in regards to: 1. Episode of PEA arrest. 2. Encephalopathy. 3. Cervical radiculopathy. 4. Hypotension. PHYSICIAN REQUESTING CONSULT: Dr. Sierra Thank you very much for this consult. HISTORY OF PRESENT ILLNESS: Mr. Babar Haro is an unfortunate 37-year-old male with past medical history significant for cervical radiculopathy with herniated disc, cervical spondylosis, secondary myelopathy, thoracic spondylosis, depression, who had initially been admitted on 11/06/2017 with hallucinations. The patient's condition had declined since having cervical spine surgery some months ago; at this point, clinical condition has declined to the point where he was requiring mechanical ventilation following 2 episodes of cardiopulmonary arrest, status post resuscitation. Post cardiac arrest, the patient has extremely limited positive findings on neurologic exam. I was asked to see him in regards to episodes of pulseless electrical activity. The patient is seen and examined in the ICU this afternoon. Case was reviewed, discussed with ICU team as well as associates who were at the bedside. In addition to the findings with pulseless electrical activity, the patient has also been intermittently febrile with a T-max of 102 degrees Fahrenheit. The patient remains intubated. PAST MEDICAL HISTORY: As mentioned in the history of present illness. PAST SURGICAL HISTORY: Significant for anterior cervical diskectomy and fusion C6-C7 in 03/2017, partial vertebrectomy in C6 and C7 (C6-C7) in 03/2015, C2 to C4 thoracic laminectomy with posterolateral fusion in 12/2015. ALLERGIES: TO ERYTHROMYCIN. SOCIAL HISTORY: Former heavy tobacco smoker, had been vaping. Denies EtOH or recreational drugs. He had been a shipyard worker. REVIEW OF SYSTEMS: Unable to be obtained secondary to obtunded status. MEDICATIONS: On review of current medications, the patient is on acyclovir 1000 mg in 250 mL at 167 mL per hour, every 8 hours, ampicillin/sulbactam, sodium 3 g in 200 mL IV piggyback every 6 hours, artificial tears, cefepime 2 g every 8 hours that is IV, Lovenox 40 mg subcu daily, Pepcid 20 mg IV daily, ibuprofen 600 mg every 6 hours p.r.n. mild pain and fever, Tapazole 10 mg p.o. daily, norepinephrine at 4 mg in 250 mL at 1.125 mL per hour, nystatin, Tamiflu, risperidone, Valproate Sodium 600 t.i.d., vasopressin. LABORATORY DATA: On review of relevant lab work, the patient has a white count of 9.8. H and H of 9.1 and 28.9. Platelet count of 190. CO2 of 34, pO2 of 111. Sodium of 150, potassium 2.9. BUN and creatinine is 18 and 0.6. ALT and AST is 23 and 49 respectively. Troponin is 0.05. Albumin 2.5, globulin is 3.2. EKG, which is done on 12/03/2017 that is yesterday shows normal sinus rhythm, relatively normal Q-wave duration, does appear to have some elevation of left atrial pressure, which at this point may be consistent with what is called MA interval is 140 milliseconds, nonspecific T wave changes are seen in the inferior leads and there is normal R wave progression, nonspecific ST-T wave changes. QT, QTc is 411 and 486 respectively. There is also evidence of right intraventricular conduction delay with a QRS duration of 86. ASSESSMENT AND PLAN: 1. Pulseless electrical activity, likely secondary to perhaps neurologic phenomenon, possibly seizures causing transient hypoxia and secondary heart rate deceleration, ultimately resulting in pulseless electrical activity. At this point, he did not appear to have any issues with his sinus node or chronotropic abilities, currently his sinus rhythm in the 90s. There is no intervention required from an Electrophysiology standpoint, permanent pacemaker is neither required nor indicated. We would replace potassium or at least confirm a normal potassium at this point. Supportive care is recommended as per the patient/family wishes. 2. Encephalopathy, which at this point likely permanent following 2 pulseless electrical activity arrest. Further workup and management as per Neurology. 3. Cervical radiculopathy for which the patient has had multiple surgeries at this point, may have some degree of autonomic dysfunction secondary to radiculopathy. At this point, we would continue again supportive care. 4. Hypotension, which is at this point requiring 2 pressors, again supportive care. 5. Hypokalemia, again, please do confirm and if low, we would replace. The patient was seen in the ICU. Thank you for allowing me to participate in the care of your patient. Please do not hesitate to call if you have any questions in regards to his care. Your's sincerely, Tomi Foley MD
[2017-12-05 06:24] LABS: ARTERIAL BLOOD GAS HCO3 24.7 mmol/L (21-28); ARTERIAL BLOOD GAS HEMOGLOBIN 8.4 g/dL (11.7-17.4); ARTERIAL BLOOD GAS O2 CAPACITY 11.7 mL/dl (16-24); ARTERIAL BLOOD GAS O2 CONTENT 11.6 ML/dl (15-23); ARTERIAL BLOOD GAS O2 SAT 99.3 % (95-98); ARTERIAL BLOOD GAS PCO2 39 mm/Hg (35-45); ARTERIAL BLOOD GAS PH 7.41 (7.35-7.45); ARTERIAL BLOOD GAS TCO2 25.9 mmol.L (22-28)
--- NOTE | 2017-12-05 06:24 | CP.PCM.PN ---
<Mercedes Dubon - Last Filed: 12/05/17 19:14> Subjective - Date & Time of Evaluation Date of Evaluation: 12/05/17 Time of Evaluation: 07:00 - Subjective Subjective: PGY-1 Mercedes Dubon D.O. medicine progress note for Dr. Greer's service: Patient was seen and examined this morning in the ICU. Patient is intubated and on a ventilator. He is unresponsive to painful stimuli. No gag reflex. His pupils are fixed and dilated. ROS unable to be obtained. Prognosis is very poor. Patient's condition was discussed with mother at bedside. Objective - Vital Signs/Intake and Output Vital Signs (last 24 hours): Temp Pulse Resp BP Pulse Ox 99.3 F 91 H 16 106/45 L 97 12/04/17 20:59 12/05/17 01:51 12/04/17 20:59 12/04/17 21:00 12/04/17 20:59 Intake and Output: 12/04/17 12/05/17 18:59 06:59 Intake Total 3819 Output Total 1300 Balance 2519 - Medications Medications: Current Medications Artificial Tears (Artificial Tears Opht Oint) 0 gm OU Q2 PRN PRN Reason: dry eyes Last Admin: 12/04/17 17:27 Dose: 1 applic Docusate Sodium (Colace) 100 mg PO BID BOBBY Last Admin: 12/04/17 17:23 Dose: Not Given Enoxaparin Sodium (Lovenox) 40 mg SC DAILY [facility]BY; Protocol Last Admin: 12/04/17 09:38 Dose: 40 mg Famotidine (Pepcid) 20 mg IVP DAILY [facility] Last Admin: 12/04/17 09:37 Dose: 20 mg Vancomycin HCl (Vancomycin 1gm) 1 gm in 250 mls @ 167 mls/hr IVPB Q12H [facility]BY; Protocol Last Admin: 12/04/17 21:14 Dose: 167 mls/hr Sodium Chloride (Sodium Chloride 0.9%) 1,000 mls @ 100 mls/hr IV .Q10H [facility]OBBY Last Admin: 12/04/17 15:35 Dose: 100 mls/hr Cefepime HCl (Maxipime 2gm) 2 gm in 100 mls @ 100 mls/hr IVPB Q8 BOBBY; Protocol Stop: 12/08/17 07:46 Last Admin: 12/04/17 21:13 Dose: 100 mls/hr Ampicillin Sodium/Sulbactam (Sodium 3 gm/ Sodium Chloride) 100 mls @ 200 mls/hr IVPB Q6 BOBBY; Protocol Last Admin: 12/04/17 17:24 Dose: 200 mls/hr Acyclovir 1,000 mg/ Sodium (Chloride) 250 mls @ 167 mls/hr IV Q8 [facility]OBBY; Protocol Last Admin: 12/04/17 21:12 Dose: 167 mls/hr Vasopressin 20 units/ Sodium (Chloride) 101 mls @ 9.09 mls/hr IV .Q11H7M [facility]OBBY; Protocol Last Admin: 12/04/17 18:00 Dose: 0.03 u/min, 9.09 mls/hr Norepinephrine Bitartrate 8 mg (/ Sodium Chloride) 258 mls @ 7.74 mls/hr IV .Q24H BOBBY; Protocol Last Admin: 12/04/17 21:12 Dose: 4 mcg/min, 7.74 mls/hr Ibuprofen (Motrin Tab) 600 mg PO Q6H PRN PRN Reason: mild pain or fever >100.4 Last Admin: 12/01/17 05:49 Dose: 600 mg Methimazole (Tapazole) 10 mg PO DAILY BOBYB Last Admin: 12/04/17 09:37 Dose: 10 mg Nystatin (Nystop Topical Powder) 0 gm TOP BID BOBBY Last Admin: 12/04/17 17:27 Dose: 1 applic Oseltamivir Phosphate (Tamiflu Cap) 75 mg PO BID BOBBY; Protocol Stop: 12/08/17 07:57 Last Admin: 12/04/17 17:25 Dose: 75 mg Risperidone (Risperdal Tab) 0.5 mg PO BID BOBBY; Protocol Last Admin: 12/04/17 17:23 Dose: Not Given Risperidone (Risperdal Tab) 0.5 mg PO HS BOBBY; Protocol Last Admin: 12/04/17 22:37 Dose: Not Given Valproate Sodium (Depakene Oral Soln) 600 mg PO TID BOBBY Last Admin: 12/04/17 17:26 Dose: 600 mg - Labs Labs: 12/04/17 05:00 12/04/17 05:00 - Constitutional Appears: No Acute Distress, Unkempt - Head Exam Head Exam: ATRAUMATIC, NORMAL INSPECTION, NORMOCEPHALIC - Eye Exam Eye Exam: absent: EOMI, PERRL Pupil Exam: Fixed - ENT Exam ENT Exam: Mucous Membranes Moist Additional comments: NGT in place endotracheal tube on ventilator - Respiratory Exam Respiratory Exam: Clear to Ausculation Bilateral, NORMAL BREATHING PATTERN (on vent) - Cardiovascular Exam Cardiovascular Exam: REGULAR RHYTHM, +S1, +S2 - GI/Abdominal Exam GI & Abdominal Exam: Soft, Normal Bowel Sounds - Rectal Exam Rectal Exam: Deferred - Extremities Exam Extremities Exam: Normal Inspection. absent: Pedal Edema - Neurological Exam Neurological Exam: absent: Alert, Awake - Skin Skin Exam: Dry, Intact, Normal Color, Warm Assessment and Plan - Assessment and Plan (Free Text) Assessment: Patient is a 37 year old male with a PMH of cervical radiculopathy w/ herniated disc, cervical spondylosis w/ myelopathy, thoracic spondylosis s/p extensive spinal surgeries, and depression vs schizophrenia spectrum under hospital management for AMS. Admitted for delirium 2/2 to polypharmacy, including chronic multiple opiates usage, which has resolved and he is now at baseline mental status. Patient has spiked fevers during hospital course possible due to hyperthyroidism; ruled out infectious causes except patient not consenting to LP. Also, patient has mod-severe muscle atrophy due to prolonged hospital stay, requiring physical therapy. Patient developed increased sinus tachycardia and was transferred to remote tele on 11/29. Patient also noted to intermittently have auditory and visual hallucinations- observed to be responding to internal stimuli. Patient seems to have a blank stare and become altered with each fever. His mental status resolves when afebrile. EEG was abnormal with subclinical seizure activity. On 12/02, ice grinder was called as patient became totally unresponsive with seizure-like activity. He was transferred to ICU. Later that evening, 2 code blues were called. Patient is currently intubated on mechanical ventilation after two episodes of cardiopulmonary arrest and resuscitation. Patient's family subsequently made him DNR. Plan: Anoxic encephalopathy- s/p cardiac arrest x2 - MRI w/ and w/o contrast: unremarkable, no evidence of herpes encephalitis - Discontinued opiates, benzos, stimulants - Brain flow scan pending - Neurology consulted (Levy)- follow-up for further plans Fevers of unknown origin, presently afebrile - Last fever was on 12/02 100.4 F, Tmax 103 - Urine, sputum, blood Cx negative on multiple occasions - LE Dopplers (11/23): no DVT - CXR (11/25): no active disease - RPR, HIV, JACI, TB panel, CMV negative - Procal <0.05 - Echo: EF 58%, no vegetations seen but limited study with poor visualization of valves - Acyclovir 1000 mg IV Q8H - Ampicillin 2 g Q6H - Cefepime 2 g IV Q8H - Vancomycin 1 g IV Q12H - Tamiflu 75 mg via NGT BID - ID consulted (Abraham)- medications as per ID - Hematology/oncology consulted (Rachel)- bone marrow Bx Seizures - Video EEG- seizure activity seen - Depakote 600 mg viz NGT TID - Neurology consulted (Cam) Sinus tachycardia, presently resolved - Continue to monitor vitals - EKG: no ST changes - CTA chest: Cannot rule out segmental/subsegmental pulmonary artery em bolism. No large central pulmonary embolism. - V/Q scan: no PE - Cardiology consulted (Mariela) - EP consulted (Og) Hyperthyroidism - Propranolol 20 mg PO TID- held - Methimazole 10 mg PO daily - Endocrinology consulted (Garrick) HTN- currently hypotension on 2 pressors (vasopressin, norepi) - All antihypertensives held - Continue to monitor vitals IVF: not indicated Diet: NPO GI ppx: Pepcid 20 mg IV daily VTE ppx: Lovenox 40 mg SC daily Code status: DNR Case discussed with attending, Dr. Greer. <Jomar Greer - Last Filed: 12/07/17 15:18> Objective - Vital Signs/Intake and Output Vital Signs (last 24 hours): Temp Pulse Resp BP Pulse Ox 100.2 F H 103 H 22 116/71 96 12/07/17 06:15 12/07/17 06:15 12/06/17 18:35 12/07/17 06:00 12/07/17 06:15 Intake and Output: 12/07/17 12/07/17 06:59 18:59 Intake Total 2255 Output Total 1550 Balance 705 - Medications Medications: Current Medications Artificial Tears (Artificial Tears Opht Oint) 0 gm OU Q2 PRN PRN Reason: dry eyes Last Admin: 12/04/17 17:27 Dose: 1 applic Enoxaparin Sodium (Lovenox) 40 mg SC DAILY BOBBY; Protocol Last Admin: 12/07/17 09:28 Dose: 40 mg Famotidine (Pepcid) 20 mg IVP DAILY [facility] Last Admin: 12/07/17 09:33 Dose: 20 mg Cefepime HCl (Maxipime 2gm) 2 gm in 100 mls @ 100 mls/hr IVPB Q8 BOBBY; Protocol Stop: 12/08/17 07:46 Last Admin: 12/07/17 05:17 Dose: 100 mls/hr Acyclovir 1,000 mg/ Sodium (Chloride) 250 mls @ 167 mls/hr IV Q8 BOBBY; Protocol Last Admin: 12/07/17 14:51 Dose: 167 mls/hr Vasopressin 20 units/ Sodium (Chloride) 101 mls @ 9.09 mls/hr IV .Q11H7M BOBBY; Protocol Last Admin: 12/07/17 03:05 Dose: 0.03 u/min, 9.09 mls/hr Potassium Chloride 20 meq/ (Sodium Chloride) 1,010 mls @ 100 mls/hr IV .Q10H6M [facility]OBBY Last Admin: 12/07/17 02:53 Dose: 100 mls/hr Ampicillin 2 gm/ Sodium (Chloride) 100 mls @ 200 mls/hr IVPB Q6 [facility]OBBY Last Admin: 12/07/17 05:18 Dose: 200 mls/hr NOREPINEPHRINE BIT/0.9 % NACL (Levophed 4 Mg/ 250 Ml Ns Premixed) 4 mg in 250 mls @ 16 mls/hr IV DAILY BOBBY NOREPINEPHRINE BIT/0.9 % NACL (Levophed 4 Mg/ 250 Ml Ns Premixed) 4 mg in 250 mls @ 16 mls/hr IV .EXTRA DOSE ONE Stop: 12/08/17 02:22 Methimazole (Tapazole) 10 mg PO DAILY [facility] Last Admin: 12/07/17 09:45 Dose: 10 mg Oseltamivir Phosphate (Tamiflu Cap) 75 mg PO BID BOBBY; Protocol Stop: 12/08/17 07:57 Last Admin: 12/07/17 09:41 Dose: 75 mg Valproate Sodium (Depakene Oral Soln) 600 mg PO TID [facility] Last Admin: 12/07/17 09:25 Dose: 600 mg - Labs Labs: 12/07/17 05:15 12/07/17 05:15 Attending/Attestation - Attestation I have personally seen and examined this patient.: Yes I have fully participated in the care of the patient.: Yes I have reviewed all pertinent clinical information, including history, physical exam and plan: Yes Notes (Text): 12/07/17 15:05 attending note; Patient seen and examined with resident in ICU. Patient is on ventilator. On pressors. patient's mother, father by the bedside. Patient is a 37 year old male with past medical history that is significant for cervical radiculopathy with herniated disc, cervical spondylosis with myelopathy, thoracic spondylosis, and depression that presented to the emergency room with visual hallucinations. 1. Anoxic encephalopathy. S/P code blue x 2. Patient intubated. no pupillary response. No gag reflex. Patient with no activity on video EEG. Continue with pressors. Had a long discussion with family about the current medical condition and prognosis. 2. Fever of unknown origin. With periods of hypothermia now. ID following, recommendations appreciated. All cultures negative. No signs of infection or cancer on any imaging. Continue with Ampicillin, Acyclovir, Cefepime, and Vancomycin. Continue with Tamiflu. 3. Tachycardia. Now resolved and patient on pressors. CTA chest per radiologist shows technically limited examination, cannot rule out segmental/subsegmental pulmonary artery embolism, no large central pulmonary embolism. Troponins is within normal limits. Cardiology consulted, recommendations appreciated. V/Q low probablity for PE. 4. Possible seizure activity. Video EEG per neurologist showed possible subclinical seizures on 12/02/17. Continue with Depakote. case discussed with neurologist in detail. Will start brain protocol. Brain flow scan ordered. 5. Leukocytosis. resolved. 6. Hyperthyroidism. Continue propranolol and methimazole. case discussed with milk of lime slaker in detail. Case discussed with oncology Dr. Ramos in detail. DR. Ramos talked to patient's mother in detail. Patient is DNR now. 12/07/17 15:14
[2017-12-05 07:19] LABS: BASO # 0.01 K/mm3 (0.0-2.0); BASO % 0.1 % (0.0-3.0); EOS # 0.1 (0.0-0.7); EOS % 1.4 % (1.5-5.0); GRAN # 5.88 (1.4-6.5); GRAN % 72.3 % (50.0-68.0); LYMPH # 1.6 (1.2-3.4); LYMPH % 19.1 % (22.0-35.0); MEAN CORPUSCULAR HEMOGLOBIN 28.7 pg (25.0-35.0); MEAN CORPUSCULAR HGB CONC 31.5 g/dl (31.0-37.0); MEAN PLATELET VOLUME 8.8 fl (7.0-11.0); MONO # 0.6 (0.1-0.6); MONO % 7.1 % (1.0-6.0); RBC 2.79 10^6/uL (3.5-6.1); RED CELL DISTRIBUTION WIDTH 17.2 % (11.5-14.5); WHITE BLOOD COUNT 8.1 10^3/ul (4.5-11.0)
[2017-12-05 07:42] LABS: ALB/GLOB RATIO 0.8 (1.1-1.8); ALBUMIN 2.5 g/dL (3.0-4.8); ALT/SGPT 42 U/L (7-56); AST/SGOT 23 U/L (17-59); BLOOD UREA NITROGEN 7 mg/dL (7-21); CALCIUM 9.3 mg/dL (8.4-10.5); GFR NON-AFRICAN AMERICAN > 60
[2017-12-05] MEDS ORDERED: Potassium Chloride 40 mEq/30 ml LIQ UD NG ONE (08:18)
[2017-12-05] MEDS ORDERED: Magnesium Sulfate 2 gm/50 ml 2 GM/50 ML BAG IVPB ONE (08:39)
--- NOTE | 2017-12-05 08:43 | CARD ---
APPROVED REPORT Date of service: 12/02/2017 EKG Measurement Heart [id number] <Conclusion> Normal sinus rhythm RVCD Q in lll STTW changes c/w ischemia, new Artifact V 5,6
--- NOTE | 2017-12-05 08:43 | RAD ---
Date of service: 12/05/2017 HISTORY: intubated COMPARISON: Portable chest 12/04/2017. FINDINGS: LUNGS: Endotracheal and nasogastric tubes are not significantly changed in position. Dense left basilar opacification persists suggesting airspace disease and/or left pleural effusion of [id number] volume. No interval change. No right-sided airspace disease or pleural effusion. No pneumothorax bilaterally. PLEURA: As above. CARDIOVASCULAR: Stable cardiomediastinal silhouette. No pulmonary vascular congestion identified. OSSEOUS STRUCTURES: No significant abnormalities. VISUALIZED UPPER ABDOMEN: Normal. OTHER FINDINGS: Cervical fusion hardware reiterated. IMPRESSION: Persistent left basilar airspace disease and possible pleural effusion with both likely present. Continued clinical and radiographic monitor advised.
--- NOTE | 2017-12-05 08:45 | CARD ---
APPROVED REPORT Date of service: 12/02/2017 EKG Measurement Heart [id number] <Conclusion> Sinus tachycardia RSR' or QR pattern in V1 suggests right ventricular conduction delay Improved repolarization c/w earlier ECG.
--- NOTE | 2017-12-05 08:49 | PN ---
DATE: 12/04/2017 SUBJECTIVE: Mr. Haro is on the ventilator. He is on two pressors. There is no response to sternal rubs. Pupils are dilated and fixed. There is no corneal. There is no gag. There is no doll eye. There is no spontaneous movement. There is no localization to sternal rub. PHYSICAL EXAMINATION: VITAL SIGNS: Temperature is 98.4, pulse 80, respiratory rate 16, blood pressure 85/39. As noted before, the EEG shows no normal rhythm. There is a bradycardic heart rate noted on EEG. There are no interictal epileptiform discharges. There is no seizure. Neurological exam is mentioned before in the note. NEURO IMAGING: As follows, MRI of the brain shows that there is a curvilinear gradient-echo weighted sequence. The patient was felt to have started development of venous anomaly, which is venous angioma. Of note, there is some suggestion of underlying venous thrombosis. There are no other lesions hemorrhages noted. There is no sign of herniation. There is heparin. IMPRESSION: This is a 37-year-old male status post cardiac arrest x2 on Tuesday. The patient has signs of meningismus and he is on heparin. He does not show any normal rhythms on EEG therefore. PLAN: 1. Brain protocol recommended. 2. Urine drug screen. Of note, there were new track sandoval noted by myself and his nurse as well as other physicians on his right leg that appeared to be 2- to 3-days old, it would be advisable to obtain as possible etiology for a sudden bradycardia and cardiac arrest. 3. Family to decide on further extubation or end of life care. Thank you for this consult. Van Levy MD
[2017-12-05] MEDS: Nystatin 100,000 Units/gm Topical Pow(15 gm) TOP SCH (09:18)
[2017-12-05] MEDS: Valproic Acid 250 mg/5 ml UD Cup PO SCH ×3 (09:19→17:06)
[2017-12-05] MEDS: Enoxaparin 40 mg Syringe SC SCH (09:22)
[2017-12-05] MEDS: methIMAzole 5 MG TAB PO SCH (09:24)
[2017-12-05] MEDS: Vancomycin 1gm in NS 250ml 1 GM/250 ML BAG IVPB SCH (09:26)
--- NOTE | 2017-12-05 12:09 | CP.PCM.CON ---
History of Present Illness - History of Present Illness History of Present Illness: Palliative consult requested by Dr Yu Greer Reason: Goals of care 37 year old male with history of cervical radiculopathy, herniated disc and cervical spondylosis who initially presented o 11/06/17 with agitation, visual hallucinations and other behavioral changes. Toxicology screen was positive for methadones, opiates and benzodiazipines which is prescribed to him. The patient remained altered, also had episodes of spiking high fevers. Seen by ID, has been on antibiotics since admission, blood and urine cultures negative. Neurology also following, initial CT scan of head on 11/06 was negative. MRI of brain 11/16 was unremarkable. On 11/19 CT's of cervical, thoracic and lumbar spine revealed large central osteophytes and opacification of longitudinal ligament in lower cervical spine with severe spinal stenosis, multiple posterior osteophytes throughout thoracic spine,largest are seen T4-T6 and T9/10, moderate stenosis, central osteophytes L3,4 and 5, theres is no evidence of osteomyelitis or abscess throughout. Hem/Onc consulted and bone marrow biopsy was planned to rule out malignancy. On 12/02 patient became unresponsive, appeared to be having seizure activity. COMPUTING CONSULTANT called. He was initially tachycardic but became bradycardic. CT of head negative. Transferred to ICU where he had PEA twice/Code Blue's. 24 hour EEG showed several subclinical electrograhic seizures throughout. MRI of brain 12/03 no enhancing masses, T1/T2 developmental venous anomaly such as venous angioma or underlying thrombus, no evidence of ventricular dilatation, no evidence of herpes encephalitis, opacification of left sided mastoid air cells. He is intubated and remains unresponsive, on vasopressors. GCS 3. Now DNR PMHx: cervical radiculopathy, herniated disc and cervical spondylosis, thoracic spondylosis, depression PSHX: anterior cervical dysectomy and fusion of C6 & C7, partial vertebrectomy and fusion of C6&& with bone, plating and instrucmentation, T2-T4 thoracic laminectomy with posterior lateral fusion. Social History: Former heavy smoker as per chart he denied Etoh or use of recreational drugs. Unemployed, lives with his mother Advance Care Planning: He does not have an Advanced Directive. His mother has made him DNR Family History: Non contributory Review of Systems: Unable to obtain, intubated Past Patient History - Tetanus Immunizations Tetanus Immunization: Unknown - Past Medical History & Family History Past Medical History?: Yes - Past Social History Smoking Status: Never Smoked Alcohol: None Drugs: Opiates, Prescription medications Home Situation {Lives}: With Family - CARDIAC Hx Cardiac Disorders: No - PULMONARY Hx Respiratory Disorders: No - NEUROLOGICAL Hx Neurological Disorder: Yes (cervical and thoracic radiculopathy) - HEENT Hx HEENT Problems: No - RENAL Hx Chronic Kidney Disease: No - ENDOCRINE/METABOLIC Hx Endocrine Disorders: No - HEMATOLOGICAL/ONCOLOGICAL Hx Blood Disorders: No - INTEGUMENTARY Hx Dermatological Problems: No - MUSCULOSKELETAL/RHEUMATOLOGICAL Hx Back Pain: Yes Hx Degenerative Joint Disease: Yes Hx Falls: No Hx Herniated Disk: Yes - GASTROINTESTINAL Hx Gastrointestinal Disorders: No Hx Gastroesophageal Reflux: Yes Other/Comment: ACID REFLUX - GENITOURINARY/GYNECOLOGICAL Hx Genitourinary Disorders: No - PSYCHIATRIC Hx Psychophysiologic Disorder: Yes Hx Depression: Yes Hx Substance Use: No - SURGICAL HISTORY Hx Orthopedic Surgery: Yes (3 orthopedic sxs noted in HPI) - ANESTHESIA Hx Anesthesia: Yes Meds Allergies/Adverse Reactions: Allergies Allergy/AdvReac Type Severity Reaction Status Date / Time erythromycin base Allergy ITCHING Verified 11/05/17 23:35 duloxetine HCl AdvReac RASH Verified 11/05/17 23:35 [From Cymbalta] - Medications Medications: Current Medications Artificial Tears (Artificial Tears Opht Oint) 0 gm OU Q2 PRN PRN Reason: dry eyes Last Admin: 12/04/17 17:27 Dose: 1 applic Docusate Sodium (Colace) 100 mg PO BID [facility] Last Admin: 12/05/17 09:04 Dose: Not Given Enoxaparin Sodium (Lovenox) 40 mg SC DAILY [facility]; Protocol Last Admin: 12/05/17 09:22 Dose: 40 mg Famotidine (Pepcid) 20 mg IVP DAILY [facility] Last Admin: 12/05/17 09:23 Dose: 20 mg Vancomycin HCl (Vancomycin 1gm) 1 gm in 250 mls @ 167 mls/hr IVPB Q12H [facility]; Protocol Last Admin: 12/05/17 09:26 Dose: 167 mls/hr Cefepime HCl (Maxipime 2gm) 2 gm in 100 mls @ 100 mls/hr IVPB Q8 [facility]; Protocol Stop: 12/08/17 07:46 Last Admin: 12/04/17 21:13 Dose: 100 mls/hr Ampicillin Sodium/Sulbactam (Sodium 3 gm/ Sodium Chloride) 100 mls @ 200 mls/hr IVPB Q6 [facility]; Protocol Last Admin: 12/05/17 11:26 Dose: 200 mls/hr Acyclovir 1,000 mg/ Sodium (Chloride) 250 mls @ 167 mls/hr IV Q8 [facility]; Protocol Last Admin: 12/04/17 21:12 Dose: 167 mls/hr Vasopressin 20 units/ Sodium (Chloride) 101 mls @ 9.09 mls/hr IV .Q11H7M [facility]; Protocol Last Admin: 12/04/17 18:00 Dose: 0.03 u/min, 9.09 mls/hr Norepinephrine Bitartrate 8 mg (/ Sodium Chloride) 258 mls @ 7.74 mls/hr IV .Q24H [facility]; Protocol Last Titration: 12/05/17 07:30 Dose: 12 mcg/min, 23.22 mls/hr Potassium Chloride 20 meq/ (Sodium Chloride) 1,010 mls @ 100 mls/hr IV .Q10H6M [facility] Last Admin: 12/05/17 09:24 Dose: 100 mls/hr Ibuprofen (Motrin Tab) 600 mg PO Q6H PRN PRN Reason: mild pain or fever >100.4 Last Admin: 12/01/17 05:49 Dose: 600 mg Methimazole (Tapazole) 10 mg PO DAILY [facility] Last Admin: 12/05/17 09:24 Dose: 10 mg Nystatin (Nystop Topical Powder) 0 gm TOP BID [facility] Last Admin: 12/05/17 09:18 Dose: 1 applic Oseltamivir Phosphate (Tamiflu Cap) 75 mg PO BID [facility]; Protocol Stop: 12/08/17 07:57 Last Admin: 12/05/17 09:24 Dose: 75 mg Risperidone (Risperdal Tab) 0.5 mg PO BID [facility]; Protocol Last Admin: 12/05/17 09:24 Dose: Not Given Risperidone (Risperdal Tab) 0.5 mg PO HS [facility]; Protocol Last Admin: 12/04/17 22:37 Dose: Not Given Valproate Sodium (Depakene Oral Soln) 600 mg PO TID [facility] Last Admin: 12/05/17 09:19 Dose: 600 mg Physical Exam - Constitutional Appears: Chronically Ill - Head Exam Head Exam: NORMOCEPHALIC - Eye Exam Pupil Exam: Fixed - ENT Exam ENT Exam: Mucous Membranes Moist - Respiratory Exam Respiratory Exam: Decreased Breath Sounds - Cardiovascular Exam Cardiovascular Exam: Tachycardia, +S1, +S2 - GI/Abdominal Exam GI & Abdominal Exam: Hypoactive Bowel Sounds, Soft - Extremities Exam Extremities exam: Positive for: pedal pulses present - Skin Skin Exam: Warm - Additional Findings Additional findings: Palliative performance scale rating 10% Results - Vital Signs Recent Vital Signs: Last Vital Signs Temp 97.9 F 12/05/17 08:30 Pulse 85 12/05/17 08:30 Resp 16 12/04/17 20:59 BP 112/64 12/05/17 08:30 Pulse Ox 97 12/05/17 08:30 - Labs Result Diagrams: 12/05/17 06:18 12/05/17 06:18 Labs: Laboratory Results - last 24 hr 12/04/17 12/05/17 12/05/17 12:35 06:00 06:18 WBC 8.1 RBC 2.79 L Hgb 8.0 L Hct 25.4 L MCV 91.0 MCH 28.7 MCHC 31.5 RDW 17.2 H Plt Count 177 MPV 8.8 Gran % 72.3 H Lymph % (Auto) 19.1 L [place] % (Auto) 7.1 H Eos % (Auto) 1.4 L Baso % (Auto) 0.1 Gran # 5.88 Lymph # (Auto) 1.6 [place] # (Auto) 0.6 Eos # (Auto) 0.1 Baso # (Auto) 0.01 pCO2 39 pO2 97.0 HCO3 24.7 ABG pH 7.41 ABG Total CO2 25.9 ABG O2 Saturation 99.3 H ABG O2 Content 11.6 L ABG Base Excess 0.1 ABG Hemoglobin 8.4 L ABG Carboxyhemoglobin 1.9 H POC ABG HHb (Measured) 0.7 ABG Methemoglobin 0.9 ABG O2 Capacity 11.7 L Hgb O2 Saturation 96.5 FiO2 50.0 Sodium Potassium Chloride Carbon Dioxide Anion Gap BUN Creatinine Est GFR ( Amer) Est GFR (Non-Af Amer) Random Glucose Calcium Phosphorus Magnesium Total Bilirubin AST ALT Alkaline Phosphatase Total Protein Albumin Globulin Albumin/Globulin Ratio Urine Opiates Screen Negative Urine Methadone Screen Negative Ur Barbiturates Screen Negative Ur Phencyclidine Scrn Negative Ur Amphetamines Screen Negative U Benzodiazepines Scrn Negative U Oth Cocaine Metabols Negative U Cannabinoids Screen Negative 12/05/17 06:18 WBC RBC Hgb Hct MCV MCH MCHC RDW Plt Count MPV Gran % Lymph % (Auto) [place] % (Auto) Eos % (Auto) Baso % (Auto) Gran # Lymph # (Auto) [place] # (Auto) Eos # (Auto) Baso # (Auto) pCO2 pO2 HCO3 ABG pH ABG Total CO2 ABG O2 Saturation ABG O2 Content ABG Base Excess ABG Hemoglobin ABG Carboxyhemoglobin POC ABG HHb (Measured) ABG Methemoglobin ABG O2 Capacity Hgb O2 Saturation FiO2 Sodium 146 Potassium 3.0 L Chloride 114 H Carbon Dioxide 25 Anion Gap 10 BUN 7 Creatinine 0.5 L Est GFR ( Amer) > 60 Est GFR (Non-Af Amer) > 60 Random Glucose 105 Calcium 9.3 Phosphorus 5.2 H Magnesium 1.5 L Total Bilirubin 0.6 AST 23 ALT 42 Alkaline Phosphatase 66 Total Protein 5.8 Albumin 2.5 L Globulin 3.3 Albumin/Globulin Ratio 0.8 L Urine Opiates Screen Urine Methadone Screen Ur Barbiturates Screen Ur Phencyclidine Scrn Ur Amphetamines Screen U Benzodiazepines Scrn U Oth Cocaine Metabols U Cannabinoids Screen Assessment & Plan - Assessment and Plan (Free Text) Assessment: 37 year old male with history of cervical radiculopathy, herniated disc and cervical spondylosis, thoracic spondylosis, depression who is admitted with fevers of unknown origin, seizure activity, AMS, s/p PEA and Code blue X 2. Intubated no sedation, unresponsive, no reflexes, vasopressors . GCS 3 Intent to meet with mother to discuss goals of care. Mother expected to visit today Plan: Seizures; Continue Depakote, Neurology following Fever of Unknown Origin: ID following, Continue Ampicillin, Cefepime, Vancoymcin and Acyclovir. Hypotension: Continue Levophed and Vasopressin Hyperthyroidism: Continue Tapazole Respiratory Failure: Remains intubated, no spontaneous breaths, Keep SA02 >95% Goals of care and advance care planning
--- NOTE | 2017-12-05 12:55 | CP.PCM.PN ---
<Amy Kimball - Last Filed: 12/05/17 17:21> Subjective - Date & Time of Evaluation Date of Evaluation: 12/05/17 Time of Evaluation: 10:00 - Subjective Subjective: Amy Kimball, PGY2, Neurology Progress Note for Dr Calderon: Patient seen and examined at bedside. No acute events overnight. No fevers. ROS limited due to patient's condition. Objective - Vital Signs/Intake and Output Vital Signs (last 24 hours): Temp Pulse Resp BP Pulse Ox 98.1 F 82 16 110/60 99 12/05/17 12:30 12/05/17 12:30 12/04/17 20:59 12/05/17 12:00 12/05/17 12:30 Intake and Output: 12/05/17 12/05/17 06:59 18:59 Intake Total 1500 8 Output Total 1400 Balance 100 8 - Medications Medications: Current Medications Artificial Tears (Artificial Tears Opht Oint) 0 gm OU Q2 PRN PRN Reason: dry eyes Last Admin: 12/04/17 17:27 Dose: 1 applic Docusate Sodium (Colace) 100 mg PO BID [facility] Last Admin: 12/05/17 09:04 Dose: Not Given Enoxaparin Sodium (Lovenox) 40 mg SC DAILY [facility]; Protocol Last Admin: 12/05/17 09:22 Dose: 40 mg Famotidine (Pepcid) 20 mg IVP DAILY [facility] Last Admin: 12/05/17 09:23 Dose: 20 mg Vancomycin HCl (Vancomycin 1gm) 1 gm in 250 mls @ 167 mls/hr IVPB Q12H [facility]; Protocol Last Admin: 12/05/17 09:26 Dose: 167 mls/hr Cefepime HCl (Maxipime 2gm) 2 gm in 100 mls @ 100 mls/hr IVPB Q8 [facility]; Protocol Stop: 12/08/17 07:46 Last Admin: 12/04/17 21:13 Dose: 100 mls/hr Ampicillin Sodium/Sulbactam (Sodium 3 gm/ Sodium Chloride) 100 mls @ 200 mls/hr IVPB Q6 [facility]; Protocol Last Admin: 12/05/17 11:26 Dose: 200 mls/hr Acyclovir 1,000 mg/ Sodium (Chloride) 250 mls @ 167 mls/hr IV Q8 [facility]; Protocol Last Admin: 12/04/17 21:12 Dose: 167 mls/hr Vasopressin 20 units/ Sodium (Chloride) 101 mls @ 9.09 mls/hr IV .Q11H7M [facility]; Protocol Last Admin: 12/04/17 18:00 Dose: 0.03 u/min, 9.09 mls/hr Norepinephrine Bitartrate 8 mg (/ Sodium Chloride) 258 mls @ 7.74 mls/hr IV .Q24H [facility]; Protocol Last Titration: 12/05/17 07:30 Dose: 12 mcg/min, 23.22 mls/hr Potassium Chloride 20 meq/ (Sodium Chloride) 1,010 mls @ 100 mls/hr IV .Q10H6M [facility] Last Admin: 12/05/17 09:24 Dose: 100 mls/hr Ibuprofen (Motrin Tab) 600 mg PO Q6H PRN PRN Reason: mild pain or fever >100.4 Last Admin: 12/01/17 05:49 Dose: 600 mg Methimazole (Tapazole) 10 mg PO DAILY [facility] Last Admin: 12/05/17 09:24 Dose: 10 mg Nystatin (Nystop Topical Powder) 0 gm TOP BID [facility] Last Admin: 12/05/17 09:18 Dose: 1 applic Oseltamivir Phosphate (Tamiflu Cap) 75 mg PO BID [facility]; Protocol Stop: 12/08/17 07:57 Last Admin: 12/05/17 09:24 Dose: 75 mg Risperidone (Risperdal Tab) 0.5 mg PO BID [facility]; Protocol Last Admin: 12/05/17 09:24 Dose: Not Given Risperidone (Risperdal Tab) 0.5 mg PO HS [facility]; Protocol Last Admin: 12/04/17 22:37 Dose: Not Given Valproate Sodium (Depakene Oral Soln) 600 mg PO TID [facility] Last Admin: 12/05/17 09:19 Dose: 600 mg - Labs Labs: 12/05/17 06:18 12/05/17 06:18 - Constitutional Appears: Toxic - Head Exam Head Exam: ATRAUMATIC, NORMOCEPHALIC - Eye Exam Eye Exam: absent: EOMI, PERRL Pupil Exam: Fixed - ENT Exam ENT Exam: Mucous Membranes Dry - Respiratory Exam Respiratory Exam: Clear to Ausculation Bilateral. absent: Rales, Rhonchi, Wheezes - Cardiovascular Exam Cardiovascular Exam: RRR, +S1, +S2. absent: Murmur - GI/Abdominal Exam GI & Abdominal Exam: Soft, Normal Bowel Sounds - Extremities Exam Extremities Exam: absent: Calf Tenderness, Pedal Edema - Neurological Exam Additional comments: Patient is off sedation with no brainstem reflexes noted. no dolls eyes, no corneals, no gag. no spontaneous movement no localizing to sternal rub - Skin Skin Exam: Pallor Assessment and Plan - Assessment and Plan (Free Text) Assessment: 37 year old male with a PMH of cervical radiculopathy w/ herniated disc, cervical spondylosis w/ myelopathy, thoracic spondylosis and depression, initially presented to [facility] for acute delirium, found to have episodes of spiking fevers. Patient then had 2 epsiodes of code blue, found to be in severe anoxic encephalopathy: - poor prognosis - EEG read shows no normal rhythms - C/w ICU, - On cefepime, ampicillin, acyclovir, tamiflu - On Valproic acid - On Vaso and levo for BP support - DNR currently - Palliative Jessy Paramonte on case, appreciate recs. - will initiate brain protocol. Ordered cerebral brain flow study. will perform apnea test, likely tomorrow. - will hold family meeting tomorrow along with rest of the team. Case discussed with Dr Calderon. <Van Calderon - Last Filed: 12/06/17 12:04> Objective - Vital Signs/Intake and Output Vital Signs (last 24 hours): Temp Pulse Resp BP Pulse Ox 97.2 F L 80 16 115/64 99 12/06/17 07:38 12/06/17 10:00 12/04/17 20:59 12/06/17 07:35 12/06/17 07:35 Intake and Output: 12/06/17 12/06/17 06:59 18:59 Intake Total 2757 80 Output Total 1500 Balance 1257 80 - Medications Medications: Current Medications Artificial Tears (Artificial Tears Opht Oint) 0 gm OU Q2 PRN PRN Reason: dry eyes Last Admin: 12/04/17 17:27 Dose: 1 applic Enoxaparin Sodium (Lovenox) 40 mg SC DAILY [facility]; Protocol Last Admin: 12/06/17 09:13 Dose: 40 mg Famotidine (Pepcid) 20 mg IVP DAILY [facility] Last Admin: 12/06/17 09:13 Dose: 20 mg Cefepime HCl (Maxipime 2gm) 2 gm in 100 mls @ 100 mls/hr IVPB Q8 [facility]; Protocol Stop: 12/08/17 07:46 Last Admin: 12/06/17 05:31 Dose: 100 mls/hr Acyclovir 1,000 mg/ Sodium (Chloride) 250 mls @ 167 mls/hr IV Q8 [facility]; Protocol Last Admin: 12/06/17 05:36 Dose: 167 mls/hr Vasopressin 20 units/ Sodium (Chloride) 101 mls @ 9.09 mls/hr IV .Q11H7M [facility]; Protocol Last Admin: 12/06/17 05:34 Dose: 0.03 u/min, 9.09 mls/hr Norepinephrine Bitartrate 8 mg (/ Sodium Chloride) 258 mls @ 7.74 mls/hr IV .Q24H [facility]; Protocol Last Admin: 12/06/17 09:14 Dose: 11 mcg/min, 21.29 mls/hr Potassium Chloride 20 meq/ (Sodium Chloride) 1,010 mls @ 100 mls/hr IV .Q10H6M [facility] Last Admin: 12/05/17 21:25 Dose: 100 mls/hr Ampicillin 2 gm/ Sodium (Chloride) 100 mls @ 200 mls/hr IVPB Q6 [facility] Last Admin: 12/06/17 05:29 Dose: 200 mls/hr Methimazole (Tapazole) 10 mg PO DAILY [facility] Last Admin: 12/06/17 09:13 Dose: 10 mg Oseltamivir Phosphate (Tamiflu Cap) 75 mg PO BID [facility]; Protocol Stop: 12/08/17 07:57 Last Admin: 12/06/17 09:13 Dose: 75 mg Risperidone (Risperdal Tab) 0.5 mg PO BID [facility]; Protocol Last Admin: 12/06/17 09:14 Dose: Not Given Risperidone (Risperdal Tab) 0.5 mg PO HS [facility]; Protocol Last Admin: 12/05/17 22:15 Dose: Not Given Valproate Sodium (Depakene Oral Soln) 600 mg PO TID [facility] Last Admin: 12/06/17 09:13 Dose: 600 mg - Labs Labs: 12/06/17 05:30 12/06/17 05:30 Assessment and Plan - Assessment and Plan (Free Text) Assessment: All medical record entries made by the resident were at my direction and personally dictated by me. I have reviewed the chart and agree that the record accurately reflects my personal performance of the history, physical exam, medical decision making, and the department course for this patient. I have also personally directed, reviewed, and agree with the discharge instructions and disposition. Addendum: Patient with severe anoxic encephalopathy who will be undergoing brain protocol. At present, EEG is flat with no normal rhythms. MRI brain on tuesday normal with no enhancement. CT l/S spine with samra normal Dr. calderon neurology
--- NOTE | 2017-12-05 13:04 | CP.PCM.PN ---
Subjective - Date & Time of Evaluation Date of Evaluation: 12/05/17 Time of Evaluation: 09:30 - Subjective Subjective: Patient continues to be on the ventilator, twitches a little with deep tactile stimuli but no purposeful movement. No fevers overnight. Objective - Vital Signs/Intake and Output Vital Signs (last 24 hours): Temp Pulse Resp BP Pulse Ox 99.3 F 91 H 16 106/45 L 97 12/04/17 20:59 12/05/17 01:51 12/04/17 20:59 12/04/17 21:00 12/04/17 20:59 Intake and Output: 12/04/17 12/05/17 18:59 06:59 Intake Total 3819 Output Total 1300 Balance 2519 - Medications Medications: Current Medications Artificial Tears (Artificial Tears Opht Oint) 0 gm OU Q2 PRN PRN Reason: dry eyes Last Admin: 12/04/17 17:27 Dose: 1 applic Docusate Sodium (Colace) 100 mg PO BID [facility] Last Admin: 12/04/17 17:23 Dose: Not Given Enoxaparin Sodium (Lovenox) 40 mg SC DAILY [facility]; Protocol Last Admin: 12/04/17 09:38 Dose: 40 mg Famotidine (Pepcid) 20 mg IVP DAILY [facility] Last Admin: 12/04/17 09:37 Dose: 20 mg Vancomycin HCl (Vancomycin 1gm) 1 gm in 250 mls @ 167 mls/hr IVPB Q12H [facility]; Protocol Last Admin: 12/04/17 21:14 Dose: 167 mls/hr Sodium Chloride (Sodium Chloride 0.9%) 1,000 mls @ 100 mls/hr IV .Q10H [facility] Last Admin: 12/04/17 15:35 Dose: 100 mls/hr Cefepime HCl (Maxipime 2gm) 2 gm in 100 mls @ 100 mls/hr IVPB Q8 [facility]; Protocol Stop: 12/08/17 07:46 Last Admin: 12/04/17 21:13 Dose: 100 mls/hr Ampicillin Sodium/Sulbactam (Sodium 3 gm/ Sodium Chloride) 100 mls @ 200 mls/hr IVPB Q6 [facility]; Protocol Last Admin: 12/04/17 17:24 Dose: 200 mls/hr Acyclovir 1,000 mg/ Sodium (Chloride) 250 mls @ 167 mls/hr IV Q8 [facility]; Protocol Last Admin: 12/04/17 21:12 Dose: 167 mls/hr Vasopressin 20 units/ Sodium (Chloride) 101 mls @ 9.09 mls/hr IV .Q11H7M [facility]; Protocol Last Admin: 12/04/17 18:00 Dose: 0.03 u/min, 9.09 mls/hr Norepinephrine Bitartrate 8 mg (/ Sodium Chloride) 258 mls @ 7.74 mls/hr IV .Q24H [facility]; Protocol Last Admin: 12/04/17 21:12 Dose: 4 mcg/min, 7.74 mls/hr Ibuprofen (Motrin Tab) 600 mg PO Q6H PRN PRN Reason: mild pain or fever >100.4 Last Admin: 12/01/17 05:49 Dose: 600 mg Methimazole (Tapazole) 10 mg PO DAILY [facility] Last Admin: 12/04/17 09:37 Dose: 10 mg Nystatin (Nystop Topical Powder) 0 gm TOP BID [facility] Last Admin: 12/04/17 17:27 Dose: 1 applic Oseltamivir Phosphate (Tamiflu Cap) 75 mg PO BID [facility]; Protocol Stop: 12/08/17 07:57 Last Admin: 12/04/17 17:25 Dose: 75 mg Risperidone (Risperdal Tab) 0.5 mg PO BID [facility]; Protocol Last Admin: 12/04/17 17:23 Dose: Not Given Risperidone (Risperdal Tab) 0.5 mg PO HS [facility]; Protocol Last Admin: 12/04/17 22:37 Dose: Not Given Valproate Sodium (Depakene Oral Soln) 600 mg PO TID [facility] Last Admin: 12/04/17 17:26 Dose: 600 mg - Labs Labs: 12/04/17 05:00 12/04/17 05:00 - Constitutional Appears: Chronically Ill, Other (intubated, unresponsive, on vasopressor support) - ENT Exam Additional comments: ET tube in place - Respiratory Exam Respiratory Exam: Decreased Breath Sounds. absent: Rales - Cardiovascular Exam Cardiovascular Exam: +S1, +S2 - GI/Abdominal Exam GI & Abdominal Exam: Soft. absent: Tenderness Assessment and Plan - Assessment and Plan (Free Text) Plan: Assessment systemic inflammatory response syndrome after cardiorespiratory arrest, now VDRF R/O due to seizures, etiology not clear, with fever of unknown origin , unlikely HSV encephalitis given brain MRI 11/17/2017 and 12/03/2017 with contrast do not show temporal lobe lesion or affectation (good sensitivity, therefore no suggestion of herpes encephalitis) and the patient was initially treated empirically for it with Acyclovir; R/O other forms of encephalitis such as autoimmune or CJD GERD cervical radiculopathy S/P surgery lumbar herniated disc S/P surgery depression Plan MRI brain with contrast is negative for brain lesions and did not suggest HSV encephalitis (2 times as outlined above); RPR serology is negative will continue Vancomycin and Cefepime - repeat cultures continue to be negative - we have added Ampicillin because of his current acute status (although it is unlikely Listeria since the presentation is more acute in nature, but given that he is very ill currently, will continue to empirically treat) and we have added Acyclovir again because of the severity of illness (although again it is unlikely as stated above) - we have been treating the patient empirically on a ntibiotics for meningitis making this unlikely bacterial meningitis (since he has worsened) - repeat blood and urine cx have been sent and will await results (blood cx negative x 1 day); follow up serum Crypt Ag (although fungal disease is less likely since fungal infections are generally very aggressive and as per Dr. Alhaji Clinton, the patient has been having symptoms for more than a month prior to admission) follow up further autoimmune work up discussed with Dr. Levy (Neurology) yesterday - EEG reviewed and it suggests seizures nut not very specific - we have been recommending LP during this adm ission for further testing - will need cell count, protein, VDRL, HSV PCR (although unlikely), CMV PCR, Enterovirus PCR, WNV IgM (these and many other viruses have no antiviral medication that can treat them), anti-NMDA receptor antibodies - autoimmune disease is in the differential especially since he also has hyperthyroidism - I spoke with Dr. Alhaji Clinton (hospitalist) over the weekend who stated that the patient, when he was lucid, AAOx3 was refusing lumbar puncture many times - LP was to be attempted last week but consent was not obtained per Dr. Levy - patient was scheduled for bone marrow biopsy today but patient is now DNR Lyme is also unlikely given that he has no history of travel to wooded areas, was on Doxycycline at the start on this admission and his Lyme serology in the blood is not positive (only showed one band which means this is unlikely Lyme) overall prognosis is grave - I have discussed this with the father and mother of the patient over the weekend - they do understand that the prognosis is grave and we have treated for possible infection but no proof of infection - also explained that there are many other viruses that may cause encephalitis which have no specific antiviral medicine or cure for them, also many other causes of encephalopathy and encephalitis such as autoimmune diseases that do not have specific treatment either
[2017-12-05] MEDS: Cefepime IV 2 gm in NS 2 GM/100 ML BAG IVPB SCH ×2 (13:16→22:18)
--- NOTE | 2017-12-05 13:54 | CP.CCUPN ---
<Manolo Silva - Last Filed: 12/05/17 14:50> CCU Subjective - Physician Review Subjective (Free Text): Manolo Silva DO, PGY-1 ICU Progress Note for Dr. Kimmie Hernandez Patient was seen and examined at bedside this AM. No acute events overnight. He is non-responsive to painful stimuli and reflexes are absent. CCU Objective - Vital Signs / Intake & Output Vital Signs (Last 4 hours): Vital Signs Temp Pulse BP Pulse Ox 12/05/17 12:30 98.1 F 82 99 12/05/17 12:15 98.1 F 81 99 12/05/17 12:00 98.1 F 83 110/60 98 12/05/17 11:45 98.1 F 81 99 12/05/17 11:30 98.2 F 81 99 12/05/17 11:15 98.2 F 81 99 12/05/17 11:00 98.2 F 83 105/58 L 97 12/05/17 10:45 98.2 F 83 99 12/05/17 10:30 98.2 F 81 98 12/05/17 10:15 98.2 F 81 99 12/05/17 10:00 98.1 F 80 98/50 L 97 Intake and Output (Last 8hrs): Intake & Output 12/04/17 12/05/17 12/05/17 22:59 06:59 14:59 Intake Total 3218 1500 8 Output Total 1300 1400 Balance 1918 100 8 Weight 197 lb Intake: IV 3038 1500 8 IVF 900 Left Antecubital 350 Right Hand 1150 antibiotics 1000 levophed 780 vassopressin 108 Other 180 0 Output: Urine 1300 1400 Urethral (Laureano) 1300 1400 Other 0 0 Other: # Bowel Movements 0 0 - Physical Exam Physical Exam Limitations: Positive for: Clinical Condition Head: Positive for: Atraumatic, Normocephalic Pupils: Positive for: Non-Reactive Conjunctiva: Positive for: Normal Mouth: Positive for: Moist Mucous Membranes Neck: Negative for: JVD Respiratory/Chest: Positive for: Clear to Auscultation, Other (ventilator dependent). Negative for: Respiratory Distress, Accessory Muscle Use, Rales, Rhonchi Cardiovascular: Positive for: Regular Rate and Rhythm. Negative for: Murmurs, Rub, Gallop Abdomen: Negative for: Distention, Mass/Organomegaly Upper Extremity: Positive for: Normal Inspection, NORMAL PULSES. Negative for: Cyanosis, Edema Lower Extremity: Positive for: Normal Inspection, NORMAL PULSES. Negative for: Edema Neurological: Positive for: Other (Non-responsive to painful stimuli or noise, pupils not reactive, dolls eyes not present, currently GCS=3) Skin: Positive for: Warm, Dry. Negative for: Rashes - Medications Active Medications: Active Medications Generic Name Dose Route Start Last Admin Trade Name Freq PRN Reason Stop Dose Admin Artificial Tears 0 gm 12/04/17 03:06 12/04/17 17:27 Artificial Tears Opht Oint OU 1 applic Q2 PRN Administration dry eyes Docusate Sodium 100 mg 12/02/17 10:00 12/05/17 09:04 Colace PO Not Given BID [facility] Enoxaparin Sodium 40 mg 12/01/17 10:00 12/05/17 09:22 Lovenox SC 40 mg DAILY [facility] Administration Protocol Famotidine 20 mg 12/03/17 10:00 12/05/17 09:23 Pepcid IVP 20 mg DAILY [facility] Administration Vancomycin HCl 1 gm in 250 mls @ 167 mls/hr 11/25/17 22:00 12/05/17 09:26 Vancomycin 1gm IVPB 167 mls/hr Q12H [facility] Administration Protocol Cefepime HCl 2 gm in 100 mls @ 100 mls/hr 12/03/17 07:45 12/05/17 13:16 Maxipime 2gm IVPB 12/08/17 07:46 100 mls/hr Q8 [facility] Administration Protocol Ampicillin Sodium/Sulbactam 100 mls @ 200 mls/hr 12/03/17 07:45 12/05/17 11:26 Sodium 3 gm/ Sodium Chloride IVPB 200 mls/hr Q6 [facility] Administration Protocol Acyclovir 1,000 mg/ Sodium 250 mls @ 167 mls/hr 12/03/17 18:01 12/05/17 13:17 Chloride IV 167 mls/hr Q8 [facility] Administration Protocol Vasopressin 20 units/ Sodium 101 mls @ 9.09 mls/hr 12/03/17 20:45 12/04/17 18:00 Chloride IV 0.03 u/min .Q11H7M [facility] 9.09 mls/hr Administration Protocol 0.03 U/MIN Norepinephrine Bitartrate 8 mg 258 mls @ 7.74 mls/hr 12/04/17 20:18 12/05/17 07:30 / Sodium Chloride IV 12 mcg/min .Q24H [facility] 23.22 mls/hr Titration Protocol 4 MCG/MIN Potassium Chloride 20 meq/ 1,010 mls @ 100 mls/hr 12/05/17 08:31 12/05/17 09:24 Sodium Chloride IV 100 mls/hr .Q10H6M [facility] Administration Ibuprofen 600 mg 11/28/17 14:13 12/01/17 05:49 Motrin Tab PO 600 mg Q6H PRN Administration mild pain or fever >100.4 Methimazole 10 mg 11/27/17 10:00 12/05/17 09:24 Tapazole PO 10 mg DAILY [facility] Administration Nystatin 0 gm 11/07/17 10:00 12/05/17 09:18 Nystop Topical Powder TOP 1 applic BID [facility] Administration Oseltamivir Phosphate 75 mg 12/03/17 10:00 12/05/17 09:24 Tamiflu Cap PO 12/08/17 07:57 75 mg BID [facility] Administration Protocol Risperidone 0.5 mg 11/25/17 18:00 12/05/17 09:24 Risperdal Tab PO Not Given BID [facility] Protocol Risperidone 0.5 mg 11/25/17 22:00 12/04/17 22:37 Risperdal Tab PO Not Given HS [facility] Protocol Valproate Sodium 600 mg 12/03/17 14:00 12/05/17 13:18 Depakene Oral Soln PO 600 mg TID [facility] Administration - Patient Studies Lab Studies: Microbiology Studies 12/02/17 23:25 Blood Culture - Preliminary Blood-Venous NO GROWTH AFTER 48 HOURS 12/02/17 23:25 Blood Culture - Preliminary Blood-Venous NO GROWTH AFTER 48 HOURS 11/29/17 16:04 Blood Culture - Final Blood-Venous NO GROWTH AFTER 5 DAYS Gram Stain - Final TEST NOT PERFORMED 11/29/17 16:04 Blood Culture - Final Blood-Venous NO GROWTH AFTER 5 DAYS Gram Stain - Final TEST NOT PERFORMED Lab Studies 12/05/17 12/05/17 12/05/17 Range/Units 06:18 06:18 06:00 WBC 8.1 (4.5-11.0) 10^3/ul RBC 2.79 L (3.5-6.1) 10^6/uL Hgb 8.0 L (14.0-18.0) g/dL Hct 25.4 L (42.0-52.0) % MCV 91.0 (80.0-105.0) fl MCH 28.7 (25.0-35.0) pg MCHC 31.5 (31.0-37.0) g/dl RDW 17.2 H (11.5-14.5) % Plt Count 177 (120.0-450.0) 10^3/uL MPV 8.8 (7.0-11.0) fl Gran % 72.3 H (50.0-68.0) % Lymph % (Auto) 19.1 L (22.0-35.0) % [place] % (Auto) 7.1 H (1.0-6.0) % Eos % (Auto) 1.4 L (1.5-5.0) % Baso % (Auto) 0.1 (0.0-3.0) % Gran # 5.88 (1.4-6.5) Lymph # (Auto) 1.6 (1.2-3.4) [place] # (Auto) 0.6 (0.1-0.6) Eos # (Auto) 0.1 (0.0-0.7) Baso # (Auto) 0.01 (0.0-2.0) K/mm3 pCO2 39 (35-45) mm/Hg pO2 97.0 (80-100) mm/Hg HCO3 24.7 (21-28) mmol/L ABG pH 7.41 (7.35-7.45) ABG Total CO2 25.9 (22-28) mmol.L ABG O2 Saturation 99.3 H (95-98) % ABG O2 Content 11.6 L (15-23) ML/dl ABG Base Excess 0.1 (-2.0-3.0) mmol/L ABG Hemoglobin 8.4 L (11.7-17.4) g/dL ABG Carboxyhemoglobin 1.9 H (0.5-1.5) % POC ABG HHb (Measured) 0.7 (0-5) % ABG Methemoglobin 0.9 (0.0-3.0) % ABG O2 Capacity 11.7 L (16-24) mL/dl Hgb O2 Saturation 96.5 (95.0-98.0) % FiO2 50.0 % Sodium 146 (132-148) mmol/L Potassium 3.0 L (3.6-5.0) mmol/L Chloride 114 H (98-107) mmol/L Carbon Dioxide 25 (21-33) mmol/L Anion Gap 10 (10-20) BUN 7 (7-21) mg/dL Creatinine 0.5 L (0.8-1.5) mg/dl Est GFR ( Amer) > 60 Est GFR (Non-Af Amer) > 60 Random Glucose 105 (70-110) mg/dL Calcium 9.3 (8.4-10.5) mg/dL Phosphorus 5.2 H (2.5-4.5) mg/dL Magnesium 1.5 L (1.7-2.2) mg/dL Total Bilirubin 0.6 (0.2-1.3) mg/dL AST 23 (17-59) U/L ALT 42 (7-56) U/L Alkaline Phosphatase 66 (38-126) U/L Total Protein 5.8 (5.8-8.3) g/dL Albumin 2.5 L (3.0-4.8) g/dL Globulin 3.3 gm/dL Albumin/Globulin Ratio 0.8 L (1.1-1.8) Laboratory Results - last 24 hr 12/05/17 12/05/17 12/05/17 06:00 06:18 06:18 WBC 8.1 RBC 2.79 L Hgb 8.0 L Hct 25.4 L MCV 91.0 MCH 28.7 MCHC 31.5 RDW 17.2 H Plt Count 177 MPV 8.8 Gran % 72.3 H Lymph % (Auto) 19.1 L [place] % (Auto) 7.1 H Eos % (Auto) 1.4 L Baso % (Auto) 0.1 Gran # 5.88 Lymph # (Auto) 1.6 [place] # (Auto) 0.6 Eos # (Auto) 0.1 Baso # (Auto) 0.01 pCO2 39 pO2 97.0 HCO3 24.7 ABG pH 7.41 ABG Total CO2 25.9 ABG O2 Saturation 99.3 H ABG O2 Content 11.6 L ABG Base Excess 0.1 ABG Hemoglobin 8.4 L ABG Carboxyhemoglobin 1.9 H POC ABG HHb (Measured) 0.7 ABG Methemoglobin 0.9 ABG O2 Capacity 11.7 L Hgb O2 Saturation 96.5 FiO2 50.0 Sodium 146 Potassium 3.0 L Chloride 114 H Carbon Dioxide 25 Anion Gap 10 BUN 7 Creatinine 0.5 L Est GFR ( Amer) > 60 Est GFR (Non-Af Amer) > 60 Random Glucose 105 Calcium 9.3 Phosphorus 5.2 H Magnesium 1.5 L Total Bilirubin 0.6 AST 23 ALT 42 Alkaline Phosphatase 66 Total Protein 5.8 Albumin 2.5 L Globulin 3.3 Albumin/Globulin Ratio 0.8 L Review of Systems - Review of Systems Systems not reviewed;Unavailable: Intubated Critical Care Progress Note - Ventilator Checklist Head of Bed 30 Degrees: Yes Daily Sedation Vacation: Yes Daily Assessment of Readiness to Wean: Yes Daily Spontaneous Breathing Trial: Yes PUD Prophalyxis: Yes DVT Prophylaxis: Yes - Vent Settings MODE:: PRVC TIDAL VOLUME:: 500 RESP RATE:: 16 FIO2:: 50 PEEP:: 5 - Extremities/Vascular Does the Patient have a Central Venous Catheter?: Yes Does the Patient have a Laureano Catheter?: Yes - Prophylaxis GI Prophylaxis GI: Pepsid - Prophylaxis DVT Prophylaxis DVT: Lovenox - Nutrition Nutrition: Nutrition Category Date Time Status NPO Diet [DIET] Diets 12/02/17 Breakfast Ordered Assessment/Plan - Assessment and Plan (Free Text) Assessment: 37 yo M originally presented to ED with intermittent fever (Tmax 103), altered mental status, and hallucinations admitted for neurological evaluation. He initially refused LP. While in CT, he became bradycardic and hypotensive and was subsequently admitted to ICU. On his first night in ICU, he coded twice the first time with bradycardia with asystole and the second with PEA. He is now non-responsive with GCS of 3 likely secondary to anoxic encephalopathy. Plan: Neuro: -Off sedation with no brainstem reflexes noted -Dolls eyes, gag, and pupillary reflexes absent -Has severe anoxic brain injury after two codes -Codes were likely 2/2 underlying seizure disorder and status epilepticus -No infectious etiology identified at this time, although patient initially refused LP -Poor prognosis -Will discuss prognosis further and the plan going forward with patient's mother with ICU team, neurology, and palliative care -Palliative care and neurology consulted, recs appreciated Cardio: -RRR, normotensive, no signs of HD compromise -Maintain MAP>65. -Monitor for S/S, HD compromise -Has required 22.5 of Levophed and 9 of vasopressin -Cardiology following for bradycardic episode, recs appreciated Pulm: -No signs of respiratory distress. CTA B/L -ABG all within normal limits -Maintain O2 saturation>95%. -Vent: PRVC TV 500, PEEP 5, O2 50%, RR 16 -Continue daily CXR, ABG -Elevated head of bed 30 degrees GI: -Keep NPO -Continue pepcid for prophylaxis /Nephro: -BUN/Cr stable -UOP of 2700 -Maintain euvolemia -Replete electrolytes as needed Endocrine: -Maintain euglycemia -Found to have low TSH on admission -Subsequently treated with methimazole -Endocrinology following, recs appreciated Heme/Onc: -H/H stable. -No signs of HD compromise. -Continue monitoring H/H -Bone marrow biopsy was recommended to search for other possible infectious etiologies -Will discuss plan with family today ID: -Afebrile, no leukocytosis since 12/02/17 -No infectious etiology of condition identified so far -Blood, urine cx all negative -LP not performed at the time as patient was refusing at the time -On empiric acyclovir, unasyn, vanc, cefepime GI/DVT PPX: Pepcid and lovenox Case and plan reviewed with my attending Dr. Kimmie Silva, DO IM Resident PGY-1 <Phoebe Hernandez - Last Filed: 12/05/17 17:55> CCU Objective - Vital Signs / Intake & Output Vital Signs (Last 4 hours): Vital Signs Temp Pulse BP Pulse Ox 12/05/17 17:35 114/58 L 12/05/17 14:45 97.9 F 80 98 12/05/17 14:30 98.1 F 80 98 12/05/17 14:15 98.1 F 81 98 12/05/17 14:00 98.1 F 79 104/55 L 97 Intake and Output (Last 8hrs): Intake & Output 12/05/17 12/05/17 12/05/17 06:59 14:59 22:59 Intake Total 1601 8 Output Total 1400 Balance 201 8 Weight 89.358 kg Intake: IV 1601 8 Left Antecubital 350 Right Hand 1150 Other 0 Output: Urine 1400 Urethral (Laureano) 1400 Other 0 Other: # Bowel Movements 0 - Medications Active Medications: Active Medications Generic Name Dose Route Start Last Admin Trade Name Freq PRN Reason Stop Dose Admin Artificial Tears 0 gm 12/04/17 03:06 12/04/17 17:27 Artificial Tears Opht Oint OU 1 applic Q2 PRN Administration dry eyes Docusate Sodium 100 mg 12/02/17 10:00 12/05/17 17:01 Colace PO Not Given BID [facility] Enoxaparin Sodium 40 mg 12/01/17 10:00 12/05/17 09:22 Lovenox SC 40 mg DAILY [facility] Administration Protocol Famotidine 20 mg 12/03/17 10:00 12/05/17 09:23 Pepcid IVP 20 mg DAILY [facility] Administration Vancomycin HCl 1 gm in 250 mls @ 167 mls/hr 11/25/17 22:00 12/05/17 09:26 Vancomycin 1gm IVPB 167 mls/hr Q12H [facility] Administration Protocol Cefepime HCl 2 gm in 100 mls @ 100 mls/hr 12/03/17 07:45 12/05/17 13:16 Maxipime 2gm IVPB 12/08/17 07:46 100 mls/hr Q8 [facility] Administration Protocol Acyclovir 1,000 mg/ Sodium 250 mls @ 167 mls/hr 12/03/17 18:01 12/05/17 13:17 Chloride IV 167 mls/hr Q8 [facility] Administration Protocol Vasopressin 20 units/ Sodium 101 mls @ 9.09 mls/hr 12/03/17 20:45 12/05/17 17:35 Chloride IV 0.03 u/min .Q11H7M [facility] 9.09 mls/hr Administration Protocol 0.03 U/MIN Norepinephrine Bitartrate 8 mg 258 mls @ 7.74 mls/hr 12/04/17 20:18 12/05/17 07:30 / Sodium Chloride IV 12 mcg/min .Q24H [facility] 23.22 mls/hr Titration Protocol 4 MCG/MIN Potassium Chloride 20 meq/ 1,010 mls @ 100 mls/hr 12/05/17 08:31 12/05/17 09:24 Sodium Chloride IV 100 mls/hr .Q10H6M [facility] Administration Ampicillin 2 gm/ Sodium 100 mls @ 200 mls/hr 12/05/17 18:00 12/05/17 17:00 Chloride IVPB 200 mls/hr Q6 [facility] Administration Ibuprofen 600 mg 11/28/17 14:13 12/01/17 05:49 Motrin Tab PO 600 mg Q6H PRN Administration mild pain or fever >100.4 Methimazole 10 mg 11/27/17 10:00 12/05/17 09:24 Tapazole PO 10 mg DAILY [facility] Administration Oseltamivir Phosphate 75 mg 12/03/17 10:00 12/05/17 17:06 Tamiflu Cap PO 12/08/17 07:57 75 mg BID [facility] Administration Protocol Risperidone 0.5 mg 11/25/17 18:00 12/05/17 17:02 Risperdal Tab PO Not Given BID [facility] Protocol Risperidone 0.5 mg 11/25/17 22:00 12/04/17 22:37 Risperdal Tab PO Not Given HS [facility] Protocol Valproate Sodium 600 mg 12/03/17 14:00 12/05/17 17:06 Depakene Oral Soln PO 600 mg TID [facility] Administration - Patient Studies Lab Studies: Microbiology Studies 12/02/17 23:25 Blood Culture - Preliminary Blood-Venous NO GROWTH AFTER 48 HOURS 12/02/17 23:25 Blood Culture - Preliminary Blood-Venous NO GROWTH AFTER 48 HOURS 11/29/17 16:04 Blood Culture - Final Blood-Venous NO GROWTH AFTER 5 DAYS Gram Stain - Final TEST NOT PERFORMED 11/29/17 16:04 Blood Culture - Final Blood-Venous NO GROWTH AFTER 5 DAYS Gram Stain - Final TEST NOT PERFORMED Lab Studies 12/05/17 12/05/17 12/05/17 Range/Units 17:15 06:18 06:18 WBC 8.1 (4.5-11.0) 10^3/ul RBC 2.79 L (3.5-6.1) 10^6/uL Hgb 8.0 L (14.0-18.0) g/dL Hct 25.4 L (42.0-52.0) % MCV 91.0 (80.0-105.0) fl MCH 28.7 (25.0-35.0) pg MCHC 31.5 (31.0-37.0) g/dl RDW 17.2 H (11.5-14.5) % Plt Count 177 (120.0-450.0) 10^3/uL MPV 8.8 (7.0-11.0) fl Gran % 72.3 H (50.0-68.0) % Lymph % (Auto) 19.1 L (22.0-35.0) % [place] % (Auto) 7.1 H (1.0-6.0) % Eos % (Auto) 1.4 L (1.5-5.0) % Baso % (Auto) 0.1 (0.0-3.0) % Gran # 5.88 (1.4-6.5) Lymph # (Auto) 1.6 (1.2-3.4) [place] # (Auto) 0.6 (0.1-0.6) Eos # (Auto) 0.1 (0.0-0.7) Baso # (Auto) 0.01 (0.0-2.0) K/mm3 pCO2 (35-45) mm/Hg pO2 (80-100) mm/Hg HCO3 (21-28) mmol/L ABG pH (7.35-7.45) ABG Total CO2 (22-28) mmol.L ABG O2 Saturation (95-98) % ABG O2 Content (15-23) ML/dl ABG Base Excess (-2.0-3.0) mmol/L ABG Hemoglobin (11.7-17.4) g/dL ABG Carboxyhemoglobin (0.5-1.5) % POC ABG HHb (Measured) (0-5) % ABG Methemoglobin (0.0-3.0) % ABG O2 Capacity (16-24) mL/dl Hgb O2 Saturation (95.0-98.0) % FiO2 % Sodium 146 (132-148) mmol/L Potassium 3.6 3.0 L (3.6-5.0) mmol/L Chloride 114 H (98-107) mmol/L Carbon Dioxide 25 (21-33) mmol/L Anion Gap 10 (10-20) BUN 7 (7-21) mg/dL Creatinine 0.5 L (0.8-1.5) mg/dl Est GFR ( Amer) > 60 Est GFR (Non-Af Amer) > 60 Random Glucose 105 (70-110) mg/dL Calcium 9.3 (8.4-10.5) mg/dL Phosphorus 5.2 H (2.5-4.5) mg/dL Magnesium 1.5 L (1.7-2.2) mg/dL Total Bilirubin 0.6 (0.2-1.3) mg/dL AST 23 (17-59) U/L ALT 42 (7-56) U/L Alkaline Phosphatase 66 (38-126) U/L Total Protein 5.8 (5.8-8.3) g/dL Albumin 2.5 L (3.0-4.8) g/dL Globulin 3.3 gm/dL Albumin/Globulin Ratio 0.8 L (1.1-1.8) 12/05/17 Range/Units 06:00 WBC (4.5-11.0) 10^3/ul RBC (3.5-6.1) 10^6/uL Hgb (14.0-18.0) g/dL Hct (42.0-52.0) % MCV (80.0-105.0) fl MCH (25.0-35.0) pg MCHC (31.0-37.0) g/dl RDW (11.5-14.5) % Plt Count (120.0-450.0) 10^3/uL MPV (7.0-11.0) fl Gran % (50.0-68.0) % Lymph % (Auto) (22.0-35.0) % [place] % (Auto) (1.0-6.0) % Eos % (Auto) (1.5-5.0) % Baso % (Auto) (0.0-3.0) % Gran # (1.4-6.5) Lymph # (Auto) (1.2-3.4) [place] # (Auto) (0.1-0.6) Eos # (Auto) (0.0-0.7) Baso # (Auto) (0.0-2.0) K/mm3 pCO2 39 (35-45) mm/Hg pO2 97.0 (80-100) mm/Hg HCO3 24.7 (21-28) mmol/L ABG pH 7.41 (7.35-7.45) ABG Total CO2 25.9 (22-28) mmol.L ABG O2 Saturation 99.3 H (95-98) % ABG O2 Content 11.6 L (15-23) ML/dl ABG Base Excess 0.1 (-2.0-3.0) mmol/L ABG Hemoglobin 8.4 L (11.7-17.4) g/dL ABG Carboxyhemoglobin 1.9 H (0.5-1.5) % POC ABG HHb (Measured) 0.7 (0-5) % ABG Methemoglobin 0.9 (0.0-3.0) % ABG O2 Capacity 11.7 L (16-24) mL/dl Hgb O2 Saturation 96.5 (95.0-98.0) % FiO2 50.0 % Sodium (132-148) mmol/L Potassium (3.6-5.0) mmol/L Chloride (98-107) mmol/L Carbon Dioxide (21-33) mmol/L Anion Gap (10-20) BUN (7-21) mg/dL Creatinine (0.8-1.5) mg/dl Est GFR ( Amer) Est GFR (Non-Af Amer) Random Glucose (70-110) mg/dL Calcium (8.4-10.5) mg/dL Phosphorus (2.5-4.5) mg/dL Magnesium (1.7-2.2) mg/dL Total Bilirubin (0.2-1.3) mg/dL AST (17-59) U/L ALT (7-56) U/L Alkaline Phosphatase (38-126) U/L Total Protein (5.8-8.3) g/dL Albumin (3.0-4.8) g/dL Globulin gm/dL Albumin/Globulin Ratio (1.1-1.8) Laboratory Results - last 24 hr 12/05/17 12/05/17 12/05/17 06:00 06:18 06:18 WBC 8.1 RBC 2.79 L Hgb 8.0 L Hct 25.4 L MCV 91.0 MCH 28.7 MCHC 31.5 RDW 17.2 H Plt Count 177 MPV 8.8 Gran % 72.3 H Lymph % (Auto) 19.1 L [place] % (Auto) 7.1 H Eos % (Auto) 1.4 L Baso % (Auto) 0.1 Gran # 5.88 Lymph # (Auto) 1.6 [place] # (Auto) 0.6 Eos # (Auto) 0.1 Baso # (Auto) 0.01 pCO2 39 pO2 97.0 HCO3 24.7 ABG pH 7.41 ABG Total CO2 25.9 ABG O2 Saturation 99.3 H ABG O2 Content 11.6 L ABG Base Excess 0.1 ABG Hemoglobin 8.4 L ABG Carboxyhemoglobin 1.9 H POC ABG HHb (Measured) 0.7 ABG Methemoglobin 0.9 ABG O2 Capacity 11.7 L Hgb O2 Saturation 96.5 FiO2 50.0 Sodium 146 Potassium 3.0 L Chloride 114 H Carbon Dioxide 25 Anion Gap 10 BUN 7 Creatinine 0.5 L Est GFR ( Amer) > 60 Est GFR (Non-Af Amer) > 60 Random Glucose 105 Calcium 9.3 Phosphorus 5.2 H Magnesium 1.5 L Total Bilirubin 0.6 AST 23 ALT 42 Alkaline Phosphatase 66 Total Protein 5.8 Albumin 2.5 L Globulin 3.3 Albumin/Globulin Ratio 0.8 L 12/05/17 17:15 WBC RBC Hgb Hct MCV MCH MCHC RDW Plt Count MPV Gran % Lymph % (Auto) [place] % (Auto) Eos % (Auto) Baso % (Auto) Gran # Lymph # (Auto) [place] # (Auto) Eos # (Auto) Baso # (Auto) pCO2 pO2 HCO3 ABG pH ABG Total CO2 ABG O2 Saturation ABG O2 Content ABG Base Excess ABG Hemoglobin ABG Carboxyhemoglobin POC ABG HHb (Measured) ABG Methemoglobin ABG O2 Capacity Hgb O2 Saturation FiO2 Sodium Potassium 3.6 Chloride Carbon Dioxide Anion Gap BUN Creatinine Est GFR ( Amer) Est GFR (Non-Af Amer) Random Glucose Calcium Phosphorus Magnesium Total Bilirubin AST ALT Alkaline Phosphatase Total Protein Albumin Globulin Albumin/Globulin Ratio Critical Care Progress Note - Nutrition Nutrition: Nutrition Category Date Time Status NPO Diet [DIET] Diets 12/02/17 Breakfast Ordered Addendum Addendum: 12/05/17 17:54 ICU Attending Addendum: Patient seen and examined. Case reviewed on round with housestaff. Agree with resident note above with the following additions/exceptions: This is an unfortunate case of a 37M with hx of cervical radiculopathy, herniated disc and cervical spondylosis who initially presented o 11/06/17 with agitation, visual hallucinations undergoing extensive workup inpatient subsequently became unrepsonive on 12/02 and went into PEA arrest. ROSC achieved but neuro status suffered. 24 hour EEG showed several subclinical electrograhic seizures throughout. MRI of brain 12/03 no enhancing masses, there was development of venous anomaly. No masses. His neuro exam off sedation consistent with severe brain injury concerning for brain . I met his parents and godmother for the first time today. They informed me they were aware that "there was no hope" and he was "practically ". They had several questions as why this happened. I explained to them possibilities however guraded that these were speculations based on initial chart review. They requested an autopsy be done after all care has stopped. I spoke with med examinaers office who could not assess if he is an ME cases until he is pronounced . They did inform me that if he was not an ME case, the family could request an autopsy and make arrangements with path dept. I relayed this info to them. Given the sudden change of events, they were not ready to take him off the ventilator and stop prolonging treatment for him just yet. They wanted to wait for 2 siblings. They have made him DNR. Tomorrow we are planning to perform the brain protocol which included apnea testing with Neuro at [facility]. I informed the family that if that test s hows brain , he would be pronounced at that point. For apnea test, will get ABG tomorrow AM with goal of normal pH and Pco2. Will also ensure he remains off sedation, no sedatives should be given. rest of care above Phoebe Hernandez MD [employer] Crtical Care TIme: 49 mins
[2017-12-05] MEDS: AMPicillin 2 GM in Sodium Chloride 0.9% 100 ML IVPB SCH (17:00)
[2017-12-05 17:55] LABS: BLOOD UREA NITROGEN 5 mg/dL (7-21); CALCIUM 9.1 mg/dL (8.4-10.5); GFR NON-AFRICAN AMERICAN > 60
--- NOTE | 2017-12-05 21:49 | PN ---
DATE: 12/05/2017 SUBJECTIVE: The patient is still on Levophed and vasopressin infusion. He is unresponsive and has no reflexes. The patient's mother signed do not resuscitate statement. PHYSICAL EXAMINATION: VITAL SIGNS: Blood pressure 104/55, heart rate 79, temperature 98.1, respirations 33. HEENT: Pale conjunctivae. CHEST: Bilateral rhonchi. HEART: S1 and S2 regular. EXTREMITIES: Trace leg edema. LABORATORY DATA: Hemoglobin and hematocrit 8 and 25.4, white count and platelet count are within normal limits. Today's SMA-7: Sodium 140, potassium 3, chloride 114, CO2 of 25, glucose 105, BUN 7, creatinine 0.5. Today's chest x-ray report, persistent left basal airspace disease and possible pleural effusion, which most likely present. The most recent toxicology screen yesterday was negative. The initial one was on 11/06/2017 was positive for opiate, methadone, and benzodiazepines. ASSESSMENT: 1. Anoxic encephalopathy. 2. Bradyarrhythmia and respiratory failure requiring intubation and mechanical ventilation. The patient is currently ventilator dependent. 3. Hypotension. 4. Hyperthyroidism. RECOMMENDATIONS: Continue current Levophed and vasopressin. Continue IV vancomycin 1 g every 12 hours, Tapazole 10 mg once a day, IV cefepime 2 g every 8 hours, Lovenox 40 mg subcutaneously daily, valproate sodium 600 mg t.i.d. via nasogastric tube. Overall prognosis is grave and the patient's mother may request to terminal extubation. Stiven Sierra MD
[2017-12-06] MEDS: AMPicillin 2 GM in Sodium Chloride 0.9% 100 ML IVPB SCH ×4 (00:06→18:41)
[2017-12-06] MEDS: Cefepime IV 2 gm in NS 2 GM/100 ML BAG IVPB SCH ×3 (05:31→23:28)
[2017-12-06 06:29] LABS: ARTERIAL BLOOD GAS HEMOGLOBIN 7.7 g/dL (11.7-17.4); ARTERIAL BLOOD GAS O2 CAPACITY 10.9 mL/dl (16-24); ARTERIAL BLOOD GAS O2 CONTENT 10.9 ML/dl (15-23); ARTERIAL BLOOD GAS O2 SAT 100.1 % (95-98); ARTERIAL BLOOD GAS PCO2 36 mm/Hg (35-45); ARTERIAL BLOOD GAS PH 7.45 (7.35-7.45); ARTERIAL BLOOD GAS TCO2 26.1 mmol.L (22-28)
[2017-12-06 06:45] LABS: BASO # 0.01 K/mm3 (0.0-2.0); BASO % 0.2 % (0.0-3.0); EOS # 0.1 (0.0-0.7); EOS % 1.4 % (1.5-5.0); GRAN # 4.17 (1.4-6.5); GRAN % 70.4 % (50.0-68.0); HEMOGLOBIN 8.1 g/dL (14.0-18.0); LYMPH # 1.3 (1.2-3.4); LYMPH % 21.1 % (22.0-35.0); MEAN CELL VOLUME 89.9 fl (80.0-105.0); MEAN CORPUSCULAR HEMOGLOBIN 28.1 pg (25.0-35.0); MEAN CORPUSCULAR HGB CONC 31.3 g/dl (31.0-37.0); MEAN PLATELET VOLUME 8.8 fl (7.0-11.0); MONO # 0.4 (0.1-0.6); MONO % 6.9 % (1.0-6.0); RBC 2.88 10^6/uL (3.5-6.1); RED CELL DISTRIBUTION WIDTH 16.9 % (11.5-14.5); WHITE BLOOD COUNT 5.9 10^3/ul (4.5-11.0)
--- NOTE | 2017-12-06 07:04 | PN ---
DATE: 12/05/2017 This is a dictation of conversation I had at length and in depth with the patient's mother Enma Haro and her grandmother was visiting me in my office. Patient was seen earlier today in the ICU at the bedside, where he continued to be remained unresponsive to painful stimuli and patient clinically appears to be brain . Patient is on several multiple antibiotics and on pressors to keep his blood pressure maintained. A long discussion with the patient's family, I told them about the sequence of events since I got involved about a week ago, when we were consulted to see the patient because of fevers and mental obtundation in addition to fever. The patient also had chills and signs and symptoms suggestive of [employer] infection. At this point in time it is unclear whether patient had encephalitis or meningitis. Patient had been on multiple antibiotics. Patient has a very complex medical history in the past, has had multiple surgeries in the back, following for spine surgery, following which he has had complications as well including spinal fluid leak, for which he had to have blood patches, put into seal the leak. Patient also had similar procedures done on the nape of the neck and overall patient has had a pretty complex course since May of 2017 through now, where he has been in the hospital more than 6 weeks in the past ____ and had received multiple weeks of IV antibiotics itself. Patient since admission to [facility], has had a contracted left lower extremity along with fevers, change in mental status, obtundation, and findings which were very little on the MRI of the brain. Patient has been treated with broad-spectrum antibiotics, even though the positive findings on the MRI to suggest any gross encephalitis, space occupying lesion or an abscess. Patient had a turn for the worse on Tuesday and he had an episode of bradycardia, became unresponsive, had to be intubated and then transferred to the unit. My impression is that the patient's prognosis is very poor and that I have discussed with the family about making the patient only DNR but to evaluate the patient for extubation for terminal care. Family is so concerned that what may have happened to the patient as to what the causes for the worsening of his condition could be and I told them at this point time, frankly speaking, I do not know what the cause could be, but multifactorial causes are possibility, but infection is still on top of my differential diagnoses. Had we worked up as to do in addition to spinal tap which was not feasible because of both technical issues and logistic issues, but even the bone marrow was not feasible, since the patient's turn taken for the worse. The cause of still needs to be determined. I advised the family they may have to plan to seek help for possibly an autopsy after the patient's demise. Family is thinking of it very strongly. They are going to discuss among themselves and I will pass the message on to the family attending as well. I have spoken in length with Dr. Greer as well after speaking to the family. Prognosis is grim and the family is cognizant of the fact and they are appreciative of all that has been done for the patient so far at our hospital. Please make a note that I have spent at least about 80 minutes talking to the family at great length, answering all questions that they had to the fullest of my ability despite the prognosis being grim. Silvia Ramos MD
[2017-12-06 07:14] LABS: ALB/GLOB RATIO 0.7 (1.1-1.8); ALBUMIN 2.4 g/dL (3.0-4.8); ALT/SGPT 28 U/L (7-56); AST/SGOT 25 U/L (17-59); BLOOD UREA NITROGEN 4 mg/dL (7-21); CALCIUM 8.8 mg/dL (8.4-10.5); GFR NON-AFRICAN AMERICAN > 60
[2017-12-06] MEDS ORDERED: Potassium Chloride 40 mEq/30 ml LIQ UD NG ONE (07:34)
[2017-12-06] MEDS ORDERED: Magnesium Sulfate 2 gm/50 ml 2 GM/50 ML BAG IVPB ONE (07:34)
--- NOTE | 2017-12-06 07:51 | CP.CCUPN ---
<Manolo Silva - Last Filed: 12/06/17 13:25> CCU Subjective - Physician Review Subjective (Free Text): Manolo Silva DO, PGY-1 ICU Progress Note for Dr. Kimmie Hernandez Patient was seen and examined at bedside this AM. No acute events overnight. He appears to have slight head movements after sternal rub but he does not grimace. Gag reflex, pupillary, and dolls eyes reflexes still absent. CCU Objective - Vital Signs / Intake & Output Vital Signs (Last 4 hours): Vital Signs Temp Pulse BP Pulse Ox 12/06/17 07:38 97.2 F L 12/06/17 07:35 97.2 F L 85 115/64 99 12/06/17 07:30 97.2 F L 85 99 12/06/17 07:15 97.2 F L 84 99 12/06/17 07:00 96/39 L 12/06/17 06:59 97.2 F L 83 99 12/06/17 06:45 97.2 F L 83 99 12/06/17 06:30 97.2 F L 82 98 12/06/17 06:15 97.2 F L 83 98 12/06/17 06:00 97.0 F L 82 119/83 100 12/06/17 05:45 96.8 F L 80 99 12/06/17 05:34 130/73 12/06/17 05:30 96.8 F L 79 99 12/06/17 05:15 96.6 F L 79 99 12/06/17 05:00 96.6 F L 81 130/73 97 12/06/17 04:45 96.4 F L 79 99 12/06/17 04:30 96.4 F L 79 99 12/06/17 04:15 96.4 F L 79 99 12/06/17 04:00 96.4 F L 81 113/69 97 Intake and Output (Last 8hrs): Intake & Output 12/05/17 12/06/17 12/06/17 22:59 06:59 14:59 Intake Total 2687 2757 60 Output Total 2200 1500 Balance 487 1257 60 Weight 212 lb 9.6 oz Intake: IV 2687 2757 60 Left Antecubital 2437 378 Right Hand 0 Right Wrist 2100 Oral 0 Output: Urine 2200 1500 Urethral (Laureano) 2200 1500 Other: # Bowel Movements 0 - Physical Exam Head: Positive for: Atraumatic, Normocephalic Pupils: Positive for: Non-Reactive Extroacular Muscles: Positive for: Other (no movement, no dolls eyes) Conjunctiva: Positive for: Normal Mouth: Positive for: Moist Mucous Membranes Neck: Negative for: JVD Respiratory/Chest: Positive for: Clear to Auscultation, Other (ventilator depen dent). Negative for: Respiratory Distress, Accessory Muscle Use, Rales, Rhonchi Cardiovascular: Positive for: Regular Rate and Rhythm. Negative for: Murmurs, Rub, Gallop Abdomen: Negative for: Distention, Mass/Organomegaly Upper Extremity: Positive for: Normal Inspection, NORMAL PULSES. Negative for: Cyanosis, Edema Lower Extremity: Positive for: Normal Inspection, NORMAL PULSES. Negative for: Edema Neurological: Positive for: Other (Non-responsive to painful stimuli or noise, pupils not reactive, no dolls eyes or gag reflexes, currently GCS=3) Skin: Positive for: Warm, Dry. Negative for: Rashes - Medications Active Medications: Active Medications Generic Name Dose Route Start Last Admin Trade Name Freq PRN Reason Stop Dose Admin Artificial Tears 0 gm 12/04/17 03:06 12/04/17 17:27 Artificial Tears Opht Oint OU 1 applic Q2 PRN Administration dry eyes Enoxaparin Sodium 40 mg 12/01/17 10:00 12/05/17 09:22 Lovenox SC 40 mg DAILY BOBBY Administration Protocol Famotidine 20 mg 12/03/17 10:00 12/05/17 09:23 Pepcid IVP 20 mg DAILY BOBBY Administration Cefepime HCl 2 gm in 100 mls @ 100 mls/hr 12/03/17 07:45 12/06/17 05:31 Maxipime 2gm IVPB 12/08/17 07:46 100 mls/hr Q8 BOBBY Administration Protocol Acyclovir 1,000 mg/ Sodium 250 mls @ 167 mls/hr 12/03/17 18:01 12/06/17 05:36 Chloride IV 167 mls/hr Q8 BOBBY Administration Protocol Vasopressin 20 units/ Sodium 101 mls @ 9.09 mls/hr 12/03/17 20:45 12/06/17 05:34 Chloride IV 0.03 u/min .Q11H7M BOBBY 9.09 mls/hr Administration Protocol 0.03 U/MIN Norepinephrine Bitartrate 8 mg 258 mls @ 7.74 mls/hr 12/04/17 20:18 12/06/17 07:40 / Sodium Chloride IV 11 mcg/min .Q24H BOBBY 21.29 mls/hr Titration Protocol 4 MCG/MIN Potassium Chloride 20 meq/ 1,010 mls @ 100 mls/hr 12/05/17 08:31 12/05/17 21:25 Sodium Chloride IV 100 mls/hr .Q10H6M BOBBY Administration Ampicillin 2 gm/ Sodium 100 mls @ 200 mls/hr 12/05/17 18:00 12/06/17 05:29 Chloride IVPB 200 mls/hr Q6 BOBBY Administration Magnesium Sulfate 2 gm in 50 mls @ 50 mls/hr 12/06/17 07:34 Magnesium Sulfate 2 Gm/50 Ml Water IVPB 12/06/17 08:33 ONCE ONE Potassium Chloride 10 meq in 100 mls @ 50 mls/hr 12/06/17 07:45 Potassium Chloride 10 Meq/100 Ml IVPB 12/06/17 11:44 Q2H BOBBY Methimazole 10 mg 11/27/17 10:00 12/05/17 09:24 Tapazole PO 10 mg DAILY BOBBY Administration Oseltamivir Phosphate 75 mg 12/03/17 10:00 12/05/17 17:06 Tamiflu Cap PO 12/08/17 07:57 75 mg BID BOBBY Administration Protocol Risperidone 0.5 mg 11/25/17 18:00 12/05/17 17:02 Risperdal Tab PO Not Given BID BOBBY Protocol Risperidone 0.5 mg 11/25/17 22:00 12/05/17 22:15 Risperdal Tab PO Not Given HS [facility] Protocol Valproate Sodium 600 mg 12/03/17 14:00 12/05/17 17:06 Depakene Oral Soln PO 600 mg TID BOBBY Administration - Patient Studies Lab Studies: Microbiology Studies 12/02/17 23:25 Blood Culture - Preliminary Blood-Venous NO GROWTH AFTER 3 DAYS 12/02/17 23:25 Blood Culture - Preliminary Blood-Venous NO GROWTH AFTER 3 DAYS Lab Studies 12/06/17 12/06/17 12/06/17 Range/Units 06:21 05:30 05:30 WBC 5.9 D (4.5-11.0) 10^3/ul RBC 2.88 L (3.5-6.1) 10^6/uL Hgb 8.1 L (14.0-18.0) g/dL Hct 25.9 L (42.0-52.0) % MCV 89.9 (80.0-105.0) fl MCH 28.1 (25.0-35.0) pg MCHC 31.3 (31.0-37.0) g/dl RDW 16.9 H (11.5-14.5) % Plt Count 180 (120.0-450.0) 10^3/uL MPV 8.8 (7.0-11.0) fl Gran % 70.4 H (50.0-68.0) % Lymph % (Auto) 21.1 L (22.0-35.0) % [place] % (Auto) 6.9 H (1.0-6.0) % Eos % (Auto) 1.4 L (1.5-5.0) % Baso % (Auto) 0.2 (0.0-3.0) % Gran # 4.17 (1.4-6.5) Lymph # (Auto) 1.3 (1.2-3.4) [place] # (Auto) 0.4 (0.1-0.6) Eos # (Auto) 0.1 (0.0-0.7) Baso # (Auto) 0.01 (0.0-2.0) K/mm3 pCO2 36 (35-45) mm/Hg pO2 143.0 H (80-100) mm/Hg HCO3 25.0 (21-28) mmol/L ABG pH 7.45 (7.35-7.45) ABG Total CO2 26.1 (22-28) mmol.L ABG O2 Saturation 100.1 H (95-98) % ABG O2 Content 10.9 L (15-23) ML/dl ABG Base Excess 1.0 (-2.0-3.0) mmol/L ABG Hemoglobin 7.7 L (11.7-17.4) g/dL ABG Carboxyhemoglobin 1.7 H (0.5-1.5) % POC ABG HHb (Measured) -0.1 L (0-5) % ABG Methemoglobin 1.2 (0.0-3.0) % ABG O2 Capacity 10.9 L (16-24) mL/dl Hgb O2 Saturation 97.2 (95.0-98.0) % FiO2 50.0 % Sodium 140 (132-148) mmol/L Potassium 3.4 L (3.6-5.0) mmol/L Chloride 107 (98-107) mmol/L Carbon Dioxide 26 (21-33) mmol/L Anion Gap 11 (10-20) BUN 4 L (7-21) mg/dL Creatinine 0.4 L (0.8-1.5) mg/dl Est GFR ( Amer) > 60 Est GFR (Non-Af Amer) > 60 Random Glucose 102 (70-110) mg/dL Calcium 8.8 (8.4-10.5) mg/dL Phosphorus 6.1 H (2.5-4.5) mg/dL Magnesium 1.5 L (1.7-2.2) mg/dL Total Bilirubin 0.6 (0.2-1.3) mg/dL AST 25 (17-59) U/L ALT 28 (7-56) U/L Alkaline Phosphatase 73 (38-126) U/L Total Protein 5.8 (5.8-8.3) g/dL Albumin 2.4 L (3.0-4.8) g/dL Globulin 3.4 gm/dL Albumin/Globulin Ratio 0.7 L (1.1-1.8) 12/05/17 Range/Units 17:15 WBC (4.5-11.0) 10^3/ul RBC (3.5-6.1) 10^6/uL Hgb (14.0-18.0) g/dL Hct (42.0-52.0) % MCV (80.0-105.0) fl MCH (25.0-35.0) pg MCHC (31.0-37.0) g/dl RDW (11.5-14.5) % Plt Count (120.0-450.0) 10^3/uL MPV (7.0-11.0) fl Gran % (50.0-68.0) % Lymph % (Auto) (22.0-35.0) % [place] % (Auto) (1.0-6.0) % Eos % (Auto) (1.5-5.0) % Baso % (Auto) (0.0-3.0) % Gran # (1.4-6.5) Lymph # (Auto) (1.2-3.4) [place] # (Auto) (0.1-0.6) Eos # (Auto) (0.0-0.7) Baso # (Auto) (0.0-2.0) K/mm3 pCO2 (35-45) mm/Hg pO2 (80-100) mm/Hg HCO3 (21-28) mmol/L ABG pH (7.35-7.45) ABG Total CO2 (22-28) mmol.L ABG O2 Saturation (95-98) % ABG O2 Content (15-23) ML/dl ABG Base Excess (-2.0-3.0) mmol/L ABG Hemoglobin (11.7-17.4) g/dL ABG Carboxyhemoglobin (0.5-1.5) % POC ABG HHb (Measured) (0-5) % ABG Methemoglobin (0.0-3.0) % ABG O2 Capacity (16-24) mL/dl Hgb O2 Saturation (95.0-98.0) % FiO2 % Sodium 143 (132-148) mmol/L Potassium 3.6 (3.6-5.0) mmol/L Chloride 111 H (98-107) mmol/L Carbon Dioxide 25 (21-33) mmol/L Anion Gap 11 (10-20) BUN 5 L (7-21) mg/dL Creatinine 0.4 L (0.8-1.5) mg/dl Est GFR ( Amer) > 60 Est GFR (Non-Af Amer) > 60 Random Glucose 105 (70-110) mg/dL Calcium 9.1 (8.4-10.5) mg/dL Phosphorus (2.5-4.5) mg/dL Magnesium 1.8 (1.7-2.2) mg/dL Total Bilirubin (0.2-1.3) mg/dL AST (17-59) U/L ALT (7-56) U/L Alkaline Phosphatase (38-126) U/L Total Protein (5.8-8.3) g/dL Albumin (3.0-4.8) g/dL Globulin gm/dL Albumin/Globulin Ratio (1.1-1.8) Laboratory Results - last 24 hr 12/05/17 12/06/17 12/06/17 17:15 05:30 05:30 WBC 5.9 D RBC 2.88 L Hgb 8.1 L Hct 25.9 L MCV 89.9 MCH 28.1 MCHC 31.3 RDW 16.9 H Plt Count 180 MPV 8.8 Gran % 70.4 H Lymph % (Auto) 21.1 L [place] % (Auto) 6.9 H Eos % (Auto) 1.4 L Baso % (Auto) 0.2 Gran # 4.17 Lymph # (Auto) 1.3 [place] # (Auto) 0.4 Eos # (Auto) 0.1 Baso # (Auto) 0.01 pCO2 pO2 HCO3 ABG pH ABG Total CO2 ABG O2 Saturation ABG O2 Content ABG Base Excess ABG Hemoglobin ABG Carboxyhemoglobin POC ABG HHb (Measured) ABG Methemoglobin ABG O2 Capacity Hgb O2 Saturation FiO2 Sodium 143 140 Potassium 3.6 3.4 L Chloride 111 H 107 Carbon Dioxide 25 26 Anion Gap 11 11 BUN 5 L 4 L Creatinine 0.4 L 0.4 L Est GFR ( Amer) > 60 > 60 Est GFR (Non-Af Amer) > 60 > 60 Random Glucose 105 102 Calcium 9.1 8.8 Phosphorus 6.1 H Magnesium 1.8 1.5 L Total Bilirubin 0.6 AST 25 ALT 28 Alkaline Phosphatase 73 Total Protein 5.8 Albumin 2.4 L Globulin 3.4 Albumin/Globulin Ratio 0.7 L 12/06/17 06:21 WBC RBC Hgb Hct MCV MCH MCHC RDW Plt Count MPV Gran % Lymph % (Auto) [place] % (Auto) Eos % (Auto) Baso % (Auto) Gran # Lymph # (Auto) [place] # (Auto) Eos # (Auto) Baso # (Auto) pCO2 36 pO2 143.0 H HCO3 25.0 ABG pH 7.45 ABG Total CO2 26.1 ABG O2 Saturation 100.1 H ABG O2 Content 10.9 L ABG Base Excess 1.0 ABG Hemoglobin 7.7 L ABG Carboxyhemoglobin 1.7 H POC ABG HHb (Measured) -0.1 L ABG Methemoglobin 1.2 ABG O2 Capacity 10.9 L Hgb O2 Saturation 97.2 FiO2 50.0 Sodium Potassium Chloride Carbon Dioxide Anion Gap BUN Creatinine Est GFR ( Amer) Est GFR (Non-Af Amer) Random Glucose Calcium Phosphorus Magnesium Total Bilirubin AST ALT Alkaline Phosphatase Total Protein Albumin Globulin Albumin/Globulin Ratio Review of Systems - Review of Systems Systems not reviewed;Unavailable: Intubated Critical Care Progress Note - Ventilator Checklist Head of Bed 30 Degrees: Yes Daily Sedation Vacation: Yes Daily Assessment of Readiness to Wean: Yes Daily Spontaneous Breathing Trial: No PUD Prophalyxis: Yes DVT Prophylaxis: Yes - Vent Settings MODE:: PRVC TIDAL VOLUME:: 500 RESP RATE:: 16 FIO2:: 50 PEEP:: 5 - Extremities/Vascular Does the Patient have a Central Venous Catheter?: No Does the Patient have a Laureano Catheter?: Yes - Prophylaxis GI Prophylaxis GI: Pepsid - Prophylaxis DVT Prophylaxis DVT: Lovenox - Nutrition Nutrition: Nutrition Category Date Time Status NPO Diet [DIET] Diets 12/02/17 Breakfast Ordered Assessment/Plan - Assessment and Plan (Free Text) Assessment: 37 yo M originally presented to ED with intermittent fever (Tmax 103), altered mental status, and hallucinations admitted for neurological evaluation. He initially refused LP. While in CT, he became bradycardic and hypotensive and was subsequently admitted to ICU. On his first night in ICU, he coded twice the first time with bradycardia with asystole and the second with PEA. He is now non-responsive with GCS of 3 likely secondary to anoxic encephalopathy. Plan: Neuro: -Off sedation with no brainstem reflexes noted -Dolls eyes, gag, and pupillary reflexes absent -Has severe anoxic brain injury after two codes -Codes were likely 2/2 underlying seizure disorder and status epilepticus -No infectious etiology identified at this time, although patient initially refused LP -Poor prognosis -After discussion with family, they would like additional testing including MRI of thoracic and lumbar spine to r/o epidural abscess -Palliative care and neurology consulted, recs appreciated Cardio: -RRR, normotensive, no signs of HD compromise -Maintain MAP>65. -Monitor for S/S, HD compromise -Still requiring levophed 11 -Cardiology following for bradycardic episode, recs appreciated Pulm: -No signs of respiratory distress. CTA B/L -ABG all within normal limits -Last CXR verified correct ET tube placement, continue to monitor -Maintain O2 saturation>95%. -Vent: PRVC TV 500, PEEP 5, O2 50%, RR 16 -Continue daily CXR, ABG -Elevated head of bed 30 degrees GI: -Keep NPO -Continue pepcid for prophylaxis /Nephro: -BUN/Cr stable -UOP of 2700 -Maintain euvolemia -Replete electrolytes as needed Endocrine: -Maintain euglycemia -Found to have low TSH on admission -Subsequently treated with methimazole -Endocrinology following, recs appreciated Heme/Onc: -H/H stable. -No signs of HD compromise. -Continue monitoring H/H -Bone marrow biopsy was recommended to search for other possible infectious etiologies -Will discuss plan with family today ID: -Afebrile, no leukocytosis since 12/02/17 -No infectious etiology of condition identified so far -Blood, urine cx all negative -LP not performed at the time as patient was refusing at the time -On empiric acyclovir, unasyn, vanc, cefepime GI/DVT PPX: Pepcid and lovenox Case and plan reviewed with my attending Dr. Kimmie Silva, IM Resident PGY-1 <Phoebe Hernandez - Last Filed: 12/06/17 17:56> CCU Objective - Vital Signs / Intake & Output Vital Signs (Last 4 hours): Vital Signs Temp Pulse BP Pulse Ox 12/06/17 17:13 83 12/06/17 16:00 118/64 12/06/17 15:59 97.9 F 87 96 12/06/17 15:50 97.7 F 12/06/17 15:45 97.7 F 88 95 12/06/17 15:30 97.7 F 87 97 12/06/17 15:15 97.7 F 86 97 12/06/17 15:00 111/57 L 12/06/17 14:59 97.7 F 86 97 12/06/17 14:45 97.7 F 84 97 12/06/17 14:30 97.7 F 83 98 12/06/17 14:15 97.7 F 80 98 12/06/17 14:00 97.7 F 81 111/59 L 96 Intake and Output (Last 8hrs): Intake & Output 12/06/17 12/06/17 12/06/17 06:59 14:59 22:59 Intake Total 2757 98 1948 Output Total 1500 1200 Balance 1257 98 748 Weight 96.434 kg Intake: IV 2757 98 1948 Left Antecubital 378 1948 Right Hand 0 Right Wrist 2100 Oral 0 Output: Urine 1500 1200 Urethral (Laureano) 1500 1200 Other: # Bowel Movements 0 - Medications Active Medications: Active Medications Generic Name Dose Route Start Last Admin Trade Name Freq PRN Reason Stop Dose Admin Artificial Tears 0 gm 12/04/17 03:06 12/04/17 17:27 Artificial Tears Opht Oint OU 1 applic Q2 PRN Administration dry eyes Enoxaparin Sodium 40 mg 12/01/17 10:00 12/06/17 09:13 Lovenox SC 40 mg DAILY BOBBY Administration Protocol Famotidine 20 mg 12/03/17 10:00 12/06/17 09:13 Pepcid IVP 20 mg DAILY BOBBY Administration Cefepime HCl 2 gm in 100 mls @ 100 mls/hr 12/03/17 07:45 12/06/17 13:14 Maxipime 2gm IVPB 12/08/17 07:46 100 mls/hr Q8 BOBBY Administration Protocol Acyclovir 1,000 mg/ Sodium 250 mls @ 167 mls/hr 12/03/17 18:01 12/06/17 14:13 Chloride IV Not Given Q8 BOBBY Protocol Vasopressin 20 units/ Sodium 101 mls @ 9.09 mls/hr 12/03/17 20:45 12/06/17 05:34 Chloride IV 0.03 u/min .Q11H7M BOBBY 9.09 mls/hr Administration Protocol 0.03 U/MIN Norepinephrine Bitartrate 8 mg 258 mls @ 7.74 mls/hr 12/04/17 20:18 12/06/17 12:19 / Sodium Chloride IV 10 mcg/min .Q24H BOBBY 19.35 mls/hr Titration Protocol 4 MCG/MIN Potassium Chloride 20 meq/ 1,010 mls @ 100 mls/hr 12/05/17 08:31 12/05/17 21:25 Sodium Chloride IV 100 mls/hr .Q10H6M BOBBY Administration Ampicillin 2 gm/ Sodium 100 mls @ 200 mls/hr 12/05/17 18:00 12/06/17 12:17 Chloride IVPB 200 mls/hr Q6 BOBBY Administration Methimazole 10 mg 11/27/17 10:00 12/06/17 09:13 Tapazole PO 10 mg DAILY BOBBY Administration Oseltamivir Phosphate 75 mg 12/03/17 10:00 12/06/17 09:13 Tamiflu Cap PO 12/08/17 07:57 75 mg BID BOBBY Administration Protocol Valproate Sodium 600 mg 12/03/17 14:00 12/06/17 13:16 Depakene Oral Soln PO 600 mg TID BOBBY Administration - Patient Studies Lab Studies: Microbiology Studies 12/02/17 23:25 Blood Culture - Preliminary Blood-Venous NO GROWTH AFTER 3 DAYS 12/02/17 23:25 Blood Culture - Preliminary Blood-Venous NO GROWTH AFTER 3 DAYS Lab Studies 12/06/17 12/06/17 12/06/17 Range/Units 06:21 05:30 05:30 WBC 5.9 D (4.5-11.0) 10^3/ul RBC 2.88 L (3.5-6.1) 10^6/uL Hgb 8.1 L (14.0-18.0) g/dL Hct 25.9 L (42.0-52.0) % MCV 89.9 (80.0-105.0) fl MCH 28.1 (25.0-35.0) pg MCHC 31.3 (31.0-37.0) g/dl RDW 16.9 H (11.5-14.5) % Plt Count 180 (120.0-450.0) 10^3/uL MPV 8.8 (7.0-11.0) fl Gran % 70.4 H (50.0-68.0) % Lymph % (Auto) 21.1 L (22.0-35.0) % [place] % (Auto) 6.9 H (1.0-6.0) % Eos % (Auto) 1.4 L (1.5-5.0) % Baso % (Auto) 0.2 (0.0-3.0) % Gran # 4.17 (1.4-6.5) Lymph # (Auto) 1.3 (1.2-3.4) [place] # (Auto) 0.4 (0.1-0.6) Eos # (Auto) 0.1 (0.0-0.7) Baso # (Auto) 0.01 (0.0-2.0) K/mm3 pCO2 36 (35-45) mm/Hg pO2 143.0 H (80-100) mm/Hg HCO3 25.0 (21-28) mmol/L ABG pH 7.45 (7.35-7.45) ABG Total CO2 26.1 (22-28) mmol.L ABG O2 Saturation 100.1 H (95-98) % ABG O2 Content 10.9 L (15-23) ML/dl ABG Base Excess 1.0 (-2.0-3.0) mmol/L ABG Hemoglobin 7.7 L (11.7-17.4) g/dL ABG Carboxyhemoglobin 1.7 H (0.5-1.5) % POC ABG HHb (Measured) -0.1 L (0-5) % ABG Methemoglobin 1.2 (0.0-3.0) % ABG O2 Capacity 10.9 L (16-24) mL/dl Hgb O2 Saturation 97.2 (95.0-98.0) % FiO2 50.0 % Sodium 140 (132-148) mmol/L Potassium 3.4 L (3.6-5.0) mmol/L Chloride 107 (98-107) mmol/L Carbon Dioxide 26 (21-33) mmol/L Anion Gap 11 (10-20) BUN 4 L (7-21) mg/dL Creatinine 0.4 L (0.8-1.5) mg/dl Est GFR ( Amer) > 60 Est GFR (Non-Af Amer) > 60 Random Glucose 102 (70-110) mg/dL Calcium 8.8 (8.4-10.5) mg/dL Phosphorus 6.1 H (2.5-4.5) mg/dL Magnesium 1.5 L (1.7-2.2) mg/dL Total Bilirubin 0.6 (0.2-1.3) mg/dL AST 25 (17-59) U/L ALT 28 (7-56) U/L Alkaline Phosphatase 73 (38-126) U/L Total Protein 5.8 (5.8-8.3) g/dL Albumin 2.4 L (3.0-4.8) g/dL Globulin 3.4 gm/dL Albumin/Globulin Ratio 0.7 L (1.1-1.8) 12/05/17 Range/Units 17:15 WBC (4.5-11.0) 10^3/ul RBC (3.5-6.1) 10^6/uL Hgb (14.0-18.0) g/dL Hct (42.0-52.0) % MCV (80.0-105.0) fl MCH (25.0-35.0) pg MCHC (31.0-37.0) g/dl RDW (11.5-14.5) % Plt Count (120.0-450.0) 10^3/uL MPV (7.0-11.0) fl Gran % (50.0-68.0) % Lymph % (Auto) (22.0-35.0) % [place] % (Auto) (1.0-6.0) % Eos % (Auto) (1.5-5.0) % Baso % (Auto) (0.0-3.0) % Gran # (1.4-6.5) Lymph # (Auto) (1.2-3.4) [place] # (Auto) (0.1-0.6) Eos # (Auto) (0.0-0.7) Baso # (Auto) (0.0-2.0) K/mm3 pCO2 (35-45) mm/Hg pO2 (80-100) mm/Hg HCO3 (21-28) mmol/L ABG pH (7.35-7.45) ABG Total CO2 (22-28) mmol.L ABG O2 Saturation (95-98) % ABG O2 Content (15-23) ML/dl ABG Base Excess (-2.0-3.0) mmol/L ABG Hemoglobin (11.7-17.4) g/dL ABG Carboxyhemoglobin (0.5-1.5) % POC ABG HHb (Measured) (0-5) % ABG Methemoglobin (0.0-3.0) % ABG O2 Capacity (16-24) mL/dl Hgb O2 Saturation (95.0-98.0) % FiO2 % Sodium 143 (132-148) mmol/L Potassium (3.6-5.0) mmol/L Chloride 111 H (98-107) mmol/L Carbon Dioxide 25 (21-33) mmol/L Anion Gap 11 (10-20) BUN 5 L (7-21) mg/dL Creatinine 0.4 L (0.8-1.5) mg/dl Est GFR ( Amer) > 60 Est GFR (Non-Af Amer) > 60 Random Glucose 105 (70-110) mg/dL Calcium 9.1 (8.4-10.5) mg/dL Phosphorus (2.5-4.5) mg/dL Magnesium 1.8 (1.7-2.2) mg/dL Total Bilirubin (0.2-1.3) mg/dL AST (17-59) U/L ALT (7-56) U/L Alkaline Phosphatase (38-126) U/L Total Protein (5.8-8.3) g/dL Albumin (3.0-4.8) g/dL Globulin gm/dL Albumin/Globulin Ratio (1.1-1.8) Laboratory Results - last 24 hr 12/05/17 12/06/17 12/06/17 17:15 05:30 05:30 WBC 5.9 D RBC 2.88 L Hgb 8.1 L Hct 25.9 L MCV 89.9 MCH 28.1 MCHC 31.3 RDW 16.9 H Plt Count 180 MPV 8.8 Gran % 70.4 H Lymph % (Auto) 21.1 L [place] % (Auto) 6.9 H Eos % (Auto) 1.4 L Baso % (Auto) 0.2 Gran # 4.17 Lymph # (Auto) 1.3 [place] # (Auto) 0.4 Eos # (Auto) 0.1 Baso # (Auto) 0.01 pCO2 pO2 HCO3 ABG pH ABG Total CO2 ABG O2 Saturation ABG O2 Content ABG Base Excess ABG Hemoglobin ABG Carboxyhemoglobin POC ABG HHb (Measured) ABG Methemoglobin ABG O2 Capacity Hgb O2 Saturation FiO2 Sodium 143 140 Potassium 3.4 L Chloride 111 H 107 Carbon Dioxide 25 26 Anion Gap 11 11 BUN 5 L 4 L Creatinine 0.4 L 0.4 L Est GFR ( Amer) > 60 > 60 Est GFR (Non-Af Amer) > 60 > 60 Random Glucose 105 102 Calcium 9.1 8.8 Phosphorus 6.1 H Magnesium 1.8 1.5 L Total Bilirubin 0.6 AST 25 ALT 28 Alkaline Phosphatase 73 Total Protein 5.8 Albumin 2.4 L Globulin 3.4 Albumin/Globulin Ratio 0.7 L 12/06/17 06:21 WBC RBC Hgb Hct MCV MCH MCHC RDW Plt Count MPV Gran % Lymph % (Auto) [place] % (Auto) Eos % (Auto) Baso % (Auto) Gran # Lymph # (Auto) [place] # (Auto) Eos # (Auto) Baso # (Auto) pCO2 36 pO2 143.0 H HCO3 25.0 ABG pH 7.45 ABG Total CO2 26.1 ABG O2 Saturation 100.1 H ABG O2 Content 10.9 L ABG Base Excess 1.0 ABG Hemoglobin 7.7 L ABG Carboxyhemoglobin 1.7 H POC ABG HHb (Measured) -0.1 L ABG Methemoglobin 1.2 ABG O2 Capacity 10.9 L Hgb O2 Saturation 97.2 FiO2 50.0 Sodium Potassium Chloride Carbon Dioxide Anion Gap BUN Creatinine Est GFR ( Amer) Est GFR (Non-Af Amer) Random Glucose Calcium Phosphorus Magnesium Total Bilirubin AST ALT Alkaline Phosphatase Total Protein Albumin Globulin Albumin/Globulin Ratio Critical Care Progress Note - Nutrition Nutrition: Nutrition Category Date Time Status NPO Diet [DIET] Diets 12/02/17 Breakfast Ordered Addendum Addendum: 12/06/17 17:53 ICU Attending Addendum Patient seen and examined. Case reviewed on round with housestaff. Agree with resident note above with the following additions/exceptions: This is an unfortunate case of a 37M with hx of cervical radiculopathy, herniated disc and cervical spondylosis who initially presented o 11/06/17 with agitation, visual hallucinations undergoing extensive workup inpatient subsequently became unrepsonive on 12/02 and went into PEA arrest. ROSC achieved but neuro status suffered. 24 hour EEG showed several subclinical electrograhic seizures throughout. MRI of brain 12/03 no enhancing masses, there was development of venous anomaly. No masses. No reports of heavy sedation or cardiac meds given prior to event. Cause of his arrest remains unclear at this time. His neuro exam off sedation consistent with severe brain injury concerning for brain . This morning we met with family again which included his parents. Dr. Levy (Neuro), [facility] (Janna Edwards) and Myself to continue the discussion regarding his prognosis and remaining prognostication process. He is scheduled today for a cerebral blood flow study to determine if he has any flow to the brain. If needed were planning to go through the brain protocol which includes apnea testing. He remains off sedation with normal ABG. The family clearly understood that if there was no flow to the brain it would imply that he is brain- however they stated that they would not be ready to take him off the ventilator/ Life support today. We conveyed empathy towards them understanding how acute the events were and how young he is. Additional imaging per neurology looking for possible causes of fevers or sudden arrest. Will f/u with neuro post-cerebral flow imaging. Family has requested autopsy once he is officially pronounced . Organ donation notified (see notes) Spiritual support and end of life discussion provided by [facility] care team Greer Edwards as well I made the ICU director (Dr Reeder) aware of the case as well DNR Phoebe Hernandez MD Med Spa Manager Crtical Care Time as well as discussion with family, other consultants and roundin mins
--- NOTE | 2017-12-06 08:18 | RAD ---
Date of service: 12/06/2017 HISTORY: intubated COMPARISON: 12/05/2017 FINDINGS: LUNGS: There is an infiltrate at the left lung base that obscures the diaphragm. The endotracheal tube and nasogastric tube are in satisfactory position PLEURA: No significant pleural effusion identified, no pneumothorax apparent. CARDIOVASCULAR: Normal. OSSEOUS STRUCTURES: No significant abnormalities. VISUALIZED UPPER ABDOMEN: Normal. OTHER FINDINGS: None. IMPRESSION: Left lower lobe infiltrate unchanged
[2017-12-06] MEDS: Valproic Acid 250 mg/5 ml UD Cup PO SCH ×3 (09:13→18:42)
[2017-12-06] MEDS: Enoxaparin 40 mg Syringe SC SCH (09:13)
[2017-12-06] MEDS: methIMAzole 5 MG TAB PO SCH (09:13)
--- NOTE | 2017-12-06 11:57 | CP.PCM.PN ---
Subjective - Date & Time of Evaluation Date of Evaluation: 12/06/17 Time of Evaluation: 11:00 - Subjective Subjective: Intubated, vasopressors. No gag, pupillary reflexes Objective - Vital Signs/Intake and Output Vital Signs (last 24 hours): Temp Pulse Resp BP Pulse Ox 97.2 F L 80 16 115/64 99 12/06/17 07:38 12/06/17 10:00 12/04/17 20:59 12/06/17 07:35 12/06/17 07:35 Intake and Output: 12/06/17 12/06/17 06:59 18:59 Intake Total 2757 80 Output Total 1500 Balance 1257 80 - Medications Medications: Current Medications Artificial Tears (Artificial Tears Opht Oint) 0 gm OU Q2 PRN PRN Reason: dry eyes Last Admin: 12/04/17 17:27 Dose: 1 applic Enoxaparin Sodium (Lovenox) 40 mg SC DAILY [facility]; Protocol Last Admin: 12/06/17 09:13 Dose: 40 mg Famotidine (Pepcid) 20 mg IVP DAILY [facility] Last Admin: 12/06/17 09:13 Dose: 20 mg Cefepime HCl (Maxipime 2gm) 2 gm in 100 mls @ 100 mls/hr IVPB Q8 [facility]; Protocol Stop: 12/08/17 07:46 Last Admin: 12/06/17 05:31 Dose: 100 mls/hr Acyclovir 1,000 mg/ Sodium (Chloride) 250 mls @ 167 mls/hr IV Q8 [facility]; Protocol Last Admin: 12/06/17 05:36 Dose: 167 mls/hr Vasopressin 20 units/ Sodium (Chloride) 101 mls @ 9.09 mls/hr IV .Q11H7M [facility]; Protocol Last Admin: 12/06/17 05:34 Dose: 0.03 u/min, 9.09 mls/hr Norepinephrine Bitartrate 8 mg (/ Sodium Chloride) 258 mls @ 7.74 mls/hr IV .Q24H [facility]; Protocol Last Admin: 12/06/17 09:14 Dose: 11 mcg/min, 21.29 mls/hr Potassium Chloride 20 meq/ (Sodium Chloride) 1,010 mls @ 100 mls/hr IV .Q10H6M [facility] Last Admin: 12/05/17 21:25 Dose: 100 mls/hr Ampicillin 2 gm/ Sodium (Chloride) 100 mls @ 200 mls/hr IVPB Q6 [facility] Last Admin: 12/06/17 05:29 Dose: 200 mls/hr Methimazole (Tapazole) 10 mg PO DAILY [facility] Last Admin: 12/06/17 09:13 Dose: 10 mg Oseltamivir Phosphate (Tamiflu Cap) 75 mg PO BID [facility]; Protocol Stop: 12/08/17 07:57 Last Admin: 12/06/17 09:13 Dose: 75 mg Risperidone (Risperdal Tab) 0.5 mg PO BID [facility]; Protocol Last Admin: 12/06/17 09:14 Dose: Not Given Risperidone (Risperdal Tab) 0.5 mg PO HS [facility]; Protocol Last Admin: 12/05/17 22:15 Dose: Not Given Valproate Sodium (Depakene Oral Soln) 600 mg PO TID [facility] Last Admin: 12/06/17 09:13 Dose: 600 mg - Labs Labs: 12/06/17 05:30 12/06/17 05:30 - Constitutional Appears: Chronically Ill - Head Exam Head Exam: NORMOCEPHALIC - Eye Exam Pupil Exam: Fixed - ENT Exam ENT Exam: Mucous Membranes Moist - Respiratory Exam Respiratory Exam: Decreased Breath Sounds - Cardiovascular Exam Cardiovascular Exam: Tachycardia - GI/Abdominal Exam GI & Abdominal Exam: Soft, Hypoactive Bowel Sounds - Neurological Exam Additional comments: unresponsive, - Skin Skin Exam: Dry, Pallor Assessment and Plan - Assessment and Plan (Free Text) Assessment: 37 year old male with history of multiple cervical and thoracic surgeries who is admitted with AMS,seizures,fever of unknown origin. Episodes of PEA X2, s/p code blue's, now intubated on vasopressors. No gag reflex, pupillary reflexes> GCS 3. Family updated of patients condition by Jorge Levy and Gwen Hernandez. Families questions answered. Family aware that brain flow study and other additional testing will be done in order confirm/rule out brain . Process of terminal extubation discussed at length. Family slowly accepting the gravity of situation. Family not ready to move forward with terminal extubation today. Family requested last Korey pérez contacted. Psychosocial support provided. Time spent with family in goals of care, end of life counseling, 60 minutes Plan: Goals of care and advance care planning. End of life counseling Spiritual support Continue current medical management Ritesh flow study, MRI of spine pending. Neuro following ID following, continue antibiotics; Merrem, Ampicillin, Cefepime and antiviral Seizures; Continue Depakote
--- NOTE | 2017-12-06 13:08 | CP.PCM.PN ---
Subjective - Date & Time of Evaluation Date of Evaluation: 12/06/17 Time of Evaluation: 09:30 - Subjective Subjective: Butch Pittman PGY2 Heme/Onc Progress Note for Dr. Ramos Patient was seen and examined at bedside in ICU. Family including mother is at bedside. There were no acute overnight events. The patient has occasional muscle twitching, but gag and pupillary reflexes are absent. The patient remains intubated, requiring vasopressors and is nonresponsive off sedation to painful stimuli. A discussion between the family, ski lift attendant, neurologist, palliative care and myself was had, and the patient's family agree that they will await the results of the brain flow study before making a decision about withdrawing care. The mother did have a lengthy discussion with Dr. Ramos yesterday. As of now, the patient is DNR and the family in discussion with the neurologist are considering a spinal MRI but have agreed that they would not want the bone marrow biopsy at this time. They are strongly requesting an autopsy once the patient expires. Objective - Vital Signs/Intake and Output Vital Signs (last 24 hours): Temp Pulse Resp BP Pulse Ox 97.3 F L 82 16 119/71 99 12/06/17 12:15 12/06/17 12:15 12/04/17 20:59 12/06/17 12:11 12/06/17 12:15 Intake and Output: 12/06/17 12/06/17 06:59 18:59 Intake Total 2757 98 Output Total 1500 Balance 1257 98 - Medications Medications: Current Medications Artificial Tears (Artificial Tears Opht Oint) 0 gm OU Q2 PRN PRN Reason: dry eyes Last Admin: 12/04/17 17:27 Dose: 1 applic Enoxaparin Sodium (Lovenox) 40 mg SC DAILY [facility]; Protocol Last Admin: 12/06/17 09:13 Dose: 40 mg Famotidine (Pepcid) 20 mg IVP DAILY [facility] Last Admin: 12/06/17 09:13 Dose: 20 mg Cefepime HCl (Maxipime 2gm) 2 gm in 100 mls @ 100 mls/hr IVPB Q8 [facility]; Protocol Stop: 12/08/17 07:46 Last Admin: 12/06/17 05:31 Dose: 100 mls/hr Acyclovir 1,000 mg/ Sodium (Chloride) 250 mls @ 167 mls/hr IV Q8 [facility]; Protocol Last Admin: 12/06/17 05:36 Dose: 167 mls/hr Vasopressin 20 units/ Sodium (Chloride) 101 mls @ 9.09 mls/hr IV .Q11H7M [facility]; Protocol Last Admin: 12/06/17 05:34 Dose: 0.03 u/min, 9.09 mls/hr Norepinephrine Bitartrate 8 mg (/ Sodium Chloride) 258 mls @ 7.74 mls/hr IV .Q24H [facility]; Protocol Last Titration: 12/06/17 12:19 Dose: 10 mcg/min, 19.35 mls/hr Potassium Chloride 20 meq/ (Sodium Chloride) 1,010 mls @ 100 mls/hr IV .Q10H6M [facility] Last Admin: 12/05/17 21:25 Dose: 100 mls/hr Ampicillin 2 gm/ Sodium (Chloride) 100 mls @ 200 mls/hr IVPB Q6 [facility] Last Admin: 12/06/17 12:17 Dose: 200 mls/hr Methimazole (Tapazole) 10 mg PO DAILY [facility] Last Admin: 12/06/17 09:13 Dose: 10 mg Oseltamivir Phosphate (Tamiflu Cap) 75 mg PO BID [facility]; Protocol Stop: 12/08/17 07:57 Last Admin: 12/06/17 09:13 Dose: 75 mg Risperidone (Risperdal Tab) 0.5 mg PO BID [facility]; Protocol Last Admin: 12/06/17 09:14 Dose: Not Given Risperidone (Risperdal Tab) 0.5 mg PO HS [facility]; Protocol Last Admin: 12/05/17 22:15 Dose: Not Given Valproate Sodium (Depakene Oral Soln) 600 mg PO TID [facility] Last Admin: 12/06/17 09:13 Dose: 600 mg - Labs Labs: 12/06/17 05:30 12/06/17 05:30 - Constitutional Appears: No Acute Distress, Other (non responsive, off sedation) - Head Exam Head Exam: NORMAL INSPECTION - Eye Exam Eye Exam: absent: PERRL - ENT Exam Additional comments: ET tube in place - Respiratory Exam Respiratory Exam: Clear to Ausculation Bilateral. absent: Rales, Rhonchi, Wheezes Additional comments: intubated, on vent - Cardiovascular Exam Cardiovascular Exam: RRR, +S1, +S2. absent: Murmur - GI/Abdominal Exam GI & Abdominal Exam: Soft. absent: Distended, Tenderness - Extremities Exam Extremities Exam: absent: Full ROM, Pedal Edema - Neurological Exam Neurological Exam: Altered Additional comments: gag, corneal and pupillary reflexes absent - Skin Skin Exam: Pallor Assessment and Plan - Assessment and Plan (Free Text) Assessment: 37 year old male with a PMH of multiple spine surgeries with post-op complications who was admitted for acute delerium, found to have episodes of spiking fevers. Infectious, metabolic, rheumatologic, neurologic and psych causes were being worked up by medical team and specialists. Unfortunately, the patient had 2 episodes of cardiac arrest due to bradycardia and PEA but despite ROSC being obtained, the patient is unresponsive, intubated and requiring vasopressors for pressure support having likely suffered anoxic injury and is currently displaying absence of brainstem reflexes. After transfer to ICU, the patient continues to be followed by neurology, cardiology/EP, ID and is on empiric antibiotics, empiric antivirals and antiseizure medications. Heme/Onc was consulted for possible bone marrow biopsy, but patient's family in discussion with Dr. Ramos no longer request it. Per discussion with family, following official read of brain flow study, the family will make a decision regarding further care. In general, family is requesting conservative management and patient is currently DNR; palliative care is also following for assistance. Plan: - Awaiting results of brain flow study - Continue to educate and comfort family - Palliative care is following regarding care moving forward - Recs per Neuro, ID and Cardio appreciated - Care per primary medical/ICU team - No intervention for bone marrow biopsy or other procedures planned at this time - Further recs per Dr. Ramos Case was reviewed and discussed with attending, Dr. Rachel Pittman PGY2
--- NOTE | 2017-12-06 14:32 | CP.PCM.PN ---
<Mercedes Dubon - Last Filed: 12/06/17 14:26> Subjective - Date & Time of Evaluation Date of Evaluation: 12/06/17 Time of Evaluation: 09:10 - Subjective Subjective: PGY-1 Mercedes Dubon D.O. medicine progress note for Dr. Greer's service: Patient was seen and examined this morning in the ICU. Patient is intubated and on a ventilator. He is unresponsive to painful stimuli. No gag reflex. His pupils are fixed and dilated. ROS unable to be obtained. Prognosis is very poor. Patient's condition was further discussed with patient's family today. Objective - Vital Signs/Intake and Output Vital Signs (last 24 hours): Temp Pulse Resp BP Pulse Ox 97.3 F L 81 16 119/71 99 12/06/17 12:15 12/06/17 14:00 12/04/17 20:59 12/06/17 12:11 12/06/17 12:15 Intake and Output: 12/06/17 12/06/17 06:59 18:59 Intake Total 2757 98 Output Total 1500 Balance 1257 98 - Medications Medications: Current Medications Artificial Tears (Artificial Tears Opht Oint) 0 gm OU Q2 PRN PRN Reason: dry eyes Last Admin: 12/04/17 17:27 Dose: 1 applic Enoxaparin Sodium (Lovenox) 40 mg SC DAILY [facility]; Protocol Last Admin: 12/06/17 09:13 Dose: 40 mg Famotidine (Pepcid) 20 mg IVP DAILY [facility] Last Admin: 12/06/17 09:13 Dose: 20 mg Cefepime HCl (Maxipime 2gm) 2 gm in 100 mls @ 100 mls/hr IVPB Q8 [facility]; Protocol Stop: 12/08/17 07:46 Last Admin: 12/06/17 13:14 Dose: 100 mls/hr Acyclovir 1,000 mg/ Sodium (Chloride) 250 mls @ 167 mls/hr IV Q8 [facility]; Protocol Last Admin: 12/06/17 14:13 Dose: Not Given Vasopressin 20 units/ Sodium (Chloride) 101 mls @ 9.09 mls/hr IV .Q11H7M [facility]; Protocol Last Admin: 12/06/17 05:34 Dose: 0.03 u/min, 9.09 mls/hr Norepinephrine Bitartrate 8 mg (/ Sodium Chloride) 258 mls @ 7.74 mls/hr IV .Q24H [facility]; Protocol Last Titration: 12/06/17 12:19 Dose: 10 mcg/min, 19.35 mls/hr Potassium Chloride 20 meq/ (Sodium Chloride) 1,010 mls @ 100 mls/hr IV .Q10H6M [facility] Last Admin: 12/05/17 21:25 Dose: 100 mls/hr Ampicillin 2 gm/ Sodium (Chloride) 100 mls @ 200 mls/hr IVPB Q6 [facility] Last Admin: 12/06/17 12:17 Dose: 200 mls/hr Methimazole (Tapazole) 10 mg PO DAILY [facility] Last Admin: 12/06/17 09:13 Dose: 10 mg Oseltamivir Phosphate (Tamiflu Cap) 75 mg PO BID [facility]; Protocol Stop: 12/08/17 07:57 Last Admin: 12/06/17 09:13 Dose: 75 mg Valproate Sodium (Depakene Oral Soln) 600 mg PO TID [facility] Last Admin: 12/06/17 13:16 Dose: 600 mg - Labs Labs: 12/06/17 05:30 12/06/17 05:30 - Constitutional Appears: Unkempt, Chronically Ill - Head Exam Head Exam: ATRAUMATIC, NORMAL INSPECTION - Eye Exam Pupil Exam: Fixed, Mydriatic - ENT Exam ENT Exam: Mucous Membranes Moist - Neck Exam Neck Exam: Normal Inspection - Respiratory Exam Additional comments: intubated on ventilator - Cardiovascular Exam Cardiovascular Exam: REGULAR RHYTHM, +S1, +S2 - GI/Abdominal Exam GI & Abdominal Exam: Soft - Rectal Exam Rectal Exam: Deferred - Extremities Exam Extremities Exam: Normal Inspection. absent: Pedal Edema - Neurological Exam Neurological Exam: absent: Alert - Skin Skin Exam: Dry, Intact, Normal Color, Warm Assessment and Plan - Assessment and Plan (Free Text) Assessment: Patient is a 37 year old male with a PMH of cervical radiculopathy w/ herniated disc, cervical spondylosis w/ myelopathy, thoracic spondylosis s/p extensive spinal surgeries, and depression vs schizophrenia spectrum under hospital management for AMS. Admitted for delirium 2/2 to polypharmacy, including chronic multiple opiates usage, which has resolved and he is now at baseline mental status. Patient has spiked fevers during hospital course possible due to hyperthyroidism; ruled out infectious causes except patient not consenting to LP. Also, patient has mod-severe muscle atrophy due to prolonged hospital stay, requiring physical therapy. Patient developed increased sinus tachycardia and was transferred to remote tele on 11/29. Patient also noted to intermittently have auditory and visual hallucinations- observed to be responding to internal stimuli. Patient seems to have a blank stare and become altered with each fever. His mental status resolves when afebrile. EEG was abnormal with subclinical seizure activity. On 12/02, watermaster was called as patient became totally unresponsive with seizure-like activity. He was transferred to ICU. Later that evening, 2 code blues were called. Patient is currently intubated on mechanical ventilation after two episodes of cardiopulmonary arrest and resuscitation. Patient's family subsequently made him DNR. Plan: Anoxic encephalopathy- s/p cardiac arrest x2 - MRI w/ and w/o contrast: unremarkable, no evidence of herpes encephalitis - Discontinued opiates, benzos, stimulants - f/u Brain flow scan - Neurology consulted (Levy)- follow-up for further plans Fevers of unknown origin, presently afebrile - Last fever was on 12/02 100.4 F, Tmax 103 - Urine, sputum, blood Cx negative on multiple occasions - LE Dopplers (11/23): no DVT - CXR (11/25): no active disease - RPR, HIV, JACI, TB panel, CMV negative - Procal <0.05 - Echo: EF 58%, no vegetations seen but limited study with poor visualization of valves - Acyclovir 1000 mg IV Q8H - Ampicillin 2 g Q6H - Cefepime 2 g IV Q8H - Vancomycin 1 g IV Q12H - Tamiflu 75 mg via NGT BID - ID consulted (Abraham)- medications as per ID - Hematology/oncology consulted (Rachel)- bone marrow Bx Seizures - Video EEG- seizure activity seen - Depakote 600 mg via NGT TID - Neurology consulted (Levy) Sinus tachycardia, presently resolved - Continue to monitor vitals - EKG: no ST changes - CTA chest: Cannot rule out segmental/subsegmental pulmonary artery embolism. No large central pulmonary embolism. - V/Q scan: no PE - Cardiology consulted (Mariela) - EP consulted (Og) Hyperthyroidism - Propranolol 20 mg PO TID- held - Methimazole 10 mg PO daily - Endocrinology consulted (Cam) HTN- currently hypotension on 2 pressors (vasopressin, norepi) - All antihypertensives held - Continue to monitor vitals Hypokalemia - Repleted - Continue to monitor Hypomagnesemia - Repleted - Continue to monitor IVF: not indicated Diet: NPO GI ppx: Pepcid 20 mg IV daily VTE ppx: Lovenox 40 mg SC daily Code status: DNR- palliative consulted Case discussed with attending, Dr. Greer. <oJmar Greer - Last Filed: 12/07/17 15:25> Objective - Vital Signs/Intake and Output Vital Signs (last 24 hours): Temp Pulse Resp BP Pulse Ox 100.2 F H 103 H 22 116/71 96 12/07/17 06:15 12/07/17 06:15 12/06/17 18:35 12/07/17 06:00 12/07/17 06:15 Intake and Output: 12/07/17 12/07/17 06:59 18:59 Intake Total 2255 Output Total 1550 Balance 705 - Medications Medications: Current Medications Artificial Tears (Artificial Tears Opht Oint) 0 gm OU Q2 PRN PRN Reason: dry eyes Last Admin: 12/04/17 17:27 Dose: 1 applic Enoxaparin Sodium (Lovenox) 40 mg SC DAILY [facility]; Protocol Last Admin: 12/07/17 09:28 Dose: 40 mg Famotidine (Pepcid) 20 mg IVP DAILY [facility] Last Admin: 12/07/17 09:33 Dose: 20 mg Cefepime HCl (Maxipime 2gm) 2 gm in 100 mls @ 100 mls/hr IVPB Q8 [facility]; Protocol Stop: 12/08/17 07:46 Last Admin: 12/07/17 05:17 Dose: 100 mls/hr Acyclovir 1,000 mg/ Sodium (Chloride) 250 mls @ 167 mls/hr IV Q8 [facility]; Protocol Last Admin: 12/07/17 14:51 Dose: 167 mls/hr Vasopressin 20 units/ Sodium (Chloride) 101 mls @ 9.09 mls/hr IV .Q11H7M [facility]; Protocol Last Admin: 12/07/17 03:05 Dose: 0.03 u/min, 9.09 mls/hr Potassium Chloride 20 meq/ (Sodium Chloride) 1,010 mls @ 100 mls/hr IV .Q10H6M [facility] Last Admin: 12/07/17 02:53 Dose: 100 mls/hr Ampicillin 2 gm/ Sodium (Chloride) 100 mls @ 200 mls/hr IVPB Q6 [facility] Last Admin: 12/07/17 05:18 Dose: 200 mls/hr NOREPINEPHRINE BIT/0.9 % NACL (Levophed 4 Mg/ 250 Ml Ns Premixed) 4 mg in 250 mls @ 16 mls/hr IV DAILY [facility] NOREPINEPHRINE BIT/0.9 % NACL (Levophed 4 Mg/ 250 Ml Ns Premixed) 4 mg in 250 mls @ 16 mls/hr IV .EXTRA DOSE ONE Stop: 12/08/17 02:22 Methimazole (Tapazole) 10 mg PO DAILY [facility] Last Admin: 12/07/17 09:45 Dose: 10 mg Oseltamivir Phosphate (Tamiflu Cap) 75 mg PO BID [facility]; Protocol Stop: 12/08/17 07:57 Last Admin: 12/07/17 09:41 Dose: 75 mg Valproate Sodium (Depakene Oral Soln) 600 mg PO TID [facility] Last Admin: 12/07/17 09:25 Dose: 600 mg - Labs Labs: 12/07/17 05:15 12/07/17 05:15 Attending/Attestation - Attestation I have personally seen and examined this patient.: Yes I have fully participated in the care of the patient.: Yes I have reviewed all pertinent clinical information, including history, physical exam and plan: Yes Notes (Text): 12/07/17 15:21 attending note; Patient seen and examined with resident in ICU. Patient is on ventilator. On pressors. no change in neurological status. Patient is a 37 year old male with past medical history that is significant for cervical radiculopathy with herniated disc, cervical spondylosis with myelopathy, thoracic spondylosis, and depression that presented to the emergency room with visual hallucinations. 1. Anoxic encephalopathy. S/P code blue x 2. Patient intubated. no pupillary response. No gag reflex. Patient with no activity on video EEG. cerebral flow scan shows complete absence of intracranial blood flow.Continue with pressors. Family aware of the scan results. MRI of thoracic and lumbar spine showed no epidural abscess. 2. Fever of unknown origin. fever is resolving. ID following, recommendations appreciated. All cultures negative. No signs of infection or cancer on any imaging. Continue with Ampicillin, Acyclovir, Cefepime, and Vancomycin. Continue with Tamiflu. 3. Tachycardia. Now resolved and patient on pressors. CTA chest per radiologist shows technically limited examination, cannot rule out segmental/subsegmental pulmonary artery embolism, no large central pulmonary embolism. Troponins is within normal limits. Cardiology consulted, recommendations appreciated. V/Q low probablity for PE. 4. Possible seizure activity. Video EEG per neurologist showed possible subclinical seizures on 12/02/17. Continue with Depakote. case discussed with neurologist in detail. 5. Leukocytosis. resolved. 6. Hyperthyroidism. Continue propranolol and methimazole. case discussed with sample clerk in detail. plan for withdrawal of care on Tuesday. Patient is DNR now.
--- NOTE | 2017-12-06 16:35 | NM ---
Date of service: 12/06/2017 PROCEDURE: Nuclear medicine cerebral blood flow study HISTORY: brain COMPARISON: MRI 12/03/2017 TECHNIQUE: 23.2 uCi of technetium 99 M pertechnetate were injected IV and flow images obtained at 2 sec intervals. Immediate and delayed images were also obtained. FINDINGS: The study shows complete absence of arterial and venous intracranial blood flow. The findings were discussed with the ICU resident Manolo Silva at 4 p.m. IMPRESSION: Complete absence of intracranial blood flow
[2017-12-06] MEDS ORDERED: Gadodiamide 287 MG/ML VIAL (20ML) IV ONE (17:45)
--- NOTE | 2017-12-06 23:37 | PN ---
DATE: 12/06/2017 SUBJECTIVE: The patient is seen early this morning in the ICU 128, bed 1. He remains intubated on a ventilator. No fevers, unresponsive. PHYSICAL EXAMINATION: VITAL SIGNS: On exam, temperature is 97, blood pressure is 107/50, respiratory rate on the vent, heart rate of 87. HEENT: Examination of HEENT, ET-tube is in place. NECK: Supple. LUNGS: Have decreased breath sounds. HEART: Normal S1, S2. ABDOMEN: Soft, nontender. LABORATORY DATA: Laboratory examination reveals a white count of 5.9, hemoglobin of 8, platelets of 180 and the chemistries reveals a BUN of 4, creatinine of 0.4. The last procalcitonin is less than 0.05. Urinalysis is noted and toxicology is noted. Immunology is reviewed. Serology is noted. Microbiology reveals cultures are negative. Imaging reveals the patient had thoracic MRI and lumbar MRI, results are not available. Cerebral blood flow nuclear scan, complete absence of intracranial blood flow and he had a CT of the entire spine with no significant findings. No evidence of abscess. No evidence of diskitis or osteomyelitis. Janna Edwards's note is reviewed. ASSESSMENT AND PLAN: A 37-year-old male with systemic inflammatory response syndrome, status post cardiac respiratory arrest x2, now with respiratory failure, intubated on a ventilator with history of seizures and I had a lengthy discussion with the patient's mother, Venecia Haro and the patient's father and family members in presence of Janna Edwards regarding the entire stay and workup. Currently on ampicillin, cefepime, acyclovir. Overall prognosis is quite poor for this patient. We will follow with you. The patient is a DNR at this point. Arias Aviles MD
[2017-12-07] MEDS: AMPicillin 2 GM in Sodium Chloride 0.9% 100 ML IVPB SCH ×5 (00:35→23:14)
[2017-12-07] MEDS: Cefepime IV 2 gm in NS 2 GM/100 ML BAG IVPB SCH ×3 (05:17→22:03)
--- NOTE | 2017-12-07 06:28 | CP.PCM.PN ---
<Mercedes Dubon - Last Filed: 12/07/17 13:20> Subjective - Date & Time of Evaluation Date of Evaluation: 12/07/17 Time of Evaluation: 09:00 - Subjective Subjective: PGY-1 Mercedes Dubon D.O. medicine progress note for Dr. Greer's service: Patient was seen and examined this morning in the ICU. Patient is intubated and on a ventilator. He is unresponsive to painful stimuli. No gag reflex. His pupils are fixed and dilated. ROS unable to be obtained. Prognosis is very poor. Palliative care nurse spoke with patients family. Objective - Vital Signs/Intake and Output Vital Signs (last 24 hours): Temp Pulse Resp BP Pulse Ox 100 F H 89 22 121/60 98 12/07/17 04:00 12/07/17 02:00 12/06/17 18:35 12/07/17 03:05 12/07/17 01:15 Intake and Output: 12/06/17 12/07/17 18:59 06:59 Intake Total 2147 101 Output Total 1200 Balance 947 101 - Medications Medications: Current Medications Artificial Tears (Artificial Tears Opht Oint) 0 gm OU Q2 PRN PRN Reason: dry eyes Last Admin: 12/04/17 17:27 Dose: 1 applic Enoxaparin Sodium (Lovenox) 40 mg SC DAILY [facility]; Protocol Last Admin: 12/06/17 09:13 Dose: 40 mg Famotidine (Pepcid) 20 mg IVP DAILY [facility] Last Admin: 12/06/17 09:13 Dose: 20 mg Cefepime HCl (Maxipime 2gm) 2 gm in 100 mls @ 100 mls/hr IVPB Q8 [facility]; Protocol Stop: 12/08/17 07:46 Last Admin: 12/07/17 05:17 Dose: 100 mls/hr Acyclovir 1,000 mg/ Sodium (Chloride) 250 mls @ 167 mls/hr IV Q8 [facility]; Protocol Last Admin: 12/07/17 05:17 Dose: 167 mls/hr Vasopressin 20 units/ Sodium (Chloride) 101 mls @ 9.09 mls/hr IV .Q11H7M [facility]; Protocol Last Admin: 12/07/17 03:05 Dose: 0.03 u/min, 9.09 mls/hr Norepinephrine Bitartrate 8 mg (/ Sodium Chloride) 258 mls @ 7.74 mls/hr IV .Q24H [facility]; Protocol Last Titration: 12/06/17 12:19 Dose: 10 mcg/min, 19.35 mls/hr Potassium Chloride 20 meq/ (Sodium Chloride) 1,010 mls @ 100 mls/hr IV .Q10H6M [facility] Last Admin: 12/07/17 02:53 Dose: 100 mls/hr Ampicillin 2 gm/ Sodium (Chloride) 100 mls @ 200 mls/hr IVPB Q6 [facility] Last Admin: 12/07/17 05:18 Dose: 200 mls/hr Methimazole (Tapazole) 10 mg PO DAILY [facility] Last Admin: 12/06/17 09:13 Dose: 10 mg Oseltamivir Phosphate (Tamiflu Cap) 75 mg PO BID [facility]; Protocol Stop: 12/08/17 07:57 Last Admin: 12/06/17 18:47 Dose: 75 mg Valproate Sodium (Depakene Oral Soln) 600 mg PO TID [facility] Last Admin: 12/06/17 18:42 Dose: 600 mg - Labs Labs: 12/06/17 05:30 12/06/17 05:30 - Constitutional Appears: No Acute Distress - Head Exam Head Exam: ATRAUMATIC, NORMAL INSPECTION - Eye Exam Pupil Exam: Fixed, Mydriatic - ENT Exam ENT Exam: Mucous Membranes Moist Additional comments: NGT in place endotracheal tube in place - Neck Exam Neck Exam: Normal Inspection - Respiratory Exam Additional comments: intubated on ventilator - Cardiovascular Exam Cardiovascular Exam: REGULAR RHYTHM, +S1, +S2 - GI/Abdominal Exam GI & Abdominal Exam: Soft, Hypoactive Bowel Sounds - Rectal Exam Rectal Exam: Deferred - Extremities Exam Extremities Exam: Normal Capillary Refill, Normal Inspection - Neurological Exam Neurological Exam: absent: Awake Additional comments: unresponsive to all stimuli- no change from previous exam - Skin Skin Exam: Dry, Intact, Pallor, Warm Assessment and Plan - Assessment and Plan (Free Text) Assessment: Patient is a 37 year old male with a PMH of cervical radiculopathy w/ herniated disc, cervical spondylosis w/ myelopathy, thoracic spondylosis s/p extensive spinal surgeries, and depression vs schizophrenia spectrum under hospital management for AMS. Admitted for delirium 2/2 to polypharmacy, including chronic multiple opiates usage, which has resolved and he is now at baseline mental status. Patient has spiked fevers during hospital course possible due to hyperthyroidism; ruled out infectious causes except patient not consenting to LP. Also, patient has mod-severe muscle atrophy due to prolonged hospital stay, requiring physical therapy. Patient developed increased sinus tachycardia and was transferred to remote tele on 11/29. Patient also noted to intermittently have auditory and visual hallucinations- observed to be responding to internal stimuli. Patient seems to have a blank stare and become altered with each fever. His mental status resolves when afebrile. EEG was abnormal with subclinical seizure activity. On 12/02, flower stripper was called as patient became totally unresponsive with seizure-like activity. He was transferred to ICU. Later that evening, 2 code blues were called. Patient is currently intubated on mechanical ventilation after two episodes of cardiopulmonary arrest and resuscitation. Patient's family subsequently made him DNR. Plan: Anoxic encephalopathy- s/p cardiac arrest x2 - MRI w/ and w/o contrast: unremarkable, no evidence of herpes encephalitis - Discontinued opiates, benzos, stimulants - Brain flow scan- no flow - Neurology consulted (Levy)- follow-up for further plans Fevers of unknown origin, presently afebrile - Last fever was on 12/02 100.4 F, Tmax 103 - Urine, sputum, blood Cx negative on multiple occasions - LE Dopplers (11/23): no DVT - CXR (11/25): no active disease - RPR, HIV, JACI, TB panel, CMV negative - Procal <0.05 - Echo: EF 58%, no vegetations seen but limited study with poor visualization of valves - CT and MRI of spine: no acute abnormalities, including infection sourc es/epidural abscesses - Acyclovir 1000 mg IV Q8H - Ampicillin 2 g Q6H - Cefepime 2 g IV Q8H - Vancomycin 1 g IV Q12H - Tamiflu 75 mg via NGT BID - ID consulted (Abraham)- medications as per ID - Hematology/oncology consulted (Rachel) Seizures - Video EEG- abnormal, seizure activity seen - Depakote 600 mg via NGT TID - Neurology consulted (Levy) Sinus tachycardia - Continue to monitor vitals - EKG: no ST changes - CTA chest: Cannot rule out segmental/subsegmental pulmonary artery embolism. No large central pulmonary embolism. - V/Q scan: no PE - Cardiology consulted (Mariela) - EP consulted (Og) Hyperthyroidism - Propranolol 20 mg PO TID- held - Methimazole 10 mg PO daily - Endocrinology consulted (Garrick) HTN- currently hypotension on 2 pressors (vasopressin, norepi) - All antihypertensives held - Continue to monitor vitals Hypokalemia - Repleted - Continue to monitor Hypomagnesemia - Repleted - Continue to monitor IVF: not indicated Diet: NPO GI ppx: Pepcid 20 mg IV daily VTE ppx: Lovenox 40 mg SC daily Code status: DNR- palliative consulted Case discussed with attending, Dr. Greer. <Jomar Greer - Last Filed: 12/07/17 15:31> Objective - Vital Signs/Intake and Output Vital Signs (last 24 hours): Temp Pulse Resp BP Pulse Ox 100.2 F H 103 H 22 116/71 96 12/07/17 06:15 12/07/17 06:15 12/06/17 18:35 12/07/17 06:00 12/07/17 06:15 Intake and Output: 12/07/17 12/07/17 06:59 18:59 Intake Total 2255 Output Total 1550 Balance 705 - Medications Medications: Current Medications Artificial Tears (Artificial Tears Opht Oint) 0 gm OU Q2 PRN PRN Reason: dry eyes Last Admin: 12/04/17 17:27 Dose: 1 applic Enoxaparin Sodium (Lovenox) 40 mg SC DAILY [facility]; Protocol Last Admin: 12/07/17 09:28 Dose: 40 mg Famotidine (Pepcid) 20 mg IVP DAILY [facility] Last Admin: 12/07/17 09:33 Dose: 20 mg Cefepime HCl (Maxipime 2gm) 2 gm in 100 mls @ 100 mls/hr IVPB Q8 [facility]; Protocol Stop: 12/08/17 07:46 Last Admin: 12/07/17 05:17 Dose: 100 mls/hr Acyclovir 1,000 mg/ Sodium (Chloride) 250 mls @ 167 mls/hr IV Q8 [facility]; Protocol Last Admin: 12/07/17 14:51 Dose: 167 mls/hr Vasopressin 20 units/ Sodium (Chloride) 101 mls @ 9.09 mls/hr IV .Q11H7M [facility]; Protocol Last Admin: 12/07/17 03:05 Dose: 0.03 u/min, 9.09 mls/hr Potassium Chloride 20 meq/ (Sodium Chloride) 1,010 mls @ 100 mls/hr IV .Q10H6M [facility] Last Admin: 12/07/17 02:53 Dose: 100 mls/hr Ampicillin 2 gm/ Sodium (Chloride) 100 mls @ 200 mls/hr IVPB Q6 [facility] Last Admin: 12/07/17 05:18 Dose: 200 mls/hr NOREPINEPHRINE BIT/0.9 % NACL (Levophed 4 Mg/ 250 Ml Ns Premixed) 4 mg in 250 mls @ 16 mls/hr IV DAILY [facility] NOREPINEPHRINE BIT/0.9 % NACL (Levophed 4 Mg/ 250 Ml Ns Premixed) 4 mg in 250 mls @ 16 mls/hr IV .EXTRA DOSE ONE Stop: 12/08/17 02:22 Methimazole (Tapazole) 10 mg PO DAILY [facility] Last Admin: 12/07/17 09:45 Dose: 10 mg Oseltamivir Phosphate (Tamiflu Cap) 75 mg PO BID [facility]; Protocol Stop: 12/08/17 07:57 Last Admin: 12/07/17 09:41 Dose: 75 mg Valproate Sodium (Depakene Oral Soln) 600 mg PO TID [facility] Last Admin: 12/07/17 09:25 Dose: 600 mg - Labs Labs: 12/07/17 05:15 12/07/17 05:15 Attending/Attestation - Attestation I have personally seen and examined this patient.: Yes I have fully participated in the care of the patient.: Yes I have reviewed all pertinent clinical information, including history, physical exam and plan: Yes Notes (Text): 12/07/17 15:27 attending note; Patient seen and examined with resident in ICU. Patient is on ventilator. On pressors. no change in neurological status. Patient is a 37 year old male with past medical history that is significant for cervical radiculopathy with herniated disc, cervical spondylosis with myelopathy, thoracic spondylosis, and depression that presented to the emergency room with visual hallucinations. 1. Anoxic encephalopathy. S/P code blue x 2. Patient intubated. no pupillary response. No gag reflex. Patient with no activity on video EEG. cerebral flow scan shows complete absence of intracranial blood flow.Continue with pressors. Family aware of the scan results. MRI of thoracic and lumbar spine showed no epidural abscess. 2. Fever of unknown origin. has low grade temperature now. ID following, recommendations appreciated. All cultures negative. Continue with Ampicillin, Acyclovir and Cefepime. Continue with Tamiflu. 3. Tachycardia. Now resolved and patient on pressors. CTA chest per radiologist shows technically limited examination, cannot rule out segmental/subsegmental pulmonary artery embolism, no large central pulmonary embolism. Troponins is within normal limits. Cardiology consulted, recommendations appreciated. V/Q low probablity for PE. 4. Possible seizure activity. Video EEG per neurologist showed possible subclinical seizures on 12/02/17. Continue with Depakote. case discussed with neurologist in detail. 5. Leukocytosis. resolved. 6. Hyperthyroidism. Continue methimazole. case discussed with legal support analyst in detail. plan for withdrawal of care on Tuesday. palliative care evaluation appreciated. Pastoral care offered. Organ donation informed. Family is requesting autopsy after withdrawal of care. we will contact Television Production Assistant's Office after withdrawal of care. Nursing staff informed. Patient is DNR now.
[2017-12-07 06:30] LABS: EOS # 0.1 (0.0-0.7); EOS % 1.3 % (1.5-5.0); GRAN # 3.69 (1.4-6.5); GRAN % 67.8 % (50.0-68.0); HEMOGLOBIN 7.9 g/dL (14.0-18.0); LYMPH # 1.2 (1.2-3.4); LYMPH % 21.5 % (22.0-35.0); MEAN CELL VOLUME 89.1 fl (80.0-105.0); MEAN CORPUSCULAR HEMOGLOBIN 28.6 pg (25.0-35.0); MEAN CORPUSCULAR HGB CONC 32.1 g/dl (31.0-37.0); MEAN PLATELET VOLUME 8.7 fl (7.0-11.0); MONO # 0.5 (0.1-0.6); MONO % 9.4 % (1.0-6.0); RBC 2.76 10^6/uL (3.5-6.1); RED CELL DISTRIBUTION WIDTH 16.5 % (11.5-14.5); WHITE BLOOD COUNT 5.4 10^3/ul (4.5-11.0)
[2017-12-07 07:15] LABS: ALB/GLOB RATIO 0.7 (1.1-1.8); ALBUMIN 2.4 g/dL (3.0-4.8); ALT/SGPT 30 U/L (7-56); AST/SGOT 34 U/L (17-59); BLOOD UREA NITROGEN 5 mg/dL (7-21); CALCIUM 8.5 mg/dL (8.4-10.5); GFR NON-AFRICAN AMERICAN > 60
--- NOTE | 2017-12-07 07:17 | CP.PCM.PN ---
<Amy Kimball - Last Filed: 12/07/17 17:15> Subjective - Date & Time of Evaluation Date of Evaluation: 12/07/17 Time of Evaluation: 07:17 - Subjective Subjective: Amy Kimball, PGY2, Neurology Progress Note for Dr Calderon: Patient seen and examined at bedside. No acute events overnight. Patient remains on levophed, vasopressin, remains intubated on PRVC setting. No fevers. ROS limited due to patient's condition. Objective - Vital Signs/Intake and Output Vital Signs (last 24 hours): Temp Pulse Resp BP Pulse Ox 100.2 F H 103 H 22 116/71 96 12/07/17 06:15 12/07/17 06:15 12/06/17 18:35 12/07/17 06:00 12/07/17 06:15 Intake and Output: 12/07/17 12/07/17 06:59 18:59 Intake Total 2255 Output Total 1550 Balance 705 - Medications Medications: Current Medications Artificial Tears (Artificial Tears Opht Oint) 0 gm OU Q2 PRN PRN Reason: dry eyes Last Admin: 12/04/17 17:27 Dose: 1 applic Enoxaparin Sodium (Lovenox) 40 mg SC DAILY [facility]; Protocol Last Admin: 12/06/17 09:13 Dose: 40 mg Famotidine (Pepcid) 20 mg IVP DAILY [facility] Last Admin: 12/06/17 09:13 Dose: 20 mg Cefepime HCl (Maxipime 2gm) 2 gm in 100 mls @ 100 mls/hr IVPB Q8 [facility]; Protocol Stop: 12/08/17 07:46 Last Admin: 12/07/17 05:17 Dose: 100 mls/hr Acyclovir 1,000 mg/ Sodium (Chloride) 250 mls @ 167 mls/hr IV Q8 [facility]; Protocol Last Admin: 12/07/17 05:17 Dose: 167 mls/hr Vasopressin 20 units/ Sodium (Chloride) 101 mls @ 9.09 mls/hr IV .Q11H7M [facility]; Protocol Last Admin: 12/07/17 03:05 Dose: 0.03 u/min, 9.09 mls/hr Norepinephrine Bitartrate 8 mg (/ Sodium Chloride) 258 mls @ 7.74 mls/hr IV .Q24H [facility]; Protocol Last Titration: 12/06/17 12:19 Dose: 10 mcg/min, 19.35 mls/hr Potassium Chloride 20 meq/ (Sodium Chloride) 1,010 mls @ 100 mls/hr IV .Q10H6M [facility] Last Admin: 12/07/17 02:53 Dose: 100 mls/hr Ampicillin 2 gm/ Sodium (Chloride) 100 mls @ 200 mls/hr IVPB Q6 [facility] Last Admin: 12/07/17 05:18 Dose: 200 mls/hr Methimazole (Tapazole) 10 mg PO DAILY [facility] Last Admin: 12/06/17 09:13 Dose: 10 mg Oseltamivir Phosphate (Tamiflu Cap) 75 mg PO BID [facility]; Protocol Stop: 12/08/17 07:57 Last Admin: 12/06/17 18:47 Dose: 75 mg Valproate Sodium (Depakene Oral Soln) 600 mg PO TID [facility] Last Admin: 12/06/17 18:42 Dose: 600 mg - Labs Labs: 12/07/17 05:15 12/07/17 05:15 - Additional Findings Additional findings: - Constitutional Appears: Toxic - Head Exam Head Exam: ATRAUMATIC, NORMOCEPHALIC - Eye Exam Eye Exam: absent: EOMI, PERRL Pupil Exam: Fixed - ENT Exam ENT Exam: Mucous Membranes Dry - Respiratory Exam Respiratory Exam: Clear to Ausculation Bilateral. absent: Rales, Rhonchi, Wheezes - Cardiovascular Exam Cardiovascular Exam: RRR, +S1, +S2. absent: Murmur - GI/Abdominal Exam GI & Abdominal Exam: Soft, Normal Bowel Sounds - Extremities Exam Extremities Exam: absent: Calf Tenderness, Pedal Edema - Neurological Exam Additional comments: Patient is off sedation with no brainstem reflexes noted. no dolls eyes, no corneals, no gag. no spontaneous movement no localizing to sternal rub - Skin Skin Exam: Pallor Assessment and Plan - Assessment and Plan (Free Text) Assessment: 37 year old male with a PMH of cervical radiculopathy w/ herniated disc, cervical spondylosis w/ myelopathy, thoracic spondylosis and depression, initially presented to [facility] [place] for acute delirium, found to have episodes of spiking fevers. Patient then had 2 epsiodes of code blue, found to be in severe anoxic encephalopathy. Cerebral brain flow study shows no perfusion. Apnea test showed no respiratory activity: - extremely poor prognosis - EEG read shows no normal rhythms - On cefepime, ampicillin, acyclovir, tamiflu - On Valproic acid - On Vaso and levo for BP support - DNR currently - Palliative Jessy Paramonte on case, deepika recs. Case discussed with Dr Calderon. <Van Calderon - Last Filed: 12/08/17 18:32> Objective - Vital Signs/Intake and Output Vital Signs (last 24 hours): Temp Pulse Resp BP Pulse Ox 98.4 F 83 16 111/66 98 12/08/17 06:30 12/08/17 06:30 12/08/17 02:59 12/08/17 06:00 12/08/17 06:30 Intake and Output: 12/08/17 12/08/17 06:59 18:59 Intake Total 2580 Output Total 900 Balance 1680 - Medications Medications: Current Medications Artificial Tears (Artificial Tears Opht Oint) 0 gm OU Q2 PRN PRN Reason: dry eyes Last Admin: 12/04/17 17:27 Dose: 1 applic Vasopressin 20 units/ Sodium (Chloride) 101 mls @ 9.09 mls/hr IV .Q11H7M [facility]; Protocol Last Admin: 12/08/17 02:41 Dose: 0.03 u/min, 9.09 mls/hr Potassium Chloride 20 meq/ (Sodium Chloride) 1,010 mls @ 100 mls/hr IV .Q10H6M [facility] Last Admin: 12/08/17 10:47 Dose: 100 mls/hr NOREPINEPHRINE BIT/0.9 % NACL (Levophed 4 Mg/ 250 Ml Ns Premixed) 4 mg in 250 mls @ 16 mls/hr IV DAILY [facility] Last Admin: 12/07/17 10:17 Dose: 16 mls/hr Valproate Sodium (Depakene Oral Soln) 600 mg PO TID [facility] Last Admin: 12/08/17 15:17 Dose: 600 mg - Labs Labs: 12/08/17 05:30 12/08/17 05:30 Assessment and Plan - Assessment and Plan (Free Text) Assessment: All medical record entries made by the Resident were at my direction and personally dictated by me. I have reviewed the chart and agree that the record accurately reflects my personal performance of the history, physical exam, medical decision making, and the department course for this patient. I have also personally directed, reviewed, and agree with the discharge instructions and disposition. MR santy has no normal cerebral activity per eeg, and has failed apnea test, as well as perfusion study. on exam: no brainstem reflexes noted. Family to determine time of terminal weaning. Dr. calderon
[2017-12-07] MEDS ORDERED: Potassium Chloride 40 mEq/30 ml LIQ UD NG STA (07:26)
[2017-12-07] MEDS ORDERED: Magnesium Sulfate 2 gm/50 ml 2 GM/50 ML BAG IVPB ONE (07:26)
--- NOTE | 2017-12-07 09:12 | RAD ---
Date of service: 12/07/2017 HISTORY: intubated COMPARISON: Multiple serial examinations preceding the most recent study: December 06, 2017 study performed 06:02. FINDINGS: LUNGS: Left lower lobe infiltrate. PLEURA: Likely left pleural effusion inseparable from consolidative changes left lower lobe. CARDIOVASCULAR: No radiographic findings to suggest acute or significant cardiovascular disease. OSSEOUS STRUCTURES: No significant abnormalities. VISUALIZED UPPER ABDOMEN: Normal. OTHER FINDINGS: Stable position of support apparatus including nasogastric tube and endotracheal tube. IMPRESSION: Stable findings left natasha thorax including left lower lobe infiltrate. Stable position of support apparatus.
[2017-12-07] MEDS: Valproic Acid 250 mg/5 ml UD Cup PO SCH ×3 (09:25→18:08)
[2017-12-07] MEDS: Enoxaparin 40 mg Syringe SC SCH (09:28)
--- NOTE | 2017-12-07 09:31 | MRI ---
Date of service: 12/06/2017 PROCEDURE: MR LUMBAR SPINE WITH AND WITHOUT CONTRAST HISTORY: r/o epidural abscess COMPARISON: None available. TECHNIQUE: Multiecho multiplanar sequences were performed through the lumbar spine with and without the use of intravenous contrast. FINDINGS: Normal lumbar lordosis. Vertebral body heights are preserved. Marrow signal unremarkable. Conus medullaris unremarkable at the level of T12 Paraspinal soft tissues are unremarkable. No abnormal enhancement. T12-L1: No disc herniation, spinal canal stenosis or neural foraminal narrowing. L1-2: No disc herniation, spinal canal stenosis or neural foraminal narrowing. L2-3: Small central disc herniation L3-4: Large broad-based central disc herniation L4-5: Broad-based central protrusion L5-S1: No disc herniation, spinal canal stenosis or neural foraminal narrowing. OTHER FINDINGS: The report concurs with the preliminary [facility] report IMPRESSION: No evidence of epidural abscess
[2017-12-07] MEDS: methIMAzole 5 MG TAB PO SCH (09:45)
--- NOTE | 2017-12-07 09:45 | MRI ---
Date of service: 12/06/2017 PROCEDURE: MR THORACIC SPINE WITH AND WITHOUT CONTRAST HISTORY: r/o epidural abscess COMPARISON: None available. TECHNIQUE: Multiecho multiplanar sequences were performed through the thoracic spine with and without the use of intravenous contrast. 20 cc of Omniscan FINDINGS: ALIGNMENT: Normal thoracic spinal alignment. Normal thoracic kyphosis. VERTEBRA: Vertebral body height are preserved. MARROW: Marrow signal unremarkable. PARASPINAL SOFT TISSUES: No evidence of epidural abscess CORD: Unremarkable thoracic cord. No volume loss, signal abnormality or syrinx. DISCS: Multilevel central disc herniations are seen throughout the cervical and thoracic spine. There is narrowing of the spinal canal at C4-5 with some flattening of the cord. This was only evaluated in the sagittal plane. Central protrusions are also seen at C6-7 and C7-T1. The largest disc protrusion is seen at T9-10. There is flattening of the cord and displacement of the cord to the right. There been previous laminectomies from T1 through T4 ENHANCEMENT: No abnormal enhancement. OTHER FINDINGS: None. IMPRESSION: Multilevel disc degeneration with central disc herniations throughout the cervical and thoracic spine. No evidence of epidural abscess
--- NOTE | 2017-12-07 10:43 | CP.CCUPN ---
<Manolo Silva - Last Filed: 12/07/17 10:49> CCU Subjective - Physician Review Subjective (Free Text): Manolo Silva DO, PGY-1 ICU Progress Note for Dr. Kimmie Hernandez Patient was seen and examined at bedside this AM. No acute events overnight. He is non responsive to sternal rub and trapezius pinch. Gag reflex, pupillary, and dolls eyes reflexes still absent. CCU Objective - Vital Signs / Intake & Output Intake and Output (Last 8hrs): Intake & Output 12/06/17 12/07/17 12/07/17 22:59 06:59 14:59 Intake Total 4203 101 Output Total 2750 Balance 1453 101 Weight 221 lb 1.6 oz Intake: IV 4203 101 Left Antecubital 2202 Right Hand 0 Right Wrist 1900 Oral 0 Output: Urine 2750 Urethral (Laureano) 2750 Other: # Bowel Movements 0 - Physical Exam Head: Positive for: Atraumatic, Normocephalic Pupils: Positive for: Non-Reactive Extroacular Muscles: Positive for: Other (no movement, no dolls eyes) Conjunctiva: Positive for: Normal Mouth: Positive for: Moist Mucous Membranes Neck: Negative for: JVD Respiratory/Chest: Positive for: Clear to Auscultation, Other (ventilator dependent). Negative for: Respiratory Distress, Accessory Muscle Use, Rales, Rhonchi Cardiovascular: Positive for: Regular Rate and Rhythm. Negative for: Murmurs, Rub, Gallop Abdomen: Negative for: Distention, Mass/Organomegaly Upper Extremity: Positive for: Normal Inspection, NORMAL PULSES. Negative for: Cyanosis, Edema Lower Extremity: Positive for: Normal Inspection, NORMAL PULSES. Negative for: Edema Neurological: Positive for: Other (Non-responsive to painful stimuli or noise, pupils not reactive, no dolls eyes or gag reflexes, currently GCS=3) Skin: Positive for: Warm, Dry. Negative for: Rashes Psychiatric: Positive for: Alert, Oriented x 3, Normal Insight, Normal Conc entration - Medications Active Medications: Active Medications Generic Name Dose Route Start Last Admin Trade Name Freq PRN Reason Stop Dose Admin Artificial Tears 0 gm 12/04/17 03:06 12/04/17 17:27 Artificial Tears Opht Oint OU 1 applic Q2 PRN Administration dry eyes Enoxaparin Sodium 40 mg 12/01/17 10:00 12/07/17 09:28 Lovenox SC 40 mg DAILY BOBBY Administration Protocol Famotidine 20 mg 12/03/17 10:00 12/07/17 09:33 Pepcid IVP 20 mg DAILY BOBBY Administration Cefepime HCl 2 gm in 100 mls @ 100 mls/hr 12/03/17 07:45 12/07/17 05:17 Maxipime 2gm IVPB 12/08/17 07:46 100 mls/hr Q8 BOBBY Administration Protocol Acyclovir 1,000 mg/ Sodium 250 mls @ 167 mls/hr 12/03/17 18:01 12/07/17 05:17 Chloride IV 167 mls/hr Q8 BOBBY Administration Protocol Vasopressin 20 units/ Sodium 101 mls @ 9.09 mls/hr 12/03/17 20:45 12/07/17 03:05 Chloride IV 0.03 u/min .Q11H7M BOBBY 9.09 mls/hr Administration Protocol 0.03 U/MIN Norepinephrine Bitartrate 8 mg 258 mls @ 7.74 mls/hr 12/04/17 20:18 12/06/17 12:19 / Sodium Chloride IV 10 mcg/min .Q24H BOBBY 19.35 mls/hr Titration Protocol 4 MCG/MIN Potassium Chloride 20 meq/ 1,010 mls @ 100 mls/hr 12/05/17 08:31 12/07/17 02:53 Sodium Chloride IV 100 mls/hr .Q10H6M BOBBY Administration Ampicillin 2 gm/ Sodium 100 mls @ 200 mls/hr 12/05/17 18:00 12/07/17 05:18 Chloride IVPB 200 mls/hr Q6 BOBBY Administration Methimazole 10 mg 11/27/17 10:00 12/07/17 09:45 Tapazole PO 10 mg DAILY BOBBY Administration Oseltamivir Phosphate 75 mg 12/03/17 10:00 12/07/17 09:41 Tamiflu Cap PO 12/08/17 07:57 75 mg BID BOBBY Administration Protocol Valproate Sodium 600 mg 12/03/17 14:00 12/07/17 09:25 Depakene Oral Soln PO 600 mg TID BOBBY Administration - Patient Studies Lab Studies: Microbiology Studies 12/02/17 23:25 Blood Culture - Preliminary Blood-Venous NO GROWTH AFTER 4 DAYS 12/02/17 23:25 Blood Culture - Preliminary Blood-Venous NO GROWTH AFTER 4 DAYS Lab Studies 12/07/17 12/07/17 12/06/17 Range/Units 05:15 05:15 21:53 WBC 5.4 (4.5-11.0) 10^3/ul RBC 2.76 L (3.5-6.1) 10^6/uL Hgb 7.9 L (14.0-18.0) g/dL Hct 24.6 L (42.0-52.0) % MCV 89.1 (80.0-105.0) fl MCH 28.6 (25.0-35.0) pg MCHC 32.1 (31.0-37.0) g/dl RDW 16.5 H (11.5-14.5) % Plt Count 171 (120.0-450.0) 10^3/uL MPV 8.7 (7.0-11.0) fl Gran % 67.8 (50.0-68.0) % Lymph % (Auto) 21.5 L (22.0-35.0) % Mcclain % (Auto) 9.4 H (1.0-6.0) % Eos % (Auto) 1.3 L (1.5-5.0) % Baso % (Auto) 0.0 (0.0-3.0) % Gran # 3.69 (1.4-6.5) Lymph # (Auto) 1.2 (1.2-3.4) Mcclain # (Auto) 0.5 (0.1-0.6) Eos # (Auto) 0.1 (0.0-0.7) Baso # (Auto) 0.00 (0.0-2.0) K/mm3 Sodium 137 (132-148) mmol/L Potassium 3.5 L (3.6-5.0) mmol/L Chloride 102 (98-107) mmol/L Carbon Dioxide 27 (21-33) mmol/L Anion Gap 11 (10-20) BUN 5 L (7-21) mg/dL Creatinine 0.5 L (0.8-1.5) mg/dl Est GFR ( Amer) > 60 Est GFR (Non-Af Amer) > 60 POC Glucose (mg/dL) 94 (65-110) mg/dL Random Glucose 83 (70-110) mg/dL Calcium 8.5 (8.4-10.5) mg/dL Phosphorus 5.9 H (2.5-4.5) mg/dL Magnesium 1.5 L (1.7-2.2) mg/dL Total Bilirubin 0.7 (0.2-1.3) mg/dL AST 34 (17-59) U/L ALT 30 (7-56) U/L Alkaline Phosphatase 84 (38-126) U/L Total Protein 5.7 L (5.8-8.3) g/dL Albumin 2.4 L (3.0-4.8) g/dL Globulin 3.3 gm/dL Albumin/Globulin Ratio 0.7 L (1.1-1.8) Cryptococcus Ag Screen (Not Detected) 12/05/17 Range/Units 07:45 WBC (4.5-11.0) 10^3/ul RBC (3.5-6.1) 10^6/uL Hgb (14.0-18.0) g/dL Hct (42.0-52.0) % MCV (80.0-105.0) fl MCH (25.0-35.0) pg MCHC (31.0-37.0) g/dl RDW (11.5-14.5) % Plt Count (120.0-450.0) 10^3/uL MPV (7.0-11.0) fl Gran % (50.0-68.0) % Lymph % (Auto) (22.0-35.0) % Mcclain % (Auto) (1.0-6.0) % Eos % (Auto) (1.5-5.0) % Baso % (Auto) (0.0-3.0) % Gran # (1.4-6.5) Lymph # (Auto) (1.2-3.4) Mcclain # (Auto) (0.1-0.6) Eos # (Auto) (0.0-0.7) Baso # (Auto) (0.0-2.0) K/mm3 Sodium (132-148) mmol/L Potassium (3.6-5.0) mmol/L Chloride (98-107) mmol/L Carbon Dioxide (21-33) mmol/L Anion Gap (10-20) BUN (7-21) mg/dL Creatinine (0.8-1.5) mg/dl Est GFR ( Amer) Est GFR (Non-Af Amer) POC Glucose (mg/dL) (65-110) mg/dL Random Glucose (70-110) mg/dL Calcium (8.4-10.5) mg/dL Phosphorus (2.5-4.5) mg/dL Magnesium (1.7-2.2) mg/dL Total Bilirubin (0.2-1.3) mg/dL AST (17-59) U/L ALT (7-56) U/L Alkaline Phosphatase (38-126) U/L Total Protein (5.8-8.3) g/dL Albumin (3.0-4.8) g/dL Globulin gm/dL Albumin/Globulin Ratio (1.1-1.8) Cryptococcus Ag Screen Not detected (Not Detected) Laboratory Results - last 24 hr 12/05/17 12/06/17 12/07/17 07:45 21:53 05:15 WBC 5.4 RBC 2.76 L Hgb 7.9 L Hct 24.6 L MCV 89.1 MCH 28.6 MCHC 32.1 RDW 16.5 H Plt Count 171 MPV 8.7 Gran % 67.8 Lymph % (Auto) 21.5 L Mcclain % (Auto) 9.4 H Eos % (Auto) 1.3 L Baso % (Auto) 0.0 Gran # 3.69 Lymph # (Auto) 1.2 Mcclain # (Auto) 0.5 Eos # (Auto) 0.1 Baso # (Auto) 0.00 Sodium Potassium Chloride Carbon Dioxide Anion Gap BUN Creatinine Est GFR ( Amer) Est GFR (Non-Af Amer) POC Glucose (mg/dL) 94 Random Glucose Calcium Phosphorus Magnesium Total Bilirubin AST ALT Alkaline Phosphatase Total Protein Albumin Globulin Albumin/Globulin Ratio Cryptococcus Ag Screen Not detected 12/07/17 05:15 WBC RBC Hgb Hct MCV MCH MCHC RDW Plt Count MPV Gran % Lymph % (Auto) Mcclain % (Auto) Eos % (Auto) Baso % (Auto) Gran # Lymph # (Auto) Mcclain # (Auto) Eos # (Auto) Baso # (Auto) Sodium 137 Potassium 3.5 L Chloride 102 Carbon Dioxide 27 Anion Gap 11 BUN 5 L Creatinine 0.5 L Est GFR ( Amer) > 60 Est GFR (Non-Af Amer) > 60 POC Glucose (mg/dL) Random Glucose 83 Calcium 8.5 Phosphorus 5.9 H Magnesium 1.5 L Total Bilirubin 0.7 AST 34 ALT 30 Alkaline Phosphatase 84 Total Protein 5.7 L Albumin 2.4 L Globulin 3.3 Albumin/Globulin Ratio 0.7 L Cryptococcus Ag Screen Review of Systems - Review of Systems Systems not reviewed;Unavailable: Intubated Critical Care Progress Note - Ventilator Checklist Head of Bed 30 Degrees: Yes Daily Sedation Vacation: Yes Daily Assessment of Readiness to Wean: Yes Daily Spontaneous Breathing Trial: No PUD Prophalyxis: Yes DVT Prophylaxis: Yes - Vent Settings MODE:: PRVC TIDAL VOLUME:: 500 RESP RATE:: 16 FIO2:: 50 PEEP:: 5 - Extremities/Vascular Does the Patient have a Central Venous Catheter?: No Does the Patient have a Laureano Catheter?: Yes - Prophylaxis GI Prophylaxis GI: Pepsid - Prophylaxis DVT Prophylaxis DVT: Lovenox - Nutrition Nutrition: Nutrition Category Date Time Status NPO Diet [DIET] Diets 12/02/17 Breakfast Ordered Assessment/Plan - Assessment and Plan (Free Text) Assessment: 37 yo M originally presented to ED with intermittent fever (Tmax 103), altered mental status, and hallucinations admitted for neurological evaluation. He initially refused LP. While in CT, he became bradycardic and hypotensive and was subsequently admitted to ICU. On his first night in ICU, he coded twice. ROSC was achieved. EEG completed at the time showed extensive seizure activity. He was subsequently given 2 mg ativan, 1 g keppra, and 1 g valproic acid with resolution of seizure. Cerebral blood flow completed yesterday showed lack of flow. Plan: Neuro: -MRI thoracic and lumbar spine completed yesterday -No evidence of epidural abscess or other concerning findings -Patient with severe anoxic brain injury following 2 codes -Pupillary, gag, and dolls eyes reflexes still absent today and non-responsive to sternal rub and trapezius pinch -Palliative care and neurology consulted, recs appreciated Cardio: -RRR, normotensive, no signs of HD compromise -Maintain MAP>65 -Still requiring levophed 11 and vasopressin 9 -Cardiology following, recs appreciated Pulm: -No signs of respiratory distress. CTA B/L -Maintain O2 saturation>95%. -Vent: PRVC TV 500, PEEP 5, O2 50%, RR 16 -Elevated head of bed 30 degrees -Stop daily ABG, CXR, stop all daily labs GI: -Keep NPO -Continue pepcid for prophylaxis /Nephro: -BUN/Cr stable -UOP of 2700 -Maintain euvolemia -Replete electrolytes as needed Endocrine: -Maintain euglycemia -Found to have low TSH on admission -Subsequently treated with methimazole -Endocrinology following, recs appreciated Heme/Onc: -H/H stable -Stop daily CBC -Bone marrow biopsy no longer being pursued ID: -Afebrile, no leukocytosis since 12/02/17 -No infectious etiology of condition identified so far -Blood, urine cx all negative -LP not performed at the time as patient was refusing at the time -On empiric acyclovir, unasyn, vanc, cefepime GI/DVT PPX: Pepcid and lovenox Case and plan reviewed with my attending Dr. Kimmie Silva, DO IM Resident PGY-1 <Phoebe Hernandez - Last Filed: 12/07/17 11:08> CCU Objective - Vital Signs / Intake & Output Intake and Output (Last 8hrs): Intake & Output 12/06/17 12/07/17 12/07/17 22:59 06:59 14:59 Intake Total 4203 101 Output Total 2750 Balance 1453 101 Weight 100.289 kg Intake: IV 4203 101 Left Antecubital 2202 Right Hand 0 Right Wrist 1900 Oral 0 Output: Urine 2750 Urethral (Laureano) 2750 Other: # Bowel Movements 0 - Medications Active Medications: Active Medications Generic Name Dose Route Start Last Admin Trade Name Freq PRN Reason Stop Dose Admin Artificial Tears 0 gm 12/04/17 03:06 12/04/17 17:27 Artificial Tears Opht Oint OU 1 applic Q2 PRN Administration dry eyes Enoxaparin Sodium 40 mg 12/01/17 10:00 12/07/17 09:28 Lovenox SC 40 mg DAILY BOBBY Administration Protocol Famotidine 20 mg 12/03/17 10:00 12/07/17 09:33 Pepcid IVP 20 mg DAILY BOBBY Administration Cefepime HCl 2 gm in 100 mls @ 100 mls/hr 12/03/17 07:45 12/07/17 05:17 Maxipime 2gm IVPB 12/08/17 07:46 100 mls/hr Q8 BOBBY Administration Protocol Acyclovir 1,000 mg/ Sodium 250 mls @ 167 mls/hr 12/03/17 18:01 12/07/17 05:17 Chloride IV 167 mls/hr Q8 BOBBY Administration Protocol Vasopressin 20 units/ Sodium 101 mls @ 9.09 mls/hr 12/03/17 20:45 12/07/17 03:05 Chloride IV 0.03 u/min .Q11H7M BOBBY 9.09 mls/hr Administration Protocol 0.03 U/MIN Potassium Chloride 20 meq/ 1,010 mls @ 100 mls/hr 12/05/17 08:31 12/07/17 02:53 Sodium Chloride IV 100 mls/hr .Q10H6M BOBBY Administration Ampicillin 2 gm/ Sodium 100 mls @ 200 mls/hr 12/05/17 18:00 12/07/17 05:18 Chloride IVPB 200 mls/hr Q6 BOBBY Administration NOREPINEPHRINE BIT/0.9 % NACL 4 mg in 250 mls @ 16 mls/hr 12/08/17 10:00 Levophed 4 Mg/ 250 Ml Ns Premixed IV DAILY BOBBY NOREPINEPHRINE BIT/0.9 % NACL 4 mg in 250 mls @ 16 mls/hr 12/07/17 10:45 Levophed 4 Mg/ 250 Ml Ns Premixed IV 12/08/17 02:22 .EXTRA DOSE ONE Methimazole 10 mg 11/27/17 10:00 12/07/17 09:45 Tapazole PO 10 mg DAILY BOBBY Administration Oseltamivir Phosphate 75 mg 12/03/17 10:00 12/07/17 09:41 Tamiflu Cap PO 12/08/17 07:57 75 mg BID BOBBY Administration Protocol Valproate Sodium 600 mg 12/03/17 14:00 12/07/17 09:25 Depakene Oral Soln PO 600 mg TID BOBBY Administration - Patient Studies Lab Studies: Microbiology Studies 12/02/17 23:25 Blood Culture - Preliminary Blood-Venous NO GROWTH AFTER 4 DAYS 12/02/17 23:25 Blood Culture - Preliminary Blood-Venous NO GROWTH AFTER 4 DAYS Lab Studies 10/05/2212/07/17 12/06/17 Range/Units 05:15 05:15 21:53 WBC 5.4 (4.5-11.0) 10^3/ul RBC 2.76 L (3.5-6.1) 10^6/uL Hgb 7.9 L (14.0-18.0) g/dL Hct 24.6 L (42.0-52.0) % MCV 89.1 (80.0-105.0) fl MCH 28.6 (25.0-35.0) pg MCHC 32.1 (31.0-37.0) g/dl RDW 16.5 H (11.5-14.5) % Plt Count 171 (120.0-450.0) 10^3/uL MPV 8.7 (7.0-11.0) fl Gran % 67.8 (50.0-68.0) % Lymph % (Auto) 21.5 L (22.0-35.0) % Mcclain % (Auto) 9.4 H (1.0-6.0) % Eos % (Auto) 1.3 L (1.5-5.0) % Baso % (Auto) 0.0 (0.0-3.0) % Gran # 3.69 (1.4-6.5) Lymph # (Auto) 1.2 (1.2-3.4) Mcclain # (Auto) 0.5 (0.1-0.6) Eos # (Auto) 0.1 (0.0-0.7) Baso # (Auto) 0.00 (0.0-2.0) K/mm3 Sodium 137 (132-148) mmol/L Potassium 3.5 L (3.6-5.0) mmol/L Chloride 102 (98-107) mmol/L Carbon Dioxide 27 (21-33) mmol/L Anion Gap 11 (10-20) BUN 5 L (7-21) mg/dL Creatinine 0.5 L (0.8-1.5) mg/dl Est GFR ( Amer) > 60 Est GFR (Non-Af Amer) > 60 POC Glucose (mg/dL) 94 (65-110) mg/dL Random Glucose 83 (70-110) mg/dL Calcium 8.5 (8.4-10.5) mg/dL Phosphorus 5.9 H (2.5-4.5) mg/dL Magnesium 1.5 L (1.7-2.2) mg/dL Total Bilirubin 0.7 (0.2-1.3) mg/dL AST 34 (17-59) U/L ALT 30 (7-56) U/L Alkaline Phosphatase 84 (38-126) U/L Total Protein 5.7 L (5.8-8.3) g/dL Albumin 2.4 L (3.0-4.8) g/dL Globulin 3.3 gm/dL Albumin/Globulin Ratio 0.7 L (1.1-1.8) Cryptococcus Ag Screen (Not Detected) 12/05/17 Range/Units 07:45 WBC (4.5-11.0) 10^3/ul RBC (3.5-6.1) 10^6/uL Hgb (14.0-18.0) g/dL Hct (42.0-52.0) % MCV (80.0-105.0) fl MCH (25.0-35.0) pg MCHC (31.0-37.0) g/dl RDW (11.5-14.5) % Plt Count (120.0-450.0) 10^3/uL MPV (7.0-11.0) fl Gran % (50.0-68.0) % Lymph % (Auto) (22.0-35.0) % Mcclain % (Auto) (1.0-6.0) % Eos % (Auto) (1.5-5.0) % Baso % (Auto) (0.0-3.0) % Gran # (1.4-6.5) Lymph # (Auto) (1.2-3.4) Mcclain # (Auto) (0.1-0.6) Eos # (Auto) (0.0-0.7) Baso # (Auto) (0.0-2.0) K/mm3 Sodium (132-148) mmol/L Potassium (3.6-5.0) mmol/L Chloride (98-107) mmol/L Carbon Dioxide (21-33) mmol/L Anion Gap (10-20) BUN (7-21) mg/dL Creatinine (0.8-1.5) mg/dl Est GFR ( Amer) Est GFR (Non-Af Amer) POC Glucose (mg/dL) (65-110) mg/dL Random Glucose (70-110) mg/dL Calcium (8.4-10.5) mg/dL Phosphorus (2.5-4.5) mg/dL Magnesium (1.7-2.2) mg/dL Total Bilirubin (0.2-1.3) mg/dL AST (17-59) U/L ALT (7-56) U/L Alkaline Phosphatase (38-126) U/L Total Protein (5.8-8.3) g/dL Albumin (3.0-4.8) g/dL Globulin gm/dL Albumin/Globulin Ratio (1.1-1.8) Cryptococcus Ag Screen Not detected (Not Detected) Laboratory Results - last 24 hr 12/05/17 12/06/17 12/07/17 07:45 21:53 05:15 WBC 5.4 RBC 2.76 L Hgb 7.9 L Hct 24.6 L MCV 89.1 MCH 28.6 MCHC 32.1 RDW 16.5 H Plt Count 171 MPV 8.7 Gran % 67.8 Lymph % (Auto) 21.5 L Mcclain % (Auto) 9.4 H Eos % (Auto) 1.3 L Baso % (Auto) 0.0 Gran # 3.69 Lymph # (Auto) 1.2 Mcclain # (Auto) 0.5 Eos # (Auto) 0.1 Baso # (Auto) 0.00 Sodium Potassium Chloride Carbon Dioxide Anion Gap BUN Creatinine Est GFR ( Amer) Est GFR (Non-Af Amer) POC Glucose (mg/dL) 94 Random Glucose Calcium Phosphorus Magnesium Total Bilirubin AST ALT Alkaline Phosphatase Total Protein Albumin Globulin Albumin/Globulin Ratio Cryptococcus Ag Screen Not detected 12/07/17 05:15 WBC RBC Hgb Hct MCV MCH MCHC RDW Plt Count MPV Gran % Lymph % (Auto) Mcclain % (Auto) Eos % (Auto) Baso % (Auto) Gran # Lymph # (Auto) Mcclain # (Auto) Eos # (Auto) Baso # (Auto) Sodium 137 Potassium 3.5 L Chloride 102 Carbon Dioxide 27 Anion Gap 11 BUN 5 L Creatinine 0.5 L Est GFR ( Amer) > 60 Est GFR (Non-Af Amer) > 60 POC Glucose (mg/dL) Random Glucose 83 Calcium 8.5 Phosphorus 5.9 H Magnesium 1.5 L Total Bilirubin 0.7 AST 34 ALT 30 Alkaline Phosphatase 84 Total Protein 5.7 L Albumin 2.4 L Globulin 3.3 Albumin/Globulin Ratio 0.7 L Cryptococcus Ag Screen Critical Care Progress Note - Nutrition Nutrition: Nutrition Category Date Time Status NPO Diet [DIET] Diets 12/02/17 Breakfast Ordered Addendum Addendum: 12/07/17 11:08 ICU Attending Addendum Patient seen and examined. Case reviewed on round with housestaff. Agree with resident note above with the following additions/exceptions: Brain perfusion scan resulted last night consistent with brain . I sat with the family in the consultation room for approx 30 mins and informed them of the result. His parents indicated they were prepared for the result and understand he has no life expectancy. That patient's nephews' birthday is today 12/07 and since they were very close, family has requested to not remove "life support" until 12/08 to avoid having these 2 events coincide together annually. For now will cont vent support and pressors. DNR DNI [employer] bank notified [facility] on board [facility] notified [facility] requested post-mortem I updated Dr Viera and Zoey on my conversation above Phoebe Hernandez MD General Office Dispatcher
[2017-12-07] MEDS ORDERED: NOREPINEPHRINE BIT/0.9 % NACL 4 MG/250 ML BAG IV ONE (10:45)
--- NOTE | 2017-12-07 14:38 | PN ---
DATE: 12/07/2017 SUBJECTIVE: The patient is seen earlier this morning in 128, bed 1. Intubated on a ventilator, unresponsive. PHYSICAL EXAMINATION: VITAL SIGNS: On exam, temperature is 100.2, heart rate of 101, blood pressures is 116/71, respiratory rate on a vent. HEENT: Examination of HEENT reveals ET tube in place. NECK: Supple. LUNGS: Have decreased breath sounds. HEART: Normal S1, S2. ABDOMEN: Soft. Nontender. LABORATORY DATA: Laboratory examination reveals the white count is 5.4, hemoglobin is 7, platelets of 171. Chemistries reveals a BUN of 5, creatinine of 0.5. C-reactive protein is 24. The patient's microbiology reveals all the cultures are negative. The patient's MRI findings are reviewed, MRI of the thoracic spine, MRI of the lumbar spine. Just disk degeneration is found in the thoracic spine and the lumbar spine. Normal lumbar lordosis. ASSESSMENT AND PLAN: A 37-year-old, who was seen early this morning in 128, bed 1 with systemic inflammatory response syndrome, status post cardiac respiratory arrest with respiratory failure, intubated on a ventilator and had length discussion yesterday with the patient's mom, father and Janna Edwards. Dr. Hernandez's note from today is reviewed. Overall prognosis is quite poor. We will follow with you. Laboratories are reviewed. Arias Aviles MD
[2017-12-08] MEDS: AMPicillin 2 GM in Sodium Chloride 0.9% 100 ML IVPB SCH ×2 (05:26→11:24)
[2017-12-08] MEDS: Cefepime IV 2 gm in NS 2 GM/100 ML BAG IVPB SCH (05:27)
[2017-12-08 06:22] LABS: HEMOGLOBIN 7.2 g/dL (14.0-18.0); MEAN CELL VOLUME 88.1 fl (80.0-105.0); MEAN CORPUSCULAR HEMOGLOBIN 28.5 pg (25.0-35.0); MEAN CORPUSCULAR HGB CONC 32.3 g/dl (31.0-37.0); MEAN PLATELET VOLUME 8.5 fl (7.0-11.0); RBC 2.53 10^6/uL (3.5-6.1); RED CELL DISTRIBUTION WIDTH 16.3 % (11.5-14.5); WHITE BLOOD COUNT 6.3 10^3/ul (4.5-11.0)
[2017-12-08 06:34] VITALS: RESP 16
[2017-12-08 06:50] LABS: ALB/GLOB RATIO 0.7 (1.1-1.8); ALBUMIN 2.3 g/dL (3.0-4.8); ALT/SGPT 26 U/L (7-56); AST/SGOT 44 U/L (17-59); BLOOD UREA NITROGEN 6 mg/dL (7-21); CALCIUM 8.1 mg/dL (8.4-10.5); GFR NON-AFRICAN AMERICAN > 60
[2017-12-08] MEDS ORDERED: Magnesium Sulfate 2 gm/50 ml 2 GM/50 ML BAG IVPB ONE (07:14)
[2017-12-08] MEDS ORDERED: Potassium Chloride 40 mEq/30 ml LIQ UD NG ONE (07:14)
--- NOTE | 2017-12-08 07:40 | CP.PCM.PN ---
Subjective - Date & Time of Evaluation Date of Evaluation: 12/08/17 Time of Evaluation: 07:39 - Subjective Subjective: Butch Pittman PGY2 Heme/Onc Progress Note for Dr. Ramos Patient was seen and examined at bedside in ICU. There were no acute overnight events. The patient remains unresponsive to painful stimuli, is unarousable off sedation, and the corneal, pupillary and gag reflexes are absent. Brain flow study showed complete absence of brain blood flow. The family has yet to make a decision about their wishes moving forward. Objective - Vital Signs/Intake and Output Vital Signs (last 24 hours): Temp Pulse Resp BP Pulse Ox 98.4 F 83 16 111/66 98 12/08/17 06:30 12/08/17 06:30 12/08/17 02:59 12/08/17 06:00 12/08/17 06:30 Intake and Output: 12/08/17 12/08/17 06:59 18:59 Intake Total 2580 Output Total 900 Balance 1680 - Medications Medications: Current Medications Artificial Tears (Artificial Tears Opht Oint) 0 gm OU Q2 PRN PRN Reason: dry eyes Last Admin: 12/04/17 17:27 Dose: 1 applic Enoxaparin Sodium (Lovenox) 40 mg SC DAILY BOBBY; Protocol Last Admin: 12/07/17 09:28 Dose: 40 mg Famotidine (Pepcid) 20 mg IVP DAILY BOBBY Last Admin: 12/07/17 09:33 Dose: 20 mg Cefepime HCl (Maxipime 2gm) 2 gm in 100 mls @ 100 mls/hr IVPB Q8 BOBBY; Protocol Stop: 12/08/17 07:46 Last Admin: 12/08/17 05:27 Dose: 100 mls/hr Acyclovir 1,000 mg/ Sodium (Chloride) 250 mls @ 167 mls/hr IV Q8 BOBBY; Protocol Last Admin: 12/08/17 05:27 Dose: 167 mls/hr Vasopressin 20 units/ Sodium (Chloride) 101 mls @ 9.09 mls/hr IV .Q11H7M BOBBY; Protocol Last Admin: 12/08/17 02:41 Dose: 0.03 u/min, 9.09 mls/hr Potassium Chloride 20 meq/ (Sodium Chloride) 1,010 mls @ 100 mls/hr IV .Q10H6M [facility] Last Admin: 12/07/17 22:06 Dose: 100 mls/hr Ampicillin 2 gm/ Sodium (Chloride) 100 mls @ 200 mls/hr IVPB Q6 [facility] Last Admin: 12/08/17 05:26 Dose: 200 mls/hr NOREPINEPHRINE BIT/0.9 % NACL (Levophed 4 Mg/ 250 Ml Ns Premixed) 4 mg in 250 mls @ 16 mls/hr IV DAILY [facility] Magnesium Sulfate (Magnesium Sulfate 2 Gm/50 Ml Water) 2 gm in 50 mls @ 50 mls/hr IVPB ONCE ONE Stop: 12/08/17 08:13 Methimazole (Tapazole) 10 mg PO DAILY [facility] Last Admin: 12/07/17 09:45 Dose: 10 mg Oseltamivir Phosphate (Tamiflu Cap) 75 mg PO BID [facility]; Protocol Stop: 12/08/17 07:57 Last Admin: 12/07/17 18:08 Dose: 75 mg Valproate Sodium (Depakene Oral Soln) 600 mg PO TID [facility] Last Admin: 12/07/17 18:08 Dose: 600 mg - Labs Labs: 12/08/17 05:30 12/08/17 05:30 - Additional Findings Additional findings: - Constitutional Appears: No Acute Distress, Other (non responsive, off sedation) - Head Exam Head Exam: NORMAL INSPECTION - Eye Exam Eye Exam: absent: PERRL - ENT Exam Additional comments: ET tube in place - Respiratory Exam Respiratory Exam: Clear to Ausculation Bilateral. absent: Rales, Rhonchi, Wheezes Additional comments: intubated, on vent - Cardiovascular Exam Cardiovascular Exam: RRR, +S1, +S2. absent: Murmur - GI/Abdominal Exam GI & Abdominal Exam: Soft. absent: Distended, Tenderness - Extremities Exam Extremities Exam: absent: Full ROM, Pedal Edema - Neurological Exam Neurological Exam: Altered Additional comments: gag, corneal and pupillary reflexes absent - Skin Skin Exam: Pallor Assessment and Plan - Assessment and Plan (Free Text) Assessment: 37 year old male with a PMH of multiple spine surgeries with post-op complications who was admitted for acute delerium, found to have episodes of spiking fevers. Infectious, metabolic, rheumatologic, neurologic and psych causes were being worked up by medical team and specialists. Unfortunately, the patient had 2 episodes of cardiac arrest due to bradycardia and PEA but despite ROSC being obtained, the patient is unresponsive, intubated and requiring vasopressors for pressure support having likely suffered anoxic injury and is currently displaying absence of brainstem reflexes. After transfer to ICU, the patient continues to be followed by neurology, cardiology/EP, ID and is on empiric antibiotics, empiric antivirals and antiseizure medications. Heme/Onc was consulted for possible bone marrow biopsy, but patient's family in discussion with Dr. Ramos no longer request it. Awaiting family decision regarding future care. In general, family is requesting conservative management and patient is currently DNR; palliative care is also following for assistance. Plan: - Continue to educate and comfort family - Palliative care is following regarding care moving forward - Recs per Neuro, ID and Cardio appreciated - Care per primary medical/ICU team - No intervention for bone marrow biopsy or other procedures planned at this time - Further recs per Dr. Ramos Case was reviewed and discussed with attending, Dr. Rachel Pittman PGY2
--- NOTE | 2017-12-08 09:01 | CP.CCUPN ---
<Manolo Silva - Last Filed: 12/08/17 11:27> CCU Subjective - Physician Review Subjective (Free Text): Manolo Silva DO, PGY-1 ICU Progress Note for Dr. Kimmie Hernandez Patient was seen and examined at bedside this AM. No acute events overnight. He is still non-responsive to painful stimuli. Gag reflex, pupillary, and dolls eyes reflexes still absent. He is s/p cerebral blood flow which showed no flow. After discussion with family, plan to withdraw today. CCU Objective - Vital Signs / Intake & Output Vital Signs (Last 4 hours): Vital Signs Temp Pulse BP Pulse Ox 12/08/17 06:30 98.4 F 83 98 12/08/17 06:15 98.4 F 82 98 12/08/17 06:00 89 111/66 12/08/17 05:59 98.4 F 84 98 12/08/17 05:45 98.6 F 84 98 12/08/17 05:30 98.6 F 79 98 12/08/17 05:15 98.6 F 84 98 12/08/17 05:00 109/64 12/08/17 04:59 98.6 F 86 97 Intake and Output (Last 8hrs): Intake & Output 12/07/17 12/08/17 12/08/17 22:59 06:59 14:59 Intake Total 3339 101 Output Total 2000 Balance 1339 101 Weight 221 lb Intake: IV 3079 101 IVF 1200 antibiotics 1500 levophed 270 vassopressin 109 Oral 260 Output: Urine 2000 Urethral (Laureano) 2000 Other: # Bowel Movements 0 - Physical Exam Head: Positive for: Atraumatic, Normocephalic Pupils: Positive for: Non-Reactive Extroacular Muscles: Positive for: Other (no movement, no dolls eyes) Conjunctiva: Positive for: Normal Mouth: Positive for: Moist Mucous Membranes Neck: Negative for: JVD Respiratory/Chest: Positive for: Clear to Auscultation, Other (ventilator dependent). Negative for: Respiratory Distress, Accessory Muscle Use, Rales, Rhonchi Cardiovascular: Positive for: Regular Rate and Rhythm. Negative for: Murmurs, Rub, Gallop Abdomen: Negative for: Distention, Mass/Organomegaly Upper Extremity: Positive for: Normal Inspection. Negative for: Cyanosis, Edema Lower Extremity: Positive for: Normal Inspection, NORMAL PULSES. Negative for: Edema Neurological: Positive for: Other (Non-responsive to painful stimuli or noise, pupils not reactive, no dolls eyes or gag reflexes, currently GCS=3) Skin: Positive for: Warm, Dry. Negative for: Rashes - Medications Active Medications: Active Medications Generic Name Dose Route Start Last Admin Trade Name Freq PRN Reason Stop Dose Admin Artificial Tears 0 gm 12/04/17 03:06 12/04/17 17:27 Artificial Tears Opht Oint OU 1 applic Q2 PRN Administration dry eyes Enoxaparin Sodium 40 mg 12/01/17 10:00 12/07/17 09:28 Lovenox SC 40 mg DAILY BOBBY Administration Protocol Famotidine 20 mg 12/03/17 10:00 12/07/17 09:33 Pepcid IVP 20 mg DAILY BOBBY Administration Acyclovir 1,000 mg/ Sodium 250 mls @ 167 mls/hr 12/03/17 18:01 12/08/17 05:27 Chloride IV 167 mls/hr Q8 BOBBY Administration Protocol Vasopressin 20 units/ Sodium 101 mls @ 9.09 mls/hr 12/03/17 20:45 12/08/17 02:41 Chloride IV 0.03 u/min .Q11H7M BOBBY 9.09 mls/hr Administration Protocol 0.03 U/MIN Potassium Chloride 20 meq/ 1,010 mls @ 100 mls/hr 12/05/17 08:31 12/07/17 22:06 Sodium Chloride IV 100 mls/hr .Q10H6M BOBBY Administration Ampicillin 2 gm/ Sodium 100 mls @ 200 mls/hr 12/05/17 18:00 12/08/17 05:26 Chloride IVPB 200 mls/hr Q6 BOBBY Administration NOREPINEPHRINE BIT/0.9 % NACL 4 mg in 250 mls @ 16 mls/hr 12/08/17 10:00 Levophed 4 Mg/ 250 Ml Ns Premixed IV DAILY BOBBY Methimazole 10 mg 11/27/17 10:00 12/07/17 09:45 Tapazole PO 10 mg DAILY BOBBY Administration Valproate Sodium 600 mg 12/03/17 14:00 12/07/17 18:08 Depakene Oral Soln PO 600 mg TID BOBBY Administration - Patient Studies Lab Studies: Microbiology Studies 09/28/18 23:25 Blood Culture - Final Blood-Venous NO GROWTH AFTER 5 DAYS Gram Stain - Final TEST NOT PERFORMED 12/02/17 23:25 Blood Culture - Final Blood-Venous NO GROWTH AFTER 5 DAYS Gram Stain - Final TEST NOT PERFORMED Lab Studies 12/08/17 12/08/17 Range/Units 05:30 05:30 WBC 6.3 (4.5-11.0) 10^3/ul RBC 2.53 L (3.5-6.1) 10^6/uL Hgb 7.2 L (14.0-18.0) g/dL Hct 22.3 L (42.0-52.0) % MCV 88.1 (80.0-105.0) fl MCH 28.5 (25.0-35.0) pg MCHC 32.3 (31.0-37.0) g/dl RDW 16.3 H (11.5-14.5) % Plt Count 166 (120.0-450.0) 10^3/uL MPV 8.5 (7.0-11.0) fl Sodium 133 (132-148) mmol/L Potassium 3.1 L (3.6-5.0) mmol/L Chloride 100 (98-107) mmol/L Carbon Dioxide 26 (21-33) mmol/L Anion Gap 10 (10-20) BUN 6 L (7-21) mg/dL Creatinine 0.4 L (0.8-1.5) mg/dl Est GFR ( Amer) > 60 Est GFR (Non-Af Amer) > 60 Random Glucose 89 (70-110) mg/dL Calcium 8.1 L (8.4-10.5) mg/dL Phosphorus 6.0 H (2.5-4.5) mg/dL Magnesium 1.6 L (1.7-2.2) mg/dL Total Bilirubin 0.6 (0.2-1.3) mg/dL AST 44 (17-59) U/L ALT 26 (7-56) U/L Alkaline Phosphatase 87 (38-126) U/L Total Protein 5.6 L (5.8-8.3) g/dL Albumin 2.3 L (3.0-4.8) g/dL Globulin 3.2 gm/dL Albumin/Globulin Ratio 0.7 L (1.1-1.8) Laboratory Results - last 24 hr 12/08/17 12/08/17 05:30 05:30 WBC 6.3 RBC 2.53 L Hgb 7.2 L Hct 22.3 L MCV 88.1 MCH 28.5 MCHC 32.3 RDW 16.3 H Plt Count 166 MPV 8.5 Sodium 133 Potassium 3.1 L Chloride 100 Carbon Dioxide 26 Anion Gap 10 BUN 6 L Creatinine 0.4 L Est GFR ( Amer) > 60 Est GFR (Non-Af Amer) > 60 Random Glucose 89 Calcium 8.1 L Phosphorus 6.0 H Magnesium 1.6 L Total Bilirubin 0.6 AST 44 ALT 26 Alkaline Phosphatase 87 Total Protein 5.6 L Albumin 2.3 L Globulin 3.2 Albumin/Globulin Ratio 0.7 L Review of Systems - Review of Systems Systems not reviewed;Unavailable: Intubated Critical Care Progress Note - Ventilator Checklist Head of Bed 30 Degrees: Yes Daily Sedation Vacation: Yes Daily Assessment of Readiness to Wean: Yes Daily Spontaneous Breathing Trial: Yes PUD Prophalyxis: Yes DVT Prophylaxis: Yes - Vent Settings MODE:: PRVC TIDAL VOLUME:: 500 RESP RATE:: 16 FIO2:: 50 PEEP:: 5 - Extremities/Vascular Does the Patient have a Central Venous Catheter?: No Does the Patient have a Laureano Catheter?: Yes - Prophylaxis GI Prophylaxis GI: Pepsid - Prophylaxis DVT Prophylaxis DVT: Lovenox - Nutrition Nutrition: Nutrition Category Date Time Status NPO Diet [DIET] Diets 12/02/17 Breakfast Ordered Assessment/Plan - Assessment and Plan (Free Text) Assessment: 37 yo M originally presented to ED with intermittent fever (Tmax 103), altered mental status, and hallucinations admitted for neurological evaluation. He initially refused LP. While in CT, he became bradycardic and hypotensive and was subsequently admitted to ICU. On his first night in ICU, he coded twice. ROSC was achieved. EEG completed at the time showed extensive seizure activity. He was subsequently given 2 mg ativan, 1 g keppra, and 1 g valproic acid with resolution of seizure. Cerebral blood flow completed yesterday showed lack of flow. Plan: Neuro: -MRI thoracic and lumbar spine completed -No evidence of epidural abscess or other concerning findings -Patient with severe anoxic brain injury following 2 codes -Plan to withdraw today Cardio: -RRR, normotensive, no signs of HD compromise -Maintain MAP>65 -Still requiring levophed and vasopressin Pulm: -No signs of respiratory distress. CTA B/L -Maintain O2 saturation>95%. -Vent: PRVC TV 500, PEEP 5, O2 50%, RR 16 -Elevated head of bed 30 degrees -Stop daily ABG, CXR, stop all daily labs GI: -D/c pepcid for PPX /Nephro: -BUN/Cr stable -Laureano in place -UOP of 2000 overnight Endocrine: -Found to have low TSH on admission -Subsequently treated with methimazole Heme/Onc: -H/H stable -Stop daily CBC -Bone marrow biopsy no longer being pursued ID: -Afebrile, no leukocytosis since 12/02/17 -Blood, urine cx all negative -LP not initially as patient was refusing at the time -D/c all abx GI/DVT PPX: was receiving Pepcid and lovenox, no longer needed Case and plan reviewed with my attending Dr. Kimmie Silva DO IM Resident PGY-1 <Phoebe Hernandez - Last Filed: 12/08/17 17:24> CCU Objective - Vital Signs / Intake & Output Intake and Output (Last 8hrs): Intake & Output 12/08/17 12/08/17 12/08/17 06:59 14:59 22:59 Intake Total 101 Balance 101 Weight 100.244 kg Intake: IV 101 - Medications Active Medications: Active Medications Generic Name Dose Route Start Last Admin Trade Name Freq PRN Reason Stop Dose Admin Artificial Tears 0 gm 12/04/17 03:06 12/04/17 17:27 Artificial Tears Opht Oint OU 1 applic Q2 PRN Administration dry eyes Enoxaparin Sodium 40 mg 12/01/17 10:00 12/08/17 10:21 Lovenox SC 40 mg DAILY BOBBY Administration Protocol Famotidine 20 mg 12/03/17 10:00 12/08/17 10:21 Pepcid IVP 20 mg DAILY BOBBY Administration Acyclovir 1,000 mg/ Sodium 250 mls @ 167 mls/hr 12/03/17 18:01 12/08/17 15:19 Chloride IV 167 mls/hr Q8 BOBBY Administration Protocol Vasopressin 20 units/ Sodium 101 mls @ 9.09 mls/hr 12/03/17 20:45 12/08/17 02:41 Chloride IV 0.03 u/min .Q11H7M BOBBY 9.09 mls/hr Administration Protocol 0.03 U/MIN Potassium Chloride 20 meq/ 1,010 mls @ 100 mls/hr 12/05/17 08:31 12/08/17 10:47 Sodium Chloride IV 100 mls/hr .Q10H6M BOBBY Administration Ampicillin 2 gm/ Sodium 100 mls @ 200 mls/hr 12/05/17 18:00 12/08/17 11:24 Chloride IVPB 200 mls/hr Q6 BOBBY Administration NOREPINEPHRINE BIT/0.9 % NACL 4 mg in 250 mls @ 16 mls/hr 12/08/17 10:00 12/07/17 10:17 Levophed 4 Mg/ 250 Ml Ns Premixed IV 16 mls/hr DAILY BOBBY Administration Methimazole 10 mg 11/27/17 10:00 12/08/17 10:22 Tapazole PO 10 mg DAILY BOBBY Administration Valproate Sodium 600 mg 12/03/17 14:00 12/08/17 15:17 Depakene Oral Soln PO 600 mg TID BOBBY Administration - Patient Studies Lab Studies: Microbiology Studies 12/02/17 23:25 Blood Culture - Final Blood-Venous NO GROWTH AFTER 5 DAYS Gram Stain - Final TEST NOT PERFORMED 12/02/17 23:25 Blood Culture - Final Blood-Venous NO GROWTH AFTER 5 DAYS Gram Stain - Final TEST NOT PERFORMED Lab Studies 12/08/17 12/08/17 11/27/17 Range/Units 05:30 05:30 13:00 WBC 6.3 (4.5-11.0) 10^3/ul RBC 2.53 L (3.5-6.1) 10^6/uL Hgb 7.2 L (14.0-18.0) g/dL Hct 22.3 L (42.0-52.0) % MCV 88.1 (80.0-105.0) fl MCH 28.5 (25.0-35.0) pg MCHC 32.3 (31.0-37.0) g/dl RDW 16.3 H (11.5-14.5) % Plt Count 166 (120.0-450.0) 10^3/uL MPV 8.5 (7.0-11.0) fl Sodium 133 (132-148) mmol/L Potassium 3.1 L (3.6-5.0) mmol/L Chloride 100 (98-107) mmol/L Carbon Dioxide 26 (21-33) mmol/L Anion Gap 10 (10-20) BUN 6 L (7-21) mg/dL Creatinine 0.4 L (0.8-1.5) mg/dl Est GFR ( Amer) > 60 Est GFR (Non-Af Amer) > 60 Random Glucose 89 (70-110) mg/dL Calcium 8.1 L (8.4-10.5) mg/dL Phosphorus 6.0 H (2.5-4.5) mg/dL Magnesium 1.6 L (1.7-2.2) mg/dL Total Bilirubin 0.6 (0.2-1.3) mg/dL AST 44 (17-59) U/L ALT 26 (7-56) U/L Alkaline Phosphatase 87 (38-126) U/L Total Protein 5.6 L (5.8-8.3) g/dL Albumin 2.3 L (3.0-4.8) g/dL Globulin 3.2 gm/dL Albumin/Globulin Ratio 0.7 L (1.1-1.8) JACI Nuclear Membr Pat Cancelled Laboratory Results - last 24 hr 11/27/17 12/08/17 12/08/17 13:00 05:30 05:30 WBC 6.3 RBC 2.53 L Hgb 7.2 L Hct 22.3 L MCV 88.1 MCH 28.5 MCHC 32.3 RDW 16.3 H Plt Count 166 MPV 8.5 Sodium 133 Potassium 3.1 L Chloride 100 Carbon Dioxide 26 Anion Gap 10 BUN 6 L Creatinine 0.4 L Est GFR ( Amer) > 60 Est GFR (Non-Af Amer) > 60 Random Glucose 89 Calcium 8.1 L Phosphorus 6.0 H Magnesium 1.6 L Total Bilirubin 0.6 AST 44 ALT 26 Alkaline Phosphatase 87 Total Protein 5.6 L Albumin 2.3 L Globulin 3.2 Albumin/Globulin Ratio 0.7 L JACI Nuclear Membr Pat Cancelled Critical Care Progress Note - Nutrition Nutrition: Nutrition Category Date Time Status NPO Diet [DIET] Diets 12/02/17 Breakfast Ordered Addendum Addendum: 12/08/17 17:16 ICU Attending Addendum Patient seen and examined. Case reviewed on round with housestaff. Agree with resident note above with the following additions/exceptions: Brain perfusion scan consistent with brain . Family aware (see my prev day's documentation) Parents arrived approx 330pm (1530) Prepared to remove vent/pressors and allow his to pass today Requested to wait until the evening when their daughters arrive agreed that abx were no longer necessary, will d/c I detailed the process with them which will be: Disconnect vent / stop pressors Family would like to be in the room during this process as they want to "witness his last breath" Once patient is pronounce, Ampoule Inspector should be notified Family has requested Autopy post-mortem I updated Dr Greer I will update to night team if necessary Phoebe Hernandez MD Weight Shifter
[2017-12-08] MEDS ORDERED: NOREPINEPHRINE BIT/0.9 % NACL 4 MG/250 ML BAG IV SCH (10:00)
[2017-12-08] MEDS: Valproic Acid 250 mg/5 ml UD Cup PO SCH ×2 (10:15→15:17)
[2017-12-08] MEDS: Enoxaparin 40 mg Syringe SC SCH (10:21)
[2017-12-08] MEDS: methIMAzole 5 MG TAB PO SCH (10:22)
--- NOTE | 2017-12-08 11:15 | PN ---
DATE: 12/08/2017 SUBJECTIVE: The patient is seen in bed, in no acute distress, intubated on a ventilator, unresponsive. Overall, poor condition. PHYSICAL EXAMINATION: VITAL SIGNS: On exam, temperature is 98, blood pressure is 111/66, respiratory rate on a vent, heart rate of 83. HEENT: Examination of HEENT is unremarkable. The ET tube in place. NECK: Supple. LUNGS: Have decreased breath sounds. HEART: Normal S1, S2. ABDOMEN: Soft. LABORATORY DATA: Laboratory examination reveals a white count of 6.3, hemoglobin of 7 and platelets of 166. Chemistries reveals the patient's BUN 6, creatinine of 0.4. Urinalysis is noted. Toxicology is noted. Serology is reviewed. Microbiology reveals the blood cultures are negative. Urine cultures are negative. All cultures have been negative. ASSESSMENT AND PLAN: A 37-year-old male with systemic inflammatory response syndrome, status post respiratory failure, intubated on a ventilator, Cardiac arrest and currently discussion about possible terminal extubation with Janna Edwards. I met with the patient's mother and the patient's father. We will follow with you. Overall prognosis is poor. Arias Aviles MD
--- NOTE | 2017-12-08 16:40 | CP.PCM.PN ---
<Mercedes Dubon - Last Filed: 12/08/17 16:41> Subjective - Date & Time of Evaluation Date of Evaluation: 12/08/17 Time of Evaluation: 09:30 - Subjective Subjective: PGY-1 Mercedes Dubon D.O. medicine progress note for Dr. Greer's service: Patient was seen and examined this morning in the ICU. No change from yesterda ys presentation. Patient is intubated and on a ventilator. He is unresponsive to painful stimuli. No gag reflex. His pupils are fixed and dilated. ROS unable to be obtained. Prognosis is very poor. Objective - Vital Signs/Intake and Output Vital Signs (last 24 hours): Temp Pulse Resp BP Pulse Ox 98.4 F 83 16 111/66 98 12/08/17 06:30 12/08/17 06:30 12/08/17 02:59 12/08/17 06:00 12/08/17 06:30 Intake and Output: 12/08/17 12/08/17 06:59 18:59 Intake Total 2580 Output Total 900 Balance 1680 - Medications Medications: Current Medications Artificial Tears (Artificial Tears Opht Oint) 0 gm OU Q2 PRN PRN Reason: dry eyes Last Admin: 12/04/17 17:27 Dose: 1 applic Enoxaparin Sodium (Lovenox) 40 mg SC DAILY BOBBY; Protocol Last Admin: 12/08/17 10:21 Dose: 40 mg Famotidine (Pepcid) 20 mg IVP DAILY BOBBY Last Admin: 12/08/17 10:21 Dose: 20 mg Acyclovir 1,000 mg/ Sodium (Chloride) 250 mls @ 167 mls/hr IV Q8 BOBBY; Protocol Last Admin: 12/08/17 15:19 Dose: 167 mls/hr Vasopressin 20 units/ Sodium (Chloride) 101 mls @ 9.09 mls/hr IV .Q11H7M BOBBY; Protocol Last Admin: 12/08/17 02:41 Dose: 0.03 u/min, 9.09 mls/hr Potassium Chloride 20 meq/ (Sodium Chloride) 1,010 mls @ 100 mls/hr IV .Q10H6M BOBBY Last Admin: 12/08/17 10:47 Dose: 100 mls/hr Ampicillin 2 gm/ Sodium (Chloride) 100 mls @ 200 mls/hr IVPB Q6 BOBBY Last Admin: 12/08/17 11:24 Dose: 200 mls/hr NOREPINEPHRINE BIT/0.9 % NACL (Levophed 4 Mg/ 250 Ml Ns Premixed) 4 mg in 250 mls @ 16 mls/hr IV DAILY [facility] Last Admin: 12/07/17 10:17 Dose: 16 mls/hr Methimazole (Tapazole) 10 mg PO DAILY [facility] Last Admin: 12/08/17 10:22 Dose: 10 mg Valproate Sodium (Depakene Oral Soln) 600 mg PO TID [facility] Last Admin: 12/08/17 15:17 Dose: 600 mg - Labs Labs: 12/08/17 05:30 12/08/17 05:30 - Constitutional Appears: No Acute Distress - Head Exam Head Exam: ATRAUMATIC, NORMAL INSPECTION - Eye Exam Pupil Exam: Fixed, Mydriatic - ENT Exam ENT Exam: Mucous Membranes Moist Additional comments: NGT in place - Respiratory Exam Respiratory Exam: Clear to Ausculation Bilateral Additional comments: intubated on ventilator - Cardiovascular Exam Cardiovascular Exam: REGULAR RHYTHM, +S1, +S2 - GI/Abdominal Exam GI & Abdominal Exam: Soft, Hypoactive Bowel Sounds - Rectal Exam Rectal Exam: Deferred - Extremities Exam Extremities Exam: Normal Inspection - Neurological Exam Additional comments: unresponsive - Skin Skin Exam: Dry, Intact, Pallor, Warm Assessment and Plan - Assessment and Plan (Free Text) Assessment: Patient is a 37 year old male with a PMH of cervical radiculopathy w/ herniated disc, cervical spondylosis w/ myelopathy, thoracic spondylosis s/p extensive spinal surgeries, and depression vs schizophrenia spectrum under hospital management for AMS. Admitted for delirium 2/2 to polypharmacy, including chronic multiple opiates usage, which has resolved and he is now at baseline mental status. Patient has spiked fevers during hospital course possible due to hyperthyroidism; ruled out infectious causes except patient not consenting to LP. Also, patient has mod-severe muscle atrophy due to prolonged hospital stay, requiring physical therapy. Patient developed increased sinus tachycardia and was transferred to [facility] on 11/29. Patient also noted to intermittently have auditory and visual hallucinations- observed to be responding to internal stimuli. Patient seems to have a blank stare and become altered with each fever. His mental status resolves when afebrile. EEG was abnormal with subclinical seizure activity. On 12/02, welfare aide was called as patient became totally unresponsive with seizure-like activity. He was transferred to ICU. Later that evening, 2 code blues were called. Patient is currently intubated on mechanical ventilation after two episodes of cardiopulmonary arrest and resuscitation. Patient's family subsequently made him DNR. Plan: Anoxic encephalopathy- s/p cardiac arrest x2 - MRI w/ and w/o contrast: unremarkable, no evidence of herpes encephalitis - Discontinued opiates, benzos, stimulants - Brain flow scan- no flow - Neurology consulted (Levy) Fevers of unknown origin, presently afebrile - Last fever was on 12/02 100.4 F, Tmax 103 - Urine, sputum, blood Cx negative on multiple occasions - LE Dopplers (11/23): no DVT - CXR (11/25): no active disease - RPR, HIV, JACI, TB panel, CMV negative - Procal <0.05 - Echo: EF 58%, no vegetations seen but limited study with poor visualization of valves - CT and MRI of spine: no acute abnormalities, including infection sources/epidural abscesses - Acyclovir 1000 mg IV Q8H - Ampicillin 2 g Q6H - Cefepime 2 g IV Q8H - Vancomycin 1 g IV Q12H - Tamiflu 75 mg via NGT BID - ID consulted (Abraham)- medications as per ID - Hematology/oncology consulted (Rachel) Seizures - Video EEG- abnormal, seizure activity seen - Depakote 600 mg via NGT TID - Neurology consulted (Levy) Sinus tachycardia - Continue to monitor vitals - EKG: no ST changes - CTA chest: Cannot rule out segmental/subsegmental pulmonary artery embolism. No large central pulmonary embolism. - V/Q scan: no PE - Cardiology consulted ([facility]) - EP consulted (Og) Hyperthyroidism - Methimazole 10 mg PO daily - Endocrinology consulted (Garrick) HTN- currently hypotension on 2 pressors (vasopressin, norepi) - All antihypertensives held - Continue to monitor vitals Hypokalemia - Repleted - Continue to monitor Hypomagnesemia - Repleted - Continue to monitor IVF: 20 mEq K in NS @ 100 Diet: NPO GI ppx: Pepcid 20 mg IV daily VTE ppx: Lovenox 40 mg SC daily Code status: DNR- palliative consulted Case discussed with attending, Dr. Greer. <Jomar Greer - Last Filed: 12/09/17 15:14> Objective - Vital Signs/Intake and Output Vital Signs (last 24 hours): Temp Pulse Resp BP Pulse Ox 95.7 F L 46 L 16 100/45 L 84 L 12/09/17 00:45 12/08/17 22:30 12/08/17 02:59 12/08/17 22:16 12/08/17 22:45 Intake and Output: 12/09/17 12/09/17 06:59 18:59 Intake Total 5143 Output Total 900 Balance 4243 - Labs Labs: 12/08/17 05:30 12/08/17 05:30 Attending/Attestation - Attestation I have personally seen and examined this patient.: Yes I have fully participated in the care of the patient.: Yes I have reviewed all pertinent clinical information, including history, physical exam and plan: Yes Notes (Text): 12/09/17 15:13 attending note; Patient seen and examined with resident in ICU. Patient is on ventilator. On pressors. no change in neurological status. Patient is a 37 year old male with past medical history that is significant for cervical radiculopathy with herniated disc, cervical spondylosis with myelopathy, thoracic spondylosis, and depression that presented to the emergency room with visual hallucinations. 1. Anoxic encephalopathy. S/P code blue x 2. Patient intubated. no pupillary response. No gag reflex. Patient with no activity on video EEG. cerebral flow scan shows complete absence of intracranial blood flow.Continue with pressors. Family aware of the scan results. MRI of thoracic and lumbar spine showed no epidural abscess. 2. Fever of unknown origin. has low grade temperature now. ID following, recommendations appreciated. All cultures negative. Continue with Ampicillin, Acyclovir and Cefepime. Continue with Tamiflu. 3. Hyperthyroidism. Continue methimazole. case discussed with separator operator shellfish meats in detail. awaiting for the family for terminal extubation. Family is requesting autopsy after withdrawal of care. we will contact Food Inspector's Office after withdrawal of care. Nursing staff informed. Patient is DNR now. 12/09/17 15:13
[2017-12-08] MEDS ORDERED: Morphine 5 MG/ML SYRINGE IVP STA (22:30)
--- NOTE | 2017-12-08 23:05 | CP.PCM.PRO ---
Pronouncement of Note - Clinical Findings Physical Exam: No Response Verbal/Painful Stimuli, Absent Peripheral Puls es{Carotid & Femoral}, Absent Heart & Breath Sounds, No Pupillary Light Reflex, No Corneal Reflex, Pupils Fixed & Dilated, Absence of Vital Signs - Pronouncement Time Time of Pronouncement of : 22:54 - Notifications Pronouncement Notifications: Family Notified, Atending Notified Marionette Performer Notified: Yes - Autopsy Autopsy Requested: Yes - [place] [id number] Additional Comments: accident examiner has been notified. ME in contact with PMD.
[2017-12-09 04:52] VITALS: BP 100/45; PULSE 46; TEMP 95.7; O2SAT 84
--- NOTE | 2017-12-09 06:20 | CP.PCM.DIS ---
<Mercedes Dubon - Last Filed: 12/09/17 15:24> Provider - Provider Date of Admission: 11/06/17 16:22 Attending physician: Jomar Greer MD Primary care physician: Butch Gasca MD Consults: ICU ID psychiatry neurology endocrinology cardiology EP palliative Time Spent in preparation of Discharge (in minutes): 60 Diagnosis - Discharge Diagnosis (1) Anoxic encephalopathy Status: Chronic Priority: High (2) Fever Status: Acute Priority: High (3) Altered mental status Status: Acute Priority: High (4) Hyperthyroidism Status: Chronic Priority: Medium (5) Sinus tachycardia Status: Acute Priority: Medium (6) Muscle atrophy Status: Chronic Priority: Medium (7) Back pain Status: Chronic Priority: Medium Hospital Course - Lab Results Lab Results: Micro Results 12/02/17 23:25 Blood-Venous Blood Culture - Final NO GROWTH AFTER 5 DAYS 12/02/17 23:25 Blood-Venous Gram Stain - Final TEST NOT PERFORMED 12/02/17 23:25 Blood-Venous Blood Culture - Final NO GROWTH AFTER 5 DAYS 12/02/17 23:25 Blood-Venous Gram Stain - Final TEST NOT PERFORMED 11/29/17 16:04 Blood-Venous Blood Culture - Final NO GROWTH AFTER 5 DAYS 11/29/17 16:04 Blood-Venous Gram Stain - Final TEST NOT PERFORMED 11/29/17 16:04 Blood-Venous Blood Culture - Final NO GROWTH AFTER 5 DAYS 11/29/17 16:04 Blood-Venous Gram Stain - Final TEST NOT PERFORMED 12/03/17 01:30 Urine,Laureano Urine Culture - Final No Growth (<1,000 CFU/ML) 11/29/17 14:15 Urine,Laureano Urine Culture - Final No Growth (<1,000 CFU/ML) 11/25/17 22:37 Blood Blood Culture - Final NO GROWTH AFTER 5 DAYS 11/25/17 22:37 Blood Gram Stain - Final TEST NOT PERFORMED 11/25/17 22:37 Blood Blood Culture - Final NO GROWTH AFTER 5 DAYS 11/25/17 22:37 Blood Gram Stain - Final TEST NOT PERFORMED 11/25/17 23:30 Sputum Gram Stain - Final 11/25/17 23:30 Sputum Sputum Culture - Final NORMAL ORAL PHIL 11/26/17 09:41 Urine,Catheterized Urine Culture - Final No Growth (<1,000 CFU/ML) 11/21/17 12:40 Blood-Venous Blood Culture - Final NO GROWTH AFTER 5 DAYS 11/21/17 12:40 Blood-Venous Gram Stain - Final TEST NOT PERFORMED 11/21/17 12:20 Blood-Venous Blood Culture - Final NO GROWTH AFTER 5 DAYS 11/21/17 12:20 Blood-Venous Gram Stain - Final TEST NOT PERFORMED 11/22/17 13:27 Nose MRSA Culture (Admit) - Final MRSA NOT DETECTED 11/15/17 21:10 Blood Blood Culture - Final NO GROWTH AFTER 5 DAYS 11/15/17 21:10 Blood Gram Stain - Final TEST NOT PERFORMED 11/15/17 21:00 Blood Blood Culture - Final NO GROWTH AFTER 5 DAYS 11/15/17 21:00 Blood Gram Stain - Final TEST NOT PERFORMED 11/13/17 13:20 Blood Blood Culture - Final NO GROWTH AFTER 5 DAYS 11/13/17 13:20 Blood Gram Stain - Final TEST NOT PERFORMED 11/17/17 03:50 Urine Urine Culture - Final No Growth (<1,000 CFU/ML) 11/15/17 16:22 Urine,Catheterized Urine Culture - Final No Growth (<1,000 CFU/ML) 11/07/17 10:05 Blood-Venous Blood Culture - Final NO GROWTH AFTER 5 DAYS 11/07/17 10:05 Blood-Venous Gram Stain - Final TEST NOT PERFORMED 11/07/17 10:05 Blood-Venous Blood Culture - Final NO GROWTH AFTER 5 DAYS 11/07/17 10:05 Blood-Venous Gram Stain - Final TEST NOT PERFORMED 11/06/17 03:00 Urine Urine Culture - Final <10,000 CFU/ML. MULTIPLE SPECIES. PROBABLE CONTAMINATION. Most Recent Lab Values WBC 6.3 10^3/ul (4.5-11.0) 12/08/17 05:30 RBC 2.53 10^6/uL (3.5-6.1) L 12/08/17 05:30 Hgb 7.2 g/dL (14.0-18.0) L 12/08/17 05:30 Hct 22.3 % (42.0-52.0) L 12/08/17 05:30 MCV 88.1 fl (80.0-105.0) 12/08/17 05:30 MCH 28.5 pg (25.0-35.0) 12/08/17 05:30 MCHC 32.3 g/dl (31.0-37.0) 12/08/17 05:30 RDW 16.3 % (11.5-14.5) H 12/08/17 05:30 Plt Count 166 10^3/uL (120.0-450.0) 12/08/17 05:30 MPV 8.5 fl (7.0-11.0) 12/08/17 05:30 Gran % 67.8 % (50.0-68.0) 12/07/17 05:15 Lymph % (Auto) 21.5 % (22.0-35.0) L 12/07/17 05:15 [place] % (Auto) 9.4 % (1.0-6.0) H 12/07/17 05:15 Eos % (Auto) 1.3 % (1.5-5.0) L 12/07/17 05:15 Baso % (Auto) 0.0 % (0.0-3.0) 12/07/17 05:15 Gran # 3.69 (1.4-6.5) 12/07/17 05:15 Lymph # (Auto) 1.2 (1.2-3.4) 12/07/17 05:15 [place] # (Auto) 0.5 (0.1-0.6) 12/07/17 05:15 Eos # (Auto) 0.1 (0.0-0.7) 12/07/17 05:15 Baso # (Auto) 0.00 K/mm3 (0.0-2.0) 12/07/17 05:15 ESR 80 mm/hr (0.0-15.0) H 11/27/17 13:00 D-Dimer, Quantitative 6102 ng/mlDDU (0-243) H 12/02/17 23:25 pCO2 36 mm/Hg (35-45) 12/06/17 06:21 pO2 143.0 mm/Hg (80-100) H 12/06/17 06:21 HCO3 25.0 mmol/L (21-28) 12/06/17 06:21 ABG pH 7.45 (7.35-7.45) 12/06/17 06:21 ABG Total CO2 26.1 mmol.L (22-28) 12/06/17 06:21 ABG O2 Saturation 100.1 % (95-98) H 12/06/17 06:21 ABG O2 Content 10.9 ML/dl (15-23) L 12/06/17 06:21 ABG Base Excess 1.0 mmol/L (-2.0-3.0) 12/06/17 06:21 ABG Hemoglobin 7.7 g/dL (11.7-17.4) L 12/06/17 06:21 ABG Carboxyhemoglobin 1.7 % (0.5-1.5) H 12/06/17 06:21 POC ABG HHb (Measured) -0.1 % (0-5) L 12/06/17: ABG Methemoglobin 1.2 % (0.0-3.0) 12/06/17 06: ABG O2 Capacity 10.9 mL/dl (16-24) L 12/06/17 06:21 VBG pH 7.58 (7.32-7.43) H 11/29/17 16:04 VBG pCO2 32.0 (40-60) L 11/29/17 16:04 VBG HCO3 30.0 mmol/l (21-28) H 11/29/17 16:04 VBG Total CO2 31.0 mmol.L (22-28) H 11/29/17 16:04 VBG O2 Sat (Calc) 98.4 % (40-65) H 11/29/17 16:04 VBG Base Excess 8.1 mmol/L (0.0-2.0) H 11/29/17 16:04 VBG Potassium 3.7 mmol/L (3.6-5.2) 11/29/17 16:04 Hgb O2 Saturation 97.2 % (95.0-98.0) 12/06/17 06:21 Sodium 139.0 mmol/L (132-148) 11/29/17 16:04 Chloride 103.0 mmol/L (98-107) 11/29/17 16:04 Glucose 148 mg/dl (75-110) H 11/29/17 16:04 Lactate 1.3 mmol/L (0.7-2.1) 11/29/17 16:04 FiO2 50.0 % 10/02/18 06:21 Sodium 133 mmol/L (132-148) 12/08/17 05:30 Potassium 3.1 mmol/L (3.6-5.0) L 12/08/17 05:30 Chloride 100 mmol/L (98-107) 12/08/17 05:30 Carbon Dioxide 26 mmol/L (21-33) 12/08/17 05:30 Anion Gap 10 (10-20) 12/08/17 05:30 BUN 6 mg/dL (7-21) L 12/08/17 05:30 Creatinine 0.4 mg/dl (0.8-1.5) L 12/08/17 05:30 Est GFR ( Amer) > 60 12/08/17 05:30 Est GFR (Non-Af Amer) > 60 12/08/17 05:30 POC Glucose (mg/dL) 94 mg/dL (65-110) 12/06/17 21:53 Random Glucose 89 mg/dL (70-110) 12/08/17 05:30 Calcium 8.1 mg/dL (8.4-10.5) L 12/08/17 05:30 Phosphorus 6.0 mg/dL (2.5-4.5) H 12/08/17 05:30 Magnesium 1.6 mg/dL (1.7-2.2) L 12/08/17 05:30 Iron 46 ug/dL (45-180) 11/30/17 08:37 TIBC 281 ug/dL (261-462) 11/30/17 08:37 % Saturation 16 % (20-55) L 11/30/17 08:37 Transferrin 202.43 mg/dL (206-381) L 11/30/17 08:37 Ferritin 154.0 ng/mL 11/30/17 08:37 Total Bilirubin 0.6 mg/dL (0.2-1.3) 12/08/17 05:30 AST 44 U/L (17-59) 12/08/17 05:30 ALT 26 U/L (7-56) 12/08/17 05:30 Alkaline Phosphatase 87 U/L (38-126) 12/08/17 05:30 Troponin I 0.05 ng/mL D 12/03/17 12:00 C-Reactive Protein 24.40 mg/L (0.0-9.9) H 11/27/17 13:00 Total Protein 5.6 g/dL (5.8-8.3) L 12/08/17 05:30 Albumin 2.3 g/dL (3.0-4.8) L 12/08/17 05:30 Globulin 3.2 gm/dL 12/08/17 05:30 Albumin/Globulin Ratio 0.7 (1.1-1.8) L 12/08/17 05:30 Vitamin B12 438 pg/mL (239-931) 11/30/17 08:37 Folate 6.1 ng/mL 11/30/17 08:37 Procalcitonin < 0.05 NG/ML (0.19-0.49) L 11/25/17 22:37 Free T4 1.68 ng/dL (0.78-2.19) 11/30/17 06:00 Thyroxine (T4) 10.6 ug/dL (5.5-11.0) 11/30/17 06:00 Free T3 pg/mL 2.56 pg/mL (2.77-5.27) L 11/30/17 06:00 Total T3 1.10 ng/mL (0.97-1.69) 11/19/17 07:00 TSH 3rd Generation 0.15 mIU/mL (0.46-4.68) L 11/30/17 06:00 Thyroid Stim Immunoglob <89 % baseline (<140) 11/09/17 06:15 Venous Blood Potassium 3.7 mmol/L (3.6-5.2) 11/29/17 16:04 Urine Color yellow (YELLOW) 12/03/17 01:35 Urine Appearance Slight-cloudy (CLEAR) 12/03/17 01:35 Urine pH 7.5 (4.7-8.0) 12/03/17 01:35 Ur Specific [place] 1.015 (1.005-1.035) 12/03/17 01:35 Urine Protein 30 mg/dL (<30 mg/dL) H 12/03/17 01:35 Urine Glucose (UA) Negative mg/dL (NEGATIVE) 12/03/17 01:35 Urine Ketones Negative mg/dL (NEGATIVE) 12/03/17 01:35 Urine Blood Negative (NEGATIVE) 12/03/17 01:35 Urine Nitrate Negative (NEGATIVE) 12/03/17 01:35 Urine Bilirubin Negative (NEGATIVE) 12/03/17 01:35 Urine Urobilinogen 1.0 E.U./dL (<1 E.U./dL) H 12/03/17 01:35 Ur Leukocyte Esterase Negative Suzanne/uL (NEGATIVE) 12/03/17 01:35 Urine RBC TEST NOT PERFORMED 12/03/17 01:35 Urine WBC 2 - 5 /hpf (0-6) 12/03/17 01:35 Ur Epithelial Cells 4 - 5 /hpf (0-5) 12/03/17 01:35 Amorphous Sediment Moderate 12/03/17 01:35 Urine Bacteria Many (NEG) 11/29/17 14:15 Urine Other Uyeast 11/29/17 14:15 Urine Opiates Screen Negative (NEGATIVE) 12/04/17 12:35 Urine Methadone Screen Negative (NEGATIVE) 12/04/17 12:35 Ur Barbiturates Screen Negative (NEGATIVE) 12/04/17 12:35 Valproic Acid 49 ug/mL (50.0-100.0) L 12/02/17 23:25 Ur Phencyclidine Scrn Negative (NEGATIVE) 12/04/17 12:35 Ur Amphetamines Screen Negative (NEGATIVE) 12/04/17 12:35 U Benzodiazepines Scrn Negative (NEGATIVE) 12/04/17 12:35 U Oth Cocaine Metabols Negative (NEGATIVE) 12/04/17 12:35 U Cannabinoids Screen Negative (NEGATIVE) 12/04/17 12:35 Alcohol, Quantitative < 10 mg/dL (0-10) 11/06/17 00:00 JACI Screen Negative (Negative) 11/27/17 13:00 JACI Nuclear Membr Pat Cancelled 11/27/17 13:00 ANCA Screen Negative (NEGATIVE) 11/28/17 12:30 c-ANCA Titer TNP 11/28/17 12:30 Proteinase 3 (PR3) <1.0 AI (<1.0) 11/28/17 12:30 p-ANCA Titer TNP 11/28/17 12:30 Atypical p-ANCA Titer TNP 11/28/17 12:30 Myeloperoxidase Ab <1.0 AI (<1.0) 11/28/17 12:30 RPR Nonreactive (NONREACTIVE) 11/26/17 06:00 Lyme Disease Screen <0.90 index 11/30/17 06:00 Lyme IgG 18 kDa Band Nonreactive 11/30/17 06:00 Lyme IgG 23 kDa Band Nonreactive 11/30/17 06:00 Lyme IgG 28 kDa Band Nonreactive 11/30/17 06:00 Lyme IgG 30 kDa Band Nonreactive 11/30/17 06:00 Lyme IgG 39 kDa Band Nonreactive 11/30/17 06:00 Lyme IgG 41 kDa Band Nonreactive 11/30/17 06:00 Lyme IgG 45 kDa Band Nonreactive 11/30/17 06:00 Lyme IgG 58 kDa Band Nonreactive 11/30/17 06:00 Lyme IgG 66 kDa Band Reactive H 11/30/17 06:00 Lyme IgG 93 kDa Band Nonreactive 11/30/17 06:00 Lyme IgG W Blot Interp Negative (Negative) 11/30/17 06:00 Lyme IgM 23 kDa Band Nonreactive 11/30/17 06:00 Lyme IgM 39 kDa Band Nonreactive 11/30/17 06:00 Lyme IgM 41 kDa Band Nonreactive 11/30/17 06:00 Lyme IgM W Blot Interp Negative (Negative) 11/30/17 06:00 Cryptococcus Ag Screen Not detected (Not Detected) 12/05/17 07:45 CMV IgG Ab <0.60 U/mL 11/30/17 06:00 CMV IgM Ab <30.00 AU/mL 11/30/17 06:00 Hepatitis A IgM Ab Negative (NEGATIVE) 11/15/17 21:10 Hep Bs Antigen Negative (NEGATIVE) 11/15/17 21:10 Hep B Core IgM Ab Negative (NEGATIVE) 11/15/17 21:10 Hepatitis C Antibody Negative (NEGATIVE) 11/15/17 21:10 HIV 1&2 Ag/Ab, 4th Gen Nonreactive (Nonreactive) 11/15/17 21:10 Influenza Typ A,B (EIA) Negative for flu a/b (NEGATIVE) 12/03/17 08:30 TB Test (QFT) Nil 0.09 IU/mL 11/28/17 12:04 TB Test Mitogen - Nil 3.55 IU/mL 11/28/17 12:04 TB Test TB - Nil <0.00 IU/mL 11/28/17 12:04 TB Test (QFT) Negative (Negative) 11/28/17 12:04 - Hospital Course Hospital Course: Babar Haro is a 37 yo male with a history of multiple back surgeries and psychiatric disorders who presented to the ED with his mother due to AMS of 2 weeks duration. Neurology and psychiatry were consulted. Patients UDS was positive for benzodiazepines and opiates. Patient was taking several narcotics in addition to benzodiazepines and stimulants, and AMS was attributed to polypharmacy. CT head and MRI brain did not show any acute abnormalities. All medications were stopped, and patient became alert and oriented. Patient was eventually restarted on oxycodone PRN for pain. Patient did not receive adequate PT following his back surgeries, and, thus, had been essentially bed-bound for many months. PT attempted to work with the patient throughout his hospitalization; however, he put in minimal effort and was never able to successfully stand or get out of bed. Patient was observed to have sinus tachycardia at rest. He was diagnosed with hyperthyroidism. Endocrinology was consulted and started the patient on methamizole and propranolol. Patient started to spike fevers about 4 days into his hospitalization. Patient was given multiple antibiotics and antivirals throughout his hospitalization. Sepsis work-up was done several times and all results were negative, including hathaway cultures and imaging. With each fever, patient tended to become altered/delirious. On 11/29, patients HR increased to 160s, regular rhythm, at rest and patients mental status was altered. CTA and V/Q scan were done to rule out PE. Patient was moved to remote telemetry and cardiology was consulted. Neurology was reconsulted, and video EEG was done. This revealed abnormal activity with epileptiform waves. Patient was started on Depakote. On the night of 12/02, patient suddenly became bradycardic and a rapid response was called. Patient was transferred to the ICU. A few hours later, patient had cardiac arrest. ROSC was achieved; however, about 30 minutes later, patient coded again and was resuscitated. Unfortunately, the patient suffered anoxic injury. He was intubated and placed on a ventilator. Family was informed of patients extremely poor prognosis. Brain flow scan was completed and did not should any blood flow. Patients family decided to remove the patient from the ventilator, and patient on the night of 12/08. Discharge Exam - Head Exam Head Exam: ATRAUMATIC, NORMAL INSPECTION - Eye Exam Pupil Exam: Fixed, Mydriatic - ENT Exam ENT Exam: Mucous Membranes Moist - Respiratory Exam Additional comments: no breath sounds - Cardiovascular Exam Additional comments: no heart sounds, no pulse - GI/Abdominal Exam GI & Abdominal Exam: Soft Additional comments: absent bowel sounds - Rectal Exam Rectal Exam: Deferred - Extremities Exam Additional comments: atrophied no pulses present - Back Exam Additional comments: well-healed midline vertical surgical scar - Neurological Exam Additional comments: unresponsive absent reflexes - Skin Skin Exam: Dry, Intact, Pallor Discharge Plan - Follow Up Plan Condition: Disposition: WITH WITHOUT AUTOPSY Referrals: Butch Gasca MD [Primary Care Provider] - <Jomar Greer - Last Filed: 12/10/17 16:18> Provider - Provider Date of Admission: 11/06/17 16:22 Attending physician: Jomar Greer MD Primary care physician: Butch Gasca MD Hospital Course - Lab Results Lab Results: Micro Results 12/02/17 23:25 Blood-Venous Blood Culture - Final NO GROWTH AFTER 5 DAYS 12/02/17 23:25 Blood-Venous Gram Stain - Final TEST NOT PERFORMED 12/02/17 23:25 Blood-Venous Blood Culture - Final NO GROWTH AFTER 5 DAYS 12/02/17 23:25 Blood-Venous Gram Stain - Final TEST NOT PERFORMED 11/29/17 16:04 Blood-Venous Blood Culture - Final NO GROWTH AFTER 5 DAYS 11/29/17 16:04 Blood-Venous Gram Stain - Final TEST NOT PERFORMED 11/29/17 16:04 Blood-Venous Blood Culture - Final NO GROWTH AFTER 5 DAYS 11/29/17 16:04 Blood-Venous Gram Stain - Final TEST NOT PERFORMED 12/03/17 01:30 Urine,Laureano Urine Culture - Final No Growth (<1,000 CFU/ML) 11/29/17 14:15 Urine,Laureano Urine Culture - Final No Growth (<1,000 CFU/ML) 11/25/17 22:37 Blood Blood Culture - Final NO GROWTH AFTER 5 DAYS 11/25/17 22:37 Blood Gram Stain - Final TEST NOT PERFORMED 11/25/17 22:37 Blood Blood Culture - Final NO GROWTH AFTER 5 DAYS 11/25/17 22:37 Blood Gram Stain - Final TEST NOT PERFORMED 11/25/17 23:30 Sputum Gram Stain - Final 11/25/17 23:30 Sputum Sputum Culture - Final NORMAL ORAL PHIL 11/26/17 09:41 Urine,Catheterized Urine Culture - Final No Growth (<1,000 CFU/ML) 11/21/17 12:40 Blood-Venous Blood Culture - Final NO GROWTH AFTER 5 DAYS 11/21/17 12:40 Blood-Venous Gram Stain - Final TEST NOT PERFORMED 11/21/17 12:20 Blood-Venous Blood Culture - Final NO GROWTH AFTER 5 DAYS 11/21/17 12:20 Blood-Venous Gram Stain - Final TEST NOT PERFORMED 11/22/17 13:27 Nose MRSA Culture (Admit) - Final MRSA NOT DETECTED 11/15/17 21:10 Blood Blood Culture - Final NO GROWTH AFTER 5 DAYS 11/15/17 21:10 Blood Gram Stain - Final TEST NOT PERFORMED 11/15/17 21:00 Blood Blood Culture - Final NO GROWTH AFTER 5 DAYS 11/15/17 21:00 Blood Gram Stain - Final TEST NOT PERFORMED 11/13/17 13:20 Blood Blood Culture - Final NO GROWTH AFTER 5 DAYS 11/13/17 13:20 Blood Gram Stain - Final TEST NOT PERFORMED 11/17/17 03:50 Urine Urine Culture - Final No Growth (<1,000 CFU/ML) 11/15/17 16:22 Urine,Catheterized Urine Culture - Final No Growth (<1,000 CFU/ML) 11/07/17 10:05 Blood-Venous Blood Culture - Final NO GROWTH AFTER 5 DAYS 11/07/17 10:05 Blood-Venous Gram Stain - Final TEST NOT PERFORMED 11/07/17 10:05 Blood-Venous Blood Culture - Final NO GROWTH AFTER 5 DAYS 11/07/17 10:05 Blood-Venous Gram Stain - Final TEST NOT PERFORMED 11/06/17 03:00 Urine Urine Culture - Final <10,000 CFU/ML. MULTIPLE SPECIES. PROBABLE CONTAMINATION. Most Recent Lab Values WBC 6.3 10^3/ul (4.5-11.0) 12/08/17 05:30 RBC 2.53 10^6/uL (3.5-6.1) L 12/08/17 05:30 Hgb 7.2 g/dL (14.0-18.0) L 12/08/17 05:30 Hct 22.3 % (42.0-52.0) L 12/08/17 05:30 MCV 88.1 fl (80.0-105.0) 12/08/17 05:30 MCH 28.5 pg (25.0-35.0) 12/08/17 05:30 MCHC 32.3 g/dl (31.0-37.0) 12/08/17 05:30 RDW 16.3 % (11.5-14.5) H 12/08/17 05:30 Plt Count 166 10^3/uL (120.0-450.0) 12/08/17 05:30 MPV 8.5 fl (7.0-11.0) 12/08/17 05:30 Gran % 67.8 % (50.0-68.0) 12/07/17 05:15 Lymph % (Auto) 21.5 % (22.0-35.0) L 12/07/17 05:15 [place] % (Auto) 9.4 % (1.0-6.0) H 12/07/17 05:15 Eos % (Auto) 1.3 % (1.5-5.0) L 12/07/17 05:15 Baso % (Auto) 0.0 % (0.0-3.0) 12/07/17 05:15 Gran # 3.69 (1.4-6.5) 12/07/17 05:15 Lymph # (Auto) 1.2 (1.2-3.4) 12/07/17 05:15 [place] # (Auto) 0.5 (0.1-0.6) 12/07/17 05:15 Eos # (Auto) 0.1 (0.0-0.7) 12/07/17 05:15 Baso # (Auto) 0.00 K/mm3 (0.0-2.0) 12/07/17 05:15 ESR 80 mm/hr (0.0-15.0) H 11/27/17 13:00 D-Dimer, Quantitative 6102 ng/mlDDU (0-243) H 12/02/17 23:25 pCO2 36 mm/Hg (35-45) 12/06/17 06:21 pO2 143.0 mm/Hg (80-100) H 12/06/17 06:21 HCO3 25.0 mmol/L (21-28) 12/06/17 06:21 ABG pH 7.45 (7.35-7.45) 12/06/17 06:21 ABG Total CO2 26.1 mmol.L (22-28) 12/06/17 06:21 ABG O2 Saturation 100.1 % (95-98) H 12/06/17 06:21 ABG O2 Content 10.9 ML/dl (15-23) L 12/06/17 06:21 ABG Base Excess 1.0 mmol/L (-2.0-3.0) 12/06/17 06:21 ABG Hemoglobin 7.7 g/dL (11.7-17.4) L 12/06/17 06:21 ABG Carboxyhemoglobin 1.7 % (0.5-1.5) H 12/06/17 06:21 POC ABG HHb (Measured) -0.1 % (0-5) L 12/06/17 06: ABG Methemoglobin 1.2 % (0.0-3.0) 12/06/17 06: ABG O2 Capacity 10.9 mL/dl (16-24) L 12/06/17 06:21 VBG pH 7.58 (7.32-7.43) H 11/29/17 16:04 VBG pCO2 32.0 (40-60) L 11/29/17 16:04 VBG HCO3 30.0 mmol/l (21-28) H 11/29/17 16:04 VBG Total CO2 31.0 mmol.L (22-28) H 11/29/17 16:04 VBG O2 Sat (Calc) 98.4 % (40-65) H 11/29/17 16:04 VBG Base Excess 8.1 mmol/L (0.0-2.0) H 11/29/17 16:04 VBG Potassium 3.7 mmol/L (3.6-5.2) 11/29/17 16:04 Hgb O2 Saturation 97.2 % (95.0-98.0) 12/06/17 06:21 Sodium 139.0 mmol/L (132-148) 11/29/17 16:04 Chloride 103.0 mmol/L (98-107) 11/29/17 16:04 Glucose 148 mg/dl (75-110) H 11/29/17 16:04 Lactate 1.3 mmol/L (0.7-2.1) 11/29/17 16:04 FiO2 50.0 % 12/06/17 06:21 Sodium 133 mmol/L (132-148) 12/08/17 05:30 Potassium 3.1 mmol/L (3.6-5.0) L 12/08/17 05:30 Chloride 100 mmol/L (98-107) 12/08/17 05:30 Carbon Dioxide 26 mmol/L (21-33) 12/08/17 05:30 Anion Gap 10 (10-20) 12/08/17 05:30 BUN 6 mg/dL (7-21) L 12/08/17 05:30 Creatinine 0.4 mg/dl (0.8-1.5) L 12/08/17 05:30 Est GFR ( Amer) > 60 12/08/17 05:30 Est GFR (Non-Af Amer) > 60 12/08/17 05:30 POC Glucose (mg/dL) 94 mg/dL (65-110) 12/06/17 21:53 Random Glucose 89 mg/dL (70-110) 12/08/17 05:30 Calcium 8.1 mg/dL (8.4-10.5) L 12/08/17 05:30 Phosphorus 6.0 mg/dL (2.5-4.5) H 12/08/17 05:30 Magnesium 1.6 mg/dL (1.7-2.2) L 12/08/17 05:30 Iron 46 ug/dL (45-180) 11/30/17 08:37 TIBC 281 ug/dL (261-462) 11/30/17 08:37 % Saturation 16 % (20-55) L 11/30/17 08:37 Transferrin 202.43 mg/dL (206-381) L 11/30/17 08:37 Ferritin 154.0 ng/mL 11/30/17 08:37 Total Bilirubin 0.6 mg/dL (0.2-1.3) 12/08/17 05:30 AST 44 U/L (17-59) 12/08/17 05:30 ALT 26 U/L (7-56) 12/08/17 05:30 Alkaline Phosphatase 87 U/L (38-126) 12/08/17 05:30 Troponin I 0.05 ng/mL D 12/03/17 12:00 C-Reactive Protein 24.40 mg/L (0.0-9.9) H 11/27/17 13:00 Total Protein 5.6 g/dL (5.8-8.3) L 12/08/17 05:30 Albumin 2.3 g/dL (3.0-4.8) L 12/08/17 05:30 Globulin 3.2 gm/dL 12/08/17 05:30 Albumin/Globulin Ratio 0.7 (1.1-1.8) L 12/08/17 05:30 Vitamin B12 438 pg/mL (239-931) 11/30/17 08:37 Folate 6.1 ng/mL 11/30/17 08:37 Procalcitonin < 0.05 NG/ML (0.19-0.49) L 11/25/17 22:37 Free T4 1.68 ng/dL (0.78-2.19) 11/30/17 06:00 Thyroxine (T4) 10.6 ug/dL (5.5-11.0) 11/30/17 06:00 Free T3 pg/mL 2.56 pg/mL (2.77-5.27) L 11/30/17 06:00 Total T3 1.10 ng/mL (0.97-1.69) 11/19/17 07:00 TSH 3rd Generation 0.15 mIU/mL (0.46-4.68) L 11/30/17 06:00 Thyroid Stim Immunoglob <89 % baseline (<140) 11/09/17 06:15 Venous Blood Potassium 3.7 mmol/L (3.6-5.2) 11/29/17 16:04 Urine Color yellow (YELLOW) 12/03/17 01:35 Urine Appearance Slight-cloudy (CLEAR) 12/03/17 01:35 Urine pH 7.5 (4.7-8.0) 12/03/17 01:35 Ur Specific [place] 1.015 (1.005-1.035) 12/03/17 01:35 Urine Protein 30 mg/dL (<30 mg/dL) H 12/03/17 01:35 Urine Glucose (UA) Negative mg/dL (NEGATIVE) 12/03/17 01:35 Urine Ketones Negative mg/dL (NEGATIVE) 12/03/17 01:35 Urine Blood Negative (NEGATIVE) 12/03/17 01:35 Urine Nitrate Negative (NEGATIVE) 12/03/17 01:35 Urine Bilirubin Negative (NEGATIVE) 12/03/17 01:35 Urine Urobilinogen 1.0 E.U./dL (<1 E.U./dL) H 12/03/17 01:35 Ur Leukocyte Esterase Negative Suzanne/uL (NEGATIVE) 12/03/17 01:35 Urine RBC TEST NOT PERFORMED 12/03/17 01:35 Urine WBC 2 - 5 /hpf (0-6) 12/03/17 01:35 Ur Epithelial Cells 4 - 5 /hpf (0-5) 12/03/17 01:35 Amorphous Sediment Moderate 12/03/17 01:35 Urine Bacteria Many (NEG) 11/29/17 14:15 Urine Other Uyeast 11/29/17 14:15 Urine Opiates Screen Negative (NEGATIVE) 12/04/17 12:35 Urine Methadone Screen Negative (NEGATIVE) 12/04/17 12:35 Ur Barbiturates Screen Negative (NEGATIVE) 12/04/17 12:35 Valproic Acid 49 ug/mL (50.0-100.0) L 12/02/17 23:25 Ur Phencyclidine Scrn Negative (NEGATIVE) 12/04/17 12:35 Ur Amphetamines Screen Negative (NEGATIVE) 12/04/17 12:35 U Benzodiazepines Scrn Negative (NEGATIVE) 12/04/17 12:35 U Oth Cocaine Metabols Negative (NEGATIVE) 12/04/17 12:35 U Cannabinoids Screen Negative (NEGATIVE) 12/04/17 12:35 Alcohol, Quantitative < 10 mg/dL (0-10) 11/06/17 00:00 JACI Screen Negative (Negative) 11/27/17 13:00 JACI Nuclear Membr Pat Cancelled 11/27/17 13:00 ANCA Screen Negative (NEGATIVE) 11/28/17 12:30 c-ANCA Titer TNP 11/28/17 12:30 Proteinase 3 (PR3) <1.0 AI (<1.0) 11/28/17 12:30 p-ANCA Titer TNP 11/28/17 12:30 Atypical p-ANCA Titer TNP 11/28/17 12:30 Myeloperoxidase Ab <1.0 AI (<1.0) 11/28/17 12:30 RPR Nonreactive (NONREACTIVE) 11/26/17 06:00 Lyme Disease Screen <0.90 index 11/30/17 06:00 Lyme IgG 18 kDa Band Nonreactive 11/30/17 06:00 Lyme IgG 23 kDa Band Nonreactive 11/30/17 06:00 Lyme IgG 28 kDa Band Nonreactive 11/30/17 06:00 Lyme IgG 30 kDa Band Nonreactive 11/30/17 06:00 Lyme IgG 39 kDa Band Nonreactive 11/30/17 06:00 Lyme IgG 41 kDa Band Nonreactive 11/30/17 06:00 Lyme IgG 45 kDa Band Nonreactive 11/30/17 06:00 Lyme IgG 58 kDa Band Nonreactive 11/30/17 06:00 Lyme IgG 66 kDa Band Reactive H 11/30/17 06:00 Lyme IgG 93 kDa Band Nonreactive 11/30/17 06:00 Lyme IgG W Blot Interp Negative (Negative) 11/30/17 06:00 Lyme IgM 23 kDa Band Nonreactive 11/30/17 06:00 Lyme IgM 39 kDa Band Nonreactive 11/30/17 06:00 Lyme IgM 41 kDa Band Nonreactive 11/30/17 06:00 Lyme IgM W Blot Interp Negative (Negative) 11/30/17 06:00 Cryptococcus Ag Screen Not detected (Not Detected) 12/05/17 07:45 CMV IgG Ab <0.60 U/mL 11/30/17 06:00 CMV IgM Ab <30.00 AU/mL 11/30/17 06:00 Hepatitis A IgM Ab Negative (NEGATIVE) 11/15/17 21:10 Hep Bs Antigen Negative (NEGATIVE) 11/15/17 21:10 Hep B Core IgM Ab Negative (NEGATIVE) 11/15/17 21:10 Hepatitis C Antibody Negative (NEGATIVE) 11/15/17 21:10 HIV 1&2 Ag/Ab, 4th Gen Nonreactive (Nonreactive) 11/15/17 21:10 Influenza Typ A,B (EIA) Negative for flu a/b (NEGATIVE) 12/03/17 08:30 TB Test (QFT) Nil 0.09 IU/mL 11/28/17 12:04 TB Test Mitogen - Nil 3.55 IU/mL 11/28/17 12:04 TB Test TB - Nil <0.00 IU/mL 11/28/17 12:04 TB Test (QFT) Negative (Negative) 11/28/17 12:04 Attending/Attestation - Attestation I have personally seen and examined this patient.: Yes I have fully participated in the care of the patient.: Yes I have reviewed all pertinent clinical information, including history, physical exam and plan: Yes Notes (Text): 12/10/17 16:13 attending note; Patient seen and examined with resident in ICU yesterday evening. family by the bedside for terminal weaning. Patient is a 37 year old male with past medical history that is significant for cervical radiculopathy with herniated disc, cervical spondylosis with myelopathy, thoracic spondylosis, opiate dependency and depression that presented to the emergency room with visual hallucinations. Initially altered mental status was assumed due to polypharmacy And psychiatric illness. patient had a prolonged hospital course. Patient had intermittent fevers. Treated with multiple antibiotics and antivirals medication. Initially patient refused LP. Seen by neurologist, infectious disease specialist and gas compressor operator. LP was planned. Bone marrow biopsy was planned. Patient deteriorated and coded. And found to be brain . Multiple scans and MRI did not reveal any infectious or malignant process. The reason for intermittent fevers unknown. We will discuss with medical laboratory technicians for autopsy. 1. Anoxic encephalopathy. S/P code blue x 2. Patient intubated. no pupillary response. No gag reflex. Patient with no activity on video EEG. cerebral flow scan shows complete absence of intracranial blood flow.Continue with pressors. Family aware of the scan results. terminal extubation done. Patient pronounced. [employer]'s Office called. Case discussed with medical laboratory technicians's office this morning. accepted for autopsy by medical laboratory technicians. Body sent to [facility] [place]. certificate initiated but not signed.
== END 2017-12-09 06:11 | DRG 533 ==
LOC: ED 23:30 → ERH 11-06 16:22 → 5RNO 11-06 20:17 → 3RSO 11-29 14:30 → ICU 12-02 19:31
PROVIDERS: ADMIT Hospitalist; ATTEND Internal Medicine
PROC: 5A1955Z Respiratory Ventilation, Greater than 96 Consecutive Hours (ICD-10-PCS; principal; 2017-12-02)
PROC: 0BH17EZ Insertion of Endotracheal Airway into Trachea, Via Natural or Artificial Opening (ICD-10-PCS; 2017-12-02)
DX: G92 Toxic encephalopathy (principal); F05 Delirium due to known physiological condition; T40.605A Adverse effect of unspecified narcotics, initial encounter; G93.1 Anoxic brain damage, not elsewhere classified; J96.90 Respiratory failure, unspecified, unspecified whether with hypoxia or hypercapnia; R65.10 Systemic inflammatory response syndrome (SIRS) of non-infectious origin without acute organ dysfunction; F11.20 Opioid dependence, uncomplicated; M50.00 Cervical disc disorder with myelopathy, unspecified cervical region; E87.6 Hypokalemia; E05.90 Thyrotoxicosis, unspecified without thyrotoxic crisis or storm; J44.9 Chronic obstructive pulmonary disease, unspecified; M47.12 Other spondylosis with myelopathy, cervical region; R56.9 Unspecified convulsions; G89.4 Chronic pain syndrome; M50.10 Cervical disc disorder with radiculopathy, unspecified cervical region; K59.03 Drug induced constipation; R40.2434 Glasgow coma scale score 3-8, 24 hours or more after hospital admission; M62.50 Muscle wasting and atrophy, not elsewhere classified, unspecified site; F32.9 Major depressive disorder, single episode, unspecified; F17.200 Nicotine dependence, unspecified, uncomplicated; K21.9 Gastro-esophageal reflux disease without esophagitis; M51.14 Intervertebral disc disorders with radiculopathy, thoracic region; I10 Essential (primary) hypertension; E06.3 Autoimmune thyroiditis; F41.9 Anxiety disorder, unspecified; I25.10 Atherosclerotic heart disease of native coronary artery without angina pectoris; Z51.5 Encounter for palliative care; Z66 Do not resuscitate; M25.78 Osteophyte, vertebrae; I95.9 Hypotension, unspecified; I49.8 Other specified cardiac arrhythmias; M48.04 Spinal stenosis, thoracic region; Z74.01 Bed confinement status; Z98.1 Arthrodesis status